=== PATIENT | female | born 1990 | race American Indian/Alaskan Native ===

== ENCOUNTER 2020-10-26 23:12 | Emergency (ER) | payer OTHER ==
--- OUTSIDE RECORDS SUMMARY | 2020-10-26 23:15 | XMS REPORT | Continuity of Care Document ---
:1990 Author Organization [facility] t Address [address] [place] [address] Care Team Providers Name Role Phone Ene Nieto PA-C Attending Clinician Doctor Unassigned, [place] Attending Clinician Unavailable Jorge L Tejeda MD Attending Clinician Nurse, [facility] Attending Clinician Unavailable Jorge L Tejeda MD Admitting Clinician Problems This patient has no known problems. Allergies, Adverse Reactions, Alerts This patient has no known allergies or adverse reactions. Medications This patient has no known medications. Procedures This patient has no known procedures. Encounters Start End Encounter Admission Attending Care Care Encounter Source Date/Time Date/Time Type Type Clinicians Facility Department ID 2020-07-02 2020-07-02 Routine NU Nieto [id number] 11:06:01 11:21:01 Ene Khan [id number] Visit [place] [id number] Professio [phone] [address] 2020-07-02 2020-07-02 Orders Doctor FLOR [id number] 00:00:00 00:00:00 Only UnassALTON ayala [id number] [place] [facility] [id number] 2020-06-14 2020-06-14 Telephone Darlene Tejeda [place]ER[place] [id number] 00:00:00 00:00:00 [place] [id number] [place] [id number] Professio [phone] [facility] 134 [facility] 2020-06-14 2020-06-14 Orders Doctor FLOR [id number] 00:00:00 00:00:00 Only Unassigned, [place] [id number] [place] [facility] [id number] [id number] 2020-06-11 2020-06-11 Nurse Nurse, [facility] [id number] 14:14:54 14:37:51 [facility] [place] [id number] [facility] [id number] Professio [phone] [facility] 134 [facility] 2020-06-03 2020-06-04 Hospital Darlene Tejeda [facility] [id number] 05:33:00 18:30:00 Encounter [place] [id number] [place] [id number] [place] [id number] [id number] 2020-06-03 2020-06-03 Orders Doctor FLOR [id number] 00:00:00 00:00:00 Only Unassigned, [place] [id number] [place] [facility] [id number] [id number] 2020-05-28 2020-05-28 Routine Darlene Tejeda [facility] [id number] 16:00:11 16:49:53 [place] [id number] Visit [place] [id number] Profess[facility] [phone] [address] Results This patient has no known results.
--- NOTE | 2020-10-27 00:13 | ER ---
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 Coronavirus screen: Client presents with at least one sign or symptom that may indicate coronavirus-19. Standard/surgical mask placed on the client. Provider contacted for isolation considerations. Client reports previous positive COVID test result. Date of collection: October 23, 2020. Ebola Screen: Patient negative for fever greater than or equal to 101.5 degrees Fahrenheit, and additional compatible Ebola Virus Disease symptoms Patient denies exposure to infectious person. Patient denies travel to an Ebola-affected area in the 21 days before illness onset. No symptoms or risks identified at this time. Initial Sepsis Screen: Does the patient meet any 2 criteria? HR > 90 bpm. No. Patient's initial sepsis screen is negative. Does the patient have a suspected source of infection? Yes: Productive cough/pneumonia. Risk Assessment: Do you want to hurt yourself or someone else? Patient reports no desire to harm self or others. Onset of symptoms was October 26, 2020. 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 - Social history:: Smoking status: Patient denies any tobacco usage or history of. Screenin:45 Abuse screen: Denies threats or abuse. Nutritional screening: No deficits noted. em Tuberculosis screening: No symptoms or risk factors identified. Fall Risk None identified. Assessment: 23:45 General: Appears in no apparent distress. comfortable, Behavior is calm, cooperative, em appropriate for age, Reports fever for 12-24 hours. Pain: Complains of pain in chest Pain currently is 4 out of 10 on a pain scale. Neuro: Level of Consciousness is awake, alert, obeys commands, Oriented to person, place, time, situation. Cardiovascular: Capillary refill < 3 seconds Patient's skin is warm and dry. Respiratory: Reports cough that is dry, hacking, pain with cough pain with movement pain with respiration Airway is patent Respiratory effort is even, unlabored. GI: Reports nausea. Derm: Skin is intact, is healthy with good turgor, Skin is pink, warm \T\ dry. Musculoskeletal: Capillary refill < 3 seconds, Range of motion: intact in all extremities. Vital Signs: 23:46 BP 141 / 97; Pulse 99; Resp 18; Temp 99.4(TE); Pulse Ox 100% on R/A; Weight 111.58 kg; em Height 5 ft. 6 in. (167.64 cm); Pain 4/10; 23:46 Body Mass Index 39.71 (111.58 kg, 167.64 cm) em ED Course: 23:30 Patient arrived in ED. am4 23:45 [facility] Wynne F[facility]-C [facility]. snw 23:45 Sohail Lopez MD is Attending Physician. snw 23:45 Patient has correct armband on for positive identification. Bed in low position. Adult em w/ patient. 23:50 Triage completed. em 23:50 Arm band placed on. em 10/27 00:17 Schuyler Rhodes, RN is Primary Nurse. fu 00:26 No provider procedures requiring assistance completed. Patient did not have IV access em during this emergency room visit. Administered Medications: No medications were administered Outcome: 00:12 Discharge ordered by . snw 00:41 Discharged to home ambulatory. em 00:41 Condition: stable 00:41 Discharge instructions given to patient, Instructed on discharge instructions, follow up and referral plans. medication usage, Demonstrated understanding of instructions, follow-up care, medications, Prescriptions given X 2. 00:43 Patient left the ED. em Signatures: Michelle Wynne FNP-C FNP-Benjamin Yanez RN RN Schyuler Rhodes, Malgorzata Shay RN am4
--- NOTE | 2020-10-27 00:13 | EDPHYS ---
Physician Documentation [facility] Name: Cecelia Polk Age: 30 yrs Sex: Female : 1990 Arrival Date: 10/26/2020 Time: 23:30 Bed 27 Private MD: ED Physician Sohail Lopez HPI: 10/27 00:48 This 30 yrs old Female presents to ER via Ambulatory with complaints of COVID SYMPTOMS. snw 00:48 Onset: The symptoms/episode began/occurred acutely, 8 day(s) ago, pt had Covid test at [facility] which was positive on . Pt has 4 month old that is . Associated signs and symptoms: Pertinent positives: congestion, cough, fever, shortness of breath, sore throat. The patient has not experienced similar symptoms in the past. The patient has not recently seen a physician. 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 - Social history:: Smoking status: Patient denies any tobacco usage or history of. ROS: 10/27 00:45 Eyes: Negative for injury, pain, redness, and discharge, ENT: Negative for injury, snw pain, and discharge, Neck: Negative for injury, pain, and swelling, Cardiovascular: Negative for chest pain, palpitations, and edema. Abdomen/GI: Negative for abdominal pain, nausea, vomiting, diarrhea, and constipation, Back: Negative for injury and pain, : Negative for injury, bleeding, discharge, and swelling, MS/Extremity: Negative for injury and deformity, Skin: Negative for injury, rash, and discoloration, Neuro: Negative for headache, weakness, numbness, tingling, and seizure, Psych: Negative for depression, anxiety, suicide ideation, homicidal ideation, and hallucinations. Constitutional: Positive for body aches, fatigue, fever, malaise. Respiratory: Positive for cough, shortness of breath. Exam: 00:45 Constitutional: This is a well developed, well nourished patient who is awake, alert, snw and in no acute distress. Head/Face: Normocephalic, atraumatic. Eyes: Pupils equal round and reactive to light, extra-ocular motions intact. Lids and lashes normal. Conjunctiva and sclera are non-icteric and not injected. Cornea within normal limits. Periorbital areas with no swelling, redness, or edema. ENT: Nares patent. No nasal discharge, no septal abnormalities noted. Tympanic membranes are normal and external auditory canals are clear. Oropharynx with no redness, swelling, or masses, exudates, or evidence of obstruction, uvula midline. Mucous membranes moist. Neck: Trachea midline, no thyromegaly or masses palpated, and no cervical lymphadenopathy. Supple, full range of motion without nuchal rigidity, or vertebral point tenderness. No Meningismus. Chest/axilla: Normal chest wall appearance and motion. Nontender with no deformity. No lesions are appreciated. Cardiovascular: Regular rate and rhythm with a normal S1 and S2. No gallops, murmurs, or rubs. Normal PMI, no JVD. No pulse deficits. Respiratory: Lungs have equal breath sounds bilaterally, clear to auscultation and percussion. No rales, rhonchi or wheezes noted. No increased work of breathing, no retractions or nasal flaring. Abdomen/GI: Soft, non-tender, with normal bowel sounds. No distension or tympany. No guarding or rebound. No evidence of tenderness throughout. Back: No spinal tenderness. No costovertebral tenderness. Full range of motion. Skin: Warm, dry with normal turgor. Normal color with no rashes, no lesions, and no evidence of cellulitis. MS/ Extremity: Pulses equal, no cyanosis. Neurovascular intact. Full, normal range of motion. Neuro: Awake and alert, GCS 15, oriented to person, place, time, and situation. Cranial nerves II-XII grossly intact. Motor strength 5/5 in all extremities. Sensory grossly intact. Cerebellar exam normal. Normal gait. Psych: Awake, alert, with orientation to person, place and time. Behavior, mood, and affect are within normal limits. Vital Signs: 10/26 23:46 BP 141 / 97; Pulse 99; Resp 18; Temp 99.4(TE); Pulse Ox 100% on R/A; Weight 111.58 kg; em Height 5 ft. 6 in. (167.64 cm); Pain 4/10; 23:46 Body Mass Index 39.71 (111.58 kg, 167.64 cm) em MDM: 10/27 00:02 Patient medically screened. snw 00:45 Data reviewed: vital signs, nurses notes. Data interpreted: Pulse oximetry: on room air snw is 100 %. Interpretation: normal. Counseling: I had a detailed discussion with the patient and/or guardian regarding: the historical points, exam findings, and any diagnostic results supporting the discharge/admit diagnosis, the need for outpatient follow up, to return to the emergency department if symptoms worsen or persist or if there are any questions or concerns that arise at home. Special discussion: and medications. Covid and quarantine. Medical screen evaluation completed. EMTALA emergency medical condition absent. ED course: Pt is frustrated that there is no treatment for CoVid. Pt is tired and and having difficulty understandng that there is no specific treatment to make her feel better faster. Administered Medications: No medications were administered Disposition: 06:07 Co-signature as Attending Physician, Sohail Lopez MD. [email or web address] Disposition: 10/27/20 00:12 Discharged to Home. Impression: SARS-associated coronavirus as the cause of diseases classified elsewhere. - Condition is Stable. - Discharge Instructions: Metered Dose Inhaler with Spacer, COVID-19. - Prescriptions for Vitamin 27- 0.8 mg Oral Tablet - take 1 tablet by ORAL route once daily; 60 tablet. Albuterol Sulfate 90 mcg/actuation - inhale 1-2 puff by INHALATION route every 4-6 hours; 1 Inhaler. - Medication Reconciliation Form, Thank You Letter, Antibiotic Education, Prescription Opioid Use form. - Follow up: Emergency Department; When: As needed; Reason: Worsening of condition. Follow up: Private Physician; When: 1 week; Reason: Recheck today's complaints, Continuance of care, Re-evaluation by your physician. Signatures: Michelle Wynne FNP-C REWIND OPERATOR-Benjamin Yanez RN RN Sohail Traylor MD MD [email or web address] Corrections: (The following items were deleted from the chart) 00:43 00:12 10/27/2020 00:12 Discharged to Home. Impression: SARS-associated coronavirus as em the cause of diseases classified elsewhere. Condition is Stable. Forms are Medication Reconciliation Form, Thank You Letter, Antibiotic Education, Prescription Opioid Use. Follow up: Emergency Department; When: As needed; Reason: Worsening of condition. Follow up: Private Physician; When: 1 week; Reason: Recheck today's complaints, Continuance of care, Re-evaluation by your physician. snw
[2020-10-27 01:05] VITALS: BP 141/97; TEMP 99.4; O2SAT 100
== END 2020-10-27 00:43 | disposition home or self-care (01) ==
LOC: ER 23:12
DX: U07.1 COVID-19 (principal)
CPT/HCPCS: 99282

== ENCOUNTER 2021-08-16 23:35 | Emergency (ER) | payer OTHER ==
--- OUTSIDE RECORDS SUMMARY | 2021-08-16 23:40 | XMS REPORT | Continuity of Care Document ---
:1990 Author Organization [facility] t Address [address] [place] [address] [address]. [address] [place] [address] Care Team Providers Name Role Phone ENE RICCI Attending Clinician Unavailable KAYLEEN SCHAEFER Attending Clinician Unavailable Betzy Griggs MD Attending Clinician Keiry NOONAN Attending Clinician Doctor Unassigned, Name Attending Clinician Unavailable Nurse, Women's Health Attending Clinician Unavailable BETZY GRIGGS Attending Clinician Unavailable Only, Test Attending Clinician Unavailable 2, Lab Attending Clinician Unavailable Ultrasound, Mfm Attending Clinician Unavailable Lab, Fam Pob I Attending Clinician Unavailable Anene [employer] Attending Clinician Ultrasound Attending Clinician Unavailable Rao CORDERO, F Attending Clinician Betzy Griggs MD Admitting Clinician BETZY GRIGGS Admitting Clinician Unavailable Payers Payer Name Policy Type Policy Number Effective Date Expiration Date S cj [employer] [id number] 2019 HEALTH 00:00:00 Problems Condition Condition Condition Status Onset Resolution Last Treating Co mments Source Name Details Category Date Date Treatment Clinician Date 39 weeks 39 weeks Disease Active 2019-08 Unive rs gestation gestation 0-26 ity of of of 00:00: [place] 00 [facility] Liveborn Liveborn Disease Active 2019-08 Unive rs , of , of 0-26 [place] y of [place] , , [place] born in born in [facility] by by delivery delivery Morbid Morbid Disease Active Univers obesity obesity 8-28 ity of with body with body [place] mass index mass index 00 Me dical of of Branch 40.0-49.9 40.0-49.9 Obesity Obesity Disease Active Univers (BMI (BMI 4-20 ity of 30-39.9) 30-39.9) 00:00: [place] 00 Medical [place] Mild Mild Disease Active Univers intermitte intermitte 4-20 it y of nt asthma nt asthma 00:[place] without without 00 Medical complicati complicati Br anch on on Supervisio Supervisio Disease Active U nivers n of other n of other 4-20 it y of normal normal 00:00: [place] 00 [facility] Previous Previous Disease Active Unive rs 4-20 ity of section section 00:00: [address] Allergies, Adverse Reactions, Alerts Allergy Allergy Status Severity Reaction(s) Onset Inactive Treating Comm ents Source Name Type Date Date Clinician NO KNOWN Drug Active Univers ALLERGIE Class ity of S [facility] Social History Social Habit Start Date Stop Date Quantity Comments Source ASSERTION 2019-09-17 [facility] 00:00:00 [facility] Exposure to Not sure [facility] SARS-CoV-[address] [facility] (event) [place] Alcohol intake 2020-07-02 2020-07-02 Ex-drinker [facility] 00:00:00 00:00:00 (finding) [facility] Tobacco use and 2020-07-02 2020-07-02 Never used Universit y of exposure 00:00:00 00:00:00 [facility] Sex [birth year] Universit y of 00:00:00 00:00:00 [facility] Smoking Status Start Date Stop Date Source Never smoker [facility] Medications Ordered Filled Start Stop Current Ordering Indication Dosage Frequency Signature Comments Components Source Medication Medication Date Date Medication? Clinician (SIG) Name Name norethindro 2019-08 Yes [id number] 1{tbl} Take 1 Univers ne 0.35 mg 1-24 tablet by ity of tablet 00:00: mouth [place] 00 daily. Medical Branch norethindro 2019-08 Yes [id number] 1{tbl} Take 1 Univers ne 0.35 mg 1-24 tablet by ity of tablet 00:00: mouth [place] 00 daily. Medical Branch norethindro 2019-08 Yes [id number] 1{tbl} Take 1 Univers ne 0.35 mg 1-24 tablet by ity of tablet 00:00: mouth 00 daily. Medical Branch ibuprofen 2019-08 Yes 600mg 600 mg, Univ ers (IBU) 0-28 Oral, Q6H ity of tablet 600 05:00: ABX, First [place] mg 00 dose on Medical Wed Branch 06/05/20 at 0000, Until Discontinu ed, Routine PNV 2019-08 2020- No Take by [facility] 102-iron-fo 0-27 27 mouth. ity o f late 15:53: 00:00 [place] 1-dss-dha 17 :00 Medical 90 mg Branch iron-1 mg -50 mg-200 mg Cap HYDROcodone 2019-08 Yes 1{tbl} 1 tablet, Univers -acetaminop 027 Oral, ity of hen (NORCO 15:49: Q6HPRN, [place] 5) 5-325 mg 16 Starting Medi sarbjit tablet 1 Wed tablet 06/04/20 at 1049, Until Discontinu ed, Routine, Pain (scale 7-10) acetaminoph 2019-08 Yes 650mg 650 mg, Un neal en 027 Oral, Q6H ity of (TYLENOL) 13:45: ABX, First [place] tablet 650 00 dose on Medica l mg Wed [place] 06/04/20 at 0845, Until Discontinu ed, Routine ketorolac 2019-08 2020- No 30mg 30 mg, Unive rs (TORADOL) 006-04 Slow IV ity of injection 05:00: 22:40 Push, Q6H [place] 30 mg 00 :00 ABX, 4 Medical doses, Branch First dose on Wed06/04/20 at 0000, Last dose on Wed06/04/20 at 1800, Routine
membership coordinator approving Restricted medication : KINDRA GRIGGS CAM gabapentin 2019-08 Yes 300mg 300 mg, Uni vers (NEURONTIN) 0-27 Oral, Q8H, it y of capsule 300 03:00: First dose [place] mg 00 (after Medical last Branch modificati on) on 06/03/20 at 2200, Until Discontinu ed, Routine acetaminoph 2020-1 Yes [id number] 650mg Take 2 Univers en 325 mg 0-27 tablets by ity of tablet 00:00: mouth [place] 00 every 6 Medical (six) Branch hours as needed for Pain (scale 1-3) or Pain (scale 4-6). 2019-08 Yes [id number] 1{tbl} Take 1 Univers vitamin 0-27 tablet by ity of w/FA tablet 00:00: mouth [place] 00 daily. Medical Branch docusate 2019-08 Yes [id number] 240mg Take 1 U nivers calcium 240 0-27 capsule by it y of mg capsule 00:00: mouth once [place] 00 daily as Medical needed for Branch Constipati on. ferrous 2019-08 Yes [id number] 325mg Take 1 Un neal sulfate 325 0-27 tablet by ity of mg (65 mg 00:00: mouth 2 [place] iron) 00 (two) Medical tablet times Branch daily. ibuprofen 2019-08 Yes [id number] 600mg Take 1 Univers 600 mg 0-27 tablet by ity of tablet 00:00: mouth [place] 00 every 6 Medical (six) Branch hours as needed for Pain (scale 1-3) or Pain (scale 4-6) (Pain). Take with food or milk. acetaminoph 2019-08 Yes [id number] 650mg Take 2 Univers en 325 mg 0-27 tablets by ity of tablet 00:00: mouth [place] 00 every 6 Medical (six) Branch hours as needed for Pain (scale 1-3) or Pain (scale 4-6). 2019-08 Yes [id number] 1{tbl} Take 1 Univers vitamin 0-27 tablet by ity of w/FA tablet 00:00: mouth [place] 00 daily. Medical Branch docusate 2019-08 Yes [id number] 240mg Take 1 U nivers calcium 240 0-27 capsule by it y of mg capsule 00:00: mouth once [place] 00 daily as Medical needed for Branch Constipati on. ferrous 2019-08 Yes [id number] 325mg Take 1 Un neal sulfate 325 0-27 tablet by ity of mg (65 mg 00:00: mouth 2 [place] iron) 00 (two) Medical tablet times Branch daily. ibuprofen 2019-08 Yes [id number] 600mg Take 1 Univers 600 mg 0-27 tablet by ity of tablet 00:00: mouth [place] 00 every 6 Medical (six) Branch hours as needed for Pain (scale 1-3) or Pain (scale 4-6) (Pain). Take with food or milk. acetaminoph 2019-08 Yes [id number] 650mg Take 2 Univers en 325 mg 0-27 tablets by ity of tablet 00:00: mouth [place] 00 every 6 Medical (six) Branch hours as needed for Pain (scale 1-3) or Pain (scale 4-6). 2019-08 Yes [id number] 1{tbl} Take 1 Univers vitamin 0-27 tablet by ity of w/FA tablet 00:00: mouth [place] 00 daily. Medical Branch docusate 2019-08 Yes [id number] 240mg Take 1 U nivers calcium 240 0-27 capsule by it y of mg capsule 00:00: mouth once [place] 00 daily as Medical needed for Branch Constipati on. ferrous 2019-08 Yes [id number] 325mg Take 1 Un neal sulfate 325 0-27 tablet by ity of mg (65 mg 00:00: mouth 2 [place] iron) 00 (two) Medical tablet times Branch daily. ibuprofen 2019-08 Yes [id number] 600mg Take 1 Univers 600 mg 0-27 tablet by ity of tablet 00:00: mouth [place] 00 every 6 Medical (six) Branch hours as needed for Pain (scale 1-3) or Pain (scale 4-6) (Pain). Take with food or milk. acetaminoph 2019-08 Yes [id number] 650mg Take 2 Univers en 325 mg 0-27 tablets by ity of tablet 00:00: mouth [place] 00 every 6 Medical (six) Branch hours as needed for Pain (scale 1-3) or Pain (scale 4-6). 2019-08 Yes [id number] 1{tbl} Take 1 Univers vitamin 0-27 tablet by ity of w/FA tablet 00:00: mouth [place] 00 daily. Medical Branch docusate 2019-08 Yes [id number] 240mg Take 1 U nivers calcium 240 0-27 capsule by it y of mg capsule 00:00: mouth once [place] 00 daily as Medical needed for Branch Constipati on. ferrous 2019-08 Yes [id number] 325mg Take 1 Un neal sulfate 325 0-27 tablet by ity of mg (65 mg 00:00: mouth 2 [place] iron) 00 (two) Medical tablet times Branch daily. ibuprofen 2019-08 Yes [id number] 600mg Take 1 Univers 600 mg 0-27 tablet by ity of tablet 00:00: mouth [place] 00 every 6 Medical (six) Branch hours as needed for Pain (scale 1-3) or Pain (scale 4-6) (Pain). Take with food or milk. acetaminoph 2019-08 Yes [id number] 650mg Take 2 Univers en 325 mg 0-27 tablets by ity of tablet 00:00: mouth [place] 00 every 6 Medical (six) Branch hours as needed for Pain (scale 1-3) or Pain (scale 4-6). 2019-08 Yes [id number] 1{tbl} Take 1 Univers vitamin 0-27 tablet by ity of w/FA tablet 00:00: mouth [place] 00 daily. Medical Branch docusate 2019-08 Yes [id number] 240mg Take 1 U nivers calcium 240 0-27 capsule by it y of mg capsule 00:00: mouth once [place] 00 daily as Medical needed for Branch Constipati on. ferrous 2019-08 Yes [id number] 325mg Take 1 Un neal sulfate 325 0-27 tablet by ity of mg (65 mg 00:00: mouth 2 [place] iron) 00 (two) Medical tablet times Branch daily. ibuprofen 2019-08 Yes [id number] 600mg Take 1 Univers 600 mg 0-27 tablet by ity of tablet 00:00: mouth [place] 00 every 6 Medical (six) Branch hours as needed for Pain (scale 1-3) or Pain (scale 4-6) (Pain). Take with food or milk. acetaminoph 2019-08 Yes [id number] 650mg Take 2 Univers en 325 mg 0-27 tablets by ity of tablet 00:00: mouth [place] 00 every 6 Medical (six) Branch hours as needed for Pain (scale 1-3) or Pain (scale 4-6). 2019-08 Yes [id number] 1{tbl} Take 1 Univers vitamin 0-27 tablet by ity of w/FA tablet 00:00: mouth [place] 00 daily. Medical Branch ferrous 2019-08 Yes [id number] 325mg Take 1 Un neal sulfate 325 0-27 tablet by ity of mg (65 mg 00:00: mouth 2 [place] iron) 00 (two) Medical tablet times Branch daily. ibuprofen 2020-1 Yes [id number] 600mg Take 1 Univers 600 mg 0-27 tablet by ity of tablet 00:00: mouth [place] 00 every 6 Medical (six) Branch hours as needed for Pain (scale 1-3) or Pain (scale 4-6) (Pain). Take with food or milk. acetaminoph 2019-08 Yes [id number] 650mg Take 2 Univers en 325 mg 0-27 tablets by ity of tablet 00:00: mouth [place] 00 every 6 Medical (six) Branch hours as needed for Pain (scale 1-3) or Pain (scale 4-6). 2019-08 Yes [id number] 1{tbl} Take 1 Univers vitamin 0-27 tablet by ity of w/FA tablet 00:00: mouth [place] 00 daily. Medical Branch ferrous 2019-08 Yes [id number] 325mg Take 1 Un neal sulfate 325 0-27 tablet by ity of mg (65 mg 00:00: mouth 2 [place] iron) 00 (two) Medical tablet times Branch daily. ibuprofen 2019-08 Yes [id number] 600mg Take 1 Univers 600 mg 0-27 tablet by ity of tablet 00:00: mouth [place] 00 every 6 Medical (six) Branch hours as needed for Pain (scale 1-3) or Pain (scale 4-6) (Pain). Take with food or milk. acetaminoph 2019-08 Yes [id number] 650mg Take 2 Univers en 325 mg 0-27 tablets by ity of tablet 00:00: mouth [place] 00 every 6 Medical (six) Branch hours as needed for Pain (scale 1-3) or Pain (scale 4-6). 2019-08 Yes [id number] 1{tbl} Take 1 Univers vitamin 0-27 tablet by ity of w/FA tablet 00:00: mouth [place] 00 daily. Medical Branch ferrous 2019-08 Yes [id number] 325mg Take 1 Un neal sulfate 325 0-27 tablet by ity of mg (65 mg 00:00: mouth 2 [place] iron) 00 (two) Medical tablet times Branch daily. ibuprofen 2019-08 Yes [id number] 600mg Take 1 Univers 600 mg 0-27 tablet by ity of tablet 00:00: mouth [place] 00 every 6 Medical (six) Branch hours as needed for Pain (scale 1-3) or Pain (scale 4-6) (Pain). Take with food or milk. docusate 2019-08- No [id number] 240mg Take 1 Univers calcium 240 0-27 11-24 capsule by i ty of mg capsule 00:00: 00:00 mouth once [place] 00 :00 daily as Medical needed for Branch Constipati on. HYDROcodone 2019-08- No [id number] 1{tbl} Take 1 U nivers -acetaminop 0-27 11-04 tablet by it y of hen 5-325 00:00: 05:59 mouth [place] mg tablet 00 :00 every 6 Medical (six) Branch hours as needed for Pain (scale 7-10) for up to 7 days. Indication s: acute pain HYDROcodone 2019-08- No [id number] 1{tbl} Take 1 U nivers -acetaminop 0-27 11-04 tablet by it y of hen 5-325 00:00: 05:59 mouth [place] mg tablet 00 :00 every 6 Medical (six) Branch hours as needed for Pain (scale 7-10) for up to 7 days. Indication s: acute pain HYDROcodone 2019-08- No [id number] 1{tbl} Take 1 U nivers -acetaminop 0-27 11-04 tablet by it y of hen 5-325 00:00: 05:59 mouth [place] mg tablet 00 :00 every 6 Medical (six) Branch hours as needed for Pain (scale 7-10) for up to 7 days. Indication s: acute pain gabapentin 2019-08- No [id number] 300mg Take 1 Univers 300 mg 0-27 11-02 capsule by ity of capsule 00:00: 05:59 mouth [place] 00 :00 every 8 Medical (eight) Branch hours for 5 days. gabapentin 2019-08- No [id number] 300mg Take 1 Univers 300 mg 0-27 11-02 capsule by ity of capsule 00:00: 05:59 mouth [place] 00 :00 every 8 Medical (eight) Branch hours for 5 days. acetaminoph 2019-08- No 1000mg 1,000 mg, Univers en ADULT 06-03 IV ity of (OFIRMEV) 19:45: 19:59 Infusion, [place] injection 00 :00 Administer Medi sarbjit 1,000 mg over 15 Branch Minutes, ONCE, 1 dose, Wed06/03/20 at 1445, Routine, PACU
Indicatio n: Perioperat chantal Patient gabapentin 2019-08 2020- No 300mg 300 mg, Un neal (NEURONTIN) 0-26 10-26 Oral, TID, i ty of capsule 300 19:00: 22:40 First dose [place] mg 00 :54 on Mon Medical 06/03/20 Branch at 1400, Until Discontinu ed, Routine simethicone 2019-08 Yes 160mg 160 mg, Un neal (GAS RELIEF 0-26 Oral, ity of (SIMETHICON 18:00: PC+HS, [place] E)) 00 First dose Medical chewable on Wed Branch tablet 160 06/03/20 mg at 1300, Until Discontinu ed, Routine lactated 2019-08 Yes 1000mL at 75 Univer s ringers IV 0-26 mL/hr, ity of infusion 16:30: 1,000 mL, [place] 1,000 mL 00 IV Medical Infusion, Branch CONTINUOUS , Starting 06/03/20 at 1130, Until Discontinu ed, Routine, PACU lactated 2019-08 2020- No 1000mL at 125 Univ ers ringers IV 0-26 10-27 mL/hr, ity of infusion 16:30: 01:01 1,000 mL, [place] 1,000 mL 00 :00 IV Medical Infusion, Branch ONCE, 1 dose, 06/03/20 at 1130, Routine rho(D) 2019-08 Yes 300ug 300 mcg, Univer s immune 0-26 Intramuscu ity of globulin 16:25: lar, ONCE, [place] (RHOGAM) 26 For 1 Medical syringe 300 dose, Branch mcg Conditiona l, Routine ondansetron 2019-08 Yes 4mg 4 mg, Slow Univers (ZOFRAN 0-26 IV Push, ity of (PF)) 16:25: Q8HPRN, [place] injection 4 13 Starting Medi sarbjit mg Mon Branch 06/03/20 at 1125, Until Discontinu ed, Routine, Nausea and Vomiting (N/V) magnesium 2019-08 Yes 30mL 30 mL, Univer s hydroxide 0-26 Oral, ity of (MILK OF 16:25: QDAILYPRN, [place] MAGNESIA) 13 Starting Medica l 400 mg/5 mL Mon Branch suspension 06/03/20 30 mL at 1125, Until Discontinu ed, Routine, Constipati on diphenhydrA 2019-08 Yes 25mg 25 mg, Univ ers MINE 0-26 Oral, ity of (BENADRYL) 16:25: Q6HPRN, [place] tablet 25 12 Starting Medica l mg [facility] 06/03/20 at 1125, Until Discontinu ed, Routine, Sleep, Itching bisacodyL 2019-08 Yes 10mg 10 mg, Univer s (DULCOLAX) 0-26 Rectal, ity of suppository 16:25: QDAILYPRN, [place] 10 mg 12 Starting Medical [facility] 06/03/20 at 1125, Until Discontinu ed, Routine, Constipati on docusate 2019-08 Yes 240mg 240 mg, Unive rs calcium 0-26 Oral, ity of (SURFAK) 16:25: QDAILYPRN, [place] capsule 240 12 Starting Medi sarbjit mg [facility] 06/03/20 at 1125, Until Discontinu ed, Routine, Constipati on ondansetron 2019-08 Yes 4mg 4 mg, Slow Univers (ZOFRAN 0-26 IV Push, ity of (PF)) 16:24: PRN, 1 [place] injection 4 51 dose, Medical mg Starting [facility] 06/03/20 at 1124, Until Discontinu ed, Routine, Nausea and Vomiting (N/V), PACU mupirocin 2019-08 Yes Intra-op Univ ers (BACTROBAN 0-26 ity of OINT) 2 % 14:20: [place] skin 00 Medical ointment Branch lactated 2019-08 2020- No 500mL at 999 Unive rs ringers IV 0-26 10-26 mL/hr, 500 it y of infusion 13:30: 12:37 mL, IV [place] 500 mL 00 :00 Infusion, Medical ONCE, 1 Branch dose, [facility] 06/03/20 at 0830, Routine sodium 2019-08 Yes PRN, Univers chloride 0-26 Starting ity of 0.9 % 13:28: Mon [place] irrigation 00 06/03/20 Medic al solution at 0828, Branch Until Discontinu ed, Intra-op sodium 2019-08 2020- No 30mL 30 mL, Univers citrate-cit 0-26 10-26 Oral, ity of rach acid 12:23: 12:36 PRE-PROCED [place] (BICITRA) 52 :00 URE ONCE, Medic al 500-334 1 dose, Branch mg/5 mL Starting solution 30 Mon mL 06/03/20 at 0723, Until 06/03/20 at 0736, Routine, Surgery PNV 2020-0 Yes Take by [facility] 102-iron-fo 4-20 mouth. ity of late 14:: [place] 1-dss-dha 37 Medical 90 mg Branch iron-1 mg -50 mg-200 mg Cap PNV 2020-0 Yes Take by [facility] 102-iron-fo 4-20 mouth. ity of late 14:: [place] 1-dss-dha 37 Medical 90 mg Branch iron-1 mg -50 mg-200 mg Cap PNV 2020-0 Yes Take by [facility] 102-iron-fo 4-20 mouth. ity of late :: [place] 1-dss-dha 37 Medical 90 mg Branch iron-1 mg -50 mg-200 mg Cap PNV 2020-0 Yes Take by [facility] 102-iron-fo 4-20 mouth. ity of late :: [place] 1-dss-dha 37 Medical 90 mg Branch iron-1 mg -50 mg-200 mg Cap PNV 2020-0 Yes Take by [facility] 102-iron-fo 4-20 mouth. ity of late :: [place] 1-dss-dha 37 Medical 90 mg Branch iron-1 mg -50 mg-200 mg Cap PNV 2020-0 Yes Take by [facility] 102-iron-fo 4-20 mouth. ity of late :: [place] 1-dss-dha 37 Medical 90 mg Branch iron-1 mg -50 mg-200 mg Cap PNV 2020-0 Yes Take by [facility] 102-iron-fo 4-20 mouth. ity of late :: [place] 1-dss-dha 37 Medical 90 mg Branch iron-1 mg -50 mg-200 mg Cap PNV 2020-0 Yes Take by [facility] 102-iron-fo 4-20 mouth. ity of late :: [place] 1-dss-dha 37 Medical 90 mg Branch iron-1 mg -50 mg-200 mg Cap PNV 2020-0 Yes Take by [facility] 102-iron-fo 4-20 mouth. ity of late :: [place] 1-dss-dha 37 Medical 90 mg Branch iron-1 mg -50 mg-200 mg Cap PNV 2020-0 Yes Take by [facility] 102-iron-fo 4-20 mouth. ity of late 14:01: [place] 1-dss-dha 37 Medical 90 mg Branch iron-1 mg -50 mg-200 mg Cap PNV 2020-0 Yes Take by Univers 102-iron-fo 4-20 mouth. ity of late 14:: [place] 1-dss-dha 37 Medical 90 mg Branch iron-1 mg -50 mg-200 mg Cap PNV 2020-0 Yes Take by Univers 102-iron-fo 4-20 mouth. ity of late 14:: [place] 1-dss-dha 37 Medical 90 mg Branch iron-1 mg -50 mg-200 mg Cap PNV 2020-0 Yes Take by Univers 102-iron-fo 4-20 mouth. ity of late 14:: [place] 1-dss-dha 37 Medical 90 mg Branch iron-1 mg -50 mg-200 mg Cap PNV 2020-0 Yes Take by Univers 102-iron-fo 4-20 mouth. ity of late 14:: [place] 1-dss-dha 37 Medical 90 mg Branch iron-1 mg -50 mg-200 mg Cap PNV 2020-0 Yes Take by Univers 102-iron-fo 4-20 mouth. ity of late 14:: [place] 1-dss-dha 37 Medical 90 mg Branch iron-1 mg -50 mg-200 mg Cap PNV 2020-0 Yes Take by Univers 102-iron-fo 4-20 mouth. ity of late 14:: [place] 1-dss-dha 37 Medical 90 mg Branch iron-1 mg -50 mg-200 mg Cap PNV 2020-0 Yes Take by Univers 102-iron-fo 4-20 mouth. ity of late 14:: [place] 1-dss-dha 37 Medical 90 mg Branch iron-1 mg -50 mg-200 mg Cap PNV 2020-0 Yes Take by Univers 102-iron-fo 4-20 mouth. ity of late 14:: [place] 1-dss-dha 37 Medical 90 mg Branch iron-1 mg -50 mg-200 mg Cap PNV 2020-0 Yes Take by Univers 102-iron-fo 4-20 mouth. ity of late 14:: [place] 1-dss-dha 37 Medical 90 mg Branch iron-1 mg -50 mg-200 mg Cap PNV 2020-0 Yes Take by Univers 102-iron-fo 4-20 mouth. ity of late 14:: [place] 1-dss-dha 37 Medical 90 mg Branch iron-1 mg -50 mg-200 mg Cap PNV 2020-0 Yes Take by Univers 102-iron-fo 4-20 mouth. ity of late 14:01: [place] 1-dss-dha 37 Medical 90 mg Branch iron-1 mg -50 mg-200 mg Cap PNV 2020-0 Yes Take by Univers 102-iron-fo 4-20 mouth. ity of late 14:01: [place] Hanna-dss-dha 37 Medical 90 mg Branch iron-1 mg -50 mg-200 mg Cap PNV 2020-0 Yes Take by Univers 102-iron-fo 4-20 mouth. ity of late 14:01: [place] 1-dss-dha 37 Medical 90 mg Branch iron-1 mg -50 mg-200 mg Cap PNV 2020-0 Yes Take by Univers 102-iron-fo 4-20 mouth. ity of late 14:01: [place] Ferreira-dss-dha 37 Medical 90 mg Branch iron-1 mg -50 mg-200 mg Cap PNV 2020-0 Yes Take by Univers 102-iron-fo 4-20 mouth. ity of late 14:: [place] Ferreira-dss-dha 37 Medical 90 mg Branch iron-1 mg -50 mg-200 mg Cap PNV 2020-0 Yes Take by Univers 102-iron-fo 4-20 mouth. ity of late 14:01: [place] 1-dss-dha 37 Medical 90 mg Branch iron-1 mg -50 mg-200 mg Cap PNV 2020-0 Yes Take by Univers 102-iron-fo 4-20 mouth. ity of late 14:: [place] Ferreira-dss-dha 37 Medical 90 mg Branch iron-1 mg -50 mg-200 mg Cap PNV 2020-0 Yes Take by Univers 102-iron-fo 4-20 mouth. ity of late 14:01: [place] 1-dss-dha 37 Medical 90 mg Branch iron-1 mg -50 mg-200 mg Cap PNV 2020-0 Yes Take by Univers 102-iron-fo 4-20 mouth. ity of late 14:01: [place] 1-dss-dha 37 Medical 90 mg Branch iron-1 mg -50 mg-200 mg Cap PNV 2020-0 Yes Take by Univers 102-iron-fo 4-20 mouth. ity of late 14:: [place] 1-dss-dha 37 Medical 90 mg Branch iron-1 mg -50 mg-200 mg Cap PNV 2020-0 Yes Take by [facility] 102-iron-fo 4-20 mouth. ity of late 14:01: [place] Hanna-dss-dha 37 Medical 90 mg Branch iron-1 mg -50 mg-200 mg Cap PNV 2020-0 Yes Take by [facility] 102-iron-fo 4-20 mouth. ity of late 14:01: [place] Hanna-dss-dha 37 Medical 90 mg Branch iron-1 mg -50 mg-200 mg Cap PNV 2020-0 Yes Take by [facility] 102-iron-fo 4-20 mouth. ity of late 14:01: [place] Hanna-dss-dha 37 Medical 90 mg Branch iron-1 mg -50 mg-200 mg Cap PNV 2020-0 Yes Take by [facility] 102-iron-fo 4-20 mouth. ity of late 14:01: [place] Hanna-dss-dha 37 Medical 90 mg Branch iron-1 mg -50 mg-200 mg Cap albuterol 2020-0 Yes [id number] 2{puff} Inhale 2 Univers 90 4-20 Puffs ity of mcg/actuati 00:00: every 6 Dima as on inhaler 00 (six) Medical hours as Branch needed for Wheezing, Shortness of Breath, Bronchospa sm or Chest tightness. albuterol 2020-0 Yes [id number] 2{puff} Inhale 2 Univers 90 4-20 Puffs ity of mcg/actuati 00:00: every 6 Dima as on inhaler 00 (six) Medical hours as Branch needed for Wheezing, Shortness of Breath, Bronchospa sm or Chest tightness. albuterol 2020-0 Yes [id number] 2{puff} Inhale 2 Univers 90 4-20 Puffs ity of mcg/actuati 00:00: every 6 Dima as on inhaler 00 (six) Medical hours as Branch needed for Wheezing, Shortness of Breath, Bronchospa sm or Chest tightness. albuterol 2020-0 Yes [id number] 2{puff} Inhale 2 Univers 90 4-20 Puffs ity of mcg/actuati 00:00: every 6 Dima as on inhaler 00 (six) Medical hours as Branch needed for Wheezing, Shortness of Breath, Bronchospa sm or Chest tightness. albuterol 2020-0 Yes [id number] 2{puff} Inhale 2 Univers 90 4-20 Puffs ity of mcg/actuati 00:00: every 6 Dima as on inhaler 00 (six) Medical hours as Branch needed for Wheezing, Shortness of Breath, Bronchospa sm or Chest tightness. albuterol 2020-0 Yes [id number] 2{puff} Inhale 2 Univers 90 4-20 Puffs ity of mcg/actuati 00:00: every 6 Dima as on inhaler 00 (six) Medical hours as Branch needed for Wheezing, Shortness of Breath, Bronchospa sm or Chest tightness. albuterol 2020-0 Yes [id number] 2{puff} Inhale 2 Univers 90 4-20 Puffs ity of mcg/actuati 00:00: every 6 Dima as on inhaler 00 (six) Medical hours as Branch needed for Wheezing, Shortness of Breath, Bronchospa sm or Chest tightness. albuterol 2020-0 Yes [id number] 2{puff} Inhale 2 Univers 90 4-20 Puffs ity of mcg/actuati 00:00: every 6 Dima as on inhaler 00 (six) Medical hours as Branch needed for Wheezing, Shortness of Breath, Bronchospa sm or Chest tightness. albuterol 2020-0 Yes [id number] 2{puff} Inhale 2 Univers 90 4-20 Puffs ity of mcg/actuati 00:00: every 6 Dima as on inhaler 00 (six) Medical hours as Branch needed for Wheezing, Shortness of Breath, Bronchospa sm or Chest tightness. albuterol 2020-0 Yes [id number] 2{puff} Inhale 2 Univers 90 4-20 Puffs ity of mcg/actuati 00:00: every 6 [place] as on inhaler 00 (six) Medical hours as Branch needed for Wheezing, Shortness of Breath, Bronchospa sm or Chest tightness. albuterol 2020-0 Yes [id number] 2{puff} Inhale 2 Univers 90 4-20 Puffs ity of mcg/actuati 00:00: every 6 [place] as on inhaler 00 (six) Medical hours as Branch needed for Wheezing, Shortness of Breath, Bronchospa sm or Chest tightness. albuterol 2020-0 Yes [id number] 2{puff} Inhale 2 Univers 90 4-20 Puffs ity of mcg/actuati 00:00: every 6 [place] as on inhaler 00 (six) Medical hours as Branch needed for Wheezing, Shortness of Breath, Bronchospa sm or Chest tightness. albuterol 2020-0 Yes [id number] 2{puff} Inhale 2 Univers 90 4-20 Puffs ity of mcg/actuati 00:00: every 6 [place] as on inhaler 00 (six) Medical hours as Branch needed for Wheezing, Shortness of Breath, Bronchospa sm or Chest tightness. albuterol 2020-0 Yes [id number] 2{puff} Inhale 2 Univers 90 4-20 Puffs ity of mcg/actuati 00:00: every 6 [place] as on inhaler 00 (six) Medical hours as Branch needed for Wheezing, Shortness of Breath, Bronchospa sm or Chest tightness. albuterol 2020-0 Yes [id number] 2{puff} Inhale 2 Univers 90 4-20 Puffs ity of mcg/actuati 00:00: every 6 [place] as on inhaler 00 (six) Medical hours as Branch needed for Wheezing, Shortness of Breath, Bronchospa sm or Chest tightness. albuterol 2020-0 Yes [id number] 2{puff} Inhale 2 Univers 90 4-20 Puffs ity of mcg/actuati 00:00: every 6 [place] as on inhaler 00 (six) Medical hours as Branch needed for Wheezing, Shortness of Breath, Bronchospa sm or Chest tightness. albuterol 2020-0 Yes [id number] 2{puff} Inhale 2 Univers 90 4-20 Puffs ity of mcg/actuati 00:00: every 6 [place] as on inhaler 00 (six) Medical hours as Branch needed for Wheezing, Shortness of Breath, Bronchospa sm or Chest tightness. albuterol 2020-0 Yes [id number] 2{puff} Inhale 2 Univers 90 4-20 Puffs ity of mcg/actuati 00:00: every 6 [place] as on inhaler 00 (six) Medical hours as Branch needed for Wheezing, Shortness of Breath, Bronchospa sm or Chest tightness. albuterol 2020-0 Yes [id number] 2{puff} Inhale 2 Univers 90 4-20 Puffs ity of mcg/actuati 00:00: every 6 [place] as on inhaler 00 (six) Medical hours as Branch needed for Wheezing, Shortness of Breath, Bronchospa sm or Chest tightness. albuterol 2020-0 Yes [id number] 2{puff} Inhale 2 Univers 90 4-20 Puffs ity of mcg/actuati 00:00: every 6 [place] as on inhaler 00 (six) Medical hours as Branch needed for Wheezing, Shortness of Breath, Bronchospa sm or Chest tightness. albuterol 2020-0 Yes [id number] 2{puff} Inhale 2 Univers 90 4-20 Puffs ity of mcg/actuati 00:00: every 6 [place] as on inhaler 00 (six) Medical hours as Branch needed for Wheezing, Shortness of Breath, Bronchospa sm or Chest tightness. albuterol 2020-0 Yes [id number] 2{puff} Inhale 2 Univers 90 4-20 Puffs ity of mcg/actuati 00:00: every 6 [place] as on inhaler 00 (six) Medical hours as Branch needed for Wheezing, Shortness of Breath, Bronchospa sm or Chest tightness. albuterol 2020-0 Yes [id number] 2{puff} Inhale 2 Univers 90 4-20 Puffs ity of mcg/actuati 00:00: every 6 [place] as on inhaler 00 (six) Medical hours as Branch needed for Wheezing, Shortness of Breath, Bronchospa sm or Chest tightness. albuterol 2020-0 Yes [id number] 2{puff} Inhale 2 Univers 90 4-20 Puffs ity of mcg/actuati 00:00: every 6 [place] as on inhaler 00 (six) Medical hours as Branch needed for Wheezing, Shortness of Breath, Bronchospa sm or Chest tightness. albuterol 2020-0 Yes [id number] 2{puff} Inhale 2 Univers 90 4-20 Puffs ity of mcg/actuati 00:00: every 6 [place] as on inhaler 00 (six) Medical hours as Branch needed for Wheezing, Shortness of Breath, Bronchospa sm or Chest tightness. albuterol 2020-0 Yes [id number] 2{puff} Inhale 2 Univers 90 4-20 Puffs ity of mcg/actuati 00:00: every 6 [place] as on inhaler 00 (six) Medical hours as Branch needed for Wheezing, Shortness of Breath, Bronchospa sm or Chest tightness. albuterol 2020-0 Yes [id number] 2{puff} Inhale 2 Univers 90 4-20 Puffs ity of mcg/actuati 00:00: every 6 [place] as on inhaler 00 (six) Medical hours as Branch needed for Wheezing, Shortness of Breath, Bronchospa sm or Chest tightness. albuterol 2020-0 Yes [id number] 2{puff} Inhale 2 Univers 90 4-20 Puffs ity of mcg/actuati 00:00: every 6 [place] as on inhaler 00 (six) Medical hours as Branch needed for Wheezing, Shortness of Breath, Bronchospa sm or Chest tightness. albuterol 2020-0 Yes [id number] 2{puff} Inhale 2 Univers 90 4-20 Puffs ity of mcg/actuati 00:00: every 6 [place] as on inhaler 00 (six) Medical hours as Branch needed for Wheezing, Shortness of Breath, Bronchospa sm or Chest tightness. albuterol 2020-0 Yes [id number] 2{puff} Inhale 2 Univers 90 4-20 Puffs ity of mcg/actuati 00:00: every 6 [place] as on inhaler 00 (six) Medical hours as Branch needed for Wheezing, Shortness of Breath, Bronchospa sm or Chest tightness. albuterol 2020-0 Yes [id number] 2{puff} Inhale 2 Univers 90 4-20 Puffs ity of mcg/actuati 00:00: every 6 [place] as on inhaler 00 (six) Medical hours as Branch needed for Wheezing, Shortness of Breath, Bronchospa sm or Chest tightness. albuterol 2020-0 Yes [id number] 2{puff} Inhale 2 Univers 90 4-20 Puffs ity of mcg/actuati 00:00: every 6 [place] as on inhaler 00 (six) Medical hours as Branch needed for Wheezing, Shortness of Breath, Bronchospa sm or Chest tightness. albuterol 2020-0 Yes [id number] 2{puff} Inhale 2 Univers 90 4-20 Puffs ity of mcg/actuati 00:00: every 6 [place] as on inhaler 00 (six) Medical hours as Branch needed for Wheezing, Shortness of Breath, Bronchospa sm or Chest tightness. albuterol 0 Yes [id number] 2{puff} Inhale 2 Univers 90 4-20 Puffs ity of mcg/actuati 00:00: every 6 [place] as on inhaler 00 (six) Medical hours as Branch needed for Wheezing, Shortness of Breath, Bronchospa sm or Chest tightness. albuterol 0 2020- No [id number] 2{puff} Inhale 2 Univers 90 4-20 10-27 Puffs ity of mcg/actuati 00:00: 00:00 every 6 [place] on inhaler 00 :00 (six) Medical hours as Branch needed for Wheezing, Shortness of Breath, Bronchospa sm or Chest tightness. Immunizations Ordered Filled Immunization Date Status Comments [facility] e Immunization Name Name SARS-COV-2 COVID-19 2020-11-16 Completed Unive rsity of PFIZER VACCINE 00:00:00 [facility] Branch Influenza Virus 2020-05-22 Completed Universit y of Vaccine Quad .5 mL 00:00:00 [facility] 6+ MO Branch Influenza Virus 2020-05-22 Completed Universit y of Vaccine Quad .5 mL 00:00:00 [facility] 6+ MO Branch Influenza Virus 2020-05-22 Completed Universit y of Vaccine [place] .5 mL 00:00:00 [facility] 6+ MO Branch Influenza Virus 2020-05-22 Completed Universit y of Vaccine [place] .5 mL 00:00:00 [facility] 6+ MO Branch Influenza Virus 2020-05-22 Completed Universit y of Vaccine [place] .5 mL 00:00:[address] [facility] IM 6+ MO Branch Influenza Virus 2020-05-22 Completed Universit y of Vaccine [place] .5 mL 00:00:00 [facility] 6+ MO Branch Influenza Virus 2020-05-22 Completed Universit y of Vaccine [place] .5 mL 00:00:00 [facility] IM 6+ MO Branch Influenza Virus 2020-05-22 Completed Universit y of Vaccine Quad .5 mL 00:00:00 [facility] 6+ MO Branch Influenza Virus 2020-05-22 Completed Universit y of Vaccine Quad .5 mL 00:00:[address] [facility] IM 6+ MO Branch Influenza Virus 2020-05-22 Completed Universit y of Vaccine Quad .5 mL 00:00:00 [facility] IM 6+ MO Branch Influenza Virus 2020-05-22 Completed Universit y of Vaccine [place] .5 mL 00:00:00 [facility] IM 6+ MO Branch Influenza Virus 2020-05-22 Completed Universit y of Vaccine [place] .5 mL 00:00:00 [facility] IM 6+ MO Branch Influenza Virus 2020-05-22 Completed Universit y of Vaccine [place] .5 mL 00:00:00 [facility] IM 6+ MO Branch Influenza Virus 2020-05-22 Completed Universit y of Vaccine [place] .5 mL 00:00:00 [facility] IM 6+ MO Branch Influenza Virus 2020-05-22 Completed Universit y of Vaccine [place] .5 mL 00:00:00 [facility] IM 6+ MO Branch Influenza Virus 2020-05-22 Completed Universit y of Vaccine [place] .5 mL 00:00:00 [facility] IM 6+ MO Branch Influenza Virus 2020-05-22 Completed Universit y of Vaccine Quad .5 mL 00:00:00 [facility] IM 6+ MO Branch TDAP 2020-03-15 Completed University of 00:00:00 [facility] TDAP 2020-03-15 Completed University of 00:00:00 [facility] TDAP 2020-03-15 Completed University of 00:00:00 [facility] TDAP 2020-03-15 Completed University of 00:00:00 [facility] TDAP 2020-03-15 Completed University of 00:00:00 [facility] TDAP 2020-03-15 Completed University of 00:00:00 [facility] TDAP 2020-03-15 Completed University of 00:00:00 [facility] TDAP 2020-03-15 Completed University of 00:00:00 [facility] TDAP 2020-03-15 Completed University of 00:00:00 [facility] TDAP 2020-03-15 Completed University of 00:00:00 [facility] TDAP 2020-03-15 Completed University of 00:00:00 [facility] TDAP 2020-03-15 Completed University of 00:00:00 [facility] TDAP 2020-03-15 Completed University of 00:00:00 [facility] TDAP 2020-03-15 Completed University of 00:00:00 [facility] TDAP 2020-03-15 Completed University of 00:00:00 [facility] TDAP 2020-03-15 Completed University of 00:00:00 [facility] TDAP 2020-03-15 Completed University of 00:00:00 [facility] TDAP 2020-03-15 Completed University of 00:00:00 [facility] TDAP 2020-03-15 Completed University of 00:00:00 [facility] TDAP 2020-03-15 Completed University of 00:00:00 [facility] TDAP 2020-03-15 Completed University of 00:00:00 [facility] TDAP 2020-03-15 Completed University of 00:00:00 [facility] TDAP 2020-03-15 Completed University of 00:00:00 [facility] TDAP 2020-03-15 Completed University of 00:00:00 [facility] TDAP 2020-03-15 Completed University of 00:00:00 [facility] TDAP 2020-03-15 Completed University of 00:00:00 [facility] TDAP 2020-03-15 Completed University of 00:00:00 [facility] TDAP 2020-03-15 Completed University of 00:00:00 [facility] Vital Signs Vital Name Observation Time Observation Value Comments Source Systolic blood 2020-07-02 17:17:00 132 mm[Hg] Univer sity of pressure [facility] Diastolic blood 2020-07-02 17:17:00 88 mm[Hg] Unive rsity of pressure [facility] Heart rate 2020-07-02 17:17:00 57 /min [facility] Body temperature 2020-07-02 17:17:00 36.83 Steffanie [facility] Respiratory rate 2020-07-02 17:17:00 18 /min [facility] Body height 2020-07-02 17:17:00 167.6 cm [facility] Body weight 2020-07-02 17:17:00 111.585 kg [facility] BMI 2020-07-02 17:17:00 39.71 kg/m2 [facility] Systolic blood 2020-07-02 17:17:00 132 mm[Hg] Univer sity of pressure [facility] Diastolic blood 2020-07-02 17:17:00 88 mm[Hg] Unive rsity of pressure [facility] Heart rate 2020-07-02 17:17:00 57 /min [facility] Body temperature 2020-07-02 17:17:00 36.83 Steffanie [facility] Respiratory rate 2020-07-02 17:17:00 18 /min Univ ersity of [facility] Body height 2020-07-02 17:17:00 167.6 cm Universi ty of [facility] Body weight 2020-07-02 17:17:00 111.585 kg Universi ty [facility] BMI 2020-07-02 17:17:00 39.71 kg/m2 [facility]i ty [facility] Systolic blood 2020-06-11 20:35:00 108 mm[Hg] Univer sity of pressure [facility] Diastolic blood 2020-06-11 20:35:00 70 mm[Hg] Unive rsity of pressure [facility] Heart rate 2020-06-11 20:35:00 67 /min Universi ty of [facility] Body temperature 2020-06-11 20:35:00 36.72 Steffanie Univ ersity of [facility] Respiratory rate 2020-06-11 20:35:00 18 /min Univ ersity of [facility] Branch Body height 2020-06-11 20:35:00 167.6 cm Universi ty of [facility] Body weight 2020-06-11 20:35:00 111.676 kg Universi ty [facility] BMI 2020-06-11 20:35:00 39.74 kg/m2 Universi ty [facility] Systolic blood 2020-06-11 20:35:00 108 mm[Hg] Univer sity of pressure [facility] Diastolic blood 2020-06-11 20:35:00 70 mm[Hg] Unive rsity of pressure [facility] Heart rate 2020-06-11 20:35:00 67 /min Universi ty [facility] Body temperature 2020-06-11 20:35:00 36.72 Steffanie Univ ersity of [facility] Respiratory rate 2020-06-11 20:35:00 18 /min Univ ersity of [facility] Branch Body height 2020-06-11 20:35:00 167.6 cm Universi ty [facility] Body weight 2020-06-11 20:35:00 111.676 kg Universi ty [facility] BMI 2020-06-11 20:35:00 39.74 kg/m2 Universi ty [facility] Systolic blood 2020-06-04 22:30:00 121 mm[Hg] Univer sity of pressure [facility] Diastolic blood 2020-06-04 22:30:00 67 mm[Hg] Unive rsity of pressure [facility] Heart rate 2020-06-04 22:30:00 68 /min Universi ty of [facility] Body temperature 2020-06-04 22:30:00 37 Steffanie Univ ersity of [facility] Respiratory rate 2020-06-04 22:30:00 18 /min Univ ersity of [facility] Oxygen saturation in 2020-06-04 22:30:00 97 /min University of Arterial blood by [facility] Pulse oximetry Branch Body height 2020-06-03 11:00:00 167.6 cm Universi ty of [facility] Body weight 2020-06-03 11:00:00 117.391 kg Universi ty of [facility] BMI 2020-06-03 11:00:00 41.79 kg/m2 Universi ty [facility] Systolic blood 2020-06-04 22:30:00 121 mm[Hg] Univer sity of pressure [facility] Diastolic blood 2020-06-04 22:30:00 67 mm[Hg] Unive rsity of pressure [facility] Heart rate 2020-06-04 22:30:00 68 /min Universi ty [facility] Body temperature 2020-06-04 22:30:00 37 Steffanie Univ ersity of [facility] Respiratory rate 2020-06-04 22:30:00 18 /min Univ ersity of [facility] Oxygen saturation in 2020-06-04 22:30:00 97 /min University of Arterial blood by [facility] Pulse oximetry Branch Body height 2020-06-03 11:00:00 167.6 cm Universi ty [facility] Body weight 2020-06-03 11:00:00 117.391 kg Universi ty [facility] BMI 2020-06-03 11:00:00 41.79 kg/m2 Univers[facility] ty [facility] Systolic blood 2020-05-28 21:25:00 113 mm[Hg] Univer sity of pressure [facility] Diastolic blood 2020-05-28 21:25:00 75 mm[Hg] Unive rsity of pressure [facility] Heart rate 2020-05-28 21:25:00 73 /min Universi ty [facility] Body temperature 2020-05-28 21:25:00 36.89 Steffanie Univ ersity of [facility] Respiratory rate 2020-05-28 21:25:00 18 /min Univ ersity of [facility] Body height 2020-05-28 21:25:00 167.6 cm [facility] Body weight 2020-05-28 21:25:00 118.389 kg [facility] BMI 2020-05-28 21:25:00 42.13 kg/m2 [facility] Systolic blood 2020-05-28 21:25:00 113 mm[Hg] Univer sity of pressure [facility] Diastolic blood 2020-05-28 21:25:00 75 mm[Hg] Unive rsity of pressure [facility] Heart rate 2020-05-28 21:25:00 73 /min [facility]i ty [facility] Body temperature 2020-05-28 21:25:00 36.89 Steffanie Univ ersity of [facility] Respiratory rate 2020-05-28 21:25:00 18 /min Univ ersity of [facility] Body height 2020-05-28 21:25:00 167.6 cm [facility] Body weight 2020-05-28 21:25:00 118.389 kg [facility] BMI 2020-05-28 21:25:00 42.13 kg/m2 [facility] Systolic blood 2020-05-22 21:51:00 126 mm[Hg] Univer sity of pressure [facility] Diastolic blood 2020-05-22 21:51:00 85 mm[Hg] Unive rsity of pressure [facility] Heart rate 2020-05-22 21:51:00 77 /min Universi ty [facility] Body temperature 2020-05-22 21:51:00 36.89 Steffanie Univ ersity of [facility] Respiratory rate 2020-05-22 21:51:00 18 /min Univ ersity of [facility] Body height 2020-05-22 21:51:00 167.6 cm [facility] Body weight 2020-05-22 21:51:00 117.935 kg [facility] BMI 2020-05-22 21:51:00 41.97 kg/m2 [facility] Systolic blood 2020-05-06 21:31:00 127 mm[Hg] Univer sity of pressure [facility] Diastolic blood 2020-05-06 21:31:00 74 mm[Hg] Unive rsity of pressure [facility] Heart rate 2020-05-06 21:31:00 83 /min [facility]i ty [facility] Body temperature 2020-05-06 21:31:00 37 Steffanie Univ ersity of [facility] Respiratory rate 2020-05-06 21:31:00 18 /min Univ ersity of [facility] Body height 2020-05-06 21:31:00 167.6 cm [facility] Body weight 2020-05-06 21:31:00 115.214 kg [facility] BMI 2020-05-06 21:31:00 41.00 kg/m2 [facility] Systolic blood 2020-04-18 16:08:00 124 mm[Hg] Univer sity of pressure [facility] Diastolic blood 2020-04-18 16:08:00 73 mm[Hg] Unive rsity of pressure [facility] Heart rate 2020-04-18 16:08:00 82 /min [facility]i ty [facility] Body temperature 2020-04-18 16:08:00 36.83 Steffanie Univ ersity [facility] Respiratory rate 2020-04-18 16:08:00 18 /min Univ ersity of [facility] Body height 2020-04-18 16:08:00 167.6 cm [facility] Body weight 2020-04-18 16:08:00 114.034 kg [facility] BMI 2020-04-18 16:08:00 40.58 kg/m2 [facility] Systolic blood 2020-04-05 19:30:00 113 mm[Hg] Univer sity of pressure [facility] Diastolic blood 2020-04-05 19:30:00 72 mm[Hg] Unive rsity of pressure [facility] Heart rate 2020-04-05 19:30:00 80 /min [facility] ty [facility] Body temperature 2020-04-05 19:30:00 36.78 Steffanie Univ ersity of [facility] Respiratory rate 2020-04-05 19:30:00 18 /min Univ ersity [facility] Body height 2020-04-05 19:30:00 167.6 cm [facility] Body weight 2020-04-05 19:30:00 112.583 kg [facility] BMI 2020-04-05 19:30:00 40.06 kg/m2 [facility] Body weight 2020-03-15 14:13:00 109.77 kg [facility] BMI 2020-03-15 14:13:00 39.06 kg/m2 [facility] Systolic blood 2020-03-15 14:13:00 117 mm[Hg] Univer sity of pressure [facility] Diastolic blood 2020-03-15 14:13:00 69 mm[Hg] [facility] Heart rate 2020-03-15 14:13:00 78 /min [facility] Body temperature 2020-03-15 14:13:00 36.89 Steffanie [facility] 2020-03-15 14:13:00 18 /min [facility] Body height 2020-03-15 14:13:00 167.6 cm [facility] Procedures Procedure Date / Time Performing Clinician Source Performed CONSENT FOR ORAL 2020-07-02 06:01:00 Doctor Unassigned, [facility] CONTRACEPTIVES [place] [facility] POCT TEST 2020-07-02 00:00:00 Ene Ricci [facility] DME/SUPPLY JUSTIFICATION 2020-06-14 06:01:00 [facility] WITH DIFF 2020-06-04 09:08:00 Kindra Griggs [facility] VENOUS CORD GAS 2020-06-03 13:42:00 Kindra Griggs [facility] SECTION 2020-06-03 12:43:00 Kindra Griggs [facility] CBC WITH DIFF 2020-06-03 11:48:00 Kindra Griggs [facility] HEPATITIS B SURFACE 2020-06-03 11:48:00 Kindra Griggs [facility] ANTIGEN [facility] ADC OR RUPINDER ONLY - RPR 2020-06-03 11:48:00 [facility]-AB WITH REFLEX 2020-06-03 11:48:00 [facility] HB ABO GROUPING 2020-06-03 11:44:00 Kindra Griggs [place] [facility] RHO (D) IMMUNE GLOBULIN 2020-06-03 11:44:00 Kindra Griggs [facility] HOSPITAL ADMISSION 2020-06-03 05:01:00 Doctor Lalo, [facility] [place] [facility] [place] CONSENT/REFUSAL FOR 2020-05-31 16:00:16 Doctor Lalo, [facility] DIAGNOSIS AND TREATMENT [place] [facility] ASSIGNMENT OF BENEFITS 2020-05-31 15:59:58 Doctor Unassigned, [facility] [place] [facility] [place] POCT URINALYSIS W/O 2020-05-28 00:00:00 [facility] SPECIFIC GRAVITY [facility] >14 WEEKS US 2020-05-22 22:26:[address] [facility] FLU VACC ([id number]), 6+ 2020-05-22 21:52:59 Kindra Griggs [facility] MONTHS, IM, QUAD Medical Branch DSU PRE-OP 2020-05-22 05:01:00 Doctor Lalo, [facility] [place] [facility] [place] POCT URINALYSIS W/O 2020-05-06 00:00:00 Kindra Griggs [facility] SPECIFIC GRAVITY [facility] POCT URINALYSIS W/O 2020-04-18 16:10:00 Ene Ricci [facility] SPECIFIC GRAVITY [facility] POCT URINALYSIS W/O 2020-04-05 00:00:00 [facility] SPECIFIC GRAVITY [facility] Branch GLUCOSE 1 HOUR POST 2020-03-15 16:38:00 [facility]gs [facility] PRANDIAL [facility] CBC WITH DIFF 2020-03-15 16:38:00 Kindra Griggs [place] [facility] TDAP VACCINE, >11 YRS, IM 2020-03-15 14:22:25 Ene Ricci [facility] POCT URINALYSIS W/O 2020-03-15 00:00:00 Ene Ricci [facility] SPECIFIC GRAVITY [facility] AGREEMENTS AUTHORIZATIONS 2020-01-25 05:01:00 [facility] AND IRREVOCABLE [place] [facility] ASSIGNMENTS (FORM 2001) Encounters Start End Encounter Admission Attending Care Care Encounter Source Date/Time Date/Time Type Type Clinicians Facility Department ID 2021-01-14 2021-01-14 Outpatient Maximo RICCI [facility] [id number] Univers 14:30:00 14:30:00 ENE [id number] [facility] 2021-01-14 2021-01-14 Outpatient Maximo RICCI [facility] [id number] Univers 14:30:00 14:30:00 ENE [facility] 2020-12-30 2020-12-30 Outpatient Maximo RICCI [facility] [id number] Univers 09:00:00 09:00:00 ENE [id number] [facility] 2020-12-30 2020-12-30 [facility] [id number] Univers 09:00:00 09:00:00 ENE [facility] 2020-12-07 2020-12-07 [facility] [id number] Univers 13:15:00 13:15:00 KAYLEEN [facility] 2020-11-25 2020-11-25 Kindra Wild [facility] [id number] Univers 00:00:00 00:00:00 Cam Erin [id number] i [id number] [phone] [place] [address] [place] [address] 2020-11-16 2020-11-16 Outpatient [facility] [id number] Univers 13:20:00 [facility] 2020-07-02 [facility] [id number] Univers 11:06:01 11:21:01 Ene Khan [id number] ity of [id number] [phone] [place] dical [place]al [address] [place] [address] 2020-07-02 2020-07-02 Routine Keiry [facility] 1.2.687.936 [id number] 11:06:01 11:21:01 Ene Khan 350.1.13.10 Visit [place] 4.2.7.2.686 Professio [phone] [address] 2020-07-02 2020-07-02 Outpatient R KEIRY [facility] [id number] 2A-20 Univers 11:00:00 11:00:00 ENE [id number] [facility] 2020-07-02 2020-07-02 Outpatient R KEIRY [facility] [id number] Univers 11:00:00 11:00:00 ENE [facility] 2020-07-02 2020-07-02 Orders Doctor RAY 1.2.840.114 [id number] Univers 00:00:00 00:00:00 Only Unassigned, ALTON 350.1.13.10 ity of [place] [facility] 4.2.7.2.686 Dima as [phone] [address] 2020-07-02 2020-07-02 Orders Doctor RAY 1.2.840.114 [id number] 00:00:00 00:00:00 Only Unassigned, ALTON 350.1.13.10 [place] [facility] 4.2.7.2.686 [phone] [facility] 2020-06-14 2020-06-14 Telephone Kindra Griggs [facility] 1.2.840.114 [id number] Univers 00:00:00 00:00:00 Betzy Khan 350.1.13.10 i ty of [place] [phone] [place] dical [address] 2020-06-14 2020-06-14 Orders Doctor RAY 1.2.840.114 [id number] Univers 00:00:00 00:00:00 Only Unassigned, ALTON 350.1.13.10 ity of [place] [facility] 4.2.7.2.686 Dima as [phone] [address] 2020-06-14 2020-06-14 Telephone Kindra Griggs [facility] 1.2.840.114 [id number] 00:00:00 00:00:00 [place] 350.1.13.10 [place] 4.2.7.2.686 Professio [phone] [address] 2020-06-14 2020-06-14 Orders Doctor FLOR 1.2.840.114 [id number] 00:00:00 00:00:00 Only Unassigned, ALTON 350.1.13.10 [place] [facility] [id number] [facility] 2020-06-11 2020-06-11 Nurse Nurse, [facility] 1.2.840.114 [id number] [facility] 14:14:54 14:37:51 Visit Kindra Griggston 350.1.13.10 ity [facility] [place] [phone] [place] dical [address] 2020-06-11 2020-06-11 Nurse Nurse, [facility] 1.2.840.114 [id number] 14:14:54 14:37:51 Visit [facility] 350.1.13.10 [facility] 4.2.7.2.686 Professio [phone] [address] 2020-06-11 2020-06-11 Outpatient R [facility] [id number] -[id number] Univers 14:00:00 14:00:00 ity [facility] 2020-06-11 2020-06-11 Outpatient R [facility] [id number] Univers 14:00:00 14:00:00 ity [facility] 2020-06-03 2020-06-04 [facility] 1.2.840.114 [id number] Univers 05:33:00 18:30:00 Encounter Cam [place] 350.1.13.10 ity [facility] 4.2.7.2.[place] [phone] [address] 2020-06-03 2020-06-04 [facility] Kindra Griggs [facility] 1.2.840.114 [id number] 05:33:00 18:30:00 Encounter Cam [place] 350.1.13.10 [place] 4.2.7.2.686 [place] [phone] [facility] 2020-06-03 2020-06-03 Outpatient P KINDRA GRIGGS [facility] CARLOS [id number] Univers 05:33:00 05:33:00 ity of [facility] 2020-06-03 2020-06-03 Orders Doctor FLOR 1.2.840.114 [id number] Univers 00:00:00 00:00:00 Only Unassigned, ALTON 350.1.13.10 ity of [place] [facility] 4.2.7.2.686 Dima as [phone] [facility] [address] [place] 2020-06-03 2020-06-03 Orders Doctor FLOR 1.2.840.114 [id number] 00:00:00 00:00:00 Only Unassigned, ALTON 350.1.13.10 [place] [facility] [phone] [facility] 2020-05-31 2020-05-31 Laboratory Only, Adc Test [facility] 1.2.840. 114 [id number] Univers 10:58:53 11:13:53 Only Kindra Griggs Betzy [place] 350.1.13.10 ity of [place].2.[place].2.[place] [phone] [address] 2020-05-31 2020-05-31 Outpatient R [facility] [id number] -[id number] Univers 10:15:00 10:15:00 [id number] ity of [facility] 2020-05-31 2020-05-31 Outpatient R [facility] [id number] Univers 10:15:00 10:15:00 ity of [facility] 2020-05-29 2020-05-29 Telephone Kindra Griggs [facility] 1.2.840.114 [id number] Univers 00:00:00 00:00:00 [place] 350.1.13.10 i ty of [place].2.[place] [phone] [place] dical nal [address] [facility] 2020-05-28 2020-05-28 Routine Krista Griggsen [facility] 1.2.120.957 [id number] Univers 16:00:11 16:49:53 [place] 350.1.13.10 ity of Visit [place].2.[place] [phone] N[place] dical nal [address] [facility] 2020-05-28 2020-05-28 Routine Kindra Griggs [facility] 1.2.443.833 [id number] 16:00:11 16:49:53 [place] 350.1.13.10 Visit [place] 4.2.7.2.686 Professio [phone] [address] 2020-05-28 2020-05-28 Public Relations Officer 2, Adc Lab [facility] 1.2.840.114 [id number] Univers 15:53:23 16:08:23 Visit Kindra Griggs [place] 350.1.13.10 ity of [place].2.[place] [phone] Nj dicsabine archer [address] [facility] 2020-05-28 2020-05-28 Outpatient R KINDRA GIRGGS [facility] [id number] 2A-20 Univers 16:00:00 16:00:00 ity [facility] 2020-05-28 2020-05-28 Outpatient R ANSON KINDRA [facility] [id number] Univers 16:00:00 16:00:00 ity [facility] 2020-05-23 2020-05-23 Prep For Kindra Griggs [facility] 1.2.840.114 [id number] Univers 00:00:00 00:00:00 Surgery [place] 350.1.13.10 i ty of [place].2.[place] [phone] Nj dical [address] 2020-05-22 2020-05-22 Routine Kindra rGiggs [facility] 1.2.434.857 [id number] Univers 16:09:56 17:21:44 [place] 350.1.13.10 ity of Visit [place]2.7.2.[place] [phone] Nj dic[address] 2020-05-22 2020-05-22 Outpatient R KINDRA GRIGGS [facility] [id number] 2A-20 Univers 16:15:00 16:15:00 [id number] ity [facility] 2020-05-22 2020-05-22 Outpatient R ANSON [facility] [id number] Univers 16:15:00 16:15:00 ity [facility] 2020-05-20 2020-05-20 Outpatient R KEIRY [facility] [id number] 2A-20 Univers 11:15:00 11:15:00 ENE [id number] ity [facility] 2020-05-20 2020-05-20 Outpatient R KEIRY [facility] [id number] Univers 11:15:00 11:15:00 ENE ity [facility] 2020-05-20 2020-05-20 Public Relations Officer 2, Adc Lab [facility] 1.2.840.114 [id number] Univers 10:31:01 10:46:01 Visit BurkevinnieyessyEne Erin 350.1.13.10 ity of [place].7.2.[place] [phone] [facility] [address] [facility] 2020-05-06 2020-05-20 Routine Anson [facility] 1.2.274.811 [id number] Univers 15:51:49 10:35:13 Betzy Khan 350.1.13.10 ity of Visit [place].2.[place] [phone] [facility] [address] [facility] 2020-05-06 2020-05-06 Outpatient R KINDRA GRIGGS [facility] [id number] 2A-20 Univers 16:00:00 16:00:00 [id number] [facility] 2020-05-06 2020-05-06 Outpatient R KINDRA GRIGGS [facility] [id number] Univers 16:00:00 16:00:00 ity [facility] 2020-05-02 2020-05-02 Outpatient R ANSON KINDRA [facility] [id number] 2A-20 Univers 09:00:00 09:00:00 [id number] ity [facility] 2020-05-02 2020-05-02 Outpatient R ANSON KINDRA [facility] [id number] Univers 09:00:00 09:00:00 ity [facility] 2020-04-19 2020-04-19 Outpatient R ANSON KINDRA [facility] [id number] 2A-20 Univers 16:00:00 16:00:00 [id number] [facility] 2020-04-19 2020-04-19 Outpatient R KINDRA GRIGGS [facility] [id number] Univers 16:00:00 16:00:00 ity [facility] 2020-04-18 2020-04-18 Routine Keiry [facility] 1.2.068.947 [id number] Univers 11:00:18 11:15:18 Ene Khan 350.1.13.10 ity of [place].2.[place] [phone] [address] 2020-04-18 2020-04-18 Outpatient R KEIRY [facility] [id number] 2A-20 Univers 10:45:00 10:45:00 ENE ity [facility] 2020-04-18 2020-04-18 Outpatient R KEIRY [facility] [id number] Univers 10:45:00 10:45:00 [facility] 2020-04-18 2020-04-18 Letter Anson [facility] 1.2.369.021 [id number] Univers 00:00:00 00:00:00 (Out) [place] 350.1.13.10 i ty of [place].2.[place] [phone] [address] 2020-04-18 2020-04-18 [facility] 1.2.770.085 [id number] Univers 00:00:00 00:00:00 (Out) [place] 350.1.13.10 i ty of [place].2.[place] [phone] [address] 2020-04-05 2020-04-05 Outpatient ANSON KINDRA [facility] [id number] 2A-20 Univers 16:00:00 16:00:00 [id number] ity [facility] 2020-04-05 2020-04-05 Outpatient R ANSON [facility] [id number] Univers 16:00:00 16:00:00 ity [facility] 2020-04-05 2020-04-05 Routine Anson [facility] 1.2.672.944 [id number] Univers 14:13:39 14:45:49 Betzy Barreraton 350.1.13.10 ity of [place].2.[place] [phone] [address] 2020-04-05 2020-04-05 Outpatient R KINDRA GRIGGS [facility] [id number] Univers 14:15:00 14:15:00 ity of [facility] 2020-03-29 2020-03-29 Outpatient R ANSON [facility] [id number] 2A-20 Univers 08:15:00 08:15:00 [id number] ity of [facility] 2020-03-29 2020-03-29 Outpatient R ANSON [facility] [id number] Univers 08:15:00 08:15:00 ity of [facility] 2020-03-26 2020-03-26 Outpatient ANSON [facility] [id number] 2A-20 Univers 13:00:00 13:00:00 [id number] ity of [facility] 2020-03-26 2020-03-26 Outpatient R ANSON [facility] [id number] Univers 13:00:00 13:00:00 ity of [facility] 2020-03-26 2020-03-26 Telemedici Anson [facility] 1.2.840.114 [id number] [facility] 09:24:04 09:39:04 ne Visit Betzy Erin 350.1.13.10 ity of [place].2.[place] [phone] Nj dic[address] 2020-03-15 2020-03-15 Public Relations Officer Ultrasound, Adc [facility] 1.2 .840.114 [id number] Univers 15:37:33 16:07:33 Visit Shukriyessy Eneyissel Khan 350.1.13.10 ity of [place].7.2.[place] [phone] Nj dical nal [address] [place] [address] 2020-03-15 2020-03-15 Public Relations Officer 2, Adc Lab [place] 1.2.840.114 [id number] Univers 10:34:25 10:49:25 Visit Kindra Griggs [place] 350.1.13.10 ity of [place] 4[place].7.2.[place] [phone] [facility] [address] [facility] 2020-03-15 2020-03-15 Routine Keiry [facility] 1.2.793.816 [id number] Univers 08:54:47 09:40:37 Ene Khan 350.1.13.10 ity of [place].2.[place] [phone] [address] 2020-03-15 2020-03-15 Outpatient R KEIRY [facility] [id number] 2A-20 Univers 08:45:00 08:45:00 ENE ity [facility] 2020-03-15 2020-03-15 Outpatient R KEIRY [facility] [id number] Univers 08:45:00 08:45:00 ENE ity [facility] 2020-02-14 2020-02-14 Outpatient R ANSON KINDRA [facility] [id number] 2A-20 Univers 11:30:00 11:30:00 [id number] ity of [facility] 2020-02-14 2020-02-14 Outpatient R ANSON KINDRA [facility] [id number] Univers 11:30:00 11:30:00 ity of [facility] 2020-02-14 2020-02-14 Telemedici Anson [facility] 1.2.840.114 [id number] Univers 08:14:55 08:29:55 ne Visit Betzy Khan 350.1.13.10 ity of [place].2.[place] [phone] [address] 2020-02-05 2020-02-05 Outpatient R KINDRA GRIGGS [facility] [id number] 2A-20 Univers 09:45:00 09:45:00 [id number] ity of [facility] 2020-02-05 2020-02-05 Outpatient R ANSON KINDRA [facility] [id number] Univers 09:45:00 09:45:00 ity of [facility] 2020-02-04 2020-02-04 Laboratory Lab, Adc Fam Pob I [facility] 1.2. 840.114 [id number] Univers 09:09:34 09:29:34 Only Estephania Daniel 350.1.13.10 ity of [place] 4.2.7.2.686 [place]ima as Professio [phone] Nj dical nal [address] [place] [facility] 2020-02-04 2020-02-04 Outpatient R [facility] [id number] -[id number] Univers 09:00:00 09:00:00 [id number] ity of [facility] 2020-02-04 2020-02-04 Outpatient R [facility] [id number] Univers 09:00:00 09:00:00 ity of [facility] 2020-02-01 2020-02-01 Telephone AnsonKristaen [facility] 1.2.840.114 [id number] Univers 00:00:00 00:00:00 Betzy Khan 350.1.13.10 i ty of [place]2.[place] [phone] Nj dical nal [address] [facility] 2020-01-25 2020-01-25 Public Relations Officer 2, Adc Lab [facility] 1.2.840.114 [id number] Univers 13:28:32 13:43:32 Visit Kindra Griggs 350.1.13.10 ity of [place]7.2.[place] [phone] N[place] dical nal [address] [facility] 2020-01-25 2020-01-25 Outpatient R [facility] [id number] -[id number] Univers 13:30:00 13:30:00 [id number] ity of [facility] 2020-01-25 2020-01-25 Outpatient R KINDRA GRIGGS [facility] [id number] Univers 13:30:00 13:30:00 ity of [facility] 2020-01-25 2020-01-25 Orders Doctor FLOR 1.2.840.114 [id number] Univers 00:00:00 00:00:00 Only Unassigned, ALTON 350.1.13.10 [facility] 4.2.7.2.686 Dima as [phone] [address] 2020-01-23 2020-01-23 Public Relations Officer Curtis, Octavio [facility] 1.2 .840.114 [id number] Univers 13:49:51 15:04:51 Visit Ashok Yehstephanie Moreno 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 2020-01-23 2020-01-23 Outpatient P [facility] [id number] Univers 14:00:00 14:00:[facility] 2020-01-05 2020-01-05 [facility] 1.2.840.114 [id number] Univers 07:55:00 09:38:04 ne Visit Eneyissel Khan 350.1.13.10 ity of [place]2.[place] [phone] Nj dical nal [address] [place] [address] 2020-01-05 2020-01-05 Outpatient KEIRY [facility] [id number] 2A-20 Univers 09:15:00 09:15:00 ENE [id number] [facility] 2020-01-05 2020-01-05 Outpatient R KEIRY [facility] [id number] Univers 09:15:00 09:15:00 ENE [facility] 2020-01-05 2020-01-05 Case [facility] 1.2.884.301 [id number] Univers 00:00:00 00:00:00 Management Ene Khan 350.1.13.10 ity of [place].2.[place] [phone] Nj dical nal [address] [place] [address] 2020-01-02 2020-01-02 Outpatient R KEIRY [facility] [id number] 2A-20 Univers 11:15:00 11:15:00 [facility]NE [id number] [facility] 2020-01-02 2020-01-02 Outpatient R KEIRY [facility] [id number] Univers 11:15:00 11:15:00 ENE [facility] 2019-12-14 2019-12-14 Kindra Casiano [facility] 1.2.840.114 [id number] Univers 00:00:00 00:00:00 Cam [place] 350.1.13.10 i ty of [place].2.[place] [phone] Nj rima[address] 2019-12-14 2019-12-14 Telephone Kindra Griggs [facility] 1.2.840.114 [id number] Univers 00:00:00 00:00:00 Cam [place] 350.1.13.10 i ty of [place].2.[place] [phone] [address] 2019-12-11 2019-12-11 Outpatient R [facility] [id number] Univers 10:00:00 10:00:00 [facility] 2019-12-11 2019-12-11 Telephone Kindra Griggs [facility] 1.2.840.114 [id number] Univers 00:00:00 00:00:00 Cam [place] 350.1.13.10 i ty of [place].2.[place] [phone] Nj rima[address] 2019-12-07 2019-12-07 Telephone Kindra Griggs [facility] 1.2.840.114 [id number] Univers 00:00:00 00:00:00 Cam [place] 350.1.13.10 i ty of [place] 4[place].2.[place] [phone] [address] 2019-12-04 2019-12-04 Outpatient R KINDRA GRIGGS [facility] [id number] Univers 09:30:00 09:30:00 [facility] Results Test Description Test Time Test Comments Results Result Comments Source POCT TEST 2020-07-02 17:20:00 Test Item Value Reference Range Interpretation Comme nts POCT PREG (test code = 1605) Negative On board controls acceptable with C Line (test code = 3574) Yes POCT PREG LOT # (test code = 3575) POCT PREG TEST DATE (test code = 3576) Lab Interpretation (test code = 38374-0) [facility] [id number] 10:06:00 Test Item Value Reference Range Interpretation Comments WBC (test code = See_Comment [Automated 6690-2) message] The sy stem which generated this result transmitted reference range : 4.30 - 11.10 10*3/?L. The reference range was not used to interpret this result as normal/abnormal . RBC (test code = See_Comment L [Automated 789-8) message] The sy stem which generated this result transmitted reference range : 3.93 - 5.25 10*6/?L. The reference range was not used to interpret this result as normal/abnormal . HGB (test code = 9.6 g/dL 11.6-15 L 718-7) HCT (test code = 27.9 % 35.7-45.2 L 4544-3) MCV (test code = 87.7 fL 80.6-95.5 787-2) MCH (test code = 30.2 pg 25.9-32.8 785-6) MCHC (test code = 34.4 g/dL 31.6-35.1 786-4) RDW-SD (test code = 40.2 fL 39-49.9 00467-3) RDW-CV (test code = 12.6 % 12-15.5 788-0) PLT (test code = See_Comment [Automated 777-3) message] The sy stem which generated this result transmitted reference range : 166 - 358 10*3/ ?L. The reference r arlin was not used to interpret this result as normal/abnormal . MPV (test code = 10.4 fL 9.5-12.9 49522-1) NRBC/100 WBC (test See_Comment [Automat ed code = 6414140786) message] The system which generated this result transmitted reference range : 0.0 - 10.0 /100 WBCs. The refer ence range was not u sed to interpret th is result as normal/abnormal . NRBC x10^3 (test code <0.01 See_Comment [Auto mated = 7488347733) message] The s ystem which generated this result transmitted reference range : 10*3/?L. The reference range was not used to interpret this result as normal/abnormal . GRAN MAT (NEUT) % 67.7 % (test code = 770-8) IMM GRAN % (test code 0.20 % = 7019428247) LYMPH % (test code = 26.2 % 736-9) MONO % (test code = 4.6 % 5905-5) EOS % (test code = 1.1 % 713-8) BASO % (test code = 0.2 % 706-2) GRAN MAT x10^3(ANC) 5.41 10*3/uL 1.88-7.09 (test code = 9316034722) IMM GRAN x10^3 (test <0.03 0-0.06 code = 4522254396) LYMPH x10^3 (test code 2.10 10*3/uL 1.32-3.29 = 731-0) MONO x10^3 (test code 0.37 10*3/uL 0.33-0.92 = 742-7) EOS x10^3 (test code = 0.09 10*3/uL 0.03-0.39 711-2) BASO x10^3 (test code <0.03 0.01-0.07 = 704-7) Lab Interpretation Abnormal (test code = 34181-3) [facility] OR RUPINDER ONLY - [id number] 06:12:00 Test Item Value Reference Range Interpretation Comments RPR (Qualitative) (test code = Nonreactive Nonreactive 30618-0) Lab Interpretation (test code = Normal 81837-4) [facility]) IMMUNE [id number] 17:33:53 Test Item Value Reference Range Interpretation Comments RHIG CANDIDATE? No- see comment Patient i s not a (test code = candidate for R hIg- 5055) Patient is Rh Positive.Perfor med at [facility] Laboratory Services - [facility] Blood [address] [place] [phone] Free: [phone] A No. [id number] [facility] Hospital[facility]ATITIS B SURFACE [id number] 15:45:00 Test Item Value Reference Range Interpretation Comments HBsAg Semi-Quantitative (test code = Negative Negative 5195-3) [facility]2 AG-AB WITH [id number] 14:03:00 Test Item Value Reference Range Interpretation Comments HIV Negative Negative Semi-quantitative (test code = 42210-8) JUAN FRANCISCO (test code = Non-reactive for HIV-1 JUAN FRANCISCO) antigen and HIV-1/HIV-2 antibodies. ?No laboratory evidence of HIV infection. ?Repeat in 2-4 weeks if acute HIV infection is suspected. [facility] [id number] 13:53:00 Test Item Value Reference Range Interpretation Comments VENOUS BASE EXCESS, mEq/L CORD (test code = 0318826122) VENOUS PH, CORD (test 7.25-7.45 code = 5118888713) VENOUS PC02, CORD See_Comment [Automate d message] The (test code = system which ge nerated 7003672482) this result tra nsmitted reference range : 27 - 49 mmHg. The refer ence range was not used to interpret this result as normal/abnormal . VENOUS PO2, CORD (test See_Comment [Aut omated message] The code = 8244113248) system [facility] generated this result tra nsmitted reference range : 17 - 41 mmHg. The refer ence range was not used to interpret this result as normal/abnormal . VENOUS BICARBONATE, See_Comment [Automa slime message] The CORD (test code = system [facility] ch generated 4617666811) this result tra nsmitted reference range : 12 - 29 mEq/L. The refe rence range was not used to interpret this result as normal/abnormal . [facility] Cord [id number] 13:50:00 Test Item Value Reference Range Interpretation Comments BASE EXCESS, CORD mEq/L (test code = 3864908538) AC PH, CORD (BEAKER) 7.18-7.38 (test code = 3634325281) PC02, CORD (test code See_Comment [Auto mated message] The = 0894033239) system which g enerated this result transmit slime reference range : 32 - 66 mmHg. The refer ence range was not used to interpret this result as normal/abnormal . PO2, CORD (test code See_Comment [Autom ated message] The = 0137362147) system which g enerated this result transmit slime reference range : 10 - 30 mmHg. The refer ence range was not used to interpret this result as normal/abnormal . BICARBONATE, CORD See_Comment [Automate d message] The (test code = system which ge nerated this [id number]) result transmit slime reference range : 17 - 27 mEq/L. The refe rence range was not used to interpret this result as normal/abnormal . [facility]CE [id number] 13:13:48 Test Item Value Reference Range Interpretation Comments ABO & RH (test code A Positive Performe d at [facility] = 20) Laboratory Serv [facility] [address] [place], [place] [address]Toll Free: [phone] A No. [id number] IAT (test code = Negative Performed a t [facility] 1185) Laboratory Serv [facility] [address] [place], [place] [id number] Free: [phone] A No. [id number] [facility] WITH [id number] 12:08:00 Test Item Value Reference Range Interpretation Comments WBC (test code = See_Comment [Automated 1990-2) message] The sy stem which generated this result transmitted reference range : 4.30 - 11.10 10*3/?L. The reference range was not used to interpret this result as normal/abnormal . RBC (test code = See_Comment L [Automated 369-8) message] The sy stem which generated this result transmitted reference range : 3.93 - 5.25 10*6/?L. The reference range was not used to interpret this result as normal/abnormal . HGB (test code = 11.1 g/dL 11.6-15 L 718-7) HCT (test code = 33.3 % 35.7-45.2 L 4544-3) MCV (test code = 87.4 fL 80.6-95.5 787-2) MCH (test code = 29.1 pg 25.9-32.8 785-6) MCHC (test code = 33.3 g/dL 31.6-35.1 786-4) RDW-SD (test code = 39.5 fL 39-49.9 92805-9) RDW-CV (test code = 12.6 % 12-15.5 788-0) PLT (test code = See_Comment [Automated 777-3) message] The sy stem which generated this result transmitted reference range : 166 - 358 10*3/ ?L. The reference r arlin was not used to interpret this result as normal/abnormal . MPV (test code = 10.2 fL 9.5-12.9 19478-2) NRBC/100 WBC (test See_Comment [Automat ed code = 5873064314) message] The system which generated this result transmitted reference range : 0.0 - 10.0 /100 WBCs. The refer ence range was not u sed to interpret th is result as normal/abnormal . NRBC x10^3 (test code <0.01 See_Comment [Auto mated = [id number]) message] The s ystem which generated this result transmitted reference range : 10*3/?L. The reference range was not used to interpret this result as normal/abnormal . GRAN MAT (NEUT) % 61.3 % (test code = 770-8) IMM GRAN % (test code 0.30 % = 9697066583) LYMPH % (test code = 31.8 % 736-9) MONO % (test code = 3.6 % 5905-5) EOS % (test code = 2.4 % 713-8) BASO % (test code = 0.6 % 706-2) GRAN MAT x10^3(ANC) 4.04 10*3/uL 1.88-7.09 (test code = 0855853613) IMM GRAN x10^3 (test <0.03 0-0.06 code = 3353015790) LYMPH x10^3 (test code 2.10 10*3/uL 1.32-3.29 = 731-0) MONO x10^3 (test code 0.24 10*3/uL 0.33-0.92 L = 742-7) EOS x10^3 (test code = 0.16 10*3/uL 0.03-0.39 711-2) BASO x10^3 (test code 0.04 10*3/uL 0.01-0.07 = 704-7) Lab Interpretation Abnormal (test code = 25589-2) General acute hospital URINALYSIS W/O SPECIFIC [id number] 21:31:00 Test Item Value Reference Range Interpretation Comments POCT PH U (test code = 3254) N/A 5-8 POCT U LEUK EST (test code = N/A Negative - Negative 3263) POCT U NIT (test code = 3262) N/A Negative - Negative POCT U PROT (test code = 3259) Negative Negative - Negative POCT U GLU (test code = 3256) Negative Negative - Negative POCT U KETONE (test code = 3258) N/A Negative - Negative POCT U BLD (test code = 3257) N/A Negative - Negative [facility] [id number] 21:31:00 Test Item Value Reference Range Interpretation Comments POCT PH U (test code = 3254) N/A 5-8 POCT U LEUK EST (test code = N/A Negative - Negative 3263) POCT U NIT (test code = 3262) N/A Negative - Negative POCT U PROT (test code = 3259) Negative Negative - Negative POCT U GLU (test code = 3256) Negative Negative - Negative POCT U KETONE (test code = 3258) N/A Negative - Negative POCT U BLD (test code = 3257) N/A Negative - Negative [facility] [id number] 21:31:00 Test Item Value Reference Range Interpretation Comments POCT PH U (test code = 3254) N/A 5-8 POCT U LEUK EST (test code = N/A Negative - Negative 3263) POCT U NIT (test code = 3262) N/A Negative - Negative POCT U PROT (test code = 3259) Negative Negative - Negative POCT U GLU (test code = 3256) Negative Negative - Negative POCT U KETONE (test code = 3258) N/A Negative - Negative POCT U BLD (test code = 3257) N/A Negative - Negative [facility]>14 WEEKS US [id number] 22:27:09Limited USG for presentation: ?Cephalic Kindra Griggs MD ?05/22/2020 ?5:27 [facility] 2020-05-22 22:27:09Limited USG for presentation: ?Cephalic Kindra Griggs MD ?05/22/2020 ?5:[facility]CIFIC [id number] 21:32:00 Test Item Value Reference Range Interpretation Comments POCT PH U (test code = 3254) n/a 5-8 POCT U LEUK EST (test code = 3263) n/a Negative - Negative POCT U NIT (test code = 3262) n/a Negative - Negative POCT U PROT (test code = 3259) neg Negative - Negative POCT U GLU (test code = 3256) neg Negative - Negative POCT U KETONE (test code = 3258) n/a Negative - Negative POCT U BLD (test code = 3257) n/a Negative - Negative General acute hospital URINALYSIS W/O SPECIFIC [id number] 21:32:00 Test Item Value Reference Range Interpretation Comments POCT PH U (test code = 3254) n/a 5-8 POCT U LEUK EST (test code = 3263) n/a Negative - Negative POCT U NIT (test code = 3262) n/a Negative - Negative POCT U PROT (test code = 3259) neg Negative - Negative POCT U GLU (test code = 3256) neg Negative - Negative POCT U KETONE (test code = 3258) n/a Negative - Negative POCT U BLD (test code = 3257) n/a Negative - Negative General acute hospital URINALYSIS W/O SPECIFIC [id number] 16:10:00 Test Item Value Reference Range Interpretation Comments POCT PH U (test code = 3254) n/a 5-8 POCT U LEUK EST (test code = 3263) n/a Negative - Negative POCT U NIT (test code = 3262) n/a Negative - Negative POCT U PROT (test code = 3259) neg Negative - Negative POCT U GLU (test code = 3256) neg Negative - Negative POCT U KETONE (test code = 3258) n/a Negative - Negative POCT U BLD (test code = 3257) n/a Negative - Negative [facility] SPECIFIC [id number] 19:32:00 Test Item Value Reference Range Interpretation Comments POCT PH U (test code = 3254) n/a 5-8 POCT U LEUK EST (test code = 3263) n/a Negative - Negative POCT U NIT (test code = 3262) n/a Negative - Negative POCT U PROT (test code = 3259) neg Negative - Negative POCT U GLU (test code = 3256) neg Negative - Negative POCT U KETONE (test code = 3258) n/a Negative - Negative POCT U BLD (test code = 3257) n/a Negative - Negative Lab Interpretation (test code = Normal 65144-9) [facility] [id number] 18:01:00 Test Item Value Reference Range Interpretation Comments GLUC 1 HR (test code = 8751082767) 109 mg/dL 120-170 L Lab Interpretation (test code = Abnormal 06005-5) [facility] with [id number] 17:48:00 Test Item Value Reference Range Interpretation Comments WBC (test code = See_Comment [Automated 6690-2) message] The sy stem which generated this result transmitted reference range : 4.30 - 11.10 10*3/?L. The reference range was not used to interpret this result as normal/abnormal . RBC (test code = See_Comment L [Automated 789-8) message] The sy stem which generated this result transmitted reference range : 3.93 - 5.25 10*6/?L. The reference range was not used to interpret this result as normal/abnormal . HGB (test code = 11.4 g/dL 11.6-15 L 718-7) HCT (test code = 33.8 % 35.7-45.2 L 4544-3) MCV (test code = 92.6 fL 80.6-95.5 787-2) MCH (test code = 31.2 pg 25.9-32.8 785-6) MCHC (test code = 33.7 g/dL 31.6-35.1 786-4) RDW-SD (test code = 41.6 fL 39-49.9 19028-5) RDW-CV (test code = 12.3 % 12-15.5 788-0) PLT (test code = See_Comment [Automated 777-3) message] The sy stem which generated this result transmitted reference range : 166 - 358 10*3/ ?L. The reference r arlin was not used to interpret this result as normal/abnormal . MPV (test code = 9.6 fL 9.5-12.9 36256-2) NRBC/100 WBC (test See_Comment [Automat ed code = 6482749341) message] The system which generated this result transmitted reference range : 0.0 - 10.0 /100 WBCs. The refer ence range was not u sed to interpret th is result as normal/abnormal . NRBC x10^3 (test code <0.01 See_Comment [Auto mated = 9293850707) message] The s ystem which generated this result transmitted reference range : 10*3/?L. The reference range was not used to interpret this result as normal/abnormal . GRAN MAT (NEUT) % 74.3 % (test code = 770-8) IMM GRAN % (test code 0.40 % = 4866865003) LYMPH % (test code = 19.4 % 736-9) MONO % (test code = 3.7 % 5905-5) EOS % (test code = 1.8 % 713-8) BASO % (test code = 0.4 % 706-2) GRAN MAT x10^3(ANC) 5.87 10*3/uL 1.88-7.09 (test code = 2390788881) IMM GRAN x10^3 (test 0.03 10*3/uL 0-0.06 code = 4286748732) LYMPH x10^3 (test code 1.53 10*3/uL 1.32-3.29 = 731-0) MONO x10^3 (test code 0.29 10*3/uL 0.33-0.92 L = 742-7) EOS x10^3 (test code = 0.14 10*3/uL 0.03-0.39 711-2) BASO x10^3 (test code 0.03 10*3/uL 0.01-0.07 = 704-7) Lab Interpretation Abnormal (test code = 73957-3) General acute hospital URINALYSIS W/O SPECIFIC [id number] 14:15:00 Test Item Value Reference Range Interpretation Comments POCT PH U (test code = 3254) n/a 5-8 POCT U LEUK EST (test code = 3263) n/a Negative - Negative POCT U NIT (test code = 3262) n/a Negative - Negative POCT U PROT (test code = 3259) neg Negative - Negative POCT U GLU (test code = 3256) neg Negative - Negative POCT U KETONE (test code = 3258) n/a Negative - Negative POCT U BLD (test code = 3257) n/a Negative - Negative [facility]
--- NOTE | 2021-08-17 01:50 | EDPHYS ---
Physician Documentation [facility] Name: Cecelia Polk Age: 30 yrs Sex: Female : 1990 Arrival Date: 08/16/2021 Time: 23:39 Bed Treatment Private MD: ED Physician Joshua Sam HPI: 08/17 05:29 This 30 yrs old Female presents to ER via Ambulatory with complaints of Sore Throat, kdr Runny Nose, Congestion. 05:29 The patient presents with sore throat. The patient describes throat pain as burning, kdr dry, intermittent, raw, scratchy. Onset: The symptoms/episode began/occurred this morning, today. Severity of symptoms: At their worst the symptoms were mild, moderate, in the emergency department the symptoms have resolved. Modifying factors: The symptoms are alleviated by nothing. Associated signs and symptoms: The patient has no apparent associated signs or symptoms. The patient has not experienced similar symptoms in the past. The patient has not recently seen a physician. Patient has mild upper respiratory symptoms otherwise she is not acutely ill nor appearing so. 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 - Social history:: Smoking status: Patient denies any tobacco usage or history of. ROS: 05:29 Constitutional: Negative for fever, chills, and weight loss, Eyes: Negative for injury, kdr pain, redness, and discharge, ENT: Negative for injury, pain, and discharge, Neck: Negative for injury, pain, and swelling, Cardiovascular: Negative for chest pain, palpitations, and edema, Abdomen/GI: Negative for abdominal pain, nausea, vomiting, diarrhea, and constipation, Back: Negative for injury and pain, : Negative for injury, bleeding, discharge, and swelling, MS/Extremity: Negative for injury and deformity, Skin: Negative for injury, rash, and discoloration, Neuro: Negative for headache, weakness, numbness, tingling, and seizure activity. Psych: Negative for depression, anxiety, suicide ideation, homicidal ideation, and hallucinations, Allergy/Immunology: Negative for hives, rash, and allergies, Endocrine: Negative for neck swelling, polydipsia, polyuria, polyphagia, and marked weight changes, Hematologic/Lymphatic: Negative for swollen nodes, abnormal bleeding, and unusual bruising. 05:29 Respiratory: Positive for cough, Negative for pleurisy, shortness of breath, sputum production, wheezing. Exam: 05:29 Constitutional: This is a well developed, well nourished patient who is awake, alert, kdr and in no acute distress. Head/Face: Normocephalic, atraumatic. Eyes: Pupils equal round and reactive to light, extra-ocular motions intact. Lids and lashes normal. Conjunctiva and sclera are non-icteric and not injected. Cornea within normal limits. Periorbital areas with no swelling, redness, or edema. Neck: Trachea midline, no thyromegaly or masses palpated, and no cervical lymphadenopathy. Supple, full range of motion without nuchal rigidity, or vertebral point tenderness. No Meningismus. Chest/axilla: Normal chest wall appearance and motion. Nontender with no deformity. No lesions are appreciated. Cardiovascular: Regular rate and rhythm with a normal S1 and S2. No gallops, murmurs, or rubs. Normal PMI, no JVD. No pulse deficits. Respiratory: Lungs have equal breath sounds bilaterally, clear to auscultation and percussion. No rales, rhonchi or wheezes noted. No increased work of breathing, no retractions or nasal flaring. Abdomen/GI: Soft, non-tender, with normal bowel sounds. No distension or tympany. No guarding or rebound. No evidence of tenderness throughout. Back: No spinal tenderness. No costovertebral tenderness. Full range of motion. MS/ Extremity: Pulses equal, no cyanosis. Neurovascular intact. Full, normal range of motion. Neuro: Awake and alert, GCS 15, oriented to person, place, time, and situation. Cranial nerves II-XII grossly intact. Motor strength 5/5 in all extremities. Sensory grossly intact. Cerebellar exam normal. Normal gait. Psych: Awake, alert, with orientation to person, place and time. Behavior, mood, and affect are within normal limits. Vital Signs: 00:09 BP 131 / 84; Pulse 89 LA; Resp 18; Temp 99.2(O); Pulse Ox 100% on R/A; Weight 108.86 kg bb (R); Height 5 ft. 6 in. (167.64 cm) (R); Pain 0/10; 00:09 Body Mass Index 38.74 (108.86 kg, 167.64 cm) bb MDM: 01:49 Patient medically screened. kdr 05:29 Data reviewed: vital signs, nurses notes, lab test result(s), radiologic studies. kdr Counseling: I had a detailed discussion with the patient and/or guardian regarding: the historical points, exam findings, and any diagnostic results supporting the discharge/admit diagnosis, lab results, the need for outpatient follow up. 08/17 00:41 Order name: COVID-19/FLU A+B (Document "Date of Onset" if Symptomatic); Complete Time: bb 02:08/17 00:41 Order name: Strep; Complete Time: 02:01 bb Administered Medications: No medications were administered Disposition Summary: 08/17/21 01:49 Discharge Ordered Location: Home kdr Problem: new kdr Symptoms: have improved kdr Condition: Stable kdr Diagnosis - Acute laryngopharyngitis kdr - Cough kdr - Acute upper respiratory infection, unspecified kdr - Viral infection, unspecified kdr - SARS-associated coronavirus as the cause of diseases classified elsewhere - kdr Presumptive Followup: kdr - With: Private Physician - When: 2 - 3 days - Reason: If symptoms return, Further diagnostic work-up, Recheck today's complaints, Continuance of care, Re-evaluation by your physician Discharge Instructions: - Discharge Summary Sheet kdr - Upper Respiratory Infection, Adult kdr - Viral Respiratory Infection, [id number] kdr - COVID-19 kdr - 10 Things You Can Do to Manage Your COVID-19 Symptoms at Home - [facility] kdr - Strep Throat, Adult, [id number] kdr - COVID-19: Quarantine vs. Isolation - [facility] kdr - Prevent the Spread of COVID-19 if You Are Sick - [facility] kdr Forms: - Medication Reconciliation Form kdr - Thank You Letter kdr Prescriptions: - Amoxicillin 500 mg Oral Capsule - take 1 capsule by ORAL route every 8 hours for 10 days; 30 tablet; Refills: 0, kdr Product Selection Permitted Signatures: Dispatcher [employer] Joshua Mcgraw MD MD kdr Libia Rooney RN RN bb
--- NOTE | 2021-08-17 01:50 | ER ---
Nurse's Notes [facility] Name: Cecelia Polk Age: 30 yrs Sex: Female : 1990 Arrival Date: 08/16/2021 Time: 23:39 Bed Treatment Private MD: Diagnosis: Acute laryngopharyngitis;Cough;Acute upper respiratory infection, unspecified;Viral infection, unspecified;SARS-associated coronavirus as the cause of diseases classified elsewhere-Presumptive Presentation: 08/17 00:09 Chief complaint: Patient states: tested positive yesterday. onset of covid bb symptoms started early today. runny nose, congestion, fever, cough, headache. took tylenol at home for fever. denies any SOB. Coronavirus screen: Vaccine status: Patient reports receiving the 2nd dose of the covid vaccine. 23press x2 Client denies travel out of the [place] in the last 14 days. Client presents with at least one sign or symptom that may indicate coronavirus-19. Standard/surgical mask placed on the client. Ebola Screen: No symptoms or risks identified at this time. 00:09 Method Of Arrival: Ambulatory bb 00:09 Initial Sepsis Screen: Does the patient meet any 2 criteria? No. Patient's initial bb sepsis screen is negative. Does the patient have a suspected source of infection? No. Patient's initial sepsis screen is negative. Risk Assessment: Do you want to hurt yourself or someone else? Patient reports no desire to harm self or others. Onset of symptoms was August 16, 2021 at 08:00. 00:26 Acuity: CRISTOBAL 4 bb Triage Assessment: 00:16 General: Appears in no apparent distress. comfortable, Behavior is calm, cooperative. bb Pain: Denies pain. EENT: No signs and/or symptoms were reported regarding the EENT system. 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 - Social history:: Smoking status: Patient denies any tobacco usage or history of. Screenin:15 Abuse screen: Denies threats or abuse. Nutritional screening: No deficits noted. bb Tuberculosis screening: No symptoms or risk factors identified. Fall Risk None identified. Assessment: 02:15 Reassessment: Patient is alert, oriented x 3, equal unlabored respirations, skin bb warm/dry/pink. pt verbalized understanding of and agrees to plan of care discharge instructions given pt ambulated with steady gait to exit. Vital Signs: 00:09 BP 131 / 84; Pulse 89 LA; Resp 18; Temp 99.2(O); Pulse Ox 100% on R/A; Weight 108.86 kg bb (R); Height 5 ft. 6 in. (167.64 cm) (R); Pain 0/10; 00:09 Body Mass Index 38.74 (108.86 kg, 167.64 cm) bb ED Course: 08/16 23:39 Patient arrived in ED. bp1 23:48 Joshua Sam MD is Attending Physician. kdr 01 00:16 Triage completed. bb 00:16 Arm band placed on. bb 02:15 Libia Rooney, RN is Primary Nurse. bb 02:15 Patient has correct armband on for positive identification. Call light in reach. bb 02:15 No provider procedures requiring assistance completed. Patient did not have IV access bb during this emergency room visit. Administered Medications: No medications were administered Outcome: 01:49 Discharge ordered by . kdr 02:15 Discharged to home ambulatory. bb 02:15 Condition: stable 02:15 Discharge instructions given to patient, Instructed on discharge instructions, follow up and referral plans. medication usage, Demonstrated understanding of instructions, follow-up care, medications, Prescriptions given X 1. 02:17 Patient left the ED. bb Signatures: Joshua Sam MD MD kdr Libia Rooney, RN RN bb Rachel Morel bp1 Corrections: (The following items were deleted from the chart) 00:27 00:09 Acuity: CRISTOBAL 2 bb bb
[2021-08-17 01:54] LABS: SARS-COV-2 RT PCR NEGATIVE (NEGATIVE)
[2021-08-17 02:24] VITALS: BP 131/84; TEMP 99.2; O2SAT 100
== END 2021-08-17 02:17 | disposition home or self-care (01) ==
LOC: ER 23:35
DX: J06.0 Acute laryngopharyngitis (principal); J06.9 Acute upper respiratory infection, unspecified; B34.9 Viral infection, unspecified; Z20.822 Contact with and (suspected) exposure to COVID-19
CPT/HCPCS: 87081; 0240U; 99282

== ENCOUNTER 2022-09-27 13:36 | Emergency (ER) | payer BC, OTHER ==
--- OUTSIDE RECORDS SUMMARY | 2022-09-27 13:56 | XMS REPORT | Continuity of Care Document ---
:[address] [facility] t Address [address] [place] [address] [address]. [address] [place] [address] Care Team Providers Name Role Phone ENE NIETO Attending Clinician Unavailable KAYLEEN SCHAEFER Attending Clinician Unavailable Kindra Griggs MD Attending Clinician Ene Nieto PA-C Attending Clinician Doctor Unassigned, [place] Attending Clinician Unavailable Nurse, [facility] Attending Clinician Unavailable KINDRA GRIGGS Attending Clinician Unavailable Only, [facility] Test Attending Clinician Unavailable 2, [facility] Lab Attending Clinician Unavailable Ultrasound, [facility] Mfm Attending Clinician Unavailable Lab, [facility] Fam Pob I Attending Clinician Unavailable Estephania Blair Attending Clinician Ultrasound, Ang-Mfm Attending Clinician Unavailable Jatinder Yeh MD Attending Clinician Kindra Griggs MD Admitting Clinician KINDRA GRIGGS Admitting Clinician Unavailable Payers Payer Name Policy Type Policy Number Effective Date Expiration Date S cj [place] [employer] [id number] 2019 HEALTH 00:00:00 Problems Condition Condition Condition Status Onset Resolution Last Treating Co mments Source Name Details Category Date Date Treatment Clinician Date 39 weeks 39 weeks Disease Active 2019-08 Unive rs gestation gestation 0-26 ity of of of 00:00: [place] 00 [facility] Liveborn Liveborn Disease Active 2019-08 Unive rs , of , of 0-26 it y of lackey lackey 00:00: [place] , , 00 Me dical born in born in [facility] hospital by by delivery delivery Morbid Morbid Disease Active Univers obesity obesity 8-28 [place] of with body [place] mass index mass index 00 [place] dical of of [place] 40.0-49.9 40.0-49.9 Obesity Obesity Disease Active 2019- Univers (BMI (BMI 4-20 ity of 30-39.9) 30-39.9) 00:00: [place] 00 [facility] Mild Mild Disease Active Univers intermitte intermitte 4-20 [place] y of nt asthma nt asthma 00:[place] without without 00 Medical complicati complicati Br anch on on Supervisio Supervisio Disease Active U nivers n of other n of other 4-20 it y of normal normal 00:00: [place] 00 [facility] Previous Previous Disease Active Unive rs 4-20 ity of section section 00:00: [address] Allergies, Adverse Reactions, Alerts Allergy Allergy Status Severity Reaction(s) Onset Inactive Treating Comm ents Source Name Type Date Date Clinician NO KNOWN Drug Active Univers ALLERGIE Class ity of S [facility] Social History Social Habit Start Date Stop Date Quantity Comments Source ASSERTION 2019-09-17 [facility] 00:00:00 [facility] Exposure to Not sure [facility] SARS-CoV-2 [facility] (event) [place] Alcohol intake 2020-07-02 2020-07-02 Ex-drinker [facility] 00:00:00 00:00:00 (finding) [facility] Tobacco use and 2020-07-02 2020-07-02 Never used Universit y of exposure 00:00:00 00:00:00 [facility] Sex [birth year] Universit y of 00:00:00 00:00:00 [facility] Smoking Status Start Date Stop Date Source Never smoker [facility] Medications Ordered Filled Start Stop Current Ordering Indication Dosage Frequency Signature Comments Components Source Medication Medication Date Date Medication? Clinician (SIG) Name Name norethindro 2019-08 Yes [id number] 1{tbl} Take 1 Univers ne 0.35 mg 1-24 tablet by ity of tablet 00:00: mouth [place] 00 daily. Medical Branch norethindro 2019-08 Yes [id number] 1{tbl} Take 1 Univers ne 0.35 mg 1-24 tablet by ity of tablet 00:00: mouth [place] 00 daily. Medical Branch norethindro 2019-08 Yes [id number] 1{tbl} Take 1 Univers ne 0.35 mg 1-24 tablet by ity of tablet 00:00: mouth [place] 00 daily. Medical Branch ibuprofen 2019-08 Yes 600mg 600 mg, Univ ers (IBU) 0-28 Oral, Q6H ity of tablet 600 05:00: ABX, First [place] mg 00 dose on Medical Wed Branch 06/05/20 at 0000, Until Discontinu ed, Routine PNV 2019-08 2020- No Take by [facility] 102-iron-fo 0-06-04 mouth. ity o f late 15:53: 00:00 [place] 1-dss-dha 17 :00 [facility] 90 mg [place] iron-1 mg -50 mg-200 mg Cap HYDROcodone 2019-08 Yes 1{tbl} 1 tablet, Univers -acetaminop 027 Oral, ity of hen (NORCO 15:49: Q6HPRN, [place] 5) 5-325 mg 16 Starting Medi sarbjit tablet 1 [facility] tablet 06/04/20 at 1049, Until Discontinu ed, Routine, Pain (scale 7-10) acetaminoph 2019-08 Yes 650mg 650 mg, Un neal en 027 Oral, Q6H ity of (TYLENOL) 13:45: ABX, First [place] tablet 650 00 dose on Medica l mg [place] 06/04/20 at 0845, Until Discontinu ed, Routine ketorolac 2019-08 2020- No 30mg 30 mg, Unive rs (TORADOL) 006-04 Slow IV ity of injection 05:00: 22:40 Push, Q6H [place] 30 mg 00 :00 ABX, 4 Medical doses, Branch First dose on Wed06/04/20 at 0000, Last dose on Wed06/04/20 at 1800, Routine
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 2019-08 Yes [id number] 1{tbl} Take 1 Univers vitamin 0-27 tablet by ity of w/FA tablet 00:00: mouth [place] 00 daily. Medical Branch docusate 2019-08 Yes [id number] 240mg Take 1 U nivers calcium 240 0-27 capsule by it y of mg capsule 00:00: mouth once [place] 00 daily as Medical needed for Branch Constipati on. ferrous 2019-08 Yes [id number] 325mg Take 1 Un neal sulfate 325 0-27 tablet by ity of mg (65 mg 00:00: mouth 2 [place] iron) 00 (two) Medical tablet times Branch daily. ibuprofen 2019-08 Yes [id number] 600mg Take 1 Univers 600 mg 0-27 tablet by ity of tablet 00:00: mouth [place] 00 every 6 Medical (six) Branch hours as needed for Pain (scale 1-3) or Pain (scale 4-6) (Pain). Take with food or milk. acetaminoph 2019-08 Yes [id number] 650mg Take 2 Univers en 325 mg 0-27 tablets by ity of tablet 00:00: mouth [place] 00 every 6 Medical (six) Branch hours as needed for Pain (scale 1-3) or Pain (scale 4-6). 2019-08 Yes [id number] 1{tbl} Take 1 Univers vitamin 0-27 tablet by ity of w/FA tablet 00:00: mouth [place] 00 daily. Medical Branch docusate 2019-08 Yes [id number] 240mg Take 1 U nivers calcium 240 0-27 capsule by it y of mg capsule 00:00: mouth once [place] 00 daily as Medical needed for Branch Constipati on. ferrous 2019-08 Yes [id number] 325mg Take 1 Un neal sulfate 325 0-27 tablet by ity of mg (65 mg 00:00: mouth 2 [place] iron) 00 (two) Medical tablet times Branch daily. ibuprofen 2019-08 Yes [id number] 600mg Take 1 Univers 600 mg 0-27 tablet by ity of tablet 00:00: mouth [place] 00 every 6 Medical (six) Branch hours as needed for Pain (scale 1-3) or Pain (scale 4-6) (Pain). Take with food or milk. acetaminoph 2019-08 Yes [id number] 650mg Take 2 Univers en 325 mg 0-27 tablets by ity of tablet 00:00: mouth [place] 00 every 6 Medical (six) Branch hours as needed for Pain (scale 1-3) or Pain (scale 4-6). 2019-08 Yes [id number] 1{tbl} Take 1 Univers vitamin 0-27 tablet by ity of w/FA tablet 00:00: mouth [place] 00 daily. Medical Branch docusate 2019-08 Yes [id number] 240mg Take 1 U nivers calcium 240 0-27 capsule by it y of mg capsule 00:00: mouth once [place] 00 daily as Medical needed for Branch Constipati on. ferrous 2019-08 Yes [id number] 325mg Take 1 Un neal sulfate 325 0-27 tablet by ity of mg (65 mg 00:00: mouth 2 [place] iron) 00 (two) Medical tablet times Branch daily. ibuprofen 2019-08 Yes [id number] 600mg Take 1 Univers 600 mg 0-27 tablet by ity of tablet 00:00: mouth [place] 00 every 6 Medical (six) Branch hours as needed for Pain (scale 1-3) or Pain (scale 4-6) (Pain). Take with food or milk. acetaminoph 2019-08 Yes [id number] 650mg Take 2 Univers en 325 mg 0-27 tablets by ity of tablet 00:00: mouth [place] 00 every 6 Medical (six) Branch hours as needed for Pain (scale 1-3) or Pain (scale 4-6). 2019-08 Yes [id number] 1{tbl} Take 1 Univers vitamin 0-27 tablet by ity of w/FA tablet 00:00: mouth [place] 00 daily. Medical Branch docusate 2019-08 Yes [id number] 240mg Take 1 U nivers calcium 240 0-27 capsule by it y of mg capsule 00:00: mouth once [place] 00 daily as Medical needed for Branch Constipati on. ferrous 2019-08 Yes [id number] 325mg Take 1 Un neal sulfate 325 0-27 tablet by ity of mg (65 mg 00:00: mouth 2 [place] iron) 00 (two) Medical tablet times Branch daily. ibuprofen 2019-08 Yes [id number] 600mg Take 1 Univers 600 mg 0-27 tablet by ity of tablet 00:00: mouth [place] 00 every 6 Medical (six) Branch hours as needed for Pain (scale 1-3) or Pain (scale 4-6) (Pain). Take with food or milk. acetaminoph 2019-08 Yes [id number] 650mg Take 2 Univers en 325 mg 0-27 tablets by ity of tablet 00:00: mouth [place] 00 every 6 Medical (six) Branch hours as needed for Pain (scale 1-3) or Pain (scale 4-6). 2019-08 Yes [id number] 1{tbl} Take 1 Univers vitamin 0-27 tablet by ity of w/FA tablet 00:00: mouth [place] 00 daily. Medical Branch docusate 2019-08 Yes [id number] 240mg Take 1 U nivers calcium 240 0-27 capsule by it y of mg capsule 00:00: mouth once [place] 00 daily as Medical needed for Branch Constipati on. ferrous 2019-08 Yes [id number] 325mg Take 1 Un neal sulfate 325 0-27 tablet by ity of mg (65 mg 00:00: mouth 2 [place] iron) 00 (two) Medical tablet times Branch daily. ibuprofen 2019-08 Yes [id number] 600mg Take 1 Univers 600 mg 0-27 tablet by ity of tablet 00:00: mouth [place] 00 every 6 Medical (six) Branch hours as needed for Pain (scale 1-3) or Pain (scale 4-6) (Pain). Take with food or milk. acetaminoph 2019-08 Yes [id number] 650mg Take 2 Univers en 325 mg 0-27 tablets by ity of tablet 00:00: mouth [place] 00 every 6 Medical (six) Branch hours as needed for Pain (scale 1-3) or Pain (scale 4-6). 2019-08 Yes [id number] 1{tbl} Take 1 Univers vitamin 0-27 tablet by ity of w/FA tablet 00:00: mouth [place] 00 daily. Medical Branch ferrous 2019-08 Yes [id number] 325mg Take 1 Un neal sulfate 325 0-27 tablet by ity of mg (65 mg 00:00: mouth 2 [place] iron) 00 (two) Medical tablet times Branch daily. ibuprofen 2019-08 Yes [id number] 600mg Take 1 Univers 600 mg 0-27 tablet by ity of tablet 00:00: mouth [place] 00 every 6 Medical (six) Branch hours as needed for Pain (scale 1-3) or Pain (scale 4-6) (Pain). Take with food or milk. acetaminoph 2019-08 Yes [id number] 650mg Take 2 Univers en 325 mg 0-27 tablets by ity of tablet 00:00: mouth [place] 00 every 6 Medical (six) Branch hours as needed for Pain (scale 1-3) or Pain (scale 4-6). 2019-08 Yes [id number] 1{tbl} Take 1 Univers vitamin 0-27 tablet by ity of w/FA tablet 00:00: mouth [place] 00 daily. Medical Branch ferrous 2019-08 Yes [id number] 325mg Take 1 Un neal sulfate 325 0-27 tablet by ity of mg (65 mg 00:00: mouth 2 [place] iron) 00 (two) Medical tablet times Branch daily. ibuprofen 2019-08 Yes [id number] 600mg Take 1 Univers 600 mg 0-27 tablet by ity of tablet 00:00: mouth [place] 00 every 6 Medical (six) Branch hours as needed for Pain (scale 1-3) or Pain (scale 4-6) (Pain). Take with food or milk. acetaminoph 2019-08 Yes [id number] 650mg Take 2 Univers en 325 mg 0-27 tablets by ity of tablet 00:00: mouth [place] 00 every 6 Medical (six) Branch hours as needed for Pain (scale 1-3) or Pain (scale 4-6). 2019-08 Yes [id number] 1{tbl} Take 1 Univers vitamin 0-27 tablet by ity of w/FA tablet 00:00: mouth [place] 00 daily. Medical Branch ferrous 2019-08 Yes [id number] 325mg Take 1 Un neal sulfate 325 0-27 tablet by ity of mg (65 mg 00:00: mouth 2 [place] iron) 00 (two) Medical tablet times Branch daily. ibuprofen 2019-08 Yes [id number] 600mg Take 1 Univers 600 mg 0-27 tablet by ity of tablet 00:00: mouth [place] 00 every 6 Medical (six) Branch hours as needed for Pain (scale 1-3) or Pain (scale 4-6) (Pain). Take with food or milk. docusate 2019-08- No [id number] 240mg Take 1 Univers calcium 240 0-27 [...] 7 days. Indication s: acute pain HYDROcodone 2019-2019- No [id number] 1{tbl} Take 1 U nivers [...] Indication s: acute pain gabapentin 2019-08- No [id number] 300mg Take 1 Univers 300 mg 0-27 11-02 capsule by ity of capsule 00:00: 05:59 mouth [place] 00 :00 every 8 Medical (eight) Branch hours for 5 days. gabapentin 2019- 2020- No [id number] 300mg Take 1 Univers 300 mg 0-27 11-02 capsule by ity of capsule 00:00: 05:59 mouth [place] 00 :00 every 8 Medical (eight) Branch hours for 5 days. acetaminoph 2019-08- No 1000mg 1,000 mg, Univers en ADULT 0-26 10-26 IV ity of (OFIRMEV) 19:45: 19:59 [place]fusion, [place] injection 00 :00 Administer Medi sarbjit 1,000 mg over 15 Branch Minutes, ONCE, 1 dose, [facility] 06/03/20 at 1445, Routine, PACU
Indicatio n: Perioperat chantal Patient gabapentin 2019-08 2020- No 300mg 300 mg, Un neal (NEURONTIN) 0-26 10-26 Oral, TID, i ty of capsule 300 19:00: 22:40 First dose [place] mg 00 :54 on [facility] Medical 06/03/20 Branch at 1400, Until Discontinu ed, Routine simethicone 2019-08 Yes 160mg 160 mg, Un neal (GAS RELIEF 0-26 Oral, ity of (SIMETHICON 18:00: PC+HS, [place] E)) 00 First dose Medical chewable on Wed [place] tablet 160 06/03/20 mg at 1300, Until Discontinu ed, Routine lactated 2019-08 Yes 1000mL at 75 Univer s ringers IV 0-26 mL/hr, ity of infusion 16:30: 1,000 mL, [place] 1,000 mL 00 IV Medical Infusion, Branch CONTINUOUS , Starting Wed06/03/20 at 1130, Until Discontinu ed, Routine, PACU lactated 2019-08 2020- No 1000mL at 125 Univ ers ringers IV 0-26 10-27 mL/hr, ity of infusion 16:30: 01:01 1,000 mL, [place] 1,000 mL 00 :00 IV Medical Infusion, Branch ONCE, 1 dose, [facility] 06/03/20 at 1130, Routine rho(D) 2019-08 Yes 300ug 300 mcg, Univer s immune 0-26 Intramuscu ity of globulin 16:25: lar, ONCE, [place] (RHOGAM) 26 For 1 Medical syringe 300 dose, Branch mcg Conditiona l, Routine ondansetron 2019-08 Yes 4mg 4 mg, Slow Univers (ZOFRAN 0-26 IV Push, ity of (PF)) 16:25: Q8HPRN, [place] injection 4 13 Starting Medi sarbjit mg [facility] Branch 06/03/20 at 1125, Until Discontinu ed, Routine, Nausea and Vomiting (N/V) magnesium 2019-08 Yes 30mL 30 mL, Univer s hydroxide 0-26 Oral, ity of (MILK OF 16:25: QDAILYPRN, [place] MAGNESIA) 13 Starting Medica l 400 mg/5 mL [facility] suspension 06/03/20 30 mL at 1125, Until Discontinu ed, Routine, Constipati on diphenhydrA 2019-08 Yes 25mg 25 mg, Univ ers MINE 0-26 Oral, ity of (BENADRYL) 16:25: Q6HPRN, [place] tablet 25 12 Starting Medica l mg [facility] 06/03/20 at 1125, Until Discontinu ed, Routine, Sleep, Itching bisacodyL 2019-08 Yes 10mg 10 mg, Univer s (DULCOLAX) 0-26 Rectal, ity of suppository 16:25: QDAILYPRN, [place] 10 mg 12 Starting Medical [facility] 06/03/20 at 1125, Until Discontinu ed, Routine, Constipati on docusate 2019-08 Yes 240mg 240 mg, Unive rs calcium 0-26 Oral, ity of (SURFAK) 16:25: QDAILYPRN, [place] capsule 240 12 Starting Medi sarbjit mg [facility] 06/03/20 at 1125, Until Discontinu ed, Routine, Constipati on ondansetron 2019-08 Yes 4mg 4 mg, Slow Univers (ZOFRAN 0-26 IV Push, ity of (PF)) 16:24: PRN, 1 [place] injection 4 51 dose, Medical mg Starting [facility] 06/03/20 at 1124, Until Discontinu ed, Routine, [...] :00 Infusion, Medical ONCE, 1 Branch dose, 06/03/20 at 0830, Routine sodium 2019-08 Yes [...] Routine, Surgery PNV 2020-0 Yes Take by Univers 102-iron-fo [...] 102-iron-fo 4-20 mouth. ity of late 14:01: [place] 1-dss-dha 37 Medical 90 mg Branch iron-1 [...] 102-iron-fo 4-20 mouth. ity of late 14:: [place] 1-dss-dha 37 Medical 90 mg Branch iron-1 mg -50 mg-200 mg Cap PNV 2020-0 Yes Take by Univers 102-iron-fo 4-20 mouth. ity of late 14:: [place] 1-dss-dha 37 Medical 90 mg Branch iron-1 mg -50 mg-200 mg Cap PNV 2020-0 Yes Take by Univers 102-iron-fo 4-20 mouth. ity of late 14:: [place] 1-dss-dha 37 Medical 90 mg Branch iron-1 mg -50 mg-200 mg Cap PNV 2020-0 Yes Take by Univers 102-iron-fo 4-20 mouth. ity of late 14:: [place] 1-dss-dha 37 Medical 90 mg Branch iron-1 mg -50 mg-200 mg Cap PNV 2020-0 Yes Take by Univers 102-iron-fo 4-20 mouth. ity of late 14:: [place] 1-dss-dha 37 Medical 90 mg Branch iron-1 mg -50 mg-200 mg Cap PNV 2020-0 Yes Take by Univers 102-iron-fo 4-20 mouth. ity of late 14:: [place] 1-dss-dha 37 Medical 90 mg Branch iron-1 mg -50 mg-200 mg Cap PNV 2020-0 Yes Take by Univers 102-iron-fo 4-20 mouth. ity of late 14:01: [place] 1-dss-dha 37 Medical 90 mg Branch iron-1 mg -50 mg-200 mg Cap PNV 2020-0 Yes Take by Univers 102-iron-fo 4-20 mouth. ity of late 14:01: [place] 1-dss-dha 37 Medical 90 mg Branch iron-1 [...] 102-iron-fo 4-20 mouth. ity of late 14:: [place] Hanna-dss-dha 37 Medical 90 mg Branch iron-1 mg -50 mg-200 mg Cap PNV 2020-0 Yes Take by Univers 102-iron-fo 4-20 mouth. ity of late 14:: [place] Hanna-dss-dha 37 Medical 90 mg Branch iron-1 mg -50 mg-200 mg Cap PNV 2020-0 Yes Take by Univers 102-iron-fo 4-20 mouth. ity of late 14:: [place] Hanna-dss-dha 37 Medical 90 mg Branch iron-1 [...] 102-iron-fo 4-20 mouth. ity of late 14:: [place] 1-dss-dha 37 Medical 90 mg Branch iron-1 mg -50 mg-200 mg Cap PNV 2020-0 Yes Take by Univers 102-iron-fo 4-20 mouth. ity of late 14:: [place] Hanna-dss-dha 37 Medical 90 mg Branch iron-1 mg -50 mg-200 mg Cap PNV 2020-0 Yes Take by [facility] 102-iron-fo 4-20 mouth. ity of late 14:: [place] Hanna-dss-dha 37 Medical 90 mg Branch iron-1 mg -50 mg-200 mg Cap PNV 2020-0 Yes Take by [facility] 102-iron-fo 4-20 mouth. ity of late 14:: [place] Hanna-dss-dha 37 Medical 90 mg Branch iron-1 mg -50 mg-200 mg Cap PNV 2020-0 Yes Take by Univers 102-iron-fo 4-20 mouth. ity of late 14:: [place] Hanna-dss-dha 37 Medical 90 mg Branch iron-1 mg -50 mg-200 mg Cap PNV 2020-0 Yes Take by [facility] 102-iron-fo 4-20 mouth. ity of late 14:: [place] Hanna-dss-dha 37 Medical 90 mg Branch iron-1 mg -50 mg-200 mg Cap albuterol 2020-0 Yes [id number] 2{puff} Inhale 2 Univers 90 4-20 Puffs ity of mcg/actuati 00:00: every 6 [place] on inhaler 00 (six) Medical hours as Branch needed for Wheezing, Shortness of Breath, Bronchospa sm or Chest tightness. albuterol 2020-0 Yes [id number] 2{puff} Inhale 2 Univers 90 4-20 Puffs ity of mcg/actuati 00:00: every 6 [place] as on inhaler 00 (six) Medical hours as Branch needed for Wheezing, Shortness of Breath, Bronchospa sm or Chest tightness. albuterol 2020-0 Yes [id number] 2{puff} Inhale 2 Univers 90 4-20 Puffs ity of mcg/actuati 00:00: every 6 [place] as on inhaler 00 (six) Medical hours as Branch needed for Wheezing, Shortness of Breath, Bronchospa sm or Chest tightness. albuterol 2020-0 Yes [id number] 2{puff} Inhale 2 Univers 90 4-20 Puffs ity of mcg/actuati 00:00: every 6 [place]ima as on inhaler 00 (six) Medical hours as Branch needed for Wheezing, Shortness of Breath, Bronchospa sm or Chest tightness. albuterol 2020-0 Yes [id number] 2{puff} Inhale 2 Univers 90 4-20 Puffs ity of mcg/actuati 00:00: every 6 [place] as on inhaler 00 (six) Medical hours as Branch needed for Wheezing, Shortness of Breath, Bronchospa sm or Chest tightness. albuterol 2020-0 Yes [id number] 2{puff} Inhale 2 Univers 90 4-20 Puffs ity of mcg/actuati 00:00: every 6 [place] as on inhaler 00 (six) Medical hours as Branch needed for Wheezing, Shortness of Breath, Bronchospa sm or Chest tightness. albuterol 2020-0 Yes [id number] 2{puff} Inhale 2 Univers 90 4-20 Puffs ity of mcg/actuati 00:00: every 6 [place]ima as on inhaler 00 (six) Medical hours as Branch needed for Wheezing, Shortness of Breath, Bronchospa sm or Chest tightness. albuterol 2020-0 Yes [id number] 2{puff} Inhale 2 Univers 90 4-20 Puffs ity of mcg/actuati 00:00: every 6 [place]ima as on inhaler 00 (six) Medical hours as Branch needed for Wheezing, Shortness of Breath, Bronchospa sm or Chest tightness. albuterol 2020-0 Yes [id number] 2{puff} Inhale 2 Univers 90 4-20 Puffs ity of mcg/actuati 00:00: every 6 [place]ima as on inhaler 00 (six) Medical hours as Branch needed for Wheezing, Shortness of Breath, Bronchospa sm or Chest tightness. albuterol 2020-0 Yes [id number] 2{puff} Inhale 2 Univers 90 4-20 Puffs ity of mcg/actuati 00:00: every 6 Dima as on inhaler 00 (six) Medical hours as Branch needed for Wheezing, Shortness of Breath, Bronchospa sm or Chest tightness. albuterol 2020-0 Yes [id number] 2{puff} Inhale 2 Univers 90 4-20 Puffs ity of mcg/actuati 00:00: every 6 Dima as on inhaler 00 (six) Medical hours as Branch needed for Wheezing, Shortness of Breath, Bronchospa sm or Chest tightness. albuterol 2020-0 Yes [id number] 2{puff} Inhale 2 Univers 90 4-20 Puffs ity of mcg/actuati 00:00: every 6 Dima as on inhaler 00 (six) Medical hours as Branch needed for Wheezing, Shortness of Breath, Bronchospa sm or Chest tightness. albuterol 2020-0 Yes [id number] 2{puff} Inhale 2 Univers 90 4-20 Puffs ity of mcg/actuati 00:00: every 6 Dima as on inhaler 00 (six) Medical hours as Branch needed for Wheezing, Shortness of Breath, Bronchospa sm or Chest tightness. albuterol 2020-0 Yes [id number] 2{puff} Inhale 2 Univers 90 4-20 Puffs ity of mcg/actuati 00:00: every 6 Dima as on inhaler 00 (six) Medical hours as Branch needed for Wheezing, Shortness of Breath, Bronchospa sm or Chest tightness. albuterol 2020-0 Yes [id number] 2{puff} Inhale 2 Univers 90 4-20 Puffs ity of mcg/actuati 00:00: every 6 Dima as on inhaler 00 (six) Medical hours as Branch needed for Wheezing, Shortness of Breath, Bronchospa sm or Chest tightness. albuterol 2020-0 Yes [id number] 2{puff} Inhale 2 Univers 90 4-20 Puffs ity of mcg/actuati 00:00: every 6 Dima as on inhaler 00 (six) Medical hours as Branch needed for Wheezing, Shortness of Breath, Bronchospa sm or Chest tightness. albuterol 2020-0 Yes [id number] 2{puff} Inhale 2 Univers 90 4-20 Puffs ity of mcg/actuati 00:00: every 6 Dima as on inhaler 00 (six) Medical hours as Branch needed for Wheezing, Shortness of Breath, Bronchospa sm or Chest tightness. albuterol 2020-0 Yes [id number] 2{puff} Inhale 2 Univers 90 4-20 Puffs ity of mcg/actuati 00:00: every 6 Dima as on inhaler 00 (six) Medical hours as Branch needed for Wheezing, Shortness of Breath, Bronchospa sm or Chest tightness. albuterol 2020-0 Yes [id number] 2{puff} Inhale 2 Univers 90 4-20 Puffs ity of mcg/actuati 00:00: every 6 Dima as on inhaler 00 (six) Medical hours as Branch needed for Wheezing, Shortness of Breath, Bronchospa sm or Chest tightness. albuterol 2020-0 Yes [id number] 2{puff} Inhale 2 Univers 90 4-20 Puffs ity of mcg/actuati 00:00: every 6 Dima as on inhaler 00 (six) Medical hours as Branch needed for Wheezing, Shortness of Breath, Bronchospa sm or Chest tightness. albuterol 2020-0 Yes [id number] 2{puff} Inhale 2 Univers 90 4-20 Puffs ity of mcg/actuati 00:00: every 6 Dima as on inhaler 00 (six) Medical hours as Branch needed for Wheezing, Shortness of Breath, Bronchospa sm or Chest tightness. albuterol 2020-0 Yes [id number] 2{puff} Inhale 2 Univers 90 4-20 Puffs ity of mcg/actuati 00:00: every 6 Dima as on inhaler 00 (six) Medical hours as Branch needed for Wheezing, Shortness of Breath, Bronchospa sm or Chest tightness. albuterol 2020-0 Yes [id number] 2{puff} Inhale 2 Univers 90 4-20 Puffs ity of mcg/actuati 00:00: every 6 Dima as on inhaler 00 (six) Medical hours as Branch needed for Wheezing, Shortness of Breath, Bronchospa sm or Chest tightness. albuterol 2020-0 Yes [id number] 2{puff} Inhale 2 Univers 90 4-20 Puffs ity of mcg/actuati 00:00: every 6 Dima as on inhaler 00 (six) Medical hours as Branch needed for Wheezing, Shortness of Breath, Bronchospa sm or Chest tightness. albuterol 2020-0 Yes [id number] 2{puff} Inhale 2 Univers 90 4-20 Puffs ity of mcg/actuati 00:00: every 6 Dima as on inhaler 00 (six) Medical hours as Branch needed for Wheezing, Shortness of Breath, Bronchospa sm or Chest tightness. albuterol 2020-0 Yes [id number] 2{puff} Inhale 2 Univers 90 4-20 Puffs ity of mcg/actuati 00:00: every 6 Dima as on inhaler 00 (six) Medical hours as Branch needed for Wheezing, Shortness of Breath, Bronchospa sm or Chest tightness. albuterol 2020-0 Yes [id number] 2{puff} Inhale 2 Univers 90 4-20 Puffs ity of mcg/actuati 00:00: every 6 [place] as on inhaler 00 (six) Medical hours as Branch needed for Wheezing, Shortness of Breath, Bronchospa sm or Chest tightness. albuterol 2020-0 Yes [id number] 2{puff} Inhale 2 Univers 90 4-20 Puffs ity of mcg/actuati 00:00: every 6 [place] as on inhaler 00 (six) Medical hours as Branch needed for Wheezing, Shortness of Breath, Bronchospa sm or Chest tightness. albuterol 2020-0 Yes [id number] 2{puff} Inhale 2 Univers 90 4-20 Puffs ity of mcg/actuati 00:00: every 6 [place] as on inhaler 00 (six) Medical hours as Branch needed for Wheezing, Shortness of Breath, Bronchospa sm or Chest tightness. albuterol 2020-0 Yes [id number] 2{puff} Inhale 2 Univers 90 4-20 Puffs ity of mcg/actuati 00:00: every 6 [place] as on inhaler 00 (six) Medical hours as Branch needed for Wheezing, Shortness of Breath, Bronchospa sm or Chest tightness. albuterol 2020-0 Yes [id number] 2{puff} Inhale 2 Univers 90 4-20 Puffs ity of mcg/actuati 00:00: every 6 [place] as on inhaler 00 (six) Medical hours as Branch needed for Wheezing, Shortness of Breath, Bronchospa sm or Chest tightness. albuterol 2020-0 Yes [id number] 2{puff} Inhale 2 Univers 90 4-20 Puffs ity of mcg/actuati 00:00: every 6 [place] as on inhaler 00 (six) Medical hours as Branch needed for Wheezing, Shortness of Breath, Bronchospa sm or Chest tightness. albuterol 2020-0 Yes [id number] 2{puff} Inhale 2 Univers 90 4-20 Puffs ity of mcg/actuati 00:00: every 6 [place] as on inhaler 00 (six) Medical hours as Branch needed for Wheezing, Shortness of Breath, Bronchospa sm or Chest tightness. albuterol 2019-0 Yes [id number] 2{puff} Inhale 2 Univers 90 4-20 Puffs ity of mcg/actuati 00:00: every 6 [place] as on inhaler 00 (six) Medical hours as Branch needed for Wheezing, Shortness of Breath, Bronchospa sm or Chest tightness. albuterol 0 2020- No [id number] 2{puff} Inhale 2 Univers 90 4-20 10-27 Puffs ity of mcg/actuati 00:00: 00:00 every 6 [place] inhaler 00 :00 (six) Medical hours as Branch needed for Wheezing, Shortness of Breath, Bronchospa sm or Chest tightness. Immunizations Ordered Filled Immunization Date Status Comments [facility] e Immunization Name Name SARS-COV-2 COVID-19 2020-11-16 Completed Unive [facility] of PFIZER VACCINE 00:00:00 [facility] Influenza Virus 2020-05-22 Completed Universit y of Vaccine [place] .5 mL 00:00:00 [facility] 6+ MO Branch Influenza Virus 2020-05-22 Completed Universit y of Vaccine [place] .5 mL 00:00:00 [facility] 6+ MO Branch Influenza Virus 2020-05-22 Completed Universit y of Vaccine [place] .5 mL 00:00:00 [facility] 6+ MO Branch Influenza Virus 2020-05-22 Completed Universit y of Vaccine [place] .5 mL 00:00:00 [facility] IM 6+ MO Branch Influenza Virus 2020-05-22 Completed Universit y of Vaccine [place] .5 mL 00:00:00 [facility] 6+ MO Branch Influenza Virus 2020-05-22 Completed Universit y of Vaccine [place] .5 mL 00:00:00 [facility] 6+ MO Branch Influenza Virus 2020-05-22 Completed Universit y of Vaccine [place] .5 mL 00:00:00 [facility] IM 6+ MO Branch Influenza Virus 2020-05-22 Completed Universit y of Vaccine [place] .5 mL 00:00:00 [facility] 6+ MO Branch Influenza Virus 2020-05-22 Completed Universit y of Vaccine [place] .5 mL 00:00:00 [facility] 6+ MO Branch Influenza Virus 2020-05-22 Completed [...] Branch TDAP 2020-03-15 Completed University of 00:00:00 [facility] TDAP 2020-03-15 Completed University of 00:00:00 [facility] TDAP 2020-03-15 Completed University of 00:00:00 [facility] TDAP 2020-03-15 Completed University of 00:00:00 [facility] TDAP 2020-03-15 Completed University of 00:00:00 [facility] TDAP 2020-03-15 Completed University of 00:00:00 [facility] TDAP 2020-03-15 Completed University of 00:00:00 [facility] TDAP 2020-03-15 Completed University of 00:00:00 [facility] TDAP 2020-03-15 Completed University of 00:00:00 [facility] TDAP 2020-03-15 Completed University of 00:00:00 [facility] TDAP 2020-03-15 Completed University of 00:00:00 [facility] TDAP 2020-03-15 Completed University of 00:00:00 [facility] TDAP 2020-03-15 Completed University of 00:00:00 [facility] TDAP 2020-03-15 Completed University of 00:00:00 [facility] [place] TDAP 2020-03-15 Completed University of 00:00:00 [facility] TDAP 2020-03-15 Completed University of 00:00:00 [facility] TDAP 2020-03-15 Completed University of 00:00:00 [facility] TDAP 2020-03-15 Completed University of 00:00:00 [facility] TDAP 2020-03-15 Completed University of 00:00:00 [facility] Branch TDAP 2020-03-15 Completed University of 00:00:00 [facility] Branch TDAP 2020-03-15 Completed University of 00:00:00 [facility] TDAP 2020-03-15 Completed University of 00:00:00 [facility] TDAP 2020-03-15 Completed University of 00:00:00 [facility] TDAP 2020-03-15 Completed University of 00:00:00 [facility] TDAP 2020-03-15 Completed University of 00:00:00 [facility] TDAP 2020-03-15 Completed University of 00:00:00 [facility] Branch TDAP 2020-03-15 Completed University of 00:00:00 [facility] TDAP 2020-03-15 Completed University of 00:00:00 [facility] Vital Signs Vital Name Observation Time Observation Value Comments Source Systolic blood 2020-07-02 17:17:00 132 mm[Hg] Univer sity of pressure [facility] Diastolic blood 2020-07-02 17:17:00 88 mm[Hg] Unive rsity of [facility] Heart rate 2020-07-02 17:17:00 57 /min Universi [facility] Body temperature 2020-07-02 17:17:00 36.83 Steffanie [facility] Respiratory rate 2020-07-02 17:17:00 18 /min [facility] Body height 2020-07-02 17:17:00 167.6 cm [facility] ty [facility] Body weight 2020-07-02 17:17:00 111.585 kg [facility] ty [facility] BMI 2020-07-02 17:17:00 39.71 kg/m2 [facility] ty [facility] Systolic blood 2020-07-02 17:17:00 132 mm[Hg] Univer sity of pressure [facility] Diastolic blood 2020-07-02 17:17:00 88 mm[Hg] Unive rsity of pressure [facility] Heart rate 2020-07-02 17:17:00 57 /min Universi ty of [facility] Body temperature 2020-07-02 17:17:00 36.83 Steffanie Univ ersity of [facility] Respiratory rate 2020-07-02 17:17:00 18 /min Univ ersity of [facility] Body height 2020-07-02 17:17:00 167.6 cm Universi ty of [facility] Body weight 2020-07-02 17:17:00 111.585 kg Universi ty of [facility] BMI 2020-07-02 17:17:00 39.71 kg/m2 Universi ty of [facility] Systolic blood 2020-06-11 20:35:00 108 mm[Hg] Univer sity of pressure [facility] Diastolic blood 2020-06-11 20:35:00 70 mm[Hg] Unive rsity of pressure [facility] Heart rate 2020-06-11 20:35:00 67 /min Universi ty of [facility] Body temperature 2020-06-11 20:35:00 36.72 Steffanie Univ ersity of [facility] Respiratory rate 2020-06-11 20:35:00 18 /min Univ ersity of [facility] Body height 2020-06-11 20:35:00 167.6 cm Universi ty of [facility] Body weight 2020-06-11 20:35:00 111.676 kg Universi ty of [facility] BMI 2020-06-11 20:35:00 39.74 kg/m2 Universi ty of [facility] Systolic blood 2020-06-11 20:35:00 108 mm[Hg] Univer sity of pressure [facility] Diastolic blood 2020-06-11 20:35:00 70 mm[Hg] Unive rsity of pressure [facility] Heart rate 2020-06-11 20:35:00 67 /min Universi ty of [facility] Body temperature 2020-06-11 20:35:00 36.72 Steffanie Univ ersity of [facility] Respiratory rate 2020-06-11 20:35:00 18 /min Univ ersity of [facility] Body height 2020-06-11 20:35:00 167.6 cm Universi ty of [facility] Body weight 2020-06-11 20:35:00 111.676 kg Universi ty of [facility] BMI 2020-06-11 20:35:00 39.74 kg/m2 Universi ty of [facility] Systolic blood 2020-06-04 22:30:00 121 mm[Hg] Univer sity of pressure [facility] Diastolic blood 2020-06-04 22:30:00 67 mm[Hg] Unive rsity of pressure [facility] Heart rate 2020-06-04 22:30:00 68 /min Universi ty of [facility] Body temperature 2020-06-04 22:30:00 37 Steffanie Univ ersity of [facility] Respiratory rate 2020-06-04 22:30:00 18 /min Univ ersity of [facility] Oxygen saturation in 2020-06-04 22:30:00 97 /min University of Arterial blood by [place] [employer] sarbjit Pulse oximetry Branch Body height 2020-06-03 11:00:00 167.6 cm Universi ty of [facility] Body weight 2020-06-03 11:00:00 117.391 kg Universi ty of [facility] BMI 2020-06-03 11:00:00 41.79 kg/m2 Universi ty of [facility] Systolic blood 2020-06-04 22:30:00 121 mm[Hg] Univer sity of pressure [facility] Diastolic blood 2020-06-04 22:30:00 67 mm[Hg] Unive rsity of pressure [facility] Heart rate 2020-06-04 22:30:00 68 /min Universi ty of [facility] Body temperature 2020-06-04 22:30:00 37 Steffanie Univ ersity of [facility] Respiratory rate 2020-06-04 22:30:00 18 /min Univ ersity of [facility] Oxygen saturation in 2020-06-04 22:30:00 97 /min University of Arterial blood by [facility] sarbjit Pulse oximetry Branch Body height 2020-06-03 11:00:00 167.6 cm Universi ty of [facility] Body weight 2020-06-03 11:00:00 117.391 kg Universi ty of [facility] BMI 2020-06-03 11:00:00 41.79 kg/m2 Universi ty of [facility] Systolic blood 2020-05-28 21:25:00 113 mm[Hg] Univer sity of pressure [facility] Diastolic blood 2020-05-28 21:25:00 75 mm[Hg] Unive rsity of pressure [facility] Heart rate 2020-05-28 21:25:00 73 /min Universi ty of [facility] Body temperature 2020-05-28 21:25:00 36.89 Steffanie Univ ersity of [facility] Respiratory rate 2020-05-28 21:25:00 18 /min Univ ersity of [facility] Body height 2020-05-28 21:25:00 167.6 cm Universi ty of [facility] Body weight 2020-05-28 21:25:00 118.389 kg Universi ty of [facility] BMI 2020-05-28 21:25:00 42.13 kg/m2 Universi ty of [facility] Systolic blood 2020-05-28 21:25:00 113 mm[Hg] Univer sity of pressure [facility] Diastolic blood 2020-05-28 21:25:00 75 mm[Hg] Unive rsity of pressure [facility] Heart rate 2020-05-28 21:25:00 73 /min Universi ty of [facility] Body temperature 2020-05-28 21:25:00 36.89 Steffanie Univ ersity of [facility] Respiratory rate 2020-05-28 21:25:00 18 /min Univ ersity of [facility] Body height 2020-05-28 21:25:00 167.6 cm Universi ty of [facility] Body weight 2020-05-28 21:25:00 118.389 kg Universi ty of [facility] BMI 2020-05-28 21:25:00 42.13 kg/m2 Universi ty of [facility] Systolic blood 2020-05-22 21:51:00 126 mm[Hg] Univer sity of pressure [facility] Diastolic blood 2020-05-22 21:51:00 85 mm[Hg] Unive rsity of pressure [facility] Heart rate 2020-05-22 21:51:00 77 /min Universi ty of [facility] Body temperature 2020-05-22 21:51:00 36.89 Steffanie Univ ersity of [facility] Respiratory rate 2020-05-22 21:51:00 18 /min Univ ersity of [facility] Body height 2020-05-22 21:51:00 167.6 cm Universi ty of [facility] Body weight 2020-05-22 21:51:00 117.935 kg Universi ty of [facility] BMI 2020-05-22 21:51:00 41.97 kg/m2 Universi ty of [facility] Systolic blood 2020-05-06 21:31:00 127 mm[Hg] Univer sity of pressure [facility] Diastolic blood 2020-05-06 21:31:00 74 mm[Hg] Unive rsity of pressure [facility] Heart rate 2020-05-06 21:31:00 83 /min Universi ty of [facility] Body temperature 2020-05-06 21:31:00 37 Steffanie Univ ersity of [facility] Respiratory rate 2020-05-06 21:31:00 18 /min Univ ersity of [facility] Body height 2020-05-06 21:31:00 167.6 cm Universi ty [facility] Body weight 2020-05-06 21:31:00 115.214 kg Universi ty [facility] BMI 2020-05-06 21:31:00 41.00 kg/m2 Universi ty [facility] Systolic blood 2020-04-18 16:08:00 124 mm[Hg] Univer sity of pressure [facility] Diastolic blood 2020-04-18 16:08:00 73 mm[Hg] Unive rsity of pressure [facility] Heart rate 2020-04-18 16:08:00 82 /min Universi ty of [facility] Body temperature 2020-04-18 16:08:00 36.83 Steffanie Univ ersity of [facility] Respiratory rate 2020-04-18 16:08:00 18 /min Univ ersity of [facility] Body height 2020-04-18 16:08:00 167.6 cm Universi ty of [facility] Body weight 2020-04-18 16:08:00 114.034 kg Universi ty [facility] BMI 2020-04-18 16:08:00 40.58 kg/m2 Universi ty of [facility] Systolic blood 2020-04-05 19:30:00 113 mm[Hg] Univer sity of pressure [facility] Diastolic blood 2020-04-05 19:30:00 72 mm[Hg] Unive rsity of pressure [facility] Heart rate 2020-04-05 19:30:00 80 /min Universi ty of [facility] Body temperature 2020-04-05 19:30:00 36.78 Steffanie Univ ersity of [facility] Respiratory rate 2020-04-05 19:30:00 18 /min Univ ersity of [facility] Body height 2020-04-05 19:30:00 167.6 cm Universi ty [facility] Body weight 2020-04-05 19:30:[address] [facility] BMI 2020-04-05 19:30:00 40.06 kg/m2 Universi ty [facility] Body weight 2020-03-15 14:13:00 109.77 [address] [facility] BMI 2020-03-15 14:13:00 39.06 kg/m2 [facility] Systolic blood 2020-03-15 14:13:00 117 mm[Hg] Univer sity of pressure [facility] Diastolic blood 2020-03-15 14:13:00 69 mm[Hg] Unive rsity [facility] Heart rate 2020-03-15 14:13:00 78 /min [facility] Body temperature 2020-03-15 14:13:00 36.89 Steffanie [facility] Respiratory rate 2020-03-15 14:13:00 18 /min [facility] Body height 2020-03-15 14:13:00 167.6 cm [facility] Procedures Procedure Date / Time Performing Clinician Source Performed CONSENT FOR ORAL 2020-07-02 06:01:00 Doctor Unassigned, [facility] CONTRACEPTIVES [place] [facility] POCT TEST 2020-07-02 00:00:00 Ene Nieto [facility] DME/SUPPLY JUSTIFICATION 2020-06-14 06:01:00 Doctor Unassigned, [facility] WITH DIFF 2020-06-04 09:08:00 Kindra Griggs [facility] VENOUS CORD GAS 2020-06-03 13:42:00 Kindra Griggs [facility] SECTION 2020-06-03 12:43:00 Kindra Griggs [facility] CBC WITH DIFF 2020-06-03 11:48:00 Kindra Griggs [facility] HEPATITIS B SURFACE 2020-06-03 11:48:00 Kindra Griggs [facility] ADC OR RUPINDER ONLY - RPR 2020-06-03 11:48:[address] [facility] HIV 1/2 AG-AB WITH REFLEX 2020-06-03 11:48:00 [facility] 2020-06-03 11:44:00 Kindra Griggs [place] [facility] RHO (D) IMMUNE GLOBULIN 2020-06-03 11:44:00 Kindra Griggs [facility] HOSPITAL ADMISSION 2020-06-03 05:01:00 Doctor Unassjamie, [facility] [place] [facility] [place] CONSENT/REFUSAL FOR 2020-05-31 16:00:16 Doctor Unassjamie, [facility] DIAGNOSIS AND TREATMENT [place] [facility] [place] ASSIGNMENT OF BENEFITS 2020-05-31 15:59:58 Doctor Unassjamie, [facility] Name Medical [place] POCT URINALYSIS W/O 2020-05-28 00:00:00 Kindra Griggs [facility] SPECIFIC GRAVITY [facility] >14 WEEKS US 2020-05-22 22:26:46 Kindra Griggs [facility] FLU VACC ([phone]), 6+ 2020-05-22 21:52:59 Kindra Griggs [facility] MONTHS, IM, [facility] Medical Branch DSU PRE-OP 2020-05-22 05:01:00 Doctor Lalo, [facility] [place] [facility] [place] POCT URINALYSIS W/O 2020-05-06 00:00:00 Kindra Griggs [facility] SPECIFIC GRAVITY [facility] POCT URINALYSIS W/O 2020-04-18 16:10:00 Ene Nieto [facility] SPECIFIC GRAVITY [facility] POCT URINALYSIS W/O 2020-04-05 00:00:00 Kindra Griggs [facility] SPECIFIC GRAVITY [facility] GLUCOSE 1 HOUR POST 2020-03-15 16:38:00 Kindra Griggs [facility] PRANDIAL [facility] CBC WITH DIFF 2020-03-15 16:38:00 Kindra Griggs [place] [facility] TDAP VACCINE, >11 YRS, IM 2020-03-15 14:22:25 Ene Nieto [facility] POCT URINALYSIS W/O 2020-03-15 00:00:00 Ene Nieto ty [place] SPECIFIC GRAVITY [facility] AGREEMENTS AUTHORIZATIONS 2020-01-25 05:01:00 Doctor Unassigned, [facility] AND IRREVOCABLE [place] [facility] ASSIGNMENTS (FORM 2001) Encounters Start End Encounter Admission Attending Care Care Encounter Source Date/Time Date/Time Type Type Clinicians Facility Department ID 2021-01-14 2021-01-14 Outpatient Maximo NIETO [facility] [id number] Univers 14:30:00 14:30:[address] [facility] 2020-12-30 2020-12-30 [facility] [id number] Univers 09:00[facility]00 [facility] 2020-12-07 2020-12-07 Outpatient OLIVE [facility] [id number] Univers 13:15:00 13:15:[address] [facility] 2020-11-25 2020-11-25 Kindra Wild [facility] [id number] Univers 00:00:00 00:00:00 Cam Erin [id number] i [id number] [phone] Vt dical [address] 2020-11-16 2020-11-16 Outpatient [facility] [id number] Univers 13:20:00 13:20[facility] 2020-07-02 2020-07-02 [facility] [id number] Univers 11:06:01 11:21:01 Ene [place] [id number] ity of [id number] [phone] Vt dical [address] 2020-07-02 2020-07-02 [facility] [id number] 11:06:01 11:21:01 Ene [place] [id number] Visit [place] [id number] Professio [phone] [address] 2020-07-02 2020-07-02 Outpatient Maximo NIETO [facility] [id number] Univers 11:00:00 11:00:00 ENE angel [facility] 2020-07-02 2020-07-02 Orders Doctor FLOR 1.2.840.114 [id number] Univers 00:00:00 00:00:00 Only Unassigned, [place] [id number] [place]y [facility] [place] [facility] [id number] [place] as [phone] [address] 2020-07-02 2020-07-02 Orders Doctor FLOR 1.2.840.114 [id number] 00:00:00 00:00:00 Only Unassigned, [place] [id number] [place] [facility] [id number] 2020-06-14 2020-06-14 Telephone Kindra Griggs [facility] [id number] Univers 00:00:00 00:00:00 Jorge L Khan [id number] i [id number] [phone] Vt dical [address] 2020-06-14 2020-06-14 Orders Doctor RAY [id number] Univers 00:00:00 00:00:00 Only Unassigned, [place] [id number] [facility]y [facility] [place] [facility] [id number] Dima as [phone] [address] 2020-06-14 2020-06-14 [facility] 1.2.840.114 [id number] 00:00:00 00:00:00 Cam [place] [id number] [place] [id number] Professio [phone] [address] 2020-06-14 2020-06-14 Orders Doctor FLOR 1.2.840.114 [id number] 00:00:00 00:00:00 Only Unassigned, [place] [id number] [place] [facility] [id number] [id number] 2020-06-11 2020-06-11 Nurse Nurse, [facility] [id number] Univers 14:14:54 14:37:51 Visit Kindra Griggs [id number] [place]y [id number] [phone] Vt dical [address] 2020-06-11 2020-06-11 Nurse Nurse, [facility] 1.2.840.114 [id number] 14:14:54 14:37:51 Visit Women's Erin [id number] [facility] Ed [id number] Professio [phone] [address] 2020-06-11 2020-06-11 Outpatient R [facility] [id number] Univers 14:00:00 14:00:00 ity of [facility] 2020-06-03 2020-06-04 [facility] Kindra Griggs [facility] [id number] Univers 05:33:00 18:30:00 Encounter Jorge L Khan [id number] ity of [place] [id number] [facility] [place] [phone] [address] 2020-06-03 2020-06-04 [facility] Kindra Griggs [facility] [id number] 05:33:00 18:30:00 Encounter Jorge L Khan [id number] [place] [id number] [place] [id number] [facility] 2020-06-03 2020-06-03 Outpatient P KINDRA GRIGGS [facility] CARLOS [id number] Univers 05:33:00 05:33:00 ity of [facility] 2020-06-03 2020-06-03 Orders Doctor FLOR 1.2.840.114 [id number] Univers 00:00:00 00:00:00 Only Unassigned, [place] [id number] ity [place] [facility] [id number] Dima [phone] [facility] [address] [place] 2020-06-03 2020-06-03 Orders Doctor FLOR 1.2.840.114 [id number] 00:00:00 00:00:00 Only Unassigned, [place] [id number] [place] [facility] [id number] [id number] 2020-05-31 2020-05-31 Laboratory Only, Adc Test [facility] 1.2.840. 114 [id number] Univers 10:58:53 11:13:53 Only Kindra Griggston [id number] [place]y [id number] [phone] [address] 2020-05-31 2020-05-31 Outpatient R [facility] [id number] Univers 10:15:00 10:15:00 ity of [facility] 2020-05-29 2020-05-29 Telephone Kindra Griggs [facility] 1.2.840.114 [id number] Univers 00:00:00 00:00:00 Cam [place] [id number] i [id number] [phone] Vt dical [address] 2020-05-28 2020-05-28 Routine Kindra Griggs [facility] [id number] Univers 16:00:11 16:49:53 Cam [place] [id number] ity of [id number] [phone] Vt dical [address] 2020-05-28 2020-05-28 Routine Kindra Griggs [facility] [id number] 16:00:11 16:49:53 Cam [place] [id number] Visit [place] [id number] Professio [phone] [address] 2020-05-28 2020-05-28 On 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 2, [facility] 1.2.840.114 [id number] Univers 15:53:23 16:08:23 Visit Kindra Griggston 350.1.13.10 [place] [phone] Vt dical [address] 2020-05-28 2020-05-28 Outpatient R KINDRA GRIGGS [facility] [id number] Univers 16:00:00 16:00:00 ity of [facility] 2020-05-23 2020-05-23 Prep For Kindra Griggs [facility] 1.2.840.114 [id number] Univers 00:00:00 00:00:00 Surgery Cam [place] 350.1.13.10 [place] [phone] Vt dical nal 134 [facility] 2020-05-22 2020-05-22 Routine Kindra Griggs [facility] 1.2.980.370 [id number] Univers 16:09:56 17:21:44 Cam [place] 350.1.13.10 [place] [phone] Vt dic[address] 2020-05-22 2020-05-22 Outpatient R [facility] [id number] Univers 16:15:00 16:15:00 ity [facility] 2020-05-20 2020-05-20 Outpatient R KEIRY [facility] [id number] Univers 11:15:00 11:15:00 ENE ity [facility] 2020-05-20 2020-05-20 On 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 2, Adc Lab [facility] 1.2.840.114 [id number] Univers 10:31:01 10:46:01 Visit Ene Nieto 350.1.13.10 [place] [phone] [facility] 353 [facility] 2020-05-06 2020-05-20 Routine [facility] 1.2.801.033 [id number] Univers 15:51:49 10:35:13 Cam [place] 350.1.13.10 [place] [phone] Vt dical nal 134 [facility] 2020-05-06 2020-05-06 Outpatient R [facility] [id number] Univers 16:00:00 16:00:00 ity [facility] 2020-05-02 2020-05-02 Out[facility] [id number] Univers 09:00:00 09:00:00 ity of [facility] 2020-04-19 2020-04-19 Outpatient R KINDRA GRIGGS [facility] [id number] Univers 16:00:00 16:00:00 ity of [facility] 2020-04-18 2020-04-18 [facility] 1.2.346.210 [id number] Univers 11:00:18 11:15:18 Ene [place] 350.1.13.10 [place] [phone] Vt dical nal [address] [place] [address] 2020-04-18 2020-04-18 Outpatient R KEIRY [facility] [id number] Univers 10:45:00 10:45:00 ENE ity of [facility] 2020-04-18 2020-04-18 Letter Kindra Griggs [facility] 1.2.492.003 [id number] Univers 00:00:00 00:00:00 (Out) Cam [place] 350.1.13.10 [place] [phone] Vt dical nal [address] [place] [address] 2020-04-18 2020-04-18 Letter Kindra Griggs [facility] 1.2.386.275 [id number] Univers 00:00:00 00:00:00 (Out) Cam [place] 350.1.13.10 [place] [phone] Vt dical nal [address] [place] [address] 2020-04-05 2020-04-05 Outpatient R KINDRA GRIGGS [facility] [id number] Univers 16:00:00 16:00:00 ity of [facility] 2020-04-05 2020-04-05 Routine [facility] 1.2.250.158 [id number] Univers 14:13:39 14:45:49 Cam [place] 350.1.13.10 [place] [phone] Vt dical nal [address] [place] [address] 2020-04-05 2020-04-05 Outpatient R KINDRA GRIGGS [facility] [id number] Univers 14:15:00 14:15:00 ity of [facility] 2020-03-29 2020-03-29 Outpatient R KINDRA GRIGGS [facility] [id number] Univers 08:15:00 08:15:00 ity of [facility] 2020-03-26 2020-03-26 Outpatient R KINDRA GRIGGS [facility] [id number] Univers 13:00:00 13:00:00 ity of [facility] 2020-03-26 2020-03-26 Telemedici [facility] 1.2.840.114 [id number] Univers 09:24:04 09:39:04 ne Visit Jorge L Khan 350.1.13.10 [place] [phone] Vt dical nal 134 [facility] 2020-03-15 2020-03-15 On 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, Adc [facility] 1.2 .840.114 [id number] Univers 15:37:33 16:07:33 Visit Ene Nieto 350.1.13.10 [place] [phone] Vt dical nal 134 [facility] 2020-03-15 2020-03-15 On 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 2, Adc Lab [facility] 1.2.840.114 [id number] Univers 10:34:25 10:49:25 Visit Kindra Griggs Jorge L Khan 350.1.13.10 [place] [phone] Vt dical nal 353 [facility] 2020-03-15 2020-03-15 Routine Keiry [facility] 1.2.143.635 [id number] Univers 08:54:47 09:40:37 Ene Khan 350.1.13.10 [place] [phone] Vt dical nal 134 [facility] 2020-03-15 2020-03-15 Outpatient R KEIRY [facility] [id number] Univers 08:45:00 08:45:00 ENE ity of [facility] 2020-02-14 2020-02-14 Outpatient R KINDRA GRIGGS [facility] [id number] Univers 11:30:00 11:30:00 ity of [facility] 2020-02-14 2020-02-14 Telemedici [facility] 1.2.840.114 [id number] Univers 08:14:55 08:29:55 ne Visit Jorge L Khan 350.1.13.10 [place] [phone] Me dical nal 134 [facility] 2020-02-05 2020-02-05 Outpatient R KINDRA GRIGGS [facility] [id number] Univers 09:45:00 09:45:00 ity of [facility] 2020-02-04 2020-02-04 Laboratory Lab, Adc Fam Pob I [facility] 1.2. 840.114 [id number] Univers 09:09:34 09:29:34 Only LonamauriceN3TWORKEstephania [facility] 350.1.13.10 ity of [place] 4.2.7.2.686 [place] Professio [phone] Vt dical nal [address] 2020-02-04 2020-02-04 Outpatient R [facility] [id number] Univers 09:00:00 09:00:00 ity of [facility] 2020-02-01 2020-02-01 Telephone Kindra Griggs [facility] 1.2.840.114 [id number] Univers 00:00:00 00:00:00 Jorge L Khan 350.1.13.10 [place] [phone] Vt dical nal 134 [facility] 2020-01-25 2020-01-25 On 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 2, [facility] Lab [place] 1.2.840.114 [id number] Univers 13:28:32 13:43:32 Visit Kindra Griggs Jorge L Khan 350.1.13.10 [place] [phone] Vt dical nal 353 [facility] 2020-01-25 2020-01-25 Outpatient R KINDRA GRIGGS [facility] [id number] Univers 13:30:00 13:30:00 ity of [facility] 2020-01-25 2020-01-25 Orders Doctor FLOR 1.2.840.114 [id number] Univers 00:00:00 00:00:00 Only Unassigned, ALTON 350.1.13.10 [place] [facility] 4.2.7.2.686 Dima as [phone] [address] 2020-01-23 2020-01-23 On 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, Ang[facility] 1.2 .840.114 [id number] Univers 13:49:51 15:04:51 Visit Jatinder Yeh BANK CLERK 350.1.13.10 ity of [facility] 4.2.7.2.686 Dima as MATERNAL [phone] [facility] CHILD [address] [place] [address] 2020-01-23 2020-01-23 Outpatient P [facility] [id number] Univers 14:00:00 14:00:00 ity of [facility] 2020-01-05 2020-01-05 [facility]ici [facility] 1.2.840.114 [id number] Univers 07:55:00 09:38:04 ne Visit Ene Erin 350.1.13.10 ity [facility] [place] [phone] Vt dical [address] 2020-01-05 2020-01-05 Outpatient R KEIRY [facility] [id number] Univers 09:15:00 09:15:00 ENE ity [facility] 2020-01-05 2020-01-05 [facility] 1.2.943.807 [id number] Univers 00:00:00 00:00:00 Management Ene Kahn 350.1.13.10 [place] [phone] Vt dical [address] 2020-01-02 2020-01-02 [facility] [id number] Univers 11:15:00 11:15:00 ENE ity [facility] 2019-12-14 2019-12-14 Telephone Kindra Griggs [facility] 1.2.840.114 [id number] Univers 00:00:00 00:00:00 Cam [place] 350.1.13.10 i [place] [phone] Vt dicsabine nal [address] [place] [address] 2019-12-14 2019-12-14 Telephone Kindra Griggs [facility] 1.2.840.114 [id number] Univers 00:00:00 00:00:00 Cam [place] 350.1.13.10 i [place] [phone] Vt dical nal [address] [place] [address] 2019-12-11 2019-12-11 Outpatient R [facility] [id number] Univers 10:00:00 10:00:00 ity [facility] 2019-12-11 2019-12-11 Telephone Kindra Griggs [facility] 1.2.840.114 [id number] Univers 00:00:00 00:00:00 Cam [place] 350.1.13.10 i [place] [phone] Vt dic[address] 2019-12-07 2019-12-07 Telephone Kindra Griggs [facility] 1.2.840.114 [id number] Univers 00:00:00 00:00:00 Cam [place] 350.1.13.10 i [place] [phone] Vt dical nal [address] [place] [address] 2019-12-04 2019-12-04 Outpatient R KINDRA GRIGGS [facility] [id number] Univers 09:30:00 [facility] Test Description Test Time Test Comments Results Result Comments Source POCT TEST 2020-07-02 17:20:00 Test Item Value Reference Range Interpretation Comme nts POCT PREG (test code = 1605) Negative On board controls acceptable with C Line (test code = 3574) Yes POCT PREG LOT # (test code = 3575) POCT PREG TEST DATE (test code = 3576) Lab Interpretation (test code = 15507-7) Normal [facility] with [id number] 10:06:00 Test Item Value Reference Range Interpretation [...] RDW-SD (test code = 40.2 fL 39-49.9 15452-5) RDW-CV (test code = 12.6 % 12-15.5 788-0) PLT (test code = See_Comment [Automated 777-3) message] The sy stem which generated this result transmitted reference range : 166 - 358 10*3/ ?L. The reference r arlin was not used to interpret this result as normal/abnormal . MPV (test code = 10.4 fL 9.5-12.9 40988-1) NRBC/100 WBC (test See_Comment [Automat ed code = 9299025513) message] The system which generated this result transmitted reference range : 0.0 - 10.0 /100 WBCs. The refer ence range was not u sed to interpret th is result as normal/abnormal . NRBC x10^3 (test code <0.01 See_Comment [Auto mated = 0806734401) message] The s ystem which generated this result transmitted reference range : 10*3/?L. The reference range was not used to interpret this result as normal/abnormal . GRAN MAT (NEUT) % 67.7 % (test code = 770-8) IMM GRAN % (test code 0.20 % = 2925781758) LYMPH % (test code = 26.2 % 736-9) MONO % (test code = 4.6 % 5905-5) EOS % (test code = 1.1 % 713-8) BASO % (test code = 0.2 % 706-2) GRAN MAT x10^3(ANC) 5.41 10*3/uL 1.88-7.09 (test code = 3566308859) IMM GRAN x10^3 (test <0.03 0-0.06 code = 5421706328) LYMPH x10^3 (test code 2.10 10*3/uL 1.32-3.29 = 731-0) MONO x10^3 (test code 0.37 10*3/uL 0.33-0.92 = 742-7) EOS x10^3 (test code = 0.09 10*3/uL 0.03-0.39 711-2) BASO x10^3 (test code <0.03 0.01-0.07 = 704-7) Lab Interpretation Abnormal (test code = 27122-4) [facility] OR RUPINDER ONLY - [id number] 06:12:00 Test Item Value Reference Range Interpretation Comments RPR (Qualitative) (test code = Nonreactive Nonreactive 80142-3) Lab Interpretation (test code = Normal 21466-7) [facility] IMMUNE [id number] 17:33:53 Test Item Value Reference Range Interpretation Comments RHIG CANDIDATE? No- see comment Patient i s not a (test code = candidate for R hIg- 5055) Patient is Rh Positive.Perfor med at [facility] Laboratory Services - [facility] Blood [address] [place] [address]Qrjq Free: [phone] A No. [id number] [facility] HospitalHEPATITIS B SURFACE [id number] 15:45:00 Test Item Value Reference Range Interpretation Comments HBsAg Semi-Quantitative (test code = Negative Negative 5195-3) [facility] AG-AB WITH [id number] 14:03:00 Test Item Value Reference Range Interpretation Comments HIV Negative Negative Semi-quantitative (test code = 38589-1) JUAN FRANCISCO (test code = Non-reactive for HIV-1 JUAN FRANCISCO) antigen and HIV-1/HIV-2 antibodies. ?No laboratory evidence of HIV infection. ?Repeat in 2-4 weeks if acute HIV infection is suspected. [facility] Hospital[facility] Cord [id number] 13:53:00 Test Item Value Reference Range Interpretation Comments VENOUS BASE EXCESS, mEq/L CORD (test code = 4415400200) VENOUS PH, CORD (test 7.25-7.45 code = 6705284601) VENOUS PC02, CORD See_Comment [Automate d message] The (test code = system which ge nerated 7922385641) this result tra nsmitted reference range : 27 - 49 mmHg. The refer ence range was not used to interpret this result as normal/abnormal . VENOUS PO2, CORD (test See_Comment [Aut omated message] The code = 0169759272) system [facility] generated this result tra nsmitted reference range : 17 - 41 mmHg. The refer ence range was not used to interpret this result as normal/abnormal . VENOUS BICARBONATE, See_Comment [Automa slime message] The CORD (test code = system [facility] ch generated 0170949347) this result tra nsmitted reference range : 12 - 29 mEq/L. The refe rence range was not used to interpret this result as normal/abnormal . [facility] HospitalArterial Cord [id number] 13:50:00 Test Item Value Reference Range Interpretation Comments BASE EXCESS, CORD mEq/L (test code = 0765656637) AC PH, CORD (BEAKER) 7.18-7.38 (test code = 5375318593) PC02, CORD (test code See_Comment [Auto mated message] The = 7467081651) system which g enerated this result transmit slime reference range : 32 - 66 mmHg. The refer ence range was not used to interpret this result as normal/abnormal . PO2, CORD (test code See_Comment [Autom ated message] The = 9157409193) system which g enerated this result transmit slime reference range : 10 - 30 mmHg. The refer ence range was not used to interpret this result as normal/abnormal . BICARBONATE, CORD See_Comment [Automate d message] The (test code = system which ge nerated this 1912076375) result transmit slime reference range : 17 - 27 mEq/L. The refe rence range was not used to interpret this result as normal/abnormal . [facility] HospitalType and Screen - ONCE [id number] 13:13:48 Test Item Value Reference Range Interpretation Comments ABO & RH (test code A Positive Performe d at [facility] = 20) Laboratory Serv [facility] Blood Bank[address] [place], [place] [address]Toll Free: [phone] A No. [id number] IAT (test code = Negative Performed a t [facility] 1185) Laboratory [facility] Blood Bank[address] [place], [place] [address]Toll Free: [phone] A No. [id number] [facility] HospitalCBC WITH [id number] 12:08:00 Test Item Value Reference Range Interpretation Comments WBC (test code = See_Comment [Automated 4190-2) message] The sy stem which generated this result transmitted reference range : 4.30 - 11.10 10*3/?L. The reference range was not used to interpret this result as normal/abnormal . RBC (test code = See_Comment L [Automated 269-8) message] The sy stem which generated this [...] RDW-SD (test code = 39.5 fL 39-49.9 63627-4) RDW-CV (test code = 12.6 % 12-15.5 788-0) PLT (test code = See_Comment [Automated 777-3) message] The sy stem which generated this result transmitted reference range : 166 - 358 10*3/ ?L. The reference r arlin was not used to interpret this result as normal/abnormal . MPV (test code = 10.2 fL 9.5-12.9 85111-9) NRBC/100 WBC (test See_Comment [Automat ed code = 1701124575) message] The system which generated this result transmitted reference range : 0.0 - 10.0 /100 WBCs. The refer ence range was not u sed to interpret th is result as normal/abnormal . NRBC x10^3 (test code <0.01 See_Comment [Auto mated = 0173960283) message] The s ystem which generated this result transmitted reference range : 10*3/?L. The reference range was not used to interpret this result as normal/abnormal . GRAN MAT (NEUT) % 61.3 % (test code = 770-8) IMM GRAN % (test code 0.30 % = 1619872696) LYMPH % (test code = 31.8 % 736-9) MONO % (test code = 3.6 % 5905-5) EOS % (test code = 2.4 % 713-8) BASO % (test code = 0.6 % 706-2) GRAN MAT x10^3(ANC) 4.04 10*3/uL 1.88-7.09 (test code = 6479596794) IMM GRAN x10^3 (test <0.03 0-0.06 code = 9951352311) LYMPH x10^3 (test code 2.10 10*3/uL 1.32-3.29 = 731-0) MONO x10^3 (test code 0.24 10*3/uL 0.33-0.92 L = 742-7) EOS x10^3 (test code = 0.16 10*3/uL 0.03-0.39 711-2) BASO x10^3 (test code 0.04 10*3/uL 0.01-0.07 = 704-7) Lab Interpretation Abnormal (test code = 15930-5) [facility] URINALYSIS W/O SPECIFIC [id number] 21:31:00 Test Item Value Reference Range Interpretation [...] code = 3257) N/A Negative - Negative [facility] W/O SPECIFIC [id number] 21:31:00 Test Item Value Reference Range Interpretation [...] code = 3257) N/A Negative - Negative [facility]INAL[facility] W/O SPECIFIC [id number] 21:31:00 Test Item Value Reference Range Interpretation [...] code = 3257) N/A Negative - Negative [facility]>14 WEEKS US [id number] 22:27:09Limited USG for presentation: ?Cephalic Kindrakrysten Griggs MD ?05/22/2020 ?5:27 [facility]14 WEEKS US LIMITED 2020-05-22 22:27:09Limited USG for presentation: ?Cephalic Kindra Griggs MD ?05/22/2020 ?5:27 [facility]Un[facility]PO[facility] URINALYSIS W/O SPECIFIC [id number] 21:32:00 Test Item Value Reference Range Interpretation [...] code = 3257) n/a Negative - Negative [facility] URINALYS[facility] W/O SPECIFIC [id number] 21:32:00 Test Item Value Reference Range Interpretation [...] code = 3257) n/a Negative - Negative [facility]PO[facility] UR[facility]AL[facility] W/O SPECIFIC [id number] 16:10:00 Test Item Value Reference Range Interpretation [...] code = 3257) n/a Negative - Negative [facility]/O SPECIFIC [id number] 19:32:00 Test Item Value Reference Range Interpretation [...] Negative Lab Interpretation (test code = Normal 61488-3) [facility] HospitalGlucose 1 Hour Post [id number] 18:01:00 Test Item Value Reference Range Interpretation Comments GLUC 1 HR (test code = 4735359677) 109 mg/dL 120-170 L Lab Interpretation (test code = Abnormal 78037-9) [facility] with [id number] 17:48:00 Test Item Value Reference Range Interpretation [...] RDW-SD (test code = 41.6 fL 39-49.9 91479-8) RDW-CV (test code = 12.3 % 12-15.5 788-0) PLT (test code = See_Comment [Automated 777-3) message] The sy stem which generated this result transmitted reference range : 166 - 358 10*3/ ?L. The reference r arlin was not used to interpret this result as normal/abnormal . MPV (test code = 9.6 fL 9.5-12.9 88559-4) NRBC/100 WBC (test See_Comment [Automat ed code = 5149298275) message] The system which generated this result transmitted reference range : 0.0 - 10.0 /100 WBCs. The refer ence range was not u sed to interpret th is result as normal/abnormal . NRBC x10^3 (test code <0.01 See_Comment [Auto mated = 9208387132) message] The s ystem which generated this result transmitted reference range : 10*3/?L. The reference range was not used to interpret this result as normal/abnormal . GRAN MAT (NEUT) % 74.3 % (test code = 770-8) IMM GRAN % (test code 0.40 % = 5607023509) LYMPH % (test code = 19.4 % 736-9) MONO % (test code = 3.7 % 5905-5) EOS % (test code = 1.8 % 713-8) BASO % (test code = 0.4 % 706-2) GRAN MAT x10^3(ANC) 5.87 10*3/uL 1.88-7.09 (test code = 4827719634) IMM GRAN x10^3 (test 0.03 10*3/uL 0-0.06 code = 3872575214) LYMPH x10^3 (test code 1.53 10*3/uL 1.32-3.29 = 731-0) MONO x10^3 (test code 0.29 10*3/uL 0.33-0.92 L = 742-7) EOS x10^3 (test code = 0.14 10*3/uL 0.03-0.39 711-2) BASO x10^3 (test code 0.03 10*3/uL 0.01-0.07 = 704-7) Lab Interpretation Abnormal (test code = 59331-9) [facility] W/O SPECIFIC [id number] 14:15:00 Test Item Value Reference Range Interpretation [...] code = 3257) n/a Negative - Negative [facility]
[2022-09-27 14:09] LABS: Absolute Lymphocytes (CBC) 1.3 K/uL (0.7-4.9); Hematocrit 36.2 % (36.0-45.0); Lymphocytes % 23.5 % (15.3-44.8); MCV 96.4 fL (80-100); RBC Red Blood Cell Count 3.75 M/uL (3.86-4.86)
[2022-09-27 14:19] LABS: Urine Blood Negative (Negative); Urine Glucose Negative (Negative); Urine Protein 1+ (Negative); Urine Specific Gravity 1.015 (1.005-1.030)
[2022-09-27] MEDS ORDERED: PROMETHAZINE INJ 25 MG/ML AMP ONE (14:25)
[2022-09-27] MEDS ORDERED: NA CHLORIDE 0.9% 1,000 ML ONE (14:26)
[2022-09-27] MEDS ORDERED: FAMOTIDINE 20 MG/2 ML VIAL IV ONE (14:26)
[2022-09-27] MEDS ORDERED: KETOROLAC 30 MG/ML INJ ONE (14:26)
[2022-09-27 14:42] LABS: Albumin 3.7 g/dL (3.4-5.0); Bilirubin Total 0.8 mg/dL (0.2-1.0); Protein, Total 8.6 g/dL (6.4-8.2)
[2022-09-27 14:46] LABS: Potassium 3.8 mmol/L (3.5-5.1)
--- NOTE | 2022-09-27 15:41 | RAD REPORT ---
EXAM DESCRIPTION: US - Abdomen Exam Limited - 09/27/2022 2:50 pm CLINICAL HISTORY: Abdominal pain. COMPARISON: None. FINDINGS: The gallbladder wall is not thickened. A 1.8 centimeter stone gallbladder fundus. The common bile duct 7 millimeters IMPRESSION: Cholelithiasis without evidence of cholecystitis Mild dilatation of the common bile duct
--- NOTE | 2022-09-27 16:45 | ER ---
Nurse's Notes [facility] Name: Cecelia Polk Age: 32 yrs Sex: Female : 1990 Arrival Date: 09/27/2022 Time: 13:38 Bed 15 Private MD: Diagnosis: Other cholelithiasis without obstruction Presentation: 09/27 14:01 Chief complaint: EMS states: client was eating lunch about 45min ago when she began to kc6 experience burning epigastric pain with lightheaded, dizziness, weakness, and nausea. 4mg of Zofran given en route. Coronavirus screen: Vaccine status: Patient reports receiving the 2nd dose of the covid vaccine. At this time, the client does not indicate any symptoms associated with coronavirus-19. Ebola Screen: No symptoms or risks identified at this time. Initial Sepsis Screen: Does the patient meet any 2 criteria? No. Patient's initial sepsis screen is negative. Does the patient have a suspected source of infection? No. Patient's initial sepsis screen is negative. Risk Assessment: Do you want to hurt yourself or someone else? Patient reports no desire to harm self or others. Onset of symptoms was September 27, 2022. 14:01 Method Of Arrival: EMS: [facility] 6 14:01 Acuity: CRISTOBAL 3 kc6 Triage Assessment: 14:04 General: Appears in no apparent distress. comfortable, Behavior is calm, cooperative, kc6 appropriate for age. Pain: Complains of pain in epigastric area Pain radiates to right upper quadrant and left upper quadrant Pain currently is 6 out of 10 on a pain scale. Quality of pain is described as burning, Pain began 1 hour ago. Is continuous, Also complains of no other associated symptoms. EENT: No signs and/or symptoms were reported regarding the EENT system. Neuro: [place]aval[place] Agitation-Sedation Scale (RASS): 0 - Alert and Calm Level of Consciousness is awake, alert, obeys commands, Oriented to person, place, time, situation, Appropriate for age. Cardiovascular: Capillary refill < 3 seconds. Respiratory: Airway is patent Trachea midline Respiratory effort is even, unlabored, Respiratory pattern is regular, symmetrical. GI: Abdomen is flat, non-distended, Bowel sounds present X 4 quads. Abd is soft and non tender in epigastric area, right upper quadrant and left upper quadrant Abd is soft X 4 quads Reports nausea, Patient currently denies diarrhea, vomiting. : No signs and/or symptoms were reported regarding the genitourinary system. Derm: No signs and/or symptoms reported regarding the dermatologic system. Skin is intact, Skin is pink, warm \T\ dry. Musculoskeletal: No signs and/or symptoms reported regarding the musculoskeletal system. Circulation, motion, and sensation intact. Capillary refill < 3 seconds, Range of motion: intact in all extremities. Historical: - Allergies: 14:04 No Known Allergies; kc6 - Home Meds: 14:04 None [Active]; kc6 - PMHx: 14:04 None; kc6 - PSHx: 14:04 section; X2; kc6 - Immunization history:: Client reports receiving the 2nd dose of the Covid vaccine, Flu vaccine is not up to date. - Social history:: Smoking status: Patient denies any tobacco usage or history of. Screenin:01 [facility] ED Fall Risk Assessment (Adult) History of falling in the last 3 months, kc6 including since admission No falls in past 3 months (0 pts) Confusion or Disorientation No (0 pts) Intoxicated or Sedated No (0 pts) Impaired Gait No (0 pts) Mobility Assist Device Used No (0 pt) Altered Elimination No (0 pt) Score/Fall Risk Level 0 - 2 = Low Risk Oriented to surroundings, Maintained a safe environment, Educated pt \T\ family on fall prevention, incl call for assistance when getting out of bed, Assessed \T\ reinforced patient's understanding of fall precautions, Hourly rounding (assess needs \T\ fall precautionary measures) done. Abuse screen: Denies threats or abuse. Denies injuries from another. Nutritional screening: No deficits noted. Tuberculosis screening: No symptoms or risk factors identified. Assessment: 14:01 Reassessment: please see triage assessment. kc6 15:10 Reassessment: Patient appears in no apparent distress at this time. No changes from kc6 previously documented assessment. Patient and/or family updated on plan of care and expected duration. Pain level reassessed. Patient is alert, oriented x 3, equal unlabored respirations, skin warm/dry/pink. 16:10 Reassessment: Patient appears in no apparent distress at this time. No changes from 6 previously documented assessment. Patient and/or family updated on plan of care and expected duration. Pain level reassessed. Patient is alert, oriented x 3, equal unlabored respirations, skin warm/dry/pink. Vital Signs: 14:01 BP 115 / 62; Pulse 58; Resp 16; Temp 99.8(O); Pulse Ox 99% on R/A; Weight 102.06 kg kc6 (R); Height 5 ft. 6 in. (167.64 cm) (R); Pain 6/10; 14:30 BP 152 / 84; Pulse 89; Resp 20 S; Pulse Ox 100% on R/A; kc6 15:30 BP 144 / 93; Pulse 80; Resp 18 S; Pulse Ox 100% on R/A; kc6 14:01 Body Mass Index 36.32 (102.06 kg, 167.64 cm) kc6 ED Course: 13:38 Patient arrived in ED. kb 13:38 Jenny Bhatia [facility]-C [facility]. kb 13:38 Joshua Sam MD is Attending Physician. kb 13:46 Charisse Vela RN is Primary Nurse. kc6 14:01 Maintain EMS IV. Dressing intact. Good blood return noted. Site clean \T\ dry. Gauge \T\ javier 6 site: 20GLAC. 14:04 Triage completed. kc6 14:04 Arm band placed on. kc6 14:04 Patient has correct armband on for positive identification. Placed in gown. Bed in low kc6 position. Call light in reach. Side rails up X2. 16:53 No provider procedures requiring assistance completed. IV discontinued, intact, kc6 bleeding controlled, No redness/swelling at site. Pressure dressing applied. Administered Medications: 14:30 Drug: Phenergan (promethazine) 25 mg Route: IM; Site: left deltoid; kc6 16:40 Follow up: Response: No adverse reaction; Nausea is decreased kc6 14:37 Drug: NS 0.9% 1000 ml Route: IV; Rate: 1 bolus; Site: left antecubital; kc6 16:39 Follow up: Response: No adverse reaction; IV Status: Completed infusion; IV Intake: kc6 1000ml 14:37 Drug: Pepcid (famotidine) 20 mg Route: IVP; Site: left antecubital; kc6 16:39 Follow up: Response: No adverse reaction kc6 14:37 Drug: TORadol - (ketorolac) 15 mg Route: IVP; Site: left antecubital; kc6 16:39 Follow up: Response: No adverse reaction; Pain is decreased kc6 Medication: 16:53 VIS not applicable for this client. kc6 Intake: 16:39 IV: 1000ml; Total: 1000ml. kc6 Outcome: 16:45 Discharge ordered by MD. tan 16:53 Discharged to home ambulatory. kc6 16:53 Condition: stable 16:53 Discharge instructions given to patient, Instructed on discharge instructions, follow up and referral plans. medication usage, Demonstrated understanding of instructions, follow-up care, medications, Prescriptions given X 2. 16:53 Patient left the ED. kc6 Signatures: Jenny Bhatia, YAMILETH-C STATOR WINDER-Charisse Dean, RN RN kc6
--- NOTE | 2022-09-27 16:45 | EDPHYS ---
Physician Documentation [facility] Name: Cecelia Polk Age: 32 yrs Sex: Female : 1990 Arrival Date: 09/27/2022 Time: 13:38 Bed 15 Private MD: ED Physician Joshua Sam HPI: 09/27 17:31 This 32 yrs old Female presents to ER via EMS with complaints of Epigastric Pain. kb 17:31 The patient presents with abdominal pain in the right upper quadrant. Onset: The kb symptoms/episode began/occurred just prior to arrival. The symptoms do not radiate. Associated signs and symptoms: Pertinent positives: nausea and vomiting, Pertinent negatives: fever. The symptoms are described as constant. Modifying factors: The symptoms are alleviated by nothing, the symptoms are aggravated by nothing. Severity of pain: At its worst the pain was moderate in the emergency department the pain is unchanged. The patient has not experienced similar symptoms in the past. The patient has not recently seen a physician. Historical: - Allergies: 14:04 No Known Allergies; kc6 - Home Meds: 14:04 None [Active]; kc6 - PMHx: 14:04 None; kc6 - PSHx: 14:04 section; X2; kc6 - Immunization history:: Client reports receiving the 2nd dose of the Covid vaccine, Flu vaccine is not up to date. - Social history:: Smoking status: Patient denies any tobacco usage or history of. ROS: 17:31 Constitutional: Negative for fever, chills, and weight loss. kb 17:31 Abdomen/GI: Positive for abdominal pain, nausea and vomiting. 17:31 All other systems are negative. Exam: 17:31 Constitutional: This is a well developed, well nourished patient who is awake, alert, kb and in no acute distress. Head/Face: Normocephalic, atraumatic. ENT: Moist Mucous membranes Cardiovascular: Regular rate and rhythm with a normal S1 and S2. No gallops, murmurs, or rubs. No pulse deficits. Respiratory: Respirations even and unlabored. No increased work of breathing. Talking in full sentences Skin: Warm, dry with normal turgor. Normal color. MS/ Extremity: Pulses equal, no cyanosis. Neurovascular intact. Full, normal range of motion. Neuro: Awake and alert, GCS 15, oriented to person, place, time, and situation. Moves all extremities. Normal gait. Psych: Awake, alert, with orientation to person, place and time. Behavior, mood, and affect are within normal limits. 17:31 Abdomen/GI: Inspection: abdomen appears normal, Bowel sounds: normal, Palpation: soft, in all quadrants, mild abdominal tenderness, in the epigastric area and right upper quadrant. Vital Signs: 14:01 BP 115 / 62; Pulse 58; Resp 16; Temp 99.8(O); Pulse Ox 99% on R/A; Weight 102.06 kg kc6 (R); Height 5 ft. 6 in. (167.64 cm) (R); Pain 6/10; 14:30 BP 152 / 84; Pulse 89; Resp 20 S; Pulse Ox 100% on R/A; kc6 15:30 BP 144 / 93; Pulse 80; Resp 18 S; Pulse Ox 100% on R/A; kc6 14:01 Body Mass Index 36.32 (102.06 kg, 167.64 cm) kc6 MDM: 13:39 Patient medically screened. kb 17:32 Differential diagnosis: cholecystitis, Cholelithiasis, gastritis, gastroesophageal kb reflux disease, pancreatitis. Data reviewed: vital signs, nurses notes. Consideration of Admission/Observation Escalation of care including admission/observation considered. considered, but pain and nausea resolved after treatment. Management of patient was discussed with the following: Dr Sam. Historians other than the Patient: EMS: [facility]. 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 ED course: Patient is a 32-year-old female with no medical history who presents with upper abdominal pain, nausea and vomiting that started just prior to arrival. Exam reveals mild tenderness to right upper quadrant epigastric area. Serum labs and ultrasound completed. Mild dilation of common bile duct on ultrasound with cholelithiasis without cholecystitis. White blood cell count normal. Patient's pain and nausea are resolved after treatment. Patient educated on need for follow-up with general surgeon and on return precautions. Verbal understanding received.. 09/27 13:41 Order name: CBC with Diff kb 09/27 13:41 Order name: CMP kb 09/27 13:41 Order name: Lipase kb 09/27 14:15 Order name: CBC with Automated Diff; Complete Time: 14:21 EDMS 09/27 14:19 Order name: Urine Dipstick-Ancillary; Complete Time: 14:21 EDMS 09/27 14:46 Order name: Comprehensive Metabolic Panel; Complete Time: 14:48 EDMS 09/27 13:41 Order name: Abdomen Limited US kb 09/27 14:46 Order name: Lipase; Complete Time: 14:48 EDMS 09/27 15:06 Order name: Urine --Ancillary (enter results) eb 09/27 15:42 Order name: US; Complete Time: 15:43 EDMS 09/27 13:41 Order name: IV Saline Lock; Complete Time: 14:01 kb 09/27 13:41 Order name: Labs collected and sent; Complete Time: 14:01 kb 09/27 13:41 Order name: Urine Dipstick-Ancillary (obtain specimen); Complete Time: 14:26 kb 09/27 13:41 Order name: Urine Test (obtain specimen); Complete Time: 14:26 kb 09/27 16:37 Order name: PO challenge; Complete Time: 16:39 kb Administered Medications: 14:30 Drug: Phenergan (promethazine) 25 mg Route: IM; Site: left deltoid; kc6 16:40 Follow up: Response: No adverse reaction; Nausea is decreased kc6 14:37 Drug: NS 0.9% 1000 ml Route: IV; Rate: 1 bolus; Site: left antecubital; kc6 16:39 Follow up: Response: No adverse reaction; IV Status: Completed infusion; IV Intake: kc6 1000ml 14:37 Drug: Pepcid (famotidine) 20 mg Route: IVP; Site: left antecubital; kc6 16:39 Follow up: Response: No adverse reaction kc6 14:37 Drug: TORadol - (ketorolac) 15 mg Route: IVP; Site: left antecubital; kc6 16:39 Follow up: Response: No adverse reaction; Pain is decreased kc6 Disposition: 17:46 Co-signature as Attending Physician, Joshua Sam MD I agree with the assessment and kdr plan of care. Disposition Summary: 09/27/22 16:45 Discharge Ordered Location: Home kb Condition: Stable kb Diagnosis - Other cholelithiasis without obstruction kb Followup: kb - With: Emergency Department - When: As needed - Reason: Worsening of condition Followup: kb - With: Private Physician - When: 2 - 3 days - Reason: Recheck today's complaints, Continuance of care, Re-evaluation by your physician Discharge Instructions: - Discharge Summary Sheet kb - Cholelithiasis, [id number] kb Forms: - Medication Reconciliation Form kb - Thank You Letter kb - Antibiotic Education kb - Prescription Opioid Use kb Prescriptions: - dicyclomine 20 mg Oral Tablet - take 1 tablet by ORAL route 4 times per day As needed; 20 tablet; Refills: 0, kb Product Selection Permitted - ondansetron 4 mg Oral - take 1 tablet by SUBLINGUAL route every 8 hours As needed; 15 tablet; Refills: kb 0, Product Selection Permitted Signatures: Dispatcher [employer] EDMS Jenny Bhatia, YAMILETH-C YAMILETH-Joshua Tinoco MD MD kdr Campbell, Kaitlyn, RN RN kc6
[2022-09-27 17:20] VITALS: TEMP 99.8
[2022-09-27 17:21] VITALS: O2SAT 100
[2022-09-27 17:22] VITALS: BP 144/93
== END 2022-09-27 16:53 | disposition home or self-care (01) ==
LOC: ER 13:36
DX: K80.80 Other cholelithiasis without obstruction (principal)
CPT/HCPCS: 96361; 85025; 36415; 81003; 83690; 80053; 76705; 96375; 96372; 96374; 99283; J2550; J7030

== ENCOUNTER 2023-06-08 06:26 | Emergency (ER) | payer BC ==
--- OUTSIDE RECORDS SUMMARY | 2023-06-08 06:34 | XMS REPORT | Continuity of Care Document ---
:1990 Author Organization [facility] t Address [address] [place] [address] Care Team Providers Name Role Phone Pcp, Patient Does Not Have A Primary Care Physician [id number] DOLORES ALCAZAR Attending Clinician Unavailable Nurse, [facility] Attending Clinician Unavailable Dolores Alcazar MD Attending Clinician Odette Rene MD Attending Clinician Sreekanth Jhaveri MD Attending Clinician [facility] Lab Main Attending Clinician Unavailable Room, [facility] Attending Clinician Unavailable Doctor Unassigned, [place] Attending Clinician Unavailable 1, [facility] Room Attending Clinician Unavailable Heidi Vance MD Attending Clinician HEIDI VANCE Attending Clinician Unavailable HEIDI VANCE Attending Clinician Unavailable Ultrasound, Ang-Mfm Attending Clinician Unavailable Lab, Ang - Db Attending Clinician Unavailable Nurse, [facility] Attending Clinician Unavailable Greg Gallo DO Attending Clinician GREG GALLO Attending Clinician Unavailable ENE RICCI Attending Clinician Unavailable KAYLEEN SCHAEFER Attending Clinician Unavailable Kindra Griggs MD Attending Clinician Ene Ricci PA-C Attending Clinician KINDRA GRIGGS Attending Clinician Unavailable Only, Adc Test Attending Clinician Unavailable 2, [facility] Lab Attending Clinician Unavailable Ultrasound, Adc Mfm Attending Clinician Unavailable Lab, [facility] Fam Pob I Attending Clinician Unavailable María STUFFING MACHINE OPERATOREstephania Attending Clinician Jatinder Yeh MD Attending Clinician ADDOLORES SELLERS Admitting Clinician Unavailable Dolores Alcazra MD Admitting Clinician Kindra Griggs MD Admitting Clinician KINDRA GRIGGS Admitting Clinician Unavailable Payers Payer Name Policy Type Policy Number Effective Date Expiration Date S ource [employer] [place] - [id number] 2022 OUT OF STATE 00:00:00 [place] [employer] [id number] 2022 00:00:00 Problems Condition Condition Condition Status Onset Resolution Last Treating Co mments Source Name Details Category Date Date Treatment Clinician Date Liveborn Liveborn Disease Active 2022-08 Unive rs infant, of infant, of 0-17 [place] , , 00 [place] dical born in born in [facility] by by delivery delivery Encounter Encounter Disease Active 2022-08 Uni vers for female for female 0-17 it y of steriliz[place] ster[place]iz[place] 00:[place] 00 Medical procedure procedure Bran ch Polyhydram Polyhydram Disease Active 2022-08 U nivers nios, nios, 0-09 ity of antepartum antepartum 00:00[place] , single , single 00 Medica l or or Branch unspecifie unspecifie d fetus d fetus Excessive Excessive Disease Active 2022-08 Uni vers 0-09 ity of growth growth 00:00: [place] affecting affecting 00 Medi sarbjit , , Br anch antepartum antepartum , single , single or or unspecifie unspecifie d fetus d fetus High-risk High-risk Disease Active Uni vers 9-27 ity of in third in third 00:00: [place] trimester trimester 00 [facility] 34 weeks 34 weeks Disease Active Unive rs gestation gestation 9-27 ity of of of 00:00: [place] 00 [facility] 36 weeks 36 weeks Disease Active Unive rs gestation gestation 9-27 ity of of of 00:00: [place] 00 [facility] 37 weeks 37 weeks Disease Active Unive rs gestation gestation 9-27 ity of of of 00:00: [place] 00 [facility] Insulin Insulin Disease Active Univers controlled controlled 8-30 it y of gestationa gestationa 00:00[place] l diabetes l diabetes 00 Me dical mellitus mellitus [place] (GDM) in (GDM) in third third trimester trimester Previous Previous Disease Active Unive rs 3-21 ity of section section 00:00: [place] complicati complicati 00 Me dical ng ng [place] High-risk High-risk Disease Active Uni vers 3-21 ity of in first in first 00:00: [place] trimester trimester 00 [facility] 7 weeks 7 weeks Disease Active Univers gestation gestation 3-21 ity of of of 00:00: [place] 00 [facility] 39 weeks 39 weeks Disease Active 2019-08 Unive rs gestation gestation 0-26 ity of of of 00:00: [place] 00 [facility] Liveborn Liveborn Disease Active 2019-08 Unive rs , of infant, of 0-26 it y of lackey [place] 00:[place] , , 00 Me dical born in born in [facility] hospital by by delivery delivery Morbid Morbid Disease Active Univers obesity obesity 8-28 ity of with body with body 00:00[place] mass index mass index 00 Me dical of of Branch 40.0-49.9 40.0-49.9 Obesity Obesity Disease Active Univers (BMI (BMI 4-20 ity of 30-39.9) 30-39.9) 00:00: [place] 00 Medical Branch Mild Mild Disease Active Univers intermitte intermitte 4-20 it y of nt asthma nt asthma 00:00: [place] without without 00 Medical complicati complicati Br anch on on Supervisio Supervisio Disease Active U nivers n of other n of other 4-20 it y of normal normal 00:00: [place] 00 [facility] Previous Previous Disease Active 2020-0 Unive rs 4-20 ity of section section 00:00: [address] Allergies, Adverse Reactions, Alerts Allergy Allergy Status Severity Reaction(s) Onset Inactive Treating Comm ents Source Name Type Date Date Clinician NO KNOWN Drug Active Univers ALLERGIE Class ity of S [facility] [place] Social History Social Habit Start Date Stop Date Quantity Comments Source ASSERTION 2022-09-19 [facility] 00:00:00 [facility] [place] Gender identity Universit y of [facility] [place] Sexual orientation Univer sity [facility] Alcohol intake 2023-06-01 2023-06-01 Ex-drinker [facility] 00:00:00 00:00:00 (finding) [facility] [place] Exposure to 2023-01-09 2023-01-19 Not sure [facility] SARS-CoV-2 (event) 00:00:00 11:04:00 [facility] [place] History of Social 2022-10-27 2022-10-27 Univers ity of function 00:00:00 00:00:00 [facility] [place] Tobacco use and 2022-10-27 2022-10-27 Smokeless Universit y of exposure 00:00:00 00:00:00 tobacco non-user [facility] Sex Ass[birth year] At [birth year] Universit y of 00:00:00 00:00:00 [facility] [place] Smoking Status Start Date Stop Date Source Never smoked tobacco [facility] Medications Ordered Filled Start Stop Current Ordering Indication Dosage Frequency Signature Comments Components Source Medication Medication Date Date Medication? Clinician (SIG) Name Name ibuprofen 2022-08 Yes 600mg 600 mg, Univ ers (IBU) 0-18 Oral, Q6H, ity of tablet 600 17:00: First dose [place] mg 00 [place] Wed [facility] 05/26/23 Branch at 1200, Until Discontinu ed, Routine ibuprofen 2022-08 Yes 600mg 600 mg, Univ ers (IBU) 0-18 Oral, Q6H, ity of tablet 600 17:00: First dose [place] mg 00 on [facility] 05/26/23 [place] at 1200, Until Discontinu ed, Routine 2022-08- No Take by Unive rs vit 0-18 10-18 mouth. ity of no.124/iron 11:26: 00:00 [place] /folic 39 :00 Medical ( Branch VITAMIN ORAL) 2022-08 [facility] 10-18 mouth. ity of no.124/iron 11:26: 00:00 [place] /folic 39 :00 Medical ( Branch VITAMIN ORAL) HYDROcodone 2022-08 Yes 1{tbl} 1 tablet, Univers -acetaminop 0-18 Oral, ity of hen (NORCO 02:00: Q6HPRN, [place] 5) 5-325 mg 00 Starting Medi sarbjit tablet 1 on [facility] Branch tablet 05/25/23 at 2100, Until Discontinu ed, Routine, Pain (scale 4-6), Alternate with Ibuprofen HYDROcodone 2022-08 Yes 2{tbl} 2 tablet, Univers -acetaminop 0-18 Oral, ity of hen (NORCO 02:00: Q6HPRN, [place] 5) 5-325 mg 00 Starting Medi sarbjit tablet 2 on Branch tablet 05/25/23 at 2100, Until Discontinu ed, Routine, Pain (scale 7-10), Alternate with Ibuprofen HYDROcodone 2022-08 Yes 1{tbl} 1 tablet, Univers -acetaminop 0-18 Oral, ity of hen (NORCO 02:00: Q6HPRN, [place] 5) 5-325 mg 00 Starting Medi sarbjit tablet 1 on Branch tablet 05/25/23 at 2100, Until Discontinu ed, Routine, Pain (scale 4-6), Alternate with Ibuprofen HYDROcodone 2022-08 Yes 2{tbl} 2 tablet, Univers -acetaminop 0-18 Oral, ity of hen (NORCO 02:00: Q6HPRN, [place] 5) 5-325 mg 00 Starting Medi sarbjit tablet 2 on Branch tablet 05/25/23 at 2100, Until Discontinu ed, Routine, Pain (scale 7-10), Alternate with Ibuprofen ibuprofen 2022-08 Yes [id number] 600mg Take 1 Univers 600 mg 0-18 tablet by ity of tablet 00:00: mouth [place] 00 every 6 Medical (six) Branch hours. gabapentin 2022-08 Yes [id number] 300mg Take 1 Univers 300 mg 0-18 capsule by ity of capsule 00:00: mouth in [place] 00 the Medical morning Branch and 1 capsule at noon and 1 capsule in the evening. 2022-08 Yes [id number] 1{tbl} Take 1 Univers vitamin 0-18 tablet by ity of w/FA tablet 00:00: mouth in [place] 00 the Medical morning. Branch ibuprofen 2022-08 Yes [id number] 600mg Take 1 Univers 600 mg 0-18 tablet by ity of tablet 00:00: mouth [place] 00 every 6 Medical (six) Branch hours. gabapentin 2022-08 Yes [id number] 300mg Take 1 Univers 300 mg 0-18 capsule by ity of capsule 00:00: mouth in [place] 00 the Medical morning Branch and 1 capsule at noon and 1 capsule in the evening. 2022-08 Yes [id number] 1{tbl} Take 1 Univers vitamin 0-18 tablet by ity of w/FA tablet 00:00: mouth in [place] 00 the Medical morning. Branch ibuprofen 2022-08 Yes [id number] 600mg Take 1 Univers 600 mg 0-18 tablet by ity of tablet 00:00: mouth [place] 00 every 6 Medical (six) Branch hours. gabapentin 2022-08 Yes [id number] 300mg Take 1 Univers 300 mg 0-18 capsule by ity of capsule 00:00: mouth in [place] 00 the Medical morning Branch and 1 capsule at noon and 1 capsule in the evening. 2022-08 Yes [id number] 1{tbl} Take 1 Univers vitamin 0-18 tablet by ity of w/FA tablet 00:00: mouth in [place] 00 the Medical morning. Branch ibuprofen 2022-08 Yes [id number] 600mg Take 1 Univers 600 mg 0-18 tablet by ity of tablet 00:00: mouth [place] 00 every 6 Medical (six) Branch hours. gabapentin 2022-08 Yes [id number] 300mg Take 1 Univers 300 mg 0-18 capsule by ity of capsule 00:00: mouth in [place] 00 the Medical morning Branch and 1 capsule at noon and 1 capsule in the evening. 2022- Yes [id number] 1{tbl} Take 1 Univers vitamin 0-18 tablet by ity of w/FA tablet 00:00: mouth in [place] 00 the Medical morning. Branch ibuprofen 2022-08 Yes [id number] 600mg Take 1 Univers 600 mg 0-18 tablet by ity of tablet 00:00: mouth [place] 00 every 6 Medical (six) Branch hours. gabapentin 2022-08 Yes [id number] 300mg Take 1 Univers 300 mg 0-18 capsule by ity of capsule 00:00: mouth in [place] 00 the Medical morning Branch and 1 capsule at noon and 1 capsule in the evening. 2022-08 Yes [id number] 1{tbl} Take 1 Univers vitamin 0-18 tablet by ity of w/FA tablet 00:00: mouth [place] 00 the Medical morning. Branch HYDROcodone 2022-08- Yes [id number] 1{tbl} Take 1 U nivers -acetaminop 0-18 10-26 tablet by it y of hen 5-325 00:00: 04:59 mouth [place] mg tablet 00 :00 every 6 Medical (six) Branch hours as needed for Pain (scale 4-6) (Alternate with Ibuprofen) for up to 7 days. Indication s: acute pain HYDROcodone 2022-08- Yes [id number] 1{tbl} Take 1 U nivers -acetaminop 0-18 10-26 tablet by it y of hen 5-325 00:00: 04:59 mouth [place] mg tablet 00 :00 every 6 Medical (six) Branch hours as needed for Pain (scale 4-6) (Alternate with Ibuprofen) for up to 7 days. Indication s: acute pain HYDROcodone 2022-08- Yes [id number] 1{tbl} Take 1 U nivers -acetaminop 0-18 10-26 tablet by it y of hen 5-325 00:00: 04:59 mouth [place] mg tablet 00 :00 every 6 Medical (six) Branch hours as needed for Pain (scale 4-6) (Alternate with Ibuprofen) for up to 7 days. Indication s: acute pain HYDROcodone 2022-08- Yes [id number] 1{tbl} Take 1 U nivers -acetaminop 0-18 10-26 tablet by it y of hen 5-325 00:00: 04:59 mouth [place] mg tablet 00 :00 every 6 Medical (six) Branch hours as needed for Pain (scale 4-6) (Alternate with Ibuprofen) for up to 7 days. Indication s: acute pain HYDROcodone 2022-08- Yes [id number] 1{tbl} Take 1 U nivers -acetaminop 0-18 10-26 tablet by it y of hen 5-325 00:00: 04:59 mouth [place] mg tablet 00 :00 every 6 Medical (six) Branch hours as needed for Pain (scale 4-6) (Alternate with Ibuprofen) for up to 7 days. Indication s: acute pain acetaminoph 2022-08 No 1000mg 1,000 mg, Univers en ADULT 0-17 IV ity of (OFIRMEV) 20:00: 21:17 Infusion, [place] injection 00 :00 at 400 Medical 1,000 mg mL/hr Branch Administer over 15 Minutes, ONCE, 1 dose, On Wed05/25/23 at 1500, Routine
Indicatio n: Perioperat chantal Patient gabapentin 2022-08 Yes 300mg 300 mg, Uni vers (NEURONTIN) 0-17 Oral, TID, it y of capsule 300 19:00: First dose [place] mg 00 on Wed [facility] 05/25/23 Branch at 1400, Until Discontinu ed, Routine gabapentin 2022-08 Yes 300mg 300 mg, Uni vers (NEURONTIN) 0-17 Oral, TID, it y of capsule 300 19:00: First dose [place] mg 00 on Wed [facility] 05/25/23 Branch at 1400, Until Discontinu ed, Routine ketorolac 2022-08 No 30mg 30 mg, [facility] rs (TORADOL) 05-26 Slow IV ity of injection 17:00: 11:07 Push, Q6H, [place] 30 mg 00 :00 4 doses, Medical First dose Branch on Wed05/25/23 at 1200, Last dose on Wed05/26/23 at 0600, Routine lactated 2022-08 No 1000mL at 125 [facility] ers ringers IV 0 10-17 mL/hr, ity of infusion 15:45: 16:56 1,000 mL, [place] 1,000 mL 00 :44 IV Medical Infusion, Branch ONCE, 1 dose, On Wed05/25/23 at 1045, Routine diphenhydrA 2022-08 Yes 25mg 25 mg, Univ ers MINE 0-17 Slow IV ity of (BENADRYL) 14:50: Push, [place] injection 30 Q6HPRN, Medical 25 mg Starting Branch on Wed05/25/23 at 0950, Until Discontinu ed, Routine, Itching diphenhydrA 2022-08 Yes 25mg 25 mg, Univ ers MINE 0-17 Oral, ity of (BENADRYL) 14:50: Q6HPRN, [place] tablet 25 30 Starting Medica l mg on Wed05/25/23 at 0950, Until Discontinu ed, Routine, Sleep, Itching ondansetron 2022-08 Yes 4mg 4 mg, Slow Univers (ZOFRAN 0-17 IV Push, ity of (PF)) 14:50: Q8HPRN, [place] injection 4 30 Starting Medi sarbjit mg on Wed05/25/23 at 0950, Until Discontinu ed, Routine, Nausea and Vomiting (N/V) bisacodyL 2022-08 Yes 10mg 10 mg, Univer s (DULCOLAX) 0-17 Rectal, ity of suppository 14:50: QDAILYPRN, [place] 10 mg 30 Starting Medical on Wed05/25/23 at 0950, Until Discontinu ed, Routine, Constipati on simethicone 2022-08 Yes 160mg 160 mg, Un neal (GAS RELIEF 0-17 Oral, ity of (SIMETHICON 14:50: PC+HSPRN, [place] E)) 30 Starting Medical chewable on Wed tablet 160 05/25/23 mg at 0950, Until Discontinu ed, Routine, Gas docusate 2022-08 Yes 200mg 200 mg, Unive rs (COLACE) 0-17 Oral, ity of capsule 200 14:50: QDAILYPRN, [place] mg 30 Starting Medical on Wed05/25/23 at 0950, Until Discontinu ed, Routine, Constipati on magnesium 2022-08 Yes 30mL 30 mL, Univer s hydroxide 0-17 Oral, ity of (MILK OF 14:50: QDAILYPRN, [place] MAGNESIA) 30 Starting Medica l 400 mg/5 mL on Wed suspension 05/25/23 30 mL at 0950, Until Discontinu ed, Routine, Constipati on lactated 2022-08 Yes 1000mL at 125 Unive rs ringers IV 0-17 mL/hr, ity of infusion 14:50: 1,000 mL, [place] 1,000 mL 30 IV Medical Infusion, Branch PRN, 1 dose, Starting on Wed05/25/23 at 0950, Until Discontinu ed, Routine diphenhydrA 2022-08 Yes 25mg 25 mg, Univ ers MINE 0-17 Slow IV ity of (BENADRYL) 14:50: Push, [place] injection 30 Q6HPRN, Medical 25 mg Starting Branch on Wed05/25/23 at 0950, Until Discontinu ed, Routine, Itching diphenhydrA 2022-08 Yes 25mg 25 mg, Univ ers MINE 0-17 Oral, ity of (BENADRYL) 14:50: Q6HPRN, [place] tablet 25 30 Starting Medica l mg on Wed05/25/23 at 0950, Until Discontinu ed, Routine, Sleep, Itching ondansetron 2022-08 Yes 4mg 4 mg, Slow Univers (ZOFRAN 0-17 IV Push, ity of (PF)) 14:50: Q8HPRN, [place] injection 4 30 Starting Medi sarbjit mg on Wed05/25/23 at 0950, Until Discontinu ed, Routine, Nausea and Vomiting (N/V) bisacodyL 2022-08 Yes 10mg 10 mg, Univer s (DULCOLAX) 0-17 Rectal, ity of suppository 14:50: QDAILYPRN, [place] 10 mg 30 Starting Medical on Wed05/25/23 at 0950, Until Discontinu ed, Routine, Constipati on simethicone 2022-08 Yes 160mg 160 mg, Un neal (GAS RELIEF 0-17 Oral, ity of (SIMETHICON 14:50: PC+HSPRN, [place] E)) 30 Starting Medical chewable on Wed tablet 160 05/25/23 mg at 0950, Until Discontinu ed, Routine, Gas docusate 2022-08 Yes 200mg 200 mg, Unive rs (COLACE) 0-17 Oral, ity of capsule 200 14:50: QDAILYPRN, [place] mg 30 Starting Medical on Wed05/25/23 at 0950, Until Discontinu ed, Routine, Constipati on magnesium 2022-08 Yes 30mL 30 mL, Univer s hydroxide 0-17 Oral, ity of (MILK OF 14:50: QDAILYPRN, Dmia as MAGNESIA) 30 Starting Medica l 400 mg/5 mL on Wed Branch suspension 05/25/23 30 mL at 0950, Until Discontinu ed, Routine, Constipati on lactated 2022-08 Yes 1000mL at 125 Unive rs ringers IV 0-17 mL/hr, ity of infusion 14:50: 1,000 mL, [place] 1,000 mL 30 IV Medical Infusion, Branch PRN, 1 dose, Starting on Wed05/25/23 at 0950, Until Discontinu ed, Routine acetaminoph 2022-08- No IV Unive rs en ADULT 0-05-25 Infusion, ity o f (OFIRMEV) 13:59: 14:50 Administer [place] injection 00 :13 over 15 Medical Minutes, Branch ONCE INTRA PROCEDURE, Starting on Wed05/25/23 at 0859, Until Wed05/25/23 at 0950, Routine, Intra-op oxytocin 2022-08- No IV Univers (PITOCIN) 005-25 Infusion, ity of 30 units in 13:51: 14:50 CONTINUOUS [place] NS 500 mL 00 :13 PRN, Medical IV infusion Starting Bran ch on Wed05/25/23 at 0851, Until Wed05/25/23 at 0950, Routine, Intra-op NaCl 0.9% 2022-08- No IV Univers (NS) IV 05-25 Infusion, ity of infusion 13:50: 14:50 CONTINUOUS [place] 00 :13 PRN, Medical Starting Branch on Wed05/25/23 at 0850, Until Wed05/25/23 at 0950, Routine, Intra-op sodium 2022-08 Yes PRN, Univers chloride 0-17 Starting ity of 0.9 % 13:35: on e [place] irrigation 00 05/25/23 Medic al solution at 0835, Branch Until Discontinu ed, Intra-op sodium 2022-08 Yes PRN, Univers chloride 0-17 Starting ity of 0.9 % 13:35: on e [place] irrigation 00 05/25/23 Medic al solution at 0835, Branch Until Discontinu ed, Intra-op ondansetron 2022-08- No Slow IV Un neal (ZOFRAN 0-17 10-17 Push, ONCE ity o f (PF)) 13:26: 14:50 INTRA [place] injection 00 :13 PROCEDURE, Medi sarbjit Starting Branch on Wed05/25/23 at 0826, Until Wed05/25/23 at 0950, Routine, Intra-op PHENYLephri 2022-08- No Intravenou Univers ne 1000 0-17 10-17 s, ity of mcg/10 mL 13:18: 14:50 CONTINUOUS [place] in 0.9% 00 :13 PRN, Medical NaCl Starting Branch syringe on Wed05/25/23 at 0818, Until Wed05/25/23 at 0950, Routine, Intra-op ePHEDrine 2022-08- No Intravenou U nivers 25 mg/5 mL 0-17 10-17 s, ONCE ity o f (5 mg/mL) 13:16: 14:50 INTRA [place] syringe 00 :13 PROCEDURE, Medica l Starting Branch on Wed05/25/23 at 0816, Until Wed05/25/23 at 0950, Routine, Intra-op morpHINE PF 2022-08- No Epidural, Univers (DURAMORPH- 005-25 ONCE INTRA i ty of PF) 13:15: 14:50 PROCEDURE, [place] injection 00 :13 Starting Medica l on Tue Branch 05/25/23 at 0815, Until Wed05/25/23 at 0950, Routine, Intra-op bupivacaine 2022-08- No Intraspina Univers -dextrose-w 0-17 10-17 l, ONCE ity of ater-pf 13:15: 14:50 INTRA [place] (MARCAINE 00 :13 PROCEDURE, Medi sarbjit SPINAL Starting Branch (PF)) 0.75 on Tue % (7.5 05/25/23 mg/mL) at 0815, injection Until Wed05/25/23 at 0950, Routine, Intra-op ceFAZolin 2022-08- No IV Univers (ANCEF) 0-17 10-17 Piggyback, ity o f injection 13:09: 14:50 ONCE INTRA [place] 00 :13 PROCEDURE, Medical Starting Branch on Wed05/25/23 at 0809, Until Wed05/25/23 at 0950, DARIA, Intra-op lactated 2022-08- No IV Univers ringers IV 0-17 10-17 Infusion, ity of infusion 13:05: 14:50 CONTINUOUS [place] 00 :13 PRN, Medical Starting Branch on Wed05/25/23 at 0805, Until Wed05/25/23 at 0950, Routine, Intra-op acetaminoph 2022-08- No 650mg 650 mg, U nivers en 0-17 10-17 Oral, ity of (TYLENOL) 11:15: 12:30 ONCE, 1 [place] tablet 650 00 :00 dose, On Medic al mg Wed Branch 05/25/23 at 0615, Routine lactated 2022-08- No 1000mL at 125 Univ ers ringers IV 0-17 10-17 mL/hr, ity of infusion 11:15: 14:59 1,000 mL, [place] 1,000 mL 00 :09 IV Medical Infusion, Branch CONTINUOUS , Starting on Wed05/25/23 at 0615, Until Wed05/25/23 at 0959, Routine lactated 2022-08- No 500mL at 999 [facility] rs ringers IV 0-17 10-17 mL/hr, 500 it y of infusion 11:15: 12:52 mL, IV [place] 500 mL 00 :00 Infusion, Medical ONCE, 1 Branch dose, On Wed05/25/23 at 0615, Routine sodium 2022-08- No 30mL 30 mL, Univers citrate-cit 0-17 10-17 Oral, ity of rach acid 11:02: 12:52 PRE-PROCED [place] (BICITRA) 54 :00 URE ONCE, Medic al 500-334 1 dose, Branch mg/5 mL Starting solution 30 on Wed mL 05/25/23 at 0602, Until [place] 05/27/23 at 2359, Routine, Surgery/Pr ocedure 2022-08 Yes Take by Univer s vit 0-17 mouth. ity of no.124/iron 05:57: [place] /folic 56 Medical ( Branch VITAMIN ORAL) ACCU-CHEK Yes Univers SOFTCLIX 9-10 ity of LANCETS 00:00: [place] Misc 00 Medical Branch ACCU-CHEK Yes Univers SOFTCLIX 9-10 ity of LANCETS 00:00: [facility] 00 Medical Branch ACCU-CHEK 2023-0 Yes Univers SOFTCLIX 9-10 ity of LANCETS 00:00: [facility] 00 Medical Branch ACCU-CHEK 2023-0 Yes Univers SOFTCLIX 9-10 ity of LANCETS 00:00: [facility] 00 Medical Branch ACCU-CHEK 2023-0 Yes Univers SOFTCLIX 9-10 ity of LANCETS 00:00: [facility] 00 Medical Branch ACCU-CHEK 2023-0 Yes Univers SOFTCLIX 9-10 ity of LANCETS 00:00: [facility] 00 Medical Branch ACCU-CHEK 2023-0 Yes Univers SOFTCLIX 9-10 ity of LANCETS 00:00: [facility] 00 Medical Branch ACCU-CHEK 2023-0 Yes Univers SOFTCLIX 9-10 ity of LANCETS 00:00: [facility] 00 Medical Branch ACCU-CHEK 2023-0 Yes Univers SOFTCLIX 9-10 ity of LANCETS 00:00: [facility] 00 Medical Branch ACCU-CHEK 2023-0 Yes Univers SOFTCLIX 9-10 ity of LANCETS 00:00: [facility] 00 Medical Branch ACCU-CHEK 2023-0 Yes Univers SOFTCLIX 9-10 ity of LANCETS 00:00: [facility] 00 Medical Branch ACCU-CHEK 2023-0 Yes Univers SOFTCLIX 9-10 ity of LANCETS 00:00: [facility] 00 Medical Branch ACCU-CHEK 2023-0 Yes Univers SOFTCLIX 9-10 ity of LANCETS 00:00: [facility] 00 Medical Branch ACCU-CHEK 2023-0 Yes Univers SOFTCLIX 9-10 ity of LANCETS 00:00: [facility] 00 Medical Branch ACCU-CHEK 2023-0 Yes Univers SOFTCLIX 9-10 ity of LANCETS 00:00: [facility] 00 Medical Branch ACCU-CHEK 2023-0 Yes Univers SOFTCLIX 9-10 ity of LANCETS 00:00: [facility] 00 Medical Branch ACCU-CHEK 2023-0 2023- No Univers SOFTCLIX 9-10 10-18 ity of LANCETS 00:00: 00:00 [facility] 00 :00 Medical Branch ACCU-CHEK 2022-0 2022- No Univers SOFTCLIX 9-10 10-18 ity of LANCETS 00:00: 00:00 [facility] 00 :00 Medical Branch Insulin 0 Yes Use as Univers Syringes, 8-30 directed ity of Disposable, 00:00: [place] 1 mL Syrg 00 Medical Branch insulin NPH Yes Inject 15 U nivers (NOVOLIN N 8-30 units ity of NPH U-100 00:00: subcutaneo [place] INSULIN) 00 usly every Medic al 100 unit/mL night at Bran ch injection 10 pm. BD VEO 2022-0 Yes 10mg Take 10 mg Unive rs INSULIN 8-30 by mouth. ity of SYRINGE UF 00:00: [place] 1 mL 31 00 Medical gauge x Branch 15/64" Syrg Insulin 0 Yes Use as Univers Syringes, 8-30 directed ity of Disposable, 00:00: [place] 1 mL Syrg Medical Branch insulin NPH 0 Yes Inject 15 U nivers (NOVOLIN N 8-30 units ity of NPH U-100 00:00: [place]cut[place]o [place] INSULIN) 00 usly every Medic al 100 unit/mL night at Bran ch injection 10 pm. Insulin 0 Yes Use as Univers Syringes, 8-30 directed ity of Disposable, 00:00: [place] 1 mL Syrg 00 Medical Branch insulin NPH 0 Yes Inject 15 U nivers (NOVOLIN N 8-30 units ity of NPH U-100 00:00: [place]cut[place]o [place] INSULIN) 00 usly every Medic al 100 unit/mL night at Bran ch injection 10 pm. BD VEO 2022-0 Yes 10mg Take 10 mg Unive rs INSULIN 8-30 by mouth. ity of SYRINGE UF 00:00: [place] 1 mL 31 00 Medical gauge x Branch 15/64" Syrg Insulin 0 Yes Use as Univers Syringes, 8-30 directed ity of Disposable, 00:00: [place] 1 mL Syrg 00 Medical Branch insulin NPH 0 Yes Inject 15 U nivers (NOVOLIN N 8-30 units ity of NPH U-100 00:00: [place] INSULIN[place] 00 usly every Medic al 100 unit/mL night at Bran ch injection 10 pm. BD VEO 2022-0 Yes 10mg Take 10 mg Unive rs INSULIN 8-30 by mouth. ity of [place]INGE UF 00:00: [place] 1 mL 31 00 Medical gauge x Branch 15/64" Syrg Insulin 0 Yes Use as [facility] Syringes, 8-30 directed ity of Disposable, 00:00: [place] 1 mL Syrg 00 Medical Branch insulin NPH 0 Yes Inject 15 U nivers (NOVOLIN N 8-30 units ity of NPH U-100 00:00: [place] INSULIN[place] 00 usly every Medic al 100 unit/mL night at Bran [facility] injection 10 pm. BD VEO 2022-0 Yes 10mg Take 10 mg Unive rs INSULIN 8-30 by mouth. ity of [facility] UF 00:00: [place] 1 mL 31 00 Medical gauge x Branch 1564" Syrg Insulin 0 Yes Use as [facility] Syringes, 8-30 directed ity of Disposable, 00:00: [place] 1 mL Syrg 00 Medical Branch insulin NPH 0 Yes Inject 15 U nivers (NOVOLIN N 8-30 units ity of NPH U-100 00:00: [place] INSULIN[place] 00 usly every Medic al 100 unit/mL night at Bran [facility] injection 10 pm. BD VEO 2022-0 Yes 10mg Take 10 mg Un[facility] rs INSULIN 8-30 by mouth. ity of [facility] UF 00:00: [place] 1 mL 31 00 Medical gauge x Branch 1564" Syrg Insulin 0 Yes Use as [facility] Syringes, 8-30 directed ity of Disposable, 00:00: [place] 1 mL Syrg 00 Medical Branch insulin NPH 0 Yes Inject 15 U nivers (NOVOLIN N 8-30 units ity of NPH U-100 00:00: [place] INSULIN[place] 00 usly every Medic al 100 unit/mL night at Bran [facility] injection 10 pm. BD VEO 2022-0 Yes 10mg Take 10 mg Unive rs INSULIN 8-30 by mouth. ity of [facility] UF 00:00: [place] 1 mL 31 00 Medical gauge x Branch 15/64" Syrg Insulin 0 Yes Use as [facility] Syringes, 8-30 directed ity of Disposable, 00:00: [place] 1 mL Syrg 00 Medical Branch insulin NPH Yes Inject 15 U nivers (NOVOLIN N 8-30 units ity of NPH U-100 00:00: [place] INSULIN[place] 00 usly every Medic al 100 unit/mL night at Bran [facility] injection 10 pm. BD VEO 2022-0 Yes 10mg Take 10 mg Unive rs INSULIN 8-30 by mouth. ity of [facility] UF 00:00: [place] 1 mL 31 00 Medical gauge x Branch 15/64" Syrg Insulin 0 Yes Use as [facility] Syringes, 8-30 directed ity of Disposable, 00:00: [place] 1 mL Syrg 00 Medical Branch insulin NPH Yes Inject 15 U nivers (NOVOLIN N 8-30 units ity of NPH U-100 00:00: [place] INSULIN[place] 00 usly every Medic al 100 unit/mL night at Bran [facility] injection 10 pm. BD VEO 2022-0 Yes 10mg Take 10 mg Unive rs INSULIN 8-30 by mouth. ity of [facility] UF 00:00: [place] 1 mL 31 Medical gauge x Branch 1564" Syrg Insulin 0 Yes Use as [facility] Syringes, 8-30 directed ity of Disposable, 00:00: [place] 1 mL Syrg 00 Medical Branch insulin NPH Yes Inject 15 U nivers (NOVOLIN N 8-30 units ity of NPH U-100 00:00: [place] INSULIN) 00 usly every Medic al 100 unit/mL night at Bran [facility] injection 10 pm. BD VEO 2022-0 Yes 10mg Take 10 mg Unive rs INSULIN 8-30 by mouth. ity of [facility] UF 00:00: [place] 1 mL 31 00 Medical gauge x Branch 15/64" Syrg Insulin 0 Yes Use as [facility] Syringes, 8-30 directed ity of Disposable, 00:00: [place] 1 mL Syrg 00 Medical Branch insulin NPH 0 Yes Inject 15 U nivers (NOVOLIN N 8-30 units ity of NPH U-100 00:00: [place] INSULIN) 00 usly every Medic al 100 unit/mL night at Bran [facility] injection 10 pm. BD VEO 2022-0 Yes 10mg Take 10 mg Unive rs INSULIN 8-30 by mouth. ity of [facility] UF 00:00: [place] 1 mL 31 00 Medical gauge x Branch 15/64" Syrg Insulin 0 Yes Use as [facility] Syringes, 8-30 directed ity of Disposable, 00:00: [place] 1 mL Syrg 00 Medical Branch insulin NPH 0 Yes Inject 15 U nivers (NOVOLIN N 8-30 units ity of NPH U-100 00:00: [place] INSULIN) 00 usly every Medic al 100 unit/mL night at Bran [facility] injection 10 pm. BD VEO 2022-0 Yes 10mg Take 10 mg Unive rs INSULIN 8-30 by mouth. ity of [facility] UF 00:00: [place] 1 mL 31 Medical gauge x Branch 15/64" Syrg Insulin 0 Yes Use as [facility] Syringes, 8-30 directed ity of Disposable, 00:00: [place] 1 mL Syrg 00 Medical Branch insulin NPH 0 Yes Inject 15 U nivers (NOVOLIN N 8-30 units ity of NPH U-100 00:00: [place] INSULIN) 00 usly every Medic al 100 unit/mL night at Bran [facility] injection 10 pm. BD VEO 2022-0 Yes 10mg Take 10 mg Unive rs INSULIN 8-30 by mouth. ity of [facility] UF 00:00: [place] 1 mL 31 00 Medical gauge x Branch 15/64" Syrg Insulin 0 Yes Use as [facility] Syringes, 8-30 directed ity of Disposable, 00:00: [place] 1 mL Syrg 00 Medical Branch insulin NPH 0 Yes Inject 15 U nivers (NOVOLIN N 8-30 units ity of NPH U-100 00:00: [place] INSULIN) 00 usly every Medic al 100 unit/mL night at [facility] injection 10 pm. BD VEO 2022-0 Yes 10mg Take 10 mg [facility] rs INSULIN 8-30 by mouth. ity of [facility] UF 00:00: [place] 1 mL 31 00 Medical gauge x Branch 15/64" Syrg Insulin 0 Yes Use as [facility] Syringes, 8-30 directed ity of Disposable, 00:00: [place] 1 mL Syrg 00 Medical Branch insulin NPH 0 Yes Inject 15 U nivers (NOVOLIN N 8-30 units ity of NPH U-100 00:00: [place] INSULIN) 00 usly every Medic al 100 unit/mL night at Bran [facility] injection 10 pm. BD VEO 2022-0 Yes 10mg Take 10 mg Un[facility] rs INSULIN 8-30 by mouth. ity of [facility] UF 00:00: [place] 1 mL 31 00 Medical gauge x Branch 15/64" Syrg Insulin Yes Use as [facility] Syringes, 8-30 directed ity of Disposable, 00:00: [place] 1 mL Syrg 00 Medical Branch insulin NPH Yes Inject 15 U nivers (NOVOLIN N 8-30 units ity of NPH U-100 00:00: [place] INSULIN) 00 usly every Medic al 100 unit/mL night at Bran [facility] injection 10 pm. BD VEO 2022-0 Yes 10mg Take 10 mg Unive rs INSULIN 8-30 by mouth. ity of [facility] UF 00:00: [place] 1 mL 31 00 Medical gauge x Branch 1564" Syrg Insulin Yes Use as [facility] Syringes, 8-30 directed ity of Disposable, 00:00: [place] 1 mL Syrg 00 Medical Branch insulin NPH Yes Inject 15 U nivers (NOVOLIN N 8-30 units ity of NPH U-100 00:00: [place] INSULIN) 00 usly every Medic al 100 unit/mL night at Bran [facility] injection 10 pm. BD VEO 2022-0 Yes 10mg Take 10 mg Un[facility] rs INSULIN 8-30 by mouth. ity of [facility] UF 00:00: [place] 1 mL 31 00 Medical gauge x Branch 1564" Syrg Insulin Yes Use as [facility] Syringes, 8-30 directed ity of Disposable, 00:00: [place] 1 mL Syrg 00 Medical Branch Insulin 0 Yes Use as [facility] Syringes, 8-30 directed ity of Disposable, 00:00: [place] 1 mL Syrg 00 Medical Branch insulin NPH Yes Inject 15 U nivers (NOVOLIN N 8-30 units ity of NPH U-100 00:00: [place] INSULIN) 00 usly every Medic al 100 unit/mL night at Bran [facility] injection 10 pm. insulin NPH 2022-0 2022- Yes 15U inject 15 [facility] (NOVOLIN N 8-30 10-30 Units ity of NPH U-100 00:00: 04:59 [place] INSULIN) 00 :00 skin every Medic al 100 unit/mL evening Branc h injection for 60 days. Insulin 2022- No Use as [facility] Syringes, 8 10-18 directed ity o f Disposable, 00:00: 00:00 [place] 1 mL Syrg 00 :00 Medical Branch insulin NPH 2022- No Inject 15 [facility] (NOVOLIN N 8-30 10-18 units ity of NPH U-100 00:00: 00:00 [place] INS[place] 00 :00 usly every Medic al 100 unit/mL night at Bran [facility] injection 10 pm. BD VEO 2022- No 10mg Take 10 mg Univ ers INSULIN 8 10-18 by mouth. ity of [facility] UF 00:00: 00:00 [place] 1 mL 31 00 :00 Medical gauge x Branch 1564" Syrg Insulin 2022- No Use as [facility] Syringes, 04-07 1018 directed ity o f Disposable, 00:00: 00:00 [place] 1 mL Syrg 00 :00 [facility] Branch insulin NPH 2022- No Inject 15 [facility] (NOVOLIN N 8-30 10-18 units ity of NPH U-100 00:00: 00:00 [place] INSULIN) 00 :00 usly every Medic al 100 unit/mL night at Bran ch injection 10 pm. BD VEO 2022- No 10mg Take 10 mg [facility] ers INSULIN 04-07 10-18 by mouth. ity of [facility] UF 00:00: 00:00 [place] 1 mL 31 00 :00 Medical gauge x Branch 15/64" Syrg insulin NPH 2022- No 15U inject 15 [facility] (NOVOLIN N 8-30 08-30 Units ity of NPH U-100 00:00: 00:00 [place] INSULIN) 00 :00 skin every Medic al 100 unit/mL evening Branc h injection for 60 days. Alcohol Yes Apply to Univer s Swabs 8-16 area(s) 4 ity of (ALCOHOL 00:00: (four) [place] WIPES) PadM 00 times Medical daily. Branch Blood-Gluco 2023-0 Yes Check Unive rs se Meter 8-16 blood ity of (ACCU-CHEK 00:00: [place] 4 [place] GUIDE 00 times a Medical GLUCOSE day Branch METER) Misc lancets 0 Yes Check Univer s gauge Misc 8-16 blood ity of 00:00: sugar 4 [place] 00 times a Medical day Branch blood sugar 0 Yes Check Unive rs diagnostic 8-16 blood ity of (ACCU-CHEK 00:00: glucose 4 [place] GUIDE TEST 00 times a Medica l STRIPS) day Branch strip Alcohol 0 Yes Apply to Univer s Swabs 8-16 area(s) 4 ity of (ALCOHOL 00:00: (four) [place] WIPES) PadM 00 times Medical daily. Branch Blood-Gluco Yes Check Unive rs se Meter 8-16 blood ity of (ACCU-CHEK 00:00: [place] 4 [place] GU[place] 00 times a Medical GLUCOSE day Branch METER) Misc lancets Yes Check Univer s gauge Misc 8-16 blood ity of 00:00: sugar 4 [place] 00 times a Medical day Branch blood sugar 0 Yes Check Unive rs diagnostic 8-16 blood ity of (ACCU-CHEK 00:00: glucose 4 [place] GUIDE TEST 00 times a Medica l STRIPS) day Branch strip Alcohol 0 Yes Apply to Univer s Swabs 8-16 area(s) 4 ity of (ALCOHOL 00:00: (four) [place] WIPES) PadM 00 times Medical daily. Branch Blood-Gluco 0 Yes Check Unive rs se Meter 8-16 blood ity of (ACCU-CHEK 00:00: [place] 4 [place] GU[place] 00 times a Medical GLUCOSE day Branch METER) Misc lancets 33 0 Yes Check Univer s gauge Misc 8-16 blood ity of 00:00: sugar 4 [place] 00 times a Medical day Branch blood sugar 0 Yes Check Unive rs diagnostic 8-16 blood ity of (ACCU-CHEK 00:00: glucose 4 [place] GUIDE TEST 00 times a Medica l STRIPS) day Branch strip Alcohol 0 Yes Apply to Univer s Swabs 8-16 area(s) 4 ity of (ALCOHOL 00:00: (four) [place] WIPES) PadM 00 times Medical daily. Branch Blood-Gluco 2022-0 Yes Check Unive rs se Meter 8-16 blood ity of (ACCU-CHEK 00:00: [place] 4 [place] GU[place] 00 times a Medical GLUCOSE day Branch METER) Misc lancets 33 0 Yes Check Univer s gauge Misc 8-16 blood ity of 00:00: sugar 4 [place] 00 times a Medical day Branch blood sugar 2022-0 Yes Check Unive rs diagnostic 8-16 blood ity of (ACCU-CHEK 00:00: glucose 4 [place] GUIDE TEST 00 times a Medica l STRIPS) day Branch strip Alcohol 0 Yes Apply to Univer s Swabs 8-16 area(s) 4 ity of (ALCOHOL 00:00: (four) [place] WIPES) PadM 00 times Medical daily. Branch Blood-Gluco 0 Yes Check Unive rs se Meter 8-16 blood ity of (ACCU-CHEK 00:00: [place] 4 [place] GU[place] 00 times a Medical GLUCOSE day Branch METER) Misc lancets 0 Yes Check Univer s gauge Misc 8-16 blood ity of 00:00: sugar 4 [place] 00 times a Medical day Branch blood sugar 0 Yes Check Unive rs diagnostic 8-16 blood ity of (ACCU-CHEK 00:00: glucose 4 [place] GUIDE TEST 00 times a Medica l STRIPS) day Branch strip Alcohol 2022-0 Yes Apply to Univer s Swabs 8-16 area(s) 4 ity of (ALCOHOL 00:00: (four) [place] WIPES) PadM 00 times Medical daily. Branch Blood-Gluco 2022-0 Yes Check Unive rs se Meter 8-16 blood ity of (ACCU-CHEK 00:00: [place] 4 [place] GU[place] 00 times a Medical GLUCOSE day Branch METER) Misc lancets 33 2022-0 Yes Check Univer s gauge Misc 8-16 blood ity of 00:00: sugar 4 [place] 00 times a Medical day Branch blood sugar 2022-0 Yes Check Unive rs diagnostic 8-16 blood ity of (ACCU-CHEK 00:00: glucose 4 [place] GUIDE TEST 00 times a Medica l STRIPS) day Branch strip Alcohol 2023-0 Yes Apply to Univer s Swabs 8-16 area(s) 4 ity of (ALCOHOL 00:00: (four) [place] WIPES) PadM 00 times Medical daily. Branch Blood-Gluco Yes Check Unive rs se Meter 8-16 blood ity of (ACCU-CHEK 00:00: sugar 4 [place] GU[place] 00 times a Medical GLUCOSE day Branch METER) Misc lancets Yes Check Univer s gauge Misc 8-16 blood ity of 00:00: sugar 4 [place] 00 times a Medical day Branch blood sugar 0 Yes Check Unive rs diagnostic 8-16 blood ity of (ACCU-CHEK 00:00: glucose 4 [place] GUIDE TEST 00 times a Medica l STRIPS) day Branch strip Alcohol Yes Apply to Univer s Swabs 8-16 area(s) 4 ity of (ALCOHOL 00:00: (four) [place] WIPES) PadM 00 times Medical daily. Branch Blood-Gluco Yes Check Unive rs se Meter 8-16 blood ity of (ACCU-CHEK 00:00: sugar 4 [place] GU[place] 00 times a Medical GLUCOSE day Branch METER) Misc lancets Yes Check Univer s gauge Misc 8-16 blood ity of 00:00: sugar 4 [place] 00 times a Medical day Branch blood sugar 0 Yes Check Unive rs diagnostic 8-16 blood ity of (ACCU-CHEK 00:00: glucose 4 [place] GUIDE TEST 00 times a Medica l STRIPS) day Branch strip Alcohol Yes Apply to Univer s Swabs 8-16 area(s) 4 ity of (ALCOHOL 00:00: (four) [place] WIPES) PadM 00 times Medical daily. Branch Blood-Gluco Yes Check Unive rs se Meter 8-16 blood ity of (ACCU-CHEK 00:00: sugar 4 [place] GU[place] 00 times a Medical GLUCOSE day Branch METER) Misc lancets 0 Yes Check Univer s gauge Misc 8-16 blood ity of 00:00: sugar 4 [place] 00 times a Medical day Branch blood sugar 0 Yes Check Unive rs diagnostic 8-16 blood ity of (ACCU-CHEK 00:00: glucose 4 [place] GUIDE TEST 00 times a Medica l STRIPS) day Branch strip Alcohol 0 Yes Apply to Univer s Swabs 8-16 area(s) 4 ity of (ALCOHOL 00:00: (four) [place] WIPES) PadM 00 times Medical daily. Branch Blood-Gluco 2022-0 Yes Check Unive rs se Meter 8-16 blood ity of (ACCU-CHEK 00:00: sugar 4 [place] GU[place] 00 times a Medical GLUCOSE day Branch METER) Misc lancets 33 2022-0 Yes Check Univer s gauge Misc 8-16 blood ity of 00:00: sugar 4 [place] 00 times a Medical day Branch blood sugar 0 Yes Check Unive rs diagnostic 8-16 blood ity of (ACCU-CHEK 00:00: glucose 4 [place] GUIDE TEST 00 times a Medica l STRIPS) day Branch strip Alcohol 0 Yes Apply to Univer s Swabs 8-16 area(s) 4 ity of (ALCOHOL 00:00: (four) [place] WIPES) PadM 00 times Medical daily. Branch Blood-Gluco 2022-0 Yes Check Unive rs se Meter 8-16 blood ity of (ACCU-CHEK 00:00: sugar 4 [place] GU[place] 00 times a Medical GLUCOSE day Branch METER) Misc lancets 33 2022-0 Yes Check Univer s gauge Misc 8-16 blood ity of 00:00: sugar 4 [place] 00 times a Medical day Branch blood sugar 2022-0 Yes Check Unive rs diagnostic 8-16 blood ity of (ACCU-CHEK 00:00: glucose 4 [place] GUIDE TEST 00 times a Medica l STRIPS) day Branch strip Alcohol 2022-0 Yes Apply to Univer s Swabs 8-16 area(s) 4 ity of (ALCOHOL 00:00: (four) [place] WIPES) PadM 00 times Medical daily. Branch Blood-Gluco 2022-0 Yes Check Unive rs se Meter 8-16 blood ity of (ACCU-CHEK 00:00: sugar 4 [place] GU[place] 00 times a Medical GLUCOSE day Branch METER) Misc lancets 33 2022-0 Yes Check Univer s gauge Misc 8-16 blood ity of 00:00: sugar 4 [place] 00 times a Medical day Branch blood sugar 2023-0 Yes Check Unive rs diagnostic 8-16 blood ity of (ACCU-CHEK 00:00: glucose 4 [place] GUIDE TEST 00 times a Medica l STRIPS) day Branch strip Alcohol 0 Yes Apply to Univer s Swabs 8-16 area(s) 4 ity of (ALCOHOL 00:00: (four) [place] WIPES) PadM 00 times Medical daily. Branch Blood-Gluco Yes Check Unive rs se Meter 8-16 blood ity of (ACCU-CHEK 00:00: sugar 4 [place] GU[place] 00 times a Medical GLUCOSE day Branch METER) Misc lancets 33 0 Yes Check Univer s gauge Misc 8-16 blood ity of 00:00: sugar 4 [place] 00 times a Medical day Branch blood sugar 0 Yes Check Unive rs diagnostic 8-16 blood ity of (ACCU-CHEK 00:00: glucose 4 [place] GUIDE TEST 00 times a Medica l STRIPS) day Branch strip Alcohol 0 Yes Apply to Univer s Swabs 8-16 area(s) 4 ity of (ALCOHOL 00:00: (four) [place] WIPES) PadM 00 times Medical daily. Branch Blood-Gluco Yes Check Unive rs se Meter 8-16 blood ity of (ACCU-CHEK 00:00: sugar 4 [place] GUIDE 00 times a Medical GLUCOSE day Branch METER) Misc lancets 33 0 Yes Check Univer s gauge Misc 8-16 blood ity of 00:00: sugar 4 [place] 00 times a Medical day Branch blood sugar 0 Yes Check Unive rs diagnostic 8-16 blood ity of (ACCU-CHEK 00:00: glucose 4 [place] GUIDE TEST 00 times a Medica l STRIPS) day Branch strip Alcohol 0 Yes Apply to Univer s Swabs 8-16 area(s) 4 ity of (ALCOHOL 00:00: (four) [place] WIPES) PadM 00 times Medical daily. Branch Blood-Gluco 0 Yes Check Unive rs se Meter 8-16 blood ity of (ACCU-CHEK 00:00: sugar 4 [place] GU[place] 00 times a Medical GLUCOSE day Branch METER) Misc lancets 33 0 Yes Check Univer s gauge Misc 8-16 blood ity of 00:00: sugar 4 [place] 00 times a Medical day Branch blood sugar 0 Yes Check Unive rs diagnostic 8-16 blood ity of (ACCU-CHEK 00:00: glucose 4 [place] GUIDE TEST 00 times a Medica l STRIPS) day Branch strip Alcohol Yes Apply to Univer s Swabs 8-16 area(s) 4 ity of (ALCOHOL 00:00: (four) [place] WIPES) PadM 00 times Medical daily. Branch Blood-Gluco Yes Check Unive rs se Meter 8-16 blood ity of (ACCU-CHEK 00:00: sugar 4 [place] GU[place] 00 times a Medical GLUCOSE day Branch METER) Misc lancets 33 0 Yes Check Univer s gauge Misc 8-16 blood ity of 00:00: sugar 4 [place] 00 times a Medical day Branch blood sugar Yes Check Unive rs diagnostic 8-16 blood ity of (ACCU-CHEK 00:00: glucose 4 [place] GUIDE TEST 00 times a Medica l STRIPS) day Branch strip Alcohol 0 Yes Apply to Univer s Swabs 8-16 area(s) 4 ity of (ALCOHOL 00:00: (four) [place] WIPES) PadM 00 times Medical daily. Branch Blood-Gluco Yes Check Unive rs se Meter 8-16 blood ity of (ACCU-CHEK 00:00: sugar 4 [place] GU[place] 00 times a Medical GLUCOSE day Branch METER) Misc lancets 33 2022-0 Yes Check Univer s gauge Misc 8-16 blood ity of 00:00: sugar 4 [place] 00 times a Medical day Branch blood sugar 0 Yes Check Unive rs diagnostic 8-16 blood ity of (ACCU-CHEK 00:00: glucose 4 [place] GUIDE TEST 00 times a Medica l STRIPS) day Branch strip Alcohol 0 Yes Apply to Univer s Swabs 8-16 area(s) 4 ity of (ALCOHOL 00:00: (four) [place] WIPES) PadM 00 times Medical daily. Branch Blood-Gluco Yes Check Unive rs se Meter 8-16 blood ity of (ACCU-CHEK 00:00: sugar 4 [place] GU[place] 00 times a Medical GLUCOSE day Branch METER) Misc lancets 33 2022-0 Yes Check Univer s gauge Misc 8-16 blood ity of 00:00: sugar 4 [place] 00 times a Medical day Branch blood sugar 2022-0 Yes Check Unive rs diagnostic 8-16 blood ity of (ACCU-CHEK 00:00: glucose 4 [place] GUIDE TEST 00 times a Medica l STRIPS) day Branch strip Alcohol Yes Apply to Univer s Swabs 8-16 area(s) 4 ity of (ALCOHOL 00:00: (four) [place] WIPES) PadM 00 times Medical daily. Branch Blood-Gluco 0 Yes Check Unive rs se Meter 8-16 blood ity of (ACCU-CHEK 00:00: [place] 4 [place] GU[place] 00 times a Medical GLUCOSE day Branch METER) Misc lancets 0 Yes Check Univer s gauge Misc 8-16 blood ity of 00:00: sugar 4 [place] 00 times a Medical day Branch blood sugar 0 Yes Check Unive rs diagnostic 8-16 blood ity of (ACCU-CHEK 00:00: glucose 4 [place] GUIDE TEST 00 times a Medica l STRIPS) day Branch strip Alcohol 0 Yes Apply to Univer s Swabs 8-16 area(s) 4 ity of (ALCOHOL 00:00: (four) [place] WIPES) PadM 00 times Medical daily. Branch Blood-Gluco 2022-0 Yes Check Unive rs se Meter 8-16 blood ity of (ACCU-CHEK 00:00: [place] 4 [place] GU[place] 00 times a Medical GLUCOSE day Branch METER) Misc lancets 33 2022-0 Yes Check Univer s gauge Misc 8-16 blood ity of 00:00: sugar 4 [place] 00 times a Medical day Branch blood sugar 2022-0 Yes Check Unive rs diagnostic 8-16 blood ity of (ACCU-CHEK 00:00: glucose 4 [place] GUIDE TEST 00 times a Medica l STRIPS) day Branch strip Blood-Gluco 2022-0 2022- No Check Univ ers se Meter 8-16 10-18 blood ity of (ACCU-CHEK 00:00: 00:00 sugar 4 [place] GUIDE 00 :00 times a Medical GLUCOSE day Branch METER) Misc lancets 33 2022- No Check Unive rs gauge Misc 03-2418 blood ity of 00:00: 00:00 sugar 4 [place] 00 :00 times a Medical day Branch blood sugar 2022- No Check Univ ers diagnostic 03-2418 blood ity of (ACCU-CHEK 00:00: 00:00 glucose 4 [place] GUIDE TEST 00 :00 times a Medica l STRIPS) day Branch strip Alcohol 2022- No Apply to Unive rs Swabs 16 18 area(s) 4 ity of (ALCOHOL 00:00: 00:00 (four) [place] WIPES) PadM 00 :00 times Medical daily. Branch Blood-Gluco 2022- No Check Univ ers se Meter 03-24 blood ity of (ACCU-CHEK 00:00: 00:00 sugar 4 [place] GUIDE 00 :00 times a Medical GLUCOSE day Branch METER) Misc lancets 33 2022- No Check Unive rs gauge Misc 03-2418 blood ity of 00:00: 00:00 sugar 4 [place] 00 :00 times a Medical day Branch blood sugar 2022- No Check Univ ers diagnostic 03-2418 blood ity of (ACCU-CHEK 00:00: 00:00 glucose 4 [place] GUIDE TEST 00 :00 times a Medica l STRIPS) day Branch strip Alcohol 2022- No Apply to Unive rs Swabs 03-2418 area(s) 4 ity of (ALCOHOL 00:00: 00:00 (four) [place] WIPES) PadM 00 :00 times Medical daily. Branch ferrous 0 Yes [id number] 325mg Take 1 Un neal sulfate 8-02 tablet by ity of (IRON, 00:00: mouth in [place] FERROUS 00 the Medical SULFATE,) morning Branch 325 mg (65 and 1 mg iron) tablet in tablet the evening. ferrous 0 Yes [id number] 325mg Take 1 Un neal sulfate 8-02 tablet by ity of (IRON, 00:00: mouth in [place] FERROUS 00 the Medical SULFATE,) morning Branch 325 mg (65 and 1 mg iron) tablet in tablet the evening. ferrous 0 Yes [id number] 325mg Take 1 Un neal sulfate 8-02 tablet by ity of (IRON, 00:00: mouth in [place] FERROUS 00 the Medical SULFATE,) morning Branch 325 mg (65 and 1 mg iron) tablet in tablet the evening. ferrous 0 Yes [id number] 325mg Take 1 Un neal sulfate 8-02 tablet by ity of (IRON, 00:00: mouth in [place] FERROUS 00 the Medical SULFATE,) morning Branch 325 mg (65 and 1 mg iron) tablet in tablet the evening. ferrous 0 Yes [id number] 325mg Take 1 Un neal sulfate 8-02 tablet by ity of (IRON, 00:00: mouth in [place] FERROUS 00 the Medical SULFATE,) morning Branch 325 mg (65 and 1 mg iron) tablet in tablet the evening. ferrous Yes [id number] 325mg Take 1 Un neal sulfate 8-02 tablet by ity of (IRON, 00:00: mouth in [place] FERROUS 00 the Medical SULFATE,) morning Branch 325 mg (65 and 1 mg iron) tablet in tablet the evening. ferrous Yes [id number] 325mg Take 1 Un neal sulfate 8-02 tablet by ity of (IRON, 00:00: mouth in [place] FERROUS 00 the Medical SULFATE,) morning Branch 325 mg (65 and 1 mg iron) tablet in tablet the evening. ferrous Yes [id number] 325mg Take 1 Un neal sulfate 8-02 tablet by ity of (IRON, 00:00: mouth in [place] FERROUS 00 the Medical SULFATE,) morning Branch 325 mg (65 and 1 mg iron) tablet in tablet the evening. ferrous 0 Yes [id number] 325mg Take 1 Uni vers sulfate 8-02 tablet by ity of (IRON, 00:00: mouth in [place] FERROUS 00 the Medical SULFATE,) morning Branch 325 mg (65 and 1 mg iron) tablet in tablet the evening. ferrous 0 Yes [id number] 325mg Take 1 Uni vers sulfate 8-02 tablet by ity of (IRON, 00:00: mouth in [place] FERROUS 00 the Medical SULFATE,) morning Branch 325 mg (65 and 1 mg iron) tablet in tablet the evening. ferrous 0 Yes [id number] 325mg Take 1 Uni vers sulfate 8-02 tablet by ity of (IRON, 00:00: mouth in [place] FERROUS 00 the Medical SULFATE,) morning Branch 325 mg (65 and 1 mg iron) tablet in tablet the evening. ferrous 2023-0 Yes [id number] 325mg Take 1 Uni vers sulfate 8-02 tablet by ity of (IRON, 00:00: mouth in [place] FERROUS 00 the Medical SULFATE,) morning Branch 325 mg (65 and 1 mg iron) tablet in tablet the evening. ferrous 2023-0 Yes [id number] 325mg Take 1 Uni vers sulfate 8-02 tablet by ity of (IRON, 00:00: mouth in [place] FERROUS 00 the Medical SULFATE,) morning Branch 325 mg (65 and 1 mg iron) tablet in tablet the evening. ferrous 2023-0 Yes [id number] 325mg Take 1 Uni vers sulfate 8-02 tablet by ity of (IRON, 00:00: mouth in [place] FERROUS 00 the Medical SULFATE,) morning Branch 325 mg (65 and 1 mg iron) tablet in tablet the evening. ferrous 2022-0 Yes [id number] 325mg Take 1 Uni vers sulfate 8-02 tablet by ity of (IRON, 00:00: mouth in [place] FERROUS 00 the Medical SULFATE,) morning Branch 325 mg (65 and 1 mg iron) tablet in tablet the evening. ferrous 2022-0 Yes [id number] 325mg Take 1 Uni vers sulfate 8-02 tablet by ity of (IRON, 00:00: mouth in [place] FERROUS 00 the Medical SULFATE,) morning Branch 325 mg (65 and 1 mg iron) tablet in tablet the evening. ferrous 3-0 Yes [id number] 325mg Take 1 Uni vers sulfate 8-02 tablet by ity of (IRON, 00:00: mouth in [place] FERROUS 00 the Medical SULFATE,) morning Branch 325 mg (65 and 1 mg iron) tablet in tablet the evening. ferrous 2023-0 Yes [id number] 325mg Take 1 Uni vers sulfate 8-02 tablet by ity of (IRON, 00:00: mouth in [place] FERROUS 00 the Medical SULFATE,) morning Branch 325 mg (65 and 1 mg iron) tablet in tablet the evening. ferrous 2023-0 Yes [id number] 325mg Take 1 Uni vers sulfate 8-02 tablet by ity of (IRON, 00:00: mouth in [place] FERROUS 00 the Medical SULFATE,) morning Branch 325 mg (65 and 1 mg iron) tablet in tablet the evening. ferrous 2023-0 Yes [id number] 325mg Take 1 Uni vers sulfate 8-02 tablet by ity of (IRON, 00:00: mouth in [place] FERROUS 00 the Medical SULFATE,) morning Branch 325 mg (65 and 1 mg iron) tablet in tablet the evening. ferrous 0 Yes [id number] 325mg Take 1 Uni vers sulfate 8-02 tablet by ity of (IRON, 00:00: mouth in [place] FERROUS 00 the Medical SULFATE,) morning Branch 325 mg (65 and 1 mg iron) tablet in tablet the evening. ferrous 0 Yes [id number] 325mg Take 1 Uni vers sulfate 8-02 tablet by ity of (IRON, 00:00: mouth in [place] FERROUS 00 the Medical SULFATE,) morning Branch 325 mg (65 and 1 mg iron) tablet in tablet the evening. ferrous 0 Yes [id number] 325mg Take 1 Un neal sulfate 8-02 tablet by ity of (IRON, 00:00: mouth in [place] FERROUS 00 the Medical SULFATE,) morning Branch 325 mg (65 and 1 mg iron) tablet in tablet the evening. ferrous 0 Yes [id number] 325mg Take 1 Un neal sulfate 8-02 tablet by ity of (IRON, 00:00: mouth in [place] FERROUS 00 the Medical SULFATE,) morning Branch 325 mg (65 and 1 mg iron) tablet in tablet the evening. ferrous 0 Yes [id number] 325mg Take 1 Un neal sulfate 8-02 tablet by ity of (IRON, 00:00: mouth in [place] FERROUS 00 the Medical SULFATE,) morning Branch 325 mg (65 and 1 mg iron) tablet in tablet the evening. ferrous 0 Yes [id number] 325mg Take 1 Un neal sulfate 8-02 tablet by ity of (IRON, 00:00: mouth in [place] FERROUS 00 the Medical SULFATE,) morning Branch 325 mg (65 and 1 mg iron) tablet in tablet the evening. ferrous 0 Yes [id number] 325mg Take 1 Un neal sulfate 8-02 tablet by ity of (IRON, 00:00: mouth in [place] FERROUS 00 the Medical SULFATE,) morning Branch 325 mg (65 and 1 mg iron) tablet in tablet the evening. ferrous 0 Yes [id number] 325mg Take 1 Un neal sulfate 8-02 tablet by ity of (IRON, 00:00: mouth in [place] FERROUS 00 the Medical SULFATE,) morning Branch 325 mg (65 and 1 mg iron) tablet in tablet the evening. ferrous Yes [id number] 325mg Take 1 Un neal sulfate 8-02 tablet by ity of (IRON, 00:00: mouth in [place] FERROUS 00 the Medical SULFATE,) morning Branch 325 mg (65 and 1 mg iron) tablet in tablet the evening. ferrous Yes [id number] 325mg Take 1 Un neal sulfate 8-02 tablet by ity of (IRON, 00:00: mouth in [place] FERROUS 00 the Medical SULFATE,) morning Branch 325 mg (65 and 1 mg iron) tablet in tablet the evening. ferrous Yes [id number] 325mg Take 1 Un neal sulfate 8-02 tablet by ity of (IRON, 00:00: mouth in [place] FERROUS 00 the Medical SULFATE,) morning Branch 325 mg (65 and 1 mg iron) tablet in tablet the evening. ferrous Yes [id number] 325mg Take 1 Un neal sulfate 8-02 tablet by ity of (IRON, 00:00: mouth in [place] FERROUS 00 the Medical SULFATE,) morning Branch 325 mg (65 and 1 mg iron) tablet in tablet the evening. Yes Take by Univer s vit 4-19 mouth. ity of no.124/iron 11:20: [place] /folic 25 Medical ( Branch VITAMIN ORAL) Yes Take by Univer s vit 4-19 mouth. ity of no.124/iron 11:20: [place] /folic 25 Medical ( Branch VITAMIN ORAL) Yes Take by Univer s vit 4-19 mouth. ity of no.124/iron 11:20: [place] /folic 25 Medical ( Branch VITAMIN ORAL) Yes Take by Univer s vit 4-19 mouth. ity of no.124/iron 11:20: [place] /folic 25 Medical ( Branch VITAMIN ORAL) Yes Take by Univer s vit 4-19 mouth. ity of no.124/iron 11:20: [place] /folic 25 Medical ( Branch VITAMIN ORAL) Yes Take by Univer s vit 4-19 mouth. ity of no.124/iron 11:20: [place] /folic 25 Medical ( Branch VITAMIN ORAL) Yes Take by Univer s vit 4-19 mouth. ity of no.124/iron 11:20: [place] /folic 25 Medical ( Branch VITAMIN ORAL) Yes Take by Univer s vit 4-19 mouth. ity of no.124/iron 11:20: [place] /folic 25 Medical ( Branch VITAMIN ORAL) Yes Take by Univer s vit 4-19 mouth. ity of no.124/iron 11:20: [place] /folic 25 Medical ( Branch VITAMIN ORAL) Yes Take by Univer s vit 4-19 mouth. ity of no.124/iron 11:20: [place] /folic 25 Medical ( Branch VITAMIN ORAL) Yes Take by Univer s vit 4-19 mouth. ity of no.124/iron 11:20: [place] /folic 25 Medical ( Branch VITAMIN ORAL) Yes Take by Univer s vit 4-19 mouth. ity of no.124/iron 11:20: [place] /folic 25 Medical ( Branch VITAMIN ORAL) Yes Take by Univer s vit 4-19 mouth. ity of no.124/iron 11:20: [place] /folic 25 Medical ( Branch VITAMIN ORAL) Yes Take by Univer s vit 4-19 mouth. ity of no.124/iron 11:20: [place] /folic 25 Medical ( Branch VITAMIN ORAL) Yes Take by Univer s vit 4-19 mouth. ity of no.124/iron 11:20: [place] /folic 25 Medical ( Branch VITAMIN ORAL) Yes Take by Univer s vit 4-19 mouth. ity of no.124/iron 11:20: [place] /folic 25 Medical ( Branch VITAMIN ORAL) Yes Take by Univer s vit 4-19 mouth. ity of no.124/iron 11:20: [place] /folic 25 Medical ( Branch VITAMIN ORAL) 0 Yes Take by Univer s vit 4-19 mouth. ity of no.124/iron 11:20: [place] /folic 25 Medical ( Branch VITAMIN ORAL) Yes Take by Univer s vit 4-19 mouth. ity of no.124/iron 11:20: [place] /folic 25 Medical ( Branch VITAMIN ORAL) Yes Take by Univer s vit 4-19 mouth. ity of no.124/iron 11:20: [place] /folic 25 Medical ( Branch VITAMIN ORAL) 0 Yes Take by Univer s vit 4-19 mouth. ity of no.124/iron 11:20: [place] /folic 25 Medical ( Branch VITAMIN ORAL) Yes Take by Univer s vit 4-19 mouth. ity of no.124/iron 11:20: [place] /folic 25 Medical ( Branch VITAMIN ORAL) Yes Take by Univer s vit 4-19 mouth. ity of no.124/iron 11:20: [place] /folic 25 Medical ( Branch VITAMIN ORAL) Yes Take by Univer s vit 4-19 mouth. ity of no.124/iron 11:20: [place] /folic 25 Medical ( Branch VITAMIN ORAL) Yes Take by Univer s vit 4-19 mouth. ity of no.124/iron 11:20: [place] /folic 25 Medical ( Branch VITAMIN ORAL) Yes Take by Univer s vit 4-19 mouth. ity of no.124/iron 11:20: [place] /folic 25 Medical ( Branch VITAMIN ORAL) Yes Take by Univer s vit 4-19 mouth. ity of no.124/iron 11:20: [place] /folic 25 Medical ( Branch VITAMIN ORAL) Yes Take by Univer s vit 4-19 mouth. ity of no.124/iron 11:20: [place] /folic 25 Medical ( Branch VITAMIN ORAL) 0 Yes Take by Univer s vit 4-19 mouth. ity of no.124/iron 11:20: [place] /folic 25 Medical ( Branch VITAMIN ORAL) 0 Yes Take by Univer s vit 4-19 mouth. ity of no.124/iron 11:20: [place] /folic 25 Medical ( Branch VITAMIN ORAL) Yes Take by Univer s vit 4-19 mouth. ity of no.124/iron 11:20: [place] /folic 25 Medical ( Branch VITAMIN ORAL) 0 Yes Take by Univer s vit 4-19 mouth. ity of no.124/iron 11:20: [place] /folic 25 Medical ( Branch VITAMIN ORAL) Yes Take by [facility] vit 4-19 mouth. ity of no.124/iron 11:20: [place] /folic 25 Medical ( Branch VITAMIN ORAL) Yes Take by [facility] vit 4-19 mouth. ity of no.124/iron 11:20: [place] /folic 25 Medical ( Branch VITAMIN ORAL) Yes Take by [facility] vit 4-19 mouth. ity of no.124/iron 11:20: [place] /folic 25 Medical ( Branch VITAMIN ORAL) Yes Take by [facility] vit 4-19 mouth. ity of no.124/iron 11:20: [place] /folic 25 Medical ( Branch VITAMIN ORAL) Yes Take by [facility] s vit 4-19 mouth. ity of no.124/iron 11:20: [place] /folic 25 Medical ( Branch VITAMIN ORAL) norethindro 2019-08 Yes [id number] 1{tbl} Take 1 Univers ne 0.35 mg 1-24 tablet by ity of tablet 00:00: mouth [place] 00 daily. [facility] Branch norethindro 2019-08 Yes [id number] 1{tbl} Take 1 Univers ne 0.35 mg 1-24 tablet by ity of tablet 00:00: mouth [place] 00 daily. [facility] Branch norethindro 2019-08 Yes [id number] 1{tbl} Take 1 Univers ne 0.35 mg 1-24 tablet by ity of tablet 00:00: mouth [place] 00 daily. [facility] norethindro 2019-08- No [id number] 1{tbl} Take 1 Univers ne 0.35 mg 1-24 03-23 tablet by ity of tablet 00:00: 00:00 mouth [place] 00 :00 daily. [facility] Branch ibuprofen 2019-08 Yes 600mg 600 mg, Univ ers (IBU) 0-28 Oral, Q6H ity of tablet 600 05:00: ABX, First [place] mg 00 dose on Medical [facility] Branch 06/05/20 at 0000, Until Discontinu ed, Routine PNV 2019-08 2020- No Take by [facility] 102-iron-fo 0-27 10-27 mouth. ity o f late 15:53: 00:00 [place] 1-dss-dha 17 :00 Medical 90 mg Branch iron-1 mg -50 mg-200 mg Cap HYDROcodone 2019-08 Yes 1{tbl} 1 tablet, Univers -acetaminop 0-27 Oral, ity of hen (NORCO 15:49: Q6HPRN, [place] 5) 5-325 mg 16 Starting Medi sarbjit tablet 1 Wed tablet 06/04/20 at 1049, Until Discontinu ed, Routine, Pain (scale 7-10) acetaminoph 2019-08 Yes 650mg 650 mg, Un neal en 0-27 Oral, Q6H ity of (TYLENOL) 13:45: ABX, First [place] tablet 650 00 dose on Medica l mg Wed Branch 06/04/20 at 0845, Until Discontinu ed, Routine ketorolac 2019-08- No 30mg 30 mg, Unive rs (TORADOL) 0-27 06-04 Slow IV ity of injection 05:00: 22:40 Push, Q6H [place] 30 mg 00 :00 ABX, 4 Medical doses, Branch First dose on Wed06/04/20 at 0000, Last dose on Wed06/04/20 at 1800, Routine
produce service team member approving Restricted medication : KINDRA GRIGGS gabapentin 2019-08 Yes 300mg 300 mg, Uni vers (NEURONTIN) 0-27 Oral, Q8H, it y of capsule 300 03:00: First dose [place] mg 00 (after Medical last Branch modificati on) on Wed06/03/20 at 2200, Until Discontinu ed, Routine acetaminoph 2019-08 Yes [id number] 650mg Take 2 Univers en 325 mg 0-27 tablets by ity of tablet 00:00: mouth [place] 00 every 6 Medical (six) Branch hours as needed for Pain (scale 1-3) or Pain (scale 4-6). 2019-08 Yes [id number] 1{tbl} Take 1 [facility] vitamin 0-27 tablet by ity of w/FA tablet 00:00: mouth [place] 00 daily. Medical Branch docusate 2019-08 Yes [id number] 240mg Take 1 U nivers calcium 240 0-27 capsule by it y of mg capsule 00:00: mouth once [place] 00 daily as Medical needed for Branch Constipati on. ferrous 2019-08 Yes [id number] 325mg Take 1 Un neal sulfate 325 0-27 tablet by ity of mg (65 mg 00:00: mouth 2 [place] iron) 00 (two) Medical tablet times Branch daily. ibuprofen 2019-08 Yes [id number] 600mg Take 1 Univers 600 mg 0-27 tablet by ity of tablet 00:00: mouth [place] 00 every 6 Medical (six) Branch hours as needed for Pain (scale 1-3) or Pain (scale 4-6) (Pain). Take with food or milk. acetaminoph 2019-08 Yes [id number] 650mg Take 2 Univers en 325 mg 0-27 tablets by ity of tablet 00:00: mouth [place] 00 every 6 Medical (six) Branch hours as needed for Pain (scale 1-3) or Pain (scale 4-6). 2019-08 Yes [id number] 1{tbl} Take 1 Univers vitamin 0-27 tablet by ity of w/FA tablet 00:00: mouth [place] 00 daily. Medical Branch docusate 2019-08 Yes [id number] 240mg Take 1 U nivers calcium 240 0-27 capsule by it y of mg capsule 00:00: mouth once [place] 00 daily as Medical needed for Branch Constipati on. ferrous 2019-08 Yes [id number] 325mg Take 1 Un neal sulfate 325 0-27 tablet by ity of mg (65 mg 00:00: mouth 2 [place] iron) 00 (two) Medical tablet times Branch daily. ibuprofen 2019-08 Yes [id number] 600mg Take 1 Univers 600 mg 0-27 tablet by ity of tablet 00:00: mouth [place] 00 every 6 Medical (six) Branch hours as needed for Pain (scale 1-3) or Pain (scale 4-6) (Pain). Take with food or milk. acetaminoph 2019-08 Yes [id number] 650mg Take 2 Univers en 325 mg 0-27 tablets by ity of tablet 00:00: mouth [place] 00 every 6 Medical (six) Branch hours as needed for Pain (scale 1-3) or Pain (scale 4-6). 2019-08 Yes [id number] 1{tbl} Take 1 Univers vitamin 0-27 tablet by ity of w/FA tablet 00:00: mouth [place] 00 daily. Medical Branch docusate 2019-08 Yes [id number] 240mg Take 1 U nivers calcium 240 0-27 capsule by it y of mg capsule 00:00: mouth once [place] 00 daily as Medical needed for Branch Constipati on. ferrous 2019-08 Yes [id number] 325mg Take 1 Un neal sulfate 325 0-27 tablet by ity of mg (65 mg 00:00: mouth 2 [place] iron) 00 (two) Medical tablet times Branch daily. ibuprofen 2019-08 Yes [id number] 600mg Take 1 Univers 600 mg 0-27 tablet by ity of tablet 00:00: mouth [place] 00 every 6 Medical (six) Branch hours as needed for Pain (scale 1-3) or Pain (scale 4-6) (Pain). Take with food or milk. acetaminoph 2019-08 Yes [id number] 650mg Take 2 Univers en 325 mg 0-27 tablets by ity of tablet 00:00: mouth [place] 00 every 6 Medical (six) Branch hours as needed for Pain (scale 1-3) or Pain (scale 4-6). 2019-08 Yes [id number] 1{tbl} Take 1 Univers vitamin 0-27 tablet by ity of w/FA tablet 00:00: mouth [place] 00 daily. Medical Branch docusate 2019-08 Yes [id number] 240mg Take 1 U nivers calcium 240 0-27 capsule by it y of mg capsule 00:00: mouth once [place] 00 daily as Medical needed for Branch Constipati on. ferrous 2019-08 Yes [id number] 325mg Take 1 Un neal sulfate 325 0-27 tablet by ity of mg (65 mg 00:00: mouth 2 [place] iron) 00 (two) Medical tablet times Branch daily. ibuprofen 2019-08 Yes [id number] 600mg Take 1 Univers 600 mg 0-27 tablet by ity of tablet 00:00: mouth [place] 00 every 6 Medical (six) Branch hours as needed for Pain (scale 1-3) or Pain (scale 4-6) (Pain). Take with food or milk. acetaminoph 2019-08 Yes [id number] 650mg Take 2 Univers en 325 mg 0-27 tablets by ity of tablet 00:00: mouth [place] 00 every 6 Medical (six) Branch hours as needed for Pain (scale 1-3) or Pain (scale 4-6). 2019-08 Yes [id number] 1{tbl} Take 1 [facility] vitamin 0-27 tablet by ity of w/FA tablet 00:00: mouth [place] 00 daily. Medical Branch docusate 2019-08 Yes [id number] 240mg Take 1 U nivers calcium 240 0-27 capsule by it y of mg capsule 00:00: mouth once [place] 00 daily as Medical needed for Branch Constipati on. ferrous 2019-08 Yes [id number] 325mg Take 1 Un neal sulfate 325 0-27 tablet by ity of mg (65 mg 00:00: mouth 2 [place] iron) 00 (two) Medical tablet times Branch daily. ibuprofen 2019-08 Yes [id number] 600mg Take 1 Univers 600 mg 0-27 tablet by ity of tablet 00:00: mouth [place] 00 every 6 Medical (six) Branch hours as needed for Pain (scale 1-3) or Pain (scale 4-6) (Pain). Take with food or milk. acetaminoph 2019-08 Yes [id number] 650mg Take 2 Univers en 325 mg 0-27 tablets by ity of tablet 00:00: mouth [place] 00 every 6 Medical (six) Branch hours as needed for Pain (scale 1-3) or Pain (scale 4-6). 2019-08 Yes [id number] 1{tbl} Take 1 [facility] vitamin 0-27 tablet by ity of w/FA tablet 00:00: mouth [place] 00 daily. Medical Branch ferrous 2019-08 Yes [id number] 325mg Take 1 Un neal sulfate 325 0-27 tablet by ity of mg (65 mg 00:00: mouth 2 [place] iron) 00 (two) Medical tablet times Branch daily. ibuprofen 2019-08 Yes [id number] 600mg Take 1 Univers 600 mg 0-27 tablet by ity of tablet 00:00: mouth [place] 00 every 6 Medical (six) Branch hours as needed for Pain (scale 1-3) or Pain (scale 4-6) (Pain). Take with food or milk. acetaminoph 2019-08 Yes [id number] 650mg Take 2 Univers en 325 mg 0-27 tablets by ity of tablet 00:00: mouth [place] 00 every 6 Medical (six) Branch hours as needed for Pain (scale 1-3) or Pain (scale 4-6). 2019-08 Yes [id number] 1{tbl} Take 1 Univers vitamin 0-27 tablet by ity of w/FA tablet 00:00: mouth [place] 00 daily. Medical Branch ferrous 2019-08 Yes [id number] 325mg Take 1 Un neal sulfate 325 0-27 tablet by ity of mg (65 mg 00:00: mouth 2 [place] iron) 00 (two) Medical tablet times Branch daily. ibuprofen 2019-08 Yes [id number] 600mg Take 1 Univers 600 mg 0-27 tablet by ity of tablet 00:00: mouth [place] 00 every 6 Medical (six) Branch hours as needed for Pain (scale 1-3) or Pain (scale 4-6) (Pain). Take with food or milk. acetaminoph 2019-08 Yes [id number] 650mg Take 2 Univers en 325 mg 0-27 tablets by ity of tablet 00:00: mouth [place] 00 every 6 Medical (six) Branch hours as needed for Pain (scale 1-3) or Pain (scale 4-6). 2019-08 Yes [id number] 1{tbl} Take 1 Univers vitamin 0-27 tablet by ity of w/FA tablet 00:00: mouth [place] 00 daily. Medical Branch ferrous 2019-08 Yes [id number] 325mg Take 1 Un neal sulfate 325 0-27 tablet by ity of mg (65 mg 00:00: mouth 2 [place] iron) 00 (two) Medical tablet times Branch daily. ibuprofen 2019-08 Yes [id number] 600mg Take 1 Univers 600 mg 0-27 tablet by ity of tablet 00:00: mouth [place] 00 every 6 Medical (six) Branch hours as needed for Pain (scale 1-3) or Pain (scale 4-6) (Pain). Take with food or milk. acetaminoph 2019-08- No [id number] 650mg Take 2 Univers en 325 mg 0-27 03-23 tablets by ity of tablet 00:00: 00:00 mouth [place] 00 :00 every 6 Medical (six) Branch hours as needed for Pain (scale 1-3) or Pain (scale 4-6). 2019-08- No [id number] 1{tbl} Take 1 Univers vitamin 0-27 03-23 tablet by ity of w/FA tablet 00:00: 00:00 mouth [place] 00 :00 daily. Medical Branch ferrous 2019-08 No [id number] 325mg Take 1 U nivers sulfate 325 0-27 03-23 tablet by it y of mg (65 mg 00:00: 00:00 mouth 2 [place] iron) 00 :00 (two) Medical tablet times Branch daily. ibuprofen 2019-08 No [id number] 600mg Take 1 Univers 600 mg 0-27 03-23 tablet by ity of tablet 00:00: 00:00 mouth [place] 00 :00 every 6 Medical (six) Branch hours as needed for Pain (scale 1-3) or Pain (scale 4-6) (Pain). Take with food or milk. docusate 2019-08 No [id number] 240mg Take 1 Univers calcium 240 0-27 -24 capsule by i ty of mg capsule 00:00: 00:00 mouth once [place] 00 :00 daily as Medical needed for Branch Constipati on. HYDROcodone 2019-08 No [id number] 1{tbl} Take 1 U nivers -acetaminop 0-27 11-04 tablet by it y of hen 5-325 00:00: 05:59 mouth [place] mg tablet 00 :00 every 6 Medical (six) Branch hours as needed for Pain (scale 7-10) for up to 7 days. Indication s: acute pain HYDROcodone 2019-08 No [id number] 1{tbl} Take 1 U nivers -acetaminop 0-27 11-04 tablet by it y of hen 5-325 00:00: 05:59 mouth [place] mg tablet 00 :00 every 6 Medical (six) Branch hours as needed for Pain (scale 7-10) for up to 7 days. Indication s: acute pain HYDROcodone 2019-08 No [id number] 1{tbl} Take 1 U nivers -acetaminop 0-27 11-04 tablet by it y of hen 5-325 00:00: 05:59 mouth [place] mg tablet 00 :00 every 6 Medical (six) Branch hours as needed for Pain (scale 7-10) for up to 7 days. Indication s: acute pain gabapentin 2019-08 No [id number] 300mg Take 1 Univers 300 mg 0-27 11-02 capsule by ity of capsule 00:00: 05:59 mouth [place] 00 :00 every 8 Medical (eight) Branch hours for 5 days. gabapentin 2019-08 No [id number] 300mg Take 1 Univers 300 mg 006-10 capsule by ity of capsule 00:00: 05:59 mouth [place] 00 :00 every 8 Medical (eight) Branch hours for 5 days. acetaminoph 2019-08- No 1000mg 1,000 mg, Univers en ADULT 0- 10-26 IV ity of (OFIRMEV) 19:45: 19:59 Infusion, [place] injection 00 :00 Administer Medi sarbjit 1,000 mg over 15 Branch Minutes, ONCE, 1 dose, [facility] 06/03/20 at 1445, Routine, PACU
Indicatio n: Perioperat chantal Patient gabapentin 2019-08- No 300mg 300 mg, Un neal (NEURONTIN) 0- 10- Oral, TID, i ty of capsule 300 19:00: 22:40 First dose [place] mg 00 :54 on [facility] Medical 06/03/20 Branch at 1400, Until Discontinu ed, Routine simethicone 2019-08 Yes 160mg 160 mg, Un neal (GAS RELIEF 0- Oral, ity of (SIMETHICON 18:00: PC+HS, [place] E)) 00 First dose Medical chewable on Wed Branch tablet 160 06/03/20 mg at 1300, Until Discontinu ed, Routine lactated 2019-08 Yes 1000mL at 75 Univer s ringers IV 0-26 mL/hr, ity of infusion 16:30: 1,000 mL, [place] 1,000 mL 00 IV Medical Infusion, Branch CONTINUOUS , Starting [facility] 06/03/20 at 1130, Until Discontinu ed, Routine, PACU lactated 2019-08- No 1000mL at 125 Univ ers ringers IV 0-26 10-27 mL/hr, ity of infusion 16:30: 01:01 1,000 mL, [place] 1,000 mL 00 :00 IV Medical Infusion, Branch ONCE, 1 dose, [facility] 06/03/20 at 1130, Routine rho(D) 2019-08 Yes 300ug 300 mcg, Univer s immune 0-26 Intramuscu ity of globulin 16:25: lar, ONCE, [place] (RHOGAM) 26 For 1 Medical syringe 300 dose, Branch mcg Conditiona l, Routine ondansetron 2019-08 Yes 4mg 4 mg, Slow Univers (ZOFRAN 0-26 IV Push, ity of (PF)) 16:25: Q8HPRN, [place] injection 4 13 Starting Medi sarbjit mg [facility] 06/03/20 at 1125, Until Discontinu ed, Routine, Nausea and Vomiting (N/V) magnesium 2019-08 Yes 30mL 30 mL, Univer s hydroxide 0-26 Oral, ity of (MILK OF 16:25: QDAILYPRN, [place] MAGNESIA) 13 Starting Medica l 400 mg/5 mL [facility] suspension 06/03/20 30 mL at 1125, Until Discontinu ed, Routine, Constipati on diphenhydrA 2019-08 Yes 25mg 25 mg, Univ ers MINE 0-26 Oral, ity of (BENADRYL) 16:25: Q6HPRN, [place] tablet 25 12 Starting Medica l mg [facility] 06/03/20 at 1125, Until Discontinu ed, Routine, Sleep, Itching bisacodyL 2019-08 Yes 10mg 10 mg, Univer s (DULCOLAX) 0-26 Rectal, ity of suppository 16:25: QDAILYPRN, [place] 10 mg 12 Starting Medical [facility] 06/03/20 at 1125, Until Discontinu ed, Routine, Constipati on docusate 2019-08 Yes 240mg 240 mg, Unive rs calcium 0-26 Oral, ity of (SURFAK) 16:25: QDAILYPRN, [place] capsule 240 12 Starting Medi sarbjit mg [facility] 06/03/20 at 1125, Until Discontinu ed, Routine, Constipati on ondansetron 2019-08 Yes 4mg 4 mg, Slow Univers (ZOFRAN 0-26 IV Push, ity of (PF)) 16:24: PRN, 1 [place] injection 4 51 dose, Medical mg Starting Branch [facility] 06/03/20 at 1124, Until Discontinu ed, Routine, [...] Branch dose, 06/03/20 at 0830, Routine sodium 2020- Yes PRN, Univers chloride 0-26 Starting ity of 0.9 % 13:28: Mon [place] irrigation 00 06/03/20 Medic al solution at 0828, Branch Until Discontinu ed, Intra-op sodium 2020- 2020- No 30mL 30 mL, Univers citrate-cit 0-26 06-03 Oral, ity of rach acid 12:23: 12:36 [...] 102-iron-fo 4-20 mouth. ity of late 14:01: [place] 1-dss-dha 37 Medical 90 mg Branch iron-1 mg -50 mg-200 mg Cap PNV 2020-0 Yes Take by Univers 102-iron-fo 4-20 mouth. ity of late 14:01: [place] 1-dss-dha 37 Medical 90 mg Branch iron-1 mg -50 mg-200 mg Cap PNV 2020-0 Yes Take by Univers 102-iron-fo 4-20 mouth. ity of late 14:01: [place]-dss-dha 37 Medical 90 mg Branch iron-1 mg -50 mg-200 mg Cap PNV 2020-0 Yes Take by Univers 102-iron-fo 4-20 mouth. ity of late 14:01: [place]-dss-dha 37 Medical 90 mg Branch iron-1 mg -50 mg-200 mg Cap PNV 2020-0 Yes Take by Univers 102-iron-fo 4-20 mouth. ity of late 14:01: [place] 1-dss-dha 37 Medical 90 mg Branch iron-1 mg -50 mg-200 mg Cap PNV 2020-0 Yes Take by Univers 102-iron-fo 4-20 mouth. ity of late 14:01: [place] 1-dss-dha 37 Medical 90 mg Branch iron-1 [...] 102-iron-fo 4-20 mouth. ity of late 14:: [place]anna-dss-dha 37 Medical 90 mg Branch iron-1 mg -50 mg-200 mg Cap PNV 2020-0 Yes Take by Univers 102-iron-fo 4-20 mouth. ity of late 14:: [place] 1-dss-dha 37 Medical 90 mg Branch iron-1 mg -50 mg-200 mg Cap PNV 2020-0 Yes Take by Univers 102-iron-fo 4-20 mouth. ity of late 14:: [place] 1-dss-dha 37 Medical 90 mg Branch iron-1 mg -50 mg-200 mg Cap PNV 2020-0 Yes Take by Univers 102-iron-fo 4-20 mouth. ity of late 14:: [place]anna-dss-dha 37 Medical 90 mg Branch iron-1 mg -50 mg-200 mg Cap PNV 2020-0 Yes Take by Univers 102-iron-fo 4-20 mouth. ity of late 14:: [place] 1-dss-dha 37 Medical 90 mg Branch iron-1 mg -50 mg-200 mg Cap PNV 2020-0 Yes Take by Univers 102-iron-fo 4-20 mouth. ity of late 14:: [place]anna-dss-dha 37 Medical 90 mg Branch iron-1 mg -50 mg-200 mg Cap PNV 2020-0 Yes Take by Univers 102-iron-fo 4-20 mouth. ity of late 14:: [place] 1-dss-dha 37 Medical 90 mg Branch iron-1 mg -50 mg-200 mg Cap PNV 2020-0 Yes Take by Univers 102-iron-fo 4-20 mouth. ity of late 14:: [place] 1-dss-dha 37 Medical 90 mg Branch iron-1 mg -50 mg-200 mg Cap PNV 2020-0 Yes Take by Univers 102-iron-fo 4-20 mouth. ity of late 14:: [place] 1-dss-dha 37 Medical 90 mg Branch iron-1 mg -50 mg-200 mg Cap PNV 2020-0 Yes Take by [facility] 102-iron-fo 4-20 mouth. ity of late 14:01: [place]-dss-dha 37 Medical 90 mg Branch iron-1 mg -50 mg-200 mg Cap PNV 2020-0 Yes Take by [facility] 102-iron-fo 4-20 mouth. ity of late 14:01: [place] 1-dss-dha 37 Medical 90 mg Branch iron-1 mg -50 mg-200 mg Cap PNV 2020-0 Yes Take by [facility] 102-iron-fo 4-20 mouth. ity of late 14:01: [place]anna-dss-dha 37 Medical 90 mg Branch iron-1 mg -50 mg-200 mg Cap PNV 2020-0 Yes Take by [facility] 102-iron-fo 4-20 mouth. ity of late 14:01: [place]-dss-dha 37 Medical 90 mg Branch iron-1 mg -50 mg-200 mg Cap PNV 2020-0 Yes Take by [facility] 102-iron-fo 4-20 mouth. ity of late 14:01: [place]-dss-dha 37 Medical 90 mg Branch iron-1 mg -50 mg-200 mg Cap PNV 2020-0 Yes Take by [facility] 102-iron-fo 4-20 mouth. ity of late 14:01: [place] Hanna-dss-dha 37 Medical 90 mg Branch iron-1 mg -50 mg-200 mg Cap PNV 2020-0 Yes Take by [facility] 102-iron-fo 4-20 mouth. ity of late 14:01: [place] [id number] 90 mg Branch iron-1 mg -50 mg-200 mg Cap albuterol 2020-0 Yes [id number] 2{puff} Inhale 2 [facility] 90 4-20 Puffs ity of mcg/actuati 00:00: every 6 [place] on inhaler 00 (six) Medical hours as Branch needed for Wheezing, Shortness of Breath, Bronchospa sm or Chest tightness. albuterol 2020-0 Yes [id number] 2{puff} Inhale 2 [facility] 90 4-20 Puffs ity of mcg/actuati 00:00: every 6 [place] on inhaler 00 (six) Medical hours as Branch needed for Wheezing, Shortness of Breath, Bronchospa sm or Chest tightness. albuterol 2020-0 Yes [id number] 2{puff} Inhale 2 [facility] 90 4-20 Puffs ity of mcg/actuati 00:00: every 6 [place] [facility] on inhaler 00 (six) Medical hours as Branch needed for Wheezing, Shortness of Breath, Bronchospa sm or Chest tightness. albuterol 2020-0 Yes [id number] 2{puff} Inhale 2 [facility] 90 4-20 Puffs ity of mcg/actuati 00:00: every 6 [place] on inhaler 00 (six) Medical hours as Branch needed for Wheezing, Shortness of Breath, Bronchospa sm or Chest tightness. albuterol 2020-0 Yes [id number] 2{puff} Inhale 2 [facility] 90 4-20 Puffs ity of mcg/actuati 00:00: every 6 [place] [facility] on inhaler 00 (six) Medical hours as Branch needed for Wheezing, Shortness of Breath, Bronchospa sm or Chest tightness. albuterol 2020-0 Yes [id number] 2{puff} Inhale 2 [facility] 90 4-20 Puffs ity of mcg/actuati 00:00: every 6 [place] [facility] on inhaler 00 (six) Medical hours as Branch needed for Wheezing, Shortness of Breath, Bronchospa sm or Chest tightness. albuterol 2020-0 Yes [id number] 2{puff} Inhale 2 [facility] 90 4-20 Puffs ity of mcg/actuati 00:00: every 6 [place] [facility] on inhaler 00 (six) Medical hours as Branch needed for Wheezing, Shortness of Breath, Bronchospa sm or Chest tightness. albuterol 2020-0 Yes [id number] 2{puff} Inhale 2 [facility] 90 4-20 Puffs ity of mcg/actuati 00:00: every 6 [place] [facility] on inhaler 00 (six) Medical hours as Branch needed for Wheezing, Shortness of Breath, Bronchospa sm or Chest tightness. albuterol 2020-0 Yes [id number] 2{puff} Inhale 2 [facility] 90 4-20 Puffs ity of mcg/actuati 00:00: every 6 [place] [facility] on inhaler 00 (six) Medical hours as Branch needed for Wheezing, Shortness of Breath, Bronchospa sm or Chest tightness. albuterol 2020-0 Yes [id number] 2{puff} Inhale 2 [facility] 90 4-20 Puffs ity of mcg/actuati 00:00: every 6 [place] [facility] on inhaler 00 (six) Medical hours as Branch needed for Wheezing, Shortness of Breath, Bronchospa sm or Chest tightness. albuterol 2020-0 Yes [id number] 2{puff} Inhale 2 [facility] 90 4-20 Puffs ity of mcg/actuati 00:00: every 6 [place] [facility] on inhaler 00 (six) Medical hours as Branch needed for Wheezing, Shortness of Breath, Bronchospa sm or Chest tightness. albuterol 2020-0 Yes [id number] 2{puff} Inhale 2 [facility] 90 4-20 Puffs ity of mcg/actuati 00:00: every 6 [place] [facility] on inhaler 00 (six) Medical hours as Branch needed for Wheezing, Shortness of Breath, Bronchospa sm or Chest tightness. albuterol 2020-0 Yes [id number] 2{puff} Inhale 2 [facility] 90 4-20 Puffs ity of mcg/actuati 00:00: every 6 [place] [facility] on inhaler 00 (six) Medical hours as Branch needed for Wheezing, Shortness of Breath, Bronchospa sm or Chest tightness. albuterol 2020-0 Yes [id number] 2{puff} Inhale 2 [facility] 90 4-20 Puffs ity of mcg/actuati 00:00: every 6 [place] [facility] on inhaler 00 (six) Medical hours as Branch needed for Wheezing, Shortness of Breath, Bronchospa sm or Chest tightness. albuterol 2020-0 Yes [id number] 2{puff} Inhale 2 [facility] 90 4-20 Puffs ity of mcg/actuati 00:00: every 6 [place] [facility] on inhaler 00 (six) Medical hours as Branch needed for Wheezing, Shortness of Breath, Bronchospa sm or Chest tightness. albuterol 2020-0 Yes [id number] 2{puff} Inhale 2 [facility] 90 4-20 Puffs ity of mcg/actuati 00:00: every 6 [place] [facility] on inhaler 00 (six) Medical hours as Branch needed for Wheezing, Shortness of Breath, Bronchospa sm or Chest tightness. albuterol 2020-0 Yes [id number] 2{puff} Inhale 2 [facility] 90 4-20 Puffs ity of mcg/actuati 00:00: every 6 [place] [facility] on inhaler 00 (six) Medical hours as Branch needed for Wheezing, Shortness of Breath, Bronchospa sm or Chest tightness. albuterol 2020-0 Yes [id number] 2{puff} Inhale 2 [facility] 90 4-20 Puffs ity of mcg/actuati 00:00: every 6 [place] [facility] on inhaler 00 (six) Medical hours as Branch needed for Wheezing, Shortness of Breath, Bronchospa sm or Chest tightness. albuterol 2020-0 Yes [id number] 2{puff} Inhale 2 [facility] 90 4-20 Puffs ity of mcg/actuati 00:00: every 6 [place] [facility] on inhaler 00 (six) Medical hours as Branch needed for Wheezing, Shortness of Breath, Bronchospa sm or Chest tightness. albuterol 2020-0 Yes [id number] 2{puff} Inhale 2 [facility] 90 4-20 Puffs ity of mcg/actuati 00:00: every 6 [place] [facility] on inhaler 00 (six) Medical hours as Branch needed for Wheezing, Shortness of Breath, Bronchospa sm or Chest tightness. albuterol 2020-0 Yes [id number] 2{puff} Inhale 2 [facility] 90 4-20 Puffs ity of mcg/actuati 00:00: every 6 [place] [facility] on inhaler 00 (six) Medical hours as Branch needed for Wheezing, Shortness of Breath, Bronchospa sm or Chest tightness. albuterol 2020-0 Yes [id number] 2{puff} Inhale 2 [facility] 90 4-20 Puffs ity of mcg/actuati 00:00: every 6 [place] [facility] on inhaler 00 (six) Medical hours as Branch needed for Wheezing, Shortness of Breath, Bronchospa sm or Chest tightness. albuterol 2020-0 Yes [id number] 2{puff} Inhale 2 [facility] 90 4-20 Puffs ity of mcg/actuati 00:00: every 6 [place] [facility] on inhaler 00 (six) Medical hours as Branch needed for Wheezing, Shortness of Breath, Bronchospa sm or Chest tightness. albuterol 2020-0 Yes [id number] 2{puff} Inhale 2 [facility] 90 4-20 Puffs ity of mcg/actuati 00:00: every 6 [place] [facility] on inhaler 00 (six) Medical hours as Branch needed for Wheezing, Shortness of Breath, Bronchospa sm or Chest tightness. albuterol 2020-0 Yes [id number] 2{puff} Inhale 2 [facility] 90 4-20 Puffs ity of mcg/actuati 00:00: every 6 [place] [facility] on inhaler 00 (six) Medical hours as Branch needed for Wheezing, Shortness of Breath, Bronchospa sm or Chest tightness. albuterol 2020-0 Yes [id number] 2{puff} Inhale 2 [facility] 90 4-20 Puffs ity of mcg/actuati 00:00: every 6 [place] [facility] on inhaler 00 (six) Medical hours as Branch needed for Wheezing, Shortness of Breath, Bronchospa sm or Chest tightness. albuterol 2020-0 Yes [id number] 2{puff} Inhale 2 [facility] 90 4-20 Puffs ity of mcg/actuati 00:00: every 6 [place] [facility] on inhaler 00 (six) Medical hours as Branch needed for Wheezing, Shortness of Breath, Bronchospa sm or Chest tightness. albuterol 2020-0 Yes [id number] 2{puff} Inhale 2 [facility] 90 4-20 Puffs ity of mcg/actuati 00:00: every 6 [place] [facility] on inhaler 00 (six) Medical hours as Branch needed for Wheezing, Shortness of Breath, Bronchospa sm or Chest tightness. albuterol 2020-0 Yes [id number] 2{puff} Inhale 2 [facility] 90 4-20 Puffs ity of mcg/actuati 00:00: every 6 [place] [facility] on inhaler 00 (six) Medical hours as Branch needed for Wheezing, Shortness of Breath, Bronchospa sm or Chest tightness. albuterol 2020-0 Yes [id number] 2{puff} Inhale 2 [facility] 90 4-20 Puffs ity of mcg/actuati 00:00: every 6 [place] [facility] on inhaler 00 (six) Medical hours as Branch needed for Wheezing, Shortness of Breath, Bronchospa sm or Chest tightness. albuterol 2020-0 Yes [id number] 2{puff} Inhale 2 [facility] 90 4-20 Puffs ity of mcg/actuati 00:00: every 6 [place] as on inhaler 00 (six) Medical hours as Branch needed for Wheezing, Shortness of Breath, Bronchospa sm or Chest tightness. albuterol Yes [id number] 2{puff} Inhale 2 [facility] 90 4-20 Puffs ity of mcg/actuati 00:00: every 6 [place] as on inhaler 00 (six) Medical hours as Branch needed for Wheezing, Shortness of Breath, Bronchospa sm or Chest tightness. albuterol Yes [id number] 2{puff} Inhale 2 [facility] 90 4-20 Puffs ity of mcg/actuati 00:00: every 6 [place] as on inhaler 00 (six) Medical hours as Branch needed for Wheezing, Shortness of Breath, Bronchospa sm or Chest tightness. albuterol Yes [id number] 2{puff} Inhale 2 [facility] 90 4-20 Puffs ity of mcg/actuati 00:00: every 6 [place] as on inhaler 00 (six) Medical hours as Branch needed for Wheezing, Shortness of Breath, Bronchospa sm or Chest tightness. albuterol 2020- No [id number] 2{puff} Inhale 2 [facility] 90 4-20 10-27 Puffs ity of mcg/actuati 00:00: 00:00 every 6 [place] on inhaler 00 :00 (six) Medical hours as Branch needed for Wheezing, Shortness of Breath, Bronchospa sm or Chest tightness. Immunizations Ordered Filled Date Status Comments Source Immunization Name Immunization Name TD 2023-03-24 Completed [facility] of 00:00:00 [facility] [place] TDAP 2023-03-24 Completed University of 00:00:00 [facility] [place] TDAP 2023-03-24 Completed University of 00:00:00 [facility] [place] TDAP 2023-03-24 Completed University of 00:00:00 [facility] [place] TDAP 2023-03-24 Completed University of 00:00:00 [facility] [place] TDAP 2023-03-24 Completed University of 00:00:00 [facility] [place] TDAP 2023-03-24 Completed University of 00:00:00 [facility] [place] TDAP 2023-03-24 Completed University of 00:00:00 [facility] [place] TDAP 2023-03-24 Completed University of 00:00: [facility] [place] TDAP 2023-03-24 Completed University of 00:00:00 [facility] [place] SARS-COV-2 COVID-19 2020-12-07 Completed Unive rsity of PFIZER VACCINE 00:00:00 [facility] SARS-COV-2 COVID-19 2020-12-07 Completed Unive rsity of PFIZER VACCINE 00:00:00 [facility] SARS-COV-2 COVID-19 2020-12-07 Completed Unive rsity of PFIZER VACCINE 00:00:00 [facility] SARS-COV-2 COVID-19 2020-12-07 Completed Unive rsity of PFIZER VACCINE 00:00:00 [facility] SARS-COV-2 COVID-19 2020-12-07 Completed Unive rsity of PFIZER VACCINE 00:00:00 [facility] SARS-COV-2 COVID-19 2020-12-07 Completed Unive rsity of PFIZER VACCINE 00:00:00 [facility] SARS-COV-2 COVID-19 2020-12-07 Completed Unive rsity of PFIZER VACCINE 00:00:00 [facility] SARS-COV-2 COVID-19 2020-12-07 Completed Unive rsity of PFIZER VACCINE 00:00:00 [facility] SARS-COV-2 COVID-19 2020-12-07 Completed Unive rsity of PFIZER VACCINE 00:00:00 [facility] SARS-COV-2 COVID-19 2020-12-07 Completed Unive rsity of PFIZER VACCINE 00:00:00 [facility] SARS-COV-2 COVID-19 2020-12-07 Completed Unive rsity of PFIZER VACCINE 00:00:00 [facility] SARS-COV-2 COVID-19 2020-12-07 Completed Unive rsity of PFIZER VACCINE 00:00:00 [facility] SARS-COV-2 COVID-19 2020-12-07 Completed Unive rsity of PFIZER VACCINE 00:00:00 [facility] SARS-COV-2 COVID-19 2020-12-07 Completed Unive rsity of PFIZER VACCINE 00:00:00 [facility] SARS-COV-2 COVID-19 2020-12-07 Completed Unive rsity of PFIZER VACCINE 00:00:00 [facility] SARS-COV-2 COVID-19 2020-12-07 Completed Unive rsity of PFIZER VACCINE 00:00:00 [facility] SARS-COV-2 COVID-19 2020-12-07 Completed Unive rsity of PFIZER VACCINE 00:00:00 [facility] SARS-COV-2 COVID-19 2020-12-07 Completed Unive rsity of PFIZER VACCINE 00:00:00 [facility] SARS-COV-2 COVID-19 2020-12-07 Completed Unive rsity of PFIZER VACCINE 00:00:00 [facility] SARS-COV-2 COVID-19 2020-12-07 Completed Unive rsity of PFIZER VACCINE 00:00:00 [facility] SARS-COV-2 COVID-19 2020-12-07 Completed Unive rsity of PFIZER VACCINE 00:00:00 [facility] SARS-COV-2 COVID-19 2020-12-07 Completed Unive rsity of PFIZER VACCINE 00:00:00 [facility] SARS-COV-2 COVID-19 2020-12-07 Completed Unive rsity of PFIZER VACCINE 00:00:00 [facility] SARS-COV-2 COVID-19 2020-12-07 Completed Unive rsity of PFIZER VACCINE 00:00:00 [facility] SARS-COV-2 COVID-19 2020-12-07 Completed Unive rsity of PFIZER VACCINE 00:00:00 [facility] SARS-COV-2 COVID-19 2020-12-07 Completed Unive rsity of PFIZER VACCINE 00:00:00 [facility] SARS-COV-2 COVID-19 2020-12-07 Completed Unive rsity of PFIZER VACCINE 00:00:00 [facility] SARS-COV-2 COVID-19 2020-12-07 Completed Unive rsity of PFIZER VACCINE 00:00:00 [facility] SARS-COV-2 COVID-19 2020-12-07 Completed Unive rsity of PFIZER VACCINE 00:00:00 [facility] SARS-COV-2 COVID-19 2020-12-07 Completed Unive rsity of PFIZER VACCINE 00:00:00 [facility] SARS-COV-2 COVID-19 2020-11-16 Completed Unive rsity of PFIZER VACCINE 00:00:00 [facility] SARS-COV-2 COVID-19 2020-11-16 Completed Unive rsity of PFIZER VACCINE 00:00:00 [facility] SARS-COV-2 COVID-19 2020-11-16 Completed Unive rsity of PFIZER VACCINE 00:00:00 [facility] SARS-COV-2 COVID-19 2020-11-16 Completed Unive rsity of PFIZER VACCINE 00:00:00 [facility] SARS-COV-2 COVID-19 2020-11-16 Completed Unive rsity of PFIZER VACCINE 00:00:00 [facility] SARS-COV-2 COVID-19 2020-11-16 Completed Unive rsity of PFIZER VACCINE 00:00:00 [facility] SARS-COV-2 COVID-19 2020-11-16 Completed Unive rsity of PFIZER VACCINE 00:00:00 [facility] SARS-COV-2 COVID-19 2020-11-16 Completed Unive rsity of PFIZER VACCINE 00:00:00 [facility] SARS-COV-2 COVID-19 2020-11-16 Completed Unive rsity of PFIZER VACCINE 00:00:00 [facility] SARS-COV-2 COVID-19 2020-11-16 Completed Unive rsity of PFIZER VACCINE 00:00:00 [facility] SARS-COV-2 COVID-19 2020-11-16 Completed Unive rsity of PFIZER VACCINE 00:00:00 [facility] SARS-COV-2 COVID-19 2020-11-16 Completed Unive rsity of PFIZER VACCINE 00:00:00 [facility] SARS-COV-2 COVID-19 2020-11-16 Completed Unive rsity of PFIZER VACCINE 00:00:00 [facility] SARS-COV-2 COVID-19 2020-11-16 Completed Unive rsity of PFIZER VACCINE 00:00:00 [facility] SARS-COV-2 COVID-19 2020-11-16 Completed Unive rsity of PFIZER VACCINE 00:00:00 [facility] SARS-COV-2 COVID-19 2020-11-16 Completed Unive rsity of PFIZER VACCINE 00:00:00 [facility] SARS-COV-2 COVID-19 2020-11-16 Completed Unive rsity of PFIZER VACCINE 00:00:00 [facility] SARS-COV-2 COVID-19 2020-11-16 Completed Unive rsity of PFIZER VACCINE 00:00:00 [facility] SARS-COV-2 COVID-19 2020-11-16 Completed Unive rsity of PFIZER VACCINE 00:00:00 [facility] SARS-COV-2 COVID-19 2020-11-16 Completed Unive rsity of PFIZER VACCINE 00:00:00 [facility] SARS-COV-2 COVID-19 2020-11-16 Completed Unive rsity of PFIZER VACCINE 00:00:00 [facility] SARS-COV-2 COVID-19 2020-11-16 Completed Unive rsity of PFIZER VACCINE 00:00:00 [facility] SARS-COV-2 COVID-19 2020-11-16 Completed Unive rsity of PFIZER VACCINE 00:00:00 [facility] SARS-COV-2 COVID-19 2020-11-16 Completed Unive rsity of PFIZER VACCINE 00:00:00 [facility] SARS-COV-2 COVID-19 2020-11-16 Completed Unive rsity of PFIZER VACCINE 00:00:00 [facility] SARS-COV-2 COVID-19 2020-11-16 Completed Unive rsity of PFIZER VACCINE 00:00:00 [facility] SARS-COV-2 COVID-19 2020-11-16 Completed Unive rsity of PFIZER VACCINE 00:00:00 [facility] SARS-COV-2 COVID-19 2020-11-16 Completed Unive rsity of PFIZER VACCINE 00:00:00 [facility] SARS-COV-2 COVID-19 2020-11-16 Completed Unive rsity of PFIZER VACCINE 00:00:00 [facility] SARS-COV-2 COVID-19 2020-11-16 Completed Unive rsity of PFIZER VACCINE 00:00:00 [facility] SARS-COV-2 COVID-19 2020-11-16 Completed Unive rsity of PFIZER VACCINE 00:00:00 [facility] Influenza Virus 2020-05-22 Completed Universit y of Vaccine Quad .5 mL 00:00:00 [facility] 6+ MO Branch (FLUZONE/FLULAVAL/F LUARIX) Influenza Virus 2020-05-22 Completed Universit y of Vaccine Quad .5 mL 00:00:00 [facility] 6+ MO Branch (FLUZONE/FLULAVAL/F LUARIX) Influenza Virus 2020-05-22 Completed Universit y of Vaccine Quad .5 mL 00:00:00 [facility] 6+ MO Branch (FLUZONE/FLULAVAL/F LUARIX) Influenza Virus 2020-05-22 Completed Universit y of Vaccine Quad .5 mL 00:00:00 [facility] 6+ MO Branch (FLUZONE/FLULAVAL/F LUARIX) Influenza Virus 2020-05-22 Completed Universit y of [...] Branch TDAP 2020-03-15 Completed [facility] 00:00:00 [facility] TDAP 2020-03-15 Completed [facility] of 00:00:00 [facility] TDAP 2020-03-15 Completed [facility] of 00:00:00 [facility] TDAP 2020-03-15 Completed [facility] of 00:00:00 [facility] TDAP 2020-03-15 Completed [facility] of 00:00:00 [facility] TDAP 2020-03-15 Completed [facility] of 00:00:00 [facility] TDAP 2020-03-15 Completed [facility] of 00:00:00 [facility] TDAP 2020-03-15 Completed [facility] 00:00:00 [facility] TDAP 2020-03-15 Completed [facility] 00:00:00 [facility] TDAP 2020-03-15 Completed [facility] 00:00:00 [facility] TDAP 2020-03-15 Completed [facility] of 00:00:00 [facility] TDAP 2020-03-15 Completed [facility] 00:00:00 [facility] TDAP 2020-03-15 Completed [facility] 00:00:00 [facility] TDAP 2020-03-15 Completed [facility] 00:00:00 [facility] TDAP 2020-03-15 Completed [facility] 00:00:00 [facility] TDAP 2020-03-15 Completed [facility] 00:00:00 [facility] TDAP 2020-03-15 Completed [facility] 00:00:00 [facility] TDAP 2020-03-15 Completed [facility] of 00:00:00 [facility] TDAP 2020-03-15 Completed University of 00:00:00 [facility] TDAP 2020-03-15 Completed [facility] of 00:00:00 [facility] TDAP 2020-03-15 Completed [facility] of 00:00:00 [facility] TDAP 2020-03-15 Completed [facility] 00:00:00 [facility] TDAP 2020-03-15 Completed [facility] 00:00:00 [facility] TDAP 2020-03-15 Completed [facility] of 00:00:00 [facility] [place] TDAP 2020-03-15 Completed University of 00:00:00 [facility] TDAP 2020-03-15 Completed University of 00:00:00 [facility] TDAP 2020-03-15 Completed [facility] 00:00:00 [facility] TDAP 2020-03-15 Completed University of 00:00:00 [facility] TDAP 2020-03-15 Completed [facility] 00:00:00 [facility] TDAP 2020-03-15 Completed [facility] 00:00:00 [facility] TDAP 2020-03-15 Completed [facility] 00:00:00 [facility] TDAP 2020-03-15 Completed [facility] of 00:00:00 [facility] TDAP 2020-03-15 Completed [facility] of 00:00:00 [facility] TDAP 2020-03-15 Completed University of 00:00:00 [facility] TDAP 2020-03-15 Completed University of 00:00:00 [facility] TDAP 2020-03-15 Completed [facility] of 00:00:00 [facility] TDAP 2020-03-15 Completed University of 00:00:00 [facility] TDAP 2020-03-15 Completed University of 00:00:00 [facility] TDAP 2020-03-15 Completed University of 00:00:00 [facility] TDAP 2020-03-15 Completed University of 00:00:00 [facility] TDAP 2020-03-15 Completed University of 00:00:00 [facility] TDAP 2020-03-15 Completed [facility] of 00:00:00 [facility] TDAP 2020-03-15 Completed University of 00:00:00 [facility] TDAP 2020-03-15 Completed [facility] of 00:00:00 [facility] TDAP 2020-03-15 Completed University of 00:00:00 [facility] TDAP 2020-03-15 Completed University of 00:00:00 [facility] TDAP 2020-03-15 Completed [facility] of 00:00:00 [facility] TDAP 2020-03-15 Completed [facility] of 00:00:00 [facility] TDAP 2020-03-15 Completed [facility] of 00:00:00 [facility] TDAP 2020-03-15 Completed [facility] of 00:00:00 [facility] TDAP 2020-03-15 Completed [facility] of 00:00:00 [facility] TDAP 2020-03-15 Completed University of 00:00:00 [facility] TDAP 2020-03-15 Completed [facility] of 00:00:00 [facility] TDAP 2020-03-15 Completed [facility] of 00:00:00 [facility] TDAP 2020-03-15 Completed [facility] of 00:00:00 [facility] TDAP 2020-03-15 Completed [facility] of 00:00:00 [facility] TDAP 2020-03-15 Completed [facility] of 00:00:00 [facility] TDAP 2020-03-15 Completed [facility] of 00:00:00 [facility] TDAP Unknown Completed [facility] Influenza Virus Unknown Completed Universit y of Vaccine Quad .5 mL [facility] 6+ MO Branch (FLUZONE/FLULAVAL/F LUARIX) SARS-COV-2 COVID-19 Unknown Completed Unive rsity of PFIZER VACCINE [facility] SARS-COV-2 COVID-19 Unknown Completed Unive rsity of PFIZER VACCINE [facility] TDAP Unknown Completed [facility] TDAP Unknown Completed [facility] Influenza Virus Unknown Completed Universit y of Vaccine Quad .5 mL [facility] 6+ MO Branch (FLUZONE/FLULAVAL/F LUARIX) SARS-COV-2 COVID-19 Unknown Completed Unive rsity of PFIZER VACCINE [facility] SARS-COV-2 COVID-19 Unknown Completed Unive rsity of PFIZER VACCINE [facility] TDAP Unknown Completed [facility] TDAP Unknown Completed [facility] Influenza Virus Unknown Completed Universit y of Vaccine Quad .5 mL [facility] 6+ MO Branch (FLUZONE/FLULAVAL/F LUARIX) SARS-COV-2 COVID-19 Unknown Completed Unive rsity of PFIZER VACCINE [facility] SARS-COV-2 COVID-19 Unknown Completed Unive rsity of PFIZER VACCINE [facility] TDAP Unknown Completed [facility] TDAP Unknown Completed [facility] Influenza Virus Unknown Completed Universit y of Vaccine Quad .5 mL [facility] 6+ MO Branch (FLUZONE/FLULAVAL/F LUARIX) SARS-COV-2 COVID-19 Unknown Completed Unive rsity of PFIZER VACCINE [facility] SARS-COV-2 COVID-19 Unknown Completed Unive rsity of PFIZER VACCINE [facility] TDAP Unknown Completed [facility] TDAP Unknown Completed [facility] Influenza Virus Unknown Completed Universit y of Vaccine Quad .5 mL [facility] 6+ MO Branch (FLUZONE/FLULAVAL/F LUARIX) SARS-COV-2 COVID-19 Unknown Completed Unive rsity of PFIZER VACCINE [facility] SARS-COV-2 COVID-19 Unknown Completed Unive rsity of PFIZER VACCINE [facility] TDAP Unknown Completed [facility] Influenza Virus Unknown Completed Universit y of Vaccine Quad , [facility] dical Preserv and ABX Branch Free 6 MO-64 YRS (FLUCELVAX) TDAP Unknown Completed [facility] Influenza Virus Unknown Completed Universit y of Vaccine Quad .5 mL [facility] 6+ MO Branch (FLUZONE/FLULAVAL/F LUARIX) SARS-COV-2 COVID-19 Unknown Completed Unive rsity of PFIZER VACCINE [facility] SARS-COV-2 COVID-19 Unknown Completed Unive rsity of PFIZER VACCINE [facility] TDAP Unknown Completed [facility] Influenza Virus Unknown Completed Universit y of Vaccine Quad IM, [facility] dical Preserv and ABX Branch Free 6 MO-64 YRS (FLUCELVAX) TDAP Unknown Completed [facility] Influenza Virus Unknown Completed [facility] y of Vaccine Quad .5 mL [facility] 6+ MO Branch (FLUZONE/FLULAVAL/F LUARIX) SARS-COV-2 COVID-19 Unknown Completed Unive rsity of PFIZER VACCINE [facility] SARS-COV-2 COVID-19 Unknown Completed Unive rsity of PFIZER VACCINE [facility] TDAP Unknown Completed [facility] Influenza Virus Unknown Completed Universit y of Vaccine Quad IM, [facility] dical Preserv and ABX Branch Free 6 MO-64 YRS (FLUCELVAX) TDAP Unknown Completed [place] [facility] Influ[facility] Virus Unknown Completed [facility] Vaccine Quad .5 mL [facility] 6+ MO Branch (FLUZONE/FLULAVAL/F LUARIX) SARS-COV-2 COVID-19 Unknown Completed Unive rsity of PFIZER VACCINE [facility] SARS-COV-2 COVID-19 Unknown Completed Unive rsity of PFIZER VACCINE [facility] TDAP Unknown Completed [facility] Influenza Virus Unknown Completed [facility]it y of Vaccine Quad IM, [facility] dical Preserv and ABX Branch Free 6 MO-64 YRS (FLUCELVAX) TDAP Unknown Completed [facility] Influenza Virus Unknown Completed [facility] of Vaccine Quad .5 mL [facility] 6+ MO Branch (FLUZONE/FLULAVAL/F LUARIX) SARS-COV-2 COVID-19 Unknown Completed Unive rsity of PFIZER VACCINE [facility] SARS-COV-2 COVID-19 Unknown Completed Unive rsity of PFIZER VACCINE [facility] TDAP Unknown Completed [facility] Influenza Virus Unknown Completed [facility] of Vaccine Quad IM, [facility] dical Preserv and ABX Branch Free 6 MO-64 YRS (FLUCELVAX) TDAP Unknown Completed [facility] Influenza Virus Unknown Completed [facility] Vaccine Quad .5 mL [facility] 6+ MO Branch (FLUZONE/FLULAVAL/F LUARIX) SARS-COV-2 COVID-19 Unknown Completed Unive rsity of PFIZER VACCINE [facility] SARS-COV-2 COVID-19 Unknown Completed Unive rsity of PFIZER VACCINE [facility] TDAP Unknown Completed [facility] Influenza Virus Unknown Completed [facility] of Vaccine Quad IM, [facility] dical Preserv and ABX Branch Free 6 MO-64 YRS (FLUCELVAX) TDAP Unknown Completed [facility] Influenza Virus Unknown Completed [facility] Vaccine Quad .5 mL [facility] 6+ MO Branch (FLUZONE/FLULAVAL/F LUARIX) SARS-COV-2 COVID-19 Unknown Completed Unive rsity of PFIZER VACCINE [facility] SARS-COV-2 COVID-19 Unknown Completed Unive rsity of PFIZER VACCINE [facility] TDAP Unknown Completed [facility] Influenza Virus Unknown Completed [facility] of Vaccine Quad IM, [facility] dical Preserv and ABX Branch Free 6 MO-64 YRS (FLUCELVAX) TDAP Unknown Completed [facility] Influenza Virus Unknown Completed [facility] Vaccine Quad .5 mL [facility] 6+ MO Branch (FLUZONE/FLULAVAL/F LUARIX) SARS-COV-2 COVID-19 Unknown Completed Unive rsity of PFIZER VACCINE [facility] SARS-COV-2 COVID-19 Unknown Completed Unive rsity of PFIZER VACCINE [facility] TDAP Unknown Completed [facility] Influenza Virus Unknown Completed [facility] of Vaccine Quad IM, [facility] dical Preserv and ABX Branch Free 6 MO-64 YRS (FLUCELVAX) TDAP Unknown Completed [facility] Influenza Virus Unknown Completed [facility] Vaccine Quad .5 mL [facility] 6+ MO Branch (FLUZONE/FLULAVAL/F LUARIX) SARS-COV-2 COVID-19 Unknown Completed Unive rsity of PFIZER VACCINE [facility] SARS-COV-2 COVID-19 Unknown Completed Unive rsity of PFIZER VACCINE [facility] TDAP Unknown Completed [facility] Influenza Virus Unknown Completed [facility] of Vaccine Quad IM, [facility] dical Preserv and ABX Branch Free 6 MO-64 YRS (FLUCELVAX) TDAP Unknown Completed [facility] Influenza Virus Unknown Completed [facility] Vaccine Quad .5 mL [facility] 6+ MO Branch (FLUZONE/FLULAVAL/F LUARIX) SARS-COV-2 COVID-19 Unknown Completed Unive rsity of PFIZER VACCINE [facility] SARS-COV-2 COVID-19 Unknown Completed Unive rsity of PFIZER VACCINE [facility] TDAP Unknown Completed [facility] Influenza Virus Unknown Completed [facility] of Vaccine Quad IM, [facility] dical Preserv and ABX Branch Free 6 MO-64 YRS (FLUCELVAX) TDAP Unknown Completed [facility] Influenza Virus Unknown Completed [facility] Vaccine Quad .5 mL [facility] 6+ MO Branch (FLUZONE/FLULAVAL/F LUARIX) SARS-COV-2 COVID-19 Unknown Completed [facility]ive rsity of PFIZER VACCINE [facility] SARS-COV-2 COVID-19 Unknown Completed [facility]ive rsity of PFIZER VACCINE [facility] TDAP Unknown Completed [facility] Influenza Virus Unknown Completed [facility] of Vaccine Quad IM, [facility] dical Preserv and ABX Branch Free 6 MO-64 YRS (FLUCELVAX) TDAP Unknown Completed [facility] Influenza Virus Unknown Completed [facility] Vaccine Quad .5 mL [facility] 6+ MO Branch (FLUZONE/FLULAVAL/F LUARIX) SARS-COV-2 COVID-19 Unknown Completed [facility]ive rsity of PFIZER VACCINE [facility] SARS-COV-2 COVID-19 Unknown Completed Unive rsity of PFIZER VACCINE [facility] TDAP Unknown Completed [facility] Influenza Virus Unknown Completed [facility] of Vaccine Quad IM, [facility] dical Preserv and ABX Branch Free 6 MO-64 YRS (FLUCELVAX) TDAP Unknown Completed [facility] Influenza Virus Unknown Completed [facility] Vaccine Quad .5 mL [facility] 6+ MO Branch (FLUZONE/FLULAVAL/F LUARIX) SARS-COV-2 COVID-19 Unknown Completed [facility]ive rsity of PFIZER VACCINE [facility] SARS-COV-2 COVID-19 Unknown Completed Unive rsity of PFIZER VACCINE [facility] TDAP Unknown Completed [facility] Influenza Virus Unknown Completed [facility] of Vaccine Quad IM, [facility] dical Preserv and ABX Branch Free 6 MO-64 YRS (FLUCELVAX) TDAP Unknown Completed [facility] Influenza Virus Unknown Completed [facility] of Vaccine Quad .5 mL [facility] 6+ MO Branch (FLUZONE/FLULAVAL/F LUARIX) SARS-COV-2 COVID-19 Unknown Completed [facility] PFIZER VACC[facility] SARS-COV-2 COVID-19 Unknown Completed [facility]ive rsity of PFIZER VACCINE [facility] TDAP Unknown Completed [facility] Influenza Virus Unknown Completed [facility] of Vaccine Quad IM, [facility] dical Preserv and ABX Branch Free 6 MO-64 YRS (FLUCELVAX) Vital Signs Vital Name Observation Time Observation Value Comments Source Systolic blood 2023-06-01 15:19:00 130 mm[Hg] Univer sity of pressure [facility] Diastolic blood 2023-06-01 15:19:00 84 mm[Hg] Unive rsity of pressure [facility] Heart rate 2023-06-01 15:19:00 83 /min [facility] Body temperature 2023-06-01 15:19:00 36.78 Steffanie [facility] 2023-06-01 15:19:00 18 /min [facility] Body height 2023-06-01 15:19:00 167.6 cm [facility] Body weight 2023-06-01 15:19:00 108.863 kg [facility] BMI 2023-06-01 15:19:00 38.74 kg/m2 [facility] Systolic blood 2023-05-26 21:30:00 125 mm[Hg] Univer sity of pressure [facility] Diastolic blood 2023-05-26 21:30:00 75 mm[Hg] Unive rsity of pressure [facility] Heart rate 2023-05-26 21:30:00 73 /min [facility] Body temperature 2023-05-26 21:30:00 36.39 Steffanie [facility] rate 2023-05-26 21:30:00 18 /min [facility] Oxygen saturation in 2023-05-26 21:30:00 99 /min [place] [facility] Arterial blood by [facility] Pulse oxim[facility] Body height 2023-05-25 11:15:00 167.6 cm [facility] Body weight 2023-05-25 11:15:00 116.484 kg [facility] BMI 2023-05-25 11:15:00 41.45 kg/m2 [facility] Heart rate 2023-05-25 15:00:00 67 /min [facility] Oxygen saturation in 2023-05-25 15:00:00 100 /min [facility] Ar[facility] Systolic blood 2023-05-25 13:00:00 134 mm[Hg] [facility]iver [facility]ity of pressure [facility] Diastolic blood 2023-05-25 13:00:00 82 mm[Hg] [facility]ive [facility]ity of pressure [facility] Body temperature 2023-05-25 11:15:00 36.78 Steffanie [facility] Respiratory rate 2023-05-25 11:15:00 16 /min [facility] Body height 2023-05-25 11:15:00 167.6 cm [facility] Body weight 2023-05-25 11:15:00 116.484 kg [facility] BMI 2023-05-25 11:15:00 41.45 kg/m2 [facility] Respiratory rate 2023-05-25 14:44:00 15 /min [facility] Systolic blood 2023-05-21 15:16:00 122 mm[Hg] [facility]iver [facility]ity of pressure [facility] Diastolic blood 2023-05-21 15:16:00 77 mm[Hg] [facility] of pressure [facility] Heart rate 2023-05-21 15:16:00 74 /min [facility] Body temperature 2023-05-21 15:16:00 36.61 Steffanie [facility] Body height 2023-05-21 15:16:00 167.6 cm [facility] Body weight 2023-05-21 15:16:00 117.663 kg [facility] BMI 2023-05-21 15:16:00 41.87 kg/m2 [facility] Systolic blood 2023-05-19 13:56:00 124 mm[Hg] Univer [facility]ity of pressure [facility] Diastolic blood 2023-05-19 13:56:00 81 mm[Hg] [facility]ive [facility]ity of pressure [facility] Heart rate 2023-05-19 13:56:00 116 /min [facility] Body temperature 2023-05-19 13:56:00 36.61 Steffanie [facility] Respiratory rate 2023-05-19 13:56:00 16 /min [facility] Body height 2023-05-19 13:56:00 167.6 cm [facility] Body weight 2023-05-19 13:56:00 116.574 kg [facility] BMI 2023-05-19 13:56:00 41.48 kg/m2 [facility] Systolic blood 2023-05-17 16:04:00 127 mm[Hg] [facility]iver [facility]ity of pressure [facility] Diastolic blood 2023-05-17 16:04:00 81 mm[Hg] Unive rsity of pressure [facility] Heart rate 2023-05-17 16:04:00 80 /min [facility] Body temperature 2023-05-17 16:04:00 36.78 Steffanie [facility] Body height 2023-05-17 16:04:00 167.6 cm [facility] Body weight 2023-05-17 16:04:00 117.028 kg [facility] BMI 2023-05-17 16:04:00 41.64 kg/m2 [facility] Systolic blood 2023-05-12 14:14:00 115 mm[Hg] Univer [facility]ity of pressure [facility] Diastolic blood 2023-05-12 14:14:00 80 mm[Hg] [facility]ive rsity of pressure [facility] Heart rate 2023-05-12 14:14:00 123 /min [facility] Body temperature 2023-05-12 14:14:00 36.28 Steffanie [facility] Respiratory rate 2023-05-12 14:14:00 16 /min [facility] Body height 2023-05-12 14:14:00 167.6 cm [facility] Body weight 2023-05-12 14:14:00 116.121 kg [facility] BMI 2023-05-12 14:14:00 41.32 kg/m2 [facility] Systolic blood 2023-05-05 13:42:00 119 mm[Hg] [facility]iver [facility]ity of pressure [facility] Diastolic blood 2023-05-05 13:42:00 80 mm[Hg] [facility] of pressure [facility] Heart rate 2023-05-05 13:42:00 88 /min [facility] Body temperature 2023-05-05 13:42:00 36.83 Steffanie [facility] Respiratory rate 2023-05-05 13:42:00 16 /min [facility] Body height 2023-05-05 13:42:00 167.6 cm [facility] Body weight 2023-05-05 13:42:00 115.577 kg [facility] BMI 2023-05-05 13:42:00 41.13 kg/m2 [facility] Systolic blood 2023-04-28 15:09:00 109 mm[Hg] [facility]iver [facility] of pressure [facility] Diastolic blood 2023-04-28 15:09:00 73 mm[Hg] [facility] of pressure [facility] Heart rate 2023-04-28 15:09:00 85 /min [facility] Respiratory rate 2023-04-28 15:09:00 18 /min [facility] Body height 2023-04-28 15:09:00 167.6 cm [facility] Body weight 2023-04-28 15:09:00 116.574 kg [facility] BMI 2023-04-28 15:09:00 41.48 kg/m2 [facility] Systolic blood 2023-04-21 15:08:00 109 mm[Hg] [facility]iver [facility]ity of pressure [facility] Diastolic blood 2023-04-21 15:08:00 71 mm[Hg] [facility]ive [facility]ity of pressure [facility] Heart rate 2023-04-21 15:08:00 91 /min [facility] Body temperature 2023-04-21 15:08:00 36.72 Steffanie [facility] Respiratory rate 2023-04-21 15:08:00 18 /min [facility] Body height 2023-04-21 15:08:00 167.6 cm [facility] Body weight 2023-04-21 15:08:00 114.941 kg [facility] BMI 2023-04-21 15:08:00 40.90 kg/m2 [facility] Systolic blood 2023-04-19 18:57:00 116 mm[Hg] Univer [facility]ity of pressure [facility] Diastolic blood 2023-04-19 18:57:00 72 mm[Hg] [facility]ive [facility]ity of pressure [facility] Heart rate 2023-04-19 18:57:00 88 /min [facility] Body temperature 2023-04-19 18:57:00 36.83 Steffanie [facility] Respiratory rate 2023-04-19 18:57:00 16 /min [facility] Body height 2023-04-19 18:57:00 167.6 cm [facility] Body weight 2023-04-19 18:57:00 114.17 kg [facility] BMI 2023-04-19 18:57:00 40.63 kg/m2 [facility] of [facility] Oxygen saturation in 2023-04-19 18:57:00 97 /min [facility] Arterial blood by [facility] Diastolic blood 2023-04-07 15:33:00 73 mm[Hg] Unive rsity of pressure [facility] Heart rate 2023-04-07 15:33:00 79 /min [facility] Body temperature 2023-04-07 15:33:00 36.78 Steffanie Univ ersity of [facility] Respiratory rate 2023-04-07 15:33:00 17 /min [facility] Body height 2023-04-07 15:33:00 167.6 cm [facility] Body weight 2023-04-07 15:33:00 116.121 kg [facility] BMI 2023-04-07 15:33:00 41.32 kg/m2 [facility] Systolic blood 2023-04-07 15:33:00 116 mm[Hg] Univer [facility]ity of pressure [facility] Systolic blood 2023-03-24 19:56:00 117 mm[Hg] Univer [facility]ity of pressure [facility] Diastolic blood 2023-03-24 19:56:00 74 mm[Hg] Unive rsity of pressure [facility] Heart rate 2023-03-24 19:56:00 79 /min [facility] Body temperature 2023-03-24 19:56:00 36.67 Setffanie [facility] Respiratory rate 2023-03-24 19:56:00 18 /min Univ [facility] Body height 2023-03-24 19:56:00 167.6 cm [facility] Body weight 2023-03-24 19:56:00 116.257 kg [facility] BMI 2023-03-24 19:56:00 41.37 kg/m2 [facility] Systolic blood 2023-03-10 21:00:00 114 mm[Hg] Univer [facility]ity of pressure [facility] Diastolic blood 2023-03-10 21:00:00 73 mm[Hg] Unive rsity of pressure [facility] Heart rate 2023-03-10 21:00:00 77 /min [facility] Body temperature 2023-03-10 21:00:00 36.94 Steffanie [facility] Respiratory rate 2023-03-10 21:00:00 16 /min [facility] Body height 2023-03-10 21:00:00 167.6 cm [facility] Body weight 2023-03-10 21:00:00 115.032 kg [facility] BMI 2023-03-10 21:00:00 40.93 kg/m2 [facility] Oxygen saturation in 2023-03-10 21:00:00 98 /min [facility] Arterial blood by [facility] Systolic blood 2023-02-17 17:55:00 126 mm[Hg] Univer sity of pressure [facility] Diastolic blood 2023-02-17 17:55:00 79 mm[Hg] Unive rsity of pressure [facility] Heart rate 2023-02-17 17:55:00 75 /min [facility] Body temperature 2023-02-17 17:55:00 37 Steffanie [facility] Respiratory rate 2023-02-17 17:55:00 16 /min [facility] Body height 2023-02-17 17:55:00 167.6 cm [facility] Body weight 2023-02-17 17:55:00 111.993 kg [facility] BMI 2023-02-17 17:55:00 39.85 kg/m2 [facility] Oxygen saturation in 2023-02-17 17:55:00 98 /min [facility] of Arterial blood by [facility] [employer] [facility] Pulse oximetry Branch Systolic blood 2023-01-20 21:04:00 116 mm[Hg] Univer sity of pressure [facility] Diastolic blood 2023-01-20 21:04:00 72 mm[Hg] Unive rsity of pressure [facility] Heart rate 2023-01-20 21:04:00 79 /min [facility] Body temperature 2023-01-20 21:04:00 37 Steffanie [facility] Respiratory rate 2023-01-20 21:04:00 16 /min [facility] Body height 2023-01-20 21:04:00 167.6 cm [facility] Body weight 2023-01-20 21:04:00 109.907 kg [facility] BMI 2023-01-20 21:04:00 39.11 kg/m2 [facility] Oxygen saturation in 2023-01-20 21:04:00 98 /min [facility] of Arterial blood by [facility] Pulse oximetry Branch Systolic blood 2022-12-23 15:06:00 118 mm[Hg] Univer sity of pressure [facility] Diastolic blood 2022-12-23 15:06:00 76 mm[Hg] Unive rsity of pressure [facility] Heart rate 2022-12-23 15:06:00 77 /min [facility] Respiratory rate 2022-12-23 15:06:00 18 /min Univ [facility] Body height 2022-12-23 15:06:00 167.6 cm [facility] Body weight 2022-12-23 15:06:00 105.688 kg [facility] BMI 2022-12-23 15:06:00 37.61 kg/m2 [facility] Systolic blood 2022-11-25 16:19:00 116 mm[Hg] Univer [facility]ity of pressure [facility] Diastolic blood 2022-11-25 16:19:00 77 mm[Hg] Unive rsity of pressure [facility] Heart rate 2022-11-25 16:19:00 72 /min [facility] Respiratory rate 2022-11-25 16:19:00 18 /min [facility] Body height 2022-11-25 16:19:00 167.6 cm [facility] Body weight 2022-11-25 16:19:00 103.874 kg [facility] BMI 2022-11-25 16:19:00 36.96 kg/m2 [facility] Systolic blood 2022-10-27 19:07:00 121 mm[Hg] Univer [facility]ity of pressure [facility] Diastolic blood 2022-10-27 19:07:00 81 mm[Hg] Unive rsity of pressure [facility] Heart rate 2022-10-27 19:07:00 71 /min [facility] Respiratory rate 2022-10-27 19:07:00 18 /min [facility] Body height 2022-10-27 19:07:00 167.6 cm [facility] Body weight 2022-10-27 19:07:00 103.42 kg [facility] BMI 2022-10-27 19:07:00 36.80 kg/m2 [facility] Systolic blood 2020-07-02 17:17:00 132 mm[Hg] Univer [facility]ity of pressure [facility] Diastolic blood 2020-07-02 17:17:00 88 mm[Hg] Unive rsity of pressure [facility] Heart rate 2020-07-02 17:17:00 57 /min [facility] Body temperature 2020-07-02 17:17:00 36.83 Steffanie [facility] Respiratory rate 2020-07-02 17:17:00 18 /min [facility] Body height 2020-07-02 17:17:00 167.6 cm [facility] Body weight 2020-07-02 17:17:00 111.585 kg [facility] BMI 2020-07-02 17:17:00 39.71 kg/m2 [facility] Systolic blood 2020-07-02 17:17:00 132 mm[Hg] Univer [facility]ity of pressure [facility] Diastolic blood 2020-07-02 17:17:00 88 mm[Hg] Unive rsity of pressure [facility] Heart rate 2020-07-02 17:17:00 57 /min [facility] Body temperature 2020-07-02 17:17:00 36.83 Steffanie [facility] Respiratory rate 2020-07-02 17:17:00 18 /min [facility] Body height 2020-07-02 17:17:00 167.6 cm [facility] Body weight 2020-07-02 17:17:00 111.585 kg [facility] BMI 2020-07-02 17:17:00 39.71 kg/m2 [facility] Systolic blood 2020-06-11 20:35:00 108 mm[Hg] Univer [facility]ity of pressure [facility] Diastolic blood 2020-06-11 20:35:00 70 mm[Hg] Unive rsity of pressure [facility] Heart rate 2020-06-11 20:35:00 67 /min [facility] Body temperature 2020-06-11 20:35:00 36.72 Steffanie [facility] Respiratory rate 2020-06-11 20:35:00 18 /min [facility] Body height 2020-06-11 20:35:00 167.6 cm [facility] Body weight 2020-06-11 20:35:00 111.676 kg [facility] BMI 2020-06-11 20:35:00 39.74 kg/m2 [facility] of [facility] Systolic blood 2020-06-11 20:35:00 108 mm[Hg] Univer sity of pressure [facility] Diastolic blood 2020-06-11 20:35:00 70 mm[Hg] Unive rsity of pressure [facility] Heart rate 2020-06-11 20:35:00 67 /min [facility]i ty of [facility] Body temperature 2020-06-11 20:35:00 36.72 Steffanie Univ ers[facility] of [facility] Respiratory rate 2020-06-11 20:35:00 18 /min Univ ersity of [facility] Body height 2020-06-11 20:35:00 167.6 cm [facility] of [facility] Body weight 2020-06-11 20:35:00 111.676 kg [facility] of [facility] BMI 2020-06-11 20:35:00 39.74 kg/m2 [facility] of [facility] Systolic blood 2020-06-04 22:30:00 121 mm[Hg] Univer sity of pressure [facility] Diastolic blood 2020-06-04 22:30:00 67 mm[Hg] Unive rsity of pressure [facility] Heart rate 2020-06-04 22:30:00 68 /min [facility] of [facility] Body temperature 2020-06-04 22:30:00 37 Steffanie Univ ers[facility] of [facility] Respiratory rate 2020-06-04 22:30:00 18 /min Univ ersity of [facility] Oxygen saturation in 2020-06-04 22:30:00 97 /min [facility] Arterial blood by [facility] Body height 2020-06-03 11:00:00 167.6 cm [facility] Body weight 2020-06-03 11:00:00 117.391 kg [facility] BMI 2020-06-03 11:00:00 41.79 kg/m2 [facility] of [facility] Systolic blood 2020-06-04 22:30:00 121 mm[Hg] Univer sity of pressure [facility] Diastolic blood 2020-06-04 22:30:00 67 mm[Hg] Unive rsity of pressure [facility] Heart rate 2020-06-04 22:30:00 68 /min [facility]i [facility] of [facility] Body temperature 2020-06-04 22:30:00 37 Steffanie Univ ersity of [facility] Respiratory rate 2020-06-04 22:30:00 18 /min Univ ersity of [facility] Oxygen saturation in 2020-06-04 22:30:00 97 /min [facility] Ar[facility]ial blood [facility] Body height 2020-06-03 11:00:00 167.6 cm [facility] [place] Body weight 2020-06-03 11:00:00 117.391 kg [facility] BMI 2020-06-03 11:00:00 41.79 kg/m2 [facility] of [facility] Systolic blood 2020-05-28 21:25:00 113 mm[Hg] Univer sity of pressure [facility] Diastolic blood 2020-05-28 21:25:00 75 mm[Hg] Unive rsity of pressure [facility] Heart rate 2020-05-28 21:25:00 73 /min [facility] of [facility] Body temperature 2020-05-28 21:25:00 36.89 Steffanie Univ ersity of [facility] Respiratory rate 2020-05-28 21:25:00 18 /min Univ ersity of [facility] Body height 2020-05-28 21:25:00 167.6 cm [facility] [place] Body weight 2020-05-28 21:25:00 118.389 kg [facility] BMI 2020-05-28 21:25:00 42.13 kg/m2 [facility] Systolic blood 2020-05-28 21:25:00 113 mm[Hg] Univer sity of pressure [facility] Diastolic blood 2020-05-28 21:25:00 75 mm[Hg] Unive rsity of pressure [facility] Heart rate 2020-05-28 21:25:00 73 /min [facility] Body temperature 2020-05-28 21:25:00 36.89 Steffanie [facility] Respiratory rate 2020-05-28 21:25:00 18 /min Univ ersity of [facility] Body height 2020-05-28 21:25:00 167.6 cm [facility] [place] Body weight 2020-05-28 21:25:00 118.389 kg [facility] BMI 2020-05-28 21:25:00 42.13 kg/m2 [facility] Systolic blood 2020-05-22 21:51:00 126 mm[Hg] [facility] Diastolic blood 2020-05-22 21:51:00 85 mm[Hg] [facility] Heart rate 2020-05-22 21:51:00 77 /min [facility] Body temperature 2020-05-22 21:51:00 36.89 Steffanie [facility] Respiratory rate 2020-05-22 21:51:00 18 /min [facility] Body height 2020-05-22 21:51:00 167.6 cm [facility] Body weight 2020-05-22 21:51:00 117.935 kg [facility] BMI 2020-05-22 21:51:00 41.97 kg/m2 [facility] Systolic blood 2020-05-06 21:31:00 127 mm[Hg] [facility] Diastolic blood 2020-05-06 21:31:00 74 mm[Hg] [facility] Heart rate 2020-05-06 21:31:00 83 /min [facility] Body temperature 2020-05-06 21:31:00 37 Steffanie [facility] Respiratory rate 2020-05-06 21:31:00 18 /min [facility] Body height 2020-05-06 21:31:00 167.6 cm [facility] Body weight 2020-05-06 21:31:00 115.214 kg [facility] BMI 2020-05-06 21:31:00 41.00 kg/m2 [facility] Systolic blood 2020-04-18 16:08:00 124 mm[Hg] [facility] Diastolic blood 2020-04-18 16:08:00 73 mm[Hg] [facility] Heart rate 2020-04-18 16:08:00 82 /min [facility] Body temperature 2020-04-18 16:08:00 36.83 Steffanie [facility] Respiratory rate 2020-04-18 16:08:00 18 /min [facility] Body height 2020-04-18 16:08:00 167.6 cm [facility] Body weight 2020-04-18 16:08:00 114.034 kg [facility] BMI 2020-04-18 16:08:00 40.58 kg/m2 [facility] Systolic blood 2020-04-05 19:30:00 113 mm[Hg] [facility] Diastolic blood 2020-04-05 19:30:00 72 mm[Hg] [facility] Heart rate 2020-04-05 19:30:00 80 /min [facility] Body temperature 2020-04-05 19:30:00 36.78 Steffanie [facility] Respiratory rate 2020-04-05 19:30:00 18 /min [facility] Body height 2020-04-05 19:30:00 167.6 cm [facility] Body weight 2020-04-05 19:30:00 112.583 kg [facility] BMI 2020-04-05 19:30:00 40.06 kg/m2 [facility] Body weight 2020-03-15 14:13:00 109.77 kg [facility] BMI 2020-03-15 14:13:00 39.06 kg/m2 [facility] Systolic blood 2020-03-15 14:13:00 117 mm[Hg] [facility] Diastolic blood 2020-03-15 14:13:00 69 mm[Hg] [facility] Heart rate 2020-03-15 14:13:00 78 /min [facility] Body temperature 2020-03-15 14:13:00 36.89 Steffanie [facility] Respiratory rate 2020-03-15 14:13:00 18 /min [facility] Body height 2020-03-15 14:13:00 167.6 cm [facility] Procedures Procedure Date / Time Performing Clinician Source Performed GLUCOSE FASTING 2023-05-26 11:17:00 AdDolores sellers o f [facility] GLUCOSE FASTING 2023-05-26 11:17:00 Adum, Dolores Bronson [facility] CBC WITH DIFF 2023-05-26 08:11:00 Adum, Dolores Aiyana [facility] CBC WITH DIFF 2023-05-26 08:11:00 Adum, Dolores Aiyana [facility] CENTRAL NEURAXIAL BLOCK 2023-05-25 13:15:00 [facility] SE[facility] 2023-05-25 12:49:00 Adum, Dolores Bronson [facility] SALPINGECTOMY 2023-05-25 12:49:00 Adum, Dolores Aiyana [facility] SECTION 2023-05-25 12:49:00 Adum, Dolores Bronson [facility] SALPINGECTOMY 2023-05-25 12:49:00 Adum, Dolores Aiynaa [facility] POCT GLUCOSE (AUTOMATED) 2023-05-25 11:25:00 Adum, Dolores Bronson [facility] POCT GLUCOSE (AUTOMATED) 2023-05-25 11:25:00 Adum, Dolores Bronson [facility] NON-STRESS TEST 2023-05-21 20:07:28 Adum, Dolores Bronson [facility] DISABILITY/FMLA 2023-05-21 05:01:00 Doctor Unassigned, [facility] NON-STRESS TEST 2023-05-19 19:31:05 Adum, Dolores Bronson [facility] POCT URINALYSIS W/O 2023-05-19 00:00:00 Adum, Dolores Bronson [facility] SPECIFIC GRAVITY [facility] NON-STRESS TEST 2023-05-17 17:08:35 Kindra Griggs [facility] SECOND AND THIRD 2023-05-17 14:46:00 Adum, Dolores Bronson [facility] TRIMESTER ULTRASOUND Medical [facility] NON-STRESS TEST 2023-05-12 15:37:44 Adum, Dolores Bronson [facility] FLU VACC ([id number]), 6 2023-05-12 14:29:00 Adum, Dolores Bronson [facility] MO-64 YRS, .5ML, IM, QUAD Medica l Branch (FLUCELVAX) DSU PRE-OP 2023-05-12 05:01:00 Doctor Unassigned, [facility] DSU PRE-OP 2023-05-12 05:01:00 Doctor Unassigned, [facility] POCT URINALYSIS W/O 2023-05-12 00:00:00 Adum, Dolores Bronson [facility] SPECIFIC GRAVITY Medical [place] NON-STRESS TEST 2023-05-05 14:15:29 Adum, Dolores Bronson [facility] POCT URINALYSIS W/O 2023-05-05 00:00:00 Adum, Dolores Bronson [facility] SPECIFIC GRAVITY [facility] [place] NON-STRESS TEST 2023-04-28 16:21:53 Adum, Dolores Bronson [facility] POCT URINALYSIS W/O 2023-04-28 00:00:00 Adum, Dolores Bronson [facility] SPECIFIC GRAVITY [facility] NON-STRESS TEST 2023-04-21 16:10:10 Adum, Dolores Bronson [facility] POCT URINALYSIS W/O 2023-04-21 00:00:00 Adum, Dolores Bronson [facility] SPECIFIC GRAVITY [facility] MEDICAL RELEASE/CLEARANCE 2023-04-07 05:01:00 Doctor Unassigned, [facility] FORMS [facility] POCT URINALYSIS W/O 2023-04-07 00:00:00 Adum, Dolores Bronson [facility] SPECIFIC GRAVITY [facility] TDAP VACCINE, >11 YRS, IM 2023-03-24 20:07:43 Adum, [facility] POCT URINALYSIS W/O 2023-03-24 00:00:00 Adum, Dolores Bronson [facility] SPECIFIC GRAVITY [facility] [place] STERILIZATION CONSENT 2023-03-10 05:01:00 Doctor Unassigned, [facility] FORM [facility] POCT URINALYSIS W/O 2023-03-10 00:00:00 Adum, Dolores Bronson [facility] SPECIFIC GRAVITY [facility] POCT URINALYSIS W/O 2023-02-17 00:00:00 Adum, Dolores Bronson [facility] POCT URINALYSIS W/O 2023-01-20 00:00:00 Adum, Dolores Bronson [facility] POCT URINALYSIS W/O 2022-12-23 00:00:00 Adum, Dolores Bronson [facility] SCANNED LAB RESULTS 2022-11-30 05:01:00 Doctor Lalo, [facility] POCT URINALYSIS W/O 2022-11-25 00:00:00 Adum, Dolores Bronson [facility] US OB TRANSVAGINAL 2022-10-27 22:43:38 Adum, Dolores Bronson [facility] GC & CHLAMYDIA AMPLIFIED 2022-10-27 20:07:00 Adum, oDlores Bronson [facility] HIGH RISK HPV-THIN PREP 2022-10-27 20:07:00 Adum, Dolores Bronson [facility] TRICHOMONAS AMPLIFIED 2022-10-27 20:07:00 Adum, Dolores Bronson [facility] PAP SMEAR-LIQUID BASED-CP 2022-10-27 20:07:00 Adum, Dolores Bronson [facility] NEWS OPERATIONS MANAGER CLINIC ULTRASOUND 2022-10-27 05:01:00 Doctor Lalo, [facility] POCT TEST 2022-10-27 00:00:00 Adum, Dolores Bronson [facility] POCT URINALYSIS W/O 2022-10-27 00:00:00 Adum, Dolores Bronson [facility] CONSENT FOR ORAL 2020-07-02 06:01:00 Doctor May [facility] CONTRACEPTIVES [facility] POCT TEST 2020-07-02 00:00:00 Ene Ricci [facility] DME/SUPPLY JUSTIFICATION 2020-06-14 06:01:00 Doctor Lalo, [facility] CBC WITH DIFF 2020-06-04 09:08:00 Kindra Griggs [facility] VENOUS CORD GAS 2020-06-03 13:42:00 Anson Kindra Coats [facility] SECTION 2020-06-03 12:43:00 Kindra Griggs [facility] CBC WITH DIFF 2020-06-03 11:48:00 Kindra Griggs [facility] HEPATITIS B SURFACE 2020-06-03 11:48:00 Kindra Griggs [facility] ANTIGEN [facility] ADC OR RUPINDER ONLY - RPR 2020-06-03 11:48:00 [facility]gs [facility] HIV 1/2 AG-AB WITH REFLEX 2020-06-03 11:48:00 Kindra Griggs Un [facility] HB ABO GROUPING 2020-06-03 11:44:00 Kindra Griggs [facility] RHO (D) IMMUNE GLOBULIN 2020-06-03 11:44:00 Kindra Griggs [facility] HOSPITAL ADMISSION 2020-06-03 05:01:00 Doctor Unassigned, [facility] Name Medical [place] CONSENT/REFUSAL FOR 2020-05-31 16:00:16 Doctor Unakaileeigned, [facility] DIAGNOSIS AND TREATMENT [facility] [place] ASSIGNMENT OF BENEFITS 2020-05-31 15:59:58 Doctor Unassigned, [facility] Name Medical [place] POCT URINALYSIS W/O 2020-05-28 00:00:00 Kindra Griggs [facility] SPECIFIC GRAVITY [facility] >14 WEEKS US 2020-05-22 22:26:46 Kindra Griggs [facility] FLU VACC ([id number]), 6+ 2020-05-22 21:52:59 Kindra Griggs [facility] MONTHS, IM, QUAD Medical Branch DSU PRE-OP 2020-05-22 05:01:00 Doctor Lalo, [facility] POCT URINALYSIS W/O 2020-05-06 00:00:00 Kindra Griggs [facility] SPECIFIC GRAVITY Medical [place] POCT URINALYSIS W/O 2020-04-18 16:10:00 Ene Ricci [facility] SPECIFIC GRAVITY Medical [place] POCT URINALYSIS W/O 2020-04-05 00:00:00 GriggsKindra [facility] SPECIFIC GRAVITY [facility] GLUCOSE 1 HOUR POST 2020-03-15 16:38:00 [facility] WITH DIFF 2020-03-15 16:38:00 [facility] TDAP VACCINE, >11 YRS, IM 2020-03-15 14:22:25 Ene Ricci Un iversity [facility] POCT URINALYSIS W/O 2020-03-15 00:00:00 Ene Ricci [facility] AGREEMENTS AUTHORIZATIONS 2020-01-25 05:01:00 Doctor Unassigned, [facility] AND IRREVOCABLE [facility] ASSIGNMENTS (FORM 2000) Encounters Start End Encounter Admission Attending Care Care Encounter Source Date/Time Date/Time Type Type Clinicians Facility Department ID 2023-06-01 2023-06-01 [id number] Univers 10:00:00 10:19:11 DOLORES ortiz [facility] 2023-06-01 2023-06-01 Nurse Nurse, [facility] 1.2.840.114 [id number] Univers 10:00:00 10:19:11 Visit AdDolores sellers 350.1.13.10 [facility] 4.2.7.2.686 [facility] [id number] Sc dical NAL 134 [facility] 2023-05-25 2023-05-26 Inpatient [facility] [id number] Univers 05:57:00 18:30:00 DOLORES ortiz [facility] 2023-05-25 2023-05-26 [facility] 1.2.840.114 [id number] Univers 05:57:00 18:30:00 Encounter Dolores EDDY 350.1.13.10 [facility] 4.2.7.2.686 [facility] [id number] [address] 2023-05-26 2023-05-26 [facility] 1.2.046.003 [id number] Univers 00:00:00 00:00:00 Dolores MCFADDENTON 350.1.13.10 it[place] [id number] Sc dical NAL 134 [facility] 2023-05-26 2023-05-26 Telephone Ad, [facility] 1.2.625.223 [id number] Univers 00:00:00 00:00:00 Dolores Bronson [place] 350.1.13.10 it[place] [id number] Sc dical NAL 134 [facility] 2023-05-25 2023-05-25 Surgery Ad, [facility] 1.2.840.114 [id number] Univers 08:00:00 10:14:00 Dolores MCFADDENTON 350.1.13.10 [place] [id number] [address] 2023-05-25 2023-05-25 Anesthesia Odette Rene [facility] 1.2.840 .114 [id number] Univers 08:05:00 09:50:00 Event Sreekanth Jhaveri SURJIT 350.1.13. 10 [place] [id number] [address] 2023-05-24 2023-05-24 Front Desk Team Member Leni, Aj Lab Main [facility] 1.2.8 40.114 [id number] Univers 10:45:00 11:00:00 Visit Dolores Alcazar 350.1.13.10 it[place] of [place] [id number] Sc dical NAL 353 [facility] 2023-05-24 2023-05-24 [facility] [id number] Univers 10:45:00 10:45:00 DOLORES itbethany [facility] 2023-05-21 2023-05-21 Outpatient R AD, [facility] [id number] Univers 10:00:00 10:53:47 DOLORES ity [facility] 2023-05-21 2023-05-21 Routine Room, [facility] 1.2.840.1 14 [id number] Univers 10:00:00 10:53:47 Adum, Dolores EDDY 350.1.13.10 ity of Visit [facility] [place] [id number] Sc dical NAL [address] [place] [address] 2023-05-21 2023-05-21 Orders Doctor FLOR 1.2.840.114 [id number] Univers 00:00:00 00:00:00 Only Unassigned, AL[place] 350.1.13.10 ity of [place] [facility] 4.2.7.2.686 Dima as [id number] [address] 2023-05-19 2023-05-19 Outpatient R ADUM, [facility] [id number] Univers 09:00:00 11:06:35 DOLORES ity of [facility] 2023-05-19 2023-05-19 Routine 1, [facility] Nst Room [facility] 1.2.840. 114 [id number] Univers 09:00:00 11:06:35 Adum, Dolores ROMEO 350.1.13.10 ity of [place] [id number] [address] 2023-05-19 2023-05-19 Outpatient R [facility] [id number] Univers 10:00:00 10:00:00 ity of [facility] 2023-05-18 2023-05-18 Outpatient R [facility] [id number] Univers 10:00:00 10:00:00 ity of [facility] 2023-05-17 2023-05-17 Routine Room, [facility] 1.2.840.1 14 [id number] Univers 09:00:00 11:39:25 Heidi Vance 350.1.13.10 ity of Visit [facility] 4.2.7.2.[place] [id number] Sc dical [address] 2023-05-17 2023-05-17 Outpatient HEIDI CULP [facility] [id number] Univers 09:30:00 10:32:10 HEIDI VANCE [facility] 2023-05-17 2023-05-17 Front Desk Team Member Ultrasound, Curlyslim [facility] 1.2 .840.114 [id number] Univers 09:30:00 10:32:10 Visit Heidi Vance NEWS OPERATIONS MANAGER 350.1.13.10 ity of REGIONAL 4.2.7.2.686 Dima as MATERNAL [id number] [facility] & CHILD [address] [place] [address] 2023-05-14 2023-05-14 Outpatient R ADUM, [facility] [id number] Univers 08:00:00 08:28:26 DOLORES ortiz [facility] 2023-05-14 2023-05-14 Front Desk Team Member Lab, [facility] 1.2.840.1 14 [id number] Univers 08:00:00 08:15:00 Visit Admarlo, Dolores JENNINGS [facility].13.10 [facility] 4.2.7.2.686 [place] [id number] [address] MEDICAL OFFICE BUILDING 2023-05-12 2023-05-12 Outpatient R ADUM, [facility] [id number] Univers 09:00:00 10:08:52 DOLORES ortiz [facility] 2023-05-12 2023-05-12 Routine 1[facility] 1.2.840. 114 [id number] Univers 09:00:00 10:08:52 Adum, Dolores ROMEO 350.1.13.10 ity of [place] [id number] [address] 2023-05-05 2023-05-05 Outpatient R ADUM, [facility] [id number] Univers 08:00:00 09:19:38 DOLORES ortiz [facility] 2023-05-05 2023-05-05 Routine 1, Lk Nst Room [facility] 1.2.840. 114 [id number] Univers 08:00:00 09:19:38 Adum, Dolores ROMEO 350.1.13.10 ity of Visit WOMEN'S 4.2.7.2.686 [facility] HEALTH [id number] [address] 2023-04-28 2023-04-28 Outpatient R ADUM, [facility] [id number] Univers 10:00:00 11:20:17 DOLORES carminabethany [facility] 2023-04-28 2023-04-28 Routine 1, [facility] Room [facility] 1.2.840. 114 [id number] Univers 10:00:00 11:20:17 Adum, Dolores ROMEO 350.1.13.10 ity of Visit WOMEN'S 4.2.7.2.686 [facility] [id number] [address] 2023-04-21 2023-04-21 Routine 1, [facility] 1.2.840. 114 [id number] Univers 10:00:00 11:11:36 Adum, Dolores ROMEO 350.1.13.10 ity of Visit WOMEN'S 4.2.7.2.686 [facility] [id number] [address] 2023-04-21 2023-04-21 Outpatient R ADUM, [facility] [id number] Univers 10:00:00 11:11:36 DOLORES ortiz [facility] 2023-04-20 2023-04-20 Telephone Adum, [facility] 1.2.840.114 [id number] Univers 00:00:00 00:00:00 Dolores ROMEO 350.1.13.10 i ty of PEDIATRIC 4.2.7.2.686 [facility] [id number] [address] 2023-04-19 2023-04-19 Outpatient R ADUM, [facility] [id number] Univers 13:30:00 13:55:32 DOLORES grewalbethany [facility] 2023-04-19 2023-04-19 Nurse Nurse, [facility] 1.2.840.114 [id number] Univers 13:30:00 13:55:32 Visit Adum, Dolores ROMEO 350.1.13.10 it[place] [id number] [address] 2023-04-08 2023-04-08 Outpatient R [facility] [id number] Univers 08:30:00 08:30:00 ity of [facility] 2023-04-07 2023-04-07 [facility] 1.2.179.579 [id number] Univers 16:15:00 16:15:00 Dolores ROMEO 350.1.13.10 ity of [place] [id number] [address] 2023-04-07 2023-04-07 [facility] [id number] Univers 16:15:00 11:10:10 [facility] 2023-04-07 2023-04-07 Orders Doctor FLOR 1.2.840.114 [id number] Univers 00:00:00 00:00:00 Only Unassigned, [place] 350.1.13.10 ity of [place] [facility] 4.2.7.2.686 Dima as [id number] [address] 2023-04-07 2023-04-07 [facility] 1.2.840.114 10 [id number] Univers 00:00:00 00:00:00 Dolores ROMEO 350.1.13.10 i ty of [place] [id number] [address] 2023-03-24 2023-03-24 Outpatient R ADUM, [facility] [id number] Univers 14:45:00 15:40:19 DOLORES ity [facility] 2023-03-24 2023-03-24 Routine [facility] 1.2.327.417 [id number] Univers 14:45:00 15:40:19 Dolores ROMEO 350.1.13.10 ity of [place] [id number] [address] 2023-03-24 2023-03-24 Outpatient R ADUM, [facility] [id number] Univers 13:45:00 13:45:00 DOLORES ity [facility] 2023-03-22 2023-03-22 Outpatient R ADUM, [facility] [id number] Univers 08:00:00 11:49:53 DOLORES ity [facility] 2023-03-22 2023-03-22 Front Desk Team Member Lab, Ang - Db [facility] 1.2.840.1 14 [id number] Univers 08:00:00 08:15:00 Visit Adum, Dolores Bronson [facility] 350.1.13.10 ity of [place] 4.2.7.2.686 Dima as [place] [id number] [address] MEDICAL OFFICE BUILDING 2023-03-10 2023-03-10 Outpatient R AD, [facility] [id number] Univers 16:00:00 16:32:46 DOLORES itbethany [facility] 2023-03-10 2023-03-10 Routine Ad, [facility] 1.2.724.951 [id number] Univers 16:00:00 16:32:46 Dolores ROMEO 350.1.13.10 ity of [place] [id number] [facility] [address] 2023-03-10 2023-03-10 Orders Doctor FLOR 1.2.840.114 [id number] Univers 00:00:00 00:00:00 Only Unassigned, [place] 350.1.13.10 ity of [place] [facility] 4.2.7.2.686 Dima as [id number] [facility] [address] 2023-03-09 2023-03-09 Outpatient R ADUM, [facility] [id number] Univers 09:00:00 12:03:38 DOLORES ortiz [facility] 2023-03-09 2023-03-09 Front Desk Team Member Lab, Ang - Db [facility] 1.2.840.1 14 [id number] Univers 09:00:00 09:15:00 Visit Adum, Dolores Bronson HEALTH 350.1.13.10 ity of [place] 4.2.7.2.686 Dima as [place] [id number] Sc evangelina DONALDSON [address] [place] [address] MEDICAL OFFICE BUILDING 2023-02-17 2023-02-17 Outpatient R ADUM, [facility] [id number] Univers 13:00:00 13:12:01 DOLORES ity [facility] 2023-02-17 2023-02-17 Routine Adum, [facility] 1.2.979.114 [id number] Univers 13:00:00 13:12:01 Dolores ROMEO 350.1.13.10 ity of [place] [id number] [address] 2023-02-03 2023-02-03 Front Desk Team Member Ultrasound, Octavio [facility] 1.2 .840.114 [id number] Univers 15:00:00 16:00:00 Visit Greg Gallo NEWS OPERATIONS MANAGER 350.1.13.10 ity of [facility] 4.2.7.2.686 Dima as MATERNAL [id number] [facility] ical & CHILD [address] [place] [address] 2023-02-03 2023-02-03 Outpatient P ZEV, GREG [facility] [id number] Univers 15:00:00 15:00:00 ZEV, [facility] 2023-01-20 2023-01-20 Outpatient R ADUM, [facility] [id number] Univers 16:00:00 16:32:43 DOLORES ortiz [facility] 2023-01-20 2023-01-20 Routine Adum, [facility] 1.2.515.737 [id number] Univers 16:00:00 16:32:43 Dolores ROMEO 350.1.13.10 ity of [place] [id number] [address] 2022-12-24 2022-12-24 Front Desk Team Member Lab, Jens Slaughter [facility] 1.2.840.1 14 [id number] Univers 13:30:00 13:45:00 Visit AdumDolores DICK [facility].1.13.10 [facility] 4.2.7.2.686 [place] as [place]?BLEA [phone] Sc evangelina [address] MEDICAL OFFICE [facility] 2022-12-24 2022-12-24 Outpatient R ADUM, [facility] [id number] Univers 13:30:00 13:30:00 DOLORES ortiz [facility] 2022-12-23 2022-12-23 Outpatient R ADUM, [facility] [id number] Univers 10:00:00 10:35:37 DOLORES ortiz [facility] 2022-12-23 2022-12-23 Routine Adum, [facility] [id number] Univers 10:00:00 10:35:37 Dolores ROMEO 350.1.13.10 ity of Visit [facility] 4[place].2.[place] [id number] [address] 2022-12-08 2022-12-08 Telephone Adum, [facility] 1.2.840.114 [id number] Univers 00:00:00 00:00:00 Dolores Bronson AGUEDA 350.1.13.10 i ty [place] [facility] 4[place]2.7.2.686 [place] [facility] [id number] [address] 2022-11-30 2022-11-30 Front Desk Team Member Lab, Ang - Db [facility] 1.2.840.1 14 [id number] Univers 09:00:00 09:15:00 Visit AdumDolores 350.1.13.10 ity of [place] 4.2.7.2.686 Dima as [place] [phone] Sc evangelina KAN [address] [place] [address] MEDICAL OFFICE [facility] 2022-11-30 2022-11-30 Outpatient R AD, [facility] [id number] Univers 09:00:00 09:00:00 DOLORES bethany [facility] 2022-11-30 2022-11-30 Orders Doctor RAY 1.2.840.114 [id number] Univers 00:00:00 00:00:00 Only Unassigned, ALTON 350.1.13.10 ity of [facility] 4.2.7.2.686 Dima as [phone] [address] 2022-11-25 2022-11-25 Outpatient R ADUM, [facility] [id number] Univers 11:15:00 11:38:29 DOLORES itbethany [facility] 2022-11-25 2022-11-25 Routine Adum, [facility] 1.2.214.593 [id number] Univers 11:15:00 11:38:29 Dolores ROMEO 350.1.13.10 it[place] [phone] [address] 2022-11-19 2022-11-19 Front Desk Team Member Lab, Ang - Db [facility] 1.2.840.1 14 [id number] Univers 09:00:00 10:06:27 Visit Adum, Dolores JENNINGS 350.1.13.10 ity of [place] 4.2.7.2.686 Dima as [place] [phone] [address] MEDICAL OFFICE BUILDING 2022-11-19 2022-11-19 Outpatient R ADUM, [facility] [id number] Univers 09:00:00 09:00:00 DOLORES itbethany [facility] 2022-10-27 2022-10-27 [facility] [id number] Univers 14:00:00 15:35:40 DOLORES ortiz [facility] 2022-10-27 2022-10-27 Initial Adum, [facility] 1.2.741.047 [id number] Univers 14:00:00 15:35:40 Dolores ROMEO 350.1.13.10 it[place] [id number] [address] 2022-10-27 2022-10-27 Orders Doctor FLOR 1.2.840.114 [id number] Univers 00:00:00 00:00:00 Only Unassigned, ALTON 350.1.13.10 ity of [facility] 4.2.7.2.686 Dima as [phone] [place] [address] [address] 2021-01-14 2021-01-14 Outpatient R KEIRY, [facility] [id number] Univers 14:30:00 14:30:00 ENE bethany [facility] 2020-12-30 2020-12-30 Outpatient R KEIRY, [facility] [id number] Univers 09:00:00 09:00:00 ENE [facility] 2020-12-07 2020-12-07 Outpatient OLIVE, [facility] [id number] Univers 13:15:00 13:15:00 KAYLEEN [facility] 2020-11-25 2020-11-25 Kindra Wild [facility] 1.2.906.768 [id number] Univers 00:00:00 00:00:00 Cam Surjit 350.1.13.10 i ty of [place] [phone] Sc dic[address] 2020-11-16 2020-11-16 Outpatient [facility] [id number] Univers 13:20:00 13:20:00 [facility] 2020-07-02 2020-07-02 [facility] 1.2.451.597 [id number] 11:06:01 11:21:01 Ene Eddy 350.1.13.10 Visit [place] 4.2.7.2.686 Professio [phone] [address] 2020-07-02 2020-07-02 [facility] 1.2.990.006 [id number] Univers 11:06:01 11:21:01 Ene Eddy 350.1.13.10 ity of Visit [place] [phone] Sc dic[address] 2020-07-02 2020-07-02 [facility] [id number] Univers 11:00:00 11:00:00 ENE [facility] 2020-07-02 2020-07-02 Orders Doctor RAY 1.2.840.114 [id number] 00:00:00 00:00:00 Only Unassigned, AL[place] 350.1.13.10 [place] [facility] [phone] 2020-07-02 2020-07-02 Orders Doctor FLOR 1.2.840.114 [id number] Univers 00:00:00 00:00:00 Only Unassigned, ALTON 350.1.13.10 ity of [facility] 4.2.7.2.686 Dima as [phone] [address] 2020-06-14 2020-06-14 Telephone Kindra Griggs [facility] 1.2.840.114 [id number] Univers 00:00:00 00:00:00 Jorge L Eddy 350.1.13.10 i ty of [place] [phone] Sc dic[address] 2020-06-14 2020-06-14 Orders Doctor FLOR 1.2.840.114 [id number] Univers 00:00:00 00:00:00 Only Unassigned, ALTON 350.1.13.10 ity of [facility] 4.2.7.2.686 Dima as [phone] [address] 2020-06-14 2020-06-14 Telephone Kindra Griggs [facility] 1.2.840.114 [id number] 00:00:00 00:00:00 Jorge L Eddy 350.1.13.10 [place] 4.2.7.2.686 Professio [phone] [address] 2020-06-14 2020-06-14 Orders Doctor FLOR 1.2.840.114 [id number] 00:00:00 00:00:00 Only Unassigned, ALTON 350.1.13.10 [facility] 4.2.7.2.686 [id number] [facility] 2020-06-11 2020-06-11 Nurse Nurse, [facility] 1.2.840.114 [id number] [facility] 14:14:54 14:37:51 Visit Kindra Griggs Jorge L Eddy 350.1.13.10 ity of [place] [phone] Sc dic[address] 2020-06-11 2020-06-11 Nurse Nurse, [facility] 1.2.840.114 [id number] 14:14:54 14:37:51 Visit Women's [place] 350.1.13.10 Health [place] 4.2.7.2.686 Professio [phone] [address] 2020-06-11 2020-06-11 Outpatient R [facility] [id number] Univers 14:00:00 14:00:00 ity of [facility] 2020-06-03 2020-06-04 [facility] 1.2.840.114 [id number] Univers 05:33:00 18:30:00 Encounter Cam [place] 350.1.13.10 ity of [place] [phone] [facility] [address] [place] 2020-06-03 2020-06-04 [facility] Kindra Griggs [facility] 1.2.840.114 [id number] 05:33:00 18:30:00 Encounter Cam [place] 350.1.13.10 [place] 4.2.7.2.686 [place] [phone] [facility] 2020-06-03 2020-06-03 Outpatient P KINDRA GRIGGS [facility] CARLOS [id number] Univers 05:33:00 05:33:00 ity of [facility] 2020-06-03 2020-06-03 Orders Doctor RAY 1.2.840.114 [id number] Univers 00:00:00 00:00:00 Only Unassigned, ALTON 350.1.13.10 ity of [place] [facility] 4.2.7.2.686 Dima as [phone] [facility] [address] [place] 2020-06-03 2020-06-03 Orders Doctor RAY 1.2.840.114 [id number] 00:00:00 00:00:00 Only Unassigned, ALTON 350.1.13.10 [facility] [id number] 009 2020-05-31 2020-05-31 Laboratory Only, Adc Test [facility] 1.2.840. 114 [id number] Univers 10:58:53 11:13:53 Only Kindra Griggs [place] 350.1.13.10 ity of [place] [id number] [address] 2020-05-31 2020-05-31 Outpatient R [facility] [id number] Univers 10:15:00 10:15:00 ity of [facility] 2020-05-29 2020-05-29 Telephone Kindra Griggs [facility] 1.2.840.114 [id number] Univers 00:00:00 00:00:00 Cam [place] 350.1.13.10 i ty of [place] [phone] Sc dical nal [address] [place] [address] 2020-05-28 2020-05-28 Routine Kindra Griggs [facility] 1.2.713.890 [id number] Univers 16:00:11 16:49:53 Cam [place] 350.1.13.10 ity of Visit [place].2.[place] [phone] Sc dical nal [address] [place] [address] 2020-05-28 2020-05-28 Routine Kindra Griggs [facility] 1.2.708.331 [id number] 16:00:11 16:49:53 Cam [place] 350.1.13.10 Visit [place] 4.2.7.2.686 Professio [phone] [address] 2020-05-28 2020-05-28 Front Desk Team Member 2, Adc Lab [facility] 1.2.840.114 [id number] Univers 15:53:23 16:08:23 Visit Kindra Griggs Cam [place] 350.1.13.10 ity of [place] [phone] Sc dical nal [address] [place] [address] 2020-05-28 2020-05-28 Outpatient R KINDRA GRIGGS [facility] [id number] Univers 16:00:00 16:00:00 ity of [facility] 2020-05-23 2020-05-23 Prep For Kindra Griggs [facility] 1.2.840.114 [id number] Univers 00:00:00 00:00:00 Surgery Cam [place] 350.1.13.10 i ty of [place] [phone] Sc dical [address] 2020-05-22 2020-05-22 Routine Kindra Griggs [facility] 1.2.149.843 [id number] Univers 16:09:56 17:21:44 Cam [place] 350.1.13.10 ity of [place] [phone] Sc dical nal [address] [facility] 2020-05-22 2020-05-22 Outpatient R KINDRA GRIGGS [facility] [id number] Univers 16:15:00 16:15:00 ity of [facility] 2020-05-20 2020-05-20 Outpatient R KEIRY [facility] [id number] Univers 11:15:00 11:15:00 ENE itbethany [facility] 2020-05-20 2020-05-20 Front Desk Team Member 2, Adc Lab [facility] 1.2.840.114 [id number] Univers 10:31:01 10:46:01 Visit Ene Ricci 350.1.13.10 ity of [place] [phone] Sc dical nal [address] [facility] 2020-05-06 2020-05-20 Routine Kindra Griggs [facility] 1.2.299.252 [id number] Univers 15:51:49 10:35:13 Cam [place] 350.1.13.10 ity of [place] [phone] Sc dical nal 134 [facility] 2020-05-06 2020-05-06 Outpatient R ANSON KINDRA [facility] [id number] Univers 16:00:00 16:00:00 ity of [facility] 2020-05-02 2020-05-02 Outpatient R ANSON KINDRA [facility] [id number] Univers 09:00:00 09:00:00 ity of [facility] 2020-04-19 2020-04-19 Outpatient R KINDRA GRIGGS [facility] [id number] Univers 16:00:00 16:00:00 ity [facility] 2020-04-18 2020-04-18 Routine Keiry [facility] 1.2.880.257 [id number] Univers 11:00:18 11:15:18 Ene [place] 350.1.13.10 ity of [place] [phone] [address] 2020-04-18 2020-04-18 Outpatient R KEIRY [facility] [id number] Univers 10:45:00 10:45:00 ENE ity [facility] 2020-04-18 2020-04-18 Letter Anson [facility] 1.2.587.708 [id number] Univers 00:00:00 00:00:00 (Out) Cam [place] 350.1.13.10 i ty of [place] [phone] [address] 2020-04-18 2020-04-18 Marycarmen Griggs [facility] 1.2.133.633 [id number] Univers 00:00:00 00:00:00 (Out) Cam [place] 350.1.13.10 i ty of [place] [phone] [address] 2020-04-05 2020-04-05 Outpatient R ANSON [facility] [id number] Univers 16:00:00 16:00:00 ity [facility] 2020-04-05 2020-04-05 Routine Anson [facility] 1.2.903.093 [id number] Univers 14:13:39 14:45:49 Cam [place] 350.1.13.10 ity of [place] [phone] [address] 2020-04-05 2020-04-05 Outpatient R ANSON [facility] [id number] Univers 14:15:00 14:15:00 ity [facility] 2020-03-29 2020-03-29 Outpatient R ANSON [facility] [id number] Univers 08:15:00 08:15:00 ity [facility] 2020-03-26 2020-03-26 Outpatient R ANSON [facility] [id number] Univers 13:00:00 13:00:00 ity of [facility] 2020-03-26 2020-03-26 Telemedici Krista Griggsen [facility] 1.2.840.114 [id number] Univers 09:24:04 09:39:04 ne Visit Jorge L Eddy 350.1.13.10 ity of [place] [phone] Sc dical nal [address] [facility] 2020-03-15 2020-03-15 Front Desk Team Member Ultrasound, Adc [facility] 1.2 .840.114 [id number] Univers 15:37:33 16:07:33 Visit Ene Ricci 350.1.13.10 ity of [place] [phone] Sc dical nal [address] [place] [address] 2020-03-15 2020-03-15 Front Desk Team Member 2, Adc Lab [facility] 1.2.840.114 [id number] Univers 10:34:25 10:49:25 Visit Kindra Griggs 350.1.13.10 ity of [place] [phone] [facility] [address] [facility] 2020-03-15 2020-03-15 Routine Keiry [facility] 1.2.703.283 [id number] Univers 08:54:47 09:40:37 Ene Eddy 350.1.13.10 ity of [place] [phone] [facility] [address] [facility] 2020-03-15 2020-03-15 Outpatient R KEIRY [facility] [id number] Univers 08:45:00 08:45:00 ENE itbethany of [facility] 2020-02-14 2020-02-14 Outpatient R KINDRA GRIGGS [facility] [id number] Univers 11:30:00 11:30:00 ity of [facility] 2020-02-14 2020-02-14 Telemedici Kindra Griggs [facility] 1.2.840.114 [id number] Univers 08:14:55 08:29:55 ne Visit Jorge L Eddy 350.1.13.10 ity of [place] [phone] Sc dical nal 134 [facility] 2020-02-05 2020-02-05 Outpatient R KINDRA GRIGGS [facility] [id number] Univers 09:45:00 09:45:00 ity of [facility] 2020-02-04 2020-02-04 Laboratory Lab, [facility] Fam Pob I [facility] 1.2. 840.114 [id number] Univers 09:09:34 09:29:34 Only Estephania Daniel 350.1.13.10 ity of [place] 4.2.7.2.686 [place] Professio [phone] Sc dical nal 044 [facility] 2020-02-04 2020-02-04 Outpatient R [facility] [id number] Univers 09:00:00 09:00:00 ity of [facility] 2020-02-01 2020-02-01 Telephone Krista Griggsen [facility] 1.2.840.114 [id number] Univers 00:00:00 00:00:00 Cam [place] 350.1.13.10 i ty of [place] [phone] Sc dical nal 134 [facility] 2020-01-25 2020-01-25 Front Desk Team Member 2, Adc Lab [facility] 1.2.840.114 [id number] Univers 13:28:32 13:43:32 Visit Kindra Griggs 350.1.13.10 ity of [place] [phone] Sc dical nal [address] [facility] 2020-01-25 2020-01-25 Outpatient R ANSON KINDRA [facility] [id number] Univers 13:30:00 13:30:00 ity of [facility] 2020-01-25 2020-01-25 Orders Doctor RAY 1.2.840.114 [id number] Univers 00:00:00 00:00:00 Only Unassigned, ALTON 350.1.13.10 ity of [place] [facility] 4.2.7.2.686 Dima as [phone] [address] 2020-01-23 2020-01-23 Front Desk Team Member Ultrasound, [facility] 1.2 .840.114 [id number] Univers 13:49:51 15:04:51 Visit Jatinder Yeh NEWS OPERATIONS MANAGER 350.1.13.10 ity of [facility] 4.2.7.2.686 Dima as MATERNAL [phone] [facility] ical & CHILD [address] [place] [address] 2020-01-23 2020-01-23 Outpatient P [facility] [id number] Univers 14:00:00 14:00:00 ity [facility] 2020-01-05 2020-01-05 Telemedici Keiry [facility] 1..840.114 7 [id number] Univers 07:55:00 09:38:04 ne Visit Ene [place] 350.1.13.10 ity of [place] [phone] [address] 2020-01-05 2020-01-05 Outpatient R KEIRY [facility] [id number] Univers 09:15:00 09:15:00 ENE ity [facility] 2020-01-05 2020-01-05 Case Keiry [facility] 1..603.620 [id number] Univers 00:00:00 00:00:00 Management Ene Eddy 350.1.13.10 ity of [place] [phone] [address] 2020-01-02 2020-01-02 Outpatient R KEIRY [facility] [id number] Univers 11:15:00 11:15:00 ENE itbethany [facility] 2019-12-14 2019-12-14 Telephone Kindra Griggs [facility] 1..840.114 75 [id number] Univers 00:00:00 00:00:00 Jorge L Eddy 350.1.13.10 i ty of [place] [phone] Sc dic[address] 2019-12-14 2019-12-14 Telephone Kindra Griggs [facility] 1.2.840.114 [id number] Univers 00:00:00 00:00:00 Cam [place] 350.1.13.10 i ty of [place] [phone] Sc dical nal [address] [place] [address] 2019-12-11 2019-12-11 Outpatient R [facility] [id number] Univers 10:00:00 10:00:00 [facility] 2019-12-11 2019-12-11 Telephone Kindra Griggs [facility] 1.2.840.114 [id number] Univers 00:00:00 00:00:00 Cam [place] 350.1.13.10 i ty of [place] [phone] Sc dical nal [address] [place] [address] 2019-12-07 2019-12-07 Telephone Kindra Griggs [facility] 1.2.840.114 [id number] Univers 00:00:00 00:00:00 Cam [place] 350.1.13.10 i ty of [place] [phone] Sc dical nal [address] [place] [address] 2019-12-04 2019-12-04 Outpatient R KINDRA GRIGGS [facility] [id number] Univers 09:30:00 09:30:00 [facility] Results Test Description Test Time Test Comments Results Result Comments Source GLUCOSE FASTING 2023-05-26 12:26:30 Test Item Value Reference Range Interpretation Comme nts GLU FASTNG (test code = 1946484771) 93 mg/dL 70-110 Lab Interpretation (test code = 92634-4) [id number] 12:26:30 Test Item Value Reference Range Interpretation Comments GLU FASTNG (test code = 8366256164) 93 mg/dL 70-110 Lab Interpretation (test code = Normal 65059-4) [facility] GLUCOSE (AUTOMATED)2023-05-25 11:27:27 Test Item Value Reference Range Interpretation Comments POCT GLU (test code = 9871664199) 87 mg/dL 70-110 Lab Interpretation (test code = Normal 79876-7) [facility] GLUCOSE (AUTOMATED)2023-05-25 11:27:27 Test Item Value Reference Range Interpretation Comments POCT GLU (test code = 5398043497) 87 mg/dL 70-110 Lab Interpretation (test code = Normal 41969-2) [facility] URINALYSIS W/O SPECIFIC [id number] 14:06:00 Test Item Value Reference Range Interpretation Comments POCT PH U (test code = 3254) N/A 5-8 POCT U LEUK EST (test code = N/A Negative - Negative 3263) POCT U NIT (test code = 3262) N/A Negative - Negative POCT U PROT (test code = 3259) NEGATIVE Negative - Negative POCT U GLU (test code = 3256) NEGATIVE Negative - Negative POCT U KETONE (test code = 3258) N/A Negative - Negative POCT U BLD (test code = 3257) N/A Negative - Negative [facility] URINALYSIS W/O SPECIFIC [id number] 14:14:00 Test Item Value Reference Range Interpretation Comments POCT PH U (test code = 3254) n/a 5-8 POCT U LEUK EST (test code = n/a Negative - Negative 3263) POCT U NIT (test code = 3262) n/a Negative - Negative POCT U PROT (test code = 3259) negative Negative - Negative POCT U GLU (test code = 3256) negative Negative - Negative POCT U KETONE (test code = 3258) n/a Negative - Negative POCT U BLD (test code = 3257) n/a Negative - Negative [facility] URINALYSIS W/O SPECIFIC [id number] 14:59:00 Test Item Value Reference Range Interpretation Comments POCT PH U (test code = 3254) n/a 5-8 POCT U LEUK EST (test code = n/a Negative - Negative 3263) POCT U NIT (test code = 3262) n/a Negative - Negative POCT U PROT (test code = 3259) negative Negative - Negative POCT U GLU (test code = 3256) negative Negative - Negative POCT U KETONE (test code = 3258) n/a Negative - Negative POCT U BLD (test code = 3257) n/a Negative - Negative [facility] URINALYSIS W/O SPECIFIC [id number] 14:59:00 Test Item Value Reference Range Interpretation Comments POCT PH U (test code = 3254) n/a 5-8 POCT U LEUK EST (test code = n/a Negative - Negative 3263) POCT U NIT (test code = 3262) n/a Negative - Negative POCT U PROT (test code = 3259) negative Negative - Negative POCT U GLU (test code = 3256) negative Negative - Negative POCT U KETONE (test code = 3258) n/a Negative - Negative POCT U BLD (test code = 3257) n/a Negative - Negative [facility] URINALYSIS W/O SPECIFIC [id number] 14:59:00 Test Item Value Reference Range Interpretation Comments POCT PH U (test code = 3254) n/a 5-8 POCT U LEUK EST (test code = n/a Negative - Negative 3263) POCT U NIT (test code = 3262) n/a Negative - Negative POCT U PROT (test code = 3259) negative Negative - Negative POCT U GLU (test code = 3256) negative Negative - Negative POCT U KETONE (test code = 3258) n/a Negative - Negative POCT U BLD (test code = 3257) n/a Negative - Negative [facility] URINALYSIS W/O SPECIFIC [id number] 16:12:00 Test Item Value Reference Range Interpretation Comments [...] code = 3257) N/A Negative - Negative [facility] [id number] 15:04:00 Test Item Value Reference Range Interpretation Comments POCT PH U (test code = 3254) n/a 5-8 POCT U LEUK EST (test code = n/a Negative - Negative 3263) POCT U NIT (test code = 3262) n/a Negative - Negative POCT U PROT (test code = 3259) negaitve Negative - Negative POCT U GLU (test code = 3256) negative Negative - Negative POCT U KETONE (test code = 3258) n/a Negative - Negative POCT U BLD (test code = 3257) n/a Negative - Negative [facility] URINALYSIS W/O SPECIFIC [id number] 15:30:00 Test Item Value Reference Range Interpretation Comments POCT PH U (test code = 3254) n/a 5-8 POCT U LEUK EST (test code = n/a Negative - Negative 3263) POCT U NIT (test code = 3262) n/a Negative - Negative POCT U PROT (test code = 3259) negative Negative - Negative POCT U GLU (test code = 3256) negative Negative - Negative POCT U KETONE (test code = 3258) n/a Negative - Negative POCT U BLD (test code = 3257) n/a Negative - Negative [facility] URINALYSIS W/O SPECIFIC [id number] 20:00:00 Test Item Value Reference Range Interpretation Comments POCT PH U (test code = 3254) n/a 5-8 POCT U LEUK EST (test code = n/a Negative - Negative 3263) POCT U NIT (test code = 3262) n/a Negative - Negative POCT U PROT (test code = 3259) Negative Negative - Negative POCT U GLU (test code = 3256) Normal Negative - Negative POCT U KETONE (test code = 3258) n/a Negative - Negative POCT U BLD (test code = 3257) n/a Negative - Negative [facility] SPECIFIC [id number] 20:00:00 Test Item Value Reference Range Interpretation Comments POCT PH U (test code = 3254) n/a 5-8 POCT U LEUK EST (test code = n/a Negative - Negative 3263) POCT U NIT (test code = 3262) n/a Negative - Negative POCT U PROT (test code = 3259) Negative Negative - Negative POCT U GLU (test code = 3256) Normal Negative - Negative POCT U KETONE (test code = 3258) n/a Negative - Negative POCT U BLD (test code = 3257) n/a Negative - Negative [facility] URINALYSIS W/O SPECIFIC [id number] 20:00:00 Test Item Value Reference Range Interpretation Comments POCT PH U (test code = 3254) n/a 5-8 POCT U LEUK EST (test code = n/a Negative - Negative 3263) POCT U NIT (test code = 3262) n/a Negative - Negative POCT U PROT (test code = 3259) Negative Negative - Negative POCT U GLU (test code = 3256) Normal Negative - Negative POCT U KETONE (test code = 3258) n/a Negative - Negative POCT U BLD (test code = 3257) n/a Negative - Negative [facility] URINALYSIS W/O SPECIFIC [id number] 20:00:00 Test Item Value Reference Range Interpretation Comments POCT PH U (test code = 3254) n/a 5-8 POCT U LEUK EST (test code = n/a Negative - Negative 3263) POCT U NIT (test code = 3262) n/a Negative - Negative POCT U PROT (test code = 3259) Negative Negative - Negative POCT U GLU (test code = 3256) Normal Negative - Negative POCT U KETONE (test code = 3258) n/a Negative - Negative POCT U BLD (test code = 3257) n/a Negative - Negative [facility] URINALYSIS W/O SPECIFIC [id number] 21:00:00 Test Item Value Reference Range Interpretation Comments POCT PH U (test code = 3254) n/a 5-8 POCT U LEUK EST (test code = n/a Negative - Negative 3263) POCT U NIT (test code = 3262) n/a Negative - Negative POCT U PROT (test code = 3259) negative Negative - Negative POCT U GLU (test code = 3256) negative Negative - Negative POCT U KETONE (test code = 3258) n/a Negative - Negative POCT U BLD (test code = 3257) n/a Negative - Negative [facility] URINALYSIS W/O SPECIFIC [id number] 21:00:00 Test Item Value Reference Range Interpretation Comments POCT PH U (test code = 3254) n/a 5-8 POCT U LEUK EST (test code = n/a Negative - Negative 3263) POCT U NIT (test code = 3262) n/a Negative - Negative POCT U PROT (test code = 3259) negative Negative - Negative POCT U GLU (test code = 3256) negative Negative - Negative POCT U KETONE (test code = 3258) n/a Negative - Negative POCT U BLD (test code = 3257) n/a Negative - Negative [facility] URINALYSIS W/O SPECIFIC [id number] 18:14:00 Test Item Value Reference Range Interpretation Comments POCT PH U (test code = 3254) n/a 5-8 POCT U LEUK EST (test code = n/a Negative - Negative 3263) POCT U NIT (test code = 3262) negative Negative - Negative POCT U PROT (test code = 3259) negative Negative - Negative POCT U GLU (test code = 3256) n/a Negative - Negative POCT U KETONE (test code = 3258) n/a Negative - Negative POCT U BLD (test code = 3257) n/a Negative - Negative [facility] URINALYSIS W/O SPECIFIC [id number] 21:07:00 Test Item Value Reference Range Interpretation Comments POCT PH U (test code = 3254) n/a 5-8 POCT U LEUK EST (test code = n/a Negative - Negative 3263) POCT U NIT (test code = 3262) n/a Negative - Negative POCT U PROT (test code = 3259) negative Negative - Negative POCT U GLU (test code = 3256) negative Negative - Negative POCT U KETONE (test code = 3258) n/a Negative - Negative POCT U BLD (test code = 3257) n/a Negative - Negative [facility] [id number] 15:09:00 Test Item Value Reference Range Interpretation Comments POCT PH U (test code = 3254) N/A 5-8 POCT U LEUK EST (test code = N/A Negative - Negative 3263) POCT U NIT (test code = 3262) N/A Negative - Negative POCT U PROT (test code = 3259) Trace Negative - Negative POCT U GLU (test code = 3256) Negative Negative - Negative POCT U KETONE (test code = 3258) N/A Negative - Negative POCT U BLD (test code = 3257) N/A Negative - Negative [facility] URINALYSIS W/O SPECIFIC [id number] 16:22:00 Test Item Value Reference Range Interpretation Comments [...] code = 3257) N/A Negative - Negative [facility] URINALYSIS W/O SPECIFIC [id number] 16:22:00 Test Item Value Reference Range Interpretation Comments [...] code = 3257) N/A Negative - Negative [facility]IFIC [id number] 19:16:00 Test Item Value Reference Range Interpretation Comments [...] code = 3257) N/A Negative - Negative [facility] [id number] 19:16:00 Test Item Value Reference Range Interpretation Comments POCT PREG (test code = 1605) Positive On board controls acceptable with C Yes Line (test code = 3574) POCT PREG LOT # (test code = 3575) POCT PREG TEST DATE (test code = 3576) [facility] [id number] 17:20:00 Test Item Value Reference Range Interpretation Comments POCT PREG (test code = 1605) Negative On board controls acceptable with C Yes Line (test code = 3574) POCT PREG LOT # (test code = 3575) POCT PREG TEST DATE (test code = 3576) Lab Interpretation (test code = Normal 89027-1) [facility] with [id number] 10:06:00 Test Item Value Reference Range Interpretation Comments WBC (test code = See_Comment [Automated 0390-2) message] The sy stem which generated this result transmitted reference range : 4.30 - 11.10 10*3/?L. The reference range was not used to interpret this result as normal/abnormal . RBC (test code = See_Comment L [Automated 9-8) message] The sy stem which generated this [...] RDW-SD (test code = 40.2 fL 39-49.9 96140-1) RDW-CV (test code = 12.6 % 12-15.5 788-0) PLT (test code = See_Comment [Automated 777-3) message] The sy stem which generated this result transmitted reference range : 166 - 358 10*3/ ?L. The reference r arlin was not used to interpret this result as normal/abnormal . MPV (test code = 10.4 fL 9.5-12.9 47438-3) NRBC/100 WBC (test See_Comment [Automat ed code = 0206214859) message] The system which generated this result transmitted reference range : 0.0 - 10.0 /100 WBCs. The refer ence range was not u sed to interpret th is result as normal/abnormal . NRBC x10^3 (test code <0.01 See_Comment [Auto mated = 8212722037) message] The s ystem which generated this result transmitted reference range : 10*3/?L. The reference range was not used to interpret this result as normal/abnormal . GRAN MAT (NEUT) % 67.7 % (test code = 770-8) IMM GRAN % (test code 0.20 % = 3794179460) LYMPH % (test code = 26.2 % 736-9) MONO % (test code = 4.6 % 5905-5) EOS % (test code = 1.1 % 713-8) BASO % (test code = 0.2 % 706-2) GRAN MAT x10^3(ANC) 5.41 10*3/uL 1.88-7.09 (test code = 7227264652) IMM GRAN x10^3 (test <0.03 0-0.06 code = 2119793131) LYMPH x10^3 (test code 2.10 10*3/uL 1.32-3.29 = 731-0) MONO x10^3 (test code 0.37 10*3/uL 0.33-0.92 = 742-7) EOS x10^3 (test code = 0.09 10*3/uL 0.03-0.39 711-2) BASO x10^3 (test code <0.03 0.01-0.07 = 704-7) Lab Interpretation Abnormal (test code = 54170-5) [facility] OR RUPINDER ONLY - [id number] 06:12:00 Test Item Value Reference Range Interpretation Comments RPR (Qualitative) (test code = Nonreactive Nonreactive 98844-0) Lab Interpretation (test code = Normal 96847-5) [facility] IMMUNE [id number] 17:33:53 Test Item Value Reference Range Interpretation Comments RHIG CANDIDATE? No- see comment Patient i s not a (test code = candidate for R hIg- 5055) Patient is Rh Positive.Perfor med at [facility] Laboratory Services - ADC Blood [address] [place] [id number] Free: [phone] A No. [id number] [facility] CenterHEPATITIS B SURFACE [id number] 15:45:00 Test Item Value Reference Range Interpretation Comments HBsAg Semi-Quantitative (test code = Negative Negative 5195-3) [facility]HIV [facility]2 AG-AB WITH [id number] 14:03:00 Test Item Value Reference Range Interpretation Comments HIV Negative Negative Semi-quantitative (test code = 00648-6) JUAN FRANCISCO (test code = Non-reactive for HIV-1 JUAN FRANCISCO) antigen and HIV-1/HIV-2 antibodies. ?No laboratory evidence of HIV infection. ?Repeat in 2-4 weeks if acute HIV infection is suspected. [facility] CenterVenous Cord [id number] 13:53:00 Test Item Value Reference Range Interpretation Comments VENOUS BASE EXCESS, mEq/L CORD (test code = 8895367919) VENOUS PH, CORD (test 7.25-7.45 code = 7335568870) VENOUS PC02, CORD See_Comment [Automate d message] The (test code = system which ge nerated 5270314302) this result tra nsmitted reference range : 27 - 49 mmHg. The refer ence range was not used to interpret this result as normal/abnormal . VENOUS PO2, CORD (test See_Comment [Aut omated message] The code = 4657228457) system wh [facility] generated this result tra nsmitted reference range : 17 - 41 mmHg. The refer ence range was not used to interpret this result as normal/abnormal . VENOUS BICARBONATE, See_Comment [Automa slime message] The CORD (test code = system whi ch generated 5212959646) this result tra nsmitted reference range : 12 - 29 mEq/L. The refe rence range was not used to interpret this result as normal/abnormal . [facility] CenterArterial Cord [id number] 13:50:00 Test Item Value Reference Range Interpretation Comments BASE EXCESS, CORD mEq/L (test code = 1861345853) AC PH, CORD (BEAKER) 7.18-7.38 (test code = 3993701394) PC02, CORD (test code See_Comment [Auto mated message] The = 1247617089) system which g enerated this result transmit slime reference range : 32 - 66 mmHg. The refer ence range was not used to interpret this result as normal/abnormal . PO2, CORD (test code See_Comment [Autom ated message] The = 3940681792) system which g enerated this result transmit slime reference range : 10 - 30 mmHg. The refer ence range was not used to interpret this result as normal/abnormal . BICARBONATE, CORD See_Comment [Automate d message] The (test code = system which ge nerated this 7846145850) result transmit slime reference range : 17 - 27 mEq/L. The refe rence range was not used to interpret this result as normal/abnormal . [facility] CenterType and Screen - ONCE [id number] 13:13:48 Test Item Value Reference Range Interpretation Comments ABO & RH (test code A Positive Performe d at [facility] = 20) Laboratory [facility] Blood Bank[address] [place] [address] Free: [phone] A No. [id number] IAT (test code = Negative Performed a t [facility] 1185) Laboratory Serv [facility] Blood Bank[address] [place], [place] [address]Toll Free: [phone] A No. [id number] [facility] CenterCBC WITH [id number] 12:08:00 Test Item Value Reference Range Interpretation [...] RDW-SD (test code = 39.5 fL 39-49.9 26015-5) RDW-CV (test code = 12.6 % 12-15.5 788-0) PLT (test code = See_Comment [Automated 777-3) message] The sy stem which generated this result transmitted reference range : 166 - 358 10*3/ ?L. The reference r arlin was not used to interpret this result as normal/abnormal . MPV (test code = 10.2 fL 9.5-12.9 73467-3) NRBC/100 WBC (test See_Comment [Automat ed code = 7213686092) message] The system which generated this result transmitted reference range : 0.0 - 10.0 /100 WBCs. The refer ence range was not u sed to interpret th is result as normal/abnormal . NRBC x10^3 (test code <0.01 See_Comment [Auto mated = 2074543662) message] The s ystem which generated this result transmitted reference range : 10*3/?L. The reference range was not used to interpret this result as normal/abnormal . GRAN MAT (NEUT) % 61.3 % (test code = 770-8) IMM GRAN % (test code 0.30 % = 1920909598) LYMPH % (test code = 31.8 % 736-9) MONO % (test code = 3.6 % 5905-5) EOS % (test code = 2.4 % 713-8) BASO % (test code = 0.6 % 706-2) GRAN MAT x10^3(ANC) 4.04 10*3/uL 1.88-7.09 (test code = 5951690616) IMM GRAN x10^3 (test <0.03 0-0.06 code = 8292271300) LYMPH x10^3 (test code 2.10 10*3/uL 1.32-3.29 = 731-0) MONO x10^3 (test code 0.24 10*3/uL 0.33-0.92 L = 742-7) EOS x10^3 (test code = 0.16 10*3/uL 0.03-0.39 711-2) BASO x10^3 (test code 0.04 10*3/uL 0.01-0.07 = 704-7) Lab Interpretation Abnormal (test code = 99622-7) [facility] URINALYSIS W/O SPECIFIC [id number] 21:31:00 Test Item Value Reference Range Interpretation [...] code = 3257) N/A Negative - Negative [facility] URINALYSIS W/O SPECIFIC [id number] 21:31:00 Test Item Value Reference Range Interpretation [...] code = 3257) N/A Negative - Negative [facility]PO[facility] URIN[facility] W/O SPECIFIC [id number] 21:31:00 Test Item Value Reference Range Interpretation [...] code = 3257) N/A Negative - Negative [facility]>14 WEEKS US [id number] 22:27:09Limited USG for presentation: ?Cephalic Kindra Griggs MD ?05/22/2020 ?5:27 [facility]>14 WEEKS [facility] LIMITED 2020-05-22 22:27:09Limited USG for presentation: ?Cephalic Kindra Griggs MD ?05/22/2020 ?5:27 PMD[facility] CenterPOWV URINALYSIS W/O SPECIFIC [id number] 21:32:00 Test Item Value Reference Range Interpretation [...] code = 3257) n/a Negative - Negative [facility] CenterPOCT URINALYSIS W/O SPECIFIC [id number] 21:32:00 Test Item Value Reference Range Interpretation [...] code = 3257) n/a Negative - Negative [facility] CenterPO[facility] URINALYSIS W/O SPECIFIC [id number] 16:10:00 Test Item Value Reference Range Interpretation [...] code = 3257) n/a Negative - Negative [facility] CenterPOWV URINALYSIS W/O SPECIFIC [id number] 19:32:00 Test Item Value Reference Range Interpretation [...] Negative Lab Interpretation (test code = Normal 14851-4) [facility] CenterGlucose 1 Hour Post [id number] 18:01:00 Test Item Value Reference Range Interpretation Comments GLUC 1 HR (test code = 5862964510) 109 mg/dL 120-170 L Lab Interpretation (test code = Abnormal 57343-1) [facility] CenterCB with [id number] 17:48:00 Test Item Value Reference Range Interpretation [...] RDW-SD (test code = 41.6 fL 39-49.9 06627-2) RDW-CV (test code = 12.3 % 12-15.5 788-0) PLT (test code = See_Comment [Automated 777-3) message] The sy stem which generated this result transmitted reference range : 166 - 358 10*3/ ?L. The reference r arlin was not used to interpret this result as normal/abnormal . MPV (test code = 9.6 fL 9.5-12.9 64998-0) NRBC/100 WBC (test See_Comment [Automat ed code = 3982695885) message] The system which generated this result transmitted reference range : 0.0 - 10.0 /100 WBCs. The refer ence range was not u sed to interpret th is result as normal/abnormal . NRBC x10^3 (test code <0.01 See_Comment [Auto mated = 9587219419) message] The s ystem which generated this result transmitted reference range : 10*3/?L. The reference range was not used to interpret this result as normal/abnormal . GRAN MAT (NEUT) % 74.3 % (test code = 770-8) IMM GRAN % (test code 0.40 % = 4674459383) LYMPH % (test code = 19.4 % 736-9) MONO % (test code = 3.7 % 5905-5) EOS % (test code = 1.8 % 713-8) BASO % (test code = 0.4 % 706-2) GRAN MAT x10^3(ANC) 5.87 10*3/uL 1.88-7.09 (test code = 5282088141) IMM GRAN x10^3 (test 0.03 10*3/uL 0-0.06 code = 9358363627) LYMPH x10^3 (test code 1.53 10*3/uL 1.32-3.29 = 731-0) MONO x10^3 (test code 0.29 10*3/uL 0.33-0.92 L = 742-7) EOS x10^3 (test code = 0.14 10*3/uL 0.03-0.39 711-2) BASO x10^3 (test code 0.03 10*3/uL 0.01-0.07 = 704-7) Lab Interpretation Abnormal (test code = 81816-2) [facility] CenterPO[facility] URINAL[facility]IS W/O SPECIFIC [id number] 14:15:00 Test Item Value Reference Range Interpretation [...] code = 3257) n/a Negative - Negative [facility]
[2023-06-08] MEDS ORDERED: NA CHLORIDE 0.9% 1,000 ML ONE (07:29)
[2023-06-08] MEDS ORDERED: MECLIZINE HCL 12.5 MG TAB ONE (07:29)
[2023-06-08] MEDS ORDERED: ONDANSETRON 4 MG/2 ML VIAL ONE (07:29)
[2023-06-08 07:35] LABS: Absolute Lymphocytes (CBC) 1.1 K/uL (0.7-4.9); Hematocrit 35.3 % (36.0-45.0); Lymphocytes % 18.5 % (15.3-44.8); MCV 88.7 fL (80-100); MPV 6.3 fL (7.6-11.3); Platelets 344 thou/uL (152-406); RBC Red Blood Cell Count 3.98 M/uL (3.86-4.86)
[2023-06-08 07:38] LABS: Specific Gravity 1.015 (1.005-1.030)
--- NOTE | 2023-06-08 07:42 | RAD REPORT ---
EXAM DESCRIPTION: CT - Head Brain Wo Cont - 06/08/2023 7:37 am CLINICAL HISTORY: DIZZINESS COMPARISON: Head angio dated 06/08/2023; Neck Angio dated 06/08/2023 TECHNIQUE: All CT scans are performed using dose optimization technique as appropriate and may inclu de automated exposure control or mA/KV adjustment according to patient size. FINDINGS: No intracranial hemorrhage, hydrocephalus or extra-axial fluid collection.No areas of brai n edema or evidence of midline shift. The paranasal sinuses and mastoids are clear. The calvarium is intact. IMPRESSION: No acute intracranial abnormality.
--- NOTE | 2023-06-08 07:43 | RAD REPORT ---
EXAM DESCRIPTION: CT - Neck Angio - 06/08/2023 7:37 am CLINICAL HISTORY: dizzy, vertigo, right neck pain COMPARISON: No comparisons TECHNIQUE: CT angiography of the neck vessels was performed with maximum intensity reformatted image s. CAROTID STENOSIS REFERENCE USING NASCET CRITERIA: Mild - <50% stenosis. Moderate - 50-69% stenosis. Severe - 70-94% stenosis. Near occlusion - 95-99% stenosis. Occluded - 100% stenosis. All CT scans are performed using dose optimization technique as appropriate and may include automated exposure control or mA/KV adjustment according to patient size. FINDINGS: A left aortic arch is identified with normal three vessel configuration of the great vesse ls. No significant flow abnormality is seen of the common carotid bilaterally. No significant stenosis is identified involving the cervical segments of both internal carotid arteri es. Normal flow is seen within both vertebral arteries. IMPRESSION: No significant flow abnormality of the neck vessels is identified.
--- NOTE | 2023-06-08 07:46 | RAD REPORT ---
EXAM DESCRIPTION: CT - Head angio - 06/08/2023 7:37 am CLINICAL HISTORY: DIZZINESS COMPARISON: Neck Angio dated 06/08/2023 TECHNIQUE: CT angiography of the head was performed with maximum intensity reformatted images. All CT scans are performed using dose optimization technique as appropriate and may include automated exposure control or mA/KV adjustment according to patient size. FINDINGS: Anterior circulation: No aneurysm or large vessel occlusion. No hemodynamically significant stenosis. No arteriovenous malf ormation identified. Posterior circulation: No aneurysm or large vessel occlusion. No hemodynamically significant stenosis. No arteriovenous malf ormation identified. IMPRESSION: No significant flow abnormality is detected.
[2023-06-08 07:47] LABS: SARS-CoV-2 Antigen Rapid Res Negative (Negative)
--- NOTE | 2023-06-08 08:05 | EDPHYS ---
Physician Documentation [facility] Name: Cecelia Polk Age: 32 yrs Sex: Female : 1990 Arrival Date: 06/08/2023 Time: 06:26 Bed 5 Private MD: ED Physician Sylvester Bundy HPI: 06/08 07:12 This 32 yrs old [place] Female presents to ER via Wheelchair with complaints of Ear rn Pain, Headache, Dizziness, Nausea/Vomiting. 07:12 The patient presents with dizziness, feeling off balance, sense of spinning. rn 07:13 Onset: The symptoms/episode began/occurred yesterday. Context: occurred at home, rn occurred while the patient was at rest. Modifying factors: The symptoms are alleviated by closing eyes, holding head still, lying down, the symptoms are aggravated by movement of head, standing up, changing position. Associated signs and symptoms: Pertinent positives: nausea, vomiting, Pertinent negatives: abdominal pain, chest pain, seizure, shortness of breath. Severity of symptoms: At their worst the symptoms were moderate in the emergency department the symptoms have improved. The patient has not experienced similar symptoms in the past. The patient has not recently seen a physician. Patient reports 2 days of right ear fullness, tinnitus, headache, dizziness, nausea and vomiting. Has a sensation of spinning and off-balance when tries to walk and changes position. Feels better currently. No head injury. No history of brain tumor or cancer in the family. No fever. No runny nose or sore throat. No chest pain or shortness of breath. No changes in medication. No focal weakness or numbness. No vision changes. 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 - Social history:: Smoking status: Patient denies any tobacco usage or history of. Patient/guardian denies using alcohol, street drugs, IV drugs. - Family history:: not pertinent. - Hospitalizations: : No recent hospitalization is reported. ROS: 07:13 Constitutional: Negative for fever, chills, and weight loss, ENT: Positive for right rn ear fullness and tinnitus Neck: Right posterior neck pain Cardiovascular: Negative for chest pain, palpitations, and edema, Respiratory: Negative for shortness of breath, cough, wheezing, and pleuritic chest pain, Abdomen/GI: Negative for abdominal pain, nausea, vomiting, diarrhea, and constipation, Back: Negative for injury and pain, MS/Extremity: Negative for injury and deformity, Skin: Negative for injury, rash, and discoloration, Neuro: Positive for headache Exam: 07:13 Constitutional: This is a well developed, well nourished patient who is awake, alert, rn and in no acute distress. Head/Face: Normocephalic, atraumatic. Eyes: Pupils equal round and reactive to light, extra-ocular motions intact. Neck: Trachea midline, no masses palpated, and no cervical lymphadenopathy. Supple, full range of motion without nuchal rigidity, or vertebral point tenderness. No Meningismus. Cardiovascular: Regular rate and rhythm. No pulse deficits. Respiratory: No increased work of breathing, no retractions or nasal flaring. Abdomen/GI: Soft, non-tender Skin: Warm, dry MS/ Extremity: Pulses equal, no cyanosis. Neuro: Awake and alert, GCS 15, oriented to person, place, time, and situation. Cranial nerves II-XII grossly intact. Motor strength 5/5 in all extremities. Sensory grossly intact. Cerebellar exam normal. Normal gait. Vital Signs: 06:43 BP 150 / 99; Pulse 66; Resp 16 S; Temp 98.4(O); Pulse Ox 99% on R/A; Weight 108.86 kg; jw7 Height 5 ft. 6 in. ; Pain 4/10; 07:46 BP 157 / 106; Pulse 58; Resp 16 S; Pulse Ox 100% on R/A; kc6 06:43 Body Mass Index 38.74 (108.86 kg, 167.64 cm) [facility] 06:43 Pain Scale: Adult [facility] MDM: 06:59 Patient medically screened. rn 07:58 Differential diagnosis: cardiac arrhythmia, generalized weakness, hyperventilation, rn hypovolemia, idiopathic dizziness, vertigo, Viral syndrome, otitis, dehydration. Data reviewed: vital signs, nurses notes, lab test result(s), EKG, radiologic studies, CT scan, and as a result, I will discharge patient. Independent interpretation of the following test(s) in the Emergency Department EKG: See my EKG interpretation above CT Scan: My interpretation is CT head images negative for hemorrhage or acute abnormality per my interpretation. Counseling: I had a detailed discussion with the patient and/or guardian regarding the historical points, exam findings, and any diagnostic results supporting the discharge/admit diagnosis, lab results, radiology results, the need for outpatient follow up, to return to the emergency department if symptoms worsen or persist or if there are any questions or concerns that arise at home. Special discussion: I discussed with the patient/guardian in detail that at this point there is no indication for admission to the hospital. It is understood, however, that if the symptoms persist or worsen the patient needs to return immediately for re-evaluation. 06/08 06:49 Order name: Flu; Complete Time: 07:53 [facility] 06/08 06:49 Order name: SARS RAPID; Complete Time: 07:53 [facility] 06/08 06:49 Order name: Test, Urine; Complete Time: 07:53 [facility] 06/08 07:07 Order name: CBC with Diff; Complete Time: 07:53 06/08 07:07 Order name: Basic Metabolic Panel; Complete Time: 07:53 rn 06/08 07:06 Order name: CT Head Brain wo Cont; Complete Time: 07:53 rn 06/08 07:07 Order name: Neck Angio CT; Complete Time: 07:53 06/08 07:07 Order name: Head Angio CT; Complete Time: 07:53 rn 06/08 07:07 Order name: IV Start; Complete Time: 07:23 rn Administered Medications: 07:23 Drug: Meclizine PO 50 mg PO once Route: PO; kc6 07:23 Drug: NS 0.9% IV 1000 ml IV at 1000 ml once Route: IV; Rate: 1000 ml; Site: left kc antecubital; 08:22 Follow up: Response: No adverse reaction; IV Status: Completed infusion kc6 07:23 Drug: Ondansetron IVP 4 mg IVP once; over 2 minutes Route: IVP; Site: left antecubital; kc6 07:46 Follow up: Response: No adverse reaction; Nausea is decreased; Vomiting decreased [facility] Disposition Summary: 06/08/23 08:04 Discharge Ordered Notes: Location: Home rn Problem: new rn Symptoms: have improved rn Condition: Stable rn Diagnosis - Dizziness and giddiness rn - Vertigo rn Followup: rn - With: Private Physician - When: As needed - Reason: Recheck today's complaints, Re-evaluation by your physician Discharge Instructions: - Discharge Summary Sheet rn - Dizziness rn - Vertigo rn Forms: - Medication Reconciliation Form rn - Thank You Letter rn - Antibiotic manager of internal audit - Prescription Opioid Use rn - Patient Portal Instructions rn - Leadership Thank You Letter rn Prescriptions: - ondansetron 4 mg Oral Tablet,disintegrating - take 1 tablet ORAL route every 8 hours As needed; 10 tablet; Refills: 0, rn Product Selection Permitted - Meclizine 25 mg Oral Tablet - take 1 tablet ORAL route every 8 hours As needed; 30 tablet; Refills: 0, rn Product Selection Permitted Signatures: Dispatcher [employer] Sylvester Toledo MD MD rn Waits, Jodi RN RN jw7 Charisse Vela RN RN kc6
--- NOTE | 2023-06-08 08:05 | ER ---
Nurse's Notes [facility] Name: Cecelia Polk Age: 32 yrs Sex: Female : 1990 Arrival Date: 06/08/2023 Time: 06:26 Bed 5 Private MD: Diagnosis: Dizziness and giddiness;Vertigo Presentation: 06/08 06:43 Chief complaint: Patient states: "I can't hear out of my right ear, feels like a lot of jw7 pressure", c/o nausea, vomiting, dizziness, tinnitus, and pain to the back of the head/neck. Coronavirus screen: At this time, the client does not indicate any symptoms associated with coronavirus-19. Ebola Screen: No symptoms or risks identified at this time. Initial Sepsis Screen: Does the patient meet any 2 criteria? No. Patient's initial sepsis screen is negative. Does the patient have a suspected source of infection? No. Patient's initial sepsis screen is negative. Risk Assessment: Do you want to hurt yourself or someone else? Patient reports no desire to harm self or others. Onset of symptoms was June 07, 2023 at 15:00. 06:43 Acuity: CRISTOBAL 4 jw7 06:43 Method Of Arrival: Wheelchair jw7 07:11 Acuity: CRISTOBAL 3 iw Triage Assessment: 06:46 General: Appears in no apparent distress. comfortable, Behavior is calm, cooperative. jw7 Pain: Complains of pain in occipital area and base of the skull Pain does not radiate. Pain currently is 4 out of 10 on a pain scale. Quality of pain is described as pressure, Pain began 1 day ago. Is continuous, Alleviated by medications, rest, Aggravated by increased activity, repositioning, Noted to be resistant to movement, Also complains of. EENT: Reports ringing in right ear. Neuro: [place]aval[place] Agitation-Sedation Scale (RASS): 0 - Alert and Calm Level of Consciousness is awake, alert, obeys commands, Oriented to person, place, time, situation. Cardiovascular: No deficits noted. Respiratory: No deficits noted. GI: No deficits noted. No signs and/or symptoms were reported involving the gastrointestinal system. : No deficits noted. No signs and/or symptoms were reported regarding the genitourinary system. Derm: No deficits noted. No signs and/or symptoms reported regarding the dermatologic system. Musculoskeletal: No deficits noted. No signs and/or symptoms reported regarding the musculoskeletal system. 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 - Social history:: Smoking status: Patient denies any tobacco usage or history of. Patient/guardian denies using alcohol, street drugs, IV drugs. - Family history:: not pertinent. - Hospitalizations: : No recent hospitalization is reported. Screenin:43 [facility] ED Fall Risk Assessment (Adult) History of falling in the last 3 months, jw7 including since admission No falls in past 3 months (0 pts) Score/Fall Risk Level 0 - 2 = Low Risk Oriented to surroundings, Maintained a safe environment. Abuse screen: Denies threats or abuse. Denies injuries from another. Nutritional screening: No deficits noted. Tuberculosis screening: No symptoms or risk factors identified. Assessment: 06:49 General: see triage assessment. jw7 07:24 General: Appears in no apparent distress. Behavior is calm, cooperative. Pain: iw Complains of pain in base of the skull and occipital area and right ear. Neuro: Level of Consciousness is awake, alert, obeys commands, Oriented to person, place, time, situation, Moves all extremities. Full function. Neuro: Reports dizziness, headache. Cardiovascular: Patient's skin is warm and dry. Respiratory: Respiratory effort is even, unlabored. Derm: Skin is intact, is healthy with good turgor. Vital Signs: 06:43 BP 150 / 99; Pulse 66; Resp 16 S; Temp 98.4(O); Pulse Ox 99% on R/A; Weight 108.86 kg; jw7 Height 5 ft. 6 in. ; Pain 4/10; 07:46 BP 157 / 106; Pulse 58; Resp 16 S; Pulse Ox 100% on R/A; kc6 06:43 Body Mass Index 38.74 (108.86 kg, 167.64 cm) jw7 06:43 Pain Scale: Adult jw7 ED Course: 06:27 Patient arrived in ED. jj6 06:43 Patient has correct armband on for positive identification. Bed in low position. Call [facility] light in reach. 06:46 Triage completed. jw7 06:46 Arm band placed on. jw7 06:59 Sylvester Bundy MD is Attending Physician. rn 07:11 Dalia Phan RN is Primary Nurse. iw 07:24 Inserted saline lock: 20 gauge in left antecubital area, using aseptic technique. Blood kc6 collected. Patient maintains SpO2 saturation greater than 95% on room air. 07:24 No provider procedures requiring assistance completed. iw 07:39 CT Head Brain wo Cont In Process Unspecified. EDMS 07:[address] In Process Unspecified. EDMS 07:[address] In Process Unspecified. EDMS Administered Medications: 07:23 Drug: Meclizine PO 50 mg PO once Route: PO; kc6 07:23 Drug: NS 0.9% IV 1000 ml IV at 1000 ml once Route: IV; Rate: 1000 ml; Site: left kc6 antecubital; 08:22 Follow up: Response: No adverse reaction; IV Status: Completed infusion kc6 07:23 Drug: Ondansetron IVP 4 mg IVP once; over 2 minutes Route: IVP; Site: left antecubital; kc6 07:46 Follow up: Response: No adverse reaction; Nausea is decreased; Vomiting decreased kc6 Outcome: 08:04 Discharge ordered by . rn 08:22 Patient left the ED. jl7 Signatures: Dispatcher [employer] EDMS Dalia Phan, RN Sylvester Molina MD MD rn Leal, Jahala RN RN jl7 Lilian Knox jj6 Sumi Odonnell, RN RN jw7 Charisse Vela RN RN kc6
[2023-06-08 08:49] VITALS: TEMP 98.4
[2023-06-08 08:50] VITALS: BP 157/106; O2SAT 100
== END 2023-06-08 08:22 | disposition home or self-care (01) ==
LOC: ER 06:26
DX: R42 Dizziness and giddiness (principal); Z11.52 Encounter for screening for COVID-19
CPT/HCPCS: 96361; 85025; 80048; 36415; 81025; 87804 ×2; 70450; 70496; 70498; 96374; 99284; 87811; Q9967; J8597; J2405; J7030

== ENCOUNTER 2024-02-04 16:10 | Emergency (ER) | payer BC ==
--- OUTSIDE RECORDS SUMMARY | 2024-02-04 16:23 | XMS REPORT | Continuity of Care Document ---
Author Name Unknown Address [address] [place] [address] [facility] Address [address] [place] [address] Care Team Providers Care Director Of Sustainable Design Name Role Phone Blanca Doss MD Primary Care Physician + [phone] DOLORES ALCAZAR Attending Clinician Unavailable BLANCA DOSS Attending Clinician Unavailab BLANCA Patterson Attending Clinician Unavailab le Doctor Unassigned, [place] Attending Clinician U navailable 2, [facility] Attending Clinician Unavailable Dolores Alcazar MD Attending Clinician [phone] Nurse, [facility] Attending Clinician Un available Odette Rene MD Attending Clinician [phone] Sreekanth Jhaveri MD Attending Clinician Pob, [facility] Main Attending Clinician Unavailabl e Room, [facility] Attending Clinician Unavailable 1, [facility] Room Attending Clinician Unavailable Gi Vance MD Attending Clinician [phone] GI VANCE Attending Clinician Unavailable GI VANCE Attending Clinician Unavailable Ultrasound, Ang-Mfm Attending Clinician Unavaila ble Lab, Ang - Db Attending Clinician Unavailable Nurse, [facility] Attending Clinician Unavailable Heath Gallo DO Attending Clinician [phone] HEATH AGLLO Attending Clinician Unavailable EUGENE RICCI Attending Clinician Unavailable KAYLEEN SCHAEFER Attending Clinician Unavailable Kindra Griggs MD Attending Clinician [phone] Eugene Ricci PA-C Attending Clinician [phone] KINDRA GRIGGS Attending Clinician Unavailable Only, Adc Test Attending Clinician Unavailable Ultrasound, [facility] Mfm Attending Clinician Unavaila ble Lab, [facility] Fam Pob I Attending Clinician Unavailab le Anene [employer]UCK [employer]PATCHER, Estephania Attending Clinician [phone] Jatinder Yeh MD Attending Clinician [phone] DOLORES ALCAZAR Admitting Clinician Unavailable Dolores Alcazar MD Admitting Clinician [phone] Kindra Griggs MD Admitting Clinician [phone] KINDRA GRIGGS Admitting Clinician Unavailable Payers Payer Name Policy Type Policy Number Effective Date Expirati on Date Source [facility] [id number] 2022 00:00:00 [place] [facility] [id number] 2022 00:00:00 Problems Condition Name Condition Details Condition Category Status Onset Date Resolution Date Last Treatment Date Treating Clinician Comments Source Liveborn , of lackey , born in hospital by delivery Liveborn infant, of lackey , born in hospital by delivery Disease Active 2022-08 00:00: 00 [facility] Encounter for female sterilizat ion procedure Encounter for female sterilizat ion procedure Disease Active 2022-08 00:00: 00 [facility] Polyhydram nios, antepartum , single or unspecifie d fetus Polyhydram nios, antepartum , single or unspecifie d fetus Disease Active 2022-08 00:00: 00 [facility] Excessive growth affecting , antepartum , single or unspecifie d fetus Excessive growth affecting , antepartum , single or unspecifie d fetus Disease Active 2022-08 0 00:00: 00 [facility] High-risk in third trimester High-risk in third trimester Disease Active 2023-0 9-27 00:00: 00 [facility] 34 weeks gestation of 34 weeks gestation of Disease Active 0 9-27 00:00: 00 [facility] 36 weeks gestation of 36 weeks gestation of Disease Active 0 9-27 00:00: 00 [facility] 37 weeks gestation of 37 weeks gestation of Disease Active 0 9-27 00:00: 00 [facility] Insulin controlled gestationa l diabetes mellitus (GDM) in third trimester Insulin controlled gestationa l diabetes mellitus (GDM) in third trimester Disease Active 0 8-30 00:00: 00 [facility] Previous section complicati ng Previous section complicati ng Disease Active 0 3-21 00:00: 00 [facility] High-risk in first trimester High-risk in first trimester Disease Active 0 3-21 00:00: 00 [facility] 7 weeks gestation of 7 weeks gestation of Disease Active 0 3-21 00:00: 00 [facility] 39 weeks gestation of 39 weeks gestation of Disease Active 1 0-26 00:00: 00 [facility] Liveborn infant, of lackey , born in hospital by delivery Liveborn infant, of lackey , born in hospital by delivery Disease Active 1 0-26 00:00: 00 [facility] Morbid obesity with body mass index of 40.0-49.9 Morbid obesity with body mass index of 40.0-49.9 Disease Active 0 8-28 00:00: 00 [facility] Obesity (BMI 30-39.9) Obesity (BMI 30-39.9) Disease Active 0 4-20 00:00: 00 [facility] Mild intermitte nt asthma without complicati on Mild intermitte nt asthma without complicati on Disease Active 0 4-20 00:00: 00 [facility] Supervisio n of other normal Supervisio n of other normal Disease Active 0 4-20 00:00: 00 [facility] Previous section Previous section Disease Active 11-26 00:00: 00 [facility] Allergies, Adverse Reactions, Alerts Allergy Name Allergy Type Status Severity Reaction(s) Onset Date Inactive Date Treating Clinician Comments Source NO KNOWN ALLERGIE S Drug Class Active [facility] Social History Social Habit Start Date Stop Date Quantity Comments Source ASSERTION 2022-09-19 00:00:00 [facility] Alcohol intake 2023-10-11 00:00:00 2023-10-11 00:00:00 Ex-drinker (finding) [facility] History of Social function 2023-10-11 00:00:00 2023-10-11 00:00:00 [facility] Exposure to SARS-CoV-2 (event) 2023-01-09 00:00:00 2023-01-19 11:04:00 Not sure [facility] Tobacco use and exposure 2022-10-27 00:00:00 2022-10-27 00:00:00 Smokeless tobacco non-user [facility] Sex Assigned At 1990 00:00:00 1990 00:00:00 [facility] Smoking Status Start Date Stop Date Source Never smoked tobacco [facility] Medications Ordered Medication Name Filled Medication Name Start Date Stop Date Current Medication? Ordering Clinician Indication Dosage Frequency Signature (SIG) Comments Components Source losartan 25 mg tablet 10-10 00:00: 00 Yes [id number] 25mg Take 1 tablet by mouth in the morning. [facility] ibuprofen (IBU) tablet 600 mg 2022-08 17:00: 00 Yes 600mg 600 mg, Oral, Q6H, First dose on Wed05/26/23 at 1200, Until Discontinu ed, Routine [facility] vit no.124/iron /folic ( VITAMIN ORAL) 2022-08 11:26: 39 05-26 00:00 :00 No Take by mouth. [facility] HYDROcodone -acetaminop hen (NORCO 5) 5-325 mg tablet 1 tablet 2022-08 02:00: 00 Yes 1{tbl} 1 tablet, Oral, Q6HPRN, Starting on Wed05/25/23 at 2100, Until Discontinu ed, Routine, Pain (scale 4-6), Alternate with Ibuprofen [facility] HYDROcodone -acetaminop hen (NORCO 5) 5-325 mg tablet 2 tablet 2022-08 02:00: 00 Yes 2{tbl} 2 tablet, Oral, Q6HPRN, Starting on Wed05/25/23 at 2100, Until Discontinu ed, Routine, Pain (scale 7-10), Alternate with Ibuprofen [facility] vitamin w/FA tablet 2022-08 00:00: 00 Yes [id number] 1{tbl} Take 1 tablet by mouth in the morning. [facility] ibuprofen 600 mg tablet 2022-08 00:00: 00 06-22 00:00 :00 No [id number] 600mg Take 1 tablet by mouth every 6 (six) hours. [facility] gabapentin 300 mg capsule 2022-08 00:00: 00 06-22 00:00 :00 No [id number] 300mg Take 1 capsule by mouth in the morning and 1 capsule at noon and 1 capsule in the evening. [facility] HYDROcodone -acetaminop hen 5-325 mg tablet 2022-08 00:00: 00 06-03 04:59 :00 No [id number] 1{tbl} Take 1 tablet by mouth every 6 (six) hours as needed for Pain (scale 4-6) (Alternate with Ibuprofen) for up to 7 days. Indication s: acute pain [facility] acetaminoph en ADULT (OFIRMEV) injection 1,000 mg 2022-08 20:00: 00 05-25 21:17 :00 No 1000mg 1,000 mg, IV Infusion, at 400 mL/hr Administer over 15 Minutes, ONCE, 1 dose, On Wed05/25/23 at 1500, Routine
Indicatio n: Perioperat chantal Patient [facility] gabapentin (NEURONTIN) capsule 300 mg 2022-08 19:00: 00 Yes 300mg 300 mg, Oral, TID, First dose on Wed05/25/23 at 1400, Until Discontinu ed, Routine [facility] ketorolac (TORADOL) injection 30 mg 2022-08 17:00: 00 05-26 11:07 :00 No 30mg 30 mg, Slow IV Push, Q6H, 4 doses, First dose on Wed05/25/23 at 1200, Last dose on Wed05/26/23 at 0600, Routine [facility] lactated ringers IV infusion 1,000 mL 2022-08 15:45: 00 05-25 16:56 :44 No 1000mL at 125 mL/hr, 1,000 mL, IV Infusion, ONCE, 1 dose, On Wed05/25/23 at 1045, Routine [facility] diphenhydrA MINE (BENADRYL) injection 25 mg 2022-08 14:50: 30 Yes 25mg 25 mg, Slow IV Push, Q6HPRN, Starting on Wed05/25/23 at 0950, Until Discontinu ed, Routine, Itching [facility] diphenhydrA MINE (BENADRYL) tablet 25 mg 2022-08 14:50: 30 Yes 25mg 25 mg, Oral, Q6HPRN, Starting on Wed05/25/23 at 0950, Until Discontinu ed, Routine, Sleep, Itching [facility] ondansetron (ZOFRAN (PF)) injection 4 mg 2022-08 14:50: 30 Yes 4mg 4 mg, Slow IV Push, Q8HPRN, Starting on Wed05/25/23 at 0950, Until Discontinu ed, Routine, Nausea and Vomiting (N/V) [facility] bisacodyL (DULCOLAX) suppository 10 mg 2022-08 14:50: 30 Yes 10mg 10 mg, Rectal, QDAILYPRN, Starting on Wed05/25/23 at 0950, Until Discontinu ed, Routine, Constipati on [facility] simethicone (GAS RELIEF (SIMETHICON E)) chewable tablet 160 mg 2022-08 14:50: 30 Yes 160mg 160 mg, Oral, PC+HSPRN, Starting on Wed05/25/23 at 0950, Until Discontinu ed, Routine, Gas [facility] docusate (COLACE) capsule 200 mg 2022-08 14:50: 30 Yes 200mg 200 mg, Oral, QDAILYPRN, Starting on Wed05/25/23 at 0950, Until Discontinu ed, Routine, Constipati on [facility] magnesium hydroxide (MILK OF MAGNESIA) 400 mg/5 mL suspension 30 mL 2022-08 14:50: 30 Yes 30mL 30 mL, Oral, QDAILYPRN, Starting on Wed05/25/23 at 0950, Until Discontinu ed, Routine, Constipati on [facility] lactated ringers IV infusion 1,000 mL 2022-08 14:50: 30 Yes 1000mL at 125 mL/hr, 1,000 mL, IV Infusion, PRN, 1 dose, Starting on Wed05/25/23 at 0950, Until Discontinu ed, Routine [facility] acetaminoph en ADULT (OFIRMEV) injection 2022-08 13:59: 00 05-25 14:50 :13 No IV Infusion, Administer over 15 Minutes, ONCE INTRA PROCEDURE, Starting on Wed05/25/23 at 0859, Until Wed05/25/23 at 0950, Routine, Intra-op [facility] oxytocin (PITOCIN) 30 units in NS 500 mL IV infusion 2022-08 13:51: 00 05-25 14:50 :13 No IV Infusion, CONTINUOUS PRN, Starting on Wed05/25/23 at 0851, Until Wed05/25/23 at 0950, Routine, Intra-op [facility] NaCl 0.9% (NS) IV infusion 2022-08 13:50: 00 05-25 14:50 :13 No IV Infusion, CONTINUOUS PRN, Starting on Wed05/25/23 at 0850, Until Wed05/25/23 at 0950, Routine, Intra-op [facility] sodium chloride 0.9 % irrigation solution 2022-08 13:35: 00 Yes PRN, Starting on Wed05/25/23 at 0835, Until Discontinu ed, Intra-op [facility] ondansetron (ZOFRAN (PF)) injection 2022-08 13:26: 00 05-25 14:50 :13 No Slow IV Push, ONCE INTRA PROCEDURE, Starting on Wed05/25/23 at 0826, Until Wed05/25/23 at 0950, Routine, Intra-op [facility] PHENYLephri ne 1000 mcg/10 mL in 0.9% NaCl syringe 2022-08 13:18: 00 05-25 14:50 :13 No Intravenou s, CONTINUOUS PRN, Starting on Wed05/25/23 at 0818, Until Wed05/25/23 at 0950, Routine, Intra-op [facility] ePHEDrine 25 mg/5 mL (5 mg/mL) syringe 2022-08 13:16: 00 05-25 14:50 :13 No Intravenou s, ONCE INTRA PROCEDURE, Starting on Wed05/25/23 at 0816, Until Wed05/25/23 at 0950, Routine, Intra-op [facility] morpHINE PF (DURAMORPH- PF) injection 2022-08 13:15: 00 05-25 14:50 :13 No Epidural, ONCE INTRA PROCEDURE, Starting on Wed05/25/23 at 0815, Until Wed05/25/23 at 0950, Routine, [facility]up[facility] -dextrose-w ater-pf (MARCAINE SPINAL (PF)) 0.75 % (7.5 mg/mL) injection 2022-08 13:15: 00 05-25 14:50 :13 No Intraspina l, ONCE INTRA PROCEDURE, Starting on Wed05/25/23 at 0815, Until Wed05/25/23 at 0950, Routine, [facility] ceFAZolin (ANCEF) injection 2022-08 13:09: 00 05-25 14:50 :13 No IV Piggyback, ONCE INTRA PROCEDURE, Starting on Wed05/25/23 at 0809, Until Wed05/25/23 at 0950, DARIA, Intra-op [facility] lactated ringers IV infusion 2022-08 13:05: 00 05-25 14:50 :13 No IV Infusion, CONTINUOUS PRN, Starting on Wed05/25/23 at 0805, Until Wed05/25/23 at 0950, Routine, Intra-op [facility] acetaminoph en (TYLENOL) tablet 650 mg 2022-08 11:15: 00 05-25 12:30 :00 No 650mg 650 mg, Oral, ONCE, 1 dose, On Wed05/25/23 at 0615, Routine [facility] lactated ringers IV infusion 1,000 mL 2022-08 11:15: 00 05-25 14:59 :09 No 1000mL at 125 mL/hr, 1,000 mL, IV Infusion, CONTINUOUS , Starting on Wed05/25/23 at 0615, Until Wed05/25/23 at 0959, Routine [facility] lactated ringers IV infusion 500 mL 2022-08 11:15: 00 05-25 12:52 :00 No 500mL at 999 mL/hr, 500 mL, IV Infusion, ONCE, 1 dose, On Wed05/25/23 at 0615, Routine [facility] sodium citrate-cit rach acid (BICITRA) 500-334 mg/5 mL solution 30 mL 2022-08 11:02: 54 05-25 12:52 :00 No 30mL 30 mL, Oral, PRE-PROCED URE ONCE, 1 dose, Starting on Wed05/25/23 at 0602, Until Wed05/27/23 at 2359, Routine, Surgery/Pr ocedure [facility] vit no.124/iron /folic ( VITAMIN ORAL) 2022-08 05:57: 56 Yes Take by mouth. [facility] ACCU-CHEK SOFTCLIX LANCETS [facility] 9-10 00:00: 00 05-26 00:00 :00 No [facility] Insulin Syringes, Disposable, 1 mL Syrg 30 00:00: 00 05-26 00:00 :00 No Use as directed [facility] insulin NPH (NOVOLIN N NPH U-100 INSULIN) 100 unit/mL injection 30 00:00: 00 05-26 00:00 :00 No Inject 15 units subcutaneo usly every night at 10 pm. [facility] BD VEO INSULIN SYRINGE UF 1 mL 31 gauge x 15/64" Syrg 04-07 00:00: 00 05-26 00:00 :00 No 10mg Take 10 mg by mouth. [facility] Blood-Gluco se Meter (ACCU-CHEK GUIDE GLUCOSE METER) [facility] 16 00:00: 00 05-26 00:00 :00 No Check blood sugar 4 times a day [facility] lancets 33 gauge [facility] 03-24 00:00: 00 05-26 00:00 :00 No Check blood sugar 4 times a day [facility] blood sugar diagnostic (ACCU-CHEK GUIDE TEST STRIPS) strip 03-24 00:00: 00 05-26 00:00 :00 No Check blood glucose 4 times a day [facility] Alcohol Swabs (ALCOHOL WIPES) [facility] 16 00:00: 00 05-26 00:00 :00 No Apply to area(s) 4 (four) times daily. [facility] ferrous sulfate (IRON, FERROUS SULFATE,) 325 mg (65 mg iron) tablet 03-10 00:00: 00 06-22 00:00 :00 No [id number] 325mg Take 1 tablet by mouth in the morning and 1 tablet in the evening. [facility] vit no.124/iron /folic ( VITAMIN ORAL) 19 11:20: 25 Yes Take by mouth. [facility] norethindro ne 0.35 mg tablet 2019-08 00:00: 00 10-29 00:00 :00 No [id number] 1{tbl} Take 1 tablet by mouth daily. [facility] ibuprofen (IBU) tablet 600 mg 2019-08 05:00: 00 Yes 600mg 600 mg, Oral, Q6H ABX, First dose on Wed06/05/20 at 0000, Until Discontinu ed, Routine [facility] PNV 102-iron-fo late 1-dss-dha 90 mg iron-1 mg -50 mg-200 mg Cap 2019-08 15:53: 17 06-04 00:00 :00 No Take by mouth. [facility] HYDROcodone -acetaminop hen (NORCO 5) 5-325 mg tablet 1 tablet 2019-08 15:49: 16 Yes 1{tbl} 1 tablet, Oral, Q6HPRN, Starting Wed06/04/20 at 1049, Until Discontinu ed, Routine, Pain (scale 7-10) [facility] acetaminoph en (TYLENOL) tablet 650 mg 2019-08 13:45: 00 Yes 650mg 650 mg, Oral, Q6H ABX, First dose on Wed06/04/20 at 0845, Until Discontinu ed, Routine [facility] ketorolac (TORADOL) injection 30 mg 2019-08 05:00: 00 06-04 22:40 :00 No 30mg 30 mg, Slow IV Push, Q6H ABX, 4 doses, First dose on Wed06/04/20 at 0000, Last dose on Wed06/04/20 at 1800, Routine
pricing/signage team member approving Restricted medication : KINDRA GRIGGS [facility] gabapentin (NEURONTIN) capsule 300 mg 2019-08 03:00: 00 Yes 300mg 300 mg, Oral, Q8H, First dose (after last modificati on) on Wed06/03/20 at 2200, Until Discontinu ed, Routine [facility] acetaminoph en 325 mg tablet 2019-08 00:00: 10-29 00:00 :00 No [id number] 650mg Take 2 tablets by mouth every 6 (six) hours as needed for Pain (scale 1-3) or Pain (scale 4-6). [facility] vitamin w/FA tablet 2019-08 00:00: 10-29 00:00 :00 No [id number] 1{tbl} Take 1 tablet by mouth daily. [facility] ferrous sulfate 325 mg (65 mg iron) tablet 2019-08 00:00: 10-29 00:00 :00 No [id number] 325mg Take 1 tablet by mouth 2 (two) times daily. [facility] ibuprofen 600 mg tablet 2019-08 00:00: 10-29 00:00 :00 No [id number] 600mg Take 1 tablet by mouth every 6 (six) hours as needed for Pain (scale 1-3) or Pain (scale 4-6) (Pain). Take with food or milk. [facility] docusate calcium 240 mg capsule 2019-08 00:00: 00 07-02 00:00 :00 No [id number] 240mg Take 1 capsule by mouth once daily as needed for Constipati on. [facility] HYDROcodone -acetaminop hen 5-325 mg tablet 2019-08 00:00: 06-12 05:59 :00 No [id number] 1{tbl} Take 1 tablet by mouth every 6 (six) hours as needed for Pain (scale 7-10) for up to 7 days. Indication s: acute pain [facility] gabapentin 300 mg capsule 2019-08 00:00: 00 06-10 05:59 :00 No [id number] 300mg Take 1 capsule by mouth every 8 (eight) hours for 5 days. [facility] acetaminoph en ADULT (OFIRMEV) injection 1,000 mg 2019-08 19:45: 00 06-03 19:59 :00 No 1000mg 1,000 mg, IV Infusion, Administer over 15 Minutes, ONCE, 1 dose, Wed06/03/20 at 1445, Routine, PACU
In dication: Perioperat chantal Patient [facility] gabapentin (NEURONTIN) capsule 300 mg 2019-08 19:00: 00 06-03 22:40 :54 No 300mg 300 mg, Oral, TID, First dose on Wed06/03/20 at 1400, Until Discontinu ed, Routine [facility] simethicone (GAS RELIEF (SIMETHICON E)) chewable tablet 160 mg 2019-08 18:00: 00 Yes 160mg 160 mg, Oral, PC+HS, First dose on Wed06/03/20 at 1300, Until Discontinu ed, Routine [facility] lactated ringers IV infusion 1,000 mL 2019-08 16:30: 00 Yes 1000mL at 75 mL/hr, 1,000 mL, IV Infusion, CONTINUOUS , Starting Wed06/03/20 at 1130, Until Discontinu ed, Routine, PACU [facility] rho(D) immune globulin (RHOGAM) syringe 300 mcg 2019-08 16:25: 26 Yes 300ug 300 mcg, Intramuscu lar, ONCE, For 1 dose, Conditiona l, Routine [facility] ondansetron (ZOFRAN (PF)) injection 4 mg 2019-08 16:25: 13 Yes 4mg 4 mg, Slow IV Push, Q8HPRN, Starting Wed06/03/20 at 1125, Until Discontinu ed, Routine, Nausea and Vomiting (N/V) [facility] magnesium hydroxide (MILK OF MAGNESIA) 400 mg/5 mL suspension 30 mL 2019-08 16:25: 13 Yes 30mL 30 mL, Oral, QDAILYPRN, Starting Wed06/03/20 at 1125, Until Discontinu ed, Routine, Constipati on [facility] diphenhydrA MINE (BENADRYL) tablet 25 mg 2019-08 16:25: 12 Yes 25mg 25 mg, Oral, Q6HPRN, Starting Wed06/03/20 at 1125, Until Discontinu ed, Routine, Sleep, Itching [facility] bisacodyL (DULCOLAX) suppository 10 mg 2019-08 16:25: 12 Yes 10mg 10 mg, Rectal, QDAILYPRN, Starting Wed06/03/20 at 1125, Until Discontinu ed, Routine, Constipati on [facility] docusate calcium (SURFAK) capsule 240 mg 2019-08 16:25: 12 Yes 240mg 240 mg, Oral, QDAILYPRN, Starting Wed06/03/20 at 1125, Until Discontinu ed, Routine, Constipati on [facility] ondansetron (ZOFRAN (PF)) injection 4 mg 2019-08 16:24: 51 Yes 4mg 4 mg, Slow IV Push, PRN, 1 dose, Starting Wed06/03/20 at 1124, Until Discontinu ed, Routine, Nausea and Vomiting (N/V), PACU [facility] mupirocin (BACTROBAN OINT) 2 % skin ointment 2019-08 14:20: 00 Yes Intra-op [facility] lactated ringers IV infusion 500 mL 2019-08 13:30: 00 06-03 12:37 :00 No 500mL at 999 mL/hr, 500 mL, IV Infusion, ONCE, 1 dose, Wed06/03/20 at 0830, Routine [facility] sodium chloride 0.9 % irrigation solution 2019-08 13:28: 00 Yes PRN, Starting Wed06/03/20 at 0828, Until Discontinu ed, Intra-op [facility] sodium citrate-cit rach acid (BICITRA) 500-334 mg/5 mL solution 30 mL 2019-08 12:23: 52 06-03 12:36 :00 No 30mL 30 mL, Oral, PRE-PROCED URE ONCE, 1 dose, Starting Wed06/03/20 at 0723, Until Wed06/03/20 at 0736, Routine, Surgery [facility] PNV 102-iron-fo late 1-dss-dha 90 mg iron-1 mg -50 mg-200 mg Cap 11-26 14:01: 37 Yes Take by mouth. [facility] albuterol 90 mcg/actuati on inhaler 11-26 00:00: 00 06-04 00:00 :00 No [id number] 2{puff} Inhale 2 Puffs every 6 (six) hours as needed for Wheezing, Shortness of Breath, Bronchospa sm or Chest tightness. [facility] Immunizations Ordered Immunization Name Filled Immunization Name Date Status Comments Source TDAP 2023-03-24 00:00:00 Completed [facility] TDAP 2023-03-24 00:00:00 Completed [facility] TDAP 2023-03-24 00:00:00 Completed [facility] TDAP 2023-03-24 00:00:00 Completed [facility] TDAP 2023-03-24 00:00:00 Completed [facility] TDAP 2023-03-24 00:00:00 Completed [facility] TDAP 2023-03-24 00:00:00 Completed [facility] TDAP 2023-03-24 00:00:00 Completed [facility] TDAP 2023-03-24 00:00:00 Completed [facility] TDAP 2023-03-24 00:00:00 Completed [facility] SARS-COV-2 COVID-19 PFIZER VACCINE 2020-12-07 00:00:00 Completed [facility] SARS-COV-2 COVID-19 PFIZER VACCINE 2020-12-07 00:00:00 Completed [facility] SARS-COV-2 COVID-19 PFIZER VACCINE 2020-12-07 00:00:00 Completed [facility] SARS-COV-2 COVID-19 PFIZER VACCINE 2020-12-07 00:00:00 Completed [facility] SARS-COV-2 COVID-19 PFIZER VACCINE 2020-12-07 00:00:00 Completed [facility] SARS-COV-2 COVID-19 PFIZER VACCINE 2020-12-07 00:00:00 Completed [facility] SARS-COV-2 COVID-19 PFIZER VACCINE 2020-12-07 00:00:00 Completed [facility] SARS-COV-2 COVID-19 PFIZER VACCINE 2020-12-07 00:00:00 Completed [facility] SARS-COV-2 COVID-19 PFIZER VACCINE 2020-12-07 00:00:00 Completed [facility] SARS-COV-2 COVID-19 PFIZER VACCINE 2020-12-07 00:00:00 [facility] [facility] SARS-COV-2 COVID-19 PFIZER VACCINE 2020-12-07 00:00:00 Completed [facility] SARS-COV-2 COVID-19 PFIZER VACCINE 2020-12-07 00:00:00 Completed [facility] SARS-COV-2 COVID-19 PFIZER VACCINE 2020-12-07 00:00:00 Completed [facility] SARS-COV-2 COVID-19 PFIZER VACCINE 2020-12-07 00:00:00 Completed [facility] SARS-COV-2 COVID-19 PFIZER VACCINE 2020-12-07 00:00:00 Completed [facility] SARS-COV-2 COVID-19 PFIZER VACCINE 2020-12-07 00:00:00 Completed [facility] SARS-COV-2 COVID-19 PFIZER VACCINE 2020-12-07 00:00:00 Completed [facility] SARS-COV-2 COVID-19 PFIZER VACCINE 2020-12-07 00:00:00 Completed [facility] SARS-COV-2 COVID-19 PFIZER VACCINE 2020-12-07 00:00:00 Completed [facility] SARS-COV-2 COVID-19 PFIZER VACCINE 2020-12-07 00:00:00 Completed [facility] SARS-COV-2 COVID-19 PFIZER VACCINE 2020-12-07 00:00:00 Completed [facility] SARS-COV-2 COVID-19 PFIZER VACCINE 2020-12-07 00:00:00 Completed [facility] SARS-COV-2 COVID-19 PFIZER VACCINE 2020-12-07 00:00:00 Completed [facility] SARS-COV-2 COVID-19 PFIZER VACCINE 2020-12-07 00:00:00 Completed [facility] SARS-COV-2 COVID-19 PFIZER VACCINE 2020-12-07 00:00:00 Completed [facility] SARS-COV-2 COVID-19 PFIZER VACCINE 2020-12-07 00:00:00 Completed [facility] SARS-COV-2 COVID-19 PFIZER VACCINE 2020-12-07 00:00:00 Completed [facility] SARS-COV-2 COVID-19 PFIZER VACCINE 2020-12-07 00:00:00 Completed [facility] SARS-COV-2 COVID-19 PFIZER VACCINE 2020-12-07 00:00:00 Completed [facility] SARS-COV-2 COVID-19 PFIZER VACCINE 2020-12-07 00:00:00 Completed [facility] SARS-COV-2 COVID-19 PFIZER VACCINE 2020-11-16 00:00:00 Completed [facility] SARS-COV-2 COVID-19 PFIZER VACCINE 2020-11-16 00:00:00 Completed [facility] SARS-COV-2 COVID-19 PFIZER VACCINE 2020-11-16 00:00:00 Completed [facility] SARS-COV-2 COVID-19 PFIZER VACCINE 2020-11-16 00:00:00 Completed [facility] SARS-COV-2 COVID-19 PFIZER VACCINE 2020-11-16 00:00:00 Completed [facility] SARS-COV-2 COVID-19 PFIZER VACCINE 2020-11-16 00:00:00 Completed [facility] SARS-COV-2 COVID-19 PFIZER VACCINE 2020-11-16 00:00:00 Completed [facility] SARS-COV-2 COVID-19 PFIZER VACCINE 2020-11-16 00:00:00 Completed [facility] SARS-COV-2 COVID-19 PFIZER VACCINE 2020-11-16 00:00:00 Completed [facility] SARS-COV-2 COVID-19 PFIZER VACCINE 2020-11-16 00:00:00 Completed [facility] SARS-COV-2 COVID-19 PFIZER VACCINE 2020-11-16 00:00:00 Completed [facility] SARS-COV-2 COVID-19 PFIZER VACCINE 2020-11-16 00:00:00 Completed [facility] SARS-COV-2 COVID-19 PFIZER VACCINE 2020-11-16 00:00:00 Completed [facility] SARS-COV-2 COVID-19 PFIZER VACCINE 2020-11-16 00:00:00 Completed [facility] SARS-COV-2 COVID-19 PFIZER VACCINE 2020-11-16 00:00:00 Completed [facility] SARS-COV-2 COVID-19 PFIZER VACCINE 2020-11-16 00:00:00 Completed [facility] SARS-COV-2 COVID-19 PFIZER VACCINE 2020-11-16 00:00:00 Completed [facility] SARS-COV-2 COVID-19 PFIZER VACCINE 2020-11-16 00:00:00 Completed [facility] SARS-COV-2 COVID-19 PFIZER VACCINE 2020-11-16 00:00:00 Completed [facility] SARS-COV-2 COVID-19 PFIZER VACCINE 2020-11-16 00:00:00 Completed [facility] SARS-COV-2 COVID-19 PFIZER VACCINE 2020-11-16 00:00:00 Completed [facility] SARS-COV-2 COVID-19 PFIZER VACCINE 2020-11-16 00:00:00 Completed [facility] SARS-COV-2 COVID-19 PFIZER VACCINE 2020-11-16 00:00:00 Completed [facility] SARS-COV-2 COVID-19 PFIZER VACCINE 2020-11-16 00:00:00 Completed [facility] SARS-COV-2 COVID-19 PFIZER VACCINE 2020-11-16 00:00:00 Completed [facility] SARS-COV-2 COVID-19 PFIZER VACCINE 2020-11-16 00:00:00 Completed [facility] SARS-COV-2 COVID-19 PFIZER VACCINE 2020-11-16 00:00:00 Completed [facility] SARS-COV-2 COVID-19 PFIZER VACCINE 2020-11-16 00:00:00 Completed [facility] SARS-COV-2 COVID-19 PFIZER VACCINE 2020-11-16 00:00:00 Completed [facility] SARS-COV-2 COVID-19 PFIZER VACCINE 2020-11-16 00:00:00 Completed [facility] SARS-COV-2 COVID-19 PFIZER VACCINE 2020-11-16 00:00:00 Completed [facility] Influenza Virus Vaccine Quad .5 mL IM 6+ MO (FLUZONE/FLULAVAL/F LUARIX) 2020-05-22 00:00:00 Completed [facility] Influenza Virus Vaccine Quad .5 mL IM 6+ MO (FLUZONE/FLULAVAL/F LUARIX) 2020-05-22 00:00:00 Completed [facility] Influenza Virus Vaccine Quad .5 mL IM 6+ MO (FLUZONE/FLULAVAL/F LUARIX) 2020-05-22 00:00:00 Completed [facility] Influenza Virus Vaccine Quad .5 mL IM 6+ MO (FLUZONE/FLULAVAL/F LUARIX) 2020-05-22 00:00:00 Completed [facility] Influenza Virus Vaccine Quad .5 mL IM 6+ MO 2020-05-22 00:00:00 Completed [facility] Influenza Virus Vaccine Quad .5 mL IM 6+ MO 2020-05-22 00:00:00 Completed [facility] Influenza Virus Vaccine Quad .5 mL IM 6+ MO 2020-05-22 00:00:00 Completed [facility] Influenza Virus Vaccine Quad .5 mL IM 6+ MO 2020-05-22 00:00:00 Completed [facility] Influenza Virus Vaccine Quad .5 mL IM 6+ MO 2020-05-22 00:00:00 Completed [facility] Influenza Virus Vaccine Quad .5 mL IM 6+ MO 2020-05-22 00:00:00 Completed [facility] Influenza Virus Vaccine Quad .5 mL IM 6+ MO 2020-05-22 00:00:00 Completed [facility] Influenza Virus Vaccine Quad .5 mL IM 6+ MO 2020-05-22 00:00:00 Completed [facility] Influenza Virus Vaccine Quad .5 mL IM 6+ MO 2020-05-22 00:00:00 Completed [facility] Influenza Virus Vaccine Quad .5 mL IM 6+ MO 2020-05-22 00:00:00 Completed [facility] Influenza Virus Vaccine Quad .5 mL IM 6+ MO 2020-05-22 00:00:00 Completed [facility] Influenza Virus Vaccine Quad .5 mL IM 6+ MO 2020-05-22 00:00:00 Completed [facility] Influenza Virus Vaccine Quad .5 mL IM 6+ MO 2020-05-22 00:00:00 Completed [facility] Influenza Virus Vaccine Quad .5 mL IM 6+ MO 2020-05-22 00:00:00 Completed [facility] Influenza Virus Vaccine Quad .5 mL IM 6+ MO 2020-05-22 00:00:00 Completed [facility] Influenza Virus Vaccine Quad .5 mL IM 6+ MO 2020-05-22 00:00:00 Completed [facility] Influenza Virus Vaccine Quad .5 mL IM 6+ MO 2020-05-22 00:00:00 Completed [facility] Influenza Virus Vaccine Quad .5 mL IM 6+ MO 2020-05-22 00:00:00 Completed [facility] Influenza Virus Vaccine Quad .5 mL IM 6+ MO 2020-05-22 00:00:00 Completed [facility] Influenza Virus Vaccine Quad .5 mL IM 6+ MO 2020-05-22 00:00:00 Completed [facility] Influenza Virus Vaccine Quad .5 mL IM 6+ MO 2020-05-22 00:00:00 Completed [facility] Influenza Virus Vaccine Quad .5 mL IM 6+ MO 2020-05-22 00:00:00 Completed [facility] Influenza Virus Vaccine Quad .5 mL IM 6+ MO 2020-05-22 00:00:00 Completed [facility] Influenza Virus Vaccine Quad .5 mL IM 6+ MO 2020-05-22 00:00:00 Completed [facility] Influenza Virus Vaccine Quad .5 mL IM 6+ MO 2020-05-22 00:00:00 Completed [facility] Influenza Virus Vaccine Quad .5 mL IM 6+ MO 2020-05-22 00:00:00 Completed [facility] Influenza Virus Vaccine Quad .5 mL IM 6+ MO 2020-05-22 00:00:00 Completed [facility] Influenza Virus Vaccine Quad .5 mL IM 6+ MO 2020-05-22 00:00:00 Completed [facility] Influenza Virus Vaccine Quad .5 mL IM 6+ MO 2020-05-22 00:00:00 Completed [facility] Influenza Virus Vaccine Quad .5 mL IM 6+ MO 2020-05-22 00:00:00 Completed [facility] Influenza Virus Vaccine Quad .5 mL IM 6+ MO 2020-05-22 00:00:00 Completed [facility] Influenza Virus Vaccine Quad .5 mL IM 6+ MO 2020-05-22 00:00:00 Completed [facility] Influenza Virus Vaccine Quad .5 mL IM 6+ MO 2020-05-22 00:00:00 Completed [facility] Influenza Virus Vaccine Quad .5 mL IM 6+ MO 2020-05-22 00:00:00 Completed [facility] Influenza Virus Vaccine Quad .5 mL IM 6+ MO 2020-05-22 00:00:00 Completed [facility] Influenza Virus Vaccine Quad .5 mL IM 6+ MO 2020-05-22 00:00:00 Completed [facility] Influenza Virus Vaccine Quad .5 mL IM 6+ MO 2020-05-22 00:00:00 Completed [facility] Influenza Virus Vaccine Quad .5 mL IM 6+ MO 2020-05-22 00:00:00 Completed [facility] Influenza Virus Vaccine Quad .5 mL IM 6+ MO 2020-05-22 00:00:00 Completed [facility] Influenza Virus Vaccine Quad .5 mL IM 6+ MO 2020-05-22 00:00:00 Completed [facility] Influenza Virus Vaccine Quad .5 mL IM 6+ MO 2020-05-22 00:00:00 Completed [facility] Influenza Virus Vaccine Quad .5 mL IM 6+ MO 2020-05-22 00:00:00 Completed [facility] Influenza Virus Vaccine Quad .5 mL IM 6+ MO 2020-05-22 00:00:00 Completed [facility] TDAP 2020-03-15 00:00:00 Completed [facility] TDAP 2020-03-15 00:00:00 Completed [facility] TDAP 2020-03-15 00:00:00 Completed [facility] TDAP 2020-03-15 00:00:00 Completed [facility] TDAP 2020-03-15 00:00:00 Completed [facility] TDAP 2020-03-15 00:00:00 Completed [facility] TDAP 2020-03-15 00:00:00 Completed [facility] TDAP 2020-03-15 00:00:00 Completed [facility] TDAP 2020-03-15 00:00:00 Completed [facility] TDAP 2020-03-15 00:00:00 Completed [facility] TDAP 2020-03-15 00:00:00 Completed [facility] TDAP 2020-03-15 00:00:00 Completed [facility] TDAP 2020-03-15 00:00:00 Completed [facility] TDAP 2020-03-15 00:00:00 Completed [facility] TDAP 2020-03-15 00:00:00 Completed [facility] TDAP 2020-03-15 00:00:00 Completed [facility] TDAP 2020-03-15 00:00:00 Completed [facility] TDAP 2020-03-15 00:00:00 Completed [facility] TDAP 2020-03-15 00:00:00 Completed [facility] TDAP 2020-03-15 00:00:00 Completed [facility] TDAP 2020-03-15 00:00:00 Completed [facility] TDAP 2020-03-15 00:00:00 Completed [facility] TDAP 2020-03-15 00:00:00 Completed [facility] TDAP 2020-03-15 00:00:00 Completed [facility] TDAP 2020-03-15 00:00:00 Completed [facility] TDAP 2020-03-15 00:00:00 Completed [facility] TDAP 2020-03-15 00:00:00 Completed [facility] TDAP 2020-03-15 00:00:00 Completed [facility] TDAP 2020-03-15 00:00:00 Completed [facility] TDAP 2020-03-15 00:00:00 Completed [facility] TDAP 2020-03-15 00:00:00 Completed [facility] TDAP 2020-03-15 00:00:00 Completed [facility] TDAP 2020-03-15 00:00:00 Completed [facility] TDAP 2020-03-15 00:00:00 Completed [facility] TDAP 2020-03-15 00:00:00 Completed [facility] TDAP 2020-03-15 00:00:00 Completed [facility] TDAP 2020-03-15 00:00:00 Completed [facility] TDAP 2020-03-15 00:00:00 Completed [facility] TDAP 2020-03-15 00:00:00 Completed [facility] TDAP 2020-03-15 00:00:00 Completed [facility] TDAP 2020-03-15 00:00:00 Completed [facility] TDAP 2020-03-15 00:00:00 Completed [facility] TDAP 2020-03-15 00:00:00 Completed [facility] TDAP 2020-03-15 00:00:00 Completed [facility] TDAP 2020-03-15 00:00:00 Completed [facility] TDAP 2020-03-15 00:00:00 Completed [facility] TDAP 2020-03-15 00:00:00 Completed [facility] TDAP 2020-03-15 00:00:00 Completed [facility] TDAP 2020-03-15 00:00:00 Completed [facility] TDAP 2020-03-15 00:00:00 Completed [facility] TDAP 2020-03-15 00:00:00 Completed [facility] TDAP 2020-03-15 00:00:00 Completed [facility] TDAP 2020-03-15 00:00:00 Completed [facility] TDAP 2020-03-15 00:00:00 Completed [facility] TDAP 2020-03-15 00:00:00 Completed [facility] TDAP 2020-03-15 00:00:00 Completed [facility] TDAP 2020-03-15 00:00:00 Completed [facility] TDAP 2020-03-15 00:00:00 Completed [facility] TDAP Unknown Completed [facility] Influenza Virus Vaccine Quad .5 mL IM 6+ MO (FLUZONE/FLULAVAL/F LUARIX) Unknown Completed [facility] SARS-COV-2 COVID-19 PFIZER VACCINE Unknown Completed [facility] SARS-COV-2 COVID-19 PFIZER VACCINE Unknown Completed [facility] TDAP Unknown Completed [facility] TDAP Unknown Completed [facility] Influenza Virus Vaccine Quad .5 mL IM 6+ MO (FLUZONE/FLULAVAL/F LUARIX) Unknown Completed [facility] SARS-COV-2 COVID-19 PFIZER VACCINE Unknown Completed [facility] SARS-COV-2 COVID-19 PFIZER VACCINE Unknown Completed [facility] TDAP Unknown Completed [facility] TDAP Unknown Completed [facility] Influenza Virus Vaccine Quad .5 mL IM 6+ MO (FLUZONE/FLULAVAL/F LUARIX) Unknown Completed [facility] SARS-COV-2 COVID-19 PFIZER VACCINE Unknown Completed [facility] SARS-COV-2 COVID-19 PFIZER VACCINE Unknown Completed [facility] TDAP Unknown Completed [facility] TDAP Unknown Completed [facility] Influenza Virus Vaccine Quad .5 mL IM 6+ MO (FLUZONE/FLULAVAL/F LUARIX) Unknown Completed [facility] SARS-COV-2 COVID-19 PFIZER VACCINE Unknown Completed [facility] SARS-COV-2 COVID-19 PFIZER VACCINE Unknown Completed [facility] TDAP Unknown Completed [facility] TDAP Unknown Completed [facility] Influenza Virus Vaccine Quad .5 mL IM 6+ MO (FLUZONE/FLULAVAL/F LUARIX) Unknown Completed [facility] SARS-COV-2 COVID-19 PFIZER VACCINE Unknown Completed [facility] SARS-COV-2 COVID-19 PFIZER VACCINE Unknown Completed [facility] TDAP Unknown Completed [facility] Influenza Virus Vaccine Quad IM, Preserv and ABX Free 6 MO-64 YRS (FLUCELVAX) Unknown Completed [facility] TDAP Unknown Completed [facility] Influenza Virus Vaccine Quad .5 mL IM 6+ MO (FLUZONE/FLULAVAL/F LUARIX) Unknown Completed [facility] SARS-COV-2 COVID-19 PFIZER VACCINE Unknown Completed [facility] SARS-COV-2 COVID-19 PFIZER VACCINE Unknown Completed [facility] TDAP Unknown Completed [facility] Influenza Virus Vaccine Quad IM, Preserv and ABX Free 6 MO-64 YRS (FLUCELVAX) Unknown Completed [facility] TDAP Unknown Completed [facility] Influenza Virus Vaccine Quad .5 mL IM 6+ MO (FLUZONE/FLULAVAL/F LUARIX) Unknown Completed [facility] SARS-COV-2 COVID-19 PFIZER VACCINE Unknown Completed [facility] SARS-COV-2 COVID-19 PFIZER VACCINE Unknown Completed [facility] TDAP Unknown Completed [facility] Influenza Virus Vaccine Quad IM, Preserv and ABX Free 6 MO-64 YRS (FLUCELVAX) Unknown Completed [facility] TDAP Unknown Completed [facility] Influenza Virus Vaccine Quad .5 mL IM 6+ MO (FLUZONE/FLULAVAL/F LUARIX) Unknown Completed [facility] SARS-COV-2 COVID-19 PFIZER VACCINE Unknown Completed [facility] SARS-COV-2 COVID-19 PFIZER VACCINE Unknown Completed [facility] TDAP Unknown Completed [facility] Influenza Virus Vaccine Quad IM, Preserv and ABX Free 6 MO-64 YRS (FLUCELVAX) Unknown Completed [facility] TDAP Unknown Completed [facility] Influenza Virus Vaccine Quad .5 mL IM 6+ MO (FLUZONE/FLULAVAL/F LUARIX) Unknown Completed [facility] SARS-COV-2 COVID-19 PFIZER VACCINE Unknown Completed [facility] SARS-COV-2 COVID-19 PFIZER VACCINE Unknown Completed [facility] TDAP Unknown Completed [facility] Influenza Virus Vaccine Quad IM, Preserv and ABX Free 6 MO-64 YRS (FLUCELVAX) Unknown Completed [facility] TDAP Unknown Completed [facility] Influenza Virus Vaccine Quad .5 mL IM 6+ MO (FLUZONE/FLULAVAL/F LUARIX) Unknown Completed [facility] SARS-COV-2 COVID-19 PFIZER VACCINE Unknown Completed [facility] SARS-COV-2 COVID-19 PFIZER VACCINE Unknown Completed [facility] TDAP Unknown Completed [facility] Influenza Virus Vaccine Quad IM, Preserv and ABX Free 6 MO-64 YRS (FLUCELVAX) Unknown Completed [facility] TDAP Unknown Completed [facility] Influenza Virus Vaccine Quad .5 mL IM 6+ MO (FLUZONE/FLULAVAL/F LUARIX) Unknown Completed [facility] SARS-COV-2 COVID-19 PFIZER VACCINE Unknown Completed [facility] SARS-COV-2 COVID-19 PFIZER VACCINE Unknown Completed [facility] TDAP Unknown Completed [facility] Influenza Virus Vaccine Quad IM, Preserv and ABX Free 6 MO-64 YRS (FLUCELVAX) Unknown Completed [facility] TDAP Unknown Completed [facility] Influenza Virus Vaccine Quad .5 mL IM 6+ MO (FLUZONE/FLULAVAL/F LUARIX) Unknown Completed [facility] SARS-COV-2 COVID-19 PFIZER VACCINE Unknown Completed [facility] SARS-COV-2 COVID-19 PFIZER VACCINE Unknown Completed [facility] TDAP Unknown Completed [facility] Influenza Virus Vaccine Quad IM, Preserv and ABX Free 6 MO-64 YRS (FLUCELVAX) Unknown Completed [facility] TDAP Unknown Completed [facility] Influenza Virus Vaccine Quad .5 mL IM 6+ MO (FLUZONE/FLULAVAL/F LUARIX) Unknown Completed [facility] SARS-COV-2 COVID-19 PFIZER VACCINE Unknown Completed [facility] SARS-COV-2 COVID-19 PFIZER VACCINE Unknown [facility] [facility] TD[facility] Unknown Completed [facility] Influenza Virus Vaccine Quad IM, Preserv and ABX Free 6 MO-64 YRS (FLUCELVAX) Unknown Completed [facility] TDAP Unknown Completed [facility] Influenza Virus Vaccine Quad .5 mL IM 6+ MO (FLUZONE/FLULAVAL/F LUARIX) Unknown Completed [facility] SARS-COV-2 COVID-19 PFIZER VACCINE Unknown Completed [facility] SARS-COV-2 COVID-19 PFIZER VACCINE Unknown Completed [facility] TDAP Unknown Completed [facility] Influenza Virus Vaccine Quad IM, Preserv and ABX Free 6 MO-64 YRS (FLUCELVAX) Unknown Completed [facility] TDAP Unknown Completed [facility] Influenza Virus Vaccine Quad .5 mL IM 6+ MO (FLUZONE/FLULAVAL/F LUARIX) Unknown Completed [facility] SARS-COV-2 COVID-19 PFIZER VACCINE Unknown Completed [facility] SARS-COV-2 COVID-19 PFIZER VACCINE Unknown Completed [facility] TDAP Unknown Completed [facility] Influenza Virus Vaccine Quad IM, Preserv and ABX Free 6 MO-64 YRS (FLUCELVAX) Unknown Completed [facility] TDAP Unknown Completed [facility] Influenza Virus Vaccine Quad .5 mL IM 6+ MO (FLUZONE/FLULAVAL/F LUARIX) Unknown Completed [facility] SARS-COV-2 COVID-19 PFIZER VACCINE Unknown Completed [facility] SARS-COV-2 COVID-19 PFIZER VACCINE Unknown Completed [facility] TDAP Unknown Completed [facility] Influenza Virus Vaccine Quad IM, Preserv and ABX Free 6 MO-64 YRS (FLUCELVAX) Unknown Completed [facility] TDAP Unknown Completed [facility] Influenza Virus Vaccine Quad .5 mL IM 6+ MO (FLUZONE/FLULAVAL/F LUARIX) Unknown Completed [facility] SARS-COV-2 COVID-19 PFIZER VACCINE Unknown Completed [facility] SARS-COV-2 COVID-19 PFIZER VACCINE Unknown Completed [facility] TDAP Unknown Completed [facility] Influenza Virus Vaccine Quad IM, Preserv and ABX Free 6 MO-64 YRS (FLUCELVAX) Unknown Completed [facility] TDAP Unknown Completed [facility] Influenza Virus Vaccine Quad .5 mL IM 6+ MO (FLUZONE/FLULAVAL/F LUARIX) Unknown Completed [facility] SARS-COV-2 COVID-19 PFIZER VACCINE Unknown Completed [facility] SARS-COV-2 COVID-19 PFIZER VACCINE Unknown Completed [facility] TDAP Unknown Completed [facility] Influenza Virus Vaccine Quad IM, Preserv and ABX Free 6 MO-64 YRS (FLUCELVAX) Unknown Completed [facility] TDAP Unknown Completed [facility] Influenza Virus Vaccine Quad .5 mL IM 6+ MO (FLUZONE/FLULAVAL/F LUARIX) Unknown Completed [facility] SARS-COV-2 COVID-19 PFIZER VACCINE Unknown Completed [facility] SARS-COV-2 COVID-19 PFIZER VACCINE Unknown Completed [facility] TDAP Unknown Completed [facility] Influenza Virus Vaccine Quad IM, Preserv and ABX Free 6 MO-64 YRS (FLUCELVAX) Unknown Completed [facility] TDAP Unknown Completed [facility] Influenza Virus Vaccine Quad .5 mL IM 6+ MO (FLUZONE/FLULAVAL/F LUARIX) Unknown Completed [facility] SARS-COV-2 COVID-19 PFIZER VACCINE Unknown Completed [facility] SARS-COV-2 COVID-19 PFIZER VACCINE Unknown Completed [facility] TDAP Unknown Completed [facility] Influenza Virus Vaccine Quad IM, Preserv and ABX Free 6 MO-64 YRS (FLUCELVAX) Unknown Completed [facility] TDAP Unknown Completed [facility] Influenza Virus Vaccine Quad .5 mL IM 6+ MO (FLUZONE/FLULAVAL/F LUARIX) Unknown Completed [facility] SARS-COV-2 COVID-19 PFIZER VACCINE Unknown Completed [facility] SARS-COV-2 COVID-19 PFIZER VACCINE Unknown Completed [facility] TDAP Unknown Completed [facility] Influenza Virus Vaccine Quad IM, Preserv and ABX Free 6 MO-64 YRS (FLUCELVAX) Unknown Completed [facility] TDAP Unknown Completed [facility] Influenza Virus Vaccine Quad .5 mL IM 6+ MO (FLUZONE/FLULAVAL/F LUARIX) Unknown Completed [facility] SARS-COV-2 COVID-19 PFIZER VACCINE Unknown Completed [facility] SARS-COV-2 COVID-19 PFIZER VACCINE Unknown Completed [facility] TDAP Unknown Completed [facility] Influenza Virus Vaccine Quad IM, Preserv and ABX Free 6 MO-64 YRS (FLUCELVAX) Unknown Completed [facility] TDAP Unknown Completed [facility] Influenza Virus Vaccine Quad .5 mL IM 6+ MO (FLUZONE/FLULAVAL/F LUARIX) Unknown Completed [facility] SARS-COV-2 COVID-19 PFIZER VACCINE Unknown Completed [facility] SARS-COV-2 COVID-19 PFIZER VACCINE Unknown Completed [facility] TDAP Unknown Completed [facility] Influenza Virus Vaccine Quad IM, Preserv and ABX Free 6 MO-64 YRS (FLUCELVAX) Unknown Completed [facility] TDAP Unknown Completed [facility] Influenza Virus Vaccine Quad .5 mL IM 6+ MO (FLUZONE/FLULAVAL/F LUARIX) Unknown Completed [facility] SARS-COV-2 COVID-19 PFIZER VACCINE Unknown Completed [facility] SARS-COV-2 COVID-19 PFIZER VACCINE Unknown Completed [facility] TDAP Unknown Completed [facility] Influenza Virus Vaccine Quad IM, Preserv and ABX Free 6 MO-64 YRS (FLUCELVAX) Unknown Completed [facility] TDAP Unknown Completed [facility] Influenza Virus Vaccine Quad .5 mL IM 6+ MO (FLUZONE/FLULAVAL/F LUARIX) Unknown Completed [facility] SARS-COV-2 COVID-19 PFIZER VACCINE Unknown Completed [facility] SARS-COV-2 COVID-19 PFIZER VACCINE Unknown Completed [facility] TDAP Unknown Completed [facility] Influenza Virus Vaccine Quad IM, Preserv and ABX Free 6 MO-64 YRS (FLUCELVAX) Unknown Completed [facility] TDAP Unknown Completed [facility] Influenza Virus Vaccine Quad .5 mL IM 6+ MO (FLUZONE/FLULAVAL/F LUARIX) Unknown Completed [facility] SARS-COV-2 COVID-19 PFIZER VACCINE Unknown Completed [facility] SARS-COV-2 COVID-19 PFIZER VACCINE Unknown Completed [facility] TDAP Unknown Completed [facility] Influenza Virus Vaccine Quad IM, Preserv and ABX Free 6 MO-64 YRS (FLUCELVAX) Unknown Completed [facility] TDAP Unknown Completed [facility] Influenza Virus Vaccine Quad .5 mL IM 6+ MO (FLUZONE/FLULAVAL/F LUARIX) Unknown Completed [facility] SARS-COV-2 COVID-19 PFIZER VACCINE Unknown Completed [facility] SARS-COV-2 COVID-19 PFIZER VACCINE Unknown Completed [facility] TDAP Unknown Completed [facility] Influenza Virus Vaccine Quad IM, Preserv and ABX Free 6 MO-64 YRS (FLUCELVAX) Unknown Completed [facility] Vital Signs Vital Name Observation Time Observation Value Comments S ource Systolic blood pressure 2023-10-11 16:51:00 150 mm[Hg] [facility] Diastolic blood pressure 2023-10-11 16:51:00 87 mm[Hg] [facility] Heart rate 2023-10-11 16:03:00 73 /[facility] temperature 2023-10-11 16:03:00 36.39 Steffanie [facility] Body height 2023-10-11 16:03:00 167.6 cm [facility] Body weight 2023-10-11 16:03:00 111.585 kg [facility] BMI 2023-10-11 16:03:00 39.71 kg/m2 [facility] Oxygen saturation in Arterial blood by Pulse oximetry 2023-10-11 16:03:00 100 /min [facility] Systolic blood pressure 2023-07-16 15:53:00 146 mm[Hg] [facility] Diastolic blood pressure 2023-07-16 15:53:00 94 mm[Hg] [facility] Heart rate 2023-07-16 15:39:00 71 /min [facility] Body temperature 2023-07-16 15:39:00 36.5 Steffanie [facility] Respiratory rate 2023-07-16 15:39:00 18 /min [facility] Body height 2023-07-16 15:39:00 165.1 cm Univ [facility] Body weight 2023-07-16 15:39:00 108.41 kg Univ [facility] BMI 2023-07-16 15:39:00 39.77 kg/m2 [facility] Systolic blood pressure 2023-06-22 17:23:00 120 mm[Hg] [facility] Diastolic blood pressure 2023-06-22 17:23:00 69 mm[Hg] [facility] Heart rate 2023-06-22 17:22:00 67 /min [facility] Body temperature 2023-06-22 17:22:00 36.67 Steffanie [facility] Respiratory rate 2023-06-22 17:22:00 17 /min [facility] Body height 2023-06-22 17:22:00 165.1 cm Univ [facility] Body weight 2023-06-22 17:22:00 107.775 kg [facility] BMI 2023-06-22 17:22:00 39.54 kg/m2 [facility] Systolic blood pressure 2023-06-01 15:19:00 130 mm[Hg] [facility] Diastolic blood pressure 2023-06-01 15:19:00 84 mm[Hg] [facility] Heart rate 2023-06-01 15:19:00 83 /min [facility] Body temperature 2023-06-01 15:19:00 36.78 Steffanie [facility] Respiratory rate 2023-06-01 15:19:00 18 /min [facility] Body height 2023-06-01 15:19:00 167.6 cm [facility] Body weight 2023-06-01 15:19:00 108.863 kg [facility] BMI 2023-06-01 15:19:00 38.74 kg/m2 [facility] Systolic blood pressure 2023-05-26 21:30:00 125 mm[Hg] [facility] Diastolic blood pressure 2023-05-26 21:30:00 75 mm[Hg] [facility] Heart rate 2023-05-26 21:30:00 73 /min [facility] Body temperature 2023-05-26 21:30:00 36.39 Steffanie [facility] Respiratory rate 2023-05-26 21:30:00 18 /min [facility] Oxygen saturation in Arterial blood by Pulse oximetry 2023-05-26 21:30:00 99 /min [facility] Body height 2023-05-25 11:15:00 167.6 cm [facility] Body weight 2023-05-25 11:15:00 116.484 kg [facility] BMI 2023-05-25 11:15:00 41.45 kg/m2 [facility] Heart rate 2023-05-25 15:00:00 67 /min [facility] Oxygen saturation in Arterial blood by Pulse oximetry 2023-05-25 15:00:00 100 /min [facility] Systolic blood pressure 2023-05-25 13:00:00 134 mm[Hg] [facility] Diastolic blood pressure 2023-05-25 13:00:00 82 mm[Hg] [facility] Body temperature 2023-05-25 11:15:00 36.78 Steffanie [facility] Respiratory rate 2023-05-25 11:15:00 16 /min [facility] Body height 2023-05-25 11:15:00 167.6 cm [facility] Body weight 2023-05-25 11:15:00 116.484 kg Univ [facility] BMI 2023-05-25 11:15:00 41.45 kg/m2 [facility] Respiratory rate 2023-05-25 14:44:00 15 /min [facility] Systolic blood pressure 2023-05-21 15:16:00 122 mm[Hg] [facility] Diastolic blood pressure 2023-05-21 15:16:00 77 mm[Hg] [facility] Heart rate 2023-05-21 15:16:00 74 /min [facility] Body temperature 2023-05-21 15:16:00 36.61 Steffanie [facility] Body height 2023-05-21 15:16:00 167.6 cm Univ [facility] Body weight 2023-05-21 15:16:00 117.663 kg Univ [facility] BMI 2023-05-21 15:16:00 41.87 kg/m2 [facility] Systolic blood pressure 2023-05-19 13:56:00 124 mm[Hg] [facility] Diastolic blood pressure 2023-05-19 13:56:00 81 mm[Hg] [facility] Heart rate 2023-05-19 13:56:00 116 /min [facility] Body temperature 2023-05-19 13:56:00 36.61 Steffanie [facility] Respiratory rate 2023-05-19 13:56:00 16 /min [facility] Body height 2023-05-19 13:56:00 167.6 cm Univ [facility] Body weight 2023-05-19 13:56:00 116.574 kg Univ [facility] BMI 2023-05-19 13:56:00 41.48 kg/m2 Univ [facility] Systolic blood pressure 2023-05-17 16:04:00 127 mm[Hg] [facility] Diastolic blood pressure 2023-05-17 16:04:00 81 mm[Hg] [facility] Heart rate 2023-05-17 16:04:00 80 /min [facility] Body temperature 2023-05-17 16:04:00 36.78 Steffanie [facility] Body height 2023-05-17 16:04:00 167.6 cm Univ [facility] Body weight 2023-05-17 16:04:00 117.028 kg Univ [facility] BMI 2023-05-17 16:04:00 41.64 kg/m2 [facility] Systolic blood pressure 2023-05-12 14:14:00 115 mm[Hg] [facility] Diastolic blood pressure 2023-05-12 14:14:00 80 mm[Hg] [facility] Heart rate 2023-05-12 14:14:00 123 /min [facility] Body temperature 2023-05-12 14:14:00 36.28 Steffanie [facility] Respiratory rate 2023-05-12 14:14:00 16 /min [facility] Body height 2023-05-12 14:14:00 167.6 cm [facility] Body weight 2023-05-12 14:14:00 116.121 kg [facility] BMI 2023-05-12 14:14:00 41.32 kg/m2 [facility] Systolic blood pressure 2023-05-05 13:42:00 119 mm[Hg] [facility] Diastolic blood pressure 2023-05-05 13:42:00 80 mm[Hg] [facility] Heart rate 2023-05-05 13:42:00 88 /min [facility] Body temperature 2023-05-05 13:42:00 36.83 Steffanie [facility] Respiratory rate 2023-05-05 13:42:00 16 /min [facility] Body height 2023-05-05 13:42:00 167.6 cm Univ [facility] Body weight 2023-05-05 13:42:00 115.577 kg Univ [facility] BMI 2023-05-05 13:42:00 41.13 kg/m2 Univ [facility] Systolic blood pressure 2023-04-28 15:09:00 109 mm[Hg] [place] [facility] Diastolic blood pressure 2023-04-28 15:09:00 73 mm[Hg] [facility] Heart rate 2023-04-28 15:09:00 85 /min [facility] Respiratory rate 2023-04-28 15:09:00 18 /min [facility] Body height 2023-04-28 15:09:00 167.6 cm [facility] Body weight 2023-04-28 15:09:00 116.574 kg [facility] BMI 2023-04-28 15:09:00 41.48 kg/m2 [facility] Systolic blood pressure 2023-04-21 15:08:00 109 mm[Hg] [facility] Diastolic blood pressure 2023-04-21 15:08:00 71 mm[Hg] [facility] Heart rate 2023-04-21 15:08:00 91 /min [facility] Body temperature 2023-04-21 15:08:00 36.72 Steffanie [facility] Respiratory rate 2023-04-21 15:08:00 18 /min [facility] Body height 2023-04-21 15:08:00 167.6 cm Univ [facility] Body weight 2023-04-21 15:08:00 114.941 kg [facility] BMI 2023-04-21 15:08:00 40.90 kg/m2 Univ [facility] Systolic blood pressure 2023-04-19 18:57:00 116 mm[Hg] [facility] Diastolic blood pressure 2023-04-19 18:57:00 72 mm[Hg] [facility] Heart rate 2023-04-19 18:57:00 88 /min [facility] Body temperature 2023-04-19 18:57:00 36.83 Steffanie [facility] Respiratory rate 2023-04-19 18:57:00 16 /min [facility] Body height 2023-04-19 18:57:00 167.6 cm [facility] Body weight 2023-04-19 18:57:00 114.17 kg Univ [facility] BMI 2023-04-19 18:57:00 40.63 kg/m2 Univ [facility] Oxygen saturation in Arterial blood by Pulse oximetry 2023-04-19 18:57:00 97 /min [facility] Diastolic blood pressure 2023-04-07 15:33:00 73 mm[Hg] [facility] Heart rate 2023-04-07 15:33:00 79 /min [facility] Body temperature 2023-04-07 15:33:00 36.78 Steffanie [facility] Respiratory rate 2023-04-07 15:33:00 17 /min [facility] Body height 2023-04-07 15:33:00 167.6 cm Univ [facility] Body weight 2023-04-07 15:33:00 116.121 kg Univ [facility] BMI 2023-04-07 15:33:00 41.32 kg/m2 Univ [facility] Systolic blood pressure 2023-04-07 15:33:00 116 mm[Hg] [facility] Systolic blood pressure 2023-03-24 19:56:00 117 mm[Hg] [facility] Diastolic blood pressure 2023-03-24 19:56:00 74 mm[Hg] [facility] Heart rate 2023-03-24 19:56:00 79 /min [facility] Body temperature 2023-03-24 19:56:00 36.67 Steffanie [facility] Respiratory rate 2023-03-24 19:56:00 18 /min [facility] Body height 2023-03-24 19:56:00 167.6 cm Univ [facility] Body weight 2023-03-24 19:56:00 116.257 kg Univ [facility] BMI 2023-03-24 19:56:00 41.37 kg/m2 Univ [facility] Systolic blood pressure 2023-03-10 21:00:00 114 mm[Hg] [facility] Diastolic blood pressure 2023-03-10 21:00:00 73 mm[Hg] [facility] Heart rate 2023-03-10 21:00:00 77 /min [facility] Body temperature 2023-03-10 21:00:00 36.94 Steffanie [facility] Respiratory rate 2023-03-10 21:00:00 16 /min [facility] Body height 2023-03-10 21:00:00 167.6 cm Univ [facility] Body weight 2023-03-10 21:00:00 115.032 kg [facility] BMI 2023-03-10 21:00:00 40.93 kg/m2 [facility] Oxygen saturation in Arterial blood by Pulse oximetry 2023-03-10 21:00:00 98 /min [facility] Systolic blood pressure 2023-02-17 17:55:00 126 mm[Hg] [facility] Diastolic blood pressure 2023-02-17 17:55:00 79 mm[Hg] [facility] Heart rate 2023-02-17 17:55:00 75 /min [facility] Body temperature 2023-02-17 17:55:00 37 Steffanie [facility] Respiratory rate 2023-02-17 17:55:00 16 /min [facility] Body height 2023-02-17 17:55:00 167.6 cm Univ [facility] Body weight 2023-02-17 17:55:00 111.993 kg [facility] BMI 2023-02-17 17:55:00 39.85 kg/m2 Univ [facility] Oxygen saturation in Arterial blood by Pulse oximetry 2023-02-17 17:55:00 98 /min [facility] Systolic blood pressure 2023-01-20 21:04:00 116 mm[Hg] [facility] Diastolic blood pressure 2023-01-20 21:04:00 72 mm[Hg] [facility] Heart rate 2023-01-20 21:04:00 79 /min [facility] Body temperature 2023-01-20 21:04:00 37 Steffanie [facility] Respiratory rate 2023-01-20 21:04:00 16 /min [facility] Body height 2023-01-20 21:04:00 167.6 cm [facility] Body weight 2023-01-20 21:04:00 109.907 kg Univ [facility] BMI 2023-01-20 21:04:00 39.11 kg/m2 [facility] Oxygen saturation in Arterial blood by Pulse oximetry 2023-01-20 21:04:00 98 /min [facility] Systolic blood pressure 2022-12-23 15:06:00 118 mm[Hg] [facility] Diastolic blood pressure 2022-12-23 15:06:00 76 mm[Hg] [facility] Heart rate 2022-12-23 15:06:00 77 /min [facility] Respiratory rate 2022-12-23 15:06:00 18 /min [facility] Body height 2022-12-23 15:06:00 167.6 cm [facility] Body weight 2022-12-23 15:06:00 105.688 kg Univ [facility] BMI 2022-12-23 15:06:00 37.61 kg/m2 Univ [facility] Systolic blood pressure 2022-11-25 16:19:00 116 mm[Hg] [facility] Diastolic blood pressure 2022-11-25 16:19:00 77 mm[Hg] [facility] Heart rate 2022-11-25 16:19:00 72 /min [facility] Respiratory rate 2022-11-25 16:19:00 18 /min [facility] Body height 2022-11-25 16:19:00 167.6 cm Univ [facility] Body weight 2022-11-25 16:19:00 103.874 kg Univ [facility] BMI 2022-11-25 16:19:00 36.96 kg/m2 Univ [facility] Systolic blood pressure 2022-10-27 19:07:00 121 mm[Hg] [facility] Diastolic blood pressure 2022-10-27 19:07:00 81 mm[Hg] [facility] Heart rate 2022-10-27 19:07:00 71 /min [facility] Respiratory rate 2022-10-27 19:07:00 18 /min [facility] Body height 2022-10-27 19:07:00 167.6 cm Univ [facility] Body weight 2022-10-27 19:07:00 103.42 kg Univ [facility] BMI 2022-10-27 19:07:00 36.80 kg/m2 Univ [facility] Systolic blood pressure 2020-07-02 17:17:00 132 mm[Hg] [facility] Diastolic blood pressure 2020-07-02 17:17:00 88 mm[Hg] [facility] Heart rate 2020-07-02 17:17:00 57 /min [facility] Body temperature 2020-07-02 17:17:00 36.83 Steffanie [facility] Respiratory rate 2020-07-02 17:17:00 18 /min [facility] Body height 2020-07-02 17:17:00 167.6 cm Univ [facility] Body weight 2020-07-02 17:17:00 111.585 kg [facility] BMI 2020-07-02 17:17:00 39.71 kg/m2 [facility] Systolic blood pressure 2020-07-02 17:17:00 132 mm[Hg] [facility] Diastolic blood pressure 2020-07-02 17:17:00 88 mm[Hg] [facility] Heart rate 2020-07-02 17:17:00 57 /min [facility] Body temperature 2020-07-02 17:17:00 36.83 Steffanie [facility] Respiratory rate 2020-07-02 17:17:00 18 /min [facility] Body height 2020-07-02 17:17:00 167.6 cm Univ [facility] Body weight 2020-07-02 17:17:00 111.585 kg Univ [facility] BMI 2020-07-02 17:17:00 39.71 kg/m2 [facility] Systolic blood pressure 2020-06-11 20:35:00 108 mm[Hg] [facility] Diastolic blood pressure 2020-06-11 20:35:00 70 mm[Hg] [facility] Heart rate 2020-06-11 20:35:00 67 /min [facility] Body temperature 2020-06-11 20:35:00 36.72 Steffanie [facility] Respiratory rate 2020-06-11 20:35:00 18 /min [facility] Body height 2020-06-11 20:35:00 167.6 cm Univ [facility] Body weight 2020-06-11 20:35:00 111.676 kg Univ [facility] BMI 2020-06-11 20:35:00 39.74 kg/m2 [facility] Systolic blood pressure 2020-06-11 20:35:00 108 mm[Hg] [facility] Diastolic blood pressure 2020-06-11 20:35:00 70 mm[Hg] [facility] Heart rate 2020-06-11 20:35:00 67 /min [facility] Body temperature 2020-06-11 20:35:00 36.72 Steffanie [facility] Respiratory rate 2020-06-11 20:35:00 18 /min [facility] Body height 2020-06-11 20:35:00 167.6 cm Univ [facility] Body weight 2020-06-11 20:35:00 111.676 kg Univ [facility] BMI 2020-06-11 20:35:00 39.74 kg/m2 Univ [facility] Systolic blood pressure 2020-06-04 22:30:00 121 mm[Hg] [facility] Diastolic blood pressure 2020-06-04 22:30:00 67 mm[Hg] [facility] Heart rate 2020-06-04 22:30:00 68 /min [facility] Body temperature 2020-06-04 22:30:00 37 Steffanie [facility] Respiratory rate 2020-06-04 22:30:00 18 /min [facility] Oxygen saturation in Arterial blood by Pulse oximetry 2020-06-04 22:30:00 97 /min [facility] Body height 2020-06-03 11:00:00 167.6 cm Univ [facility] Body weight 2020-06-03 11:00:00 117.391 kg Univ [facility] BMI 2020-06-03 11:00:00 41.79 kg/m2 Univ [facility] Systolic blood pressure 2020-06-04 22:30:00 121 mm[Hg] [facility] Diastolic blood pressure 2020-06-04 22:30:00 67 mm[Hg] [facility] Heart rate 2020-06-04 22:30:00 68 /min [facility] Body temperature 2020-06-04 22:30:00 37 Steffanie [facility] Respiratory rate 2020-06-04 22:30:00 18 /min [facility] Oxygen saturation in Arterial blood by Pulse oximetry 2020-06-04 22:30:00 97 /min [facility] Body height 2020-06-03 11:00:00 167.6 cm Univ [facility] Body weight 2020-06-03 11:00:00 117.391 kg Univ [facility] BMI 2020-06-03 11:00:00 41.79 kg/m2 [facility] Systolic blood pressure 2020-05-28 21:25:00 113 mm[Hg] [facility] Diastolic blood pressure 2020-05-28 21:25:00 75 mm[Hg] [facility] Heart rate 2020-05-28 21:25:00 73 /min [facility] Body temperature 2020-05-28 21:25:00 36.89 Steffanie [facility] Respiratory rate 2020-05-28 21:25:00 18 /min [facility] Body height 2020-05-28 21:25:00 167.6 cm Univ [facility] Body weight 2020-05-28 21:25:00 118.389 kg Univ [facility] BMI 2020-05-28 21:25:00 42.13 kg/m2 Univ [facility] Systolic blood pressure 2020-05-28 21:25:00 113 mm[Hg] [facility] Diastolic blood pressure 2020-05-28 21:25:00 75 mm[Hg] [facility] Heart rate 2020-05-28 21:25:00 73 /min [facility] Body temperature 2020-05-28 21:25:00 36.89 Steffanie [facility] Respiratory rate 2020-05-28 21:25:00 18 /min [facility] Body height 2020-05-28 21:25:00 167.6 cm Univ [facility] Body weight 2020-05-28 21:25:00 118.389 kg [facility] BMI 2020-05-28 21:25:00 42.13 kg/m2 Univ [facility] Systolic blood pressure 2020-05-22 21:51:00 126 mm[Hg] [facility] Diastolic blood pressure 2020-05-22 21:51:00 85 mm[Hg] [facility] Heart rate 2020-05-22 21:51:00 77 /min [facility] Body temperature 2020-05-22 21:51:00 36.89 Steffanie [facility] Respiratory rate 2020-05-22 21:51:00 18 /min [facility] Body height 2020-05-22 21:51:00 167.6 cm [facility] Body weight 2020-05-22 21:51:00 117.935 kg [facility] BMI 2020-05-22 21:51:00 41.97 kg/m2 [facility] Systolic blood pressure 2020-05-06 21:31:00 127 mm[Hg] [facility] Diastolic blood pressure 2020-05-06 21:31:00 74 mm[Hg] [facility] Heart rate 2020-05-06 21:31:00 83 /min [facility] Body temperature 2020-05-06 21:31:00 37 Steffanie [facility] Respiratory rate 2020-05-06 21:31:00 18 /min [facility] Body height 2020-05-06 21:31:00 167.6 cm [facility] Body weight 2020-05-06 21:31:00 115.214 kg Univ [facility] BMI 2020-05-06 21:31:00 41.00 kg/m2 [facility] Systolic blood pressure 2020-04-18 16:08:00 124 mm[Hg] [facility] Diastolic blood pressure 2020-04-18 16:08:00 73 mm[Hg] [facility] Heart rate 2020-04-18 16:08:00 82 /min [facility] Body temperature 2020-04-18 16:08:00 36.83 Steffanie [facility] Respiratory rate 2020-04-18 16:08:00 18 /min [facility] Body height 2020-04-18 16:08:00 167.6 cm [facility] Body weight 2020-04-18 16:08:00 114.034 kg [facility] BMI 2020-04-18 16:08:00 40.58 kg/m2 [facility] Systolic blood pressure 2020-04-05 19:30:00 113 mm[Hg] [facility] Diastolic blood pressure 2020-04-05 19:30:00 72 mm[Hg] [facility] Heart rate 2020-04-05 19:30:00 80 /min [facility] Body temperature 2020-04-05 19:30:00 36.78 Steffanie [facility] Respiratory rate 2020-04-05 19:30:00 18 /min [facility] Body height 2020-04-05 19:30:00 167.6 cm [facility] Body weight 2020-04-05 19:30:00 112.583 kg [facility] BMI 2020-04-05 19:30:00 40.06 kg/m2 [facility] Body weight 2020-03-15 14:13:00 109.77 kg Univ [facility] BMI 2020-03-15 14:13:00 39.06 kg/m2 [facility] Systolic blood pressure 2020-03-15 14:13:00 117 mm[Hg] [facility] Diastolic blood pressure 2020-03-15 14:13:00 69 mm[Hg] [facility] Heart rate 2020-03-15 14:13:00 78 /min [facility] Body temperature 2020-03-15 14:13:00 36.89 Steffanie [facility] Respiratory rate 2020-03-15 14:13:00 18 /min [facility] Body height 2020-03-15 14:13:00 167.6 cm [facility] Procedures Procedure Date / Time Performed Performing Clinician Source PATIENT FINANCIAL RESPONSIBILITY - ALL FORMS 2023-10-11 06:01:00 Doctor Unassigned, [place] [facility] GLUCOSE FASTING 2023-05-26 11:17:00 Adum, Dolores [facility]onson [facility] GLU[facility]SE FASTING 2023-05-26 11:17:00 Adum, Dolores Bronson [facility] CBC WITH DIFF 2023-05-26 08:11:00 Adum, Dolores Bronson [facility] CBC WITH DIFF 2023-05-26 08:11:00 Adum, Dolores Bronson [facility] CENTRAL NEURAXIAL BLOCK 2023-05-25 13:15:00 Bill Cox [facility] SECTION 2023-05-25 12:49:00 Adum, Dolores Bronson [facility] SALPINGECTOMY 2023-05-25 12:49:00 Adum, Dolores [facility] SECTION 2023-05-25 12:49:00 Adum, Dolores Bronson [facility] SALPINGECTOMY 2023-05-25 12:49:00 Adum, Dolores Bronson [facility] POCT GLUCOSE (AUTOMATED) 2023-05-25 11:25:00 Adum, Kerri Bronson [facility] POCT GLUCOSE (AUTOMATED) 2023-05-25 11:25:00 Adum, Kerri Bronson [facility] NON-STRESS TEST 2023-05-21 20:07:28 Adum, Dolores Bronson [facility] DISABILITY/FMLA 2023-05-21 05:01:00 Doctor Unass igned, [place] [facility] NON-STRESS TEST 2023-05-19 19:31:05 Adum, Dolores Bronson [facility] POCT URINALYSIS W/O SPECIFIC GRAVITY 2023-05-19 00:00:00 Adum, Dolores Aiyana [facility] NON-STRESS TEST 2023-05-17 17:08:35 Kindra Griggs [facility] SECOND AND THIRD TRIMESTER ULTRASOUND 2023-05-17 14:46:00 Adum, Dolores Aiyana [facility] NON-STRESS TEST 2023-05-12 15:37:44 Adum, Dolores Aiyana [facility] FLU VACC (), 6 MO-64 YRS, .5ML, IM, QUAD (FLUCELVAX) 2023-05-12 14:29:00 Adum, Dolores Aiyana [facility] DSU PRE-OP 2023-05-12 05:01:00 Doctor Unass igned, [place] [facility] DSU PRE-OP 2023-05-12 05:01:00 Doctor Unass igned, [place] [facility] POCT URINALYSIS W/O SPECIFIC GRAVITY 2023-05-12 00:00:00 Adum, Dolores Aiyana [facility] NON-STRESS TEST 2023-05-05 14:15:29 Adum, Dolores Aiyana [facility] POCT URINALYSIS W/O SPECIFIC GRAVITY 2023-05-05 00:00:00 Adum, Dolores Aiyana [facility] NON-STRESS TEST 2023-04-28 16:21:53 Adum, Dolores Aiyana [facility] POCT URINALYSIS W/O SPECIFIC GRAVITY 2023-04-28 00:00:00 Adum, Dolores Aiyana [facility] NON-STRESS TEST 2023-04-21 16:10:10 Adum, Dolores Aiyana [facility] POCT URINALYSIS W/O SPECIFIC GRAVITY 2023-04-21 00:00:00 Adum, Dolores Aiyana [facility] MEDICAL RELEASE/CLEARANCE FORMS 2023-04-07 05:01:00 Doctor Unassigned, [place] [facility] POCT URINALYSIS W/O SPECIFIC GRAVITY 2023-04-07 00:00:00 Adum, Dolores Aiyana [facility] TDAP VACCINE, >11 YRS, IM 2023-03-24 20:07:43 Adum, Forrest Bronson [facility] POCT URINALYSIS W/O SPECIFIC GRAVITY 2023-03-24 00:00:00 Adum, Dolores Bronson [facility] STERILIZATION CONSENT FORM 2023-03-10 05:01:00 Doctor Unassigned, [place] [facility] POCT URINALYSIS W/O SPECIFIC GRAVITY 2023-03-10 00:00:00 Adum, Dolores Bronson [facility] POCT URINALYSIS W/O SPECIFIC GRAVITY 2023-02-17 00:00:00 Adum, Dolores Bronson [facility] POCT URINALYSIS W/O SPECIFIC GRAVITY 2023-01-20 00:00:00 Adum, Dolores Bronson [facility] POCT URINALYSIS W/O SPECIFIC GRAVITY 2022-12-23 00:00:00 Adum, Dolores Bronson [facility] SCANNED LAB RESULTS 2022-11-30 05:01:00 Doctor Marita thomason, [place] [facility] POCT URINALYSIS W/O SPECIFIC GRAVITY 2022-11-25 00:00:00 Adum, Dolores Bronson [facility] US OB TRANSVAGINAL 2022-10-27 22:43:38 Adum, Dolores Bronson [facility] GC & CHLAMYDIA AMPLIFIED ASSAY 2022-10-27 20:07:00 Adum, Dolores Bronson [facility] HIGH RISK HPV-THIN PREP 2022-10-27 20:07:00 Adum, Marilee Bronson [facility] TRICHOMONAS AMPLIFIED ASSAY 2022-10-27 20:07:00 Adum, Dolores Bronson [facility] PAP SMEAR-LIQUID BASED-CP 2022-10-27 20:07:00 Adum, Forrest Bronson [facility] 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 CLINIC ULTRASOUND 2022-10-27 05:01:00 Doc tor Unassigned, [place] [facility] POCT TEST 2022-10-27 00:00:00 Adum, Dolores Bronson [facility] POCT URINALYSIS W/O SPECIFIC GRAVITY 2022-10-27 00:00:00 Adum, Dolores Bronson [facility] CONSENT FOR ORAL CONTRACEPTIVES 2020-07-02 06:01:00 Doctor Unassigned, [place] [facility] POCT TEST 2020-07-02 00:00:00 Jean Ricci [facility] DME/SUPPLY JUSTIFICATION 2020-06-14 06:01:00 Doc tor Unassigned, [place] [facility] CBC WITH DIFF 2020-06-04 09:08:00 Kindra [facility] VENOUS CORD GAS 2020-06-03 13:42:00 Anson Kindra [facility] SECTION 2020-06-03 12:43:00 Kindra Griggs [facility] CBC WITH DIFF 2020-06-03 11:48:00 Anson Kindrakrysten Coats [facility] HEPATITIS B SURFACE ANTIGEN 2020-06-03 11:48:[address] [facility] ADC OR RUPINDER ONLY - RPR 2020-06-03 11:48:[address] [facility] HIV 1/2 AG-AB WITH REFLEX 2020-06-03 11:48:[address] [facility] HB ABO GROUPING 2020-06-03 11:44:00 Anson Kindra [facility] RHO (D) IMMUNE GLOBULIN 2020-06-03 11:44:00 Kindra Griggs [facility] HOSPITAL ADMISSION 2020-06-03 05:01:00 Doctor Un assigned, [place] [facility] CONSENT/REFUSAL FOR DIAGNOSIS AND TREATMENT 2020-05-31 16:00:16 Doctor Unassigned, [place] [facility] ASSIGNMENT OF BENEFITS 2020-05-31 15:59:58 Docto r Unassigned, [place] [facility] POCT URINALYSIS W/O SPECIFIC GRAVITY 2020-05-28 00:00:00 Kindra Griggs [facility] >14 WEEKS US LIMITED 2020-05-22 22:26:46 Kindra Griggs [facility] FLU VACC ([id number]), 6+ MONTHS, IM, QUAD 2020-05-22 21:52:59 Kindra Griggs [facility] DSU PRE-OP 2020-05-22 05:01:00 Doctor Unass igned, [place] [facility] POCT URINALYSIS W/O SPECIFIC GRAVITY 2020-05-06 00:00:00 Kindra Griggs [facility] POCT URINALYSIS W/O SPECIFIC GRAVITY 2020-04-18 16:10:00 Eugene Ricci [facility] POCT URINALYSIS W/O SPECIFIC GRAVITY 2020-04-05 00:00:00 Kindra Griggs [facility] GLUCOSE 1 HOUR POST PRANDIAL 2020-03-15 16:38:00 Kindra Griggs [facility] CBC WITH DIFF 2020-03-15 16:38:00 Kindra Griggs [facility] TDAP VACCINE, >11 YRS, IM 2020-03-15 14:22:25 Eugene Ricci [facility] POCT URINALYSIS W/O SPECIFIC GRAVITY 2020-03-15 00:00:00 Eugene Ricci [facility] AGREEMENTS AUTHORIZATIONS AND IRREVOCABLE ASSIGNMENTS (FORM 2000) 2020-01-25 05:01:00 Doctor Unassigned, [place] [facility] Encounters Start Date/Time End Date/Time Encounter Type Admission Type Attending Clinicians Care Facility Care Department Encounter ID Source 2024-07-25 10:30:00 2024-07-25 10:30:00 Outpatient R DOLORES ALCAZAR [facility] [id number] [facility] 2023-12-07 10:40:00 2023-12-07 10:40:00 Outpatient R OBI-ANTELMO , BLANCA OBI-ANTELMO , BL[place] [facility] [id number] [facility] 2023-11-29 09:40:00 2023-11-29 09:40:00 Outpatient R OBI-ANTELMO , BLANCA OBI-ANTELMO , [place] [facility] [id number] [facility] 2023-11-18 11:00:00 2023-11-18 11:00:00 Outpatient R OBI-ANTELMO , BLANCA OBI-ANTELMO , [place] [facility] [id number] [facility] 2023-11-11 09:00:00 2023-11-11 09:00:00 Outpatient R OBI-ANTELMO , BLANCA OBI-ANTELMO , [facility] [id number] [facility] 2023-10-28 00:00:00 2023-10-28 00:00:00 Patient Secure Msg Doctor Unassigned, [place] [facility] [id number] [facility] 2023-10-11 11:15:00 2023-10-11 11:30:00 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 [id number] [facility] 2023-10-11 00:00:00 2023-10-11 00:00:00 Orders Only Doctor Unassigned, [place] [facility] [id number] [facility] 2023-07-29 00:00:00 2023-07-29 00:00:00 Telephone Adum, Dolores [facility] [id number] [facility] 2023-07-22 09:20:00 2023-07-22 09:20:00 Outpatient R OBI-ANTELMO , BLANCA OBI-ANTELMO , [place] [facility] [id number] [facility] 2023-07-16 10:15:00 2023-07-16 10:30:00 Model And [employer] Maker Plaster Visit 2, Adc Lab Adum, [facility] [facility] 1.2.840.114 350.1.13.10 4.2.7.2.686 [id number] [facility] 2023-07-16 10:15:00 2023-07-16 10:27:15 Outpatient R ADUM, [facility] [id number] [facility] 2023-07-16 09:45:00 2023-07-16 10:13:18 Routine Visit Adum, [facility] 1.2.840.114 350.1.13.10 4.2.7.2.686 [id number] [facility] 2023-06-22 11:15:00 2023-06-22 11:50:05 Outpatient R ADUM, [facility] [id number] [facility] 2023-06-22 11:15:00 2023-06-22 11:50:05 Routine Visit Adum, [facility] 1.2.840.114 350.1.13.10 4.2.7.2.686 [id number] 134 [id number] [facility] 2023-06-01 10:00:00 2023-06-01 10:19:11 Outpatient R ADUM, [facility] [id number] [facility] 2023-06-01 10:00:00 2023-06-01 10:19:11 Nurse Visit Nurse, [facility] Adum, Dolores Bronson [facility] 1.2.840.114 350.1.13.10 4.2.7.2.686 [id number] 134 [id number] [facility] 2023-05-25 05:57:00 2023-05-26 18:30:00 Inpatient P ADUM[facility]OLORES [facility] [id number] [facility] 2023-05-25 05:57:00 2023-05-26 18:30:00 Hospital Encounter AdumDolores [facility] 1.2.840.114 350.1.13.10 4.2.7.2.686 [id number] [facility] 2023-05-26 00:00:00 2023-05-26 00:00:00 Telephone Adum, Dolores Bronson [facility] 1.2.840.114 350.1.13.10 4.2.7.2.686 [id number] 134 [id number] [facility] 2023-05-26 00:00:00 2023-05-26 00:00:00 Telephone AdumDolores [facility] 1.2.840.114 350.1.13.10 4.2.7.2.686 [id number] 134 [id number] [facility] 2023-05-25 08:00:00 2023-05-25 10:14:00 Surgery Adum, [facility] 1.2.840.114 350.1.13.10 4.2.7.2.686 [id number] [id number] [facility] 2023-05-25 08:05:00 2023-05-25 09:50:00 Anesthesia Event Odette Rene Michael Wayne [facility] 1.2.840.114 350.1.13.10 4.2.7.2.686 [id number] [id number] [facility] 2023-05-24 10:45:00 2023-05-24 11:00:00 Model And Mold Maker Plaster Visit Pob, [facility] Lab Main Adum, [facility] BUILDING 1.2840.114 350.1.13.10 4.2.7.2.686 [id number] [facility] 2023-05-24 10:45:00 2023-05-24 10:45:00 Outpatient R ADUM, [facility] [id number] [facility] 2023-05-21 10:00:00 2023-05-21 10:53:47 Outpatient R ADUM, [facility] [id number] [facility] 2023-05-21 10:00:00 2023-05-21 10:53:47 [facility], [facility] BUILDING 1.20.114 350.1.13.10 4.2.7.2.686 [id number] 134 [id number] [facility] 2023-05-21 00:00:00 2023-05-21 00:00:00 Orders Only Doctor Unassigned, [place] [facility] 1.2840.114 350.1.13.10 4.2.7.2.686 [id number] [facility] 2023-05-19 09:00:00 2023-05-19 11:06:35 Outpatient R ADUM, [facility] [id number] [facility] 2023-05-19 09:00:00 2023-05-19 11:06:35 Routine Visit 1, [facility] Room Adum, [facility] 1.20.114 350.1.13.10 4.2.7.2.686 [id number] 134 [id number] [facility] 2023-05-19 10:00:00 2023-05-19 10:00:00 Outpatient R [facility] [id number] [facility] 2023-05-18 10:00:00 2023-05-18 10:00:00 Outpatient R [facility] [id number] [facility] 2023-05-17 09:00:00 2023-05-17 11:39:25 Routine Visit Room, [facility] 1..840.114 350.1.13.10 4.2.7.2.686 [id number] 134 [id number] [facility] 2023-05-17 09:30:00 2023-05-17 10:32:10 Outpatient P GI VANCE SHANNON [facility] [id number] [facility] 2023-05-17 09:30:00 2023-05-17 10:32:10 Model 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 Maker 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 Visit Ultrasound, Gi Grimaldo [facility] 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 [facility] 1..840.114 350.1.13.10 4.2.7.2.686 [id number] [facility] 2023-05-14 08:00:00 2023-05-14 08:28:26 Outpatient R DOLORES ALCAZAR [facility] [id number] [facility] 2023-05-14 08:00:00 2023-05-14 08:15:00 Model And Mold Maker Plaster Visit Lab, Dolores Brit[facility] 1.2.840.114 350.1.13.10 4.2.7.2.686 [id number] 353 [id number] [facility] 2023-05-12 09:00:00 2023-05-12 10:08:52 Outpatient R DOLORES ALCAZAR [facility] [id number] [facility] 2023-05-12 09:00:00 2023-05-12 10:08:52 Routine Visit 1, [facility] Room Ad [facility] 1.2.840.114 350.1.13.10 4.2.7.2.686 [id number] 134 [id number] [facility] 2023-05-05 08:00:00 2023-05-05 09:19:38 Outpatient R ADUM, [facility] [id number] [facility] 2023-05-05 08:00:00 2023-05-05 09:19:38 Routine Visit 1, [facility] Room [facility], [facility] 1.2.840.114 350.1.13.10 4.2.7.2.686 [id number] 134 [id number] [facility] 2023-04-28 10:00:00 2023-04-28 11:20:17 Outpatient R ADUM, [facility] [id number] [facility] 2023-04-28 10:00:00 2023-04-28 11:20:17 Routine Visit 1, [facility] Room [facility] 1.2.840.114 350.1.13.10 4.2.7.2.686 [id number] 134 [id number] [facility] 2023-04-21 10:00:00 2023-04-21 11:11:36 Routine Visit 1, [facility] Room [facility] 1.2.840.114 350.1.13.10 4.2.7.2.686 [id number] 134 [id number] [facility] 2023-04-21 10:00:00 2023-04-21 11:11:36 Outpatient R ADUM, [facility] [id number] [facility] 2023-04-20 00:00:00 2023-04-20 00:00:00 Telephone Adum, Dolores Bronson [facility] 1.2840.114 350.1.13.10 4.2.7.2.686 [id number] 134 [id number] [facility] 2023-04-19 13:30:00 2023-04-19 13:55:32 Outpatient R ADUM, DOLORES [facility] [id number] [facility] 2023-04-19 13:30:00 2023-04-19 13:55:32 Nurse [facility], [facility] Adum, Dolores [facility] 1.2840.114 350.1.13.10 4.2.7.2.686 [id number] 134 [id number] [facility] 2023-04-08 08:30:00 2023-04-08 08:30:00 Outpatient R [facility] [id number] [facility] 2023-04-07 16:15:00 2023-04-07 16:15:00 Routine Visit Admarlo Dolores [facility] 1.2840.114 350.1.13.10 4.2.7.2.686 [id number] 134 [id number] [facility] 2023-04-07 16:15:00 2023-04-07 11:10:10 Outpatient R ADUM, [facility] [id number] [facility] 2023-04-07 00:00:00 2023-04-07 00:00:00 Orders Only Doctor Unassigned, [place] [facility] 1.2840.114 350.1.13.10 4.2.7.2.686 [id number] [facility] 2023-04-07 00:00:00 2023-04-07 00:00:00 Telephone Adum, Dolores Bronson [facility] 1.2840.114 350.1.13.10 4.2.7.2.686 [id number] 134 [id number] [facility] 2023-03-24 14:45:00 2023-03-24 15:40:19 Outpatient R ADMARLO [facility] [id number] [facility] 2023-03-24 14:45:00 2023-03-24 15:40:19 Routine Visit [facility], [facility] 1.114 350.1.13.10 4.2.7.2.686 [id number] 134 [id number] [facility] 2023-03-24 13:45:00 2023-03-24 13:45:00 Outpatient R OTTONIEL [facility] [id number] [facility] 2023-03-22 08:00:00 2023-03-22 11:49:53 Outpatient R OTTONIEL [facility] [id number] [facility] 2023-03-22 08:00:00 2023-03-22 08:15:00 Model And Mold Maker Plaster Visit Lab, Ang - Db Ottoniel [facility] [place] BUILDING 1.114 350.1.13.10 4.2.7.2.686 [id number] 353 [id number] [facility] 2023-03-10 16:00:00 2023-03-10 16:32:46 Outpatient R OTTONIEL [facility] [id number] [facility] 2023-03-10 16:00:00 2023-03-10 16:32:46 Routine Visit Ad, [facility] 1.114 350.1.13.10 4.2.7.2.686 [id number] 134 [id number] [facility] 2023-03-10 00:00:00 2023-03-10 00:00:00 Orders Only Doctor Unassigned, [place] [facility] 1.114 350.1.13.10 4.2.7.2.686 [id number] [id number] [facility] 2023-03-09 09:00:00 2023-03-09 12:03:38 Outpatient R ADMARLO [facility] [id number] [facility] 2023-03-09 09:00:00 2023-03-09 09:15:00 Model And Mold Maker Plaster Visit Lab, [facility] MEDICAL OFFICE [facility] 1..840.114 350.1.13.10 4.2.7.2.686 [id number] [facility] 2023-02-17 13:00:00 2023-02-17 13:12:01 Outpatient R OTTONIEL [facility] [id number] [facility] 2023-02-17 13:00:00 2023-02-17 13:12:01 Routine Visit Ottoniel Dolores [facility] 1..840.114 350.1.13.10 4.2.7.2.686 [id number] 134 [id number] [facility] 2023-02-03 15:00:00 2023-02-03 16:00:00 Model And Mold Maker Plaster Visit Ultrasound, Heath Longoria [facility] 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 [facility] 1..840.114 350.1.13.10 4.2.7.2.686 [id number] [facility] 2023-02-03 15:00:00 2023-02-03 15:00:00 Outpatient P HEATH GALLO COREY [facility] [id number] [facility] 2023-01-20 16:00:00 2023-01-20 16:32:43 Outpatient R OTTONIEL [facility] [id number] [facility] 2023-01-20 16:00:00 2023-01-20 16:32:43 Routine Visit Adum, [facility] 1.2840.114 350.1.13.10 4.2.7.2.686 [id number] 134 [id number] [facility] 2022-12-24 13:30:00 2022-12-24 13:45:00 Model And Mold Maker Plaster Visit Lab, Ang - Db Adum, Pending sale to [facility] BUILDING 1.840.114 350.1.13.10 4.2.7.2.686 [id number] 353 [id number] [facility] 2022-12-24 13:30:00 2022-12-24 13:30:00 Outpatient R ADMARLO [facility] [id number] [facility] 2022-12-23 10:00:00 2022-12-23 10:35:37 Outpatient R ADUM, [facility] [id number] [facility] 2022-12-23 10:00:00 2022-12-23 10:35:37 Routine Visit Adum, [facility] 1.2840.114 350.1.13.10 4.2.7.2.686 [id number] 134 [id number] [facility] 2022-12-08 00:00:00 2022-12-08 00:00:00 Telephone Adum, [facility] 1.2.840.114 350.1.13.10 4.2.7.2.686 [id number] 134 [id number] [facility] 2022-11-30 09:00:00 2022-11-30 09:15:00 Model And Mold Maker Plaster Visit Lab, Ang - Db Adum, Pending sale to [facility]ILD[facility] 1.2840.114 350.1.13.10 4.2.7.2.686 [id number] 353 [id number] [facility] 2022-11-30 09:00:00 2022-11-30 09:00:00 Outpatient R ADUM, [facility] [id number] [facility] 2022-11-30 00:00:00 2022-11-30 00:00:00 Orders Only Doctor Unassigned, [place] [facility] 1.2840.114 350.1.13.10 4.2.7.2.686 [id number] [id number] [facility] 2022-11-25 11:15:00 2022-11-25 11:38:29 Outpatient R ADUM, [facility] [id number] [facility] 2022-11-25 11:15:00 2022-11-25 11:38:29 Routine Visit Ad, [facility] 1.114 350.1.13.10 4.2.7.2.686 [id number] 134 [id number] [facility] 2022-11-19 09:00:00 2022-11-19 10:06:27 Model And Mold Maker Plaster Visit Lab, Ang - Db Ad, [facility] 1.114 350.1.13.10 4.2.7.2.686 [id number] 353 [id number] [facility] 2022-11-19 09:00:00 2022-11-19 09:00:00 Outpatient R ADUM, [facility] [id number] [facility] 2022-10-27 14:00:00 2022-10-27 15:35:40 Outpatient R ADUM, [facility] [id number] [facility] 2022-10-27 14:00:00 2022-10-27 15:35:40 Initial Visit [facility], [facility] 1.114 350.1.13.10 4.2.7.2.686 [id number] [facility] 2022-10-27 00:00:00 2022-10-27 00:00:00 Orders Only Doctor Unassigned, [place] [facility] 1.2.840.114 350.1.13.10 4.2.7.2.686 [id number] [id number] [facility] 2021-01-14 14:30:00 2021-01-14 14:30:00 Outpatient Maximo RICCI EUGENE [facility] [id number] [facility] 2020-12-30 09:00:00 2020-12-30 09:00:00 Outpatient Maximo RICCI [facility] [id number] [facility] 2020-12-07 13:15:00 2020-12-07 13:15:00 Outpatient KAYLEEN SCHAEFER [facility] [id number] [facility] 2020-11-25 00:00:00 2020-11-25 00:00:00 Kindra Wild [facility] 1.2.840.114 350.1.13.10 4.2.7.2.686 [id number] 134 [id number] [facility] 2020-11-16 13:20:00 2020-11-16 13:20:00 Outpatient [facility] [id number] [facility] 2020-07-02 11:06:01 2020-07-02 11:21:01 Routine Visit Eugene Ricci [facility] Building 1.2.840.114 350.1.13.10 4.2.7.2.686 [id number] 134 [id number] 2020-07-02 11:06:01 2020-07-02 11:21:01 Routine Visit Eugene Ricci [facility] Building 1.2.840.114 350.1.13.10 4.2.7.2.686 [id number] 134 [id number] [facility] 2020-07-02 11:00:00 2020-07-02 11:00:00 Outpatient Maximo EMMAEUGENE MARINELLI [facility] [id number] [facility] 2020-07-02 00:00:00 2020-07-02 00:00:00 Orders Only Doctor Unassigned, [place] [facility] 1.2.840.114 350.1.13.10 4.2.7.2.686 [id number] [id number] 2020-07-02 00:00:00 2020-07-02 00:00:00 Orders Only Doctor Unassigned, [place] [facility] 1.2.840.114 350.1.13.10 4.2.7.2.686 [id number] [id number] [facility] 2020-06-14 00:00:00 2020-06-14 00:00:00 Telephone Kindra Griggs [facility] 1.20.114 350.1.13.10 4.2.7.2.686 [id number] 134 [id number] [facility] 2020-06-14 00:00:00 2020-06-14 00:00:00 Orders Only Doctor Unassigned, [place] [facility] 1.2.840.114 350.1.13.10 4.2.7.2.686 [id number] [id number] [facility] 2020-06-14 00:00:00 2020-06-14 00:00:00 Telephone Kindra Griggs [facility] 1.2840.114 350.1.13.10 4.2.7.2.686 [id number] 134 [id number] 2020-06-14 00:00:00 2020-06-14 00:00:00 Orders Only Doctor Unassigned, [place] [facility] 1.2.840.114 350.1.13.10 4.2.7.2.686 [id number] [id number] 2020-06-11 14:14:54 2020-06-11 14:37:51 Nurse Visit Nurse, [facility] Kindra Griggs [facility] 1.2.840.114 350.1.13.10 4.2.7.2.686 [id number] 134 [id number] [facility] 2020-06-11 14:14:54 2020-06-11 14:37:51 Nurse Visit Nurse, [facility] 1.2.840.114 350.1.13.10 4.2.7.2.686 [id number] 134 [id number] 2020-06-11 14:00:00 2020-06-11 14:00:00 Outpatient R [facility] [id number] [facility] 2020-06-03 05:33:00 2020-06-04 18:30:00 Hospital Encounter Kindra Griggs [facility] 1.2.840.114 350.1.13.10 4.2.7.2.686 [id number] [facility] 2020-06-03 05:33:00 2020-06-04 18:30:00 Hospital Encounter Kindra Griggs [facility] 1.2.840.114 350.1.13.10 4.2.7.2.686 [id number] 2020-06-03 05:33:00 2020-06-03 05:33:00 Outpatient P [facility] CARLOS [id number] [facility] 2020-06-03 00:00:00 2020-06-03 00:00:00 Orders Only Doctor Unassigned, [place] [facility] 1.2840.114 350.1.13.10 4.2.7.2.686 [id number] [id number] [facility] 2020-06-03 00:00:00 2020-06-03 00:00:00 Orders Only Doctor Unassigned, [place] [facility] 1.2.840.114 350.1.13.10 4.2.7.2.686 [id number] [id number] 2020-05-31 10:58:53 2020-05-31 11:13:53 Laboratory Only Only, Adc Test Kindra Griggs [facility] 1.2.840.114 350.1.13.10 4.2.7.2.686 [id number] 353 [id number] [facility] 2020-05-31 10:15:00 2020-05-31 10:15:00 Outpatient R [facility] [id number] [facility] 2020-05-29 00:00:00 2020-05-29 00:00:00 Telephone Kindra Griggs [facility] Building 1.2.840.114 350.1.13.10 4.2.7.2.686 [id number] 134 [id number] [facility] 2020-05-28 16:00:11 2020-05-28 16:49:53 Routine Visit Kindra Griggs [facility] Building 1.2.840.114 350.1.13.10 4.2.7.2.686 [id number] 134 [id number] [facility] 2020-05-28 16:00:11 2020-05-28 16:49:53 Routine Visit Kindra Griggs [facility] Building 1.2.840.114 350.1.13.10 4.2.7.2.686 [id number] 134 [id number] 2020-05-28 15:53:23 2020-05-28 16:08:23 Model And Mold Maker Plaster Visit 2, Adc Lab Kindra Griggs [facility] Building 1.2.840.114 350.1.13.10 4.2.7.2.686 [id number] 353 [id number] [facility] 2020-05-28 16:00:00 2020-05-28 16:00:00 Outpatient R KINDRA GRIGGS [facility] [id number] [facility] 2020-05-23 00:00:00 2020-05-23 00:00:00 Prep For Surgery Kindra Griggs [facility] 1.2.840.114 350.1.13.10 4.2.7.2.686 [id number] 134 [id number] [facility] 2020-05-22 16:09:56 2020-05-22 17:21:44 [facility] 1.2.840.114 350.1.13.10 4.2.7.2.686 [id number] 134 [id number] [facility] 2020-05-22 16:15:00 2020-05-22 16:15:00 Outpatient R KINDRA GRIGGS [facility] [id number] [facility] 2020-05-20 11:15:00 2020-05-20 11:15:00 [id number] 2020-05-20 10:31:01 2020-05-20 10:46:01 Model And Mold Maker Plaster Visit 2, Adc Lab Eugene Ricci [facility] 1.2.840.114 350.1.13.10 4.2.7.2.686 [id number] 353 [id number] [facility] 2020-05-06 15:51:49 2020-05-20 10:35:13 Routine Visit Kindra Griggs [facility] 1.2.840.114 350.1.13.10 4.2.7.2.686 [id number] 134 [id number] [facility] 2020-05-06 16:00:00 2020-05-06 16:00:00 [facility] [id number] 2020-05-02 09:00:00 2020-05-02 09:00:00 [facility] [id number] [facility] 2020-04-19 16:00:00 2020-04-19 16:00:00 Outpatient R KINDRA GRIGGS [facility] [id number] [facility] 2020-04-18 11:00:18 2020-04-18 11:15:18 Routine Visit [facility] 1.2.840.114 350.1.13.10 4.2.7.2.686 [id number] 134 [id number] [facility] 2020-04-18 10:45:00 2020-04-18 10:45:00 Outpatient R EUGENE RICCI [facility] [id number] [facility] 2020-04-18 00:00:00 2020-04-18 00:00:00 Letter (Out) Kindra Griggs [facility] Building 1.2.840.114 350.1.13.10 4.2.7.2.686 [id number] 134 [id number] [facility] 2020-04-18 00:00:00 2020-04-18 00:00:00 Letter (Out) Kindra Griggs [facility] 1.2.840.114 350.1.13.10 4.2.7.2.686 [id number] 134 [id number] [facility] 2020-04-05 16:00:00 2020-04-05 16:00:00 Outpatient R KINDRA GRIGGS [facility] [id number] [facility] 2020-04-05 14:13:39 2020-04-05 14:45:49 Routine Visit Kindra Griggs [facility] 1.2.840.114 350.1.13.10 4.2.7.2.686 [id number] 134 [id number] [facility] 2020-04-05 14:15:00 2020-04-05 14:15:00 [facility] [id number] [facility] 2020-03-29 08:15:00 2020-03-29 08:15:00 Outpatient R KINDRA GRIGGS [facility] [id number] [facility] 2020-03-26 13:00:00 2020-03-26 13:00:00 Outpatient R KINDRA GRIGGS [facility] [id number] [facility] 2020-03-26 09:24:04 2020-03-26 09:39:04 Telemedici ne Visit [facility] 1.2.840.114 350.1.13.10 4.2.7.2.686 [id number] 134 [id number] [facility] 2020-03-15 15:37:33 2020-03-15 16:07:33 Model And Mold Maker Plaster Visit Ultrasound, [facility] 1.2.840.114 350.1.13.10 4.2.7.2.686 [id number] 134 [id number] [facility] 2020-03-15 10:34:25 2020-03-15 10:49:25 Model And Mold Maker Plaster Visit 2, Adc Lab Kindra Griggs [facility] Building 1.2.840.114 350.1.13.10 4.2.7.2.686 [id number] [facility] 2020-03-15 08:54:47 2020-03-15 09:40:37 Routine Visit Keiry [facility] Building 1.2.840.114 350.1.13.10 4.2.7.2.686 [id number] [facility] 2020-03-15 08:45:00 2020-03-15 08:45:00 Outpatient R KEIRY EUGENE [facility] [id number] [facility] 2020-02-14 11:30:00 2020-02-14 11:30:00 Outpatient R KINDRA GRIGGS [facility] [id number] [facility] 2020-02-14 08:14:55 2020-02-14 08:29:55 Telemedici ne Visit Kindra Griggs [facility] Building 1.84.114 350.1.13.10 4.2.7.2.686 [id number] [facility] 2020-02-05 09:45:00 2020-02-05 09:45:00 Outpatient R [facility] [id number] [facility] 2020-02-04 09:09:34 2020-02-04 09:29:34 Laboratory Only Lab, [facility] Estephania Puentes [facility] Building One 1.84.114 350.1.13.10 4.2.7.2.686 [id number] [facility] 2020-02-04 09:00:00 2020-02-04 09:00:00 Outpatient R [facility] [id number] [facility] 2020-02-01 00:00:00 2020-02-01 00:00:00 Telephone Kindra Griggs [facility] Building 1.84.114 350.1.13.10 4.2.7.2.686 [id number] [facility] 2020-01-25 13:28:32 2020-01-25 13:43:32 [employer] Visit 2, [facility] 1.84.114 350.1.13.10 4.2.7.2.686 [id number] [facility] 2020-01-25 13:30:00 2020-01-25 13:30:00 Outpatient R [facility] [id number] [facility] 2020-01-25 00:00:00 2020-01-25 00:00:00 Orders Only Doctor Unassigned, [place] [facility] 1.114 350.1.13.10 4.2.7.2.686 [id number] [facility] 2020-01-23 13:49:51 2020-01-23 15:04:51 Model And Mold Maker Plaster Visit Ultrasound, Jatinder Monroe [facility] 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 [facility] 1..840.114 350.1.13.10 4.2.7.2.686 [id number] [facility] 2020-01-23 14:00:00 2020-01-23 14:00:00 Outpatient P [facility] [id number] [facility] 2020-01-05 07:55:00 2020-01-05 09:38:04 Telemedici ne Visit Keiry [facility] 1..840.114 350.1.13.10 4.2.7.2.686 [id number] [facility] 2020-01-05 09:15:00 2020-01-05 09:15:00 Outpatient Maximo RICCI [facility] [id number] [facility] 2020-01-05 00:00:00 2020-01-05 00:00:00 Case Management Keiry [facility] 1..840.114 350.1.13.10 4.2.7.2.686 [id number] [facility] 2020-01-02 11:15:00 2020-01-02 11:15:00 Outpatient Maximo RICCI EUGENE [facility] [id number] [facility] 2019-12-14 00:00:00 2019-12-14 00:00:00 Telephone Kindra Griggs [facility] 1..840.114 350.1.13.10 4.2.7.2.686 [id number] [facility] 2019-12-14 00:00:00 2019-12-14 00:00:00 Telephone Griggs, Kindra [facility] nal [facility] 1.2.840.114 350.1.13.10 4.2.7.2.686 [id number] [facility] 2019-12-11 10:00:00 2019-12-11 10:00:00 Outpatient R [facility] [id number] [facility] 2019-12-11 00:00:00 2019-12-11 00:00:00 [facility] 1.2.840.114 350.1.13.10 4.2.7.2.686 [id number] [facility] 2019-12-07 00:00:00 2019-12-07 00:00:00 [facility] 1.2.840.114 350.1.13.10 4.2.7.2.686 [id number] [facility] 2019-12-04 09:30:00 2019-12-04 09:30:00 Outpatient R KINDRA GRIGGS [facility] [id number] [facility] Results Test Description Test Time Test Comments Results Result Co mments Source [facility] [id number] 12:26:30* Test Item Value Reference Range Interpretation Comme nts GLU FASTNG (test code = 6816027575) 93 mg/dL 70-110 Lab Interpretation (test cod e = 82463-4) Normal [facility] GLUCOSE (AUTOMATED)2023-05-25 11:27:27* Test Item Value Reference Range Interpretation Comme nts POCT GLU (test code = 2560943016) 87 mg/dL 70-110 Lab Interpretation (test cod e = 21479-3) Normal [facility] GLUCOSE (AUTOMATED)2023-05-25 11:27:27* Test Item Value Reference Range Interpretation Comme nts POCT GLU (test code = 9033631234) 87 mg/dL 70-110 Lab Interpretation (test cod e = 05764-2) Normal [facility] URINALYSIS W/O SPECIFIC [id number] 14:06:00* Test Item Value Reference Range Interpretation Comme nts POCT PH U (test code = 3254) N/A 5-8 POCT U LEUK EST (test code = 3263) N/A Negative - Negative POCT U NIT (test code = 3262) N/A Negative - Negati ve POCT U PROT (test code = 3259) NEGATIVE Negative - Negat chantal POCT U GLU (test code = 3256) NEGATIVE Negative - Negati ve POCT U KETONE (test code = 3258) N/A Negative - Neg ative POCT U BLD (test code = 3257) N/A Negative - Negati ve [facility] URINALYSIS W/O SPECIFIC [id number] 14:14:00* Test Item Value Reference Range Interpretation Comme nts POCT PH U (test code = 3254) n/a 5-8 POCT U LEUK EST (test code = 3263) n/a Negative - Negative POCT U NIT (test code = 3262) n/a Negative - Negati ve POCT U PROT (test code = 3259) negative Negative - Negat chantal POCT U GLU (test code = 3256) negative Negative - Negati ve POCT U KETONE (test code = 3258) n/a Negative - Neg ative POCT U BLD (test code = 3257) n/a Negative - Negati ve [facility] URINALYSIS W/O SPECIFIC [id number] 14:59:00* Test Item Value Reference Range Interpretation Comme nts POCT PH U (test code = 3254) n/a 5-8 POCT U LEUK EST (test code = 3263) n/a Negative - Negative POCT U NIT (test code = 3262) n/a Negative - Negati ve POCT U PROT (test code = 3259) negative Negative - Negat chantal POCT U GLU (test code = 3256) negative Negative - Negati ve POCT U KETONE (test code = 3258) n/a Negative - Neg ative POCT U BLD (test code = 3257) n/a Negative - Negati ve [facility] URINALYSIS W/O SPECIFIC [id number] 14:59:00* Test Item Value Reference Range Interpretation Comme nts POCT PH U (test code = 3254) n/a 5-8 POCT U LEUK EST (test code = 3263) n/a Negative - Negative POCT U NIT (test code = 3262) n/a Negative - Negati ve POCT U PROT (test code = 3259) negative Negative - Negat chantal POCT U GLU (test code = 3256) negative Negative - Negati ve POCT U KETONE (test code = 3258) n/a Negative - Neg ative POCT U BLD (test code = 3257) n/a Negative - Negati ve [facility] URINALYSIS W/O SPECIFIC [id number] 14:59:00* Test Item Value Reference Range Interpretation Comme nts POCT PH U (test code = 3254) n/a 5-8 POCT U LEUK EST (test code = 3263) n/a Negative - Negative POCT U NIT (test code = 3262) n/a Negative - Negati ve POCT U PROT (test code = 3259) negative Negative - Negat chantal POCT U GLU (test code = 3256) negative Negative - Negati ve POCT U KETONE (test code = 3258) n/a Negative - Neg ative POCT U BLD (test code = 3257) n/a Negative - Negati ve [facility] URINALYSIS W/O SPECIFIC [id number] 16:12:00* Test Item Value Reference Range Interpretation Comme nts POCT PH U (test code = 3254) N/A 5-8 POCT U LEUK EST (test code = 3263) N/A Negative - Negative POCT U NIT (test code = 3262) N/A Negative - Negati ve POCT U PROT (test code = 3259) Negative Negative - Negat chantal POCT U GLU (test code = 3256) Negative Negative - Negati ve POCT U KETONE (test code = 3258) N/A Negative - Neg ative POCT U BLD (test code = 3257) N/A Negative - Negati ve [facility] URINALYSIS W/O SPECIFIC [id number] 15:04:00* Test Item Value Reference Range Interpretation Comme nts POCT PH U (test code = 3254) n/a 5-8 POCT U LEUK EST (test code = 3263) n/a Negative - Negative POCT U NIT (test code = 3262) n/a Negative - Negati ve POCT U PROT (test code = 3259) negaitve Negative - Negat chantal POCT U GLU (test code = 3256) negative Negative - Negati ve POCT U KETONE (test code = 3258) n/a Negative - Neg ative POCT U BLD (test code = 3257) n/a Negative - Negati ve [facility] URINALYSIS W/O SPECIFIC [id number] 15:30:00* Test Item Value Reference Range Interpretation Comme nts POCT PH U (test code = 3254) n/a 5-8 POCT U LEUK EST (test code = 3263) n/a Negative - Negative POCT U NIT (test code = 3262) n/a Negative - Negati ve POCT U PROT (test code = 3259) negative Negative - Negat chantal POCT U GLU (test code = 3256) negative Negative - Negati ve POCT U KETONE (test code = 3258) n/a Negative - Neg ative POCT U BLD (test code = 3257) n/a Negative - Negati ve [facility] URINALYSIS W/O SPECIFIC [id number] 20:00:00* Test Item Value Reference Range Interpretation Comme nts POCT PH U (test code = 3254) n/a 5-8 POCT U LEUK EST (test code = 3263) n/a Negative - Negative POCT U NIT (test code = 3262) n/a Negative - Negati ve POCT U PROT (test code = 3259) Negative Negative - Negat chantal POCT U GLU (test code = 3256) Normal Negative - Negati ve POCT U KETONE (test code = 3258) n/a Negative - Neg ative POCT U BLD (test code = 3257) n/a Negative - Negati ve [facility] URINALYSIS W/O SPECIFIC [id number] 20:00:00* Test Item Value Reference Range Interpretation Comme nts POCT PH U (test code = 3254) n/a 5-8 POCT U LEUK EST (test code = 3263) n/a Negative - Negative POCT U NIT (test code = 3262) n/a Negative - Negati ve POCT U PROT (test code = 3259) Negative Negative - Negat chantal POCT U GLU (test code = 3256) Normal Negative - Negati ve POCT U KETONE (test code = 3258) n/a Negative - Neg ative POCT U BLD (test code = 3257) n/a Negative - Negati ve [facility] URINALYSIS W/O SPECIFIC [id number] 20:00:00* Test Item Value Reference Range Interpretation Comme nts POCT PH U (test code = 3254) n/a 5-8 POCT U LEUK EST (test code = 3263) n/a Negative - Negative POCT U NIT (test code = 3262) n/a Negative - Negati ve POCT U PROT (test code = 3259) Negative Negative - Negat chantal POCT U GLU (test code = 3256) Normal Negative - Negati ve POCT U KETONE (test code = 3258) n/a Negative - Neg ative POCT U BLD (test code = 3257) n/a Negative - Negati ve [facility] URINALYSIS W/O SPECIFIC [id number] 20:00:00* Test Item Value Reference Range Interpretation Comme nts POCT PH U (test code = 3254) n/a 5-8 POCT U LEUK EST (test code = 3263) n/a Negative - Negative POCT U NIT (test code = 3262) n/a Negative - Negati ve POCT U PROT (test code = 3259) Negative Negative - Negat chantal POCT U GLU (test code = 3256) Normal Negative - Negati ve POCT U KETONE (test code = 3258) n/a Negative - Neg ative POCT U BLD (test code = 3257) n/a Negative - Negati ve [facility] URINALYSIS W/O SPECIFIC [id number] 21:00:00* Test Item Value Reference Range Interpretation Comme nts POCT PH U (test code = 3254) n/a 5-8 POCT U LEUK EST (test code = 3263) n/a Negative - Negative POCT U NIT (test code = 3262) n/a Negative - Negati ve POCT U PROT (test code = 3259) negative Negative - Negat chantal POCT U GLU (test code = 3256) negative Negative - Negati ve POCT U KETONE (test code = 3258) n/a Negative - Neg ative POCT U BLD (test code = 3257) n/a Negative - Negati ve [facility] URINALYSIS W/O SPECIFIC [id number] 21:00:00* Test Item Value Reference Range Interpretation Comme nts POCT PH U (test code = 3254) n/a 5-8 POCT U LEUK EST (test code = 3263) n/a Negative - Negative POCT U NIT (test code = 3262) n/a Negative - Negati ve POCT U PROT (test code = 3259) negative Negative - Negat chantal POCT U GLU (test code = 3256) negative Negative - Negati ve POCT U KETONE (test code = 3258) n/a Negative - Neg ative POCT U BLD (test code = 3257) n/a Negative - Negati ve [facility] URINALYSIS W/O SPECIFIC [id number] 18:14:00* Test Item Value Reference Range Interpretation Comme nts POCT PH U (test code = 3254) n/a 5-8 POCT U LEUK EST (test code = 3263) n/a Negative - Negative POCT U NIT (test code = 3262) negative Negative - Negati ve POCT U PROT (test code = 3259) negative Negative - Negat chantal POCT U GLU (test code = 3256) n/a Negative - Negati ve POCT U KETONE (test code = 3258) n/a Negative - Neg ative POCT U BLD (test code = 3257) n/a Negative - Negati ve [facility] URINALYSIS W/O SPECIFIC [id number] 21:07:00* Test Item Value Reference Range Interpretation Comme nts POCT PH U (test code = 3254) n/a 5-8 POCT U LEUK EST (test code = 3263) n/a Negative - Negative POCT U NIT (test code = 3262) n/a Negative - Negati ve POCT U PROT (test code = 3259) negative Negative - Negat chantal POCT U GLU (test code = 3256) negative Negative - Negati ve POCT U KETONE (test code = 3258) n/a Negative - Neg ative POCT U BLD (test code = 3257) n/a Negative - Negati ve [facility] URINALYSIS W/O SPECIFIC [id number] 15:09:00* Test Item Value Reference Range Interpretation Comme nts POCT PH U (test code = 3254) N/A 5-8 POCT U LEUK EST (test code = 3263) N/A Negative - Negative POCT U NIT (test code = 3262) N/A Negative - Negati ve POCT U PROT (test code = 3259) Trace Negative - Negat chantal POCT U GLU (test code = 3256) Negative Negative - Negati ve POCT U KETONE (test code = 3258) N/A Negative - Neg ative POCT U BLD (test code = 3257) N/A Negative - Negati ve [facility] URINALYSIS W/O SPECIFIC [id number] 16:22:00* Test Item Value Reference Range Interpretation Comme nts POCT PH U (test code = 3254) N/A 5-8 POCT U LEUK EST (test code = 3263) N/A Negative - Negative POCT U NIT (test code = 3262) N/A Negative - Negati ve POCT U PROT (test code = 3259) Negative Negative - Negat chantal POCT U GLU (test code = 3256) Negative Negative - Negati ve POCT U KETONE (test code = 3258) N/A Negative - Neg ative POCT U BLD (test code = 3257) N/A Negative - Negati ve [facility] URINALYSIS W/O SPECIFIC [id number] 16:22:00* Test Item Value Reference Range Interpretation Comme nts POCT PH U (test code = 3254) N/A 5-8 POCT U LEUK EST (test code = 3263) N/A Negative - Negative POCT U NIT (test code = 3262) N/A Negative - Negati ve POCT U PROT (test code = 3259) Negative Negative - Negat chantal POCT U GLU (test code = 3256) Negative Negative - Negati ve POCT U KETONE (test code = 3258) N/A Negative - Neg ative POCT U BLD (test code = 3257) N/A Negative - Negati ve [facility] URINALYSIS W/O SPECIFIC [id number] 19:16:00* Test Item Value Reference Range Interpretation Comme nts POCT PH U (test code = 3254) N/A 5-8 POCT U LEUK EST (test code = 3263) N/A Negative - Negative POCT U NIT (test code = 3262) N/A Negative - Negati ve POCT U PROT (test code = 3259) Negative Negative - Negat chantal POCT U GLU (test code = 3256) Negative Negative - Negati ve POCT U KETONE (test code = 3258) N/A Negative - Neg ative POCT U BLD (test code = 3257) N/A Negative - Negati ve [facility] [id number] 19:16:00* Test Item Value Reference Range Interpretation Comme nts POCT PREG (test code = 1605) Positive On board controls acceptable with C Line (test code = 3574) Yes POCT PREG LOT # (test code = 3575) POCT PREG TEST DATE ( test code = 3576) [facility] [id number] 17:20:00* Test Item Value Reference Range Interpretation Comme nts POCT PREG (test code = 1605) Negative On board controls acceptable with C Line (test code = 3574) Yes POCT PREG LOT # (test code = 3575) POCT PREG TEST DATE ( test code = 3576) Lab Interpretation (test cod e = 42432-0) Normal [facility] with [id number] 10:06:00* Test Item Value Reference Range Interpretation Comme nts WBC (test code = 6690-2) See_Comment [Automated messa ge] The system which generated this result transmitted reference range: 4.30 - 11.10 10*3/?L. The reference range was not used to interpret this result as normal/abnormal. RBC (test code = 789-8) See_Comment L [Automated messa ge] The system which generated this result transmitted reference range: 3.93 - 5.25 10*6/?L. The reference range was not used to interpret this result as normal/abnormal. HGB (test code = 718-7) 9.6 g/dL 11.6-15 L HCT (test code = 4544-3) 27.9 % 35.7-45.2 L MCV (test code = 787-2) 87.7 fL 80.6-95.5 MCH (test code = 785-6) 30.2 pg 25.9-32.8 MCHC (test code = 786-4) 34.4 g/dL 31.6-35.1 RDW-SD (test code = 36979-0) 40.2 fL 39-49.9 RDW-CV (test code = 788-0) 12.6 % 12-15.5 PLT (test code = 777-3) See_Comment [Automated messa ge] The system which generated this result transmitted reference range: 166 - 358 10*3/?L. The reference range was not used to interpret this result as normal/abnormal. MPV (test code = 75818-9) 10.4 fL 9.5-12.9 NRBC/100 WBC (test code = 3569765167) See_Comment [Automated [employer] ssage] The system which generated this result transmitted reference range: 0.0 - 10.0 /100 WBCs. The reference range was not used to interpret this result as normal/abnormal. NRBC x10^3 (test code = 5699625960) <0.01 See_Comment [Automated messa ge] The system which generated this result transmitted reference range: 10*3/?L. The reference range was not used to interpret this result as normal/abnormal. GRAN MAT (NEUT) % (test code = 770-8) 67.7 % IMM GRAN % (test code = 0027631119) 0.20 % LYMPH % (test code = 736-9) 26.2 % MONO % (test code = 5905-5) 4.6 % EOS % (test code = 713-8) 1.1 % BASO % (test code = 706-2) 0.2 % GRAN MAT x10^3(ANC) (test code = 9287117915) 5.41 10*3/uL 1.88-7.09 IMM GRAN x10^3 (test code = 4581766199) <0.03 0-0.06 LYMPH x10^3 (test code = 731-0) 2.10 10*3/uL 1.32-3.29 MONO x10^3 (test code = 742-7) 0.37 10*3/uL 0.33-0.92 EOS x10^3 (test code = 711-2) 0.09 10*3/uL 0.03-0.39 BASO x10^3 (test code = 704-7) <0.03 0.01-0.07 Lab Interpretation (test code = 47379-4) Abnormal [facility] - [id number] 06:12:00* Test Item Value Reference Range Interpretation Comme nts RPR (Qualitative) (test code = 43571-9) Nonreactive Nonreactive Lab Interpretation (test cod e = 97997-2) Normal [facility] (D) IMMUNE [id number] 17:33:53* Test Item Value Reference Range Interpretation Comme nts RHIG CANDIDATE? (test code = 5055) No- see comment Patient is not a candidate for RhIg- Patient is Rh Positive.Performed at [facility] Laboratory Services - [facility] Blood [address] [place] [id number] Free: [phone] No. [id number] [facility]lakeHEPATITIS B SURFACE [id number] 15:45:00 * Test Item Value Reference Range Interpretation Comme nts HBsAg Semi-Quantitative (olayinka t code = 5195-3) Negative Negative [facility]lakeHIV [facility]/2 AG-AB WITH [id number] 14:03:00* Test Item Value Reference Range Interpretation Comme nts HIV Semi-quantitative (test code = 64562-1) Negative Negative JUAN FRANCISCO (test code = JUAN FRANCISCO) Non-reactive for HIV-1 antigen and HIV-1/HIV-2 antibodies. ?No laboratory evidence of HIV infection. ?Repeat in 2-4 weeks if acute HIV infection is suspected. [facility]lake[facility]ous Cord [id number] 13:53:00* Test Item Value Reference Range Interpretation Comme nts VENOUS BASE EXCESS, CORD (test code = 7678036316) mEq/L VENOUS PH, CORD (test code = 4327818786) 7.25-7.45 VENOUS PC02, CORD (test code = 9311067273) See_Comment [Automated messa ge] The system which generated this result transmitted reference range: 27 - 49 mmHg. The reference range was not used to interpret this result as normal/abnormal. VENOUS PO2, CORD (test code = 9259875952) See_Comment [Automated me ssage] The system which generated this result transmitted reference range: 17 - 41 mmHg. The reference range was not used to interpret this result as normal/abnormal. VENOUS BICARBONATE, CORD (test code = 7565965958) See_Comment [Automated messa ge] The system which generated this result transmitted reference range: 12 - 29 mEq/L. The reference range was not used to interpret this result as normal/abnormal. [facility]lake[facility]ial Cord [id number] 13:50:00* Test Item Value Reference Range Interpretation Comme nts BASE EXCESS, CORD (test code = 5155428322) mEq/L AC PH, CORD (BEAKER) (test code = 7333820815) 7.18-7.38 PC02, CORD (test code = 3174822161) See_Comment [Automated messa ge] The system which generated this result transmitted reference range: 32 - 66 mmHg. The reference range was not used to interpret this result as normal/abnormal. PO2, CORD (test code = 6942647594) See_Comment [Automated messa ge] The system which generated this result transmitted reference range: 10 - 30 mmHg. The reference range was not used to interpret this result as normal/abnormal. BICARBONATE, CORD (test code = 1095131960) See_Comment [Automated messa ge] The system which generated this result transmitted reference range: 17 - 27 mEq/L. The reference range was not used to interpret this result as normal/abnormal. [facility]lakeType and Screen - ONCE [id number] 13:13:48* Test Item Value Reference Range Interpretation Comme nts ABO & RH (test code = 20) A Positive Performed at [facility] Laboratory [facility] - [facility] Blood [address] [place] [address] Free: [phone] No. [id number] IAT (test code = 1185) Negative Performed at [facility] Laboratory [facility] Blood [address]Toll Free: [phone] No. [id number] [facility]lakeCB WITH [id number] 12:08:00* Test Item Value Reference Range Interpretation Comme nts WBC (test code = 6690-2) See_Comment [Automated messa ge] The system which generated this result transmitted reference range: 4.30 - 11.10 10*3/?L. The reference range was not used to interpret this result as normal/abnormal. RBC (test code = 789-8) See_Comment L [Automated messa ge] The system which generated this result transmitted reference range: 3.93 - 5.25 10*6/?L. The reference range was not used to interpret this result as normal/abnormal. HGB (test code = 718-7) 11.1 g/dL 11.6-15 L HCT (test code = 4544-3) 33.3 % 35.7-45.2 L MCV (test code = 787-2) 87.4 fL 80.6-95.5 MCH (test code = 785-6) 29.1 pg 25.9-32.8 MCHC (test code = 786-4) 33.3 g/dL 31.6-35.1 RDW-SD (test code = 26157-2) 39.5 fL 39-49.9 RDW-CV (test code = 788-0) 12.6 % 12-15.5 PLT (test code = 777-3) See_Comment [Automated messa ge] The system which generated this result transmitted reference range: 166 - 358 10*3/?L. The reference range was not used to interpret this result as normal/abnormal. MPV (test code = 78200-0) 10.2 fL 9.5-12.9 NRBC/100 WBC (test code = 2811314938) See_Comment [Automated me ssage] The system which generated this result transmitted reference range: 0.0 - 10.0 /100 WBCs. The reference range was not used to interpret this result as normal/abnormal. NRBC x10^3 (test code = 2416132058) <0.01 See_Comment [Automated messa ge] The system which generated this result transmitted reference range: 10*3/?L. The reference range was not used to interpret this result as normal/abnormal. GRAN MAT (NEUT) % (test code = 770-8) 61.3 % IMM GRAN % (test code = 9714523733) 0.30 % LYMPH % (test code = 736-9) 31.8 % MONO % (test code = 5905-5) 3.6 % EOS % (test code = 713-8) 2.4 % BASO % (test code = 706-2) 0.6 % GRAN MAT x10^3(ANC) (test code = 2150765629) 4.04 10*3/uL 1.88-7.09 IMM GRAN x10^3 (test code = 8819529822) <0.03 0-0.06 LYMPH x10^3 (test code = 731-0) 2.10 10*3/uL 1.32-3.29 MONO x10^3 (test code = 742-7) 0.24 10*3/uL 0.33-0.92 L EOS x10^3 (test code = 711-2) 0.16 10*3/uL 0.03-0.39 BASO x10^3 (test code = 704-7) 0.04 10*3/uL 0.01-0.07 Lab Interpretation (test code = 01737-4) Abnormal [facility] URINALYSIS W/O SPECIFIC [id number] 21:31:00* Test Item Value Reference Range Interpretation Comme nts POCT PH U (test code = 3254) N/A 5-8 POCT U LEUK EST (test code = 3263) N/A Negative - Negative POCT U NIT (test code = 3262) N/A Negative - Negati ve POCT U PROT (test code = 3259) Negative Negative - Negat chantal POCT U GLU (test code = 3256) Negative Negative - Negati ve POCT U KETONE (test code = 3258) N/A Negative - Neg ative POCT U BLD (test code = 3257) N/A Negative - Negati ve [facility] UR[facility] W/O SPECIFIC [id number] 21:31:00* Test Item Value Reference Range Interpretation Comme nts POCT PH U (test code = 3254) N/A 5-8 POCT U LEUK EST (test code = 3263) N/A Negative - Negative POCT U NIT (test code = 3262) N/A Negative - Negati ve POCT U PROT (test code = 3259) Negative Negative - Negat chantal POCT U GLU (test code = 3256) Negative Negative - Negati ve POCT U KETONE (test code = 3258) N/A Negative - Neg ative POCT U BLD (test code = 3257) N/A Negative - Negati ve [facility] URINAL[facility] W/O SPECIFIC [id number] 21:31:00* Test Item Value Reference Range Interpretation Comme nts POCT PH U (test code = 3254) N/A 5-8 POCT U LEUK EST (test code = 3263) N/A Negative - Negative POCT U NIT (test code = 3262) N/A Negative - Negati ve POCT U PROT (test code = 3259) Negative Negative - Negat chantal POCT U GLU (test code = 3256) Negative Negative - Negati ve POCT U KETONE (test code = 3258) N/A Negative - Neg ative POCT U BLD (test code = 3257) N/A Negative - Negati ve [facility]>14 WEEKS US JNZZGOM3361-59-74 22:27:09Limited USG for presentation: ?Cephalic Kindra Griggs MD ?05/22/2020 ?5:27 PM[facility]>14 WEEKS US LIMITED 2020-05-22 22:27:09Limited USG for presentation: ?Cephalic Kindra Griggs MD ?05/22/2020 ?5:[facility] QORKWHM3681-03-07 21:32:00* Test Item Value Reference Range Interpretation Comme nts POCT PH U (test code = 3254) n/a 5-8 POCT U LEUK EST (test code = 3263) n/a Negative - N egative POCT U NIT (test code = 3262) n/a Negative - Negati ve POCT U PROT (test code = 3259) neg Negative - Negat chantal POCT U GLU (test code = 3256) neg Negative - Negati ve POCT U KETONE (test code = 3258) n/a Negative - Neg ative POCT U BLD (test code = 3257) n/a Negative - Negati ve [facility] URINALYSIS W/O SPECIFIC RHQJQEF0686-89-16 21:32:00* Test Item Value Reference Range Interpretation Comme nts POCT PH U (test code = 3254) n/a 5-8 POCT U LEUK EST (test code = 3263) n/a Negative - N egative POCT U NIT (test code = 3262) n/a Negative - Negati ve POCT U PROT (test code = 3259) neg Negative - Negat chantal POCT U GLU (test code = 3256) neg Negative - Negati ve POCT U KETONE (test code = 3258) n/a Negative - Neg ative POCT U BLD (test code = 3257) n/a Negative - Negati ve [facility] URINALYSIS W/O SPECIFIC QGKSWBC3815-50-04 16:10:00* Test Item Value Reference Range Interpretation Comme nts POCT PH U (test code = 3254) n/a 5-8 POCT U LEUK EST (test code = 3263) n/a Negative - N egative POCT U NIT (test code = 3262) n/a Negative - Negati ve POCT U PROT (test code = 3259) neg Negative - Negat chantal POCT U GLU (test code = 3256) neg Negative - Negati ve POCT U KETONE (test code = 3258) n/a Negative - Neg ative POCT U BLD (test code = 3257) n/a Negative - Negati ve [facility] URINALYSIS W/O SPECIFIC KFBDZQC3465-27-06 19:32:00* Test Item Value Reference Range Interpretation Comme nts POCT PH U (test code = 3254) n/a 5-8 POCT U LEUK EST (test code = 3263) n/a Negative - N egative POCT U NIT (test code = 3262) n/a Negative - Negati ve POCT U PROT (test code = 3259) neg Negative - Negat chantal POCT U GLU (test code = 3256) neg Negative - Negati ve POCT U KETONE (test code = 3258) n/a Negative - Neg ative POCT U BLD (test code = 3257) n/a Negative - Negati ve Lab Interpretation (test cod e = 85980-2) Normal [facility] Lcmzfnxj1587-53-15 18:01:00* Test Item Value Reference Range Interpretation Comme nts GLUC 1 HR (test code = 0956677708) 109 mg/dL 120-170 L Lab Interpretation (test cod e = 45292-4) Abnormal [facility] with Rsiyiyzidgiq3240-13-58 17:48:00* Test Item Value Reference Range Interpretation Comme nts WBC (test code = 6690-2) See_Comment [Automated [employer]] The system which generated this result transmitted reference range: 4.30 - 11.10 10*3/?L. The reference range was not used to interpret this result as normal/abnormal. RBC (test code = 789-8) See_Comment L [Automated [employer]] The system which generated this result transmitted reference range: 3.93 - 5.25 10*6/?L. The reference range was not used to interpret this result as normal/abnormal. HGB (test code = 718-7) 11.4 g/dL 11.6-15 L HCT (test code = 4544-3) 33.8 % 35.7-45.2 L MCV (test code = 787-2) 92.6 fL 80.6-95.5 MCH (test code = 785-6) 31.2 pg 25.9-32.8 MCHC (test code = 786-4) 33.7 g/dL 31.6-35.1 RDW-SD (test code = 46492-8) 41.6 fL 39-49.9 RDW-CV (test code = 788-0) 12.3 % 12-15.5 PLT (test code = 777-3) See_Comment [Automated messa ge] The system which generated this result transmitted reference range: 166 - 358 10*3/?L. The reference range was not used to interpret this result as normal/abnormal. MPV (test code = 80331-0) 9.6 fL 9.5-12.9 NRBC/100 WBC (test code = 4269599529) See_Comment [Automated [employer] ssage] The system which generated this result transmitted reference range: 0.0 - 10.0 /100 WBCs. The reference range was not used to interpret this result as normal/abnormal. NRBC x10^3 (test code = 6042643729) <0.01 See_Comment [Automated messa ge] The system which generated this result transmitted reference range: 10*3/?L. The reference range was not used to interpret this result as normal/abnormal. GRAN MAT (NEUT) % (test code = 770-8) 74.3 % IMM GRAN % (test code = 8050195656) 0.40 % LYMPH % (test code = 736-9) 19.4 % MONO % (test code = 5905-5) 3.7 % EOS % (test code = 713-8) 1.8 % BASO % (test code = 706-2) 0.4 % GRAN MAT x10^3(ANC) (test code = 4760555458) 5.87 10*3/uL 1.88-7.09 IMM GRAN x10^3 (test code = 9048986963) 0.03 10*3/uL 0-0.06 LYMPH x10^3 (test code = 731-0) 1.53 10*3/uL 1.32-3.29 MONO x10^3 (test code = 742-7) 0.29 10*3/uL 0.33-0.92 L EOS x10^3 (test code = 711-2) 0.14 10*3/uL 0.03-0.39 BASO x10^3 (test code = 704-7) 0.03 10*3/uL 0.01-0.07 Lab Interpretation (test code = 44233-1) [facility] SPECIFIC GJHISVL9734-49-88 14:15:00* Test Item Value Reference Range Interpretation Comme nts POCT PH U (test code = 3254) n/a 5-8 POCT U LEUK EST (test code = 3263) n/a Negative - N egative POCT U NIT (test code = 3262) n/a Negative - Negati ve POCT U PROT (test code = 3259) neg Negative - Negat chantal POCT U GLU (test code = 3256) neg Negative - Negati ve POCT U KETONE (test code = 3258) n/a Negative - Neg ative POCT U BLD (test code = 3257) n/a Negative - Negati ve [facility] Notes Date/Time Note Provider Source 2023-10-11 11:15:00 0657-31-82I37:15:00F ormatting of this note is different from the original.Images from the original note were not included.Venipuncture collection performed by clean technique on the left anticubitus. Total of 1 attempts were made. Slight pressure and a bandage/dressing were applied to the site(s). The patient experienced no complications. The following specimens were processed according to instructions and sent to [facility] laboratories per lab order on 10/11/2023:LT BLUESST 1REDLAV 2PPTDK GREEN (LiHep)DK GREEN (SodH)GRAYDK BLUE (K2)DK BLUE (S)ACDBlood CultureNIPT/NTD 00387-1Xrhqs VzyeXO4151-09-76W65:10:38Nurse NoteTXT1.2.840.829103.1.13.104.2.7 .2.000628|[id number] for patient cxjm83266-6Okbfp NoteLNNARRATIVEFormatted C-CDA narrative textUTSIERRA [facility]IST[facility] - [address] Oz[id number] 32HWTPPPOCGMHKUCRJRCQICC4193-36-05 T11:10:381.2.840.044274.1.72.3.15| 1.2.840.827045.1.13.104.2.7.2.7278 [id number] [facility] 2023-07-29 09:14:29 1361-85-20F50:14:29F ormatting of this note might be different from the original.Called pt x2 regarding paperwork. Paperwork was faxed on 07.19.23, but is missing patient signature on second page. Called patient to inform, no answer, left message informing paperwork will be left at front office secretary for strip picker.Karina Hamlin MA 07/29/2023 9:16 AM 58314-0Gybgndgug encounter BmyeLH8917-11-52Z88:16:56Telephone encounter NoteTXT1.2.840.498375.1.13.104.2.7 .2.361228|[id number] for patient lggt41974-1QmtkTLPEIWHKQMZJcnzbfui d C-CDA narrative text[address] Ey[id number] 39NYLMHCPRKUMVYDRIASROUV4119-17-51 T09:16:561.2.840.300121.1.72.3.15| 1.2.840.085637.1.13.104.2.7.2.7278 [id number] [facility] 2023-04-23 16:01:19 7545-37-70F40:01:19F ormatting of this note might be different from the original.Spoke to pharmacy. Will change Novolin N to Humulin N with same instructions. Pt advised.MARIA DE JESUS BUSH RN 04/23/2023 4:03 PM 00060-7Kqyjbqtcc encounter ZpsgFF5513-43-03E40:08:12Telephone encounter NoteTXT1.2.840.329803.1.13.104.2.7 .2.573309|[id number] for patient rhcu80813-5NilgYM865607834Xcprjerk h G Cervantes [address]TXTX[address] 62VUFSVDQNTGUSNWQEAYSELF5487-15-54 T16:08:121.2.840.616180.1.72.3.15| 1.2.840.420710.1.13.104.2.7.2.7278 [id number] Maria De Jesusmerle Bush [facility] 2023-04-21 10:00:00 6443-47-86A36:00:00F ormatting of this note might be different from the original.Age: 32 year oldGA: 32w4d 1. High-risk in third trimester- NON-STRESS TEST2. 32 weeks gestation of - POCT URINALYSIS W/O SPECIFIC GRAVITY- NON-STRESS TEST3. Insulin controlled gestational diabetes mellitus (GDM) in third trimester- She just started her insulin last night. She has had problems with insurance coverageCurrently taking 15U of NPH @HSShe forgot to bring in her BS log today-Advised to bring it in next week-NST today reactiveContinue with weekly visit and NST for now- NON-STRESS TEST4. Previous section complicating - opted for ERLTCS with salpingectomyROB in 1 [place] [address]-4Njwhjzbb awqqHD2960-93-39P38:35:31Progress noteTXT1.2.840.461921.1.13.104.2.7 .2.773244|[id number] for patient qply15383-5GddcWRRZKNWGAY[id number] 99VRIERGXOUSJWZEPCTRLJYO3607-88-89 T12:35:311.2.840.019093.1.72.3.15| 1.2.840.683834.1.13.104.2.7.2.7278 [id number] [facility] 2023-04-20 17:04:09 4351-86-99Z30:04:09F ormatting of this note might be different from the original.Spoke with patient, states that Maria De Jesus PAGE called and LM. Forwarding message.Gi Taylor RN 04/20/2023 5:04 PM 03977-6Mobcadszm encounter YwdnNO8201-89-68M95:05:04Telephone encounter NoteTXT1.2.840.480163.1.13.104.2.7 .2.144675|[id number] for patient ifpr70625-5EboxASFRAASXRD[id number] 48WEOBYZHTEVXWIZJRDDNQKC6801-98-48 T17:05:041.2.840.723047.1.72.3.15| 1.2.840.725762.1.13.104.2.7.2.7278 [id number] [facility] 2023-04-20 16:50:54 0598-64-67B65:50:54F ormatting of this note might be different from the original.Pt is returning a call to the clinic in regards to her insulin. 37981-6Jmhzccuka encounter FkrpCD6915-66-08C65:52:52Telephone encounter NoteTXT1.2.840.348473.1.13.104.2.7 .2.000020|[id number] for patient uibu22262-3WobcTT183553734Vgksx C Briggs[address]TXTX[address] 12ANEKGEGTAEUUXLCCDVJOEP3014-29-27 T16:52:521.2.840.932438.1.72.3.15| 1.2.840.273596.1.13.104.2.7.2.7278 [id number] Aidan Cardona [facility] - [facility] 2023-04-07 16:15:00 3781-25-94J85:15:00F ormatting of this note might be different from the original.Images from the original note were not included.Age: 32 year oldGA: 30w4d 1. High-risk in second trimester2. 30 weeks gestation of - No concerns today- PTL precautions and FKC's reviewed with patientMonitor for vaginal bleeding, loss of fluid, and/or contractions- Monitor for symptoms of preeclampsia (headache, visual disturbances, epigastric (under right ribs) pain, and increased blood pressure- If there is a perceived decrease in movement, monitor kick counts. Drink glass of water or juice and rest on left side for approximately two hours. If you feel 10 kicks (movements) over a period of two hours, this is normal. If you do not feel the fetus moving, present to OB clinic or antepartum unit at the [facility]- POCT URINALYSIS W/O SPECIFIC GRAVITY3. Previous section complicating pregnancyERLTCS at 39 with sterilization4. Insulin controlled gestational diabetes mellitus (GDM) in third trimester- BS reviewed. FSBS 13/132hr post BF 08/19, 2hr post lunch 0/122hr post dinner 12/17- reports that the elevated ones post dinner was her trying out meals.But fasting are elevated no matter what she eats- Will start insulin at night 15 units NPH HS - Patient to send me log next week for review- Will start NST @32 weeks- Growth at 34-36 wks. Delivery 38w depending on control JOHNATHAN in 2 weeks [place] [address]-8Oerviyfg iqhfLK3029-08-34W63:46:18Progress noteTXT1.2.840.750908.1.13.104.2.7 .2.244227|[id number] for patient buod29671-5LujjSQIIKDCNHV[id number] 74KOXDXVCLJOGPNRJVSIMSTK3573-96-00 T16:46:181.2.840.575387.1.72.3.15| 1.2.840.597553.1.13.104.2.7.2.7278 [id number] [facility] 2023-04-07 12:00:53 0360-14-25H01:00:53F ormatting of this note might be different from the original.Patient dropped of a dental clearance form that needs to be filled out and faxed back to [facility]. Form filled out, signed by Dr. Alcazar, and faxed to [facility]. Voicemail left for patient informing her of message. Will scan and upload a copy to [employer]. 44674-0Utzjzwkzl encounter TfjpYN9900-74-83Z28:05:43Telephone encounter NoteTXT1.2.840.647728.1.13.104.2.7 .2.319805|[id number] for patient wtqi12223-3YuhvVRQHHEFJRJ[address]TXTX[address] 09XUPOHHNGAMWDSRIHHPIHVN1392-31-67 T12:05:431.2.840.656059.1.72.3.15| 1.2.840.614302.1.13.104.2.7.2.7278 [id number] [facility] 2023-03-24 14:45:00 0609-11-25P48:45:00F ormatting of this note might be different from the original.Age: 32 year oldGA: 28w4d 1. High-risk in second trimester- POCT URINALYSIS W/O SPECIFIC GRAVITY2. 28 weeks gestation of PTL precautions and FKC's reviewed with patientMonitor for vaginal bleeding, loss of fluid, and/or contractions- Monitor for symptoms of preeclampsia (headache, visual disturbances, epigastric (under right ribs) pain, and increased blood pressure- If there is a perceived decrease in movement, monitor kick counts. Drink glass of water or juice and rest on left side for approximately two hours. If you feel 10 kicks (movements) over a period of two hours, this is normal. If you do not feel the fetus moving, present to OB clinic or antepartum unit at the [facility]3. Previous section complicating ERLTCS with bilateral salpingectomy 4. Gestational diabetes mellitus (GDM), antepartum, gestational diabetes method of control unspecifiedReviewed results and explained consistent with diabetes in . The need for adequate glycemic control to prevent macrosomia, polyhydramnios, hypoglycemia, trauma and other possible complications including GHTN, preeclampsia were discussed. A referral has been generated for diabetic teaching/ dietitian. Briefly discussed the recommended diet should be about 40% carbohydrates (more complex than simple carbohydrates), 40% fat, and 20% protein. You should eat 3 meals with 2-3 snacks per day. A moderate exercise is recommended.She understands that she might require medication- oral hypoglycemics or insulin to achieve adequate glycemic control if indicated as JOHNATHAN in 2 [place] [address]-2Nvtkwbng araqTG1524-77-59U83:24:52Progress noteTXT1.2.840.948043.1.13.104.2.7 .2.657532|[id number] for patient gtvc07167-5CwzxIOQBZKQKSI[address] MtejQdicftmftBrecepndjJFZG84052788 49ERQITELDUUZLYZNIFOAJBY4249-62-38 T15:24:521.2.840.417094.1.72.3.15| 1.2.840.693754.1.13.104.2.7.2.7278 [id number] [facility] 2023-03-24 14:45:00 1998-73-35D84:45:00 Addended by: AYDEE MCKEON on: 03/24/2023 03:53 PM Modules accepted: Orders 81685-5Oulckkfg JwhiemqzJF7162-15-02G85:53:39Adden [facility] DocumentTXT1.2.840.970939.1.13.104 .2.7.2.765053|[id number] e for patient coxf62781-3VzbdFVVPYTCAOB[address]TXTX[address] 67YYVPPKAUCBBXKPHLDYBLNN6873-32-28 T15:53:391.2.840.637816.1.72.3.15| 1.2.840.919287.1.13.104.2.7.2.7278 [id number] [facility] 2023-03-24 14:45:00 4344-00-71A47:45:00 Addended by: AYDEE MCKEON on: 03/24/2023 03:57 PM Modules accepted: Orders 45862-8Evhboxar NbfobdqoKZ4062-04-54C75:57:29Adden [facility] DocumentTXT1.2.840.373487.1.13.104 .2.7.2.104410|[id number] e for patient sfwv67745-1EcmfJNVIKSZDDD[address]TXTX[address] 84PTUFEAYQKZFGYEPSKAIXVG5517-16-04 T15:57:291.2.840.037582.1.72.3.15| 1.2.840.029985.1.13.104.2.7.2.7278 [id number] [facility] 2023-03-22 08:00:00 7709-16-07T53:00:00F ormatting of this note is different from the original.Images from the original note were not included.Venipuncture collection performed by clean technique on the left anticubitus. Total of 4 attempts were made. Slight pressure and a bandage/dressing were applied to the site(s). The patient experienced no complications. The following specimens were processed according to instructions and sent to [facility] laboratories per lab order on 03/22/2023 :Given 100gm glucola. LT BLUE SST 4 RED LAV PPT DK GREEN (LiHep) DK GREEN (SodH) SANDOVAL DK BLUE (K2) DK BLUE (S) ACD Blood Culture NIPT/NTD 09925-9Zwqmo EtayGM6696-56-51B41:55:43Nurse NoteTXT1.2.840.050265.1.13.104.2.7 .2.357684|[id number] for patient qewa59676-9Hoceq NoteLNUT[address] YdzmZidonyscqXgtbwzkwzFJET54784518 40HPJSILXFWFDAUDYXNIEWHN1561-28-92 T10:55:431.2.840.960246.1.72.3.15| 1.2.840.470560.1.13.104.2.7.2.7278 [id number] [facility] 2023-03-10 16:00:00 1914-22-62U38:00:00F ormatting of this note might be different from the original.Age: 32 year oldGA: 26w4d JOHNATHAN+FM1. High-risk in second trimester2. 26 weeks gestation of -3rd trimester teaching done- reviewed S/S of PTL (contractions, leakage of fluid and Vaginal bleeding) and also FKC.Also dicussed B-H, pelvic and lower back pains- expectations and differences with S/S of PTLShe plans to breast feedBC options reviewed- SalpingectomyPeds: Dr Mcmahon- POCT URINALYSIS W/O SPECIFIC GRAVITY3. Previous section complicating - ERLTCS after 39 wks4. Anemia of mother in , antepartum- ferrous sulfate (IRON, FERROUS SULFATE,) 325 mg (65 mg iron) tablet; Take 1 tablet by mouth in the morning and 1 tablet in the evening. Dispense: 60 tablet; Refill: 25. Abnormal maternal glucose tolerance, antepartumReviewed results- 3 HR GLUCOSE TOLERANCE PANEL; Future- GLYCOSYLATED HEMOGLOBIN (A1C); Future6. Encounter for sterilization educationI discussed the risks, benefits and alternatives of laparoscopic bilateral Tubal Ligation with patent. Risks discussed included but not limited to infection, bleeding, need for transfusion of blood/blood products, injury to vital organs: bladder, bowel with possible further surgery and VTE She understands that the procedure is permanent, although reversal procedures can be preformed, these procedures are usually not successful and are not covered by most insurances.There is also approximately 30% risk of regret and this risk is higher in women who are younger than 30 years of age. We also discussed the failure rate of about about 0.75%, with an increased risk for ectopic should failure of tubal ligation occur. Alternatives discussed include: Oral Contraceptive Agents, Intrauterine Device, Nexplanon, Depo Provera, Ring, Patch, Condoms/foam, vasectomy of partner, or bilateral salpingectomy. Salpingectomy has been shown to decrease risk of ovarian cancer, similar to tubal ligation; however, no tubal reversal will be able to be done in the future and might be able to achieve with in vitro fertilization only. All questions answered, and patient expressed her desire to proceed with bilateral tubal ligation surgery and has opted for bilateral salpingectomy."JOHNATHAN in 2 weeks [place] [address]-9Npyehxcx zzdbIP7802-28-19J00:37:30Progress noteTXT1.2.840.916787.1.13.104.2.7 .2.494235|[id number] for patient upkw84269-9VbprTBGSSDBTTG[address] VtkqRjskkyshiZbwqgewplAAWB31774515 16UZKJHESPVFWDGHATTNPRKW6373-45-01 T16:37:301.2.840.393681.1.72.3.15| 1.2.840.830644.1.13.104.2.7.2.7278 [id number] [facility] 2023-03-09 09:00:00 2594-69-23Z83:00:00F ormatting of this note might be different from the original.Per PT she fasting for labs. Loaded PT with 50mg of Fruit punch Glucola start 929. 64755-5Icbmt KzhqMZ5875-25-25R31:30:56Nurse NoteTXT1.2.840.095581.1.13.104.2.7 .2.176774|[id number] for patient vqpv89902-6Ljcfu LjfwSI608458264Gmpjtr L [address]TXTX[address] 68RKLONTNMSBNQYXMPFLOXGY0806-07-49 T09:30:561.2.840.216228.1.72.3.15| 1.2.840.109548.1.13.104.2.7.2.7278 [id number] Marina Campos [facility] 2023-03-09 09:00:00 8262-32-29E60:00:00F ormatting of this note might be different from the original.Lab orders Verified By Demetrius Morfin 03/09/2023 9:33 AM 73285-0Lsxlb XhzlRL3822-27-28H47:33:36Nurse NoteTXT1.2.840.840230.1.13.104.2.7 .2.994356|[id number] for patient xqld56539-0Irbbr [address] 39UTKPZEWSAYRJQVGLGLMCJZ0360-97-34 T09:33:361.2.840.349853.1.72.3.15| 1.2.840.343013.1.13.104.2.7.2.7278 [id number] [facility] 2023-03-09 09:00:00 6561-39-42P39:00:00F ormatting of this note is different from the original.Images from the original note were not included.Venipuncture collection performed by clean technique on the left anticubitus. Total of 1 attempts were made. Slight pressure and a bandage/dressing were applied to the site(s). The patient experienced no complications. The following specimens were processed according to instructions and sent to [facility] laboratories per lab order on 03/09/2023 LT BLUE SST 2 RED 1 LAV 2 PPT DK GREEN (LiHep) DK GREEN (SodH) SANDOVAL DK BLUE (K2) DK BLUE (S) ACD Blood Culture NIPT/NTD 60972-8Keaak FdnnKD4596-10-84G68:45:57Nurse NoteTXT1.2.840.129945.1.13.104.2.7 .2.849344|[id number] for patient kogd93746-3Khbic NoteLNUT[address]TXTX[address] 11AFHQJZPDQVBRDZIGPYLYWX8108-68-09 T10:45:571.2.840.878115.1.72.3.15| 1.2.840.856990.1.13.104.2.7.2.7278 [id number] [facility]
[2024-02-04] MEDS ORDERED: NA CHLORIDE 0.9% 1,000 ML ONE (16:42)
[2024-02-04 16:55] LABS: Absolute Eosinophils 0.1 K/uL (0-0.5); Absolute Lymphocytes (CBC) 0.8 K/uL (0.7-4.9); Absolute Monocytes 0.3 K/uL (0.1-1.3); Basophils % 0.4 % (0-1.3); Eosinophils % 1.2 % (0-4.4); Hematocrit 39.5 % (36.0-45.0); Hemoglobin 13.2 g/dL (12.0-15.0); Lymphocytes % 10.9 % (15.3-44.8); MCH 32.8 pg (27.0-35.0); MCHC 33.6 g/dL (32.0-36.0); MCV 97.9 fL (80-100); MPV 7.2 fL (7.6-11.3); Monocytes % 3.9 % (3.3-12.3); Neutrophils % 83.6 % (41.7-73.7); Nucleated Red Blood Cells % 0.2 % (0-0); Platelets 192 thou/uL (152-406); RBC Red Blood Cell Count 4.03 M/uL (3.86-4.86); Red Cell Distribution Width 14.2 % (12.1-15.2)
--- NOTE | 2024-02-04 17:13 | RAD REPORT ---
EXAM DESCRIPTION: Katerin Single View02/04/2024 5:03 pm CLINICAL HISTORY: sob COMPARISON: none FINDINGS: The lungs appear clear of acute infiltrate. The heart is normal size IMPRESSION: No acute abnormalities displayed
[2024-02-04 17:24] LABS: ALT/SGPT 124 U/L (13-56); AST/SGOT 160 U/L (15-37); Albumin 3.5 g/dL (3.4-5.0); Albumin/Globulin Ratio 0.8 (1.1-1.8); Alkaline Phosphatase 124 U/L (45-117); Anion Gap 11.5 mEq/L (5.0-15.0); BUN Blood Urea Nitrogen 6 mg/dL (7-18); Bicarbonate 25 mEq/L (21-32); Bilirubin Direct 0.3 mg/dL (0-0.2); Bilirubin Indirect, Calculated 0.4 mg/dL (0.2-0.8); Bilirubin Total 0.7 mg/dL (0.2-1.0); Globulin 4.6 g/dL (2.3-3.5); Glomerular Filtration Rate 117 ml/min (=/>90); Glucose Level 137 mg/dL (74-106); Magnesium 1.7 mg/dL (1.6-2.4); Potassium 3.5 mEq/L (3.5-5.1); Protein, Total 8.1 g/dL (6.4-8.2); Sodium Level 134 mEq/L (136-145); Troponin High Sensitivity < 3.0 pg/mL (<58.9)
--- NOTE | 2024-02-04 18:02 | ER ---
Nurse's Notes [facility] Name: Cecelia Polk Age: 33 yrs Sex: Female : 1990 Arrival Date: 02/04/2024 Time: 16:10 Bed 5 Private MD: Diagnosis: Muscle spasm Presentation: 02/03 16:27 Chief complaint: EMS states: pt was in a place of business when patient started to al5 experience cramp in forearms, blurred vision, and shortness of breath. Coronavirus screen: Client denies travel out of the [place] in the last 14 days. At this time, the client does not indicate any symptoms associated with coronavirus-19. Ebola Screen: Patient denies exposure to infectious person. Patient denies travel to an Ebola-affected area in the 21 days before illness onset. No symptoms or risks identified at this time. Initial Sepsis Screen: Does the patient meet any 2 criteria? HR > 90 bpm. No. Patient's initial sepsis screen is negative. Does the patient have a suspected source of infection? No. Patient's initial sepsis screen is negative. Risk Assessment: Do you want to hurt yourself or someone else? Patient reports no desire to harm self or others. Onset of symptoms was February 04, 2024. 16:27 Method Of Arrival: EMS: [facility] al5 16:27 Acuity: CRISTOBAL 3 al5 16:31 Care prior to arrival: Medication(s) given: Normal saline infusion, 250 mL IV al5 initiated. 20 GA, in the left antecubital area. Triage Assessment: 16:29 General: Appears in no apparent distress. Behavior is calm, cooperative. Pain: Denies al5 pain. Neuro: No deficits noted. Level of Consciousness is awake, alert, obeys commands, Oriented to person, place, time, situation, Speech is normal, Facial symmetry appears normal. Neuro: Gait is steady. Cardiovascular: No deficits noted. Cardiovascular: Patient's skin is warm and dry. Respiratory: Respiratory: No deficits noted. Airway is patent Trachea midline Respiratory effort is even, unlabored, Respiratory pattern is regular, symmetrical. GI: No deficits noted. No signs and/or symptoms were reported involving the gastrointestinal system. : No deficits noted. No signs and/or symptoms were reported regarding the genitourinary system. Derm: No deficits noted. Skin is intact, is healthy with good turgor, Skin is pink, warm \T\ dry. normal, Skin temperature is warm. Musculoskeletal: No deficits noted. No signs and/or symptoms reported regarding the musculoskeletal system. OCCUPATIONAL THERAPY ASST: 18:04 Not al5 Historical: - Allergies: 16:28 No Known Allergies; al5 - PMHx: 16:28 None; al5 - PSHx: 16:28 section; X2; al5 - Immunization history:: Adult Immunizations up to date. - Infectious Disease History:: Denies. - Social history:: Smoking status: Patient denies any tobacco usage or history of. - Family history:: not pertinent. Screenin:30 [facility] ED Fall Risk Assessment (Adult) History of falling in the last 3 months, al5 including since admission No falls in past 3 months (0 pts) Confusion or Disorientation No (0 pts) Intoxicated or Sedated No (0 pts) Impaired Gait No (0 pts) Mobility Assist Device Used No (0 pt) Altered Elimination No (0 pt) Score/Fall Risk Level 0 - 2 = Low Risk Oriented to surroundings, Maintained a safe environment, Hourly rounding (assess needs \T\ fall precautionary measures) done. Abuse screen: Denies threats or abuse. Denies injuries from another. Nutritional screening: No deficits noted. Tuberculosis screening: No symptoms or risk factors identified. Assessment: 16:30 Reassessment: see triage note.. al5 17:04 Reassessment: Patient appears in no apparent distress at this time. Patient and/or al5 family updated on plan of care and expected duration. Pain level reassessed. Patient is alert, oriented x 3, equal unlabored respirations, skin warm/dry/pink. Patient states feeling better. Patient states symptoms have improved. 18:05 Reassessment: Patient appears in no apparent distress at this time. No changes from al5 previously documented assessment. Patient and/or family updated on plan of care and expected duration. Pain level reassessed. Patient is alert, oriented x 3, equal unlabored respirations, skin warm/dry/pink. Vital Signs: 16:27 BP 150 / 96; Pulse 97; Resp 18; Temp 98.3; Pulse Ox 100% on R/A; Weight 108.86 kg; al5 Height 5 ft. 6 in. ; Pain 0/10; 17:00 BP 138 / 92; Pulse 92; Resp 18; Pulse Ox 100% on R/A; al5 18:06 BP 148 / 93; Pulse 87; Resp 18; Pulse Ox 100% on R/A; al5 16:27 Body Mass Index 38.74 (108.86 kg, 167.64 cm) al5 16:27 Pain Scale: Adult al5 ED Course: 16:22 Patient arrived in ED. al5 16:23 Skip Lucero MD is Attending Physician. rt 16:26 Flower Christianson, RN is Primary Nurse. al5 16:28 Triage completed. al5 16:30 Arm band placed on left wrist. Patient placed in an exam room, on a stretcher, on al5 gambling monitor. 16:31 Patient has correct armband on for positive identification. Bed in low position. Call al5 light in reach. Side rails up X 1. 16:32 Maintain EMS IV. Dressing intact. Good blood return noted. Site clean \T\ dry. Gauge \T\ al 5 site: 20 G LAC. 16:34 No provider procedures requiring assistance completed. al5 16:40 Initial lab(s) drawn, by wv, sent to lab. al5 16:41 Test, Serum Sent. al5 16:41 TSH Sent. al5 16:43 EKG done, by ED staff, reviewed by Flower Christianson RN. mb9 17:05 XRAY Chest (1 view) In Process Unspecified. EDMS 18:04 Provided Education on: discharge education, follow up education.. al5 18:18 IV discontinued, intact, bleeding controlled, No redness/swelling at site. Pressure al5 dressing applied. Administered Medications: 16:46 Drug: NS 0.9% IV 1000 ml IV at 1 bolus Per protocol; 1000 mL bolus Route: IV; Rate: 1 al5 bolus; Site: left antecubital; 18:06 Follow up: Response: No adverse reaction; IV Status: Completed infusion; IV Intake: al5 1000ml Medication: 16:34 VIS not applicable for this client. al5 Intake: 18:06 IV: 1000ml; Total: 1000ml. al5 Outcome: 18:02 Discharge ordered by . rt 18:18 Discharged to home ambulatory, al5 18:18 Condition: good 18:18 Discharge instructions given to patient, Instructed on discharge instructions, follow up and referral plans. Demonstrated understanding of instructions, follow-up care, 18:28 Patient left the ED. al5 Signatures: Dispatcher [employer] Astrid Moreira RN RN mb9 Skip Lucero MD MD rt Flower Christianson RN RN al5
--- NOTE | 2024-02-04 18:02 | EDPHYS ---
Physician Documentation [facility] Name: Cecelia Polk Age: 33 yrs Sex: Female : 1990 Arrival Date: 02/04/2024 Time: 16:10 Bed 5 Private MD: ED Physician Skip Lucero HPI: 02/03 17:19 This 33 yrs old [place] Female presents to ER via EMS with complaints of Dehydration- rt crampy forearms, blurred vision, SOB. 17:19 Patient presents to the ED with cramping, muscle spasms to the bilateral forearms rt starting an hour prior to arrival. She had associated shortness of breath. Patient states that the symptoms have mostly resolved, only reports mild tremors currently. Denies other acute complaints at this time, symptoms are moderate in severity, no other aggravating or alleviating factors.. CERTIFIED HAND THERAPIST: 18:04 Not al5 Historical: - Allergies: 16:28 No Known Allergies; al5 - PMHx: 16:28 None; al5 - PSHx: 16:28 section; X2; al5 - Immunization history:: Adult Immunizations up to date. - Infectious Disease History:: Denies. - Social history:: Smoking status: Patient denies any tobacco usage or history of. - Family history:: not pertinent. ROS: 17:19 Constitutional: Negative for fever, chills, and weight loss, Cardiovascular: Negative rt for chest pain, palpitations, and edema, Abdomen/GI: Negative for abdominal pain, nausea, vomiting, diarrhea, and constipation, MS/Extremity: Negative for injury and deformity, Skin: Negative for injury, rash, and discoloration, 17:19 Respiratory: Positive for shortness of breath, Negative for cough, 17:19 Neuro: Positive for Spasms, trauma, Exam: 17:19 Constitutional: This is a well developed, well nourished patient who is awake, alert, rt and in no acute distress. Head/Face: Normocephalic, atraumatic. Chest/axilla: Normal chest wall appearance and motion. Nontender with no deformity. No lesions are appreciated. Cardiovascular: Regular rate and rhythm with a normal S1 and S2. No gallops, murmurs, or rubs. Normal PMI, no JVD. No pulse deficits. Respiratory: Lungs have equal breath sounds bilaterally, clear to auscultation and percussion. No rales, rhonchi or wheezes noted. No increased work of breathing, no retractions or nasal flaring. Abdomen/GI: Soft, non-tender, with normal bowel sounds. No distension or tympany. No guarding or rebound. No evidence of tenderness throughout. Skin: Warm, dry with normal turgor. Normal color with no rashes, no lesions, and no evidence of cellulitis. MS/ Extremity: Pulses equal, no cyanosis. Neurovascular intact. Full, normal range of motion. Neuro: Awake and alert, GCS 15, oriented to person, place, time, and situation. Cranial nerves II-XII grossly intact. Motor strength 5/5 in all extremities. Sensory grossly intact. Cerebellar exam normal. Normal gait. 17:19 ECG was reviewed by the Attending Physician. 17:19 Neuro: Slight tremors noted to bilateral upper extremities, cranial nerves II through XII intact, strength and sensation intact in upper and lower extremities., Vital Signs: 16:27 BP 150 / 96; Pulse 97; Resp 18; Temp 98.3; Pulse Ox 100% on R/A; Weight 108.86 kg; al5 Height 5 ft. 6 in. ; Pain 0/10; 17:00 BP 138 / 92; Pulse 92; Resp 18; Pulse Ox 100% on R/A; al5 18:06 BP 148 / 93; Pulse 87; Resp 18; Pulse Ox 100% on R/A; al5 16:27 Body Mass Index 38.74 (108.86 kg, 167.64 cm) al5 16:27 Pain Scale: Adult al5 MDM: 16:25 Patient medically screened. rt 18:02 Differential Diagnosis Altered extremities, dysrhythmia, dehydration. Data reviewed: rt vital signs, nurses notes, lab test result(s), EKG. Consideration of Admission/Observation Escalation of care including admission/observation considered. Patient with elevated transaminases, otherwise unremarkable workup. Patient states that she has been drinking heavily for the past week due to her being on vacation, instructed patient to follow-up with primary for recheck of liver enzymes. . I considered the following discharge prescriptions or medication management in the emergency department Medications were administered in the Emergency Department. See MAR. Counseling: I had a detailed discussion with the patient and/or guardian regarding the historical points, exam findings, and any diagnostic results supporting the discharge/admit diagnosis, lab results, the need for outpatient follow up, to return to the emergency department if symptoms worsen or persist or if there are any questions or concerns that arise at home. Response to treatment: the patient's symptoms have markedly improved after treatment. 02/03 16:30 Order name: Basic Metabolic Panel; Complete Time: 17:54 rt 02/03 16:30 Order name: CBC with Diff; Complete Time: 17:17 rt 02/03 16:30 Order name: LFT's; Complete Time: 17:54 rt 02/03 16:30 Order name: Magnesium; Complete Time: 17:54 rt 02/03 16:30 Order name: Troponin HS; Complete Time: 17:54 rt 02/03 16:30 Order name: TSH; Complete Time: 17:54 rt 02/03 16:30 Order name: Test, Serum; Complete Time: 17:26 rt 02/03 17:27 Order name: T4 Free; Complete Time: 17:54 EDMS 02/03 16:30 Order name: XRAY Chest (1 view); Complete Time: 17:17 rt 02/03 16:30 Order name: Cardiac monitoring; Complete Time: 16:42 rt 02/03 16:30 Order name: EKG - Nurse/Tech; Complete Time: 16:42 rt 02/03 16:30 Order name: IV Saline Lock; Complete Time: 18:07 rt 02/03 16:30 Order name: Labs collected and sent; Complete Time: 18:07 rt 02/03 16:30 Order name: O2 Per Protocol; Complete Time: 18:07 rt 02/03 16:30 Order name: O2 Sat Monitoring; Complete Time: 18:07 rt EC:19 Rate is 94 beats/min. Rhythm is regular, Normal Sinus Rhythm with No ectopy. QRS [place] rt is Normal. FL interval is normal. QRS interval is normal. QT interval is normal. No Q waves. T waves are Normal. No ST changes noted. Interpreted by me. Administered Medications: 16:46 Drug: NS 0.9% IV 1000 ml IV at 1 bolus Per protocol; 1000 mL bolus Route: IV; Rate: 1 al5 bolus; Site: left antecubital; 18:06 Follow up: Response: No adverse reaction; IV Status: Completed infusion; IV Intake: al5 1000ml Disposition Summary: 02/04/24 18:02 Discharge Ordered Notes: Location: Home rt Problem: new rt Symptoms: have improved rt Condition: Stable rt Diagnosis - Muscle spasm rt Followup: rt - With: Private Physician - When: 2 - 3 days - Reason: Discharge Instructions: - Discharge Summary Sheet rt - Muscle Cramps and Spasms rt Forms: - Medication Reconciliation Form rt - Antibiotic Education rt - Prescription Opioid Use rt - Patient Portal Instructions rt - Leadership Thank You Letter rt Signatures: Dispatcher [employer] Skip Damon MD MD rt Flower Christianson RN RN al5
[2024-02-04 18:56] VITALS: TEMP 98.3; O2SAT 100
[2024-02-04 19:17] VITALS: BP 148/93
--- NOTE | 2024-02-07 14:22 | EKG ---
Test Date: 2024-02-04 Test Time: 16:41:09 Bottle Assembler: MB MEASUREMENT RESULTS: Intervals: Rate: 94 WI: 146 QRSD: 72 QT: 364 QTc: 455 [place]: P: 47 WI: 146 QRS: 88 T: 14 INTERPRETIVE STATEMENTS: Normal sinus rhythm Normal ECG No previous ECG available for comparison Electronically Signed On 02-07-24 14:16:26 CDT by Honorio Richmond
== END 2024-02-04 18:28 | disposition home or self-care (01) ==
LOC: ER 16:10
DX: M62.838 Other muscle spasm (principal)
CPT/HCPCS: 85025; 80048; 36415; 83735; 84703; 80076; 84443; 84484; 84439; 71045; 96360; 99284; J7030; 93005

== ENCOUNTER 2024-06-20 03:18 | Observation (INO) | payer OTHER ==
--- OUTSIDE RECORDS SUMMARY | 2024-06-20 03:24 | XMS REPORT | Continuity of Care Document ---
Author Name Unknown Address [address] [facility] [address] [place] [address] [facility] [address] [facility] [address] [place] [address] Care Team Providers Care Web Content Executive Name Role Phone Blanca Doss MD Primary Care Physician + [phone] DOLORES ALCAZAR Attending Clinician Unavailable BLANCA DOSS Attending Clinician Unavailab BLANCA Patterson Attending Clinician Unavailab le Doctor Unassigned, [facility] Attending Clinician U navailable 2, [facility] Attending Clinician Unavailable Dolores Alcazar MD Attending Clinician [phone] Nurse, [facility] Attending Clinician Un available Odette Rene MD Attending Clinician [phone] Sreekanth Jhaveri MD Attending Clinician Pob, [facility] Main Attending Clinician Unavailabl e Room, [facility] Attending Clinician Unavailable 1, [facility] Room Attending Clinician Unavailable Gi Vance MD Attending Clinician [phone] GI VANCE Attending Clinician Unavailable GI VANCE Attending Clinician Unavailable Ultrasound, Ang-Mfm Attending Clinician Unavaila ble Lab, Ang - Db Attending Clinician Unavailable Nurse, [facility] Attending Clinician Unavailable Heath Gallo DO Attending Clinician [phone] HEATH GALLO Attending Clinician Unavailable EUGENE RICCI Attending Clinician Unavailable KAYLEEN SCHAEFER Attending Clinician Unavailable Kindra Griggs MD Attending Clinician [phone] Eugene Ricci PA-C Attending Clinician [phone] KINDRA GRIGGS Attending Clinician Unavailable Only, [facility] Test Attending Clinician Unavailable Ultrasound, [facility] Mfm Attending Clinician Unavaila ble Lab, [facility] Fam Pob I Attending Clinician Unavailab le Anene BUHR MILL OPERATOR, Estephania Attending Clinician [phone] Jatinder Yeh MD Attending Clinician [phone] DOLORES ALCAZAR Admitting Clinician Unavailable Dolores Alcazar MD Admitting Clinician [phone] Kindra Griggs MD Admitting Clinician [phone] KINDRA GRIGGS Admitting Clinician Unavailable Payers Payer Name Policy Type Policy Number Effective Date Expirati on Date Source [facility] [id number] 2022 00:00:00 [facility] [id number] 2022 00:00:00 Problems Condition Name Condition Details Condition Category Status Onset Date Resolution Date Last Treatment Date Treating Clinician Comments Source Liveborn , of lackey , born in hospital by delivery Liveborn infant, of lackey , born in hospital by delivery Disease Active 2022-08 00:00: 00 [facility] Encounter for female sterilizat ion procedure Encounter for female sterilizat ion procedure Disease Active 2022-08 00:00: 00 [facility] Polyhydram nios, antepartum , single or unspecifie d fetus Polyhydram nios, antepartum , single or unspecifie d fetus Disease Active 2022-08 00:00: 00 [facility] Excessive growth affecting , antepartum , single or unspecifie d fetus Excessive growth affecting , antepartum , single or unspecifie d fetus Disease Active 2022-08 0 00:00: 00 [facility] High-risk in third trimester High-risk in third trimester Disease Active 2023-0 9-27 00:00: 00 [facility] 34 weeks gestation of 34 weeks gestation of Disease Active 0 9-27 00:00: 00 [facility] 36 weeks gestation of 36 weeks gestation of Disease Active 0 9-27 00:00: 00 [facility] 37 weeks gestation of 37 weeks gestation of Disease Active 0 9-27 00:00: 00 [facility] Insulin controlled gestationa l diabetes mellitus (GDM) in third trimester Insulin controlled gestationa l diabetes mellitus (GDM) in third trimester Disease Active 0 8-30 00:00: 00 [facility] Previous section complicati ng Previous section complicati ng Disease Active 0 3-21 00:00: 00 [facility] High-risk in first trimester High-risk in first trimester Disease Active 0 3-21 00:00: 00 [facility] 7 weeks gestation of 7 weeks gestation of Disease Active 0 3-21 00:00: 00 [facility] 39 weeks gestation of 39 weeks gestation of Disease Active 1 0-26 00:00: 00 [facility] Liveborn , of lackey , born in hospital by delivery Liveborn , of lackey , born in hospital by delivery Disease Active 2019-08 0-26 00:00: 00 [facility] Morbid obesity with body mass index of 40.0-49.9 Morbid obesity with body mass index of 40.0-49.9 Disease Active 0 8-28 00:00: 00 [facility] Obesity (BMI 30-39.9) Obesity (BMI 30-39.9) Disease Active 0 4-20 00:00: 00 [facility] Mild intermitte nt asthma without complicati on Mild intermitte nt asthma without complicati on Disease Active 0 4-20 00:00: 00 [facility] Supervisio n of other normal Supervisio n of other normal Disease Active 0 4-20 00:00: 00 [facility] Previous section Previous section Disease Active 11-26 00:00: 00 [facility] Allergies, Adverse Reactions, Alerts Allergy Name Allergy Type Status Severity Reaction(s) Onset Date Inactive Date Treating Clinician Comments Source NO KNOWN ALLERGIE S Drug Class Active [facility] Social History Social Habit Start Date Stop Date Quantity Comments Source ASSERTION 2022-09-19 00:00:00 [facility] Alcohol intake 2023-10-11 00:00:00 2023-10-11 00:00:00 Ex-drinker (finding) [facility] History of Social function 2023-10-11 00:00:00 2023-10-11 00:00:00 [facility] Exposure to SARS-CoV-2 (event) 2023-01-09 00:00:00 2023-01-19 11:04:00 Not sure [facility] Tobacco use and exposure 2022-10-27 00:00:00 2022-10-27 00:00:00 Smokeless tobacco non-user [facility] Sex Assigned At 1990 00:00:00 1990 00:00:00 [facility] Smoking Status Start Date Stop Date Source Never smoked tobacco [facility] Medications Ordered Medication Name Filled Medication Name Start Date Stop Date Current Medication? Ordering Clinician Indication Dosage Frequency Signature (SIG) Comments Components Source losartan 25 mg tablet 10-10 00:00: 00 Yes [id number] 25mg Take 1 tablet by mouth in the morning. [facility] ibuprofen (IBU) tablet 600 mg 2022-08 17:00: 00 Yes 600mg 600 mg, Oral, Q6H, First dose on Wed05/26/23 at 1200, Until Discontinu ed, Routine [facility] vit no.124/iron /folic ( VITAMIN ORAL) 2022-08 11:26: 39 05-26 00:00 :00 No Take by mouth. [facility] HYDROcodone -acetaminop hen (NORCO 5) 5-325 mg tablet 1 tablet 2022-08 02:00: 00 Yes 1{tbl} 1 tablet, Oral, Q6HPRN, Starting on Wed05/25/23 at 2100, Until Discontinu ed, Routine, Pain (scale 4-6), Alternate with Ibuprofen [facility] HYDROcodone -acetaminop hen (NORCO 5) 5-325 mg tablet 2 tablet 2022-08 02:00: 00 Yes 2{tbl} 2 tablet, Oral, Q6HPRN, Starting on Wed05/25/23 at 2100, Until Discontinu ed, Routine, Pain (scale 7-10), Alternate with Ibuprofen [facility] vitamin w/FA tablet 2022-08 00:00: 00 Yes [id number] 1{tbl} Take 1 tablet by mouth in the morning. [facility] ibuprofen 600 mg tablet 2022-08 00:00: 00 06-22 00:00 :00 No [id number] 600mg Take 1 tablet by mouth every 6 (six) hours. [facility] gabapentin 300 mg capsule 2022-08 00:00: 00 06-22 00:00 :00 No [id number] 300mg Take 1 capsule by mouth in the morning and 1 capsule at noon and 1 capsule in the evening. [facility] HYDROcodone -acetaminop hen 5-325 mg tablet 2022-08 00:00: 00 06-03 04:59 :00 No [id number] 1{tbl} Take 1 tablet by mouth every 6 (six) hours as needed for Pain (scale 4-6) (Alternate with Ibuprofen) for up to 7 days. Indication s: acute pain [facility] acetaminoph en ADULT (OFIRMEV) injection 1,000 mg 2022-08 20:00: 00 05-25 21:17 :00 No 1000mg 1,000 mg, IV Infusion, at 400 mL/hr Administer over 15 Minutes, ONCE, 1 dose, On Wed05/25/23 at 1500, Routine
Indicatio n: Perioperat chantal Patient [facility] gabapentin (NEURONTIN) capsule 300 mg 2022-08 19:00: 00 Yes 300mg 300 mg, Oral, TID, First dose on Wed05/25/23 at 1400, Until Discontinu ed, Routine [facility] ketorolac (TORADOL) injection 30 mg 2022-08 17:00: 00 05-26 11:07 :00 No 30mg 30 mg, Slow IV Push, Q6H, 4 doses, First dose on Wed05/25/23 at 1200, Last dose on Wed05/26/23 at 0600, Routine [facility] lactated ringers IV infusion 1,000 mL 2022-08 15:45: 00 05-25 16:56 :44 No 1000mL at 125 mL/hr, 1,000 mL, IV Infusion, ONCE, 1 dose, On Wed05/25/23 at 1045, Routine [facility] diphenhydrA MINE (BENADRYL) injection 25 mg 2022-08 14:50: 30 Yes 25mg 25 mg, Slow IV Push, Q6HPRN, Starting on Wed05/25/23 at 0950, Until Discontinu ed, Routine, Itching [facility] diphenhydrA MINE (BENADRYL) tablet 25 mg 2022-08 14:50: 30 Yes 25mg 25 mg, Oral, Q6HPRN, Starting on Wed05/25/23 at 0950, Until Discontinu ed, Routine, Sleep, Itching [facility] ondansetron (ZOFRAN (PF)) injection 4 mg 2022-08 14:50: 30 Yes 4mg 4 mg, Slow IV Push, Q8HPRN, Starting on Wed05/25/23 at 0950, Until Discontinu ed, Routine, Nausea and Vomiting (N/V) [facility] bisacodyL (DULCOLAX) suppository 10 mg 2022-08 14:50: 30 Yes 10mg 10 mg, Rectal, QDAILYPRN, Starting on Wed05/25/23 at 0950, Until Discontinu ed, Routine, Constipati on [facility] simethicone (GAS RELIEF (SIMETHICON E)) chewable tablet 160 mg 2022-08 14:50: 30 Yes 160mg 160 mg, Oral, PC+HSPRN, Starting on Wed05/25/23 at 0950, Until Discontinu ed, Routine, Gas [facility] docusate (COLACE) capsule 200 mg 2022-08 14:50: 30 Yes 200mg 200 mg, Oral, QDAILYPRN, Starting on Wed05/25/23 at 0950, Until Discontinu ed, Routine, Constipati on [facility] magnesium hydroxide (MILK OF MAGNESIA) 400 mg/5 mL suspension 30 mL 2022-08 14:50: 30 Yes 30mL 30 mL, Oral, QDAILYPRN, Starting on Wed05/25/23 at 0950, Until Discontinu ed, Routine, Constipati on [facility] lactated ringers IV infusion 1,000 mL 2022-08 14:50: 30 Yes 1000mL at 125 mL/hr, 1,000 mL, IV Infusion, PRN, 1 dose, Starting on Wed05/25/23 at 0950, Until Discontinu ed, Routine [facility] acetaminoph en ADULT (OFIRMEV) injection 2022-08 13:59: 00 05-25 14:50 :13 No IV Infusion, Administer over 15 Minutes, ONCE INTRA PROCEDURE, Starting on Wed05/25/23 at 0859, Until Wed05/25/23 at 0950, Routine, Intra-op [facility] oxytocin (PITOCIN) 30 units in NS 500 mL IV infusion 2022-08 13:51: 00 05-25 14:50 :13 No IV Infusion, CONTINUOUS PRN, Starting on Wed05/25/23 at 0851, Until Wed05/25/23 at 0950, Routine, Intra-op [facility] NaCl 0.9% (NS) IV infusion 2022-08 13:50: 00 05-25 14:50 :13 No IV Infusion, CONTINUOUS PRN, Starting on Wed05/25/23 at 0850, Until Wed05/25/23 at 0950, Routine, [facility] chloride 0.9 % irrigation solution 2022-08 13:35: 00 Yes PRN, Starting on Wed05/25/23 at 0835, Until Discontinu ed, Intra-op [facility] ondansetron (ZOFRAN (PF)) injection 2022-08 13:26: 00 05-25 14:50 :13 No Slow IV Push, ONCE INTRA PROCEDURE, Starting on Wed05/25/23 at 0826, Until Wed05/25/23 at 0950, Routine, Intra-op [facility] PHENYLephri ne 1000 mcg/10 mL in 0.9% NaCl syringe 2022-08 13:18: 00 05-25 14:50 :13 No Intravenou s, CONTINUOUS PRN, Starting on Wed05/25/23 at 0818, Until Wed05/25/23 at 0950, Routine, Intra-op Univers [facility] ePHEDrine 25 mg/5 mL (5 mg/mL) syringe 2022-08 13:16: 00 05-25 14:50 :13 No Intravenou s, ONCE INTRA PROCEDURE, Starting on Wed05/25/23 at 0816, Until Wed05/25/23 at 0950, Routine, Intra-op Univers [facility] morpHINE PF (DURAMORPH- PF) injection 2022-08 13:15: 00 05-25 14:50 :13 No Epidural, ONCE INTRA PROCEDURE, Starting on Wed05/25/23 at 0815, Until Wed05/25/23 at 0950, Routine, [facility] bupivacaine -dextrose-w ater-pf (MARCAINE SPINAL (PF)) 0.75 % (7.5 mg/mL) injection 2022-08 13:15: 00 05-25 14:50 :13 No Intraspina l, ONCE INTRA PROCEDURE, Starting on Wed05/25/23 at 0815, Until Wed05/25/23 at 0950, Routine, Intra-op [facility] ceFAZolin (ANCEF) injection 2022-08 13:09: 00 05-25 14:50 :13 No IV Piggyback, ONCE INTRA PROCEDURE, Starting on Wed05/25/23 at 0809, Until Wed05/25/23 at 0950, DARIA, Intra-op [facility] lactated ringers IV infusion 2022-08 13:05: 00 05-25 14:50 :13 No IV Infusion, CONTINUOUS PRN, Starting on Wed05/25/23 at 0805, Until Wed05/25/23 at 0950, Routine, Intra-op [facility] acetaminoph en (TYLENOL) tablet 650 mg 2022-08 11:15: 00 05-25 12:30 :00 No 650mg 650 mg, Oral, ONCE, 1 dose, On Wed05/25/23 at 0615, Routine [facility] lactated ringers IV infusion 1,000 mL 2022-08 11:15: 00 05-25 14:59 :09 No 1000mL at 125 mL/hr, 1,000 mL, IV Infusion, CONTINUOUS , Starting on Wed05/25/23 at 0615, Until Wed05/25/23 at 0959, Routine [facility] lactated ringers IV infusion 500 mL 2022-08 11:15: 00 05-25 12:52 :00 No 500mL at 999 mL/hr, 500 mL, IV Infusion, ONCE, 1 dose, On Wed05/25/23 at 0615, Routine [facility] sodium citrate-cit rach acid (BICITRA) 500-334 mg/5 mL solution 30 mL 2022-08 11:02: 54 05-25 12:52 :00 No 30mL 30 mL, Oral, PRE-PROCED URE ONCE, 1 dose, Starting on Wed05/25/23 at 0602, Until [place] 05/27/23 at 2359, Routine, Surgery/Pr ocedure [facility] vit no.124/iron /folic ( VITAMIN ORAL) 2023-1 0-17 05:57: 56 Yes Take by mouth. [facility] ACCU-CHEK SOFTCLIX LANCETS [facility] 9-10 00:00: 00 05-26 00:00 :00 No [facility] Insulin Syringes, Disposable, 1 mL Syrg 830 00:00: 00 05-26 00:00 :00 No Use as directed [facility] insulin NPH (NOVOLIN N NPH U-100 INSULIN) 100 unit/mL injection 30 00:00: 00 05-26 00:00 :00 No Inject 15 units subcutaneo usly every night at 10 pm. [facility] BD VEO INSULIN SYRINGE UF 1 mL 31 gauge x 15/64" Syrg 04-07 00:00: 00 05-26 00:00 :00 No 10mg Take 10 mg by mouth. [facility] Blood-Gluco se Meter (ACCU-CHEK GUIDE GLUCOSE METER) [facility] 816 00:00: 00 05-26 00:00 :00 No Check blood sugar 4 times a day [facility] lancets [address] [facility] 16 00:00: 00 05-26 00:00 :00 No Check blood sugar 4 times a day [facility] blood sugar diagnostic (ACCU-CHEK GUIDE TEST STRIPS) strip 03-24 00:00: 00 05-26 00:00 :00 No Check blood glucose 4 times a day [facility] Alcohol Swabs (ALCOHOL WIPES) PadM 16 00:00: 00 05-26 00:00 :00 No Apply to area(s) 4 (four) times daily. [facility] ferrous sulfate (IRON, FERROUS SULFATE,) 325 mg (65 mg iron) tablet 02 00:00: 00 06-22 00:00 :00 No [id number] 325mg Take 1 tablet by mouth in the morning and 1 tablet in the evening. [facility] vit no.124/iron /folic ( VITAMIN ORAL) 19 11:20: 25 Yes Take by mouth. [facility] norethindro ne 0.35 mg tablet 2019-08 00:00: 00 10-29 00:00 :00 No [id number] 1{tbl} Take 1 tablet by mouth daily. [facility] ibuprofen (IBU) tablet 600 mg 2019-08 05:00: 00 Yes 600mg 600 mg, Oral, Q6H ABX, First dose on Wed06/05/20 at 0000, Until Discontinu ed, Routine [facility] PNV 102-iron-fo late 1-dss-dha 90 mg iron-1 mg -50 mg-200 mg Cap 2019-08 15:53: 17 06-04 00:00 :00 No Take by mouth. [facility] HYDROcodone -acetaminop hen (NORCO 5) 5-325 mg tablet 1 tablet 2019-08 15:49: 16 Yes 1{tbl} 1 tablet, Oral, Q6HPRN, Starting Wed06/04/20 at 1049, Until Discontinu ed, Routine, Pain (scale 7-10) [facility] acetaminoph en (TYLENOL) tablet 650 mg 2019-08 13:45: 00 Yes 650mg 650 mg, Oral, Q6H ABX, First dose on Wed06/04/20 at 0845, Until Discontinu ed, Routine [facility] ketorolac (TORADOL) injection 30 mg 2019-08 05:00: 00 06-04 22:40 :00 No 30mg 30 mg, Slow IV Push, Q6H ABX, 4 doses, First dose on Wed06/04/20 at 0000, Last dose on Wed06/04/20 at 1800, Routine
architecture faculty member approving Restricted medication : KINDRA GRIGGS [facility] gabapentin (NEURONTIN) capsule 300 mg 2019-08 03:00: 00 Yes 300mg 300 mg, Oral, Q8H, First dose (after last modificati on) on Wed06/03/20 at 2200, Until Discontinu ed, Routine [facility] acetaminoph en 325 mg tablet 2019-08 00:00: 10-29 00:00 :00 No [id number] 650mg Take 2 tablets by mouth every 6 (six) hours as needed for Pain (scale 1-3) or Pain (scale 4-6). [facility] vitamin w/FA tablet 2019-08 00:00: 10-29 00:00 :00 No [id number] 1{tbl} Take 1 tablet by mouth daily. [facility] ferrous sulfate 325 mg (65 mg iron) tablet 2019-08 00:00: 10-29 00:00 :00 No [id number] 325mg Take 1 tablet by mouth 2 (two) times daily. [facility] ibuprofen 600 mg tablet 2019-08 00:00: 10-29 00:00 :00 No [id number] 600mg Take 1 tablet by mouth every 6 (six) hours as needed for Pain (scale 1-3) or Pain (scale 4-6) (Pain). Take with food or milk. [facility] docusate calcium 240 mg capsule 2019-08 00:00: 00 07-02 00:00 :00 No [id number] 240mg Take 1 capsule by mouth once daily as needed for Constipati on. [facility] HYDROcodone -acetaminop hen 5-325 mg tablet 2019-08 00:00: 00 06-12 05:59 :00 No [id number] 1{tbl} Take 1 tablet by mouth every 6 (six) hours as needed for Pain (scale 7-10) for up to 7 days. Indication s: acute pain [facility] gabapentin 300 mg capsule 2019-08 00:00: 00 06-10 05:59 :00 No [id number] 300mg Take 1 capsule by mouth every 8 (eight) hours for 5 days. [facility] acetaminoph en ADULT (OFIRMEV) injection 1,000 mg 2019-08 19:45: 00 06-03 19:59 :00 No 1000mg 1,000 mg, IV Infusion, Administer over 15 Minutes, ONCE, 1 dose, Wed06/03/20 at 1445, Routine, PACU
In dication: Perioperat chantal Patient [facility] gabapentin (NEURONTIN) capsule 300 mg 2019-08 19:00: 00 06-03 22:40 :54 No 300mg 300 mg, Oral, TID, First dose on Wed06/03/20 at 1400, Until Discontinu ed, Routine [facility] simethicone (GAS RELIEF (SIMETHICON E)) chewable tablet 160 mg 2019-08 18:00: 00 Yes 160mg 160 mg, Oral, PC+HS, First dose on Wed06/03/20 at 1300, Until Discontinu ed, Routine [facility] lactated ringers IV infusion 1,000 mL 2019-08 16:30: 00 Yes 1000mL at 75 mL/hr, 1,000 mL, IV Infusion, CONTINUOUS , Starting Wed06/03/20 at 1130, Until Discontinu ed, Routine, PACU [facility] rho(D) immune globulin (RHOGAM) syringe 300 mcg 2019-08 16:25: 26 Yes 300ug 300 mcg, Intramuscu lar, ONCE, For 1 dose, Conditiona l, Routine [facility] ondansetron (ZOFRAN (PF)) injection 4 mg 2019-08 16:25: 13 Yes 4mg 4 mg, Slow IV Push, Q8HPRN, Starting Wed06/03/20 at 1125, Until Discontinu ed, Routine, Nausea and Vomiting (N/V) [facility] magnesium hydroxide (MILK OF MAGNESIA) 400 mg/5 mL suspension 30 mL 2019-08 16:25: 13 Yes 30mL 30 mL, Oral, QDAILYPRN, Starting Wed06/03/20 at 1125, Until Discontinu ed, Routine, Constipati on [facility] diphenhydrA MINE (BENADRYL) tablet 25 mg 2019-08 16:25: 12 Yes 25mg 25 mg, Oral, Q6HPRN, Starting Wed06/03/20 at 1125, Until Discontinu ed, Routine, Sleep, Itching [facility] bisacodyL (DULCOLAX) suppository 10 mg 2019-08 16:25: 12 Yes 10mg 10 mg, Rectal, QDAILYPRN, Starting Wed06/03/20 at 1125, Until Discontinu ed, Routine, Constipati on [facility] docusate calcium (SURFAK) capsule 240 mg 2019-08 16:25: 12 Yes 240mg 240 mg, Oral, QDAILYPRN, Starting Wed06/03/20 at 1125, Until Discontinu ed, Routine, Constipati on [facility] ondansetron (ZOFRAN (PF)) injection 4 mg 2019-08 16:24: 51 Yes 4mg 4 mg, Slow IV Push, PRN, 1 dose, Starting Wed06/03/20 at 1124, Until Discontinu ed, Routine, Nausea and Vomiting (N/V), PACU [facility] mupirocin (BACTROBAN OINT) 2 % skin ointment 2019-08 14:20: 00 Yes Intra-op [facility] lactated ringers IV infusion 500 mL 2019-08 13:30: 00 06-03 12:37 :00 No 500mL at 999 mL/hr, 500 mL, IV Infusion, ONCE, 1 dose, Wed06/03/20 at 0830, Routine [facility] sodium chloride 0.9 % irrigation solution 2019-08 13:28: 00 Yes PRN, Starting Wed06/03/20 at 0828, Until Discontinu ed, Intra-op [facility] sodium citrate-cit rach acid (BICITRA) 500-334 mg/5 mL solution 30 mL 2019-08 12:23: 52 06-03 12:36 :00 No 30mL 30 mL, Oral, PRE-PROCED URE ONCE, 1 dose, Starting Wed06/03/20 at 0723, Until Wed06/03/20 at 0736, Routine, Surgery [facility] PNV 102-iron-fo late 1-dss-dha 90 mg iron-1 mg -50 mg-200 mg Cap 11-26 14:01: 37 Yes Take by mouth. [facility] albuterol 90 mcg/actuati on inhaler 11-26 00:00: 00 06-04 00:00 :00 No [id number] 2{puff} Inhale 2 Puffs every 6 (six) hours as needed for Wheezing, Shortness of Breath, Bronchospa sm or Chest tightness. [facility] Immunizations Ordered Immunization Name Filled Immunization Name Date Status Comments Source TDAP 2023-03-24 00:00:00 Completed [facility] TDAP 2023-03-24 00:00:00 Completed [facility] TDAP 2023-03-24 00:00:00 Completed [facility] TDAP 2023-03-24 00:00:00 Completed [facility] TDAP 2023-03-24 00:00:00 Completed [facility] TDAP 2023-03-24 00:00:00 Completed [facility] TDAP 2023-03-24 00:00:00 Completed [facility] SARS-COV-2 COVID-19 PFIZER VACCINE 2020-12-07 00:00:00 Completed [facility] SARS-COV-2 COVID-19 PFIZER VACCINE 2020-12-07 00:00:00 Completed [facility] SARS-COV-2 COVID-19 PFIZER VACCINE 2020-12-07 00:00:00 Completed [facility] SARS-COV-2 COVID-19 PFIZER VACCINE 2020-12-07 00:00:00 Completed [facility] SARS-COV-2 COVID-19 PFIZER VACCINE 2020-12-07 00:00:00 Completed [facility] SARS-COV-2 COVID-19 PFIZER VACCINE 2020-12-07 00:00:00 Completed [facility] SARS-COV-2 COVID-19 PFIZER VACCINE 2020-12-07 00:00:00 Completed [facility] SARS-COV-2 COVID-19 PFIZER VACCINE 2020-12-07 00:00:00 Completed [facility] SARS-COV-2 COVID-19 PFIZER VACCINE 2020-12-07 00:00:00 Completed [facility] SARS-COV-2 COVID-19 PFIZER VACCINE 2020-12-07 00:00:00 Completed [facility] SARS-COV-2 COVID-19 PFIZER VACCINE 2020-12-07 00:00:00 Completed [facility] SARS-COV-2 COVID-19 PFIZER VACCINE 2020-12-07 00:00:00 Completed [facility] SARS-COV-2 COVID-19 PFIZER VACCINE 2020-12-07 00:00:00 Completed [facility] SARS-COV-2 COVID-19 PFIZER VACCINE 2020-12-07 00:00:00 Completed [facility] SARS-COV-2 COVID-19 PFIZER VACCINE 2020-12-07 00:00:00 Completed [facility] SARS-COV-2 COVID-19 PFIZER VACCINE 2020-12-07 00:00:00 Completed [facility] SARS-COV-2 COVID-19 PFIZER VACCINE 2020-12-07 00:00:00 Completed [facility] SARS-COV-2 COVID-19 PFIZER VACCINE 2020-12-07 00:00:00 Completed [facility] SARS-COV-2 COVID-19 PFIZER VACCINE 2020-12-07 00:00:00 Completed [facility] SARS-COV-2 COVID-19 PFIZER VACCINE 2020-12-07 00:00:00 Completed [facility] SARS-COV-2 COVID-19 PFIZER VACCINE 2020-12-07 00:00:00 Completed [facility] SARS-COV-2 COVID-19 PFIZER VACCINE 2020-12-07 00:00:00 Completed [facility] SARS-COV-2 COVID-19 PFIZER VACCINE 2020-12-07 00:00:00 Completed [facility] SARS-COV-2 COVID-19 PFIZER VACCINE 2020-11-16 00:00:00 Completed [facility] SARS-COV-2 COVID-19 PFIZER VACCINE 2020-11-16 00:00:00 Completed [facility] SARS-COV-2 COVID-19 PFIZER VACCINE 2020-11-16 00:00:00 Completed [facility] SARS-COV-2 COVID-19 PFIZER VACCINE 2020-11-16 00:00:00 Completed [facility] SARS-COV-2 COVID-19 PFIZER VACCINE 2020-11-16 00:00:00 Completed [facility] SARS-COV-2 COVID-19 PFIZER VACCINE 2020-11-16 00:00:00 Completed [facility] SARS-COV-2 COVID-19 PFIZER VACCINE 2020-11-16 00:00:00 Completed [facility] SARS-COV-2 COVID-19 PFIZER VACCINE 2020-11-16 00:00:00 Completed [facility] SARS-COV-2 COVID-19 PFIZER VACCINE 2020-11-16 00:00:00 Completed [facility] SARS-COV-2 COVID-19 PFIZER VACCINE 2020-11-16 00:00:00 Completed [facility] SARS-COV-2 COVID-19 PFIZER VACCINE 2020-11-16 00:00:00 Completed [facility] SARS-COV-2 COVID-19 PFIZER VACCINE 2020-11-16 00:00:00 Completed [facility] SARS-COV-2 COVID-19 PFIZER VACCINE 2020-11-16 00:00:00 Completed [facility] SARS-COV-2 COVID-19 PFIZER VACCINE 2020-11-16 00:00:00 Completed [facility] SARS-COV-2 COVID-19 PFIZER VACCINE 2020-11-16 00:00:00 Completed [facility] SARS-COV-2 COVID-19 PFIZER VACCINE 2020-11-16 00:00:00 Completed [facility] SARS-COV-2 COVID-19 PFIZER VACCINE 2020-11-16 00:00:00 Completed [facility] SARS-COV-2 COVID-19 PFIZER VACCINE 2020-11-16 00:00:00 Completed [facility] SARS-COV-2 COVID-19 PFIZER VACCINE 2020-11-16 00:00:00 Completed [facility] SARS-COV-2 COVID-19 PFIZER VACCINE 2020-11-16 00:00:00 Completed [facility] SARS-COV-2 COVID-19 PFIZER VACCINE 2020-11-16 00:00:00 Completed [facility] SARS-COV-2 COVID-19 PFIZER VACCINE 2020-11-16 00:00:00 Completed [facility] SARS-COV-2 COVID-19 PFIZER VACCINE 2020-11-16 00:00:00 Completed [facility] SARS-COV-2 COVID-19 PFIZER VACCINE 2020-11-16 00:00:00 Completed [facility] Influenza Virus Vaccine Quad .5 mL IM 6+ MO (FLUZONE/FLULAVAL/F LUARIX) 2020-05-22 00:00:00 Completed [facility] Influenza Virus Vaccine Quad .5 mL IM 6+ MO (FLUZONE/FLULAVAL/F LUARIX) 2020-05-22 00:00:00 Completed [facility] Influenza Virus Vaccine Quad .5 mL IM 6+ MO (FLUZONE/FLULAVAL/F LUARIX) 2020-05-22 00:00:00 Completed [facility] Influenza Virus Vaccine Quad .5 mL IM 6+ MO (FLUZONE/FLULAVAL/F LUARIX) 2020-05-22 00:00:00 Completed [facility] Influenza Virus Vaccine Quad .5 mL IM 6+ MO 2020-05-22 00:00:00 Completed [facility] Influenza Virus Vaccine Quad .5 mL IM 6+ MO 2020-05-22 00:00:00 Completed [facility] Influenza Virus Vaccine Quad .5 mL IM 6+ MO 2020-05-22 00:00:00 Completed [facility] Influenza Virus Vaccine Quad .5 mL IM 6+ MO 2020-05-22 00:00:00 Completed [facility] Influenza Virus Vaccine Quad .5 mL IM 6+ MO 2020-05-22 00:00:00 Completed [facility] Influenza Virus Vaccine Quad .5 mL IM 6+ MO 2020-05-22 00:00:00 Completed [facility] Influenza Virus Vaccine Quad .5 mL IM 6+ MO 2020-05-22 00:00:00 Completed [facility] Influenza Virus Vaccine Quad .5 mL IM 6+ MO 2020-05-22 00:00:00 Completed [facility] Influenza Virus Vaccine Quad .5 mL IM 6+ MO 2020-05-22 00:00:00 Completed [facility] Influenza Virus Vaccine Quad .5 mL IM 6+ MO 2020-05-22 00:00:00 Completed [facility] Influenza Virus Vaccine Quad .5 mL IM 6+ MO 2020-05-22 00:00:00 Completed [facility] Influenza Virus Vaccine Quad .5 mL IM 6+ MO 2020-05-22 00:00:00 Completed [facility] Influenza Virus Vaccine Quad .5 mL IM 6+ MO 2020-05-22 00:00:00 Completed [facility] Influenza Virus Vaccine Quad .5 mL IM 6+ MO 2020-05-22 00:00:00 Completed [facility] Influenza Virus Vaccine Quad .5 mL IM 6+ MO 2020-05-22 00:00:00 Completed [facility] Influenza Virus Vaccine Quad .5 mL IM 6+ MO 2020-05-22 00:00:00 Completed [facility] Influenza Virus Vaccine Quad .5 mL IM 6+ MO 2020-05-22 00:00:00 Completed [facility] Influenza Virus Vaccine Quad .5 mL IM 6+ MO 2020-05-22 00:00:00 Completed [facility] Influenza Virus Vaccine Quad .5 mL IM 6+ MO 2020-05-22 00:00:00 Completed [facility] Influenza Virus Vaccine Quad .5 mL IM 6+ MO 2020-05-22 00:00:00 Completed [facility] Influenza Virus Vaccine Quad .5 mL IM 6+ MO 2020-05-22 00:00:00 Completed [facility] Influenza Virus Vaccine Quad .5 mL IM 6+ MO 2020-05-22 00:00:00 Completed [facility] Influenza Virus Vaccine Quad .5 mL IM 6+ MO 2020-05-22 00:00:00 Completed [facility] Influenza Virus Vaccine Quad .5 mL IM 6+ MO 2020-05-22 00:00:00 Completed [facility] Influenza Virus Vaccine Quad .5 mL IM 6+ MO 2020-05-22 00:00:00 Completed [facility] Influenza Virus Vaccine Quad .5 mL IM 6+ MO 2020-05-22 00:00:00 Completed [facility] Influenza Virus Vaccine Quad .5 mL IM 6+ MO 2020-05-22 00:00:00 Completed [facility] Influenza Virus Vaccine Quad .5 mL IM 6+ MO 2020-05-22 00:00:00 Completed [facility] Influenza Virus Vaccine Quad .5 mL IM 6+ MO 2020-05-22 00:00:00 Completed [facility] Influenza Virus Vaccine Quad .5 mL IM 6+ MO 2020-05-22 00:00:00 Completed [facility] Influenza Virus Vaccine Quad .5 mL IM 6+ MO 2020-05-22 00:00:00 Completed [facility] Influenza Virus Vaccine Quad .5 mL IM 6+ MO 2020-05-22 00:00:00 Completed [facility] Influenza Virus Vaccine Quad .5 mL IM 6+ MO 2020-05-22 00:00:00 Completed [facility] TDAP 2020-03-15 00:00:00 Completed [facility] TDAP 2020-03-15 00:00:00 Completed [facility] TDAP 2020-03-15 00:00:00 Completed [facility] TDAP 2020-03-15 00:00:00 Completed [facility] TDAP 2020-03-15 00:00:00 Completed [facility] TDAP 2020-03-15 00:00:00 Completed [facility] TDAP 2020-03-15 00:00:00 Completed [facility] TDAP 2020-03-15 00:00:00 Completed [facility] TDAP 2020-03-15 00:00:00 Completed [facility] TDAP 2020-03-15 00:00:00 Completed [facility] TDAP 2020-03-15 00:00:00 Completed [facility] TDAP 2020-03-15 00:00:00 Completed [facility] TDAP 2020-03-15 00:00:00 Completed [facility] TDAP 2020-03-15 00:00:00 Completed [facility] TDAP 2020-03-15 00:00:00 Completed [facility] TDAP 2020-03-15 00:00:00 Completed [facility] TDAP 2020-03-15 00:00:00 Completed [facility] TDAP 2020-03-15 00:00:00 Completed [facility] TDAP 2020-03-15 00:00:00 Completed [facility] TDAP 2020-03-15 00:00:00 Completed [facility] TDAP 2020-03-15 00:00:00 Completed [facility] TDAP 2020-03-15 00:00:00 Completed [facility] TDAP 2020-03-15 00:00:00 Completed [facility] TDAP 2020-03-15 00:00:00 Completed [facility] TDAP 2020-03-15 00:00:00 Completed [facility] TDAP 2020-03-15 00:00:00 Completed [facility] TDAP 2020-03-15 00:00:00 Completed [facility] TDAP 2020-03-15 00:00:00 Completed [facility] TDAP 2020-03-15 00:00:00 Completed [facility] TDAP 2020-03-15 00:00:00 Completed [facility] TDAP 2020-03-15 00:00:00 Completed [facility] TDAP 2020-03-15 00:00:00 Completed [facility] TDAP 2020-03-15 00:00:00 Completed [facility] TDAP 2020-03-15 00:00:00 Completed [facility] TDAP 2020-03-15 00:00:00 Completed [facility] TDAP 2020-03-15 00:00:00 Completed [facility] TDAP 2020-03-15 00:00:00 Completed [facility] TDAP 2020-03-15 00:00:00 Completed [facility] TDAP 2020-03-15 00:00:00 Completed [facility] TDAP 2020-03-15 00:00:00 Completed [facility] TDAP 2020-03-15 00:00:00 Completed [facility] TDAP 2020-03-15 00:00:00 Completed [facility] TDAP 2020-03-15 00:00:00 Completed [facility] TDAP 2020-03-15 00:00:00 Completed [facility] TDAP 2020-03-15 00:00:00 Completed [facility] TDAP 2020-03-15 00:00:00 Completed [facility] TDAP 2020-03-15 00:00:00 Completed [facility] TDAP Unknown Completed [facility] Influenza Virus Vaccine Quad .5 mL IM 6+ MO (FLUZONE/FLULAVAL/F LUARIX) Unknown Completed [facility] SARS-COV-2 COVID-19 PFIZER VACCINE Unknown Completed [facility] TDAP Unknown Completed [facility] Influenza Virus Vaccine Quad .5 mL IM 6+ MO (FLUZONE/FLULAVAL/F LUARIX) Unknown Completed [facility] SARS-COV-2 COVID-19 PFIZER VACCINE Unknown Completed [facility] TDAP Unknown Completed [facility] Influenza Virus Vaccine Quad .5 mL IM 6+ MO (FLUZONE/FLULAVAL/F LUARIX) Unknown Completed [facility] SARS-COV-2 COVID-19 PFIZER VACCINE Unknown Completed [facility] Influenza Virus Vaccine Quad IM, Preserv and ABX Free 6 MO-64 YRS (FLUCELVAX) Unknown Completed [facility] TDAP Unknown Completed [facility] Influenza Virus Vaccine Quad .5 mL IM 6+ MO (FLUZONE/FLULAVAL/F LUARIX) Unknown Completed [facility] SARS-COV-2 COVID-19 PFIZER VACCINE Unknown Completed [facility] Influenza Virus Vaccine Quad IM, Preserv and ABX Free 6 MO-64 YRS (FLUCELVAX) Unknown Completed [facility] TDAP Unknown Completed [facility] Influenza Virus Vaccine Quad .5 mL IM 6+ MO (FLUZONE/FLULAVAL/F LUARIX) Unknown Completed [facility] SARS-COV-2 COVID-19 PFIZER VACCINE Unknown Completed [facility] Influenza Virus Vaccine Quad IM, Preserv and ABX Free 6 MO-64 YRS (FLUCELVAX) Unknown Completed [facility] TDAP Unknown Completed [facility] Influenza Virus Vaccine Quad .5 mL IM 6+ MO (FLUZONE/FLULAVAL/F LUARIX) Unknown Completed [facility] SARS-COV-2 COVID-19 PFIZER VACCINE Unknown Completed [facility] Influenza Virus Vaccine Quad IM, Preserv and ABX Free 6 MO-64 YRS (FLUCELVAX) Unknown Completed [facility] TDAP Unknown Completed [facility] Influenza Virus Vaccine Quad .5 mL IM 6+ MO (FLUZONE/FLULAVAL/F LUARIX) Unknown Completed [facility] SARS-COV-2 COVID-19 PFIZER VACCINE Unknown Completed [facility] Influenza Virus Vaccine Quad IM, Preserv and ABX Free 6 MO-64 YRS (FLUCELVAX) Unknown Completed [facility] TDAP Unknown Completed [facility] Influenza Virus Vaccine Quad .5 mL IM 6+ MO (FLUZONE/FLULAVAL/F LUARIX) Unknown Completed [facility] SARS-COV-2 COVID-19 PFIZER VACCINE Unknown Completed [facility] Influenza Virus Vaccine Quad IM, Preserv and ABX Free 6 MO-64 YRS (FLUCELVAX) Unknown Completed [facility] TDAP Unknown Completed [facility] Influenza Virus Vaccine Quad .5 mL IM 6+ MO (FLUZONE/FLULAVAL/F LUARIX) Unknown Completed [facility] SARS-COV-2 COVID-19 PFIZER VACCINE Unknown Completed [facility] Influenza Virus Vaccine Quad IM, Preserv and ABX Free 6 MO-64 YRS (FLUCELVAX) Unknown Completed [facility] TDAP Unknown Completed [facility] Influenza Virus Vaccine Quad .5 mL IM 6+ MO (FLUZONE/FLULAVAL/F LUARIX) Unknown Completed [facility] SARS-COV-2 COVID-19 PFIZER VACCINE Unknown Completed [facility] Influenza Virus Vaccine Quad IM, Preserv and ABX Free 6 MO-64 YRS (FLUCELVAX) Unknown Completed [facility] TDAP Unknown Completed [facility] Influenza Virus Vaccine Quad .5 mL IM 6+ MO (FLUZONE/FLULAVAL/F LUARIX) Unknown Completed [facility] SARS-COV-2 COVID-19 PFIZER VACCINE Unknown Completed [facility] Influenza Virus Vaccine Quad IM, Preserv and ABX Free 6 MO-64 YRS (FLUCELVAX) Unknown Completed [facility] TDAP Unknown Completed [facility] Influenza Virus Vaccine Quad .5 mL IM 6+ MO (FLUZONE/FLULAVAL/F LUARIX) Unknown Completed [facility] SARS-COV-2 COVID-19 PFIZER VACCINE Unknown Completed [facility] Influenza Virus Vaccine Quad IM, Preserv and ABX Free 6 MO-64 YRS (FLUCELVAX) Unknown Completed [facility] TDAP Unknown Completed [facility] Influenza Virus Vaccine Quad .5 mL IM 6+ MO (FLUZONE/FLULAVAL/F LUARIX) Unknown Completed [facility] SARS-COV-2 COVID-19 PFIZER VACCINE Unknown Completed [facility] Influenza Virus Vaccine Quad IM, Preserv and ABX Free 6 MO-64 YRS (FLUCELVAX) Unknown Completed [facility] TDAP Unknown Completed [facility] Influenza Virus Vaccine Quad .5 mL IM 6+ MO (FLUZONE/FLULAVAL/F LUARIX) Unknown Completed [facility] SARS-COV-2 COVID-19 PFIZER VACCINE Unknown Completed [facility] Influenza Virus Vaccine Quad IM, Preserv and ABX Free 6 MO-64 YRS (FLUCELVAX) Unknown Completed [facility] TDAP Unknown Completed [facility] Influenza Virus Vaccine Quad .5 mL IM 6+ MO (FLUZONE/FLULAVAL/F LUARIX) Unknown Completed [facility] SARS-COV-2 COVID-19 PFIZER VACCINE Unknown Completed [facility] Influenza Virus Vaccine Quad IM, Preserv and ABX Free 6 MO-64 YRS (FLUCELVAX) Unknown Completed [facility] TDAP Unknown Completed [facility] Influenza Virus Vaccine Quad .5 mL IM 6+ MO (FLUZONE/FLULAVAL/F LUARIX) Unknown Completed [facility] SARS-COV-2 COVID-19 PFIZER VACCINE Unknown Completed [facility] Influenza Virus Vaccine Quad IM, Preserv and ABX Free 6 MO-64 YRS (FLUCELVAX) Unknown Completed [facility] TDAP Unknown Completed [facility] Influenza Virus Vaccine Quad .5 mL IM 6+ MO (FLUZONE/FLULAVAL/F LUARIX) Unknown Completed [facility] SARS-COV-2 COVID-19 PFIZER VACCINE Unknown Completed [facility] Influenza Virus Vaccine Quad IM, Preserv and ABX Free 6 MO-64 YRS (FLUCELVAX) Unknown Completed [facility] TDAP Unknown Completed [facility] Influenza Virus Vaccine Quad .5 mL IM 6+ MO (FLUZONE/FLULAVAL/F LUARIX) Unknown Completed [facility] SARS-COV-2 COVID-19 PFIZER VACCINE Unknown Completed [facility] Influenza Virus Vaccine Quad IM, Preserv and ABX Free 6 MO-64 YRS (FLUCELVAX) Unknown Completed [facility] TDAP Unknown Completed [facility] Influenza Virus Vaccine Quad .5 mL IM 6+ MO (FLUZONE/FLULAVAL/F LUARIX) Unknown Completed [facility] SARS-COV-2 COVID-19 PFIZER VACCINE Unknown Completed [facility] Influenza Virus Vaccine Quad IM, Preserv and ABX Free 6 MO-64 YRS (FLUCELVAX) Unknown Completed [facility] TDAP Unknown Completed [facility] Influenza Virus Vaccine Quad .5 mL IM 6+ MO (FLUZONE/FLULAVAL/F LUARIX) Unknown Completed [facility] SARS-COV-2 COVID-19 PFIZER VACCINE Unknown Completed [facility] Influenza Virus Vaccine Quad IM, Preserv and ABX Free 6 MO-64 YRS (FLUCELVAX) Unknown Completed [facility] TDAP Unknown Completed [facility] Influenza Virus Vaccine Quad .5 mL IM 6+ MO (FLUZONE/FLULAVAL/F LUARIX) Unknown Completed [facility] SARS-COV-2 COVID-19 PFIZER VACCINE Unknown Completed [facility] Influenza Virus Vaccine Quad IM, Preserv and ABX Free 6 MO-64 YRS (FLUCELVAX) Unknown Completed [facility] TDAP Unknown Completed [facility] Influenza Virus Vaccine Quad .5 mL IM 6+ MO (FLUZONE/FLULAVAL/F LUARIX) Unknown Completed [facility] SARS-COV-2 COVID-19 PFIZER VACCINE Unknown Completed [facility] Influenza Virus Vaccine Quad IM, Preserv and ABX Free 6 MO-64 YRS (FLUCELVAX) Unknown Completed [facility] TDAP Unknown Completed [facility] Influenza Virus Vaccine Quad .5 mL IM 6+ MO (FLUZONE/FLULAVAL/F LUARIX) Unknown Completed [facility] SARS-COV-2 COVID-19 PFIZER VACCINE Unknown Completed [facility] Influenza Virus Vaccine Quad IM, Preserv and ABX Free 6 MO-64 YRS (FLUCELVAX) Unknown Completed [facility] TDAP Unknown Completed [facility] Influenza Virus Vaccine Quad .5 mL IM 6+ MO (FLUZONE/FLULAVAL/F LUARIX) Unknown Completed [facility] SARS-COV-2 COVID-19 PFIZER VACCINE Unknown Completed [facility] Influenza Virus Vaccine Quad IM, Preserv and ABX Free 6 MO-64 YRS (FLUCELVAX) Unknown Completed [facility] Vital Signs Vital Name Observation Time Observation Value Comments [facility]ce Systolic blood pressure 2023-10-11 16:51:00 150 mm[Hg] [facility] Diastolic blood pressure 2023-10-11 16:51:00 87 mm[Hg] [facility] Heart rate 2023-10-11 16:03:00 73 /min [facility] Body temperature 2023-10-11 16:03:00 36.39 Steffanie [facility] Body height 2023-10-11 16:03:00 167.6 cm [facility] Body weight 2023-10-11 16:03:00 111.585 kg [facility] BMI 2023-10-11 16:03:00 39.71 kg/m2 [facility] Oxygen saturation in Arterial blood by Pulse oximetry 2023-10-11 16:03:00 100 /min [facility] Systolic blood pressure 2023-07-16 15:53:00 146 mm[Hg] [facility] Diastolic blood pressure 2023-07-16 15:53:00 94 mm[Hg] [facility] Heart rate 2023-07-16 15:39:00 71 [facility] 2023-07-16 15:39:00 36.5 Steffanie [facility] Respiratory rate 2023-07-16 15:39:00 18 /min [facility] Body height 2023-07-16 15:39:00 165.1 cm [facility] Body weight 2023-07-16 15:39:00 108.41 kg [facility] BMI 2023-07-16 15:39:00 39.77 kg/m2 [facility] Systolic blood pressure 2023-06-22 17:23:00 120 mm[Hg] [facility] Diastolic blood pressure 2023-06-22 17:23:00 69 mm[Hg] [facility] Heart rate 2023-06-22 17:22:00 67 /min [facility] Body temperature 2023-06-22 17:22:00 36.67 Steffanie [facility] Respiratory rate 2023-06-22 17:22:00 17 /min [facility] Body height 2023-06-22 17:22:00 165.1 cm [facility] Body weight 2023-06-22 17:22:00 107.775 kg [facility] BMI 2023-06-22 17:22:00 39.54 kg/m2 [facility] Systolic blood pressure 2023-06-01 15:19:00 130 mm[Hg] [facility] Diastolic blood pressure 2023-06-01 15:19:00 84 mm[Hg] [facility] Heart rate 2023-06-01 15:19:00 83 /min [facility] Body temperature 2023-06-01 15:19:00 36.78 Steffanie [facility] Respiratory rate 2023-06-01 15:19:00 18 /min [facility] Body height 2023-06-01 15:19:00 167.6 cm [facility] Body weight 2023-06-01 15:19:00 108.863 kg [facility] BMI 2023-06-01 15:19:00 38.74 kg/m2 [facility] Systolic blood pressure 2023-05-26 21:30:00 125 mm[Hg] [facility] Diastolic blood pressure 2023-05-26 21:30:00 75 mm[Hg] [facility] Heart rate 2023-05-26 21:30:00 73 /min [facility] Body temperature 2023-05-26 21:30:00 36.39 Steffanie [facility] Respiratory rate 2023-05-26 21:30:00 18 /min [facility] Oxygen saturation in Arterial blood by Pulse oximetry 2023-05-26 21:30:00 99 /min [facility] Body height 2023-05-25 11:15:00 167.6 cm [facility] Body weight 2023-05-25 11:15:00 116.484 kg [facility] BMI 2023-05-25 11:15:00 41.45 kg/m2 [facility] Heart rate 2023-05-25 15:00:00 67 /min [facility] Oxygen saturation in Arterial blood by Pulse oximetry 2023-05-25 15:00:00 100 /min [facility] Systolic blood pressure 2023-05-25 13:00:00 134 mm[Hg] [facility] Diastolic blood pressure 2023-05-25 13:00:00 82 mm[Hg] [facility] Body temperature 2023-05-25 11:15:00 36.78 Steffanie [facility] Respiratory rate 2023-05-25 11:15:00 16 /min [facility] Body height 2023-05-25 11:15:00 167.6 cm [facility] Body weight 2023-05-25 11:15:00 116.484 kg [facility] BMI 2023-05-25 11:15:00 41.45 kg/m2 [facility] Respiratory rate 2023-05-25 14:44:00 15 /min [facility] Systolic blood pressure 2023-05-21 15:16:00 122 mm[Hg] [facility] Diastolic blood pressure 2023-05-21 15:16:00 77 mm[Hg] [facility] Heart rate 2023-05-21 15:16:00 74 /min [facility] Body temperature 2023-05-21 15:16:00 36.61 Steffanie [facility] Body height 2023-05-21 15:16:00 167.6 cm [facility] Body weight 2023-05-21 15:16:00 117.663 kg [facility] BMI 2023-05-21 15:16:00 41.87 kg/m2 [facility] Systolic blood pressure 2023-05-19 13:56:00 124 mm[Hg] [facility] Diastolic blood pressure 2023-05-19 13:56:00 81 mm[Hg] [facility] Heart rate 2023-05-19 13:56:00 116 [facility] 2023-05-19 13:56:00 36.61 Steffanie [facility] Respiratory rate 2023-05-19 13:56:00 16 /min [facility] Body height 2023-05-19 13:56:00 [facility] 2023-05-19 13:56:00 116[facility]574 [facility] 2023-05-19 13:56:00 41.48 [facility] Sy[facility] blood pressure 2023-05-17 16:04:00 127 mm[Hg] [facility] Diastolic blood pressure 2023-05-17 16:04:00 81 mm[Hg] [facility] Heart rate 2023-05-17 16:04:00 80 /min [facility] temperature 2023-05-17 16:04:00 36.78 Steffanie [facility] Body height 2023-05-17 16:04:00 167.[facility] 2023-05-17 16:04:00 117.028 kg [facility] BMI 2023-05-17 16:04:00 41.64 kg/m2 [facility] Systolic blood pressure 2023-05-12 14:14:00 115 mm[Hg] [facility] Diastolic blood pressure 2023-05-12 14:14:00 80 mm[Hg] [facility] Heart rate 2023-05-12 14:14:00 123 /min [facility] temperature 2023-05-12 14:14:00 36.28 Steffanie [facility] Respiratory rate 2023-05-12 14:14:00 16 /min [facility] Body height 2023-05-12 14:14:00 167[facility] 2023-05-12 14:14:00 116[facility]121 [facility] 2023-05-12 14:14:00 41.32 kg/m2 [facility] Systolic blood pressure 2023-05-05 13:42:00 119 mm[Hg] [facility] Diastolic blood pressure 2023-05-05 13:42:00 80 mm[Hg] [facility] Heart rate 2023-05-05 13:42:00 88 /min [facility] Body temperature 2023-05-05 13:42:00 36.83 Steffanie [facility] Respiratory rate 2023-05-05 13:42:00 16 /min [facility] Body height 2023-05-05 13:42:00 167.6 cm [facility] Body weight 2023-05-05 13:42:00 115.577 kg [facility] BMI 2023-05-05 13:42:00 41.13 kg/m2 [facility] Systolic blood pressure 2023-04-28 15:09:00 109 mm[Hg] [facility] Diastolic blood pressure 2023-04-28 15:09:00 73 mm[Hg] [facility] Heart rate 2023-04-28 15:09:00 85 /min [facility] Respiratory rate 2023-04-28 15:09:00 18 /min [facility] Body height 2023-04-28 15:09:00 167.6 cm [facility] Body weight 2023-04-28 15:09:00 116.574 kg [facility] BMI 2023-04-28 15:09:00 41.48 kg/m2 [facility] Systolic blood pressure 2023-04-21 15:08:00 109 mm[Hg] [facility] Diastolic blood pressure 2023-04-21 15:08:00 71 mm[Hg] [facility] Heart rate 2023-04-21 15:08:00 91 /min [facility] Body temperature 2023-04-21 15:08:00 36.72 Steffanie [facility] Respiratory rate 2023-04-21 15:08:00 18 /min [facility] Body height 2023-04-21 15:08:00 167.6 cm [facility] Body weight 2023-04-21 15:08:00 114.941 kg [facility] BMI 2023-04-21 15:08:00 40.90 kg/m2 [facility] Systolic blood pressure 2023-04-19 18:57:00 116 mm[Hg] [facility] Diastolic blood pressure 2023-04-19 18:57:00 72 mm[Hg] [facility] Heart rate 2023-04-19 18:57:00 88 /min [facility] Body temperature 2023-04-19 18:57:00 36.83 Steffanie [facility] Respiratory rate 2023-04-19 18:57:00 16 /min [facility] Body height 2023-04-19 18:57:00 167.6 cm [facility] Body weight 2023-04-19 18:57:00 114.17 kg [facility] BMI 2023-04-19 18:57:00 40.63 kg/m2 [facility] Oxygen saturation in Arterial blood by Pulse oximetry 2023-04-19 18:57:00 97 /min [facility] Diastolic blood pressure 2023-04-07 15:33:00 73 mm[Hg] [facility] Heart rate 2023-04-07 15:33:00 79 /min [facility] [facility] Body temperature 2023-04-07 15:33:00 36.78 Steffanie [facility] Respiratory rate 2023-04-07 15:33:00 17 /min [facility] Body height 2023-04-07 15:33:00 167.6 cm [facility] Body weight 2023-04-07 15:33:00 116.121 kg [facility] BMI 2023-04-07 15:33:00 41.32 kg/m2 [facility] Systolic blood pressure 2023-04-07 15:33:00 116 mm[Hg] [facility] Systolic blood pressure 2023-03-24 19:56:00 117 mm[Hg] [facility] Diastolic blood pressure 2023-03-24 19:56:00 74 mm[Hg] [facility] Heart rate 2023-03-24 19:56:00 79 /min [facility] Body temperature 2023-03-24 19:56:00 36.67 Steffanie [facility] Respiratory rate 2023-03-24 19:56:00 18 /min [facility] Body height 2023-03-24 19:56:00 167.6 cm [facility] Body weight 2023-03-24 19:56:00 116.257 kg [facility] BMI 2023-03-24 19:56:00 41.37 kg/m2 [facility] Systolic blood pressure 2023-03-10 21:00:00 114 mm[Hg] [facility] Diastolic blood pressure 2023-03-10 21:00:00 73 mm[Hg] [facility] Heart rate 2023-03-10 21:00:00 77 /min [facility] Body temperature 2023-03-10 21:00:00 36.94 Steffanie [facility] Respiratory rate 2023-03-10 21:00:00 16 /min [facility] Body height 2023-03-10 21:00:00 167.6 cm [facility] Body weight 2023-03-10 21:00:00 115.032 kg [facility] BMI 2023-03-10 21:00:00 40.93 kg/m2 [facility] Oxygen saturation in Arterial blood by Pulse oximetry 2023-03-10 21:00:00 98 /min [facility] Systolic blood pressure 2023-02-17 17:55:00 126 mm[Hg] [facility] Diastolic blood pressure 2023-02-17 17:55:00 79 mm[Hg] [facility] Heart rate 2023-02-17 17:55:00 75 /min [facility] Body temperature 2023-02-17 17:55:00 37 Steffanie [facility] Respiratory rate 2023-02-17 17:55:00 16 /min [facility] Body height 2023-02-17 17:55:00 167.6 cm [facility] Body weight 2023-02-17 17:55:00 111.993 kg [facility] BMI 2023-02-17 17:55:00 39.85 [facility] saturation in Arterial blood by Pulse oximetry 2023-02-17 17:55:00 98 /min [facility] Systolic blood pressure 2023-01-20 21:04:00 116 mm[Hg] [facility] Diastolic blood pressure 2023-01-20 21:04:00 72 mm[Hg] [facility] Heart rate 2023-01-20 21:04:00 79 /min [facility] Body temperature 2023-01-20 21:04:00 37 Steffanie [facility] Respiratory rate 2023-01-20 21:04:00 16 /min [facility] Body height 2023-01-20 21:04:00 167.6 cm [facility] Body weight 2023-01-20 21:04:00 109.907 kg [facility] BMI 2023-01-20 21:04:00 39.11 kg/m2 [facility] Oxygen saturation in Arterial blood by Pulse oximetry 2023-01-20 21:04:00 98 /min [facility] Systolic blood pressure 2022-12-23 15:06:00 118 mm[Hg] [facility] Diastolic blood pressure 2022-12-23 15:06:00 76 mm[Hg] [facility] Heart rate 2022-12-23 15:06:00 77 /min [facility] 2022-12-23 15:06:00 18 /min [facility] Body height 2022-12-23 15:06:00 167.6 cm [facility] Body weight 2022-12-23 15:06:00 105.688 kg [facility] BMI 2022-12-23 15:06:00 37.61 kg/m2 [facility] Systolic blood pressure 2022-11-25 16:19:00 116 mm[Hg] [facility] Diastolic blood pressure 2022-11-25 16:19:00 77 mm[Hg] [facility] Heart rate 2022-11-25 16:19:00 72 /min [facility] 2022-11-25 16:19:00 18 /min [facility] Body height 2022-11-25 16:19:00 167.6 cm [facility] Body weight 2022-11-25 16:19:00 103.874 kg [facility] BMI 2022-11-25 16:19:00 36.96 kg/m2 [facility] Systolic blood pressure 2022-10-27 19:07:00 121 mm[Hg] [facility] Diastolic blood pressure 2022-10-27 19:07:00 81 mm[Hg] [facility] Heart rate 2022-10-27 19:07:00 71 /min [facility] 2022-10-27 19:07:00 18 /min [facility] Body height 2022-10-27 19:07:00 167.6 cm [facility] Body weight 2022-10-27 19:07:00 103.42 kg [facility] BMI 2022-10-27 19:07:00 36.80 kg/m2 [facility] Systolic blood pressure 2020-07-02 17:17:00 132 mm[Hg] [facility] Diastolic blood pressure 2020-07-02 17:17:00 88 mm[Hg] [facility] Heart rate 2020-07-02 17:17:00 57 /min [facility] Body temperature 2020-07-02 17:17:00 36.83 Steffanie [facility] Respiratory rate 2020-07-02 17:17:00 18 /min [facility] Body height 2020-07-02 17:17:00 167.6 cm [facility] Body weight 2020-07-02 17:17:00 111.585 kg [facility] BMI 2020-07-02 17:17:00 39.71 kg/m2 [facility] blood pressure 2020-07-02 17:17:00 132 mm[Hg] [facility] Diastolic blood pressure 2020-07-02 17:17:00 88 mm[Hg] [facility] Heart rate 2020-07-02 17:17:00 57 /min [facility] Body temperature 2020-07-02 17:17:00 36.83 Steffanie [facility] Respiratory rate 2020-07-02 17:17:00 18 /min [facility] Body height 2020-07-02 17:17:00 167.6 cm [facility] Body weight 2020-07-02 17:17:00 111.585 kg [facility] BMI 2020-07-02 17:17:00 39.71 kg/m2 [facility] Systolic blood pressure 2020-06-11 20:35:00 108 mm[Hg] [facility] Diastolic blood pressure 2020-06-11 20:35:00 70 mm[Hg] [facility] Heart rate 2020-06-11 20:35:00 67 /min [facility] Body temperature 2020-06-11 20:35:00 36.72 Steffanie [facility] Respiratory rate 2020-06-11 20:35:00 18 /min [facility] Body height 2020-06-11 20:35:00 167.6 cm [facility] Body weight 2020-06-11 20:35:00 111.676 kg [facility] BMI 2020-06-11 20:35:00 39.74 kg/m2 [facility] Systolic blood pressure 2020-06-11 20:35:00 108 mm[Hg] [facility] Diastolic blood pressure 2020-06-11 20:35:00 70 mm[Hg] [facility] Heart rate 2020-06-11 20:35:00 67 /min [facility] Body temperature 2020-06-11 20:35:00 36.72 Steffanie [facility] Respiratory rate 2020-06-11 20:35:00 18 /min [facility] Body height 2020-06-11 20:35:00 167.6 cm [facility] Body weight 2020-06-11 20:35:00 111.676 kg [facility] BMI 2020-06-11 20:35:00 39.74 kg/m2 [facility] Systolic blood pressure 2020-06-04 22:30:00 121 mm[Hg] [facility] Diastolic blood pressure 2020-06-04 22:30:00 67 mm[Hg] [facility] Heart rate 2020-06-04 22:30:00 68 /min [facility] Body temperature 2020-06-04 22:30:00 37 Steffanie [facility] Respiratory rate 2020-06-04 22:30:00 18 /min [facility] Oxygen saturation in Arterial blood by Pulse oximetry 2020-06-04 22:30:00 97 /min [facility] Body height 2020-06-03 11:00:00 167.6 cm [facility] Body weight 2020-06-03 11:00:00 117.391 kg [facility] BMI 2020-06-03 11:00:00 41.79 kg/m2 [facility] Systolic blood pressure 2020-06-04 22:30:00 121 mm[Hg] [facility] Diastolic blood pressure 2020-06-04 22:30:00 67 mm[Hg] [facility] Heart rate 2020-06-04 22:30:00 68 /min [facility] Body temperature 2020-06-04 22:30:00 37 Steffanie [facility] Respiratory rate 2020-06-04 22:30:00 18 /min [facility] Oxygen saturation in Arterial blood by Pulse oximetry 2020-06-04 22:30:00 97 /min [facility] Body height 2020-06-03 11:00:00 167.6 cm [facility] Body weight 2020-06-03 11:00:00 117.391 kg [facility] BMI 2020-06-03 11:00:00 41.79 kg/m2 [facility] Systolic blood pressure 2020-05-28 21:25:00 113 mm[Hg] [facility] Diastolic blood pressure 2020-05-28 21:25:00 75 mm[Hg] [facility] Heart rate 2020-05-28 21:25:00 73 /min [facility] Body temperature 2020-05-28 21:25:00 36.89 Steffanie [facility] Respiratory rate 2020-05-28 21:25:00 18 /min [facility] Body height 2020-05-28 21:25:00 167.6 cm [facility] Body weight 2020-05-28 21:25:00 118.389 kg [facility] BMI 2020-05-28 21:25:00 42.13 kg/m2 [facility] Systolic blood pressure 2020-05-28 21:25:00 113 mm[Hg] [facility] Diastolic blood pressure 2020-05-28 21:25:00 75 mm[Hg] [facility] Heart rate 2020-05-28 21:25:00 73 /min [facility] Body temperature 2020-05-28 21:25:00 36.89 Steffanie [facility] Respiratory rate 2020-05-28 21:25:00 18 /min [facility] Body height 2020-05-28 21:25:00 167.6 cm [facility] Body weight 2020-05-28 21:25:00 118.389 [facility] BMI 2020-05-28 21:25:00 42.13 kg/m2 [facility] Sy[facility]olic blood pressure 2020-05-22 21:51:00 126 mm[Hg] [facility] Diastolic blood pressure 2020-05-22 21:51:00 85 mm[Hg] [facility] Heart rate 2020-05-22 21:51:00 77 /min [facility] Body temperature 2020-05-22 21:51:00 36.89 Steffanie [facility] Respiratory rate 2020-05-22 21:51:00 18 /min [facility] Body height 2020-05-22 21:51:00 167.6 cm [facility] Body weight 2020-05-22 21:51:00 117.935 kg [facility] BMI 2020-05-22 21:51:00 41.97 kg/m2 [facility] Systolic blood pressure 2020-05-06 21:31:00 127 mm[Hg] [facility] Diastolic blood pressure 2020-05-06 21:31:00 74 mm[Hg] [facility] Heart rate 2020-05-06 21:31:00 83 /min [facility] Body temperature 2020-05-06 21:31:00 37 Steffanie [facility] Respiratory rate 2020-05-06 21:31:00 18 /min [facility] Body height 2020-05-06 21:31:00 167.6 cm [facility] Body weight 2020-05-06 21:31:00 115.214 kg [facility] BMI 2020-05-06 21:31:00 41.00 kg/m2 [facility] Systolic blood pressure 2020-04-18 16:08:00 124 mm[Hg] [facility] Diastolic blood pressure 2020-04-18 16:08:00 73 mm[Hg] [facility] Heart rate 2020-04-18 16:08:00 82 /min [facility] Body temperature 2020-04-18 16:08:00 36.83 Steffanie [facility] Respiratory rate 2020-04-18 16:08:00 18 /min [facility] Body height 2020-04-18 16:08:00 167.6 cm [facility] Body weight 2020-04-18 16:08:00 114.034 kg [facility] BMI 2020-04-18 16:08:00 40.58 kg/m2 [facility] Systolic blood pressure 2020-04-05 19:30:00 113 mm[Hg] [facility] Diastolic blood pressure 2020-04-05 19:30:00 72 mm[Hg] [facility] Heart rate 2020-04-05 19:30:00 80 /min [facility] Body temperature 2020-04-05 19:30:00 36.78 Steffanie [facility] Respiratory rate 2020-04-05 19:30:00 18 /min [facility] Body height 2020-04-05 19:30:00 167.6 cm [facility] Body weight 2020-04-05 19:30:00 112.583 kg [facility] BMI 2020-04-05 19:30:00 40.06 kg/m2 [facility] Body weight 2020-03-15 14:13:00 109.77 kg [facility] BMI 2020-03-15 14:13:00 39.06 kg/m2 [facility] Systolic blood pressure 2020-03-15 14:13:00 117 mm[Hg] [facility] Diastolic blood pressure 2020-03-15 14:13:00 69 mm[Hg] [facility] Heart rate 2020-03-15 14:13:00 78 /min [facility] Body temperature 2020-03-15 14:13:00 36.89 Steffanie [facility] Respiratory rate 2020-03-15 14:13:00 18 /min [facility] Body height 2020-03-15 14:13:00 167.6 cm [facility] Procedures Procedure Date / Time Performed Performing Clinician Source PATIENT FINANCIAL RESPONSIBILITY - ALL FORMS 2023-10-11 06:01:00 Doctor Unassigned, [facility] GLUCOSE FASTING 2023-05-26 11:17:00 Adum, Dolores Bronson [facility] GLUCOSE FASTING 2023-05-26 11:17:00 [facility]um[facility] WITH DIFF 2023-05-26 08:11:00 Adum, Dolores [facility] CBC WITH DIFF 2023-05-26 08:11:00 Adum, Dolores [facility] CENTRAL NEURAXIAL BLOCK 2023-05-25 13:15:00 Bill Cox [facility] SECTION 2023-05-25 12:49:00 Adum, [facility] 2023-05-25 12:49:00 Adum, Dolores [facility] SECTION 2023-05-25 12:49:00 Adum, [facility]OMY 2023-05-25 12:49:00 Adum, Dolores Bronson [facility] POCT GLUCOSE (AUTOMATED) 2023-05-25 11:25:00 Adum, Kerri villalpandon Aiyana [facility] POCT GLUCOSE (AUTOMATED) 2023-05-25 11:25:00 Adum, Kerri villalpandon Aiyana [facility] NON-STRESS TEST 2023-05-21 20:07:28 Adum, Dolores Bronson [facility] DISABILITY/FMLA 2023-05-21 05:01:00 Doctor Unass igned, [facility] NON-STRESS TEST 2023-05-19 19:31:05 Adum, Dolores Bronson [facility] POCT URINALYSIS W/O SPECIFIC GRAVITY 2023-05-19 00:00:00 Adum, Dolores Aiyana [facility] NON-STRESS TEST 2023-05-17 17:08:35 Kindra Griggs [facility] SECOND AND THIRD TRIMESTER ULTRASOUND 2023-05-17 14:46:00 Adum, Dolores Aiyana [facility] NON-STRESS TEST 2023-05-12 15:37:44 Adum, Dolores Bronson [facility] FLU VACC ([id number]), 6 MO-64 YRS, .5ML, IM, QUAD (FLUCELVAX) 2023-05-12 14:29:00 Adum, Dolores Aiyana [facility] DSU PRE-OP 2023-05-12 05:01:00 Doctor Unass igned, [facility] DSU PRE-OP 2023-05-12 05:01:00 Doctor Unass igned, [facility] POCT URINALYSIS W/O SPECIFIC GRAVITY 2023-05-12 00:00:00 Adum, Dolores Aiyana [facility] NON-STRESS TEST 2023-05-05 14:15:29 Adum, Dolores Aiyana [facility] POCT URINALYSIS W/O SPECIFIC GRAVITY 2023-05-05 00:00:00 Adum, Dolores Aiyana [facility] NON-STRESS TEST 2023-04-28 16:21:53 Adum, Dolores Aiyana [facility] POCT URINALYSIS W/O SPECIFIC GRAVITY 2023-04-28 00:00:00 Adum, Dolores Bronson [facility] NON-STRESS TEST 2023-04-21 16:10:10 Adum, Dolores Bronson [facility] POCT URINALYSIS W/O SPECIFIC GRAVITY 2023-04-21 00:00:00 Adum, Dolores Bronson [facility] MEDICAL RELEASE/CLEARANCE FORMS 2023-04-07 05:01:00 Doctor Unassigned, [facility] POCT URINALYSIS W/O SPECIFIC GRAVITY 2023-04-07 00:00:00 Adum, Dolores Bronson [facility] TDAP VACCINE, >11 YRS, IM 2023-03-24 20:07:43 Adum, Forrest Bronson [facility] POCT URINALYSIS W/O SPECIFIC GRAVITY 2023-03-24 00:00:00 Adum, Dolores Bronson [facility] STERILIZATION CONSENT FORM 2023-03-10 05:01:00 Doctor Unassigned, [facility] POCT URINALYSIS W/O SPECIFIC GRAVITY 2023-03-10 00:00:00 Adum, Dolores Bronson [facility] POCT URINALYSIS W/O SPECIFIC GRAVITY 2023-02-17 00:00:00 Adum, Dolores Bronson [facility] POCT URINALYSIS W/O SPECIFIC GRAVITY 2023-01-20 00:00:00 Adum, Dolores Bronson [facility] POCT URINALYSIS W/O SPECIFIC GRAVITY 2022-12-23 00:00:00 Adum, Dolores Bronson [facility] SCANNED LAB RESULTS 2022-11-30 05:01:00 Doctor Marita thomason, [facility] POCT URINALYSIS W/O SPECIFIC GRAVITY 2022-11-25 00:00:00 Adum, Dolores Bronson [facility] US OB TRANSVAGINAL 2022-10-27 22:43:38 Adum, Dolores Bronson [facility] GC & CHLAMYDIA AMPLIFIED ASSAY 2022-10-27 20:07:00 Adum, Dolores Bronson [facility] HIGH RISK HPV-THIN PREP 2022-10-27 20:07:00 Adum, Marilee Bronson [facility] TRICHOMONAS AMPLIFIED ASSAY 2022-10-27 20:07:00 Adum, Dolores Bronson [facility] PAP SMEAR-LIQUID BASED-CP 2022-10-27 20:07:00 Adum, Forrest Bronson [facility] SPECIAL AGENT CLINIC ULTRASOUND 2022-10-27 05:01:00 Doc bryant Unassigned, [facility] POCT TEST 2022-10-27 00:00:00 Adum, Dolores Bronson [facility] POCT URINALYSIS W/O SPECIFIC GRAVITY 2022-10-27 00:00:00 Adum, Dolores Bronson [facility] CONSENT FOR ORAL CONTRACEPTIVES 2020-07-02 06:01:00 Doctor Unassigned, [facility] POCT TEST 2020-07-02 00:00:00 Jean Ricci [facility] DME/SUPPLY JUSTIFICATION 2020-06-14 06:01:00 Heber hurtado Unassigned, [facility] CBC WITH DIFF 2020-06-04 09:08:00 Kindra Griggs [facility] VENOUS CORD GAS 2020-06-03 13:42:00 Kindra Griggs [facility] SECTION 2020-06-03 12:43:00 Kindra Griggs [facility] CBC WITH DIFF 2020-06-03 11:48:00 Kindra Griggs [facility] HEPATITIS B SURFACE ANTIGEN 2020-06-03 11:48:00 Kindra Griggs [facility] ADC OR RUPINDER ONLY - RPR 2020-06-03 11:48:00 Stephania Griggs [facility] HIV 1/2 AG-AB WITH REFLEX 2020-06-03 11:48:00 Stephania Griggs [facility] HB ABO GROUPING 2020-06-03 11:44:00 Kindra Griggs [facility] RHO (D) IMMUNE GLOBULIN 2020-06-03 11:44:00 Kindra Griggs [facility] HOSPITAL ADMISSION 2020-06-03 05:01:00 Doctor Un assigned, [facility] CONSENT/REFUSAL FOR DIAGNOSIS AND TREATMENT 2020-05-31 16:00:16 Doctor Unassigned, [facility] ASSIGNMENT OF BENEFITS 2020-05-31 15:59:58 Docto r Unassigned, [facility] POCT URINALYSIS W/O SPECIFIC GRAVITY 2020-05-28 00:00:00 Kindra Griggs [facility] >14 WEEKS US LIMITED 2020-05-22 22:26:46 Kindra Griggs [facility] FLU VACC ([id number]), 6+ MONTHS, IM, QUAD 2020-05-22 21:52:59 Kindra Griggs [facility] DSU PRE-OP 2020-05-22 05:01:00 Doctor Unass igned, [facility] POCT URINALYSIS W/O SPECIFIC GRAVITY 2020-05-06 00:00:00 Kindra Griggs [facility] POCT URINALYSIS W/O SPECIFIC GRAVITY 2020-04-18 16:10:00 Eugene Ricci [facility] POCT URINALYSIS W/O SPECIFIC GRAVITY 2020-04-05 00:00:00 Kindra Griggs [facility] GLUCOSE 1 HOUR POST PRANDIAL 2020-03-15 16:38:00 Kindra Griggs [facility] CBC WITH DIFF 2020-03-15 16:38:00 Kindra Griggs [facility] TDAP VACCINE, >11 YRS, IM 2020-03-15 14:22:25 Keiry Eugene [facility] POCT URINALYSIS W/O SPECIFIC GRAVITY 2020-03-15 00:00:00 Eugene Ricci [facility] AGREEMENTS AUTHORIZATIONS AND IRREVOCABLE ASSIGNMENTS (FORM 2001) 2020-01-25 05:01:00 Doctor Unassigned, [facility] Encounters Start Date/Time End Date/Time Encounter Type Admission Type Attending Clinicians Care Facility Care Department Encounter ID Source 2024-07-25 10:30:00 2024-07-25 10:30:00 Outpatient R [facility] [id number] [facility] 2023-12-07 10:40:00 2023-12-07 10:40:00 Outpatient R OBI-GRIFFIN RODRIGESMA OBI-ANTELMO , [facility] [id number] [facility] 2023-11-29 09:40:00 2023-11-29 09:40:00 Outpatient R OBI-ANTELMO BLANCA OBI-ANTELMO , [facility] [id number] [facility] 2023-11-18 11:00:00 2023-11-18 11:00:00 Outpatient R OBI-ANTELMO BLANCA OBI-ANTELMO , [facility] [id number] [facility] 2023-11-11 09:00:00 2023-11-11 09:00:00 Outpatient R OBI-ANTELMO BLANCA OBI-ANTELMO , [facility] [id number] [facility] 2023-10-28 00:00:00 2023-10-28 00:00:00 Patient Secure Msg Doctor Unassigned, [facility] 1.2.840.114 350.1.13.10 4.2.7.2.686 [id number] [facility] 2023-10-11 11:15:00 2023-10-11 11:30:00 Dye Penetrant Testing Technician Visit 2, [facility] 1.2.840.114 350.1.13.10 4.2.7.2.686 [id number] [facility] 2023-10-11 10:00:00 2023-10-11 10:59:04 Outpatient R OBI-ANTELMO BLANCA OBI-ANTELMO , [facility] [id number] [facility] 2023-10-11 10:00:00 2023-10-11 10:59:04 [facility] [id number] 350.1.13.10 4.2.7.2.686 [id number] [facility] 2023-10-11 00:00:00 2023-10-11 00:00:00 Orders Only Doctor Unassigned, [facility] 1.2840.114 350.1.13.10 4.2.7.2.686 [id number] [facility] 2023-07-29 00:00:00 2023-07-29 00:00:00 Telephone Adum, Dolores Aiyana [facility] [id number] 350.1.13.10 4.2.7.2.686 [id number] [facility] 2023-07-22 09:20:00 2023-07-22 09:20:00 Outpatient R OBI-ANTELMO , BLANCA OBI-ANTELMO , [facility] [id number] [facility] 2023-07-16 10:15:00 2023-07-16 10:30:00 Dye Penetrant Testing Technician Visit 2, [facility] AdKerri sellersian Aiyana [facility] 1.2.84.114 350.1.13.10 4.2.7.2.686 [id number] [facility] 2023-07-16 10:15:00 2023-07-16 10:27:15 Outpatient R ADD[address]ES [facility] [id number] [facility] 2023-07-16 09:45:00 2023-07-16 10:13:18 Routine Visit AdDolores sellers [facility] [id number] 350.1.13.10 4.2.7.2.686 [id number] [facility] 2023-06-22 11:15:00 2023-06-22 11:50:05 Outpatient R ADUM, DOLORES [facility] [id number] [facility] 2023-06-22 11:15:00 2023-06-22 11:50:05 Routine Visit Adum, [facility] 1.2.840.114 350.1.13.10 4.2.7.2.686 [id number] [facility] 2023-06-01 10:00:00 2023-06-01 10:19:11 Outpatient R ADUM, DOLORES [facility] [id number] [facility] 2023-06-01 10:00:00 2023-06-01 10:19:11 Nurse Visit Nurse, [facility] Adum, Dolores [facility] 1.2.840.114 350.1.13.10 4.2.7.2.686 [id number] [facility] 2023-05-25 05:57:00 2023-05-26 18:30:00 Inpatient P ADUM, DOLORES [facility] [id number] [facility] 2023-05-25 05:57:00 2023-05-26 18:30:00 Hospital Encounter Adum, Dolores Bronson [facility] 1.2840.114 350.1.13.10 4.2.7.2.686 [id number] [facility] 2023-05-26 00:00:00 2023-05-26 00:00:00 Telephone Adum, Dolores [facility] 1.2.840.114 350.1.13.10 4.2.7.2.686 [id number] [facility] 2023-05-26 00:00:00 2023-05-26 00:00:00 Telephone Adum, Dolores [facility] 1.2.840.114 350.1.13.10 4.2.7.2.686 [id number] [facility] 2023-05-25 08:00:00 2023-05-25 10:14:00 Surgery AdDolores sellers [facility] 1.2840.114 350.1.13.10 4.2.7.2.686 [id number] [facility] 2023-05-25 08:05:00 2023-05-25 09:50:00 Anesthesia Event ReneElianeOdette Cook, Sreekanth Del Valle [facility] 1.20.114 350.1.13.10 4.2.7.2.686 [id number] [facility] 2023-05-24 10:45:00 2023-05-24 11:00:00 Dye Penetrant Testing Technician Visit Pob, [facility] Main Admar[facility] 1.2.114 350.1.13.10 4.2.7.2.686 [id number] [facility] 2023-05-24 10:45:00 2023-05-24 10:45:[address] [facility] [id number] [facility] 2023-05-21 10:00:00 2023-05-21 10:53:[address] [facility] [id number] [facility] 2023-05-21 10:00:00 2023-05-21 10:53:47 Routine Visit Room, [facility] Nst Admarlo [facility] PROFESSIO NAL BUILDING 1.2.114 350.1.13.10 4.2.7.2.686 [id number] 134 [id number] [facility] 2023-05-21 00:00:00 2023-05-21 00:00:00 Orders Only Doctor Unassigned, [place] [facility] 1.20.114 350.1.13.10 4.2.7.2.686 [id number] [id number] [facility] 2023-05-19 09:00:00 2023-05-19 11:06:35 Outpatient R DOLORES ALCAZAR [facility] [id number] [facility] 2023-05-19 09:00:00 2023-05-19 11:06:35 Routine Visit 1, [facility] Room [facility]Dolores [facility] 1.840.114 350.1.13.10 4.2.7.2.686 [id number] 134 [id number] [facility] 2023-05-19 10:00:00 2023-05-19 10:00:[address] [facility] [id number] [facility] 2023-05-18 10:00:00 2023-05-18 10:00:[address] [facility] [id number] [facility] 2023-05-17 09:00:00 2023-05-17 11:39:25 [facility] 1..840.114 350.1.13.10 4.2.7.2.686 [id number] 134 [id number] [facility] 2023-05-17 09:30:00 2023-05-17 10:32:10 Outpatient P GI VANCE SHANNON [facility] [id number] [facility] 2023-05-17 09:30:00 2023-05-17 10:32:10 Dye Penetrant Testing Technician Visit Ultrasound, Jens-Gi Lazcano [facility] SPECIAL AGENT [facility]3] 1.840.114 350.1.13.10 4.2.7.2.686 [id number] [facility] 2023-05-14 08:00:00 2023-05-14 08:28:[address] [facility] [id number] [facility] 2023-05-14 08:00:00 2023-05-14 08:15:00 Dye Penetrant Testing Technician Visit Lab, Jens Slaughter Ad, [facility] 1.114 350.1.13.10 4.2.7.2.686 [id number] [facility] 2023-05-12 09:00:00 2023-05-12 10:08:52 Outpatient R AD, [facility] [id number] [facility] 2023-05-12 09:00:00 2023-05-12 10:08:52 Routine Visit 1, [facility] 1.114 350.1.13.10 4.2.7.2.686 [id number] 134 [id number] [facility] 2023-05-05 08:00:00 2023-05-05 09:19:38 Outpatient R ADUM, [facility] [id number] [facility] 2023-05-05 08:00:00 2023-05-05 09:19:38 Routine Visit 1, [facility] 1.114 350.1.13.10 4.2.7.2.686 [id number] 134 [id number] [facility] 2023-04-28 10:00:00 2023-04-28 11:20:17 Outpatient R ADUM, [facility] [id number] [facility] 2023-04-28 10:00:00 2023-04-28 11:20:17 Routine Visit 1, [facility], [facility] 1.114 350.1.13.10 4.2.7.2.686 [id number] 134 [id number] [facility] 2023-04-21 10:00:00 2023-04-21 11:11:36 Routine Visit 1, Norberto Nst Room Ad [facility] 1.114 350.1.13.10 4.2.7.2.686 [id number] 134 [id number] [facility] 2023-04-21 10:00:00 2023-04-21 11:11:[address] [facility] [id number] [facility] 2023-04-20 00:00:00 2023-04-20 00:00:00 Telephone Ad, [facility] 1..114 350.1.13.10 4.2.7.2.686 [id number] 134 [id number] [facility] 2023-04-19 13:30:00 2023-04-19 13:55:[address] [facility] [id number] [facility] 2023-04-19 13:30:00 2023-04-19 13:55:32 [facility] 1.2114 350.1.13.10 4.2.7.2.686 [id number] 134 [id number] [facility] 2023-04-08 08:30:00 2023-04-08 08:30:[address] [facility] [id number] [facility] 2023-04-07 16:15:00 2023-04-07 16:15:00 Routine Visit Ad [facility] 1..114 350.1.13.10 4.2.7.2.686 [id number] 134 [id number] [facility] 2023-04-07 16:15:00 2023-04-07 11:10:[address] [facility] [id number] [facility] 2023-04-07 00:00:00 2023-04-07 00:00:00 Orders Only Doctor Unassigned, [place] [facility] 1.84.114 350.1.13.10 4.2.7.2.686 [id number] [id number] [facility] 2023-04-07 00:00:00 2023-04-07 00:00:[address] [facility] 1..114 350.1.13.10 4.2.7.2.686 [id number] 134 [id number] [facility] 2023-03-24 14:45:00 2023-03-24 15:40:[address] [facility] [id number] [facility] 2023-03-24 14:45:00 2023-03-24 15:40:19 Routine Visit Ottoniel [facility] 1.84.114 350.1.13.10 4.2.7.2.686 [id number] 134 [id number] [facility] 2023-03-24 13:45:00 2023-03-24 13:45:[address] [facility] [id number] [facility] 2023-03-22 08:00:00 2023-03-22 11:49:[address] [facility] [id number] [facility] 2023-03-22 08:00:00 2023-03-22 08:15:00 Dye Penetrant Testing Technician Visit Lab, Jens - Sukhjinder Alcazar [facility] [place]?STACEYSameera [facility] 1.840.114 350.1.13.10 4.2.7.2.686 [id number] [facility] 2023-03-10 16:00:00 2023-03-10 16:32:[address] [facility] [id number] [facility] 2023-03-10 16:00:00 2023-03-10 16:32:46 Routine Visit Adum, [facility] 1.2840.114 350.1.13.10 4.2.7.2.686 [id number] 134 [id number] [facility] 2023-03-10 00:00:00 2023-03-10 00:00:00 Orders Only Doctor Unassigned, [place] [facility] 1.2840.114 350.1.13.10 4.2.7.2.686 [id number] [facility] 2023-03-09 09:00:00 2023-03-09 12:03:38 Outpatient R ADUM, [facility] [id number] [facility] 2023-03-09 09:00:00 2023-03-09 09:15:00 Dye Penetrant Testing Technician Visit Lab, Jens Alcazar, [facility]?FABIAN [facility] MED[facility] OFF[facility] 1..114 350.1.13.10 4.2.7.2.686 [id number] 353 [id number] [facility] 2023-02-17 13:00:00 2023-02-17 13:12:01 Outpatient R ADUM, [facility] [id number] [facility] 2023-02-17 13:00:00 2023-02-17 13:12:01 Routine Visit Adum, [facility] 1.2.114 350.1.13.10 4.2.7.2.686 [id number] 134 [id number] [facility] 2023-02-03 15:00:00 2023-02-03 16:00:00 Dye Penetrant Testing Technician Visit Ultrasound, Heath Longoria [facility] SPECIAL AGENT [facility]3] 1.20.114 350.1.13.10 4.2.7.2.686 [id number] [facility] 2023-02-03 15:00:00 2023-02-03 15:00:00 Outpatient P HEATH GALLO [facility] [id number] [facility] 2023-01-20 16:00:00 2023-01-20 16:32:[address] [facility] [id number] [facility] 2023-01-20 16:00:00 2023-01-20 16:32:43 Routine Visit [facility] 1..840.114 350.1.13.10 4.2.7.2.686 [id number] 134 [id number] [facility] 2022-12-24 13:30:00 2022-12-24 13:45:00 Dye Penetrant Testing Technician Visit Lab, Ang - [facility] 1..840.114 350.1.13.10 4.2.7.2.686 [id number] 353 [id number] [facility] 2022-12-24 13:30:00 2022-12-24 13:30:[address] [facility] [id number] [facility] 2022-12-23 10:00:00 2022-12-23 10:35:[address] [facility] [id number] [facility] 2022-12-23 10:00:00 2022-12-23 10:35:37 Routine Visit [facility] 1..840.114 350.1.13.10 4.2.7.2.686 [id number] 134 [id number] [facility] 2022-12-08 00:00:00 2022-12-08 00:00:[address] 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 [id number] [facility] 2022-11-30 00:00:00 2022-11-30 00:00:00 Orders Only Doctor Unassigned, [place] [facility] 1.114 350.1.13.10 4.2.7.2.686 [id number] [id number] [facility] 2022-11-25 11:15:00 2022-11-25 11:38:[address] [facility] [id number] [facility] 2022-11-25 11:15:00 2022-11-25 11:38:29 Routine Visit Ottoniel [facility] 1.114 350.1.13.10 4.2.7.2.686 [id number] 134 [id number] [facility] 2022-11-19 09:00:00 2022-11-19 10:06:27 Dye Penetrant Testing Technician Visit Lab, Jens - Db Ottoniel, [facility] MEDICAL OFFICE BUILD[facility] 1.114 350.1.13.10 4.2.7.2.686 [id number] 353 [id number] [facility] 2022-11-19 09:00:00 2022-11-19 09:00:00 Outpatient R ADUM, DOLORES [facility] [id number] [facility] 2022-10-27 14:00:00 2022-10-27 15:35:[address] [facility] [id number] [facility] 2022-10-27 14:00:00 2022-10-27 15:35:40 Initial Visit Dolores Alcazar [facility] 1.114 350.1.13.10 4.2.7.2.686 [id number] 134 [id number] [facility] 2022-10-27 00:00:00 2022-10-27 00:00:00 Orders Only Doctor Unassigned, [place] [facility] 1.840.114 350.1.13.10 4.2.7.2.686 [id number] [id number] [facility] 2021-01-14 14:30:00 2021-01-14 14:30:00 Outpatient Maximo RICCI [facility] [id number] [facility] 2020-12-30 09:00:00 2020-12-30 09:00:00 Outpatient Maximo RICCI [facility] [id number] [facility] 2020-12-07 13:15:00 2020-12-07 13:15:[address] [facility] [id number] [facility] 2020-11-25 00:00:00 2020-11-25 00:00:00 RefKindra Skinner [facility] 1.840.114 350.1.13.10 4.2.7.2.686 [id number] 134 [id number] [facility] 2020-11-16 13:20:00 2020-11-16 13:20:[address] [facility] [id number] [facility] 2020-07-02 11:06:01 2020-07-02 11:21:01 Routine Visit Eugene Ricci [facility] Building 1.2.840.114 350.1.13.10 4.2.7.2.686 [id number] 134 [id number] 2020-07-02 11:06:01 2020-07-02 11:21:01 [facility] 1.2.840.114 350.1.13.10 4.2.7.2.686 [id number] 134 [id number] [facility] 2020-07-02 11:00:00 2020-07-02 11:00:00 [facility] [id number] [facility] 2020-07-02 00:00:00 2020-07-02 00:00:00 Orders Only Doctor Unassigned, [place] [facility] 1.2840.114 350.1.13.10 4.2.7.2.686 [id number] [id number] 2020-07-02 00:00:00 2020-07-02 00:00:00 Orders Only Doctor Unassigned, [place] [facility] 1.2.840.114 350.1.13.10 4.2.7.2.686 [id number] [id number] [facility] 2020-06-14 00:00:00 2020-06-14 00:00:00 Telephone Kindra Griggs [facility] 1.2.840.114 350.1.13.10 4.2.7.2.686 [id number] 134 [id number] [facility] 2020-06-14 00:00:00 2020-06-14 00:00:00 Orders Only Doctor Unassigned, [place] [facility] 1.2840.114 350.1.13.10 4.2.7.2.686 [id number] [id number] [facility] 2020-06-14 00:00:00 2020-06-14 00:00:00 Telephone Kindra Griggs [facility] Building 1.2.840.114 350.1.13.10 4.2.7.2.686 [id number] 134 [id number] 2020-06-14 00:00:00 2020-06-14 00:00:00 Orders Only Doctor Unassigned, [place] [facility] 1.2.840.114 350.1.13.10 4.2.7.2.686 [id number] [id number] 2020-06-11 14:14:54 2020-06-11 14:37:51 Nurse Visit Nurse, [facility] Kindra Griggs [facility] 1.2.840.114 350.1.13.10 4.2.7.2.686 [id number] 134 [id number] [facility] 2020-06-11 14:14:54 2020-06-11 14:37:51 Nurse Visit Nurse, [facility] 1.2.840.114 350.1.13.10 4.2.7.2.686 [id number] 134 [id number] 2020-06-11 14:00:00 2020-06-11 14:00:[address] [facility] [id number] [facility] 2020-06-03 05:33:00 2020-06-04 18:30:00 Hospital Encounter Kindra Griggs [facility] 1.2.840.114 350.1.13.10 4.2.7.2.686 [id number] [facility] 2020-06-03 05:33:00 2020-06-04 18:30:00 Hospital Encounter Kindra Griggs [facility] 1.2.840.114 350.1.13.10 4.2.7.2.686 [id number] 2020-06-03 05:33:00 2020-06-03 05:33:00 Outpatient P [facility] [id number] [facility] 2020-06-03 00:00:00 2020-06-03 00:00:00 Orders Only Doctor Unassigned, [place] [facility] 1.2.840.114 350.1.13.10 4.2.7.2.686 [id number] [id number] [facility] 2020-06-03 00:00:00 2020-06-03 00:00:00 Orders Only Doctor Unassigned, [place] [facility] 1.2.840.114 350.1.13.10 4.2.7.2.686 [id number] [id number] 2020-05-31 10:58:53 2020-05-31 11:13:53 Laboratory Only Only, Adc Test Kindra Griggs [facility] 1.2.840.114 350.1.13.10 4.2.7.2.686 [id number] [facility] 2020-05-31 10:15:00 2020-05-31 10:15:[address] [facility] [id number] [facility] 2020-05-29 00:00:00 2020-05-29 00:00:00 Telephone Kindra Griggs [facility] 1.2840.114 350.1.13.10 4.2.7.2.686 [id number] 134 [id number] [facility] 2020-05-28 16:00:11 2020-05-28 16:49:53 Routine Visit Kindra Griggs [facility] 1.2840.114 350.1.13.10 4.2.7.2.686 [id number] 134 [id number] [facility] 2020-05-28 16:00:11 2020-05-28 16:49:53 Routine Visit Kindra Griggs [facility] 1.2.840.114 350.1.13.10 4.2.7.2.686 [id number] 134 [id number] 2020-05-28 15:53:23 2020-05-28 16:08:23 Dye Penetrant Testing Technician Visit 2, Adc Lab Kindra Griggs [facility] Building 1.2.840.114 350.1.13.10 4.2.7.2.686 [id number] [facility] 2020-05-28 16:00:00 2020-05-28 16:00:00 Outpatient R KINDRA GRIGGS [facility] [id number] [facility] 2020-05-23 00:00:00 2020-05-23 00:00:00 Prep For Surgery Kindra Griggs [facility] Building 1.2.840.114 350.1.13.10 4.2.7.2.686 [id number] 134 [id number] [facility] 2020-05-22 16:09:56 2020-05-22 17:21:44 Routine Visit Kindra Griggs [facility] 1.2.840.114 350.1.13.10 4.2.7.2.686 [id number] 134 [id number] [facility] 2020-05-22 16:15:00 2020-05-22 16:15:00 Outpatient R KINDRA GRIGGS [facility] [id number] [facility] 2020-05-20 11:15:00 2020-05-20 11:15:00 Outpatient R EU[address]E RICCI [facility] [id number] [facility] 2020-05-20 10:31:01 2020-05-20 10:46:01 Dye Penetrant Testing Technician Visit 2, Adc [facility] 1.2.840.114 350.1.13.10 4.2.7.2.686 [id number] [facility] 2020-05-06 15:51:49 2020-05-20 10:35:13 Routine Visit Kindra Griggs [facility] Building 1.2.840.114 350.1.13.10 4.2.7.2.686 [id number] 134 [id number] [facility] 2020-05-06 16:00:00 2020-05-06 16:00:00 Outpatient R KINDRA GRIGGS [facility] [id number] [facility] 2020-05-02 09:00:00 2020-05-02 09:00:00 Outpatient R [facility] [id number] [facility] 2020-04-19 16:00:00 2020-04-19 16:00:00 Outpatient R [facility] [id number] [facility] 2020-04-18 11:00:18 2020-04-18 11:15:18 Routine Visit Eugene Ricci [facility] 1.2.840.114 350.1.13.10 4.2.7.2.686 [id number] 134 [id number] [facility] 2020-04-18 10:45:00 2020-04-18 10:45:00 Outpatient R EU[address]E RICCI [facility] [id number] [facility] 2020-04-18 00:00:00 2020-04-18 00:00:00 Letter (Out) Kindra Griggs [facility] 1.2.840.114 350.1.13.10 4.2.7.2.686 [id number] 134 [id number] [facility] 2020-04-18 00:00:00 2020-04-18 00:00:00 Letter (Out) Kindra Griggs [facility] 1.2.840.114 350.1.13.10 4.2.7.2.686 [id number] 134 [id number] [facility] 2020-04-05 16:00:00 2020-04-05 16:00:00 [facility] [id number] [facility] 2020-04-05 14:13:39 2020-04-05 14:45:49 Routine Visit Kindra Griggs [facility] 1.2.840.114 350.1.13.10 4.2.7.2.686 [id number] 134 [id number] [facility] 2020-04-05 14:15:00 2020-04-05 14:15:00 Outpatient R KINDRA GRIGGS [facility] [id number] [facility] 2020-03-29 08:15:00 2020-03-29 08:15:00 Outpatient R KINDRA GRIG[address] [facility] [id number] [facility] 2020-03-26 13:00:00 2020-03-26 13:00:00 Outpatient R KINDRA GRIGGS [facility] [id number] [facility] 2020-03-26 09:24:04 2020-03-26 09:39:04 Telemedici ne Visit Kindra Griggs [facility] 1.2.840.114 350.1.13.10 4.2.7.2.686 [id number] 134 [id number] [facility] 2020-03-15 15:37:33 2020-03-15 16:07:33 Dye Penetrant Testing Technician Visit Ultrasound, Adc [facility] BurkeEugene cordero [facility] 1.2.840.114 350.1.13.10 4.2.7.2.686 [id number] 134 [id number] [facility] 2020-03-15 10:34:25 2020-03-15 10:49:25 Dye Penetrant Testing Technician Visit 2, Adc Lab [facility] 1.2.840.114 350.1.13.10 4.2.7.2.686 [id number] [facility] 2020-03-15 08:54:47 2020-03-15 09:40:37 Routine Visit Eugene Ricci [facility] Building 1.2.840.114 350.1.13.10 4.2.7.2.686 [id number] 134 [id number] [facility] 2020-03-15 08:45:00 2020-03-15 08:45:00 Outpatient R EU[address]E RICCI [facility] [id number] [facility] 2020-02-14 11:30:00 2020-02-14 11:30:00 Outpatient R KINDRA GRIGGS [facility] [id number] [facility] 2020-02-14 08:14:55 2020-02-14 08:29:55 Telemedici ne Visit Kindra Griggs [facility] Building 1..840.114 350.1.13.10 4.2.7.2.686 [id number] 134 [id number] [facility] 2020-02-05 09:45:00 2020-02-05 09:45:00 Outpatient R KINDRA GRIGGS [facility] [id number] [facility] 2020-02-04 09:09:34 2020-02-04 09:29:34 Laboratory Only Lab, Adc Fam Pob Estephania Puentes [facility] Building One 1..840.114 350.1.13.10 4.2.7.2.686 [id number] [facility] 2020-02-04 09:00:00 2020-02-04 09:00:[address] [facility] [id number] [facility] 2020-02-01 00:00:00 2020-02-01 00:00:00 Telephone AnsonKindra [facility] 1..840.114 350.1.13.10 4.2.7.2.686 [id number] 134 [id number] [facility] 2020-01-25 13:28:32 2020-01-25 13:43:32 Dye Penetrant Testing Technician Visit 2, Adc Lab Griggs [facility] Building 1.84.114 350.1.13.10 4.2.7.2.686 [id number] [facility] 2020-01-25 13:30:00 2020-01-25 13:30:00 Outpatient R KINDRA GRIGGS [facility] [id number] [facility] 2020-01-25 00:00:00 2020-01-25 00:00:00 Orders Only Doctor Unassigned, [place] [facility] 1..114 350.1.13.10 4.2.7.2.686 [id number] [facility] 2020-01-23 13:49:51 2020-01-23 15:04:51 Dye Penetrant Testing Technician Visit Ultrasound, Jatinder Monroe [facility] SPECIAL AGENT [facility]3] 1..114 350.1.13.10 4.2.7.2.686 [id number] [facility] 2020-01-23 14:00:00 2020-01-23 14:00:[address] [facility] [id number] [facility] 2020-01-05 07:55:00 2020-01-05 09:38:04 Telemedici ne Visit Keiry [facility] 1.84.114 350.1.13.10 4.2.7.2.686 [id number] 134 [id number] [facility] 2020-01-05 09:15:00 2020-01-05 09:15:00 Outpatient R KEIRY [facility] [id number] [facility] 2020-01-05 00:00:00 2020-01-05 00:00:00 Case Management Keiry [facility] 1.84.114 350.1.13.10 4.2.7.2.686 [id number] 134 [id number] [facility] 2020-01-02 11:15:00 2020-01-02 11:15:[address] [facility] [id number] [facility] 2019-12-14 00:00:00 2019-12-14 00:00:00 Telephone [facility] [id number] 350.1.13.10 4.2.7.2.686 [id number] 134 [id number] [facility] 2019-12-14 00:00:00 2019-12-14 00:00:00 Telephone Kindra Griggs [facility] 1.2.840.114 350.1.13.10 4.2.7.2.686 [id number] 134 [id number] [facility] 2019-12-11 10:00:00 2019-12-11 10:00:[address] [facility] [id number] [facility] 2019-12-11 00:00:00 2019-12-11 00:00:00 Telephone Kindra Griggs [facility] [id number] 350.1.13.10 4.2.7.2.686 [id number] 134 [id number] [facility] 2019-12-07 00:00:00 2019-12-07 00:00:00 Telephone Kindra Griggs [facility] [id number] 350.1.13.10 4.2.7.2.686 [id number] 134 [id number] [facility] 2019-12-04 09:30:00 2019-12-04 09:30:00 Outpatient R [facility] [id number] [facility] Results Test Description Test Time Test Comments Results Result [id number] 12:26:30* Test Item Value Reference Range Interpretation Comme nts GLU FASTNG (test code = 3187874738) 93 mg/dL 70-110 Lab Interpretation (test cod e = 26272-3) Normal [facility] GLUCOSE (AUTOMATED)2023-05-25 11:27:27* Test Item Value Reference Range Interpretation Comme nts POCT GLU (test code = 7658849899) 87 mg/dL 70-110 Lab Interpretation (test cod e = 53779-1) Normal [facility] GLUCOSE (AUTOMATED)2023-05-25 11:27:27* Test Item Value Reference Range Interpretation Comme nts POCT GLU (test code = 3590412121) 87 mg/dL 70-110 Lab Interpretation (test cod e = 84558-5) Normal [facility] URINALYSIS W/O SPECIFIC [id number] 14:06:00* Test Item Value Reference Range Interpretation [...] = 3257) N/A Negative - Negati ve [facility] URINALYSIS W/O SPECIFIC [id number] 14:14:00* Test Item Value Reference Range Interpretation [...] = 3257) n/a Negative - Negati ve [facility] URINALYSIS W/O SPECIFIC [id number] 14:59:00* Test Item Value Reference Range Interpretation [...] = 3257) n/a Negative - Negati ve [facility] URINALYSIS W/O SPECIFIC [id number] 14:59:00* Test Item Value Reference Range Interpretation [...] = 3257) n/a Negative - Negati ve [facility] URINALYSIS W/O SPECIFIC [id number] 14:59:00* Test Item Value Reference Range Interpretation [...] = 3257) n/a Negative - Negati ve [facility] URINALYSIS W/O SPECIFIC [id number] 16:12:00* Test Item Value Reference Range Interpretation [...] = 3257) N/A Negative - Negati ve [facility] URINALYSIS W/O SPECIFIC [id number] 15:04:00* Test Item Value Reference Range Interpretation [...] = 3257) n/a Negative - Negati ve [facility] URINALYSIS W/O SPECIFIC [id number] 15:30:00* Test Item Value Reference Range Interpretation [...] = 3257) n/a Negative - Negati ve [facility] URINALYSIS W/O SPECIFIC [id number] 20:00:00* Test Item Value Reference Range Interpretation [...] = 3257) n/a Negative - Negati ve [facility] URINALYSIS W/O SPECIFIC [id number] 20:00:00* Test Item Value Reference Range Interpretation [...] = 3257) n/a Negative - Negati ve [facility] URINALYSIS W/O SPECIFIC [id number] 20:00:00* Test Item Value Reference Range Interpretation [...] = 3257) n/a Negative - Negati ve [facility] URINALYSIS W/O SPECIFIC [id number] 20:00:00* Test Item Value Reference Range Interpretation [...] = 3257) n/a Negative - Negati ve [facility] URINALYSIS W/O SPECIFIC [id number] 21:00:00* Test Item Value Reference Range Interpretation [...] = 3257) n/a Negative - Negati ve [facility] URINALYSIS W/O SPECIFIC [id number] 21:00:00* Test Item Value Reference Range Interpretation [...] = 3257) n/a Negative - Negati ve [facility] URINALYSIS W/O SPECIFIC [id number] 18:14:00* Test Item Value Reference Range Interpretation [...] = 3257) n/a Negative - Negati ve [facility] URINALYSIS W/O SPECIFIC [id number] 21:07:00* Test Item Value Reference Range Interpretation [...] = 3257) n/a Negative - Negati ve [facility] URINALYSIS W/O SPECIFIC [id number] 15:09:00* Test Item Value Reference Range Interpretation [...] = 3257) N/A Negative - Negati ve [facility] URINALYSIS W/O SPECIFIC [id number] 16:22:00* Test Item Value Reference Range Interpretation [...] = 3257) N/A Negative - Negati ve [facility] URINALYSIS W/O SPECIFIC [id number] 16:22:00* Test Item Value Reference Range Interpretation [...] = 3257) N/A Negative - Negati ve [facility] URINALYSIS W/O SPECIFIC [id number] 19:16:00* Test Item Value Reference Range Interpretation [...] = 3257) N/A Negative - Negati ve [facility] [id number] 19:16:00* Test Item Value Reference Range Interpretation Comme nts POCT PREG (test code = 1605) Positive On board controls acceptable with C Line (test code = 3574) Yes POCT PREG LOT # (test code = 3573) POCT PREG TEST DATE ( test code = 3576) [facility] [id number] 17:20:00* Test Item Value Reference Range Interpretation Comme nts POCT PREG (test code = 1605) Negative On board controls acceptable with C Line (test code = 3574) Yes POCT PREG LOT # (test code = 3575) POCT PREG TEST DATE ( test code = 3576) Lab Interpretation (test cod e = 17263-2) Normal [facility] with [id number] 10:06:00* Test Item Value Reference Range Interpretation [...] 34.4 g/dL 31.6-35.1 RDW-SD (test code = 60754-8) 40.2 fL 39-49.9 RDW-CV (test code = 788-0) 12.6 % 12-15.5 PLT (test code = 777-3) See_Comment [Automated messa ge] The system which generated this result transmitted reference range: 166 - 358 10*3/?L. The reference range was not used to interpret this result as normal/abnormal. MPV (test code = 06263-6) 10.4 fL 9.5-12.9 NRBC/100 WBC (test code = 9659580810) See_Comment [Automated me ssage] The system which generated this result transmitted reference range: 0.0 - 10.0 /100 WBCs. The reference range was not used to interpret this result as normal/abnormal. NRBC x10^3 (test code = 3576358267) <0.01 See_Comment [Automated messa ge] The system which generated this result transmitted reference range: 10*3/?L. The reference range was not used to interpret this result as normal/abnormal. GRAN MAT (NEUT) % (test code = 770-8) 67.7 % IMM GRAN % (test code = 7837096815) 0.20 % LYMPH % (test code = 736-9) 26.2 % MONO % (test code = 5905-5) 4.6 % EOS % (test code = 713-8) 1.1 % BASO % (test code = 706-2) 0.2 % GRAN MAT x10^3(ANC) (test code = 3203283069) 5.41 10*3/uL 1.88-7.09 IMM GRAN x10^3 (test code = 6285533633) <0.03 0-0.06 LYMPH x10^3 (test code = 731-0) 2.10 10*3/uL 1.32-3.29 MONO x10^3 (test code = 742-7) 0.37 10*3/uL 0.33-0.92 EOS x10^3 (test code = 711-2) 0.09 10*3/uL 0.03-0.39 BASO x10^3 (test code = 704-7) <0.03 0.01-0.07 Lab Interpretation (test code = 40033-4) [facility] - [id number] 06:12:00* Test Item Value Reference Range Interpretation Comme nts RPR (Qualitative) (test code = 27782-5) Nonreactive Nonreactive Lab Interpretation (test cod e = 88450-1) [facility] IMMUNE [id number] 17:33:53* Test Item Value Reference Range Interpretation Comme nts RHIG CANDIDATE? (test code = 5055) No- see comment Patient is not a candidate for RhIg- Patient is Rh Positive.Performed at [facility] Laboratory Services - [facility] Blood [address] [place] [phone] Free: [phone] No. [id number] [facility]isco[facility]ATITIS B SURFACE [id number] 15:45:00 * Test Item Value Reference Range Interpretation Comme nts HBsAg Semi-Quantitative (olayinka t code = 5195-3) Negative Negative [facility] AG-AB WITH [id number] 14:03:00* Test Item Value Reference Range Interpretation Comme nts HIV Semi-quantitative (test code = 25939-1) Negative Negative JUAN FRANCISCO (test code = JUAN FRANCISCO) Non-reactive for HIV-1 antigen and HIV-1/HIV-2 antibodies. ?No laboratory evidence of HIV infection. ?Repeat in 2-4 weeks if acute HIV infection is suspected. [facility] Cord [id number] 13:53:00* Test Item Value Reference Range Interpretation Comme [facility] VEN[facility] BASE EXCESS, CORD (test code = 1127022625) mEq/L VENOUS PH, CORD (test code = 0053277942) 7.25-7.45 VENOUS PC02, CORD (test code = 0180195351) See_Comment [Automated messa ge] The system which generated this result transmitted reference range: 27 - 49 mmHg. The reference range was not used to interpret this result as normal/abnormal. VENOUS PO2, CORD (test code = 1811598051) See_Comment [Automated me ssage] The system which generated this result transmitted reference range: 17 - 41 mmHg. The reference range was not used to interpret this result as normal/abnormal. VENOUS BICARBONATE, CORD (test code = 9249270573) See_Comment [Automated messa ge] The system which generated this result transmitted reference range: 12 - 29 mEq/L. The reference range was not used to interpret this result as normal/abnormal. [facility] [id number] 13:50:00* Test Item Value Reference Range Interpretation Comme nts BASE EXCESS, CORD (test code = 3033207653) mEq/L AC PH, CORD (BEAKER) (test code = 5682553812) 7.18-7.38 PC02, CORD (test code = 1893162725) See_Comment [Automated messa ge] The system which generated this result transmitted reference range: 32 - 66 mmHg. The reference range was not used to interpret this result as normal/abnormal. PO2, CORD (test code = 7462098439) See_Comment [Automated messa ge] The system which generated this result transmitted reference range: 10 - 30 mmHg. The reference range was not used to interpret this result as normal/abnormal. BICARBONATE, CORD (test code = 1858722872) See_Comment [Automated messa ge] The system which generated this result transmitted reference range: 17 - 27 mEq/L. The reference range was not used to interpret this result as normal/abnormal. [facility] and Screen - ONCE [id number] 13:13:48* Test Item Value Reference Range Interpretation Comme [facility] ABO & RH (test code = 20) A Positive Performed at [facility] Laboratory [facility] Blood [address] Free: [phone] No. [id number] IAT (test code = 1185) Negative Performed at [facility] Blood [address] Free: [phone] No. [id number] [facility] WITH [id number] 12:08:00* Test Item Value Reference Range Interpretation Comme [facility] WBC (test code = 6690-2) See_Comment [Automated [...] 33.3 g/dL 31.6-35.1 RDW-SD (test code = 02422-2) 39.5 fL 39-49.9 RDW-CV (test code = 788-0) 12.6 % 12-15.5 PLT (test code = 777-3) See_Comment [Automated messa ge] The system which generated this result transmitted reference range: 166 - 358 10*3/?L. The reference range was not used to interpret this result as normal/abnormal. MPV (test code = 42011-8) 10.2 fL 9.5-12.9 NRBC/100 WBC (test code = 0525173267) See_Comment [Automated Etopus ssage] The system which generated this result transmitted reference range: 0.0 - 10.0 /100 WBCs. The reference range was not used to interpret this result as normal/abnormal. NRBC x10^3 (test code = 6578374537) <0.01 See_Comment [Automated messa ge] The system which generated this result transmitted reference range: 10*3/?L. The reference range was not used to interpret this result as normal/abnormal. GRAN MAT (NEUT) % (test code = 770-8) 61.3 % IMM GRAN % (test code = 2352479989) 0.30 % LYMPH % (test code = 736-9) 31.8 % MONO % (test code = 5905-5) 3.6 % EOS % (test code = 713-8) 2.4 % BASO % (test code = 706-2) 0.6 % GRAN MAT x10^3(ANC) (test code = 2958230663) 4.04 10*3/uL 1.88-7.09 IMM GRAN x10^3 (test code = 0523342222) <0.03 0-0.06 LYMPH x10^3 (test code = 731-0) 2.10 10*3/uL 1.32-3.29 MONO x10^3 (test code = 742-7) 0.24 10*3/uL 0.33-0.92 L EOS x10^3 (test code = 711-2) 0.16 10*3/uL 0.03-0.39 BASO x10^3 (test code = 704-7) 0.04 10*3/uL 0.01-0.07 Lab Interpretation (test code = 52033-1) Abnormal [facility] URINALYSIS W/O SPECIFIC [id number] 21:31:00* Test Item Value Reference Range Interpretation [...] = 3257) N/A Negative - Negati ve [facility] URINALYSIS W/O SPECIFIC [id number] 21:31:00* Test Item Value Reference Range Interpretation [...] = 3257) N/A Negative - Negati ve [facility] URINALYSIS W/O SPECIFIC [id number] 21:31:00* Test Item Value Reference Range Interpretation [...] N/A Negative - Negati ve [facility]>14 WEEKS US [id number] 22:27:09Limited USG for presentation: ?Cephalic Kindra Griggs MD ?05/22/2020 ?5:27 [facility] WEEKS US LIMITED 2020-05-22 22:27:09Limited USG for presentation: ?Cephalic Kindra Griggs MD ?05/22/2020 ?5:27 PM[facility]I URINALYSIS W/O SPECIFIC [id number] 21:32:00* Test Item Value Reference Range Interpretation [...] = 3257) n/a Negative - Negati ve [facility] URINALYSIS W/O SPECIFIC [id number] 21:32:00* Test Item Value Reference Range Interpretation [...] n/a Negative - [facility]ati ve [facility] W/O SPECIFIC [id number] 16:10:00* Test Item Value Reference Range Interpretation [...] n/a Negative - [facility]ati ve [facility] W/O SPECIFIC [id number] 19:32:00* Test Item Value Reference Range Interpretation [...] ve Lab Interpretation (test cod e = 26685-0) Normal [facility]iscoGlucose 1 Hour Post [id number] 18:01:00* Test Item Value Reference Range Interpretation Comme nts GLUC 1 HR (test code = 0446085273) 109 mg/dL 120-170 L Lab Interpretation (test cod e = 34929-1) Abnormal [facility] with [id number] 17:48:00* Test Item Value Reference Range Interpretation [...] 33.7 g/dL 31.6-35.1 RDW-SD (test code = 01689-7) 41.6 fL 39-49.9 RDW-CV (test code = 788-0) 12.3 % 12-15.5 PLT (test code = 777-3) See_Comment [Automated Unique Microguidesa ge] The system which generated this result transmitted reference range: 166 - 358 10*3/?L. The reference range was not used to interpret this result as normal/abnormal. MPV (test code = 43114-1) 9.6 fL 9.5-12.9 NRBC/100 WBC (test code = 3862360233) See_Comment [Automated Etopus ssage] The system which generated this result transmitted reference range: 0.0 - 10.0 /100 WBCs. The reference range was not used to interpret this result as normal/abnormal. NRBC x10^3 (test code = 2083678817) <0.01 See_Comment [Automated Unique Microgu[employer] ge] The system which generated this result transmitted reference range: 10*3/?L. The reference range was not used to interpret this result as normal/abnormal. GRAN MAT (NEUT) % (test code = 770-8) 74.3 % IMM GRAN % (test code = 3462074974) 0.40 % LYMPH % (test code = 736-9) 19.4 % MONO % (test code = 5905-5) 3.7 % EOS % (test code = 713-8) 1.8 % BASO % (test code = 706-2) 0.4 % GRAN MAT x10^3(ANC) (test code = 0662925839) 5.87 10*3/uL 1.88-7.09 IMM GRAN x10^3 (test code = 2223704735) 0.03 10*3/uL 0-0.06 LYMPH x10^3 (test code = 731-0) 1.53 10*3/uL 1.32-3.29 MONO x10^3 (test code = 742-7) 0.29 10*3/uL 0.33-0.92 L EOS x10^3 (test code = 711-2) 0.14 10*3/uL 0.03-0.39 BASO x10^3 (test code = 704-7) 0.03 10*3/uL 0.01-0.07 Lab Interpretation (test code = 16395-1) [facility]normal [facility] W/O SPECIFIC [id number] 14:15:00* Test Item Value Reference Range Interpretation [...] n/a Negative - Negati ve [facility] Notes Date/Time Note Provider Source 2023-10-11 11:15:00 Images from the original note were not included. Venipuncture collection performed by clean technique on the left anticubitus. Total of 1 attempts were made. Slight pressure and a bandage/dressing were applied to the site(s). The patient experienced no complications. The following specimens were processed according to instructions and sent to [facility] laboratories per lab order on 10/11/2023 : LT BLUE SST 1 RED LAV 2 PPT DK GREEN (LiHep) DK GREEN (SodH) SANDOVAL DK BLUE (K2) DK BLUE (S) ACD Blood Culture NIPT/NTD [facility] 2023-07-29 09:14:29 Called pt x2 regarding paperwork. Paperwork was faxed on 07.19.23, but is missing patient signature on second page. Called patient to inform, no answer, left message informing paperwork will be left at lead front desk agent for [employer]. Karina Hamlin MA 07/29/2023 9:16 AM [facility] 2023-04-23 16:01:19 Formatting of this n ote might be different from the original. Spoke to pharmacy. Will change Novolin N to Humulin N with same instructions. Pt advised. MARIA DE JESUS BUSH RN 04/23/2023 4:03 PM Maria De Jesus Bush RN [facility] 2023-04-21 10:00:00 Formatting of this n ote might be different from the original. Age: [age] year old GA: 32w4d 1. High-risk in third trimester - NON-STRESS TEST 2. 32 weeks gestation of - POCT URINALYSIS W/O SPECIFIC GRAVITY - NON-STRESS TEST 3. Insulin controlled gestational diabetes mellitus (GDM) in third trimester - She just started her insulin last night. She has had problems with insurance coverage Currently taking 15U of NPH @HS She forgot to bring in her BS log today -Advised to bring it in next week -NST today reactive Continue with weekly visit and NST for now - NON-STRESS TEST 4. Previous section complicating - opted for ERLTCS with salpingectomy JOHNATHAN in 1 week with NST Dolores Alcazar MD [facility] 2023-04-20 17:04:09 Formatting of this n ote might be different from the original. Spoke with patient, states that Maria De Jesus PAGE called and LM. Forwarding message. Gi Taylor RN 04/20/2023 5:04 PM [facility] 2023-04-20 16:50:54 Formatting of this n ote might be different from the original. Pt is returning a call to the clinic in regards to her insulin. Aidan Cardona [facility] 2023-04-07 16:15:00 Formatting of this n ote might be different from the original. Images from the original note were not included. Age: [age] year old GA: 30w4d 1. High-risk in second trimester 2. 30 weeks gestation of - No concerns today - PTL precautions and FKC's reviewed with patient Monitor for vaginal bleeding, loss of fluid, and/or contractions - Monitor for symptoms of preeclampsia (headache, visual disturbances, epigastric (under right ribs) pain, and increased blood pressure - If there is a perceived decrease in movement, monitor kick counts. Drink glass of water or juice and rest on left side for approximately two hours. If you feel 10 kicks (movements) over a period of two hours, this is normal. If you do not feel the fetus moving, present to OB clinic or antepartum unit at the [facility] - POCT URINALYSIS W/O SPECIFIC GRAVITY 3. Previous section complicating ERLTCS at 39 with sterilization 4. Insulin controlled gestational diabetes mellitus (GDM) in third trimester - BS reviewed. FSBS 2hr post BF 08/19, 2hr post lunch 0/12 2hr post dinner 12/17- reports that the elevated ones post dinner was her trying out meals. But fasting are elevated no matter what she eats - Will start insulin at night 15 units NPH HS - Patient to send me log next week for review - Will start NST @32 weeks- Growth at 34-36 wks. Delivery 38w depending on control JOHNATHAN in 2 weeks for visit and NST Dolores Alcazar MD [facility] 2023-04-07 12:00:53 Formatting of this n ote might be different from the original. Patient dropped of a dental clearance form that needs to be filled out and faxed back to [facility]. Form filled out, signed by Dr. Alcazar, and faxed to [facility]. Voicemail left for patient informing her of message. Will scan and upload a copy to [employer]. T [facility] 2023-03-24 14:45:00 Formatting of this n ote might be different from the original. Age: [age] year old GA: 28w4d 1. High-risk in second trimester - POCT URINALYSIS W/O SPECIFIC GRAVITY 2. 28 weeks gestation of PTL precautions and FKC's reviewed with patient Monitor for vaginal bleeding, loss of fluid, and/or contractions - Monitor for symptoms of preeclampsia (headache, visual disturbances, epigastric (under right ribs) pain, and increased blood pressure - If there is a perceived decrease in movement, monitor kick counts. Drink glass of water or juice and rest on left side for approximately two hours. If you feel 10 kicks (movements) over a period of two hours, this is normal. If you do not feel the fetus moving, present to OB clinic or antepartum unit at the [facility] 3. Previous section complicating ERLTCS with bilateral salpingectomy 4. Gestational diabetes mellitus (GDM), antepartum, gestational diabetes method of control unspecified Reviewed results and explained consistent with diabetes in [...] snacks per day. A moderate exercise is recommended. She understands that she might require medication- oral hypoglycemics or insulin to achieve adequate glycemic control if indicated as JOHNATHAN in 2 weeks or PRN Dolores Alcazar MD [facility] 2023-03-24 14:45:00 Addended by: AYDEE MCKEON on: 03/24/2023 03:53 PM Modules accepted: Orders [facility] 2023-03-24 14:45:00 Addended by: AYDEE MCKEON on: 03/24/2023 03:57 PM Modules accepted: Orders [facility] 2023-03-22 08:00:00 Formatting of this n ote is different from the original. Images from the original note were not included. Venipuncture collection performed by clean technique on the left anticubitus. Total of 4 attempts were made. Slight pressure and a bandage/dressing were applied to the site(s). The patient experienced no complications. The following specimens were processed according to instructions and sent to [facility] laboratories per lab order on 03/22/2023 : Given 100gm glucola. LT BLUE SST 4 RED LAV PPT DK GREEN (LiHep) DK GREEN (SodH) SANDOVAL DK BLUE (K2) DK BLUE (S) ACD Blood Culture NIPT/NTD [facility] 2023-03-10 16:00:00 Formatting of this n ote might be different from the original. Age: [age] year old GA: 26w4d JOHNATHAN +FM 1. High-risk in second trimester 2. 26 weeks gestation of -3rd trimester teaching done- reviewed S/S of PTL (contractions, leakage of fluid and Vaginal bleeding) and also FKC. Also dicussed B-H, pelvic and lower back pains- expectations and differences with S/S of PTL She plans to breast feed BC options reviewed- Salpingectomy Peds: Dr Mcmahon - POCT URINALYSIS W/O SPECIFIC GRAVITY 3. Previous section complicating - ERLTCS after 39 wks 4. Anemia of mother in , antepartum - ferrous sulfate (IRON, FERROUS SULFATE,) 325 mg (65 mg iron) tablet; Take 1 tablet by mouth in the morning and 1 tablet in the evening. Dispense: 60 tablet; Refill: 2 5. Abnormal maternal glucose tolerance, antepartum Reviewed results - 3 HR GLUCOSE TOLERANCE PANEL; Future - GLYCOSYLATED HEMOGLOBIN (A1C); Future 6. Encounter for sterilization education I discussed the risks, benefits and alternatives of [...] ligation surgery and has opted for bilateral salpingectomy." JOHNATHAN in 2 weeks or PRN Dolores Alcazar MD [facility] 2023-03-09 09:00:00 Formatting of this n ote might be different from the original. Per PT she fasting for labs. Loaded PT with 50mg of Fruit punch Glucola start 929 finished 930. T Marina Campos [facility] 2023-03-09 09:00:00 Formatting of this n ote might be different from the original. Lab orders Verified By Demetrius Morfin 03/09/2023 9:33 AM T [facility] 2023-03-09 09:00:00 Formatting of this n ote is different from the original. Images from the original note were not included. Venipuncture collection performed by clean technique on the left anticubitus. Total of 1 attempts were made. Slight pressure and a bandage/dressing were applied to the site(s). The patient experienced no complications. The following specimens were processed according to instructions and sent to [facility] laboratories per lab order on 03/09/2023 LT BLUE SST 2 RED 1 LAV 2 PPT DK GREEN (LiHep) DK GREEN (SodH) SANDOVAL DK BLUE (K2) DK BLUE (S) ACD Blood Culture NIPT/NTD [facility]
[2024-06-20] MEDS ORDERED: ONDANSETRON 4 MG/2 ML VIAL ONE ×5 (03:54→11:20)
[2024-06-20] MEDS ORDERED: NA CHLORIDE 0.9% 1,000 ML ONE ×2 (03:55→07:16)
[2024-06-20] MEDS ORDERED: MORPHINE 4 MG/ML SYR ONE ×2 (03:55→07:53)
[2024-06-20 04:35] LABS: Albumin 3.4 g/dL (3.4-5.0); Albumin/Globulin Ratio 0.5 (1.1-1.8); Anion Gap 13.4 mEq/L (5.0-15.0); Bilirubin Total 1.4 mg/dL (0.2-1.0); Globulin 6.5 g/dL (2.3-3.5); Potassium 3.4 mEq/L (3.5-5.1); Protein, Total 9.9 g/dL (6.4-8.2)
[2024-06-20 04:44] LABS: Absolute Basophils 0.1 K/uL (0-0.5); Absolute Lymphocytes (CBC) 0.9 K/uL (0.7-4.9); Absolute Monocytes 0.6 K/uL (0.1-1.3); Absolute Neutrophil 12.9 K/uL (1.8-8.0); Basophils % 0.5 % (0-1.3); Eosinophils % 0.2 % (0-4.4); Hematocrit 40.5 % (36.0-45.0); Hemoglobin 13.8 g/dL (12.0-15.0); Lymphocytes % 6.5 % (15.3-44.8); MCH 33.3 pg (27.0-35.0); MCHC 34.2 g/dL (32.0-36.0); MCV 97.6 fL (80-100); MPV 8.2 fL (7.6-11.3); Monocytes % 4.3 % (3.3-12.3); Neutrophils % 88.5 % (41.7-73.7); Platelets 195 thou/uL (152-406); RBC Red Blood Cell Count 4.15 M/uL (3.86-4.86); Red Cell Distribution Width 14.1 % (12.1-15.2)
[2024-06-20 04:51] LABS: Specific Gravity 1.024 (1.005-1.030)
[2024-06-20 04:52] LABS: Specific Gravity 1.024 (1.005-1.030); Sqamous Epithelial <5 /HPF (None Seen); Urine Bacteria None Seen /HPF (<20); Urine Bilirubin NEGATIVE (Negative); Urine Blood 2+ (Negative); Urine Clarity Extremely Turbid (Clear); Urine Color Yellow (Yellow); Urine Culture Reflex Order NOT NEEDED; Urine Glucose NEGATIVE (Negative); Urine Ketones TRACE (Negative); Urine Microscopic Reflex YN ORDER UMIC; Urine Mucus Slight /HPF (None Seen); Urine Nitrite NEGATIVE (Negative); Urine Protein 3+ (Negative); Urine RBC >50 /HPF (None Seen); Urine Urobilinogen 4+ (Over) (Normal); Urine WBC <5 /HPF (<5); Urine pH 8.5 (5.0-7.0)
[2024-06-20] MEDS ORDERED: KETOROLAC 30 MG/ML INJ ONE ×2 (04:59→10:44)
--- NOTE | 2024-06-20 05:01 | RAD REPORT ---
EXAM: US Abdomen Limited, Gallbladder CLINICAL HISTORY: The patient is 33 years old and is Female; ruq TECHNIQUE: Real-time ultrasound of the right upper quadrant with image documentation. COMPARISON: No relevant prior studies available. FINDINGS: Gallbladder: 2.2 cm gallstone in the gallbladder. No gallbladder wall thickening. No pericholecys tic fluid. Sonographic Dougherty sign is reportedly negative. Common bile duct: Common bile duct is normal. IMPRESSION: 2.2 cm gallstone in the gallbladder. No gallbladder wall thickening. No pericholecystic fluid. Electronically signed by: Sreekanth Grimaldo MD 06/20/2024 04:58 AM [facility] 8 Due to temporary technical issues with the PACS/Oncovisionibe reporting system, reports are being signed by the in-house radiologist without review as a courtesy to ensure prompt reporting the interpreting radiologist is fully responsible for the content of the report. Transcribed Date/Time: 06/20/2024 5:01 AM
[2024-06-20 05:16] LABS: Band Neutrophils 24 % (0-1); Blood Morphology Comment NOT SEEN (NOT SEEN); Differential Total Cells Count 100; Lymphocytes 11 % (15-42); Monocytes 2 % (0-10); Platelet Estimate ADEQ; Segmented Neutrophils 62 % (40-80)
--- NOTE | 2024-06-20 06:30 | RAD REPORT ---
EXAM: CT Abdomen and Pelvis With Intravenous Contrast CLINICAL HISTORY: The patient is 33 years old and is Female; ABD PAIN TECHNIQUE: Axial computed tomography images of the abdomen and pelvis with intravenous contrast. Sagittal and coronal reformatted images were created and reviewed. This CT exam was performed using one or more of the following dose reduction techniques: automated exposure control, adjustmen t of the mA and/or kV according to patient size, and/or use of iterative reconstruction technique. COMPARISON: No relevant prior studies available. FINDINGS: Lung bases: Unremarkable. No mass. No consolidation. ABDOMEN: Liver: Hepatomegaly with diffuse hepatic steatosis. Gallbladder and bile ducts: 2.1 cm gallstone in the gallbladder neck. No ductal dilation. Pancreas: Unremarkable. No mass. No ductal dilation. Spleen: Unremarkable. No splenomegaly. Adrenals: Unremarkable. No mass. Kidneys and ureters: Unremarkable. No solid mass. No hydronephrosis. Stomach and bowel: Unremarkable. No obstruction. No mucosal thickening. PELVIS: Appendix: No findings to suggest acute appendicitis. Bladder: Unremarkable. Reproductive: 3 cm the left ovarian cyst. No follow-up imaging is recommended. ABDOMEN and PELVIS: Intraperitoneal space: Unremarkable. No free air. No significant fluid collection. Bones/joints: No acute fracture. No dislocation. Soft tissues: Unremarkable. Vasculature: Unremarkable. No abdominal aortic aneurysm. Lymph nodes: Unremarkable. No enlarged lymph nodes. IMPRESSION: 1. Hepatomegaly with diffuse hepatic steatosis. 2. 2.1 cm gallstone in the gallbladder neck. Electronically signed by: Sreekanth Grimaldo MD 06/20/2024 05:42 AM [facility] 8 Due to temporary technical issues with the PACS/Cojoin reporting system, reports are being gabriela d by the in-house radiologist without review as a courtesy to ensure prompt reporting the interpreting radiologist is fully responsible for the content of the report. Transcribed Date/Time: 06/20/2024 6:30 AM
[2024-06-20] MEDS ORDERED: NA CHLORIDE 0.9% 100 ML ONE (06:33)
[2024-06-20] MEDS ORDERED: PIPERACIL/TAZO 3.375 GM VIAL IV ONE (06:33)
--- NOTE | 2024-06-20 06:43 | ER ---
Nurse's Notes [facility] Name: Cecelia Polk Age: 33 yrs Sex: Female : 1990 Arrival Date: 06/20/2024 Time: 03:18 Bed 8 Private MD: Diagnosis: Acute cholecystitis;Sepsis Presentation: 06/20 03:46 Chief complaint: Patient states: I have thrown up six times since 2029, i feel really bm8 dehyrated. Coronavirus screen: At this time, the client does not indicate any symptoms associated with coronavirus-19. Ebola Screen: Patient negative for fever greater than or equal to 101.5 degrees Fahrenheit, and additional compatible Ebola Virus Disease symptoms Patient denies exposure to infectious person. Patient denies travel to an Ebola-affected area in the 21 days before illness onset. No symptoms or risks identified at this time. Initial Sepsis Screen: Does the patient meet any 2 criteria? No. Patient's initial sepsis screen is negative. Does the patient have a suspected source of infection? No. Patient's initial sepsis screen is negative. Risk Assessment: Do you want to hurt yourself or someone else? Patient reports no desire to harm self or others. Onset of symptoms was June 19, 2024 at 20:30. 03:46 Method Of Arrival: Ambulatory bm8 03:46 Acuity: CRISTOBAL 3 bm8 Triage Assessment: 03:47 General: Appears in no apparent distress. uncomfortable, Behavior is calm, cooperative, bm8 appropriate for age. Pain: Complains of pain in abdomen Pain currently is 7 out of 10 on a pain scale. Quality of pain is described as pressure. EENT: No deficits noted. No signs and/or symptoms were reported regarding the EENT system. Neuro: No deficits noted. Level of Consciousness is awake, alert, obeys commands, Oriented to person, place, time, situation, Appropriate for age. Cardiovascular: Denies chest pain, Capillary refill < 3 seconds in bilateral fingers Patient's skin is warm and dry. Cardiovascular: Rhythm is sinus tachycardia. Respiratory: Airway is patent Respiratory effort is even, unlabored, Respiratory pattern is regular, symmetrical. GI: Abdomen is flat, non-distended, Pt is actively vomiting clear fluid, Bowel sounds present X 4 quads. Abdomen is tender to palpation in right upper quadrant and left upper quadrant Reports lower abdominal pain, upper abdominal pain, intolerance of fluids, intolerance of food, nausea, Pain is 7 out of 10 on a pain scale. vomiting. : No deficits noted. No signs and/or symptoms were reported regarding the genitourinary system. Derm: No deficits noted. No signs and/or symptoms reported regarding the dermatologic system. Musculoskeletal: No deficits noted. No signs and/or symptoms reported regarding the musculoskeletal system. 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 - Infectious Disease History:: Denies. - Social history:: Smoking status: Patient denies any tobacco usage or history of. Patient uses alcohol, Patient/guardian denies using street drugs. - Family history:: not pertinent. Screenin:50 [facility] ED Fall Risk Assessment (Adult) History of falling in the last 3 months, bm8 including since admission No falls in past 3 months (0 pts) Confusion or Disorientation No (0 pts) Intoxicated or Sedated No (0 pts) Impaired Gait No (0 pts) Mobility Assist Device Used No (0 pt) Altered Elimination No (0 pt) Score/Fall Risk Level 0 - 2 = Low Risk Oriented to surroundings, Maintained a safe environment, Educated pt \T\ family on fall prevention, incl call for assistance when getting out of bed, Assessed \T\ reinforced patient's understanding of fall precautions, Hourly rounding (assess needs \T\ fall precautionary measures) done, Used ambulatory aids as needed (educated on \T\ assisted with), Used gait belt as appropriate. Abuse screen: Denies threats or abuse. Nutritional screening: No deficits noted. Tuberculosis screening: No symptoms or risk factors identified. Assessment: 03:50 Reassessment: see triage assessment. bm8 05:10 Reassessment: pt back from CT reports mild nausea after moving around. General: Appears bm8 in no apparent distress. comfortable, Behavior is calm, cooperative, appropriate for age. Pain: Complains of pain in right upper quadrant Pain currently is 4 out of 10 on a pain scale. GI: Abdomen is flat, non-distended, Bowel sounds present X 4 quads. Reports upper abdominal pain, nausea, Pain is 4 out of 10 on a pain scale. : No deficits noted. No signs and/or symptoms were reported regarding the genitourinary system. EENT: No deficits noted. No signs and/or symptoms were reported regarding the EENT system. Derm: No deficits noted. No signs and/or symptoms reported regarding the dermatologic system. Musculoskeletal: No deficits noted. No signs and/or symptoms reported regarding the musculoskeletal system. 06:23 Reassessment: Patient appears in no apparent distress at this time. Patient and/or bm8 family updated on plan of care and expected duration. Pain level reassessed. Patient is alert, oriented x 3, equal unlabored respirations, skin warm/dry/pink. pt reported nausea, notified Md and new orders received and carried out. Patient states feeling better. Patient states symptoms have improved. 07:18 Reassessment: NOTIFIED DR. MCARTHUR PATIENT LACTATE IS 3.6. NEW ORDER RECEIVED FOR ANOTHER db NS BOLUS. 07:58 Reassessment: PATIENT GIVEN 4MG MORPHINE AND 4MG ZOFRAN PER HOSPITALIST BACK TENDER. db Vital Signs: 03:46 BP 159 / 98; Pulse 136; Resp 18; Temp 98.6; Pulse Ox 100% ; Weight 99.79 kg; Height 5 bm8 ft. 6 in. ; Pain 7/10; 05:10 BP 152 / 99; Pulse 100; Resp 18; Temp 98.6; Pulse Ox 100% ; Pain 4/10; bm8 06:23 BP 152 / 105; Pulse 92; Resp 18; Temp 98.6; Pulse Ox 100% ; Pain 4/10; bm8 06:44 BP 140 / 92; Pulse 93; Resp 18; Temp 98.6; Pulse Ox 99% ; Pain 3/10; bm8 07:30 BP 146 / 104; Pulse 99; Resp 16; Pulse Ox 99% on R/A; db 03:46 Body Mass Index 35.51 (99.79 kg, 167.64 cm) bm8 03:46 Pain Scale: Adult bm8 05:10 Pain Scale: Adult bm8 06:23 Pain Scale: Adult bm8 06:44 Pain Scale: Adult bm8 Romina Coma Score: 03:50 Eye Response: spontaneous(4). Motor Response: obeys commands(6). Verbal Response: bm8 oriented(5). Total: 15. 05:10 Eye Response: spontaneous(4). Motor Response: obeys commands(6). Verbal Response: bm8 oriented(5). Total: 15. ED Course: 03:21 Patient arrived in ED. [email or web address] 03:22 Skip Lucero MD is Attending Physician. rt 03:45 Bao Rodriguez, RN is Primary Nurse. bm8 03:47 Triage completed. bm8 03:47 Arm band placed on right wrist. bm8 03:50 Patient has correct armband on for positive identification. Bed in low position. Call bm8 light in reach. Side rails up X 1. Client placed on continuous cardiac and pulse oximetry monitoring. NIBP monitoring applied. Pulse ox on. NIBP on. Door closed. Noise minimized. Pillow given. Verbal reassurance given. 03:50 No provider procedures requiring assistance completed. Initial lab(s) drawn, by de, joe sent to lab. Urine collected: clean catch specimen, tea colored. Inserted saline lock: 20 gauge in left antecubital area, using aseptic technique. Blood collected. Flushed with 10 mL NS. Patient maintains SpO2 saturation greater than 95% on room air. 04:07 US Abdomen Limited In Process Unspecified. EDMS 05:11 CT Abd/Pelvis - IV Contrast Only In Process Unspecified. EDMS 06:42 Fox Mcarthur MD is Hospitalizing Provider. rt 10:35 Patient admitted, IV remains in place. bp Administered Medications: 04:02 Drug: Ondansetron IVP 4 mg IVP once; over 2 minutes Route: IVP; Site: left antecubital; bm8 06:36 Follow up: Response: No adverse reaction bm8 04:02 Drug: morphine IVP or IV 4 mg IVP once over 4 mins Route: IVP; Infused Over: 4 mins; bm8 Site: left antecubital; 06:36 Follow up: Response: No adverse reaction bm8 04:02 Drug: NS 0.9% IV 1000 ml IV at 1 bolus Per protocol; to be given as a bolus over 60 bm8 minutes Route: IV; Rate: 1 bolus; Site: left antecubital; 06:35 Follow up: Response: No adverse reaction; IV Status: Completed infusion; IV Intake: bm8 1000ml 05:07 Drug: Ketorolac IVP 15 mg IVP once Route: IVP; Site: left antecubital; bm8 06:35 Follow up: Response: No adverse reaction bm8 06:22 Drug: Ondansetron IVP 4 mg IVP once; over 2 minutes Route: IVP; Site: left antecubital; bm8 06:35 Follow up: Response: No adverse reaction bm8 06:36 Drug: Piperacillin-Tazobactam IVPB 3.375 grams IVPB once over 60 mins; (mix in NS 100 bm8 mL) Route: IVPB; Infused Over: 60 mins; Site: left antecubital; 10:49 Follow up: IV Status: Completed infusion bp 07:25 Drug: NS 0.9% IV 1000 ml IV at 1 bolus Per protocol; to be given as a bolus over 60 db minutes Route: IV; Rate: 1 bolus; Site: left antecubital; 10:49 Follow up: IV Status: Completed infusion bp 07:58 Drug: morphine IVP or IV 4 mg IVP once over 4 mins Route: IVP; Infused Over: 4 mins; db Site: left antecubital; 10:49 Follow up: Response: No adverse reaction bp 07:58 Drug: Ondansetron IVP 4 mg IVP once; over 2 minutes Route: IVP; Site: left antecubital; db 10:49 Follow up: Response: No adverse reaction bp Medication: 03:50 VIS not applicable for this client. bm8 Intake: 06:35 IV: 1000ml; Total: 1000ml. bm8 Outcome: 06:42 Decision to Hospitalize by Provider. rt 10:35 Admitted to ER Hold. Please see [facility] for further documentation. bp 10:35 Condition: stable 10:35 Instructed on the need for admit, 10:50 Patient left the ED. bp Signatures: Dispatcher [employer] EDMS Shivam Snow, RN RN bp Lilian Knox6 Janeen Oliva RN RN db Skip Lucero MD MD rt Bao Rodriguez RN RN bm8
--- NOTE | 2024-06-20 06:43 | EDPHYS ---
Physician Documentation [facility] Name: Cecelia Polk Age: 33 yrs Sex: Female : 1990 Arrival Date: 06/20/2024 Time: 03:18 Bed 8 Private MD: ED Physician Skip Lucero HPI: 06/20 04:01 This 33 yrs old [place] Female presents to ER via Ambulatory with complaints of rt Nausea/Vomiting, Abdominal Pain. 04:01 Patient presents to the ED with nausea, vomiting, epigastric pain starting about 8. rt This occurred after eating bread pudding. The patient has had previous history of a gallstone, states that this feels different than that. States that she has not been able to keep anything down by mouth. Denies other acute complaints at this time, symptoms are moderate in severity, no other aggravating or alleviating factors.. X RAY CONSULTANT: 03:47 LMP 06/19/2024, unknown bm8 Historical: - Allergies: 03:47 No Known Allergies; bm8 - Home Meds: 03:47 None [Active]; bm8 - PMHx: 03:47 None; bm8 - PSHx: 03:47 section; X3; bm8 - Immunization history:: Adult Immunizations up to date. - Infectious Disease History:: Denies. - Social history:: Smoking status: Patient denies any tobacco usage or history of. Patient uses alcohol, Patient/guardian denies using street drugs. - Family history:: not pertinent. ROS: 04:01 Constitutional: Negative for fever, chills, and weight loss, Cardiovascular: Negative rt for chest pain, palpitations, and edema, Respiratory: Negative for shortness of breath, cough, wheezing, and pleuritic chest pain, MS/Extremity: Negative for injury and deformity, Skin: Negative for injury, rash, and discoloration, Neuro: Negative for headache, weakness, numbness, tingling, and seizure, 04:01 Abdomen/GI: Positive for abdominal pain, nausea and vomiting, Exam: 04:01 Constitutional: This is a well developed, well nourished patient who is awake, alert, rt and in no acute distress. Head/Face: Normocephalic, atraumatic. Chest/axilla: Normal chest wall appearance and motion. Nontender with no deformity. No lesions are appreciated. Cardiovascular: Regular rate and rhythm with a normal S1 and S2. No gallops, murmurs, or rubs. Normal PMI, no JVD. No pulse deficits. Respiratory: Lungs have equal breath sounds bilaterally, clear to auscultation and percussion. No rales, rhonchi or wheezes noted. No increased work of breathing, no retractions or nasal flaring. Skin: Warm, dry with normal turgor. Normal color with no rashes, no lesions, and no evidence of cellulitis. MS/ Extremity: Pulses equal, no cyanosis. Neurovascular intact. Full, normal range of motion. Neuro: Awake and alert, GCS 15, oriented to person, place, time, and situation. Cranial nerves II-XII grossly intact. Motor strength 5/5 in all extremities. Sensory grossly intact. Cerebellar exam normal. Normal gait. 04:01 Abdomen/GI: Tenderness to the epigastrium/right upper quadrant with no guarding, rebound, distention, 06:32 ECG was reviewed by the Attending Physician. rt Vital Signs: 03:46 BP 159 / 98; Pulse 136; Resp 18; Temp 98.6; Pulse Ox 100% ; Weight 99.79 kg; Height 5 bm8 ft. 6 in. ; Pain 7/10; 05:10 BP 152 / 99; Pulse 100; Resp 18; Temp 98.6; Pulse Ox 100% ; Pain 4/10; bm8 06:23 BP 152 / 105; Pulse 92; Resp 18; Temp 98.6; Pulse Ox 100% ; Pain 4/10; bm8 06:44 BP 140 / 92; Pulse 93; Resp 18; Temp 98.6; Pulse Ox 99% ; Pain 3/10; bm8 07:30 BP 146 / 104; Pulse 99; Resp 16; Pulse Ox 99% on R/A; db 03:46 Body Mass Index 35.51 (99.79 kg, 167.64 cm) bm8 03:46 Pain Scale: Adult bm8 05:10 Pain Scale: Adult bm8 06:23 Pain Scale: Adult bm8 06:44 Pain Scale: Adult bm8 Romina Coma Score: 03:50 Eye Response: spontaneous(4). Motor Response: obeys commands(6). Verbal Response: bm8 oriented(5). Total: 15. 05:10 Eye Response: spontaneous(4). Motor Response: obeys commands(6). Verbal Response: bm8 oriented(5). Total: 15. MDM: 03:37 Medical Screening Exam initiated rt 06:43 Differential diagnosis: Cholecystitis, gastritis, abdominal pain. rt 06:43 Data reviewed: vital signs, nurses notes, lab test result(s), EKG, radiologic studies. rt Consideration of Admission/Observation Patient was admitted/placed on observation. Management of patient was discussed with the following: Hospitalist: Agrees to admit. I considered the following discharge prescriptions or medication management in the emergency department Medications were administered in the Emergency Department. See MAR. Independent interpretation of the following test(s) in the Emergency Department CT Scan: My interpretation is Gallstones seen on interpretation of CT scan images. Counseling: I had a detailed discussion with the patient and/or guardian regarding the historical points, exam findings, and any diagnostic results supporting the discharge/admit diagnosis, lab results, radiology results, the need for further work-up and treatment in the hospital. Response to treatment: the patient's symptoms have mildly improved after treatment. 06:43 Management of patient was discussed with the following: Matchbook Assembler: Discussed with Dr. rt Dior, [facility].. 06:46 ED course: Patient did not meet SIRS criteria until leukocytosis was returned, that rt time, fluids, IV antibiotics, cultures were ordered. 06/20 03:50 Order name: CBC with Diff; Complete Time: 05:17 rt 06/20 03:50 Order name: CMP; Complete Time: 04:42 rt 06/20 03:50 Order name: Lipase; Complete Time: 04:42 rt 06/20 03:50 Order name: Test, Urine; Complete Time: 05:07 rt 06/20 03:50 Order name: Urinalysis w/ reflexes; Complete Time: 05:07 rt 06/20 04:49 Order name: Manual Differential; Complete Time: 05:17 EDMS 06/20 06:08 Order name: Blood Culture Adult (2) rt 06/20 06:08 Order name: Lactate w/ 2H reflex if indic. rt 06/20 06:08 Order name: Protime (+inr) rt 06/20 06:08 Order name: Ptt, Activated rt 06/20 07:36 Order name: Urinalysis w/ reflexes EDMS 06/20 07:36 Order name: Basic Metabolic Panel EDMS 06/20 07:36 Order name: Basic Metabolic Panel EDMS 06/20 07:36 Order name: Basic Metabolic Panel EDMS 06/20 07:36 Order name: CBC with Automated Diff EDMS 06/20 07:36 Order name: CBC with Automated Diff EDMS 06/20 07:36 Order name: CBC with Automated Diff EDMS 06/20 07:36 Order name: Magnesium EDMS 06/20 07:36 Order name: Magnesium EDMS 06/20 07:36 Order name: Magnesium EDMS 06/20 09:14 Order name: Ghost Lactate-NO COLLECT Timer EDMS 06/20 10:21 Order name: Lactate Sepsis 2 HR Follow-up EDMS 06/20 03:50 Order name: CT Abd/Pelvis - IV Contrast Only rt 06/20 03:50 Order name: US Abdomen Limited rt 06/20 06:13 Order name: Cholangiogram EDMS 06/20 07:34 Order name: CONS Physician Consult EDMS 06/20 03:50 Order name: IV Saline Lock; Complete Time: 03:52 rt 06/20 03:50 Order name: Labs collected and sent; Complete Time: 03:52 rt 06/20 06:08 Order name: Cardiac monitoring; Complete Time: 06:22 rt 06/20 06:08 Order name: EKG - Nurse/Tech; Complete Time: 06:35 rt 06/20 06:08 Order name: IV Saline Lock - Large Bore; Complete Time: 06:22 rt 06/20 06:08 Order name: O2 Per Protocol; Complete Time: 06:22 rt 06/20 06:08 Order name: O2 Sat Monitoring; Complete Time: 06:22 rt 06/20 06:08 Order name: Vital Signs; Complete Time: 06:22 rt 06/20 06:45 Order name: NPO; Complete Time: 06:46 rt 06/20 09:39 Order name: Labs - recollect needed: recollect lactate, label tube; Complete Time: 09:54bd EC:32 Rate is 87 beats/min. Rhythm is regular, Normal Sinus Rhythm with No ectopy. QRS [place] rt is Normal. [place] interval is normal. QRS interval is normal. QT interval is prolonged at 522 msec. No Q waves. No ST changes noted. Interpreted by me. Administered Medications: 04:02 Drug: Ondansetron IVP 4 mg IVP once; over 2 minutes Route: IVP; Site: left antecubital; bm8 06:36 Follow up: Response: No adverse reaction bm8 04:02 Drug: morphine IVP or IV 4 mg IVP once over 4 mins Route: IVP; Infused Over: 4 mins; bm8 Site: left antecubital; 06:36 Follow up: Response: No adverse reaction bm8 04:02 Drug: NS 0.9% IV 1000 ml IV at 1 bolus Per protocol; to be given as a bolus over 60 bm8 minutes Route: IV; Rate: 1 bolus; Site: left antecubital; 06:35 Follow up: Response: No adverse reaction; IV Status: Completed infusion; IV Intake: bm8 1000ml 05:07 Drug: Ketorolac IVP 15 mg IVP once Route: IVP; Site: left antecubital; bm8 06:35 Follow up: Response: No adverse reaction bm8 06:22 Drug: Ondansetron IVP 4 mg IVP once; over 2 minutes Route: IVP; Site: left antecubital; bm8 06:35 Follow up: Response: No adverse reaction bm8 06:36 Drug: Piperacillin-Tazobactam IVPB 3.375 grams IVPB once over 60 mins; (mix in NS 100 bm8 mL) Route: IVPB; Infused Over: 60 mins; Site: left antecubital; 10:49 Follow up: IV Status: Completed infusion bp 07:25 Drug: NS 0.9% IV 1000 ml IV at 1 bolus Per protocol; to be given as a bolus over 60 db minutes Route: IV; Rate: 1 bolus; Site: left antecubital; 10:49 Follow up: IV Status: Completed infusion bp 07:58 Drug: morphine IVP or IV 4 mg IVP once over 4 mins Route: IVP; Infused Over: 4 mins; db Site: left antecubital; 10:49 Follow up: Response: No adverse reaction bp 07:58 Drug: Ondansetron IVP 4 mg IVP once; over 2 minutes Route: IVP; Site: left antecubital; db 10:49 Follow up: Response: No adverse reaction bp Disposition Summary: 06/20/24 06:42 Hospitalization Ordered Notes: Hospitalization Status: Inpatient Admission rt Provider: Fox Mcarthur rt Condition: Stable rt Problem: new rt Symptoms: have improved rt Bed/Room Type: Standard rt Location: [facility] ER HOLD(06/20/24 08:27) bp Room Assignment: ERHOLD-(06/20/24 08:27) bp Diagnosis - Acute cholecystitis rt - Sepsis rt Forms: - Medication Reconciliation Form rt - SBAR form rt - Leadership Thank You Letter rt Critical care time excluding procedures: 06:43 Critical care time: Bedside Care: 30 minutes, Consultation: 5 minutes. Total time: 35 rt minutes Signatures: Dispatcher [employer] EDMS Dorota Bonds Brian RN RN bp Jnaeen Oliva RN RN db Skip Lucero MD MD rt Bao Rodriguez RN RN bm8 Corrections: (The following items were deleted from the chart) 03:51 03:51 CBC+H.LAB.BRZ ordered. EDMS EDMS 03:51 03:51 COMPREHENSIVE METABOLIC PANEL+C.LAB.BRZ ordered. EDMS EDMS 03:51 03:51 LIPASE+C.LAB.BRZ ordered. EDMS EDMS 03:51 03:51 Test, Urine+UC.LAB.BRZ ordered. EDMS EDMS 03:51 03:51 Urinalysis+U.LAB.BRZ ordered. EDMS EDMS 06:09 06:09 BLOOD CULTURE*+BA.LAB.BRZ ordered. EDMS EDMS 06:09 06:09 LACTATE+C.LAB.BRZ ordered. EDMS EDMS 06:09 06:09 PROTIME (+INR)+COAG.LAB.BRZ ordered. EDMS EDMS 06:09 06:09 PTT, ACTIVATED+COAG.LAB.BRZ ordered. EDMS EDMS 06:35 06:08 Accucheck ordered. rt bm8 08:27 06:42 Telemetry/MedSurg (Inpatient) rt bp 08:27 06:42 rt bp
[2024-06-20 07:00] LABS: PT Prothrombin Time 16.1 SECONDS (9.4-12.5); PTT, Activated Partial Thromb 31.9 SECONDS (24.3-36.9); Protime INR 1.45
[2024-06-20] MEDS: MORPHINE 4 MG/ML SYR IV PRN (07:30)
[2024-06-20] MEDS: ONDANSETRON 4 MG/2 ML VIAL IV PRN (07:30)
--- NOTE | 2024-06-20 07:31 | P.HP ---
Certification for Inpatient Patient admitted to: Observation Practitioner: I am a practitioner with admitting privileges, knowledge of patient current condition, hospital course, and medical plan of care. Services: Services provided to patient in accordance with Admission requirements found in Title 42 Section 412.3 of the Code of Federal Regulations Patient History Date of Service: 06/20/24 Reason for admission: Acute cholecystitis History of Present Illness: 33-year-old female with no significant past medical history presents to the emergency department with abdominal pain. She reports epigastric and right upper quadrant abdominal pain, reports associated nausea vomiting, reports symptoms started last night after eating pudding. She reports unable to tolerate p.o. intake. Abdominal pain 7 out of 10. She reports last menstrual period 06/19/2024. no reported shortness of breath, chest pain, fever, diarrhea, CT scan reveals IMPRESSION: 1. Hepatomegaly with diffuse hepatic steatosis.2. 2.1 cm gallstone in the gallbladder neck, 3 cm the left ovarian cyst, MRCP The common bile duct measures 7 mm which is mildly dilated but the duct does taper normally towards the ampulla. No evidence of choledocholithiasis or stricture.Hepatomegaly with steatosis, plan to admit for acute cholecystitis, sepsis without shock, , surgery was consulted for acute cholecystitis, Laboratory evaluation lactic 3.6, hyponatremia 132, hypokalemia 3.4, transaminitis, AST 109, total bili, 1.4, alk phos 247, lipase normal at 57, leukocytosis at 14.60, left shift neutrophils 88.5, Allergies No Known Drug Allergies Allergy (Verified 06/20/24 07:17) Rash - Past Medical/Surgical History Has patient received pneumonia vaccine in the past: No -: - Social History Smoking Status: Never smoker Smoking therapy provided: No Alcohol use: Yes Caffeine use: Yes Place of Residence: Home Review of Systems 10-point ROS is otherwise unremarkable General: As per HPI Physical Examination - Physical Exam General: Alert, Oriented x3, Mild distress HEENT: Atraumatic, Normocephalic Neck: Supple, Without JVD or thyroid abnormality Respiratory: Clear to auscultation bilaterally, Normal air movement Cardiovascular: No edema, Normal pulses, Normal S1 S2, Other (Sinus tachycardia) Capillary refill: <2 Seconds Gastrointestinal: Normal bowel sounds, Other (Right upper quadrant tenderness, epigastric tenderness) Musculoskeletal: No clubbing, No swelling Integumentary: No breakdown, No significant lesion Neurological: Normal speech, Normal strength at 5/5 x4 extr, Cranial nerves 3-12 intact - Studies Laboratory Data (last 24 hrs) 06/20/24 06/20/24 06/20/24 06:35 04:00 04:00 WBC 14.60 H Hgb 13.8 Hct 40.5 Plt Count 195 PT 16.1 H INR 1.45 APTT 31.9 Sodium 132 L Potassium 3.4 L BUN 3 L Creatinine 0.89 Glucose 139 H Total Bilirubin 1.4 H AST 109 H ALT 50 Alkaline Phosphatase 247 H Lipase 57 Assessment and Plan - Problems (Diagnosis) (1) Acute cholecystitis Current Visit: Yes Status: Acute (2) Sepsis Current Visit: Yes Status: Acute Qualifiers: Sepsis acute organ dysfunction status: without acute organ dysfunction (3) Transaminitis Current Visit: Yes Status: Acute (4) Fatty liver Current Visit: Yes Status: Chronic (5) Nausea & vomiting Current Visit: Yes Status: Acute Qualifiers: Vomiting type: bilious vomiting Qualified Code(s): R11.14 - Bilious vomiting (6) Lactic acidosis Current Visit: Yes Status: Acute (7) Hepatomegaly Current Visit: Yes Status: Acute (8) Alcohol use Current Visit: Yes Status: Acute - Plan Admit to [facility] Surgery consult, n.p.o., MRCP ordered Plan for laparoscopic cholecystectomy today with Dr. Dior As needed analgesics, IV fluids, IV antibiotics, as needed antiemetics, Trend WBCs, liver enzymes, lactic, Patient will need to follow-up with GI after discharge for fatty liver, evaluation of elevated liver enzyme, Educate on alcohol moderation/cessation, Advance diet, per surgical team, Postop, no heavy lifting greater than 10 pounds, will need to follow-up with surgery after discharge Alcohol use, educated on alcohol cessation Liver ultrasound ordered, hepatitis panel ordered, GGT order Discharge Plan: Home - Advance Directives Does patient have a Living Will: No Does patient have a Durable POA for Healthcare: No - Code Status/Comfort Care Code Status: Full Code Critical Care: No Time Spent Managing Pts Care (In Minutes): 55
[2024-06-20] MEDS ORDERED: ALPRAZOLAM 0.25 MG TABLET PO PRN (07:32)
[2024-06-20] MEDS: PIPER TAZO 3.375 GM in NA CHLORIDE 0.9% 100 ML IV SCH ×2 (07:34→16:41)
[2024-06-20] MEDS: NA CHLORIDE 0.9% 1,000 ML IV SCH (08:00)
--- NOTE | 2024-06-20 08:49 | EKG ---
Test Date: 2024-06-20 Test Time: 06:31:17 Bottle Filler: KELLEY MEASUREMENT RESULTS: Intervals: Rate: 87 HI: 146 QRSD: 72 QT: 434 QTc: 522 Dime Box: P: 52 HI: 146 QRS: 78 T: 33 INTERPRETIVE STATEMENTS: Normal sinus rhythm Prolonged QT Abnormal ECG Compared to ECG 02/04/2024 16:41:09 Prolonged QT interval now present Electronically Signed On 06-20-24 08:49:16 SECURITY ASSISTANT by Terry Sanon
[2024-06-20 10:34] VITALS: BMI 35.5
--- NOTE | 2024-06-20 10:39 | RAD REPORT ---
EXAMINATION: MR CHOLANGIOGRAM CLINICAL INDICATION: Female, 33 years old. Abdominal pain TECHNIQUE: Multiplanar, multisequence MR imaging of the abdomen without intravenous contrast, and wit h specific attention to the biliary system. Unless otherwise specified, incidental findings do not require dedicated imaging follow-up. 3D MIP reconstruction performed. COMPARISON: CT and ultrasound same day FINDINGS: GALLBLADDER: Large gallstone in the region of the gallbladder neck measuring approximately 2 cm. No g allbladder wall thickening or pericholecystic edema is identified. The gallbladder is distended. BILE DUCTS: The common bile duct measures up to 7 mm but no evidence of choledocholithiasis or strict ure. The duct tapers normally towards the ampulla. LIVER: Hepatomegaly with steatosis. PANCREAS: Normal signal. No mass, ductal dilation, or brandon-pancreatic fluid. LYMPH NODES: Reactive size upper abdominal lymph nodes may be due to underlying liver disease. ADDITIONAL FINDINGS: None. IMPRESSION: Cholelithiasis. The common bile duct measures 7 mm which is mildly dilated but the duct does taper no rmally towards the ampulla. No evidence of choledocholithiasis or stricture. Hepatomegaly with steatosis.
[2024-06-20] MEDS ORDERED: LIDOCAINE 2% MPF 5 ML VIAL ONE (10:44)
[2024-06-20] MEDS ORDERED: FENTANYL CITR 100 MCG/2 ML ONE (10:44)
[2024-06-20] MEDS ORDERED: ROCURONIUM 50 MG/5 ML VIAL IV ONE ×2 (10:44→12:20)
[2024-06-20] MEDS ORDERED: MIDAZOLAM HCL 2 MG/2 ML INJ ONE (10:44)
[2024-06-20] MEDS ORDERED: propofoL 200 MG/20 ML VIAL IV ONE (10:44)
[2024-06-20] MEDS ORDERED: dexAMETHasone 10 MG/ML VIAL ONE (10:44)
[2024-06-20] MEDS: NA CHLORIDE 0.9% 1,000 ML ONE (10:51)
[2024-06-20] MEDS: SUCCINYLCHOLINE 20 MG/ML (10 ML) IV ONE (10:59)
[2024-06-20] MEDS: Ringers Lactate 1,000 ML IV ONE ×2 (11:20→14:00)
[2024-06-20] MEDS: BUPIVACAINE 0.5% PF 10 ML VIAL ONE (11:44)
--- NOTE | 2024-06-20 13:05 | PREOPCON ---
Date of Consultation: 06/20/2024 Reason For Consultation: Abdominal pain. History Of Present Illness: Patient is a 33-year-old female who presents to the emergency room with acute onset of epigastric pain going to the right upper quadrant after eating bread pudding. Patient had nausea and vomiting. Denies any bloating, belching, or heartburn. Denies any diarrhea, constip ation, or blood in her stool. Denies any dysuria or hematuria. Denies any sore throat, runny nose, cough, headaches, or dizziness. No chest pain. No fever or chills. Review of Systems: Otherwise, unremarkable. Past Medical History: Negative. Past Surgical History: . Allergies: NO ALLERGIES. Social History: The patient does not smoke. Drinks alcohol occasionally. Family History: Noncontributory. Physical Examination: Vital Signs: Stable. She is currently afebrile. General: She is awake, alert, oriented x3. Head and Neck: There is no evidence of icterus. No neck masses. No JVD. Throat clear. Neck is santos pple. Chest: Clear. Heart: S1, S2. Abdomen: Soft, nondistended. Positive bowel sounds. Positive right upper quadrant tenderness. No rebound, rigidity, or guarding. Extremities: Adequately perfused. Nontender. Neuro: Nonfocal. Laboratory Data: Shows white count of 14.6 with a left shift with normal platelet count and H and H. INR is 1.45. Chemistry reviewed. Her total bilirubin is 1.4, AST is 109, alkaline phosphatase is 247, lipase is 57. Lactic acid is 3.6. CT of the abdomen and pelvis reviewed. Still she has a 2.2 cm gallstone in the gallbladder. No gallbladder wall thickening or pericholecystic fluid. Assessment: 33-year-old female with acute cholecystitis, cholelithiasis, with possible choledocholit hiasis as the patient's LFTs are elevated. Recommendations: We will get an MRCP. If positive, patient will need ERCP. If negative, we will pr oceed with a laparoscopic cholecystectomy, possible open. Patient understands risks, benefits, and a lternatives and agrees to procedure. COLTON/ABHI Voice ID: [id number] Report ID: [id number]
[2024-06-20] MEDS ORDERED: NEOSTIGMINE 1 MG/ML -10 ML VIAL ONE (13:19)
[2024-06-20] MEDS ORDERED: GLYCOPYRROLATE 0.2 MG/ML SYR ONE (13:19)
--- NOTE | 2024-06-20 13:32 | P.OP ---
Date of Service: 06/20/24 Preop diagnosis: Acute cholecystitis and cholelithiasis, elevated liver function test, skin tag at the umbilicus Postop diagnosis: Same, cirrhosis and extensive adhesions Procedure performed: Laparoscopic cholecystectomy, excision of skin tag at the umbilicus and lysis of adhesions Surgeon: Ignacio Dior MD Financial Administrator: Emperatriz JIANG Estimated blood loss: Minimal Specimen: Gallbladder Findings: As above Anesthesia: General Complications: None Drains: None Fluids and blood products: Nonapplicable Disposition: Recovery room Operative note: Patient brought to the OR and placed in supine position. General anesthesia began. Patient prepped and draped in usual sterile fashion. Patient had a small skin tag at the umbilicus where the incision was made. Marcaine 0.5% was infiltrated locally. The skin tag was excised and sent to pathology as specimen. A 1 cm incision was made at the umbilicus. Subcutaneous tissue divided and fascia identified and divided. Bleeding controlled with cautery. #1 Vicryl stay suture placed. Peritoneal cavity entered with sharp and blunt dissection. 12 mm trocar placed into the peritoneal cavity under direct vision. Pneumoperitoneum established. Three 5 mm trocars were placed under direct vision. 1 trocar was placed in the epigastric region just to the right of midline. 2 trocars were placed in the right subcostal region. Laparoscopy revealed acute cholecystitis and extensive adhesions. Laparoscopy also revealed cirrhosis of the liver. The adhesions were taken down with LigaSure. Approximately 15 minutes was used to lyse the adhesions. Fundus of the gallbladder was retracted superiorly. Infundibulum was identified retracted inferolaterally. Sharp and blunt dissection was utilized to identify the cystic duct and cystic artery. Clips were placed and both structures divided. The liver was very intrahepatic. A retrograde dissection was accomplished with LigaSure. Entire gallbladder was removed from the liver bed. Bleeding on the liver bed was controlled with LigaSure and cautery. Gallbladder was retrieved to the umbilicus via Endo Catch bag. As patient has cirrhosis, there was minimal oozing noted. Arixtra was used in the standard fashion to control the oozing. No evidence of bleeding or bile leakage was appreciated. Effluent was clear. All trocars were removed under direct vision. Stay sutures were tied to each other to reapproximate the fascial defect. Subcutaneous wound irrigated and bleeding controlled with cautery. 3-0 chromic used to approximate subcutaneous tissue and close skin. Sterile dressing applied. Patient awakened and taken to recovery room in good general condition. CC:
[2024-06-20] MEDS: HYDROMORPHONE HCL 1 MG/ML INJ ONE (14:08)
[2024-06-20] MEDS: ONDANSETRON 4 MG/2 ML VIAL ONE (14:17)
[2024-06-20] MEDS: HYDROMORPHONE HCL 1 MG/ML INJ IV PRN (16:55)
--- NOTE | 2024-06-20 18:37 | RAD REPORT ---
EXAMINATION: Ultrasound of the liver CLINICAL HISTORY: Hepatomegaly COMPARISON: 06/20/2024 FINDINGS: Liver: Visualized portions of the liver demonstrate diffuse parenchymal echogenicity suggesting steat osis. Gallbladder: Poorly visualized Bile ducts: No intrahepatic or extrahepatic biliary dilatation. Common bile duct measures 3 mm. Fluid: No ascites. Spleen: Mildly prominent 17 cm IMPRESSION: Diffuse fatty liver pattern is noted. Mild splenomegaly. Gallbladder is not well visualized.
--- NOTE | 2024-06-20 18:39 | P.PN ---
Date of Service: 06/13/24 Pt doing well postoperatively. No complaints and feeling well. Tolerating diet.
[2024-06-20] MEDS: PROMETHAZINE INJ 25 MG/ML AMP IV PRN (19:28)
[2024-06-21 07:13] LABS: Absolute Eosinophils 0.1 K/uL (0-0.5); Absolute Lymphocytes (CBC) 0.7 K/uL (0.7-4.9); Absolute Monocytes 0.3 K/uL (0.1-1.3); Absolute Neutrophil 7.9 K/uL (1.8-8.0); Basophils % 0.3 % (0-1.3); Eosinophils % 0.7 % (0-4.4); Hematocrit 35.5 % (36.0-45.0); Hemoglobin 11.9 g/dL (12.0-15.0); Lymphocytes % 8.2 % (15.3-44.8); MCH 33.4 pg (27.0-35.0); MCHC 33.5 g/dL (32.0-36.0); MCV 99.4 fL (80-100); MPV 7.3 fL (7.6-11.3); Monocytes % 3.7 % (3.3-12.3); Neutrophils % 87.1 % (41.7-73.7); Platelets 131 thou/uL (152-406); RBC Red Blood Cell Count 3.57 M/uL (3.86-4.86); Red Cell Distribution Width 13.8 % (12.1-15.2)
[2024-06-21 07:30] LABS: Anion Gap 8.2 mEq/L (5.0-15.0); Bicarbonate 29 mEq/L (21-32); Glomerular Filtration Rate 121 ml/min (=/>90); Glucose Level 111 mg/dL (74-106); Magnesium 1.4 mg/dL (1.6-2.4); Phosphorus 2.1 mg/dL (2.5-4.9); Potassium 3.2 mEq/L (3.5-5.1); Sodium Level 134 mEq/L (136-145)
[2024-06-21 07:31] LABS: BUN Blood Urea Nitrogen < 3 mg/dL (7-18)
[2024-06-21] MEDS: HYDROCODONE/APAP 7.5/325 MG TAB PO PRN (08:14)
[2024-06-21 08:22] LABS: Hepatitis B surface AG Interp. Nonreactive (Nonreactive); Hepatitis C Virus Ab Nonreactive (Nonreactive)
[2024-06-21 08:23] LABS: HBsAG Nonreactive Report Report
[2024-06-21 08:28] VITALS: O2SAT 98
--- NOTE | 2024-06-21 09:32 | PN ---
Date of Progress Note: 06/21/2024 The patient is awake and alert, complaining of some incisional pain, but tolerating diet. No nausea or vomiting. Vital signs are stable, afebrile. Laboratory data reviewed. The patient has low magne sium, phosphorus, and potassium, which is being replaced. The patient's finding in the OR were discu ssed in detail with the patient regarding the cessation of drinking alcohol as the patient has eviden ce of cirrhosis and the patient needs to follow up as an outpatient with a liver specialist. Dischar ge instructions given in detail. The patient will follow up with me next week. Discharge medication s per the hospitalist team. /MODL Voice ID: [id number] Report ID: [id number]
[2024-06-21] MEDS: POTASSIUM CL SA 10 MEQ TAB PO ONE (11:08)
[2024-06-21] MEDS: POTASS/SODIUM PHOSPHATE 1 PKT POWD.PACK PO SCH (11:09)
[2024-06-21] MEDS: Magnesium Sulfate 2gm IVPB 2 G/50 ML BAG IV ONE (11:09)
[2024-06-21 13:58] VITALS: BP 139/71; TEMP 97.9
[2024-06-22 14:29] LABS: Hepatitis B Core IgM Nonreactive (Nonreactive)
== END 2024-06-21 13:39 | disposition home or self-care (01) ==
LOC: ER 03:18 → ERHOLD 07:31 → 4TH 14:52
PROVIDERS: ADMIT Hospitalist; ATTEND Hospitalist
PROC: 0DNW4ZZ Release Peritoneum, Percutaneous Endoscopic Approach (ICD-10-PCS; 2024-06-20)
PROC: 0FT44ZZ Resection of Gallbladder, Percutaneous Endoscopic Approach (ICD-10-PCS; principal; 2024-06-20 11:00)
DX: K80.10 Calculus of gallbladder with chronic cholecystitis without obstruction (principal); A41.9 Sepsis, unspecified organism; R74.01 Elevation of levels of liver transaminase levels; K76.0 Fatty (change of) liver, not elsewhere classified; R11.2 Nausea with vomiting, unspecified; R11.14 Bilious vomiting; R16.0 Hepatomegaly, not elsewhere classified; F10.90 Alcohol use, unspecified, uncomplicated; K74.60 Unspecified cirrhosis of liver; L91.8 Other hypertrophic disorders of the skin; K66.0 Peritoneal adhesions (postprocedural) (postinfection); Z71.41 Alcohol abuse counseling and surveillance of alcoholic
CPT/HCPCS: 96365; 96361; 93005; 87040 ×2; 85025 ×2; 81001; 80048; 82977; 36415 ×2; 83735; 81025; 84100; 85610; 83605 ×2; 88304; 88305; 85730; 83690; 80053; 80074; 74177; 74181; 76705 ×2; 96375; 99285; 96366; 47562; 49329; Q9967; J2550; J3475; J2704; J2710; J2543 ×4; J2003; J2250; J3010; J1100; J1171 ×4; J2405 ×7; G0378 ×5; J7120 ×2; J7030 ×4

== ENCOUNTER 2024-06-28 21:39 | Inpatient (IN) | payer OTHER ==
--- OUTSIDE RECORDS SUMMARY | 2024-06-28 21:45 | XMS REPORT | Continuity of Care Document ---
Author Name Unknown Address [address] [facility] [address] [place] [address] [facility] thconnect Address [address] [facility] [address] [place] [address] Care Team Providers Care Mobile Home Park Manager Name Role Phone Blanca Doss MD Primary Care Physician + [phone] DOLORES ALCAZAR Attending Clinician Unavailable BLANCA DOSS Attending Clinician Unavailab BLANCA Patterson Attending Clinician Unavailab le Doctor Unassigned, [place] Attending Clinician U navailable 2, [facility] Attending Clinician Unavailable Dolores Alcazar MD Attending Clinician [phone] Nurse, [facility] Attending Clinician Un available Odette Rene MD Attending Clinician [phone] Sreekanth Jhaveri MD Attending Clinician [phone] Pob, [facility] Main Attending Clinician Unavailabl e Room, [facility] Attending Clinician Unavailable 1, [facility] Room Attending Clinician Unavailable Gi Vance MD Attending Clinician [phone] GI VANCE Attending Clinician Unavailable GI VANCE Attending Clinician Unavailable Ultrasound, Ang-Mfm Attending Clinician Unavaila ble Lab, Ang - Db Attending Clinician Unavailable Nurse, [facility] Attending Clinician Unavailable Heath Gallo DO Attending Clinician [phone] HEATH GALLO Attending Clinician Unavailable EUGENE RICCI Attending Clinician Unavailable KAYLEEN SCHAEFER Attending Clinician Unavailable Kindra Griggs MD Attending Clinician [phone] Eugene Ricci PA-C Attending Clinician [phone] KINDRA GRIGGS Attending Clinician Unavailable Only, [facility] Test Attending Clinician Unavailable Ultrasound, [facility] Mfm Attending Clinician Unavaila ble Lab, [facility] Fam Pob I Attending Clinician Unavailab le Anene ROUGE PRESSER, Estephania Attending Clinician [phone] Jatinder Yeh MD Attending Clinician [phone] DOLORES ALCAZAR Admitting Clinician Unavailable Dolores Alcazar MD Admitting Clinician [phone] Kindra Griggs MD Admitting Clinician [phone] KINDRA GRIGGS Admitting Clinician Unavailable Payers Payer Name Policy Type Policy Number Effective Date Expirati on Date Source [facility] [id number] 2022 00:00:00 [place] [facility] [id number] 2022 00:00:00 Problems Condition Name Condition Details Condition Category Status Onset Date Resolution Date Last Treatment Date Treating Clinician Comments Source Liveborn infant, of lackey , born in hospital by delivery Liveborn , of lackey , born in hospital by delivery Disease Active 2022-08 00:00: 00 [facility] Encounter for female sterilizat ion procedure Encounter for female sterilizat ion procedure Disease Active 2022-08 00:00: 00 [facility] Polyhydram nios, antepartum , single or unspecifie d fetus Polyhydram nios, antepartum , single or unspecifie d fetus Disease Active 2022-08 0- 00:00: 00 [facility] Excessive growth affecting , antepartum , single or unspecifie d fetus Excessive growth affecting , antepartum , single or unspecifie d fetus Disease Active 2022-08 0- 00:00: 00 [facility] High-risk in third trimester High-risk in third trimester Disease Active 2023-0 9-27 00:00: 00 [facility] 34 weeks gestation of 34 weeks gestation of Disease Active 0 9-27 00:00: 00 [facility] 36 weeks gestation of 36 weeks gestation of Disease Active 0 9-27 00:00: 00 [facility] 37 weeks gestation of 37 weeks gestation of Disease Active 0 9-27 00:00: 00 [facility] Insulin controlled gestationa l diabetes mellitus (GDM) in third trimester Insulin controlled gestationa l diabetes mellitus (GDM) in third trimester Disease Active 0 8-30 00:00: 00 [facility] Previous section complicati ng Previous section complicati ng Disease Active 0 3-21 00:00: 00 [facility] High-risk in first trimester High-risk in first trimester Disease Active 0 3-21 00:00: 00 [facility] 7 weeks gestation of 7 weeks gestation of Disease Active 0 3-21 00:00: 00 [facility] 39 weeks gestation of 39 weeks gestation of Disease Active 1 0-26 00:00: 00 [facility] Liveborn , of lackey , born in hospital by delivery Liveborn , of lackey , born in hospital by delivery Disease Active 1 0-26 00:00: 00 [facility] Morbid obesity with body mass index of 40.0-49.9 Morbid obesity with body mass index of 40.0-49.9 Disease Active 2019-0 8-28 00:00: 00 [facility] Obesity (BMI 30-39.9) Obesity (BMI 30-39.9) Disease Active 0 4-20 00:00: 00 [facility] Mild intermitte nt asthma without complicati on Mild intermitte nt asthma without complicati on Disease Active 0 4-20 00:00: 00 [facility] Supervisio n of other normal Supervisio n of other normal Disease Active 0 4-20 00:00: 00 [facility] Previous section Previous section Disease Active 11-26 00:00: 00 [facility] Allergies, Adverse Reactions, Alerts Allergy Name Allergy Type Status Severity Reaction(s) Onset Date Inactive Date Treating Clinician Comments Source NO KNOWN ALLERGIE S Drug Class Active [facility] Social History Social Habit Start Date Stop Date Quantity Comments Source ASSERTION 2022-09-19 00:00:00 [facility] Alcohol intake 2023-10-11 00:00:00 2023-10-11 00:00:00 Ex-drinker (finding) [facility] History of Social function 2023-10-11 00:00:00 2023-10-11 00:00:00 [facility] Exposure to SARS-CoV-2 (event) 2023-01-09 00:00:00 2023-01-19 11:04:00 Not sure [facility] Tobacco use and exposure 2022-10-27 00:00:00 2022-10-27 00:00:00 Smokeless tobacco non-user [facility] Sex Assigned At 1990 00:00:00 1990 00:00:00 [facility] Smoking Status Start Date Stop Date Source Never smoked tobacco [facility] Medications Ordered Medication Name Filled Medication Name Start Date Stop Date Current Medication? Ordering Clinician Indication Dosage Frequency Signature (SIG) Comments Components Source losartan 25 mg tablet 10-10 00:00: 00 Yes [id number] 25mg Take 1 tablet by mouth in the morning. [facility] ibuprofen (IBU) tablet 600 mg 2022-08 17:00: 00 Yes 600mg 600 mg, Oral, Q6H, First dose on Wed05/26/23 at 1200, Until Discontinu ed, Routine [facility] vit no.124/iron /folic ( VITAMIN ORAL) 2022-08 11:26: 39 05-26 00:00 :00 No Take by mouth. [facility] HYDROcodone -acetaminop hen (NORCO 5) 5-325 mg tablet 1 tablet 2022-08 02:00: 00 Yes 1{tbl} 1 tablet, Oral, Q6HPRN, Starting on Wed05/25/23 at 2100, Until Discontinu ed, Routine, Pain (scale 4-6), Alternate with Ibuprofen [facility] HYDROcodone -acetaminop hen (NORCO 5) 5-325 mg tablet 2 tablet 2022-08 02:00: 00 Yes 2{tbl} 2 tablet, Oral, Q6HPRN, Starting on Wed05/25/23 at 2100, Until Discontinu ed, Routine, Pain (scale 7-10), Alternate with Ibuprofen [facility] vitamin w/FA tablet 2022-08 00:00: 00 Yes [id number] 1{tbl} Take 1 tablet by mouth in the morning. [facility] ibuprofen 600 mg tablet 2022-08 00:00: 00 06-22 00:00 :00 No [id number] 600mg Take 1 tablet by mouth every 6 (six) hours. [facility] gabapentin 300 mg capsule 2022-08 00:00: 00 06-22 00:00 :00 No [id number] 300mg Take 1 capsule by mouth in the morning and 1 capsule at noon and 1 capsule in the evening. [facility] HYDROcodone -acetaminop hen 5-325 mg tablet 2022-08 00:00: 00 06-03 04:59 :00 No [id number] 1{tbl} Take 1 tablet by mouth every 6 (six) hours as needed for Pain (scale 4-6) (Alternate with Ibuprofen) for up to 7 days. Indication s: acute pain [facility] acetaminoph en ADULT (OFIRMEV) injection 1,000 mg 2022-08 20:00: 00 05-25 21:17 :00 No 1000mg 1,000 mg, IV Infusion, at 400 mL/hr Administer over 15 Minutes, ONCE, 1 dose, On Wed05/25/23 at 1500, Routine
Indicatio n: Perioperat chantal Patient [facility] gabapentin (NEURONTIN) capsule 300 mg 2022-08 19:00: 00 Yes 300mg 300 mg, Oral, TID, First dose on Wed05/25/23 at 1400, Until Discontinu ed, Routine [facility] ketorolac (TORADOL) injection 30 mg 2022-08 17:00: 00 05-26 11:07 :00 No 30mg 30 mg, Slow IV Push, Q6H, 4 doses, First dose on Wed05/25/23 at 1200, Last dose on Wed05/26/23 at 0600, Routine [facility] lactated ringers IV infusion 1,000 mL 2022-08 15:45: 00 05-25 16:56 :44 No 1000mL at 125 mL/hr, 1,000 mL, IV Infusion, ONCE, 1 dose, On Wed05/25/23 at 1045, Routine [facility] diphenhydrA MINE (BENADRYL) injection 25 mg 2022-08 14:50: 30 Yes 25mg 25 mg, Slow IV Push, Q6HPRN, Starting on Wed05/25/23 at 0950, Until Discontinu ed, Routine, Itching [facility] diphenhydrA MINE (BENADRYL) tablet 25 mg 2022-08 14:50: 30 Yes 25mg 25 mg, Oral, Q6HPRN, Starting on Wed05/25/23 at 0950, Until Discontinu ed, Routine, Sleep, Itching [facility] ondansetron (ZOFRAN (PF)) injection 4 mg 2022-08 14:50: 30 Yes 4mg 4 mg, Slow IV Push, Q8HPRN, Starting on Wed05/25/23 at 0950, Until Discontinu ed, Routine, Nausea and Vomiting (N/V) [facility] bisacodyL (DULCOLAX) suppository 10 mg 2022-08 14:50: 30 Yes 10mg 10 mg, Rectal, QDAILYPRN, Starting on Wed05/25/23 at 0950, Until Discontinu ed, Routine, Constipati on [facility] simethicone (GAS RELIEF (SIMETHICON E)) chewable tablet 160 mg 2022-08 14:50: 30 Yes 160mg 160 mg, Oral, PC+HSPRN, Starting on Wed05/25/23 at 0950, Until Discontinu ed, Routine, Gas [facility] docusate (COLACE) capsule 200 mg 2022-08 14:50: 30 Yes 200mg 200 mg, Oral, QDAILYPRN, Starting on Wed05/25/23 at 0950, Until Discontinu ed, Routine, Constipati on [facility] magnesium hydroxide (MILK OF MAGNESIA) 400 mg/5 mL suspension 30 mL 2022-08 14:50: 30 Yes 30mL 30 mL, Oral, QDAILYPRN, Starting on Wed05/25/23 at 0950, Until Discontinu ed, Routine, Constipati on [facility] lactated ringers IV infusion 1,000 mL 2022-08 14:50: 30 Yes 1000mL at 125 mL/hr, 1,000 mL, IV Infusion, PRN, 1 dose, Starting on Wed05/25/23 at 0950, Until Discontinu ed, Routine [facility] acetaminoph en ADULT (OFIRMEV) injection 2022-08 13:59: 00 05-25 14:50 :13 No IV Infusion, Administer over 15 Minutes, ONCE INTRA PROCEDURE, Starting on Wed05/25/23 at 0859, Until Wed05/25/23 at 0950, Routine, Intra-op [facility] oxytocin (PITOCIN) 30 units in NS 500 mL IV infusion 2022-08 13:51: 00 05-25 14:50 :13 No IV Infusion, CONTINUOUS PRN, Starting on Wed05/25/23 at 0851, Until Wed05/25/23 at 0950, Routine, Intra-op [facility] NaCl 0.9% (NS) IV infusion 2022-08 13:50: 00 05-25 14:50 :13 No IV Infusion, CONTINUOUS PRN, Starting on Wed05/25/23 at 0850, Until Wed05/25/23 at 0950, Routine, Intra-op [facility] sodium chloride 0.9 % irrigation solution 2022-08 13:35: 00 Yes PRN, Starting on Wed05/25/23 at 0835, Until Discontinu ed, Intra-op [facility] ondansetron (ZOFRAN (PF)) injection 2022-08 13:26: 00 05-25 14:50 :13 No Slow IV Push, ONCE INTRA PROCEDURE, Starting on Wed05/25/23 at 0826, Until Wed05/25/23 at 0950, Routine, Intra-op [facility] PHENYLephri ne 1000 mcg/10 mL in 0.9% NaCl syringe 2022-08 13:18: 00 05-25 14:50 :13 No Intravenou s, CONTINUOUS PRN, Starting on Wed05/25/23 at 0818, Until Wed05/25/23 at 0950, Routine, Intra-op [facility] ePHEDrine 25 mg/5 mL (5 mg/mL) syringe 2022-08 13:16: 00 05-25 14:50 :13 No Intravenou s, ONCE INTRA PROCEDURE, Starting on Wed05/25/23 at 0816, Until Wed05/25/23 at 0950, Routine, Intra-op [facility] morpHINE PF (DURAMORPH- PF) injection 2022-08 13:15: 00 05-25 14:50 :13 No Epidural, ONCE INTRA PROCEDURE, Starting on Wed05/25/23 at 0815, Until Wed05/25/23 at 0950, Routine, Intra-op [facility] bupivacaine -dextrose-w ater-pf (MARCAINE SPINAL (PF)) 0.75 % (7.5 mg/mL) injection 2022-08 13:15: 00 05-25 14:50 :13 No Intraspina l, ONCE INTRA PROCEDURE, Starting on Wed05/25/23 at 0815, Until Wed05/25/23 at 0950, Routine, Intra-op [facility] ceFAZolin (ANCEF) injection 2022-08 13:09: 00 05-25 14:50 :13 No IV Piggyback, ONCE INTRA PROCEDURE, Starting on Wed05/25/23 at 0809, Until Wed05/25/23 at 0950, DARIA, Intra-op [facility] lactated ringers IV infusion 2022-08 13:05: 00 05-25 14:50 :13 No IV Infusion, CONTINUOUS PRN, Starting on Wed05/25/23 at 0805, Until Wed05/25/23 at 0950, Routine, Intra-op [facility] acetaminoph en (TYLENOL) tablet 650 mg 2022-08 11:15: 00 05-25 12:30 :00 No 650mg 650 mg, Oral, ONCE, 1 dose, On Wed05/25/23 at 0615, Routine [facility] lactated ringers IV infusion 1,000 mL 2022-08 11:15: 00 05-25 14:59 :09 No 1000mL at 125 mL/hr, 1,000 mL, IV Infusion, CONTINUOUS , Starting on Wed05/25/23 at 0615, Until Wed05/25/23 at 0959, Routine [facility] lactated ringers IV infusion 500 mL 2022-08 11:15: 00 05-25 12:52 :00 No 500mL at 999 mL/hr, 500 mL, IV Infusion, ONCE, 1 dose, On Wed05/25/23 at 0615, Routine [facility] sodium citrate-cit rach acid (BICITRA) 500-334 mg/5 mL solution 30 mL 2022-08 11:02: 54 05-25 12:52 :00 No 30mL 30 mL, Oral, PRE-PROCED URE ONCE, 1 dose, Starting on Wed05/25/23 at 0602, Until Wed05/27/23 at 2359, Routine, Surgery/Pr ocedure [facility] vit no.124/iron /folic ( VITAMIN ORAL) 2022-08 05:57: 56 Yes Take by mouth. [facility] ACCU-CHEK SOFTCLIX LANCETS [facility] 9-10 00:00: 00 05-26 00:00 :00 No [facility] Insulin Syringes, Disposable, 1 mL Syrg 04-07 00:00: 00 05-26 00:00 :00 No Use as directed [facility] insulin NPH (NOVOLIN N NPH U-100 INSULIN) 100 unit/mL injection 04-07 00:00: 00 05-26 00:00 :00 No Inject 15 units subcutaneo usly every night at 10 pm. [facility] BD VEO INSULIN SYRINGE UF 1 mL 31 gauge x 15/64" Syrg 04-07 00:00: 00 05-26 00:00 :00 No 10mg Take 10 mg by mouth. [facility] Blood-Gluco se Meter (ACCU-CHEK GUIDE GLUCOSE METER) [facility] 16 00:00: 00 05-26 00:00 :00 No Check blood sugar 4 times a day [facility] lancets [address] [facility] 16 00:00: 00 05-26 00:00 :00 No Check blood sugar 4 times a day [facility] blood sugar diagnostic (ACCU-CHEK GUIDE TEST STRIPS) strip 03-24 00:00: 00 05-26 00:00 :00 No Check blood glucose 4 times a day [facility] Alcohol Swabs (ALCOHOL WIPES) [facility] 16 00:00: 00 05-26 00:00 :00 No Apply to area(s) 4 (four) times daily. [facility] ferrous sulfate (IRON, FERROUS SULFATE,) 325 mg (65 mg iron) tablet 03-10 00:00: 00 06-22 00:00 :00 No [id number] 325mg Take 1 tablet by mouth in the morning and 1 tablet in the evening. [facility] vit no.124/iron /folic ( VITAMIN ORAL) 11-25 11:20: 25 Yes Take by mouth. [facility] norethindro ne 0.35 mg tablet 2019-08 00:00: 00 10-29 00:00 :00 No [id number] 1{tbl} Take 1 tablet by mouth daily. [facility] ibuprofen (IBU) tablet 600 mg 2019-08 05:00: 00 Yes 600mg 600 mg, Oral, Q6H ABX, First dose on Wed06/05/20 at 0000, Until Discontinu ed, Routine [facility] PNV 102-iron-fo late 1-dss-dha 90 mg iron-1 mg -50 mg-200 mg Cap 2019-08 15:53: 17 06-04 00:00 :00 No Take by mouth. [facility] HYDROcodone -acetaminop hen (NORCO 5) 5-325 mg tablet 1 tablet 2019-08 15:49: 16 Yes 1{tbl} 1 tablet, Oral, Q6HPRN, Starting Wed06/04/20 at 1049, Until Discontinu ed, Routine, Pain (scale 7-10) [facility] acetaminoph en (TYLENOL) tablet 650 mg 2019-08 13:45: 00 Yes 650mg 650 mg, Oral, Q6H ABX, First dose on Wed06/04/20 at 0845, Until Discontinu ed, Routine [facility] ketorolac (TORADOL) injection 30 mg 2019-08 05:00: 00 06-04 22:40 :00 No 30mg 30 mg, Slow IV Push, Q6H ABX, 4 doses, First dose on Wed06/04/20 at 0000, Last dose on Wed06/04/20 at 1800, Routine
member of the legislative council approving Restricted medication : KINDRA GRIGGS [facility] gabapentin (NEURONTIN) capsule 300 mg 2019-08 03:00: 00 Yes 300mg 300 mg, Oral, Q8H, First dose (after last modificati on) on Wed06/03/20 at 2200, Until Discontinu ed, Routine [facility] acetaminoph en 325 mg tablet 2019-08 00:00: 10-29 00:00 :00 No [id number] 650mg Take 2 tablets by mouth every 6 (six) hours as needed for Pain (scale 1-3) or Pain (scale 4-6). [facility] vitamin w/FA tablet 2019-08 00:00: 10-29 00:00 :00 No [id number] 1{tbl} Take 1 tablet by mouth daily. [facility] ferrous sulfate 325 mg (65 mg iron) tablet 2019-08 00:00: 10-29 00:00 :00 No [id number] 325mg Take 1 tablet by mouth 2 (two) times daily. [facility] ibuprofen 600 mg tablet 2019-08 00:00: 10-29 00:00 :00 No [id number] 600mg Take 1 tablet by mouth every 6 (six) hours as needed for Pain (scale 1-3) or Pain (scale 4-6) (Pain). Take with food or milk. [facility] docusate calcium 240 mg capsule 2019-08 00:00: 00 07-02 00:00 :00 No [id number] 240mg Take 1 capsule by mouth once daily as needed for Constipati on. [facility] HYDROcodone -acetaminop hen 5-325 mg tablet 2019-08 00:00: 00 06-12 05:59 :00 No [id number] 1{tbl} Take 1 tablet by mouth every 6 (six) hours as needed for Pain (scale 7-10) for up to 7 days. Indication s: acute pain [facility] gabapentin 300 mg capsule 2019-08 00:00: 06-10 05:59 :00 No [id number] 300mg Take 1 capsule by mouth every 8 (eight) hours for 5 days. [facility] acetaminoph en ADULT (OFIRMEV) injection 1,000 mg 2019-08 19:45: 00 06-03 19:59 :00 No 1000mg 1,000 mg, IV Infusion, Administer over 15 Minutes, ONCE, 1 dose, Wed06/03/20 at 1445, Routine, PACU
In dication: Perioperat chantal Patient [facility] gabapentin (NEURONTIN) capsule 300 mg 2019-08 19:00: 00 06-03 22:40 :54 No 300mg 300 mg, Oral, TID, First dose on Wed06/03/20 at 1400, Until Discontinu ed, Routine [facility] simethicone (GAS RELIEF (SIMETHICON E)) chewable tablet 160 mg 2019-08 18:00: 00 Yes 160mg 160 mg, Oral, PC+HS, First dose on Wed06/03/20 at 1300, Until Discontinu ed, Routine [facility] lactated ringers IV infusion 1,000 mL 2019-08 16:30: 00 Yes 1000mL at 75 mL/hr, 1,000 mL, IV Infusion, CONTINUOUS , Starting Wed06/03/20 at 1130, Until Discontinu ed, Routine, PACU [facility] rho(D) immune globulin (RHOGAM) syringe 300 mcg 2019-08 16:25: 26 Yes 300ug 300 mcg, Intramuscu lar, ONCE, For 1 dose, Conditiona l, Routine [facility] ondansetron (ZOFRAN (PF)) injection 4 mg 2019-08 16:25: 13 Yes 4mg 4 mg, Slow IV Push, Q8HPRN, Starting Wed06/03/20 at 1125, Until Discontinu ed, Routine, Nausea and Vomiting (N/V) [facility] magnesium hydroxide (MILK OF MAGNESIA) 400 mg/5 mL suspension 30 mL 2019-08 16:25: 13 Yes 30mL 30 mL, Oral, QDAILYPRN, Starting Wed06/03/20 at 1125, Until Discontinu ed, Routine, Constipati on [facility] diphenhydrA MINE (BENADRYL) tablet 25 mg 2019-08 16:25: 12 Yes 25mg 25 mg, Oral, Q6HPRN, Starting Wed06/03/20 at 1125, Until Discontinu ed, Routine, Sleep, Itching [facility] bisacodyL (DULCOLAX) suppository 10 mg 2019-08 16:25: 12 Yes 10mg 10 mg, Rectal, QDAILYPRN, Starting Wed06/03/20 at 1125, Until Discontinu ed, Routine, Constipati on [facility] docusate calcium (SURFAK) capsule 240 mg 2019-08 16:25: 12 Yes 240mg 240 mg, Oral, QDAILYPRN, Starting Wed06/03/20 at 1125, Until Discontinu ed, Routine, Constipati on [facility] ondansetron (ZOFRAN (PF)) injection 4 mg 2019-08 16:24: 51 Yes 4mg 4 mg, Slow IV Push, PRN, 1 dose, Starting Wed06/03/20 at 1124, Until Discontinu ed, Routine, Nausea and Vomiting (N/V), PACU [facility] mupirocin (BACTROBAN OINT) 2 % skin ointment 2019-08 14:20: 00 Yes Intra-op [facility] lactated ringers IV infusion 500 mL 2019-08 13:30: 00 06-03 12:37 :00 No 500mL at 999 mL/hr, 500 mL, IV Infusion, ONCE, 1 dose, Wed06/03/20 at 0830, Routine [facility] sodium chloride 0.9 % irrigation solution 2019-08 13:28: 00 Yes PRN, Starting Wed06/03/20 at 0828, Until Discontinu ed, Intra-op [facility] sodium citrate-cit rach acid (BICITRA) 500-334 mg/5 mL solution 30 mL 2019-08 12:23: 52 06-03 12:36 :00 No 30mL 30 mL, Oral, PRE-PROCED URE ONCE, 1 dose, Starting Wed06/03/20 at 0723, Until Wed06/03/20 at 0736, Routine, Surgery [facility] PNV 102-iron-fo late 1-dss-dha 90 mg iron-1 mg -50 mg-200 mg Cap 2020-0 4-20 14:01: 37 Yes Take by mouth. [facility] albuterol 90 mcg/actuati on inhaler 2019-0 4-20 00:00: 00 06-04 00:00 :00 No [id number] 2{puff} Inhale 2 Puffs every 6 (six) hours as needed for Wheezing, Shortness of Breath, Bronchospa sm or Chest tightness. [facility] Immunizations Ordered Immunization Name Filled Immunization Name Date Status Comments Source TDAP 2023-03-24 00:00:00 Completed [facility] TDAP 2023-03-24 00:00:00 Completed [facility] TDAP 2023-03-24 00:00:00 Completed [facility] TDAP 2023-03-24 00:00:00 Completed [facility] TDAP 2023-03-24 00:00:00 Completed [facility] TDAP 2023-03-24 00:00:00 Completed [facility] TDAP 2023-03-24 00:00:00 Completed [facility] SARS-COV-2 COVID-19 PFIZER VACCINE 2020-12-07 00:00:00 Completed [facility] SARS-COV-2 COVID-19 PFIZER VACCINE 2020-12-07 00:00:00 Completed [facility] SARS-COV-2 COVID-19 PFIZER VACCINE 2020-12-07 00:00:00 Completed [facility] SARS-COV-2 COVID-19 PFIZER VACCINE 2020-12-07 00:00:00 Completed [facility] SARS-COV-2 COVID-19 PFIZER VACCINE 2020-12-07 00:00:00 Completed [facility] SARS-COV-2 COVID-19 PFIZER VACCINE 2020-12-07 00:00:00 Completed [facility] SARS-COV-2 COVID-19 PFIZER VACCINE 2020-12-07 00:00:00 Completed [facility] SARS-COV-2 COVID-19 PFIZER VACCINE 2020-12-07 00:00:00 Completed [facility] SARS-COV-2 COVID-19 PFIZER VACCINE 2020-12-07 00:00:00 Completed [facility] SARS-COV-2 COVID-19 PFIZER VACCINE 2020-12-07 00:00:00 Completed [facility] SARS-COV-2 COVID-19 PFIZER VACCINE 2020-12-07 00:00:00 Completed [facility] SARS-COV-2 COVID-19 PFIZER VACCINE 2020-12-07 00:00:00 Completed [facility] SARS-COV-2 COVID-19 PFIZER VACCINE 2020-12-07 00:00:00 Completed [facility] SARS-COV-2 COVID-19 PFIZER VACCINE 2020-12-07 00:00:00 Completed [facility] SARS-COV-2 COVID-19 PFIZER VACCINE 2020-12-07 00:00:00 Completed [facility] SARS-COV-2 COVID-19 PFIZER VACCINE 2020-12-07 00:00:00 Completed [facility] SARS-COV-2 COVID-19 PFIZER VACCINE 2020-12-07 00:00:00 Completed [facility] SARS-COV-2 COVID-19 PFIZER VACCINE 2020-12-07 00:00:00 Completed [facility] SARS-COV-2 COVID-19 PFIZER VACCINE 2020-12-07 00:00:00 Completed [facility] SARS-COV-2 COVID-19 PFIZER VACCINE 2020-12-07 00:00:00 Completed [facility] SARS-COV-2 COVID-19 PFIZER VACCINE 2020-12-07 00:00:00 Completed [facility] SARS-COV-2 COVID-19 PFIZER VACCINE 2020-12-07 00:00:00 Completed [facility] SARS-COV-2 COVID-19 PFIZER VACCINE 2020-12-07 00:00:00 Completed [facility] SARS-COV-2 COVID-19 PFIZER VACCINE 2020-11-16 00:00:00 Completed [facility] SARS-COV-2 COVID-19 PFIZER VACCINE 2020-11-16 00:00:00 Completed [facility] SARS-COV-2 COVID-19 PFIZER VACCINE 2020-11-16 00:00:00 Completed [facility] SARS-COV-2 COVID-19 PFIZER VACCINE 2020-11-16 00:00:00 Completed [facility] SARS-COV-2 COVID-19 PFIZER VACCINE 2020-11-16 00:00:00 Completed [facility] SARS-COV-2 COVID-19 PFIZER VACCINE 2020-11-16 00:00:00 Completed [facility] SARS-COV-2 COVID-19 PFIZER VACCINE 2020-11-16 00:00:00 Completed [facility] SARS-COV-2 COVID-19 PFIZER VACCINE 2020-11-16 00:00:00 Completed [facility] SARS-COV-2 COVID-19 PFIZER VACCINE 2020-11-16 00:00:00 Completed [facility] SARS-COV-2 COVID-19 PFIZER VACCINE 2020-11-16 00:00:00 Completed [facility] SARS-COV-2 COVID-19 PFIZER VACCINE 2020-11-16 00:00:00 Completed [facility] SARS-COV-2 COVID-19 PFIZER VACCINE 2020-11-16 00:00:00 Completed [facility] SARS-COV-2 COVID-19 PFIZER VACCINE 2020-11-16 00:00:00 Completed [facility] SARS-COV-2 COVID-19 PFIZER VACCINE 2020-11-16 00:00:00 Completed [facility] SARS-COV-2 COVID-19 PFIZER VACCINE 2020-11-16 00:00:00 Completed [facility] SARS-COV-2 COVID-19 PFIZER VACCINE 2020-11-16 00:00:00 Completed [facility] SARS-COV-2 COVID-19 PFIZER VACCINE 2020-11-16 00:00:00 Completed [facility] SARS-COV-2 COVID-19 PFIZER VACCINE 2020-11-16 00:00:00 Completed [facility] SARS-COV-2 COVID-19 PFIZER VACCINE 2020-11-16 00:00:00 Completed [facility] SARS-COV-2 COVID-19 PFIZER VACCINE 2020-11-16 00:00:00 Completed [facility] SARS-COV-2 COVID-19 PFIZER VACCINE 2020-11-16 00:00:00 Completed [facility] SARS-COV-2 COVID-19 PFIZER VACCINE 2020-11-16 00:00:00 Completed [facility] SARS-COV-2 COVID-19 PFIZER VACCINE 2020-11-16 00:00:00 Completed [facility] SARS-COV-2 COVID-19 PFIZER VACCINE 2020-11-16 00:00:00 Completed [facility] Influenza Virus Vaccine Quad .5 mL IM 6+ MO (FLUZONE/FLULAVAL/F LUARIX) 2020-05-22 00:00:00 Completed [facility] Influenza Virus Vaccine Quad .5 mL IM 6+ MO (FLUZONE/FLULAVAL/F LUARIX) 2020-05-22 00:00:00 Completed [facility] Influenza Virus Vaccine Quad .5 mL IM 6+ MO (FLUZONE/FLULAVAL/F LUARIX) 2020-05-22 00:00:00 Completed [facility] Influenza Virus Vaccine Quad .5 mL IM 6+ MO (FLUZONE/FLULAVAL/F LUARIX) 2020-05-22 00:00:00 Completed [facility] Influenza Virus Vaccine Quad .5 mL IM 6+ MO 2020-05-22 00:00:00 Completed [facility] Influenza Virus Vaccine Quad .5 mL IM 6+ MO 2020-05-22 00:00:00 Completed [facility] Influenza Virus Vaccine Quad .5 mL IM 6+ MO 2020-05-22 00:00:00 Completed [facility] Influenza Virus Vaccine Quad .5 mL IM 6+ MO 2020-05-22 00:00:00 Completed [facility] Influenza Virus Vaccine Quad .5 mL IM 6+ MO 2020-05-22 00:00:00 Completed [facility] Influenza Virus Vaccine Quad .5 mL IM 6+ MO 2020-05-22 00:00:00 Completed [facility] Influenza Virus Vaccine Quad .5 mL IM 6+ MO 2020-05-22 00:00:00 Completed [facility] Influenza Virus Vaccine Quad .5 mL IM 6+ MO 2020-05-22 00:00:00 Completed [facility] Influenza Virus Vaccine Quad .5 mL IM 6+ MO 2020-05-22 00:00:00 Completed [facility] Influenza Virus Vaccine Quad .5 mL IM 6+ MO 2020-05-22 00:00:00 Completed [facility] Influenza Virus Vaccine Quad .5 mL IM 6+ MO 2020-05-22 00:00:00 Completed [facility] Influenza Virus Vaccine Quad .5 mL IM 6+ MO 2020-05-22 00:00:00 Completed [facility] Influenza Virus Vaccine Quad .5 mL IM 6+ MO 2020-05-22 00:00:00 Completed [facility] Influenza Virus Vaccine Quad .5 mL IM 6+ MO 2020-05-22 00:00:00 Completed [facility] Influenza Virus Vaccine Quad .5 mL IM 6+ MO 2020-05-22 00:00:00 Completed [facility] Influenza Virus Vaccine Quad .5 mL IM 6+ MO 2020-05-22 00:00:00 Completed [facility] Influenza Virus Vaccine Quad .5 mL IM 6+ MO 2020-05-22 00:00:00 Completed [facility] Influenza Virus Vaccine Quad .5 mL IM 6+ MO 2020-05-22 00:00:00 Completed [facility] Influenza Virus Vaccine Quad .5 mL IM 6+ MO 2020-05-22 00:00:00 Completed [facility] Influenza Virus Vaccine Quad .5 mL IM 6+ MO 2020-05-22 00:00:00 Completed [facility] Influenza Virus Vaccine Quad .5 mL IM 6+ MO 2020-05-22 00:00:00 Completed [facility] Influenza Virus Vaccine Quad .5 mL IM 6+ MO 2020-05-22 00:00:00 Completed [facility] Influenza Virus Vaccine Quad .5 mL IM 6+ MO 2020-05-22 00:00:00 Completed [facility] Influenza Virus Vaccine Quad .5 mL IM 6+ MO 2020-05-22 00:00:00 Completed [facility] Influenza Virus Vaccine Quad .5 mL IM 6+ MO 2020-05-22 00:00:00 Completed [facility] Influenza Virus Vaccine Quad .5 mL IM 6+ MO 2020-05-22 00:00:00 Completed [facility] Influenza Virus Vaccine Quad .5 mL IM 6+ MO 2020-05-22 00:00:00 Completed [facility] Influenza Virus Vaccine Quad .5 mL IM 6+ MO 2020-05-22 00:00:00 Completed [facility] Influenza Virus Vaccine Quad .5 mL IM 6+ MO 2020-05-22 00:00:00 Completed [facility] Influenza Virus Vaccine Quad .5 mL IM 6+ MO 2020-05-22 00:00:00 Completed [facility] Influenza Virus Vaccine Quad .5 mL IM 6+ MO 2020-05-22 00:00:00 Completed [facility] Influenza Virus Vaccine Quad .5 mL IM 6+ MO 2020-05-22 00:00:00 Completed [facility] Influenza Virus Vaccine Quad .5 mL IM 6+ MO 2020-05-22 00:00:00 Completed [facility] TDAP 2020-03-15 00:00:00 Completed [facility] TDAP 2020-03-15 00:00:00 Completed [facility] TDAP 2020-03-15 00:00:00 Completed [facility] TDAP 2020-03-15 00:00:00 Completed [facility] TDAP 2020-03-15 00:00:00 Completed [facility] TDAP 2020-03-15 00:00:00 Completed [facility] TDAP 2020-03-15 00:00:00 Completed [facility] TDAP 2020-03-15 00:00:00 Completed [facility] TDAP 2020-03-15 00:00:00 Completed [facility] TDAP 2020-03-15 00:00:00 Completed [facility] TDAP 2020-03-15 00:00:00 Completed [facility] TDAP 2020-03-15 00:00:00 Completed [facility] TDAP 2020-03-15 00:00:00 Completed [facility] TDAP 2020-03-15 00:00:00 Completed [facility] TDAP 2020-03-15 00:00:00 Completed [facility] TDAP 2020-03-15 00:00:00 Completed [facility] TDAP 2020-03-15 00:00:00 Completed [facility] TDAP 2020-03-15 00:00:00 Completed [facility] TDAP 2020-03-15 00:00:00 Completed [facility] TDAP 2020-03-15 00:00:00 Completed [facility] TDAP 2020-03-15 00:00:00 Completed [facility] TDAP 2020-03-15 00:00:00 Completed [facility] TDAP 2020-03-15 00:00:00 Completed [facility] TDAP 2020-03-15 00:00:00 Completed [facility] TDAP 2020-03-15 00:00:00 Completed [facility] TDAP 2020-03-15 00:00:00 Completed [facility] TDAP 2020-03-15 00:00:00 Completed [facility] TDAP 2020-03-15 00:00:00 Completed [facility] TDAP 2020-03-15 00:00:00 Completed [facility] TDAP 2020-03-15 00:00:00 Completed [facility] TDAP 2020-03-15 00:00:00 Completed [facility] TDAP 2020-03-15 00:00:00 Completed [facility] TDAP 2020-03-15 00:00:00 Completed [facility] TDAP 2020-03-15 00:00:00 Completed [facility] TDAP 2020-03-15 00:00:00 Completed [facility] TDAP 2020-03-15 00:00:00 Completed [facility] TDAP 2020-03-15 00:00:00 Completed [facility] TDAP 2020-03-15 00:00:00 Completed [facility] TDAP 2020-03-15 00:00:00 Completed [facility] TDAP 2020-03-15 00:00:00 Completed [facility] TDAP 2020-03-15 00:00:00 Completed [facility] TDAP 2020-03-15 00:00:00 Completed [facility] TDAP 2020-03-15 00:00:00 Completed [facility] TDAP 2020-03-15 00:00:00 Completed [facility] TDAP 2020-03-15 00:00:00 Completed [facility] TDAP 2020-03-15 00:00:00 Completed [facility] TDAP 2020-03-15 00:00:00 Completed [facility] TDAP Unknown Completed [facility] Influenza Virus Vaccine Quad .5 mL IM 6+ MO (FLUZONE/FLULAVAL/F LUARIX) Unknown Completed [facility] SARS-COV-2 COVID-19 PFIZER VACCINE Unknown Completed [facility] TDAP Unknown Completed [facility] Influenza Virus Vaccine Quad .5 mL IM 6+ MO (FLUZONE/FLULAVAL/F LUARIX) Unknown Completed [facility] SARS-COV-2 COVID-19 PFIZER VACCINE Unknown Completed [facility] TDAP Unknown Completed [facility] Influenza Virus Vaccine Quad .5 mL IM 6+ MO (FLUZONE/FLULAVAL/F LUARIX) Unknown Completed [facility] SARS-COV-2 COVID-19 PFIZER VACCINE Unknown Completed [facility] Influenza Virus Vaccine Quad IM, Preserv and ABX Free 6 MO-64 YRS (FLUCELVAX) Unknown Completed [facility] TDAP Unknown Completed [facility] Influenza Virus Vaccine Quad .5 mL IM 6+ MO (FLUZONE/FLULAVAL/F LUARIX) Unknown Completed [facility] SARS-COV-2 COVID-19 PFIZER VACCINE Unknown Completed [facility] Influenza Virus Vaccine Quad IM, Preserv and ABX Free 6 MO-64 YRS (FLUCELVAX) Unknown Completed [facility] TDAP Unknown Completed [facility] Influenza Virus Vaccine Quad .5 mL IM 6+ MO (FLUZONE/FLULAVAL/F LUARIX) Unknown Completed [facility] SARS-COV-2 COVID-19 PFIZER VACCINE Unknown Completed [facility] Influenza Virus Vaccine Quad IM, Preserv and ABX Free 6 MO-64 YRS (FLUCELVAX) Unknown Completed [facility] TDAP Unknown Completed [facility] Influenza Virus Vaccine Quad .5 mL IM 6+ MO (FLUZONE/FLULAVAL/F LUARIX) Unknown Completed [facility] SARS-COV-2 COVID-19 PFIZER VACCINE Unknown Completed [facility] Influenza Virus Vaccine Quad IM, Preserv and ABX Free 6 MO-64 YRS (FLUCELVAX) Unknown Completed [facility] TDAP Unknown Completed [facility] Influenza Virus Vaccine Quad .5 mL IM 6+ MO (FLUZONE/FLULAVAL/F LUARIX) Unknown Completed [facility] SARS-COV-2 COVID-19 PFIZER VACCINE Unknown Completed [facility] Influenza Virus Vaccine Quad IM, Preserv and ABX Free 6 MO-64 YRS (FLUCELVAX) Unknown Completed [facility] TDAP Unknown Completed [facility] Influenza Virus Vaccine Quad .5 mL IM 6+ MO (FLUZONE/FLULAVAL/F LUARIX) Unknown Completed [facility] SARS-COV-2 COVID-19 PFIZER VACCINE Unknown Completed [facility] Influenza Virus Vaccine Quad IM, Preserv and ABX Free 6 MO-64 YRS (FLUCELVAX) Unknown Completed [facility] TDAP Unknown Completed [facility] Influenza Virus Vaccine Quad .5 mL IM 6+ MO (FLUZONE/FLULAVAL/F LUARIX) Unknown Completed [facility] SARS-COV-2 COVID-19 PFIZER VACCINE Unknown Completed [facility] Influenza Virus Vaccine Quad IM, Preserv and ABX Free 6 MO-64 YRS (FLUCELVAX) Unknown Completed [facility] TDAP Unknown Completed [facility] Influenza Virus Vaccine Quad .5 mL IM 6+ MO (FLUZONE/FLULAVAL/F LUARIX) Unknown Completed [facility] SARS-COV-2 COVID-19 PFIZER VACCINE Unknown Completed [facility] Influenza Virus Vaccine Quad IM, Preserv and ABX Free 6 MO-64 YRS (FLUCELVAX) Unknown Completed [facility] TDAP Unknown Completed [facility] Influenza Virus Vaccine Quad .5 mL IM 6+ MO (FLUZONE/FLULAVAL/F LUARIX) Unknown Completed [facility] SARS-COV-2 COVID-19 PFIZER VACCINE Unknown Completed [facility] Influenza Virus Vaccine Quad IM, Preserv and ABX Free 6 MO-64 YRS (FLUCELVAX) Unknown Completed [facility] TDAP Unknown Completed [facility] Influenza Virus Vaccine Quad .5 mL IM 6+ MO (FLUZONE/FLULAVAL/F LUARIX) Unknown Completed [facility] SARS-COV-2 COVID-19 PFIZER VACCINE Unknown Completed [facility] Influenza Virus Vaccine Quad IM, Preserv and ABX Free 6 MO-64 YRS (FLUCELVAX) Unknown Completed [facility] TDAP Unknown Completed [facility] Influenza Virus Vaccine Quad .5 mL IM 6+ MO (FLUZONE/FLULAVAL/F LUARIX) Unknown Completed [facility] SARS-COV-2 COVID-19 PFIZER VACCINE Unknown Completed [facility] Influenza Virus Vaccine Quad IM, Preserv and ABX Free 6 MO-64 YRS (FLUCELVAX) Unknown Completed [facility] TDAP Unknown Completed [facility] Influenza Virus Vaccine Quad .5 mL IM 6+ MO (FLUZONE/FLULAVAL/F LUARIX) Unknown Completed [facility] SARS-COV-2 COVID-19 PFIZER VACCINE Unknown Completed [facility] Influenza Virus Vaccine Quad IM, Preserv and ABX Free 6 MO-64 YRS (FLUCELVAX) Unknown Completed [facility] TDAP Unknown Completed [facility] Influenza Virus Vaccine Quad .5 mL IM 6+ MO (FLUZONE/FLULAVAL/F LUARIX) Unknown Completed [facility] SARS-COV-2 COVID-19 PFIZER VACCINE Unknown Completed [facility] Influenza Virus Vaccine Quad IM, Preserv and ABX Free 6 MO-64 YRS (FLUCELVAX) Unknown Completed [facility] TDAP Unknown Completed [facility] Influenza Virus Vaccine Quad .5 mL IM 6+ MO (FLUZONE/FLULAVAL/F LUARIX) Unknown Completed [facility] SARS-COV-2 COVID-19 PFIZER VACCINE Unknown Completed [facility] Influenza Virus Vaccine Quad IM, Preserv and ABX Free 6 MO-64 YRS (FLUCELVAX) Unknown Completed [facility] TDAP Unknown Completed [facility] Influenza Virus Vaccine Quad .5 mL IM 6+ MO (FLUZONE/FLULAVAL/F LUARIX) Unknown Completed [facility] SARS-COV-2 COVID-19 PFIZER VACCINE Unknown Completed [facility] Influenza Virus Vaccine Quad IM, Preserv and ABX Free 6 MO-64 YRS (FLUCELVAX) Unknown Completed [facility] TDAP Unknown Completed [facility] Influenza Virus Vaccine Quad .5 mL IM 6+ MO (FLUZONE/FLULAVAL/F LUARIX) Unknown Completed [facility] SARS-COV-2 COVID-19 PFIZER VACCINE Unknown Completed [facility] Influenza Virus Vaccine Quad IM, Preserv and ABX Free 6 MO-64 YRS (FLUCELVAX) Unknown Completed [facility] TDAP Unknown Completed [facility] Influenza Virus Vaccine Quad .5 mL IM 6+ MO (FLUZONE/FLULAVAL/F LUARIX) Unknown Completed [facility] SARS-COV-2 COVID-19 PFIZER VACCINE Unknown Completed [facility] Influenza Virus Vaccine Quad IM, Preserv and ABX Free 6 MO-64 YRS (FLUCELVAX) Unknown Completed [facility] TDAP Unknown Completed [facility] Influenza Virus Vaccine Quad .5 mL IM 6+ MO (FLUZONE/FLULAVAL/F LUARIX) Unknown Completed [facility] SARS-COV-2 COVID-19 PFIZER VACCINE Unknown Completed [facility] Influenza Virus Vaccine Quad IM, Preserv and ABX Free 6 MO-64 YRS (FLUCELVAX) Unknown Completed [facility] TDAP Unknown Completed [facility] Influenza Virus Vaccine Quad .5 mL IM 6+ MO (FLUZONE/FLULAVAL/F LUARIX) Unknown Completed [facility] SARS-COV-2 COVID-19 PFIZER VACCINE Unknown Completed [facility] Influenza Virus Vaccine Quad IM, Preserv and ABX Free 6 MO-64 YRS (FLUCELVAX) Unknown Completed [facility] TDAP Unknown Completed [facility] Influenza Virus Vaccine Quad .5 mL IM 6+ MO (FLUZONE/FLULAVAL/F LUARIX) Unknown Completed [facility] SARS-COV-2 COVID-19 PFIZER VACCINE Unknown Completed [facility] Influenza Virus Vaccine Quad IM, Preserv and ABX Free 6 MO-64 YRS (FLUCELVAX) Unknown Completed [facility] TDAP Unknown Completed [facility] Influenza Virus Vaccine Quad .5 mL IM 6+ MO (FLUZONE/FLULAVAL/F LUARIX) Unknown Completed [facility] SARS-COV-2 COVID-19 PFIZER VACCINE Unknown Completed [facility] Influenza Virus Vaccine Quad IM, Preserv and ABX Free 6 MO-64 YRS (FLUCELVAX) Unknown Completed [facility] TDAP Unknown Completed [facility] Influenza Virus Vaccine Quad .5 mL IM 6+ MO (FLUZONE/FLULAVAL/F LUARIX) Unknown Completed [facility] SARS-COV-2 COVID-19 PFIZER VACCINE Unknown Completed [facility] Influenza Virus Vaccine Quad IM, Preserv and ABX Free 6 MO-64 YRS (FLUCELVAX) Unknown Completed [facility] Vital Signs Vital Name Observation Time Observation Value Comments Lesa corona Systolic blood pressure 2023-10-11 16:51:00 150 mm[Hg] [facility] Diastolic blood pressure 2023-10-11 16:51:00 87 mm[Hg] [facility] Heart rate 2023-10-11 16:03:00 73 /min [facility] Body temperature 2023-10-11 16:03:00 36.39 Steffanie [facility] Body height 2023-10-11 16:03:00 167.6 cm [facility] Body weight 2023-10-11 16:03:00 111.585 kg [facility] BMI 2023-10-11 16:03:00 39.71 kg/m2 [facility] Oxygen saturation in Arterial blood by Pulse oximetry 2023-10-11 16:03:00 100 /min [facility] Systolic blood pressure 2023-07-16 15:53:00 146 mm[Hg] [facility] Diastolic blood pressure 2023-07-16 15:53:00 94 mm[Hg] [facility] Heart rate 2023-07-16 15:39:00 71 /min [facility] Body temperature 2023-07-16 15:39:00 36.5 Steffanie [facility] Respiratory rate 2023-07-16 15:39:00 18 /min [facility] Body height 2023-07-16 15:39:00 165.1 cm [facility] Body weight 2023-07-16 15:39:00 108.41 kg [facility] BMI 2023-07-16 15:39:00 39.77 kg/m2 [facility] Systolic blood pressure 2023-06-22 17:23:00 120 mm[Hg] [facility] Diastolic blood pressure 2023-06-22 17:23:00 69 mm[Hg] [facility] Heart rate 2023-06-22 17:22:00 67 /min [facility] Body temperature 2023-06-22 17:22:00 36.67 Steffanie [facility] Respiratory rate 2023-06-22 17:22:00 17 /min [facility] Body height 2023-06-22 17:22:00 165.1 cm [facility] Body weight 2023-06-22 17:22:00 107.775 kg [facility] BMI 2023-06-22 17:22:00 39.54 kg/m2 [facility] Systolic blood pressure 2023-06-01 15:19:00 130 mm[Hg] [facility] Diastolic blood pressure 2023-06-01 15:19:00 84 mm[Hg] [facility] Heart rate 2023-06-01 15:19:00 83 /min [facility] Body temperature 2023-06-01 15:19:00 36.78 Steffanie [facility] Respiratory rate 2023-06-01 15:19:00 18 /min [facility] Body height 2023-06-01 15:19:00 167.6 cm [facility] Body weight 2023-06-01 15:19:00 108.863 kg [facility] BMI 2023-06-01 15:19:00 38.74 kg/m2 [facility] Systolic blood pressure 2023-05-26 21:30:00 125 mm[Hg] [facility] Diastolic blood pressure 2023-05-26 21:30:00 75 mm[Hg] [facility] Heart rate 2023-05-26 21:30:00 73 /min [facility] Body temperature 2023-05-26 21:30:00 36.39 Steffanie [facility] Respiratory rate 2023-05-26 21:30:00 18 /min [facility] Oxygen saturation in Arterial blood by Pulse oximetry 2023-05-26 21:30:00 99 /min [facility] Body height 2023-05-25 11:15:00 167.6 cm [facility] Body weight 2023-05-25 11:15:00 116.484 kg [facility] BMI 2023-05-25 11:15:00 41.45 kg/m2 [facility] Heart rate 2023-05-25 15:00:00 67 [facility] Oxygen saturation in Arterial blood by Pulse oximetry 2023-05-25 15:00:00 100 /min [facility] Systolic blood pressure 2023-05-25 13:00:00 134 mm[Hg] [facility] Diastolic blood pressure 2023-05-25 13:00:00 82 mm[Hg] [facility] Body temperature 2023-05-25 11:15:00 36.78 Steffanie [facility] Respiratory rate 2023-05-25 11:15:00 16 /min [facility] Body height 2023-05-25 11:15:00 167.6 cm [facility] Body weight 2023-05-25 11:15:00 116.484 kg [facility] BMI 2023-05-25 11:15:00 41.45 kg/m2 [facility] Respiratory rate 2023-05-25 14:44:00 15 /min [facility] Systolic blood pressure 2023-05-21 15:16:00 122 mm[Hg] [facility] Diastolic blood pressure 2023-05-21 15:16:00 77 mm[Hg] [facility] Heart rate 2023-05-21 15:16:00 74 /min [facility] Body temperature 2023-05-21 15:16:00 36.61 Steffanie [facility] Body height 2023-05-21 15:16:00 167.6 cm [facility] Body weight 2023-05-21 15:16:00 117.663 kg [facility] BMI 2023-05-21 15:16:00 41.87 kg/m2 [facility] Systolic blood pressure 2023-05-19 13:56:00 124 mm[Hg] [facility] Diastolic blood pressure 2023-05-19 13:56:00 81 mm[Hg] [facility] Heart rate 2023-05-19 13:56:00 116 /min [facility] 2023-05-19 13:56:00 36.61 Steffanie [facility] Respiratory rate 2023-05-19 13:56:00 16 /min [facility] Body height 2023-05-19 13:56:00 167.6 cm [facility] 2023-05-19 13:56:00 116.574 [facility] 2023-05-19 13:56:00 41.48 kg/m2 [facility] Systolic [facility] pressure 2023-05-17 16:04:00 127 mm[Hg] [facility] Diastolic blood pressure 2023-05-17 16:04:00 81 mm[Hg] [facility] Heart rate 2023-05-17 16:04:00 80 /min [facility] Body temperature 2023-05-17 16:04:00 36.78 Steffanie [facility] Body height 2023-05-17 16:04:00 167.6 cm [facility] Body weight 2023-05-17 16:04:00 117.028 kg [facility] BMI 2023-05-17 16:04:00 41.64 kg/m2 [facility] Systolic blood pressure 2023-05-12 14:14:00 115 mm[Hg] [facility] Diastolic blood pressure 2023-05-12 14:14:00 80 mm[Hg] [facility] Heart rate 2023-05-12 14:14:00 123 /min [facility] Body temperature 2023-05-12 14:14:00 36.28 Steffanie [facility] Respiratory rate 2023-05-12 14:14:00 16 /min [facility] Body height 2023-05-12 14:14:00 167.6 cm [facility] 2023-05-12 14:14:00 116.121 [facility] 2023-05-12 14:14:00 41.32 kg/m2 [facility] Sy[facility] 2023-05-05 13:42:00 119 mm[Hg] [facility] Diastolic blood pressure 2023-05-05 13:42:00 80 mm[Hg] [facility] Heart rate 2023-05-05 13:42:00 88 /min [facility] [facility] Body temperature 2023-05-05 13:42:00 36.83 Steffanie [facility] Respiratory rate 2023-05-05 13:42:00 16 /min [facility] Body height 2023-05-05 13:42:00 167.6 cm [facility] Body weight 2023-05-05 13:42:00 115.577 kg [facility] BMI 2023-05-05 13:42:00 41.13 kg/m2 [facility] Systolic blood pressure 2023-04-28 15:09:00 109 mm[Hg] [facility] Diastolic blood pressure 2023-04-28 15:09:00 73 mm[Hg] [facility] Heart rate 2023-04-28 15:09:00 85 /min [facility] Respiratory rate 2023-04-28 15:09:00 18 /min [facility] Body height 2023-04-28 15:09:00 167.6 cm [facility] Body weight 2023-04-28 15:09:00 116.574 kg [facility] BMI 2023-04-28 15:09:00 41.48 kg/m2 [facility] Systolic blood pressure 2023-04-21 15:08:00 109 mm[Hg] [facility] Diastolic blood pressure 2023-04-21 15:08:00 71 mm[Hg] [facility] Heart rate 2023-04-21 15:08:00 91 /min [facility] Body temperature 2023-04-21 15:08:00 36.72 Steffanie [facility] Respiratory rate 2023-04-21 15:08:00 18 /min [facility] Body height 2023-04-21 15:08:00 167.6 cm [facility] Body weight 2023-04-21 15:08:00 114.941 kg [facility] BMI 2023-04-21 15:08:00 40.90 kg/m2 [facility] Systolic blood pressure 2023-04-19 18:57:00 116 mm[Hg] [facility] Diastolic blood pressure 2023-04-19 18:57:00 72 mm[Hg] [facility] Heart rate 2023-04-19 18:57:00 88 /min [facility] Body temperature 2023-04-19 18:57:00 36.83 Steffanie [facility] Respiratory rate 2023-04-19 18:57:00 16 /min [facility] Body height 2023-04-19 18:57:00 167.6 cm [facility] Body weight 2023-04-19 18:57:00 114.17 kg [facility] BMI 2023-04-19 18:57:00 40.63 kg/m2 [facility] Oxygen saturation in Arterial blood by Pulse oximetry 2023-04-19 18:57:00 97 /min [facility] Diastolic blood pressure 2023-04-07 15:33:00 73 mm[Hg] [facility] Heart rate 2023-04-07 15:33:00 79 /min [facility] Body temperature 2023-04-07 15:33:00 36.78 Steffanie [facility] Respiratory rate 2023-04-07 15:33:00 17 /min [facility] Body height 2023-04-07 15:33:00 167.6 cm [facility] Body weight 2023-04-07 15:33:00 116.121 kg [facility] BMI 2023-04-07 15:33:00 41.32 kg/m2 [facility] Systolic blood pressure 2023-04-07 15:33:00 116 mm[Hg] [facility] Systolic blood pressure 2023-03-24 19:56:00 117 mm[Hg] [facility] Diastolic blood pressure 2023-03-24 19:56:00 74 mm[Hg] [facility] Heart rate 2023-03-24 19:56:00 79 /min [facility] Body temperature 2023-03-24 19:56:00 36.67 Steffanie [facility] Respiratory rate 2023-03-24 19:56:00 18 /min [facility] Body height 2023-03-24 19:56:00 167.6 cm [facility] Body weight 2023-03-24 19:56:00 116.257 kg [facility] BMI 2023-03-24 19:56:00 41.37 kg/m2 [facility] Systolic blood pressure 2023-03-10 21:00:00 114 mm[Hg] [facility] Diastolic blood pressure 2023-03-10 21:00:00 73 mm[Hg] [facility] Heart rate 2023-03-10 21:00:00 77 /min [facility] Body temperature 2023-03-10 21:00:00 36.94 Steffanie [facility] Respiratory rate 2023-03-10 21:00:00 16 /min [facility] Body height 2023-03-10 21:00:00 167.6 cm [facility] Body weight 2023-03-10 21:00:00 115.032 kg [facility] BMI 2023-03-10 21:00:00 40.93 kg/m2 [facility] Oxygen saturation in Arterial blood by Pulse oximetry 2023-03-10 21:00:00 98 /min [facility] Systolic blood pressure 2023-02-17 17:55:00 126 mm[Hg] [facility] Diastolic blood pressure 2023-02-17 17:55:00 79 mm[Hg] [facility] Heart rate 2023-02-17 17:55:00 75 /min [facility] Body temperature 2023-02-17 17:55:00 37 Steffanie [facility] Respiratory rate 2023-02-17 17:55:00 16 /min [facility] Body height 2023-02-17 17:55:00 167.6 cm [facility] Body weight 2023-02-17 17:55:00 111.993 kg [facility] BMI 2023-02-17 17:55:00 39.85 kg/m2 [facility] Oxygen saturation in Arterial blood by Pulse oximetry 2023-02-17 17:55:00 98 /min [facility] Systolic blood pressure 2023-01-20 21:04:00 116 mm[Hg] [facility] Diastolic blood pressure 2023-01-20 21:04:00 72 mm[Hg] [facility] Heart rate 2023-01-20 21:04:00 79 /min [facility] Body temperature 2023-01-20 21:04:00 37 Steffanie [facility] Respiratory rate 2023-01-20 21:04:00 16 /min [facility] Body height 2023-01-20 21:04:00 167.6 cm [facility] Body weight 2023-01-20 21:04:00 109.907 kg [facility] BMI 2023-01-20 21:04:00 39.11 kg/m2 [facility] Oxygen saturation in Arterial blood by Pulse oximetry 2023-01-20 21:04:00 98 /min [facility] Systolic blood pressure 2022-12-23 15:06:00 118 mm[Hg] [facility] Diastolic blood pressure 2022-12-23 15:06:00 76 mm[Hg] [facility] Heart rate 2022-12-23 15:06:00 77 /min [facility] Respiratory rate 2022-12-23 15:06:00 18 /min [facility] Body height 2022-12-23 15:06:00 167.6 cm [facility] Body weight 2022-12-23 15:06:00 105.688 kg [facility] BMI 2022-12-23 15:06:00 37.61 kg/m2 [facility] Systolic blood pressure 2022-11-25 16:19:00 116 mm[Hg] [facility] Diastolic blood pressure 2022-11-25 16:19:00 77 mm[Hg] [facility] Heart rate 2022-11-25 16:19:00 72 /min [facility] Respiratory rate 2022-11-25 16:19:00 18 /min [facility] Body height 2022-11-25 16:19:00 167.6 cm [facility] Body weight 2022-11-25 16:19:00 103.874 kg [facility] BMI 2022-11-25 16:19:00 36.96 kg/m2 [facility] Systolic blood pressure 2022-10-27 19:07:00 121 mm[Hg] [facility] Diastolic blood pressure 2022-10-27 19:07:00 81 mm[Hg] [facility] Heart rate 2022-10-27 19:07:00 71 /min [facility] Respiratory rate 2022-10-27 19:07:00 18 /min [facility] Body height 2022-10-27 19:07:00 167.6 cm [facility] Body weight 2022-10-27 19:07:00 103.42 kg [facility] BMI 2022-10-27 19:07:00 36.80 kg/m2 [facility] Systolic blood pressure 2020-07-02 17:17:00 132 mm[Hg] [facility] Diastolic blood pressure 2020-07-02 17:17:00 88 mm[Hg] [facility] Heart rate 2020-07-02 17:17:00 57 /min [facility] Body temperature 2020-07-02 17:17:00 36.83 Steffanie [facility] Respiratory rate 2020-07-02 17:17:00 18 /min [facility] Body height 2020-07-02 17:17:00 167.6 cm [facility] Body weight 2020-07-02 17:17:00 111.585 kg [facility] BMI 2020-07-02 17:17:00 39.71 kg/m2 [facility] Systolic blood pressure 2020-07-02 17:17:00 132 mm[Hg] [facility] Diastolic blood pressure 2020-07-02 17:17:00 88 mm[Hg] [facility] Heart rate 2020-07-02 17:17:00 57 /min [facility] Body temperature 2020-07-02 17:17:00 36.83 Steffanie [facility] Respiratory rate 2020-07-02 17:17:00 18 /min [facility] Body height 2020-07-02 17:17:00 167.6 cm [facility] Body weight 2020-07-02 17:17:00 111.585 kg [facility] BMI 2020-07-02 17:17:00 39.71 kg/m2 [facility] Systolic blood pressure 2020-06-11 20:35:00 108 mm[Hg] [facility] Diastolic blood pressure 2020-06-11 20:35:00 70 mm[Hg] [facility] Heart rate 2020-06-11 20:35:00 67 /min [facility] Body temperature 2020-06-11 20:35:00 36.72 Steffanie [facility] Respiratory rate 2020-06-11 20:35:00 18 /min [facility] Body height 2020-06-11 20:35:00 167.6 cm [facility] Body weight 2020-06-11 20:35:00 111.676 kg [facility] BMI 2020-06-11 20:35:00 39.74 kg/m2 [facility] Systolic blood pressure 2020-06-11 20:35:00 108 mm[Hg] [facility] Diastolic blood pressure 2020-06-11 20:35:00 70 mm[Hg] [facility] Heart rate 2020-06-11 20:35:00 67 /min [facility] Body temperature 2020-06-11 20:35:00 36.72 Steffanie [facility] Respiratory rate 2020-06-11 20:35:00 18 /min [facility] Body height 2020-06-11 20:35:00 167.6 cm [facility] Body weight 2020-06-11 20:35:00 111.676 kg [facility] BMI 2020-06-11 20:35:00 39.74 kg/m2 [facility] Systolic blood pressure 2020-06-04 22:30:00 121 mm[Hg] [facility] Diastolic blood pressure 2020-06-04 22:30:00 67 mm[Hg] [facility] Heart rate 2020-06-04 22:30:00 68 /min [facility] Body temperature 2020-06-04 22:30:00 37 Steffanie [facility] Respiratory rate 2020-06-04 22:30:00 18 /min [facility] Oxygen saturation in Arterial blood by Pulse oximetry 2020-06-04 22:30:00 97 /min [facility] Body height 2020-06-03 11:00:00 167.6 cm [facility] Body weight 2020-06-03 11:00:00 117.391 kg [facility] BMI 2020-06-03 11:00:00 41.79 kg/m2 [facility] Systolic blood pressure 2020-06-04 22:30:00 121 mm[Hg] [facility] Diastolic blood pressure 2020-06-04 22:30:00 67 mm[Hg] [facility] Heart rate 2020-06-04 22:30:00 68 /min [facility] Body temperature 2020-06-04 22:30:00 37 Steffanie [facility] Respiratory rate 2020-06-04 22:30:00 18 /min [facility] Oxygen saturation in Arterial blood by Pulse oximetry 2020-06-04 22:30:00 97 /min [facility] Body height 2020-06-03 11:00:00 167.6 cm [facility] Body weight 2020-06-03 11:00:00 117.391 kg [facility] BMI 2020-06-03 11:00:00 41.79 kg/m2 [facility] Systolic blood pressure 2020-05-28 21:25:00 113 mm[Hg] [facility] Diastolic blood pressure 2020-05-28 21:25:00 75 mm[Hg] [facility] Heart rate 2020-05-28 21:25:00 73 /min [facility] Body temperature 2020-05-28 21:25:00 36.89 Steffanie [facility] Respiratory rate 2020-05-28 21:25:00 18 /min [facility] Body height 2020-05-28 21:25:00 167.6 cm [facility] Body weight 2020-05-28 21:25:00 118.389 kg [facility] BMI 2020-05-28 21:25:00 42.13 kg/m2 [facility] Systolic blood pressure 2020-05-28 21:25:00 113 mm[Hg] [facility] Diastolic blood pressure 2020-05-28 21:25:00 75 mm[Hg] [facility] Heart rate 2020-05-28 21:25:00 73 /min [facility] Body temperature 2020-05-28 21:25:00 36.89 Steffanie [facility] Respiratory rate 2020-05-28 21:25:00 18 /min [facility] Body height 2020-05-28 21:25:00 167.6 cm [facility] Body weight 2020-05-28 21:25:00 118.389 kg [facility] BMI 2020-05-28 21:25:00 42.13 kg/m2 [facility] Systolic blood pressure 2020-05-22 21:51:00 126 mm[Hg] [facility] Diastolic blood pressure 2020-05-22 21:51:00 85 mm[Hg] [facility] Heart rate 2020-05-22 21:51:00 77 /min [facility] Body temperature 2020-05-22 21:51:00 36.89 Steffanie [facility] Respiratory rate 2020-05-22 21:51:00 18 /min [facility] Body height 2020-05-22 21:51:00 167.6 cm [facility] Body weight 2020-05-22 21:51:00 117.935 kg [facility] BMI 2020-05-22 21:51:00 41.97 kg/m2 [facility] Systolic blood pressure 2020-05-06 21:31:00 127 mm[Hg] [facility] Diastolic blood pressure 2020-05-06 21:31:00 74 mm[Hg] [facility] Heart rate 2020-05-06 21:31:00 83 /min [facility] Body temperature 2020-05-06 21:31:00 37 Steffanie [facility] Respiratory rate 2020-05-06 21:31:00 18 /min [facility] Body height 2020-05-06 21:31:00 167.6 cm [facility] Body weight 2020-05-06 21:31:00 115.214 kg [facility] BMI 2020-05-06 21:31:00 41.00 kg/m2 [facility] Systolic blood pressure 2020-04-18 16:08:00 124 mm[Hg] [facility] Diastolic blood pressure 2020-04-18 16:08:00 73 mm[Hg] [facility] Heart rate 2020-04-18 16:08:00 82 /min [facility] Body temperature 2020-04-18 16:08:00 36.83 Steffanie [facility] Respiratory rate 2020-04-18 16:08:00 18 /min [facility] Body height 2020-04-18 16:08:00 167.6 cm [facility] Body weight 2020-04-18 16:08:00 114.034 kg [facility] BMI 2020-04-18 16:08:00 40.58 kg/m2 [facility] Systolic blood pressure 2020-04-05 19:30:00 113 mm[Hg] [facility] Diastolic blood pressure 2020-04-05 19:30:00 72 mm[Hg] [facility] Heart rate 2020-04-05 19:30:00 80 /min [facility] Body temperature 2020-04-05 19:30:00 36.78 Steffanie [facility] Respiratory rate 2020-04-05 19:30:00 18 /min [facility] Body height 2020-04-05 19:30:00 167.6 cm [facility] Body weight 2020-04-05 19:30:00 112.583 kg [facility] BMI 2020-04-05 19:30:00 40.06 kg/m2 [facility] Body weight 2020-03-15 14:13:00 109.77 kg [facility] BMI 2020-03-15 14:13:00 39.06 kg/m2 [facility] Systolic blood pressure 2020-03-15 14:13:00 117 mm[Hg] [facility] Diastolic blood pressure 2020-03-15 14:13:00 69 mm[Hg] [facility] Heart rate 2020-03-15 14:13:00 78 /min [facility] Body temperature 2020-03-15 14:13:00 36.89 Steffanie [facility] Respiratory rate 2020-03-15 14:13:00 18 /min [facility] Body height 2020-03-15 14:13:00 167.6 cm [facility] Procedures Procedure Date / Time Performed Performing Clinician Source PATIENT FINANCIAL RESPONSIBILITY - ALL FORMS 2023-10-11 06:01:00 Doctor Unassigned, [place] [facility] GLUCOSE FASTING 2023-05-26 11:17:00 Adum[facility] 2023-05-26 11:17:00 Adum, Dolores Gomez [facility] CBC WITH DIFF 2023-05-26 08:11:00 Adum, Dolores Wyatte [facility] CBC WITH DIFF 2023-05-26 08:11:00 Adum, Dolores Dodson [facility] CENTRAL NEURAXIAL BLOCK 2023-05-25 13:15:00 Bill Cox [facility] SECTION 2023-05-25 12:49:00 Adum, [facility] SAL[facility]OM[facility] 2023-05-25 12:49:00 Adum, Dolores Dodson [facility] SECTION 2023-05-25 12:49:00 Adum, Dolores [facility]OM[facility] 2023-05-25 12:49:00 [facility] 2023-05-25 11:25:00 Adum, Alice villalpandon Aiyana [facility] POCT GLUCOSE (AUTOMATED) 2023-05-25 11:25:00 Adum, Alice villalpandon Aiyana [facility] NON-STRESS TEST 2023-05-21 20:07:28 Adum, Dolores Bronson [facility] DISABILITY/FMLA 2023-05-21 05:01:00 Doctor Unass igned, [place] [facility] NON-STRESS TEST 2023-05-19 19:31:05 Adum, Dolores Bronson [facility] POCT URINALYSIS W/O SPECIFIC GRAVITY 2023-05-19 00:00:00 Adum, Dolores Bronson [facility] NON-STRESS TEST 2023-05-17 17:08:35 Kindra Griggs [facility] SECOND AND THIRD TRIMESTER ULTRASOUND 2023-05-17 14:46:00 Adum, Dolores Bronson [facility] NON-STRESS TEST 2023-05-12 15:37:44 Adum, Dolores Bronson [facility] FLU VACC ([id number]), 6 MO-64 YRS, .5ML, IM, QUAD (FLUCELVAX) 2023-05-12 14:29:00 Adum, Dolores Bronson [facility] DSU PRE-OP 2023-05-12 05:01:00 Doctor Unass igned, [place] [facility] DSU PRE-OP 2023-05-12 05:01:00 Doctor Unass igned, [place] [facility] POCT URINALYSIS W/O SPECIFIC GRAVITY 2023-05-12 00:00:00 Adum, Dolores Bronson [facility] NON-STRESS TEST 2023-05-05 14:15:29 Adum, Dolores Aiyana [facility] POCT URINALYSIS W/O SPECIFIC GRAVITY 2023-05-05 00:00:00 Adum, Dolores Aiyana [facility] NON-STRESS TEST 2023-04-28 16:21:53 Adum, Dolores Aiyana [facility] POCT URINALYSIS W/O SPECIFIC GRAVITY 2023-04-28 00:00:00 Adum, Dolores Bronson [facility] NON-STRESS TEST 2023-04-21 16:10:10 Adum, Dolores Bronson [facility] POCT URINALYSIS W/O SPECIFIC GRAVITY 2023-04-21 00:00:00 Adum, Dolores Bronson [facility] MEDICAL RELEASE/CLEARANCE FORMS 2023-04-07 05:01:00 Doctor Unassigned, [place] [facility] POCT URINALYSIS W/O SPECIFIC GRAVITY 2023-04-07 00:00:00 Adum, Dolores Bronson [facility] TDAP VACCINE, >11 YRS, IM 2023-03-24 20:07:43 Adum, Krista Bronson [facility] POCT URINALYSIS W/O SPECIFIC GRAVITY 2023-03-24 00:00:00 Adum, Dolores Bronson [facility] STERILIZATION CONSENT FORM 2023-03-10 05:01:00 Doctor Unassigned, [place] [facility] POCT URINALYSIS W/O SPECIFIC GRAVITY 2023-03-10 00:00:00 Adum, Dolores Bronson [facility] POCT URINALYSIS W/O SPECIFIC GRAVITY 2023-02-17 00:00:00 Adum, Dolores Bronson [facility] POCT URINALYSIS W/O SPECIFIC GRAVITY 2023-01-20 00:00:00 Adum, Dolores Bronson [facility] POCT URINALYSIS W/O SPECIFIC GRAVITY 2022-12-23 00:00:00 Adum, Dolores Bronson [facility] SCANNED LAB RESULTS 2022-11-30 05:01:00 Doctor Marita thomason, [place] [facility] POCT URINALYSIS W/O SPECIFIC GRAVITY 2022-11-25 00:00:00 Adum, Dolores Bronson [facility] US OB TRANSVAGINAL 2022-10-27 22:43:38 Adum, Dolores Bronson [facility] GC & CHLAMYDIA AMPLIFIED ASSAY 2022-10-27 20:07:00 Adum, Dolores Bronson [facility] HIGH RISK HPV-THIN PREP 2022-10-27 20:07:00 Adum, Marilee Bronson [facility] TRICHOMONAS AMPLIFIED ASSAY 2022-10-27 20:07:00 Adum, Dolores Bronson [facility] PAP SMEAR-LIQUID BASED-CP 2022-10-27 20:07:00 Adum, Krista Bronson [facility] MATERIAL ANALYST CLINIC ULTRASOUND 2022-10-27 05:01:00 Doc bryant Unassigned, [place] [facility] POCT TEST 2022-10-27 00:00:00 Adum, Dolores Bronson [facility] POCT URINALYSIS W/O SPECIFIC GRAVITY 2022-10-27 00:00:00 Adum, Dolores Bronson [facility] CONSENT FOR ORAL CONTRACEPTIVES 2020-07-02 06:01:00 Doctor Unassigned, [place] [facility] POCT TEST 2020-07-02 00:00:00 Jean Ricci [facility] DME/SUPPLY JUSTIFICATION 2020-06-14 06:01:00 Doc bryant Unassigned, [place] [facility] CBC WITH DIFF 2020-06-04 09:08:[address] [facility] VENOUS CORD GAS 2020-06-03 13:42:00 Kindra Griggs [facility] SECTION 2020-06-03 12:43:00 Kindra Griggs [facility] CBC WITH DIFF 2020-06-03 11:48:[address] [facility] HEPATITIS B SURFACE ANTIGEN 2020-06-03 11:48:00 Kindra Griggs [facility] ADC OR RUPINDER ONLY - RPR 2020-06-03 11:48:00 Stephania Griggs [facility] HIV 1/2 AG-AB WITH REFLEX 2020-06-03 11:48:00 Stephania Griggs [facility] HB ABO GROUPING 2020-06-03 11:44:00 Kindra Griggs [facility] RHO (D) IMMUNE GLOBULIN 2020-06-03 11:44:00 Kindra Griggs [facility] HOSPITAL ADMISSION 2020-06-03 05:01:00 Doctor Un assigned, [place] [facility] CONSENT/REFUSAL FOR DIAGNOSIS AND TREATMENT 2020-05-31 16:00:16 Doctor Unassigned, [place] [facility] ASSIGNMENT OF BENEFITS 2020-05-31 15:59:58 Docto r Unassigned, [place] [facility] POCT URINALYSIS W/O SPECIFIC GRAVITY 2020-05-28 00:00:00 Kindra Griggs [facility] >14 WEEKS US LIMITED 2020-05-22 22:26:46 Kindra Griggs [facility] FLU VACC ([id number]), 6+ MONTHS, IM, QUAD 2020-05-22 21:52:59 Kindra Griggs [facility] DSU PRE-OP 2020-05-22 05:01:00 Doctor Unass igned, [place] [facility] POCT URINALYSIS W/O SPECIFIC GRAVITY 2020-05-06 00:00:00 Kindra Griggs [facility] POCT URINALYSIS W/O SPECIFIC GRAVITY 2020-04-18 16:10:00 Eugene Ricci [facility] POCT URINALYSIS W/O SPECIFIC GRAVITY 2020-04-05 00:00:00 Kindra Griggs [facility] GLUCOSE 1 HOUR POST PRANDIAL 2020-03-15 16:38:00 Kindra Griggs [facility] CBC WITH DIFF 2020-03-15 16:38:[address] [facility] TDAP VACCINE, >11 YRS, IM 2020-03-15 14:22:25 Keiry Eugene [facility] POCT URINALYSIS W/O SPECIFIC GRAVITY 2020-03-15 00:00:00 Eugene Ricci [facility] AGREEMENTS AUTHORIZATIONS AND IRREVOCABLE ASSIGNMENTS (FORM 2001) 2020-01-25 05:01:00 Doctor Unassigned, [place] [facility] Encounters Start Date/Time End Date/Time Encounter Type Admission Type Attending Clinicians Care Facility Care Department Encounter ID Source 2024-07-25 10:30:00 2024-07-25 10:30:00 Outpatient R DOLORES ALCAZAR [facility] [id number] [facility] 2023-12-07 10:40:00 2023-12-07 10:40:00 Outpatient R [id number] 2023-11-29 09:40:00 2023-11-29 09:40:00 Outpatient R OBI-ANTELMO , BLANCA OBI-ANTELMO , BLANCA [facility] [id number] [facility] 2023-11-18 11:00:00 2023-11-18 11:00:00 Outpatient R OBI-ANTELMO , [facility] [id number] [facility] 2023-11-11 09:00:00 2023-11-11 09:00:00 Outpatient R OBI-ANTELMO BLAN[facility] [id number] 2023-10-28 00:00:00 2023-10-28 00:00:00 Patient Secure Msg Doctor Unassigned, [place] [facility] 1..840.114 350.1.13.10 4.2.7.2.686 [id number] 019 [id number] [facility] 2023-10-11 11:15:00 2023-10-11 11:30:00 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 Visit 2, Adc Lab Dawson-Antelmo [facility] 1.2.840.114 350.1.13.10 4.2.7.2.686 [id number] [facility] 2023-10-11 10:00:00 2023-10-11 10:59:04 Outpatient R OBI-ANTELMO BLANCA [facility] [id number] [facility] 2023-10-11 10:00:00 2023-10-11 10:59:04 Office Visit O[facility]ouie[facility] 1.2840.114 350.1.13.10 4.2.7.2.686 [id number] 044 [id number] [facility] 2023-10-11 00:00:00 2023-10-11 00:00:00 Orders Only Doctor Unassigned, [place] [facility] 1.2840.114 350.1.13.10 4.2.7.2.686 [id number] [facility] 2023-07-29 00:00:00 2023-07-29 00:00:00 Telephone Adum Dolores [facility] 1.2.840.114 350.1.13.10 4.2.7.2.686 [id number] 134 [id number] [facility] 2023-07-22 09:20:00 2023-07-22 09:20:00 Outpatient R OBI-ANTELMO , BLANCA OBI-ANTELMO , BLANCA [facility] [id number] [facility] 2023-07-16 10:15:00 2023-07-16 10:30:00 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 Visit 2, Adc Lab Ottoniel [facility] BUILDING 1.2.84.114 350.1.13.10 4.2.7.2.686 [id number] [facility] 2023-07-16 10:15:00 2023-07-16 10:27:15 [facility] [id number] [facility] 2023-07-16 09:45:00 2023-07-16 10:13:18 [facility] 1.2.840.114 350.1.13.10 4.2.7.2.686 [id number] 134 [id number] [facility] 2023-06-22 11:15:00 2023-06-22 11:50:05 Outpatient R ADUM, [facility] [id number] [facility] 2023-06-22 11:15:00 2023-06-22 11:50:05 Routine Visit Adum, Dolores Bronson [facility] BUILDING 1.2.840.114 350.1.13.10 4.2.7.2.686 [id number] 134 [id number] [facility] 2023-06-01 10:00:00 2023-06-01 10:19:11 Outpatient R ADUM, DOLORES [facility] [id number] [facility] 2023-06-01 10:00:00 2023-06-01 10:19:11 Nurse Visit Nurse, [facility] Adum, Dolores Bronson [facility] 1.2.840.114 350.1.13.10 4.2.7.2.686 [id number] 134 [id number] [facility] 2023-05-25 05:57:00 2023-05-26 18:30:00 Inpatient P ADUM, DOLORES [facility] [id number] [facility] 2023-05-25 05:57:00 2023-05-26 18:30:00 Hospital Encounter Adum, Dolores [facility] 1.2840.114 350.1.13.10 4.2.7.2.686 [id number] 083 [id number] [facility] 2023-05-26 00:00:00 2023-05-26 00:00:00 Telephone Adum, Dolores [facility] 1.2.840.114 350.1.13.10 4.2.7.2.686 [id number] 134 [id number] [facility] 2023-05-26 00:00:00 2023-05-26 00:00:00 Telephone Adum, Dolores [facility] BUILDING 1.2.840.114 350.1.13.10 4.2.7.2.686 [id number] 134 [id number] [facility] 2023-05-25 08:00:00 2023-05-25 10:14:00 Surgery AdDolores gilliam [facility] 1.2.840.114 350.1.13.10 4.2.7.2.686 [id number] [id number] [facility] 2023-05-25 08:05:00 2023-05-25 09:50:00 Anesthesia Event ReneElianeOdettebethany Jhaveri Sreekanth Del Valle [facility] 1.2840.114 350.1.13.10 4.2.7.2.686 [id number] 013 [id number] [facility] 2023-05-24 10:45:00 2023-05-24 11:00:00 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 Visit Pob, Adc Lab Main Admarlo [facility] PROFESSIO NAL BUILDING 1.20.114 350.1.13.10 4.2.7.2.686 [id number] 353 [id number] [facility] 2023-05-24 10:45:00 2023-05-24 10:45:00 Outpatient R BENMARLO [facility] [id number] [facility] 2023-05-21 10:00:00 2023-05-21 10:53:47 Outpatient R BENMARLO [facility] [id number] [facility] 2023-05-21 10:00:00 2023-05-21 10:53:47 Routine Visit Room, [facility] N[facility] Admarlo [facility] PROFESSIO NAL BUILDING 1.20.114 350.1.13.10 4.2.7.2.686 [id number] 134 [id number] [facility] 2023-05-21 00:00:00 2023-05-21 00:00:00 Orders Only Doctor Unassigned, [place] [facility] 1.2840.114 350.1.13.10 4.2.7.2.686 [id number] [id number] [facility] 2023-05-19 09:00:00 2023-05-19 11:06:35 Outpatient R DOLORES ALCAZAR [facility] [id number] [facility] 2023-05-19 09:00:00 2023-05-19 11:06:35 [facility]ine [facility], [facility] Ad[facility]ores [facility] 1.840.114 350.1.13.10 4.2.7.2.686 [id number] 134 [id number] [facility] 2023-05-19 10:00:00 2023-05-19 10:00:00 Outpatient R [facility] [id number] [facility] 2023-05-18 10:00:00 2023-05-18 10:00:00 Outpatient R [facility] [id number] [facility] 2023-05-17 09:00:00 2023-05-17 11:39:25 Routine Visit Room, [facility] Gi Vance [facility] 1..840.114 350.1.13.10 4.2.7.2.686 [id number] 134 [id number] [facility] 2023-05-17 09:30:00 2023-05-17 10:32:10 Outpatient P GI VANCE SHANNON [facility] [id number] [facility] 2023-05-17 09:30:00 2023-05-17 10:32:10 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 Visit Ultrasound, Jens-Gi Lazcano [facility]ILD [facility] 1.840.114 350.1.13.10 4.2.7.2.686 [id number] [facility] 2023-05-14 08:00:00 2023-05-14 08:28:26 Outpatient R OTOTNIEL DOLORES [facility] [id number] [facility] 2023-05-14 08:00:00 2023-05-14 08:15:00 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, Jnes Castellanos, Critical [facility] 1.114 350.1.13.10 4.2.7.2.686 [id number] 353 [id number] [facility] 2023-05-12 09:00:00 2023-05-12 10:08:52 Outpatient R ADUM, [facility] [id number] [facility] 2023-05-12 09:00:00 2023-05-12 10:08:52 Routine Visit 1, [facility] 1.114 350.1.13.10 4.2.7.2.686 [id number] 134 [id number] [facility] 2023-05-05 08:00:00 2023-05-05 09:19:38 Outpatient R ADUM, [facility] [id number] [facility] 2023-05-05 08:00:00 2023-05-05 09:19:38 Routine Visit 1, [facility] 1.114 350.1.13.10 4.2.7.2.686 [id number] 134 [id number] [facility] 2023-04-28 10:00:00 2023-04-28 11:20:17 Outpatient R ADUM, [facility] [id number] [facility] 2023-04-28 10:00:00 2023-04-28 11:20:17 Routine Visit 1, [facility], [facility] 1.114 350.1.13.10 4.2.7.2.686 [id number] 134 [id number] [facility] 2023-04-21 10:00:00 2023-04-21 11:11:36 [facility] 1.2.114 350.1.13.10 4.2.7.2.686 [id number] 134 [id number] [facility] 2023-04-21 10:00:00 2023-04-21 11:11:36 Outpatient R ADUM [facility] [id number] [facility] 2023-04-20 00:00:00 2023-04-20 00:00:00 Telephone Adum, [facility] 1.84.114 350.1.13.10 4.2.7.2.686 [id number] 134 [id number] [facility] 2023-04-19 13:30:00 2023-04-19 13:55:32 Outpatient R ADMARLO [facility] [id number] [facility] 2023-04-19 13:30:00 2023-04-19 13:55:32 [facility] 1.284.114 350.1.13.10 4.2.7.2.686 [id number] 134 [id number] [facility] 2023-04-08 08:30:00 2023-04-08 08:30:00 Outpatient R [facility] [id number] [facility] 2023-04-07 16:15:00 2023-04-07 16:15:00 Routine Visit Ad [facility] 1.84.114 350.1.13.10 4.2.7.2.686 [id number] 134 [id number] [facility] 2023-04-07 16:15:00 2023-04-07 11:10:10 Outpatient R ADMARLO [facility] [id number] [facility] 2023-04-07 00:00:00 2023-04-07 00:00:00 Orders Only Doctor Unassigned, [place] [facility] 1..114 350.1.13.10 4.2.7.2.686 [id number] [id number] [facility] 2023-04-07 00:00:00 2023-04-07 00:00:00 Telephone Adum, [facility] 1..114 350.1.13.10 4.2.7.2.686 [id number] 134 [id number] [facility] 2023-03-24 14:45:00 2023-03-24 15:40:19 Outpatient R OTTONIEL [facility] [id number] [facility] 2023-03-24 14:45:00 2023-03-24 15:40:[address] [facility] 1..114 350.1.13.10 4.2.7.2.686 [id number] 134 [id number] [facility] 2023-03-24 13:45:00 2023-03-24 13:45:00 Outpatient R OTTONIEL [facility] [id number] [facility] 2023-03-22 08:00:00 2023-03-22 11:49:53 Outpatient R OTTONIEL [facility] [id number] [facility] 2023-03-22 08:00:00 2023-03-22 08:15:00 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, Ang - Db Ottoniel [facility]STACE[facility] 1.840.114 350.1.13.10 4.2.7.2.686 [id number] 353 [id number] [facility] 2023-03-10 16:00:00 2023-03-10 16:32:46 Outpatient R OTTONIEL [facility] [id number] [facility] 2023-03-10 16:00:00 2023-03-10 16:32:46 Routine Visit Adum, [facility] 1.20.114 350.1.13.10 4.2.7.2.686 [id number] 134 [id number] [facility] 2023-03-10 00:00:00 2023-03-10 00:00:00 Orders Only Doctor Unassigned, [place] [facility] 1.2840.114 350.1.13.10 4.2.7.2.686 [id number] [id number] [facility] 2023-03-09 09:00:00 2023-03-09 12:03:38 Outpatient R ADUM, [facility] [id number] [facility] 2023-03-09 09:00:00 2023-03-09 09:15:00 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, Jens Castellanosum, [facility] 1.114 350.1.13.10 4.2.7.2.686 [id number] 353 [id number] [facility] 2023-02-17 13:00:00 2023-02-17 13:12:01 Outpatient R ADUM, [facility] [id number] [facility] 2023-02-17 13:00:00 2023-02-17 13:12:01 Routine Visit Adum, [facility] 1.20.114 350.1.13.10 4.2.7.2.686 [id number] 134 [id number] [facility] 2023-02-03 15:00:00 2023-02-03 16:00:00 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 Visit Ultrasound, Heath Longoria [facility] 1.20.114 350.1.13.10 4.2.7.2.686 [id number] [facility] 2023-02-03 15:00:00 2023-02-03 15:00:00 Outpatient P HEATH GALLO COREY [facility] [id number] [facility] 2023-01-20 16:00:00 2023-01-20 16:32:43 Outpatient R OTTONIEL [facility] [id number] [facility] 2023-01-20 16:00:00 2023-01-20 16:32:43 Routine Visit [facility] 1.840.114 350.1.13.10 4.2.7.2.686 [id number] 134 [id number] [facility] 2022-12-24 13:30:00 2022-12-24 13:45:00 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, Jens - Sukhjinder Alcazar [facility]ILD[facility] 1..840.114 350.1.13.10 4.2.7.2.686 [id number] 353 [id number] [facility] 2022-12-24 13:30:00 2022-12-24 13:30:00 Outpatient R OTTONIEL [facility] [id number] [facility] 2022-12-23 10:00:00 2022-12-23 10:35:37 Outpatient R OTTONIEL [facility] [id number] [facility] 2022-12-23 10:00:00 2022-12-23 10:35:37 Routine Visit Ottoniel [facility] 1.840.114 350.1.13.10 4.2.7.2.686 [id number] 134 [id number] [facility] 2022-12-08 00:00:00 2022-12-08 00:00:[address] 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, Jens - Db Ottoniel, [facility] BUILDING 1.0114 350.1.13.10 4.2.7.2.686 [id number] 353 [id number] [facility] 2022-11-30 09:00:00 2022-11-30 09:00:00 Outpatient R OTTONIEL [facility] [id number] [facility] 2022-11-30 00:00:00 2022-11-30 00:00:00 Orders Only Doctor Unassigned, [place] [facility] 1.0.114 350.1.13.10 4.2.7.2.686 [id number] [facility] 2022-11-25 11:15:00 2022-11-25 11:38:29 Outpatient R OTTONIEL [facility] [id number] [facility] 2022-11-25 11:15:00 2022-11-25 11:38:[address] 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, Jens - Sukhjinder Alcazar, [facility] BUILDING 1.114 350.1.13.10 4.2.7.2.686 [id number] 353 [id number] [facility] 2022-11-19 09:00:00 2022-11-19 09:00:00 Outpatient R OTTONIEL [facility] [id number] [facility] 2022-10-27 14:00:00 2022-10-27 15:35:40 Outpatient DOLORES MCKEON [facility] [id number] [facility] 2022-10-27 14:00:00 2022-10-27 15:35:40 Initial Visit Benmarlo Dolores Bronson [facility] 1.840.114 350.1.13.10 4.2.7.2.686 [id number] 134 [id number] [facility] 2022-10-27 00:00:00 2022-10-27 00:00:00 Orders Only Doctor Unassigned, [place] [facility] 1.840.114 350.1.13.10 4.2.7.2.686 [id number] [facility] 2021-01-14 14:30:00 2021-01-14 14:30:00 Outpatient EUGENE VEGA [facility] [id number] [facility] 2020-12-30 09:00:00 2020-12-30 09:00:00 Outpatient EUGENE VEGA [facility] [id number] [facility] 2020-12-07 13:15:00 2020-12-07 13:15:00 Outpatient KAYLEEN SCHAEFER [facility] [id number] [facility] 2020-11-25 00:00:00 2020-11-25 00:00:00 RefKindra Skinner [facility] 1.840.114 350.1.13.10 4.2.7.2.686 [id number] 134 [id number] [facility] 2020-11-16 13:20:00 2020-11-16 13:20:00 Outpatient [facility] [id number] [facility] 2020-07-02 11:06:01 2020-07-02 11:21:01 Routine Visit Eugene Ricci [facility] Building 1.2.840.114 350.1.13.10 4.2.7.2.686 [id number] 134 [id number] 2020-07-02 11:06:01 2020-07-02 11:21:01 Routine Visit Eugene Ricci [facility] 1.2.840.114 350.1.13.10 4.2.7.2.686 [id number] 134 [id number] [facility] 2020-07-02 11:00:00 2020-07-02 11:00:00 Outpatient R KEIRY [facility] [id number] [facility] 2020-07-02 00:00:00 2020-07-02 00:00:00 Orders Only Doctor Unassigned, [place] [facility] 1.2.840.114 350.1.13.10 4.2.7.2.686 [id number] [id number] 2020-07-02 00:00:00 2020-07-02 00:00:00 Orders Only Doctor Unassigned, [place] [facility] 1.2.840.114 350.1.13.10 4.2.7.2.686 [id number] 009 [id number] [facility] 2020-06-14 00:00:00 2020-06-14 00:00:00 Telephone Kindra Griggs [facility] 1.2.840.114 350.1.13.10 4.2.7.2.686 [id number] 134 [id number] [facility] 2020-06-14 00:00:00 2020-06-14 00:00:00 Orders Only Doctor Unassigned, [place] [facility] 1.2.840.114 350.1.13.10 4.2.7.2.686 [id number] [facility] 2020-06-14 00:00:00 2020-06-14 00:00:00 Telephone Griggs, Kindra Cam [facility] Building 1.2.840.114 350.1.13.10 4.2.7.2.686 [id number] 134 [id number] 2020-06-14 00:00:00 2020-06-14 00:00:00 Orders Only Doctor Unassigned, [place] [facility] 1.2.840.114 350.1.13.10 4.2.7.2.686 [id number] 009 [id number] 2020-06-11 14:14:54 2020-06-11 14:37:51 Nurse Visit Nurse, [facility] Kindra Griggs [facility] 1.2.840.114 350.1.13.10 4.2.7.2.686 [id number] 134 [id number] [facility] 2020-06-11 14:14:54 2020-06-11 14:37:51 Nurse Visit Nurse, [facility] 1.2.840.114 350.1.13.10 4.2.7.2.686 [id number] 134 [id number] 2020-06-11 14:00:00 2020-06-11 14:00:00 Outpatient R [facility] [id number] [facility] 2020-06-03 05:33:00 2020-06-04 18:30:00 Hospital Encounter Kindra Griggs [facility] 1.2.840.114 350.1.13.10 4.2.7.2.686 [id number] [id number] [facility] 2020-06-03 05:33:00 2020-06-04 18:30:00 Hospital Encounter Kindra Griggs [facility] 1.2.840.114 350.1.13.10 4.2.7.2.686 [id number] 083 [id number] 2020-06-03 05:33:00 2020-06-03 05:33:00 Outpatient P KINDRA GRIGGS [facility] [id number] [facility] 2020-06-03 00:00:00 2020-06-03 00:00:00 Orders Only Doctor Unassigned, [place] [facility] 1.2.840.114 350.1.13.10 4.2.7.2.686 [id number] [id number] [facility] 2020-06-03 00:00:00 2020-06-03 00:00:00 Orders Only Doctor Unassigned, [place] [facility] 1.2.840.114 350.1.13.10 4.2.7.2.686 [id number] [id number] 2020-05-31 10:58:53 2020-05-31 11:13:53 Laboratory Only Only, Adc Test Kindra Griggs [facility] 1.2.840.114 350.1.13.10 4.2.7.2.686 [id number] [facility] 2020-05-31 10:15:00 2020-05-31 10:15:00 Outpatient R [facility] [id number] [facility] 2020-05-29 00:00:00 2020-05-29 00:00:00 Telephone Kindra Griggs [facility] 1.2840.114 350.1.13.10 4.2.7.2.686 [id number] 134 [id number] [facility] 2020-05-28 16:00:11 2020-05-28 16:49:53 Routine Visit Kindra Griggs [facility] 1.2.840.114 350.1.13.10 4.2.7.2.686 [id number] 134 [id number] [facility] 2020-05-28 16:00:11 2020-05-28 16:49:53 Routine Visit Kindra Griggs [facility] 1.2.840.114 350.1.13.10 4.2.7.2.686 [id number] 134 [id number] 2020-05-28 15:53:23 2020-05-28 16:08:23 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 1.2.840.114 350.1.13.10 4.2.7.2.686 [id number] 134 [id number] [facility] 2020-05-22 16:09:56 2020-05-22 17:21:44 Routine Visit Kindra Griggs [facility] Building 1.2.840.114 350.1.13.10 4.2.7.2.686 [id number] 134 [id number] [facility] 2020-05-22 16:15:00 2020-05-22 16:15:00 Outpatient R KINDRA GRIGGS [facility] [id number] [facility] 2020-05-20 11:15:00 2020-05-20 11:15:00 Outpatient R EUGENE RICCI [facility] [id number] [facility] 2020-05-20 10:31:01 2020-05-20 10:46:01 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 Visit 2, [facility] 1.2.840.114 350.1.13.10 4.2.7.2.686 [id number] 353 [id number] [facility] 2020-05-06 15:51:49 2020-05-20 10:35:13 Routine Visit Kindra Griggs [facility] Building 1.2.840.114 350.1.13.10 4.2.7.2.686 [id number] 134 [id number] [facility] 2020-05-06 16:00:00 2020-05-06 16:00:00 Outpatient R KINDRA GRIGGS [facility] [id number] [facility] 2020-05-02 09:00:00 2020-05-02 09:00:00 Outpatient [facility] [id number] [facility] 2020-04-19 16:00:00 2020-04-19 16:00:00 Outpatient R [facility] [id number] [facility] 2020-04-18 11:00:18 2020-04-18 11:15:18 Routine Visit BurkeEugene cordero [facility] 1.2.840.114 350.1.13.10 4.2.7.2.686 [id number] 134 [id number] [facility] 2020-04-18 10:45:00 2020-04-18 10:45:00 Outpatient R EUGENE RICCI [facility] [id number] [facility] 2020-04-18 00:00:00 2020-04-18 00:00:00 Letter (Out) Kindra Griggs [facility] 1.2.840.114 350.1.13.10 4.2.7.2.686 [id number] 134 [id number] [facility] 2020-04-18 00:00:00 2020-04-18 00:00:00 Letter (Out) Kindra Griggs [facility] 1.2.840.114 350.1.13.10 4.2.7.2.686 [id number] 134 [id number] [facility] 2020-04-05 16:00:00 2020-04-05 16:00:00 Outpatient R KINDRA GRIGGS [facility] [id number] [facility] 2020-04-05 14:13:39 2020-04-05 14:45:49 Routine Visit Kindra Griggs [facility] 1.2.840.114 350.1.13.10 4.2.7.2.686 [id number] 134 [id number] [facility] 2020-04-05 14:15:00 2020-04-05 14:15:00 Outpatient R KINDRA GRIGGS [facility] [id number] [facility] 2020-03-29 08:15:00 2020-03-29 08:15:00 Outpatient R KINDRA GRIGGS [facility] [id number] [facility] 2020-03-26 13:00:00 2020-03-26 13:00:00 Outpatient R KINDRA GRIGGS [facility] [id number] [facility] 2020-03-26 09:24:04 2020-03-26 09:39:04 Telemedici ne Visit Kindra Griggs [facility] [place] [facility] 1.2.840.114 350.1.13.10 4.2.7.2.686 [id number] 134 [id number] [facility] 2020-03-15 15:37:33 2020-03-15 16:07:33 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 Visit Ultrasound, Adc [facility] 1.2.840.114 350.1.13.10 4.2.7.2.686 [id number] 134 [id number] [facility] 2020-03-15 10:34:25 2020-03-15 10:49:25 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 Visit 2, Adc Lab Kindra Griggs [facility] 1.2.840.114 350.1.13.10 4.2.7.2.686 [id number] [facility] 2020-03-15 08:54:47 2020-03-15 09:40:37 Routine Visit Eugene Ricci [facility] Building 1.2.840.114 350.1.13.10 4.2.7.2.686 [id number] 134 [id number] [facility] 2020-03-15 08:45:00 2020-03-15 08:45:00 Outpatient R EUGENE RICCI [facility] [id number] [facility] 2020-02-14 11:30:00 2020-02-14 11:30:00 Outpatient R KINDRA GRIGGS [facility] [id number] [facility] 2020-02-14 08:14:55 2020-02-14 08:29:55 Telemedici ne Visit Kindra Griggs [facility] 1..840.114 350.1.13.10 4.2.7.2.686 [id number] 134 [id number] [facility] 2020-02-05 09:45:00 2020-02-05 09:45:00 Outpatient R KINDRA GRIGGS [facility] [id number] [facility] 2020-02-04 09:09:34 2020-02-04 09:29:34 Laboratory Only Lab, Adc Fam Pob Estephania Puentes [facility] Office Building One 1..840.114 350.1.13.10 4.2.7.2.686 [id number] [facility] 2020-02-04 09:00:00 2020-02-04 09:00:00 Outpatient R [facility] [id number] [facility] 2020-02-01 00:00:00 2020-02-01 00:00:00 Telephone Anson Kindra [facility] 1..840.114 350.1.13.10 4.2.7.2.686 [id number] [facility] 2020-01-25 13:28:32 2020-01-25 13:43:32 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 Visit 2, [facility] 1.84.114 350.1.13.10 4.2.7.2.686 [id number] [facility] 2020-01-25 13:30:00 2020-01-25 13:30:00 Outpatient R KINDRA GRIGGS [facility] [id number] [facility] 2020-01-25 00:00:00 2020-01-25 00:00:00 Orders Only Doctor Unassigned, [place] [facility] 1.114 350.1.13.10 4.2.7.2.686 [id number] [facility] 2020-01-23 13:49:51 2020-01-23 15:04:51 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 Visit Ultrasound, Jatinder Monroe [facility] MATERIAL ANALYST [facility] 1..114 350.1.13.10 4.2.7.2.686 [id number] [facility] 2020-01-23 14:00:00 2020-01-23 14:00:00 Outpatient P [facility] [id number] [facility] 2020-01-05 07:55:00 2020-01-05 09:38:04 [facility]ici ne [facility].114 350.1.13.10 4.2.7.2.686 [id number] [facility] 2020-01-05 09:15:00 2020-01-05 09:15:00 Outpatient R KEIRY [facility] [id number] [facility] 2020-01-05 00:00:00 2020-01-05 00:00:00 Case Management Keiry [facility] 1.84.114 350.1.13.10 4.2.7.2.686 [id number] [facility] 2020-01-02 11:15:00 2020-01-02 11:15:00 Outpatient EUGENE VEGA [facility] [id number] [facility] 2019-12-14 00:00:00 2019-12-14 00:00:00 Telephone Kindra Griggs [facility] 1.2.840.114 350.1.13.10 4.2.7.2.686 [id number] [facility] 2019-12-14 00:00:00 2019-12-14 00:00:00 Telephone Kindra Grgigs [facility] 1.2.840.114 350.1.13.10 4.2.7.2.686 [id number] [facility] 2019-12-11 10:00:00 2019-12-11 10:00:00 Outpatient R [facility] [id number] [facility] 2019-12-11 00:00:00 2019-12-11 00:00:00 Telephone Kindra Griggs [facility] 1.2.840.114 350.1.13.10 4.2.7.2.686 [id number] [facility] 2019-12-07 00:00:00 2019-12-07 00:00:00 Telephone Kindra Griggs [facility] 1.2.840.114 350.1.13.10 4.2.7.2.686 [id number] [facility] 2019-12-04 09:30:00 2019-12-04 09:30:00 Outpatient R KINDRA GRIGGS [facility] [id number] [facility] Results Test Description Test Time Test Comments Results Result Co mments Source [facility] [id number] 12:26:30* Test Item Value Reference Range Interpretation Comme nts GLU FASTNG (test code = 3605031475) 93 mg/dL 70-110 Lab Interpretation (test cod e = 13643-0) Normal [facility] GLUCOSE (AUTOMATED)2023-05-25 11:27:27* Test Item Value Reference Range Interpretation Comme nts POCT GLU (test code = 4607617634) 87 mg/dL 70-110 Lab Interpretation (test cod e = 01268-3) Normal [facility] GLUCOSE (AUTOMATED)2023-05-25 11:27:27* Test Item Value Reference Range Interpretation Comme nts POCT GLU (test code = 4840119237) 87 mg/dL 70-110 Lab Interpretation (test cod e = 44476-4) Normal [facility] URINALYSIS W/O SPECIFIC [id number] 14:06:00* Test Item Value Reference Range Interpretation [...] = 3257) N/A Negative - Negati ve [facility] URINALYSIS W/O SPECIFIC [id number] 14:14:00* Test Item Value Reference Range Interpretation [...] = 3257) n/a Negative - Negati ve [facility] URINALYSIS W/O SPECIFIC [id number] 14:59:00* Test Item Value Reference Range Interpretation [...] = 3257) n/a Negative - Negati ve [facility] URINALYSIS W/O SPECIFIC [id number] 14:59:00* Test Item Value Reference Range Interpretation [...] = 3257) n/a Negative - Negati ve [facility] URINALYSIS W/O SPECIFIC [id number] 14:59:00* Test Item Value Reference Range Interpretation [...] = 3257) n/a Negative - Negati ve [facility] URINALYSIS W/O SPECIFIC [id number] 16:12:00* Test Item Value Reference Range Interpretation [...] = 3257) N/A Negative - Negati ve [facility] URINALYSIS W/O SPECIFIC [id number] 15:04:00* Test Item Value Reference Range Interpretation [...] = 3257) n/a Negative - Negati ve [facility] URINALYSIS W/O SPECIFIC [id number] 15:30:00* Test Item Value Reference Range Interpretation [...] = 3257) n/a Negative - Negati ve [facility] URINALYSIS W/O SPECIFIC [id number] 20:00:00* Test Item Value Reference Range Interpretation [...] = 3257) n/a Negative - Negati ve [facility] URINALYSIS W/O SPECIFIC [id number] 20:00:00* Test Item Value Reference Range Interpretation [...] = 3257) n/a Negative - Negati ve [facility] URINALYSIS W/O SPECIFIC [id number] 20:00:00* Test Item Value Reference Range Interpretation [...] = 3257) n/a Negative - Negati ve [facility] URINALYSIS W/O SPECIFIC [id number] 20:00:00* Test Item Value Reference Range Interpretation [...] = 3257) n/a Negative - Negati ve [facility] URINALYSIS W/O SPECIFIC [id number] 21:00:00* Test Item Value Reference Range Interpretation [...] = 3257) n/a Negative - Negati ve [facility] URINALYSIS W/O SPECIFIC [id number] 21:00:00* Test Item Value Reference Range Interpretation [...] = 3257) n/a Negative - Negati ve [facility] URINALYSIS W/O SPECIFIC [id number] 18:14:00* Test Item Value Reference Range Interpretation [...] = 3257) n/a Negative - Negati ve [facility] URINALYSIS W/O SPECIFIC [id number] 21:07:00* Test Item Value Reference Range Interpretation [...] = 3257) n/a Negative - Negati ve [facility] URINALYSIS W/O SPECIFIC [id number] 15:09:00* Test Item Value Reference Range Interpretation [...] = 3257) N/A Negative - Negati ve [facility] URINALYSIS W/O SPECIFIC [id number] 16:22:00* Test Item Value Reference Range Interpretation [...] = 3257) N/A Negative - Negati ve [facility] URINALYSIS W/O SPECIFIC [id number] 16:22:00* Test Item Value Reference Range Interpretation [...] = 3257) N/A Negative - Negati ve [facility] URINALYSIS W/O SPECIFIC [id number] 19:16:00* Test Item Value Reference Range Interpretation [...] = 3257) N/A Negative - Negati ve [facility] [id number] 19:16:00* Test Item Value Reference Range Interpretation Comme nts POCT PREG (test code = 1605) Positive On board controls acceptable with C Line (test code = 3574) Yes POCT PREG LOT # (test code = 3575) POCT PREG TEST DATE ( test code = 3576) [facility] [id number] 17:20:00* Test Item Value Reference Range Interpretation Comme nts POCT PREG (test code = 1605) Negative On board controls acceptable with C Line (test code = 3574) Yes POCT PREG LOT # (test code = 3575) POCT PREG TEST DATE ( test code = 3576) Lab Interpretation (test cod e = 60669-0) Normal [facility] with [id number] 10:06:00* Test Item Value Reference Range Interpretation [...] 34.4 g/dL 31.6-35.1 RDW-SD (test code = 79966-2) 40.2 fL 39-49.9 RDW-CV (test code = 788-0) 12.6 % 12-15.5 PLT (test code = 777-3) See_Comment [Automated messa ge] The system which generated this result transmitted reference range: 166 - 358 10*3/?L. The reference range was not used to interpret this result as normal/abnormal. MPV (test code = 72416-8) 10.4 fL 9.5-12.9 NRBC/100 WBC (test code = 2272418058) See_Comment [Automated me ssage] The system which generated this result transmitted reference range: 0.0 - 10.0 /100 WBCs. The reference range was not used to interpret this result as normal/abnormal. NRBC x10^3 (test code = 7612310199) <0.01 See_Comment [Automated messa ge] The system which generated this result transmitted reference range: 10*3/?L. The reference range was not used to interpret this result as normal/abnormal. GRAN MAT (NEUT) % (test code = 770-8) 67.7 % IMM GRAN % (test code = 1403920400) 0.20 % LYMPH % (test code = 736-9) 26.2 % MONO % (test code = 5905-5) 4.6 % EOS % (test code = 713-8) 1.1 % BASO % (test code = 706-2) 0.2 % GRAN MAT x10^3(ANC) (test code = 5757357110) 5.41 10*3/uL 1.88-7.09 IMM GRAN x10^3 (test code = 0637672698) <0.03 0-0.06 LYMPH x10^3 (test code = 731-0) 2.10 10*3/uL 1.32-3.29 MONO x10^3 (test code = 742-7) 0.37 10*3/uL 0.33-0.92 EOS x10^3 (test code = 711-2) 0.09 10*3/uL 0.03-0.39 BASO x10^3 (test code = 704-7) <0.03 0.01-0.07 Lab Interpretation (test code = 57664-6) Abnormal [facility] ONLY - [id number] 06:12:00* Test Item Value Reference Range Interpretation Comme nts RPR (Qualitative) (test code = 82186-3) Nonreactive Nonreactive Lab Interpretation (test cod e = 18652-9) Normal [facility] (D) IMMUNE [id number] 17:33:53* Test Item Value Reference Range Interpretation Comme nts RHIG CANDIDATE? (test code = 5055) No- see comment Patient is not a candidate for RhIg- Patient is Rh Positive.Performed at [facility] Laboratory Services - [facility] Blood [address] [place] [id number] Free: [phone] No. [id number] [facility] CenterHEPATITIS B SURFACE [id number] 15:45:00 * Test Item Value Reference Range Interpretation Comme nts HBsAg Semi-Quantitative (olayinka t code = 5195-3) Negative Negative [facility] CenterHIV 1/2 AG-AB WITH [id number] 14:03:00* Test Item Value Reference Range Interpretation Comme nts HIV Semi-quantitative (test code = 38528-0) Negative Negative JUAN FRANCISCO (test code = JUAN FRANCISCO) Non-reactive for HIV-1 antigen and HIV-1/HIV-2 antibodies. ?No laboratory evidence of HIV infection. ?Repeat in 2-4 weeks if acute HIV infection is suspected. [facility] CenterVenous Cord [id number] 13:53:00* Test Item Value Reference Range Interpretation Comme nts VENOUS BASE EXCESS, CORD (test code = 7026630784) mEq/L VENOUS PH, CORD (test code = 5281416536) 7.25-7.45 VENOUS PC02, CORD (test code = 9687426240) See_Comment [Automated messa ge] The system which generated this result transmitted reference range: 27 - 49 mmHg. The reference range was not used to interpret this result as normal/abnormal. VENOUS PO2, CORD (test code = 7518393024) See_Comment [Automated me ssage] The system which generated this result transmitted reference range: 17 - 41 mmHg. The reference range was not used to interpret this result as normal/abnormal. VENOUS BICARBONATE, CORD (test code = 7349346643) See_Comment [Automated messa ge] The system which generated this result transmitted reference range: 12 - 29 mEq/L. The reference range was not used to interpret this result as normal/abnormal. [facility] BranchAr[facility]ial Cord [id number] 13:50:00* Test Item Value Reference Range Interpretation Comme nts BASE EXCESS, CORD (test code = 1659412440) mEq/L AC PH, CORD (BEAKER) (test code = 8657465849) 7.18-7.38 PC02, CORD (test code = 6727131570) See_Comment [Automated messa ge] The system which generated this result transmitted reference range: 32 - 66 mmHg. The reference range was not used to interpret this result as normal/abnormal. PO2, CORD (test code = 1704338525) See_Comment [Automated messa ge] The system which generated this result transmitted reference range: 10 - 30 mmHg. The reference range was not used to interpret this result as normal/abnormal. BICARBONATE, CORD (test code = 5082031904) See_Comment [Automated messa ge] The system which generated this result transmitted reference range: 17 - 27 mEq/L. The reference range was not used to interpret this result as normal/abnormal. [facility] CenterType and Screen - ONCE [id number] 13:13:48* Test Item Value Reference Range Interpretation Comme nts ABO & RH (test code = 20) A Positive Performed at [facility] Laboratory [facility] Blood [address] [place] [address] Free: [phone] No. [id number] IAT (test code = 1185) Negative Performed at [facility] Blood [address] Free: [phone] No. [id number] [facility] CenterCBC WITH [id number] 12:08:00* Test Item Value Reference Range Interpretation [...] 33.3 g/dL 31.6-35.1 RDW-SD (test code = 17502-8) 39.5 fL 39-49.9 RDW-CV (test code = 788-0) 12.6 % 12-15.5 PLT (test code = 777-3) See_Comment [Automated messa ge] The system which generated this result transmitted reference range: 166 - 358 10*3/?L. The reference range was not used to interpret this result as normal/abnormal. MPV (test code = 22247-5) 10.2 fL 9.5-12.9 NRBC/100 WBC (test code = 2686015930) See_Comment [Automated Fashionspace ssage] The system which generated this result transmitted reference range: 0.0 - 10.0 /100 WBCs. The reference range was not used to interpret this result as normal/abnormal. NRBC x10^3 (test code = 9039375861) <0.01 See_Comment [Automated messa ge] The system which generated this result transmitted reference range: 10*3/?L. The reference range was not used to interpret this result as normal/abnormal. GRAN MAT (NEUT) % (test code = 770-8) 61.3 % IMM GRAN % (test code = 1912093953) 0.30 % LYMPH % (test code = 736-9) 31.8 % MONO % (test code = 5905-5) 3.6 % EOS % (test code = 713-8) 2.4 % BASO % (test code = 706-2) 0.6 % GRAN MAT x10^3(ANC) (test code = 6880571292) 4.04 10*3/uL 1.88-7.09 IMM GRAN x10^3 (test code = 7534479625) <0.03 0-0.06 LYMPH x10^3 (test code = 731-0) 2.10 10*3/uL 1.32-3.29 MONO x10^3 (test code = 742-7) 0.24 10*3/uL 0.33-0.92 L EOS x10^3 (test code = 711-2) 0.16 10*3/uL 0.03-0.39 BASO x10^3 (test code = 704-7) 0.04 10*3/uL 0.01-0.07 Lab Interpretation (test code = 85832-0) Abnormal [facility] URINALYSIS W/O SPECIFIC [id number] 21:31:00* Test Item Value Reference Range Interpretation [...] = 3257) N/A Negative - Negati ve [facility] URINALYSIS W/O SPECIFIC [id number] 21:31:00* Test Item Value Reference Range Interpretation [...] = 3257) N/A Negative - Negati ve [facility] URINALYSIS W/O SPECIFIC [id number] 21:31:00* Test Item Value Reference Range Interpretation [...] = 3257) N/A Negative - Negati ve [facility]>14 WEEKS US [id number] 22:27:09Limited USG for presentation: ?Cephalic Kindra Griggs MD ?05/22/2020 ?5:27 [facility]>14 WEEKS US LIMITED 2020-05-22 22:27:09Limited USG for presentation: ?Cephalic Kindra Griggs MD ?05/22/2020 ?5:27 PMO[facility] CenterPOVT URINALYSIS W/O SPECIFIC [id number] 21:32:00* Test Item Value Reference Range Interpretation [...] = 3257) n/a Negative - Negati ve [facility] CenterPOCT URINALYSIS W/O SPECIFIC [id number] 21:32:00* Test Item Value Reference Range Interpretation [...] = 3257) n/a Negative - Negati ve [facility] CenterPOCT URINALYSIS W/O SPECIFIC [id number] 16:10:00* Test Item Value Reference Range Interpretation [...] = 3257) n/a Negative - Negati ve [facility] CenterPOVT URINALYSIS W/O SPECIFIC [id number] 19:32:00* Test Item Value Reference Range Interpretation [...] ve Lab Interpretation (test cod e = 56736-7) Normal [facility] CenterGlucose 1 Hour Post [id number] 18:01:00* Test Item Value Reference Range Interpretation Comme nts GLUC 1 HR (test code = 8835754579) 109 mg/dL 120-170 L Lab Interpretation (test cod e = 02183-6) Abnormal [facility] CenterCB with [id number] 17:48:00* Test Item Value Reference Range Interpretation [...] 33.7 g/dL 31.6-35.1 RDW-SD (test code = 53995-0) 41.6 fL 39-49.9 RDW-CV (test code = 788-0) 12.3 % 12-15.5 PLT (test code = 777-3) See_Comment [Automated Petflowa ge] The system which generated this result transmitted reference range: 166 - 358 10*3/?L. The reference range was not used to interpret this result as normal/abnormal. MPV (test code = 59497-2) 9.6 fL 9.5-12.9 NRBC/100 WBC (test code = 6398722072) See_Comment [Automated Fashionspace ssage] The system which generated this result transmitted reference range: 0.0 - 10.0 /100 WBCs. The reference range was not used to interpret this result as normal/abnormal. NRBC x10^3 (test code = 2913988132) <0.01 See_Comment [Automated Petflowa ge] The system which generated this result transmitted reference range: 10*3/?L. The reference range was not used to interpret this result as normal/abnormal. GRAN MAT (NEUT) % (test code = 770-8) 74.3 % IMM GRAN % (test code = 0423934127) 0.40 % LYMPH % (test code = 736-9) 19.4 % MONO % (test code = 5905-5) 3.7 % EOS % (test code = 713-8) 1.8 % BASO % (test code = 706-2) 0.4 % GRAN MAT x10^3(ANC) (test code = 4454682209) 5.87 10*3/uL 1.88-7.09 IMM GRAN x10^3 (test code = 3981462649) 0.03 10*3/uL 0-0.06 LYMPH x10^3 (test code = 731-0) 1.53 10*3/uL 1.32-3.29 MONO x10^3 (test code = 742-7) 0.29 10*3/uL 0.33-0.92 L EOS x10^3 (test code = 711-2) 0.14 10*3/uL 0.03-0.39 BASO x10^3 (test code = 704-7) 0.03 10*3/uL 0.01-0.07 Lab Interpretation (test code = 48986-8) Abnormal [facility]PO[facility] URIN[facility]IS W/O SPECIFIC [id number] 14:15:00* Test Item Value Reference Range Interpretation [...] = 3257) n/a Negative - Negati ve [facility] Notes Date/Time Note Provider Source 2023-10-11 11:15:00 Images from the original note were not included. Venipuncture collection performed by clean technique on the left anticubitus. Total of 1 attempts were made. Slight pressure and a bandage/dressing were applied to the site(s). The patient experienced no complications. The following specimens were processed according to instructions and sent to [facility] laboratories per lab order on 10/11/2023 : LT BLUE SST 1 RED LAV 2 PPT DK GREEN (LiHep) DK GREEN (SodH) SANDOVAL DK BLUE (K2) DK BLUE (S) ACD Blood Culture NIPT/NTD [facility] 2023-07-29 09:14:29 Called pt x2 regarding paperwork. Paperwork was faxed on 07.19.23, but is missing patient signature on second page. 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 Karina Hamlin MA 07/29/2023 9:16 AM [facility] 2023-04-23 16:01:19 Formatting of this n ote might be different from the original. Spoke to pharmacy. Will change Novolin N to Humulin N with same instructions. Pt advised. MARIA DE JESUS BUSH RN 04/23/2023 4:03 PM Maria De Jesus Bush RN [facility] 2023-04-21 10:00:00 Formatting of this n [...] 1 week with NST Dolores Alcazar MD [facility] 2023-04-20 17:04:09 Formatting of this n ote might be different from the original. Spoke with patient, states that Maria De Jesus PAGE called and LM. Forwarding message. Gi Taylor RN 04/20/2023 5:04 PM [facility] [employer] 2023-04-20 16:50:54 Formatting of this n ote might be different from the original. Pt is returning a call to the clinic in regards to her insulin. Aidan Cardona [facility] 2023-04-07 16:15:00 Formatting of this n [...] OB clinic or antepartum unit at the [facility] - POCT URINALYSIS W/O SPECIFIC GRAVITY 3. Previous section complicating ERLTCS at 41 with sterilization 4. Insulin controlled gestational diabetes mellitus (GDM) in third trimester - BS reviewed. FSBS 13/13 2hr post BF 08/19, 2hr post lunch [...] for visit and NST Dolores Alcazar MD [facility] [employer] 2023-04-07 12:00:53 Formatting of this n ote might be different from the original. Patient dropped of a dental clearance form that needs to be filled out and faxed back to [facility]. Form filled out, signed by Dr. Alcazar, and faxed to [facility]. Voicemail left for patient informing her of message. Will scan and upload a copy to [employer]. [facility] 2023-03-24 14:45:00 Formatting of this n [...] OB clinic or antepartum unit at the [facility] 3. Previous section complicating ERLTCS with bilateral [...] 2 weeks or PRN Dolores Alcazar MD [facility] 2023-03-24 14:45:00 Addended by: AYDEE MCKEON on: 03/24/2023 03:53 PM Modules accepted: Orders [facility] 2023-03-24 14:45:00 Addended by: AYDEE MCKEON on: 03/24/2023 03:57 PM Modules accepted: Orders [facility] 2023-03-22 08:00:00 Formatting of this n ote is different from the original. Images from the original note were not included. Venipuncture collection performed by clean technique on the left anticubitus. Total of 4 attempts were made. Slight pressure and a bandage/dressing were applied to the site(s). The patient experienced no complications. The following specimens were processed according to instructions and sent to [facility] laboratories per lab order on 03/22/2023 : Given 100gm glucola. LT BLUE SST 4 RED LAV PPT DK GREEN (LiHep) DK GREEN (SodH) SANDOVAL DK BLUE (K2) DK BLUE (S) ACD Blood Culture NIPT/NTD [facility] 2023-03-10 16:00:00 Formatting of this n [...] 2 weeks or PRN Dolores Alcazar MD [facility] 2023-03-09 09:00:00 Formatting of this n ote might be different from the original. Per PT she fasting for labs. Loaded PT with 50mg of Fruit punch Glucola start 929 finished 930. Marina Campos [facility] 2023-03-09 09:00:00 Formatting of this n ote might be different from the original. Lab orders Verified By Demetrius Morfin 03/09/2023 9:33 AM [facility] 2023-03-09 09:00:00 Formatting of this n ote is different from the original. Images from the original note were not included. Venipuncture collection performed by clean technique on the left anticubitus. Total of 1 attempts were made. Slight pressure and a bandage/dressing were applied to the site(s). The patient experienced no complications. The following specimens were processed according to instructions and sent to [facility] laboratories per lab order on 03/09/2023 LT BLUE SST 2 RED 1 LAV 2 PPT DK GREEN (LiHep) DK GREEN (SodH) SANDOVAL DK BLUE (K2) DK BLUE (S) ACD Blood Culture NIPT/NTD [facility]
[2024-06-28] MEDS ORDERED: ONDANSETRON 4 MG/2 ML VIAL ONE (22:10)
[2024-06-28] MEDS ORDERED: FAMOTIDINE 20 MG/2 ML VIAL IV ONE (22:10)
[2024-06-28] MEDS ORDERED: NA CHLORIDE 0.9% 1,000 ML ONE ×2 (22:10→23:53)
[2024-06-28] MEDS ORDERED: KETOROLAC 30 MG/ML INJ ONE (22:10)
[2024-06-28 22:23] LABS: Specific Gravity > 1.030 (1.005-1.030)
[2024-06-28 22:26] LABS: Absolute Basophils 0.1 K/uL (0-0.5); Absolute Eosinophils 0.3 K/uL (0-0.5); Absolute Lymphocytes (CBC) 1.4 K/uL (0.7-4.9); Absolute Monocytes 0.6 K/uL (0.1-1.3); Absolute Neutrophil 14.8 K/uL (1.8-8.0); Basophils % 0.7 % (0-1.3); Eosinophils % 1.7 % (0-4.4); Hematocrit 44.2 % (36.0-45.0); Hemoglobin 14.8 g/dL (12.0-15.0); MCH 32.9 pg (27.0-35.0); MCHC 33.6 g/dL (32.0-36.0); MPV 7.2 fL (7.6-11.3); Monocytes % 3.4 % (3.3-12.3); Neutrophils % 86.2 % (41.7-73.7); Platelets 234 thou/uL (152-406); RBC Red Blood Cell Count 4.51 M/uL (3.86-4.86); Red Cell Distribution Width 13.9 % (12.1-15.2)
[2024-06-28 22:26] LABS: Specific Gravity > 1.030 (1.005-1.030); Urine Bacteria None Seen /HPF (<20); Urine Bilirubin 2+ (Negative); Urine Blood 1+ (Negative); Urine Clarity Extremely Turbid (Clear); Urine Color Dark-Yellow (Yellow); Urine Crystals Unidentified Few /HPF (None Seen); Urine Culture Reflex Order REFLEXED; Urine Glucose NEGATIVE (Negative); Urine Ketones TRACE (Negative); Urine Microscopic Reflex YN ORDER UMIC; Urine Mucus 4+ /HPF (None Seen); Urine Nitrite NEGATIVE (Negative); Urine Protein 2+ (Negative); Urine RBC 21-50 /HPF (None Seen); Urine Urobilinogen 4+ (Over) (Normal); Urine WBC Clump Occasional /HPF (None Seen)
[2024-06-28 22:44] LABS: Albumin 3.2 g/dL (3.4-5.0); Albumin/Globulin Ratio 0.5 (1.1-1.8); Anion Gap 13.8 mEq/L (5.0-15.0); Bilirubin Total 1.5 mg/dL (0.2-1.0); Globulin 6.3 g/dL (2.3-3.5); Potassium 3.8 mEq/L (3.5-5.1); Protein, Total 9.5 g/dL (6.4-8.2)
[2024-06-28 23:26] LABS: Band Neutrophils 18 % (0-1); Blood Morphology Comment NOT SEEN (NOT SEEN); Differential Total Cells Count 100; Lymphocytes 12 % (15-42); Monocytes 4 % (0-10); Platelet Estimate ADEQ; Reactive Lymphocytes 2 %; Segmented Neutrophils 63 % (40-80)
[2024-06-28] MEDS ORDERED: NA CHLORIDE 0.9% 100 ML ONE (23:53)
[2024-06-28] MEDS ORDERED: PIPERACIL/TAZO 3.375 GM VIAL IV ONE (23:53)
--- NOTE | 2024-06-29 00:19 | RAD REPORT ---
EXAM DESCRIPTION: CT ABDOMEN PELVIS WITH IV CONTRAST CLINICAL HISTORY: Right upper abdomen pain. COMPARISON: CT Abdomen pelvis with IV contrast 06/20/2024 TECHNIQUE: Contiguous axial images of the abdomen and pelvis were obtained after the administration of intraveno us contrast followed by reconstruction images.This exam was performed according to our departmental dose-optimization program, which includes automated exposure control, adjustment of the mA and/or kV according to patient size and/or use of iterative reconstruction technique. FINDINGS: There is a small amount of free fluid in the abdomen and pelvis. There is a left adnexal cyst measuri ng approximately 3.3 cm. No further follow-up of this cyst recommended. Patient is status post cholecystectomy. The liver, spleen, pancreas and kidneys are within normal limits. There is no hydronephrosis or renal stones. Adrenal glands are within normal limits. Aorta is of normal caliber and tapering. There is no stranding of the mesenteric fat to suggest an inflammatory response. There is no bowel obstruction . The appendix is within normal limits. There is no pericecal inflammation. IMPRESSION: Status post cholecystectomy. Free fluid in the abdomen and pelvis worrisome for a bile leak. Correlat ion with a HIDA scan is recommended for further evaluation. Electronically signed by: Yonatan Hamlin MD 06/29/2024 12:14 AM [facility] Due to temporary technical issues with the [employer] reporting system, reports are being gabriela d by the in-house radiologist without review as a courtesy to ensure prompt reporting the interpreting radiologist is fully responsible for the content of the report. Transcribed Date/Time: 06/29/2024 12:19 AM
--- NOTE | 2024-06-29 01:28 | EDPHYS ---
Physician Documentation [facility] Name: Cecelia Polk Age: 33 yrs Sex: Female : 1990 Arrival Date: 06/28/2024 Time: 21:39 Bed X-Ray Private MD: ED Physician Sudeep Owens HPI: 06/28 22:10 This 33 yrs old [place] Female presents to ER via Ambulatory with complaints of Post cp Surgical Pain, INCISION SITE DISCOLORATION AND PAIN, Abdominal Swelling. 22:10 The patient presents with abdominal pain in the right upper quadrant. cp 22:10 Onset: The symptoms/episode began/occurred today. The symptoms radiate to right back. cp Associated signs and symptoms: Pertinent positives: nausea, Pertinent negatives: constipation, diarrhea, dysuria, fever, headache, hematuria, shortness of breath, vomiting. The symptoms are described as constant. 22:10 Modifying factors: the symptoms are aggravated by pressure. Severity of pain: in the emergency department the pain is unchanged despite home interventions. Patient reports having cholecystectomy performed by DR Doir last week on Wednesday without complications. Patient reports she was doing well and did not have to take any pain medications for past 2 days. 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 - Infectious Disease History:: Denies. - Social history:: Smoking status: Patient denies any tobacco usage or history of. ROS: 22:15 Constitutional: Negative for body aches, chills, fever, cp 22:15 Eyes: Negative for injury, pain, redness, and discharge, cp 22:15 ENT: Negative for drainage from ear(s), ear pain, sore throat, difficulty swallowing, difficulty handling secretions, 22:15 Cardiovascular: Negative for chest pain, palpitations, 22:15 Respiratory: Negative for cough, shortness of breath, wheezing, 22:15 Abdomen/GI: Positive for abdominal pain, nausea, of the right upper quadrant, Negative for vomiting, diarrhea, constipation, 22:15 : Negative for urinary symptoms, vaginal bleeding, cp 22:15 Neuro: Negative for altered mental status, headache, weakness, 22:15 All other systems are negative, cp Exam: 22:20 Constitutional: The patient appears in no acute distress, alert, awake, cp non-diaphoretic, non-toxic, well developed, well nourished, uncomfortable, overweight 22:20 Head/Face: Normocephalic, atraumatic. cp 22:20 Eyes: Periorbital structures: appear normal, Conjunctiva: normal, no exudate, no injection, Sclera: no appreciated abnormality, Lids and lashes: appear normal, bilaterally, 22:20 ENT: External ear(s): are unremarkable, Nose: is normal, Mouth: Lips: moist, Oral mucosa: pink and intact, moist, Posterior pharynx: Airway: no evidence of obstruction, patent, 22:20 Chest/axilla: Inspection: normal, 22:20 Cardiovascular: Rate: tachycardic, Rhythm: regular, 22:20 Respiratory: the patient does not display signs of respiratory distress, Respirations: normal, no use of accessory muscles, no retractions, labored breathing, is not present, Breath sounds: are clear throughout, no decreased breath sounds, no stridor, no wheezing, 22:20 Abdomen/GI: Inspection: bruising, Bowel sounds: active, all quadrants, Palpation: soft, in all quadrants, moderate abdominal tenderness, in the right upper quadrant, rebound tenderness, is not appreciated, voluntary guarding, is elicited in the right upper quadrant, 22:20 Back: pain, that is moderate, of the mid back area, 22:20 Skin: abdominal incisions appear to be healing well with no erythema and/or drainage expressed. 22:20 Neuro: Orientation: to person, place \T\ time. Mentation: is normal, Motor: moves all fours, strength is normal, Sensation: is normal, Vital Signs: 21:49 BP 148 / 120; Pulse 118; Resp 18; Temp 98; Pulse Ox 100% on R/A; Weight 92.08 kg; al5 Height 5 ft. 6 in. ; Pain 6/10; 22:30 BP 139 / 101; Pulse 97; Resp 20; Pulse Ox 100% ; me1 23:00 BP 160 / 102; Pulse 99; Resp 18; Pulse Ox 100% ; me1 06/29 00:15 BP 137 / 103; Pulse 97; Resp 16; Pulse Ox 100% on R/A; jb4 06/28 21:49 Body Mass Index 32.76 (92.08 kg, 167.64 cm) al5 06/28 21:49 Pain Scale: Adult al5 MDM: 06/28 21:57 Medical Screening Exam initiated cp 23:00 Differential diagnosis: gastritis, pancreatitis, Peptic Ulcer Disease, Perf. Duodenal cp Ulcer, Perf. Gastric Ulcer, Peritonitis, Ureterolithiasis, urinary tract infection, choledocholithiasis, bile leak. 06/29 01:00 Management of patient was discussed with the following: Pitting Machine Operator: DR Barby watson cp consult and requests admission to hospitalist service and HIDA scan procedure later this morning. 01:04 Data reviewed: vital signs, nurses notes, lab test result(s), radiologic studies, CT cp scan. I considered the following discharge prescriptions or medication management in the emergency department Medications were administered in the Emergency Department. See MAR. Counseling: I had a detailed discussion with the patient and/or guardian regarding the historical points, exam findings, and any diagnostic results supporting the discharge/admit diagnosis, lab results, radiology results, the need for further work-up and treatment in the hospital. Response to treatment: the patient's symptoms have mildly improved after treatment. 01:18 Management of patient was discussed with the following: Pitting Machine Operator: message left on cp voicemail of DR Benjamin. 01:19 Management of patient was discussed with the following: Hospitalist: DR Ta watson cp admit to service after discussion. 01:30 Post IV fluid administration reassessment for Sepsis: Client not prescribed the 30 cp mL/kg IVF due to: normal lactate. 2 liters NS given Sepsis focused reassessment complete. Heart: Regular rate/rhythm noted. Lungs: Noted to be clear bilaterally. Current vital signs reviewed: Yes. 06/28 22:03 Order name: CBC with Diff; Complete Time: 00:21 cp 06/29 00:21 Interpretation: Normal except: WBC 17.10; MPV 7.2; DENNYS% 86.2; LYM% 8.0; NEUT A 14.8. cp 06/28 22:03 Order name: CMP; Complete Time: 23:01 cp 06/29 00:24 Interpretation: Normal except: NA 129; CL 96; GLUC 136; CRE 1.17; GFR 64; AST 66; BILIT cp 1.5; TP 9.5; ALB 3.2; GLOB 6.3; A/G 0.5; ALK 254. 06/28 22:03 Order name: Lipase; Complete Time: 23:01 06/29 00:55 Interpretation: Reviewed. 06/28 22:03 Order name: Test, Urine; Complete Time: 23:01 06/28 22:03 Order name: Urinalysis w/ reflexes; Complete Time: 23:01 06/29 00:56 Interpretation: Normal except: UCLA Extremely Turbid; Urine SG > 1.030; UBILI 2+; UKET cp TRACE; UBLD 1+; UPROT 2+; UUROB 4+ (Over); UWBC 10-20; URBC 21-50; MUCUS 4+; HYAL >20; UWBC Clump Occasional. 06/28 22:29 Order name: Urine Culture EDOK 06/28 22:42 Order name: Manual Differential; Complete Time: 00:21 EDOK 06/29 00:21 Interpretation: Normal except: BANDS [F] 18; LYM 12. 06/28 23:03 Order name: Lactate w/ 2H reflex if indic.; Complete Time: 00:21 06/29 01:03 Interpretation: Reviewed. 06/28 23:03 Order name: Blood Culture Adult (2) 06/29 01:36 Order name: Urinalysis w/ reflexes EDOK 06/29 01:36 Order name: CBC with Automated Diff EDOK 06/29 01:36 Order name: CBC with Automated Diff EDOK 06/29 01:36 Order name: Comprehensive Metabolic Panel EDOK 06/29 01:36 Order name: Comprehensive Metabolic Panel EDOK 06/28 23:02 Order name: CT Abd/Pelvis - IV Contrast Only; Complete Time: 00:21 06/29 01:40 Order name: Hepatobiliary System W/ Ph EDOK 06/29 13:21 Order name: NM; Complete Time: 14:04 EDOK 06/29 13:56 Order name: MRI; Complete Time: 14:04 EDOK 06/29 01:36 Order name: CONS Physician Consult EDOK 06/28 22:03 Order name: IV Saline Lock; Complete Time: 22:28 06/28 22:03 Order name: Labs collected and sent; Complete Time: 22:28 cp Administered Medications: 11/20 22:27 Drug: Famotidine IVP 20 mg IVP once; dilute with 10 mL 0.9% NaCl; give over 2 minutes me1 Route: IVP; Site: left antecubital; 23:51 Follow up: Response: No adverse reaction me1 22:27 Drug: TORadol - Ketorolac IVP 15 mg IVP once Route: IVP; Site: left antecubital; me1 23:51 Follow up: Response: No adverse reaction; Pain is decreased me1 22:27 Drug: Ondansetron IVP 4 mg IVP once; over 2 minutes Route: IVP; Site: left antecubital; me1 23:51 Follow up: Response: Nausea is decreased me1 22:27 Drug: NS 0.9% IV 1000 ml IV at 1 bolus Per protocol; to be given as a bolus over 60 me1 minutes Route: IV; Rate: 1 bolus; Site: left antecubital; 06/29 00:16 Drug: NS 0.9% IV 1000 ml IV at 1000 ml once; to be given as a bolus over 60 minutes jb4 Route: IV; Rate: 1000 ml; Site: right antecubital; 00:17 Drug: Piperacillin-Tazobactam IVPB 3.375 grams IVPB once over 60 mins; (mix in NS 100 jb4 mL) Route: IVPB; Infused Over: 60 mins; Site: right antecubital; 01:57 Drug: HYDROmorphone IVP 1 mg IVP once Route: IVP; Site: right antecubital; jb4 01:57 Drug: Ondansetron IVP 4 mg IVP once; over 2 minutes Route: IVP; Site: right antecubital;jb4 Disposition: 07:31 Co-signature as Attending Physician, Sudeep Owens MD I agree with the assessment sp4 and plan of care. I reviewed the patient's care provided by the Advanced Practice Provider and agree with the diagnosis and treatment plan. Disposition Summary: 06/29/24 01:28 Hospitalization Ordered Notes: Hospitalization Status: Inpatient Admission cp Provider: Jered Chappell cp Condition: Stable cp Problem: new cp Symptoms: have improved cp Bed/Room Type: Standard cp Location: Telemetry/MedSurg (Inpatient)(06/29/24 13:20) em1 Room Assignment: 222(11/21/24 13:20) em1 Diagnosis - Nausea cp - Upper abdominal pain, unspecified cp - Abnormal results of liver function studies cp - Abnormal findings on diagnostic imaging of liver and biliary tract cp - Sepsis, unspecified organism cp Discharge Instructions: - Discharge Summary Sheet jb4 Forms: - Medication Reconciliation Form cp - Leadership Thank You Letter cp - SBAR form jb4 Critical care time excluding procedures: 14:09 Critical care time: Bedside Care: 7 minutes, Consultation: 25 minutes. Total time: 32 cp minutes Signatures: Dispatcher [employer] EDOK Dilan Fernandez em1 Heath Malone PA PA cp Piero Villar, RN RN jb4 Rocio Pressley RN RN lg3 Sudeep Owens MD MD sp4 Halle Reddy RN RN me1 Flower Christianson RN RN al5 Corrections: (The following items were deleted from the chart) 02:08 01:28 Telemetry/MedSurg (Inpatient) cp lg3 02:08 01:28 cp lg3 13:20 02:08 [facility] ER HOLD lg3 em1 13:20 02:08 ERHOLD- lg3 em1
--- NOTE | 2024-06-29 01:28 | ER ---
Nurse's Notes [facility] Name: Cecelia Polk Age: 33 yrs Sex: Female : 1990 Arrival Date: 06/28/2024 Time: 21:39 Bed X-Ray Private MD: Diagnosis: Nausea;Upper abdominal pain, unspecified;Abnormal results of liver function studies;Abnormal findings on diagnostic imaging of liver and biliary tract;Sepsis, unspecified organism Presentation: 06/28 21:49 Chief complaint: Patient states: c/o R sided rib pain that radiates to the epigastric al5 area along with nausea starting today. patient states she took the zofran prescribed to her with no relief. patient recently had cholecystectomy done last Wednesday by Dr. Dior. patient also states she has started to notice some yellowing around the the R side middle of her stomach starting today. Coronavirus screen: At this time, the client does not indicate any symptoms associated with coronavirus-19. Ebola Screen: No symptoms or risks identified at this time. Initial Sepsis Screen: Does the patient meet any 2 criteria? HR > 90 bpm. No. Patient's initial sepsis screen is negative. Does the patient have a suspected source of infection? No. Patient's initial sepsis screen is negative. Risk Assessment: Do you want to hurt yourself or someone else? Patient reports no desire to harm self or others. Onset of symptoms was June 28, 2024. 21:49 Method Of Arrival: Ambulatory al5 21:49 Acuity: CRISTOBAL 3 al5 Triage Assessment: 21:54 General: Appears in no apparent distress. uncomfortable, Behavior is calm, cooperative. al5 Pain: Complains of pain in right upper quadrant Pain radiates to epigastric area Pain currently is 6 out of 10 on a pain scale. EENT: No signs and/or symptoms were reported regarding the EENT system. Neuro: Level of Consciousness is awake, alert, obeys commands, Oriented to person, place, time, situation. Cardiovascular: Capillary refill < 3 seconds Patient's skin is warm and dry. Respiratory: Airway is patent Respiratory effort is even, unlabored, Respiratory pattern is regular, symmetrical. GI: Abdomen is round non-distended, Reports upper abdominal pain, bloating, intolerance of food, nausea, Pain is 6 out of 10 on a pain scale. vomiting. : No signs and/or symptoms were reported regarding the genitourinary system. Derm: Skin is intact, is healthy with good turgor, Skin is pink, warm \T\ dry. normal. Musculoskeletal: No signs and/or symptoms reported regarding the musculoskeletal system. 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 - Infectious Disease History:: Denies. - Social history:: Smoking status: Patient denies any tobacco usage or history of. Screenin:17 [facility] ED Fall Risk Assessment (Adult) History of falling in the last 3 months, me1 including since admission No falls in past 3 months (0 pts) Confusion or Disorientation No (0 pts) Intoxicated or Sedated No (0 pts) Impaired Gait No (0 pts) Mobility Assist Device Used No (0 pt) Altered Elimination No (0 pt) Score/Fall Risk Level 0 - 2 = Low Risk Maintained a safe environment, Provided non-skid footwear, Hourly rounding (assess needs \T\ fall precautionary measures) done. Abuse screen: Denies threats or abuse. Nutritional screening: No deficits noted. Tuberculosis screening: No symptoms or risk factors identified. Assessment: 22:17 General: Appears in no apparent distress. uncomfortable, well groomed, well developed, me1 well nourished, Behavior is calm, cooperative, appropriate for age, Reports Pain that starts in RUQ and radiates to epigastric area 6/10, stabbing. Noticed a yellow area today on mid right abdomen that is tender. Pain: Complains of pain in right upper quadrant Pain radiates to epigastric area Pain currently is 6 out of 10 on a pain scale. Quality of pain is described as sharp, Pain began 2 hours ago. Is continuous. Neuro: Level of Consciousness is awake, alert, obeys commands, Oriented to person, place, time, situation, Appropriate for age. Cardiovascular: Patient's skin is warm and dry. Respiratory: Airway is patent Respiratory effort is even, unlabored, Respiratory pattern is regular, symmetrical. GI: Abdomen is round Bowel sounds present X 4 quads. Abd is soft X 4 quads. : No signs and/or symptoms were reported regarding the genitourinary system. EENT: No signs and/or symptoms were reported regarding the EENT system. Derm: Skin is healthy with good turgor, Skin is pink, warm \T\ dry. Wound noted abdomen Wound is surgical incision sites x 4. Musculoskeletal: No signs and/or symptoms reported regarding the musculoskeletal system. 06/29 00:00 Reassessment: Patient appears in no apparent distress at this time. Patient and/or jb4 family updated on plan of care and expected duration. Pain level reassessed. Patient is alert, oriented x 3, equal unlabored respirations, skin warm/dry/pink. received report from KAYLEE Neri. Vital Signs: 06/28 21:49 BP 148 / 120; Pulse 118; Resp 18; Temp 98; Pulse Ox 100% on R/A; Weight 92.08 kg; al5 Height 5 ft. 6 in. ; Pain 6/10; 22:30 BP 139 / 101; Pulse 97; Resp 20; Pulse Ox 100% ; me1 23:00 BP 160 / 102; Pulse 99; Resp 18; Pulse Ox 100% ; me1 06/29 00:15 BP 137 / 103; Pulse 97; Resp 16; Pulse Ox 100% on R/A; jb4 06/28 21:49 Body Mass Index 32.76 (92.08 kg, 167.64 cm) al5 06/28 21:49 Pain Scale: Adult al5 ED Course: 06/28 21:40 Patient arrived in ED. jj6 21:49 Heath Malone PA is PHCP. cp 21:49 Sudeep Owens MD is Attending Physician. cp 21:54 Triage completed. al5 21:56 Arm band placed on left wrist. Patient placed in waiting room. al5 22:03 Halle Reddy, RN is Primary Nurse. me1 22:17 Patient has correct armband on for positive identification. Bed in low position. Call [facility] light in reach. Side rails up X 1. Provided Education on: POC. Verbalized understanding. . Client placed on continuous cardiac and pulse oximetry monitoring. NIBP monitoring applied. Pulse ox on. NIBP on. 22:17 Test, Urine Sent. me1 22:17 Urinalysis w/ reflexes Sent. me1 22:17 Urine collected: clean catch specimen, tea colored. me1 22:17 No provider procedures requiring assistance completed. me1 22:27 Initial lab(s) drawn, by me, sent to lab. Inserted saline lock: 20 gauge in left me1 antecubital area, using aseptic technique. 23:23 First set of blood cultures drawn Straight needle 23G. ty 23:41 Initial lab(s) drawn, by me, sent to lab. Second set of blood cultures drawn by me. ty 23:47 Blood Culture Adult (2) Sent. ty 23:47 Lactate w/ 2H reflex if indic. Sent. ty 23:48 CT Abd/Pelvis - IV Contrast Only In Process Unspecified. EDMS 06/29 01:27 Jered Chappell MD is Hospitalizing Provider. cp 14:25 Patient admitted, IV remains in place. kc6 Administered Medications: 06/28 22:27 Drug: Famotidine IVP 20 mg IVP once; dilute with 10 mL 0.9% NaCl; give over 2 minutes me1 Route: IVP; Site: left antecubital; 23:51 Follow up: Response: No adverse reaction me1 22:27 Drug: TORadol - Ketorolac IVP 15 mg IVP once Route: IVP; Site: left antecubital; me1 23:51 Follow up: Response: No adverse reaction; Pain is decreased me1 22:27 Drug: Ondansetron IVP 4 mg IVP once; over 2 minutes Route: IVP; Site: left antecubital; me1 23:51 Follow up: Response: Nausea is decreased me1 22:27 Drug: NS 0.9% IV 1000 ml IV at 1 bolus Per protocol; to be given as a bolus over 60 me1 minutes Route: IV; Rate: 1 bolus; Site: left antecubital; 06/29 00:16 Drug: NS 0.9% IV 1000 ml IV at 1000 ml once; to be given as a bolus over 60 minutes jb4 Route: IV; Rate: 1000 ml; Site: right antecubital; 00:17 Drug: Piperacillin-Tazobactam IVPB 3.375 grams IVPB once over 60 mins; (mix in NS 100 jb4 mL) Route: IVPB; Infused Over: 60 mins; Site: right antecubital; 01:57 Drug: HYDROmorphone IVP 1 mg IVP once Route: IVP; Site: right antecubital; jb4 01:57 Drug: Ondansetron IVP 4 mg IVP once; over 2 minutes Route: IVP; Site: right antecubital;jb4 Medication: 06/28 22:17 VIS not applicable for this client. me1 Outcome: 06/29 01:28 Decision to Hospitalize by Provider. cp 14:25 Admitted to Med/surg accompanied by tech, via wheelchair, room 222, with chart, kc6 14:25 Condition: good 14:25 Instructed on the need for admit, 14:25 Patient left the ED. kc6 Signatures: Dispatcher [employer] EDMS Heath Malone PA PA cp Piero Villar, RN RN jb4 Lilian Knox6 Charisse Vela RN RN kc6 Halle Reddy RN RN me1 Leonel Crawley Amanda RN RN al5 Corrections: (The following items were deleted from the chart) 06/28 21:57 21:56 Arm band placed on left wrist. Patient placed in waiting room, on a stretcher, al5al5 22:04 21:49 Chief complaint: Patient states: c/o R sided rib pain that radiates to the me1 epigastric area along with nausea starting today. patient states she took the zofran prescribed to her with no relief. patient recently had cholecystectomy done last Wednesday by Dr. Dior. patient also states she has started to notice some yellowing around the the R side middle of her stomach starting today. al5
[2024-06-29] MEDS ORDERED: ACETAMINOPHEN 325 MG TABLET PO PRN (01:30)
[2024-06-29] MEDS ORDERED: HYDROCODONE/APAP 5/325 MG TAB PO PRN (01:34)
--- NOTE | 2024-06-29 01:39 | P.HP ---
Certification for Inpatient Patient admitted to: Inpatient With expected LOS: >2 Midnights Practitioner: I am a practitioner with admitting privileges, knowledge of patient current condition, hospital course, and medical plan of care. Services: Services provided to patient in accordance with Admission requirements found in Title 42 Section 412.3 of the Code of Federal Regulations Patient History Date of Service: 06/29/24 Reason for admission: Abdominal Pain History of Present Illness: 33 yrs old Female presents to ER with complaints of Post Surgical Pain, and abdominal Swelling.. Patient had a recent cholecystectomy on Wednesday. Tolerated the procedure well. She started having pain 2 days ago and has been progressively getting worse. Located in right upper quadrant and radiating diffusely. Associated with abdominal distention. Also has some nausea but no vomiting. Denies any chest pain or shortness of breath. No fevers or chills. No sick contacts. Patient was assessed in the ER and had a CT of the abdomen pelvis which showed Status post cholecystectomy. Free fluid in the abdomen and pelvis worrisome for a bile leak. Correlation with a HIDA scan is recommended for further evaluation. Patient was admitted for further management and surgical consult Allergies No Known Drug Allergies Allergy (Verified 06/20/24 07:17) Rash Home medications list reviewed: Yes Home Medications: Hydrocodone 7.5/APAP 325 [[place] 7.5/325 mg*] 1 tab PO Q6HP PRN #20 tab 06/21/24 chlordiazePOXIDE HCl [Chlordiazepoxide HCl] 10 mg PO TID #35 cap 06/21/24 Ondansetron [Zofran] 4 mg PO Q6H PRN #20 tab 06/22/24 - Past Medical/Surgical History Past Medical History: Reviewed- Non-Contributory Past Surgical History: Reviewed- Non-Contributory -: - Family History Family History: Reviewed- Non-Contributory - Social History Smoking Status: Never smoker Alcohol use: Yes Caffeine use: Yes Review of Systems 10-point ROS is otherwise unremarkable Physical Examination - Vital Signs Temperature: 98.2 F Blood Pressure: 122/78 Pulse: 76 Respirations: 18 Pulse Ox (%): 94 - Physical Exam General: Alert, Oriented x3, Mild distress HEENT: Atraumatic, Normocephalic Neck: Supple, JVD not distended Respiratory: Clear to auscultation bilaterally, Normal air movement Cardiovascular: Regular rate/rhythm, Normal S1 S2 Capillary refill: <2 Seconds Gastrointestinal: Soft and benign, Distended, Tenderness Musculoskeletal: No clubbing Integumentary: No rashes, No breakdown Neurological: Normal speech, Normal strength at 5/5 x4 extr, Normal reflexes 2+, Normal affect Lymphatics: No axilla or inguinal lymphadenopathy - Studies Laboratory Data (last 24 hrs) 06/28/24 06/28/24 22:19 22:19 WBC 17.10 H Hgb 14.8 Hct 44.2 Plt Count 234 Sodium 129 L Potassium 3.8 BUN 7 Creatinine 1.17 H Glucose 136 H Total Bilirubin 1.5 H AST 66 H ALT 26 Alkaline Phosphatase 254 H Lipase 167 H Assessment and Plan - Plan Postsurgical pain Status post cholecystectomy Elevated LFTs noted Pain control N.p.o. for now CT findings noted 33-year-old female Status post cholecystectomy. Free fluid in the abdomen and pelvis worrisome for a bile leak. Correlation with a HIDA scan is recommended for further evaluation. Will obtain HIDA scan Surgical consult Also consult GI for possible biliary leak UTI Started on IV Antibiotics Hyponatremia Electrolytes monitor and replace accordingly IV hydration Acute kidney injury Monitor renal parameters Electrolytes monitor and replace accordingly GI/DVT prophylaxis Advanced directive full code Discharge Plan: Home Plan to discharge in: 48 Hours - Advance Directives Does patient have a Living Will: No Does patient have a Durable POA for Healthcare: No - Code Status/Comfort Care Code Status: Full Code Time Spent Managing Pts Care (In Minutes): 48
[2024-06-29] MEDS ORDERED: HYDROMORPHONE HCL 1 MG/ML INJ ONE (01:51)
[2024-06-29] MEDS ORDERED: ONDANSETRON 4 MG/2 ML VIAL ONE ×2 (01:51→08:15)
[2024-06-29] MEDS: D5 0.45 NS 1,000 ML IV SCH (02:00)
[2024-06-29] MEDS ORDERED: D5 0.45 NS 1,000 ML IV ONE (04:32)
[2024-06-29 04:44] VITALS: BMI 32.3
[2024-06-29] MEDS: D5 0.9 NS 1,000 ML IV SCH (08:00)
[2024-06-29] MEDS ORDERED: ENOXAPARIN 40 MG/0.4 ML SQ ONE (08:15)
[2024-06-29] MEDS ORDERED: NA CHLORIDE 0.9% 100 ML ONE (08:15)
[2024-06-29] MEDS ORDERED: PIPERACIL/TAZO 3.375 GM VIAL IV ONE (08:15)
[2024-06-29] MEDS ORDERED: MORPHINE 2 MG/ML SYR ONE (08:15)
[2024-06-29] MEDS ORDERED: D5 0.9 NS 1,000 ML IV ONE (08:16)
[2024-06-29] MEDS: ENOXAPARIN 40 MG/0.4 ML SQ SCH (09:00)
[2024-06-29] MEDS: PIPER TAZO 3.375 GM in NA CHLORIDE 0.9% 100 ML IV SCH (09:00)
[2024-06-29] MEDS: MORPHINE 2 MG/ML SYR IV PRN (09:15)
[2024-06-29] MEDS: ONDANSETRON 4 MG/2 ML VIAL IV PRN (09:15)
--- NOTE | 2024-06-29 12:04 | CON ---
Date of Consultation: 06/29/2024 Reason For Consultation: Abdominal pain. History Of Present Illness: The patient is a 33-year-old female who underwent a laparoscopic cholecy stectomy and lysis of adhesions 9 days ago following episode of acute on chronic cholecystitis. [facility] surgery, patient was found to have significant cirrhosis. She was discharged after surgery and wa s supposed to follow up with a liver specialist, which she has not done yet and she started having in creasing pain and swelling in her abdomen associated with nausea and she came to the emergency room. Workup was done. The patient was found to have fluid around the liver and in the pelvis and bile le ak needed to be ruled out. She denies any sore throat, runny nose, cough, headaches, or dizziness. No chest pain. No fevers or chills. Review of Systems: Otherwise, unremarkable. Past Medical History: Cirrhosis, otherwise, negative. Past Surgical History: and recent laparoscopic cholecystectomy. Allergies: NO ALLERGIES. Social History: The patient does not smoke, and does drink alcohol. Family History: Noncontributory. Physical Examination: Vital Signs: Currently are stable. Her blood pressure is borderline and her heart rate is in the 90 s. She is afebrile. General: She is awake, alert, oriented x3. Head and Neck: There is no evidence of icterus. No neck masses. No JVD. Throat clear. Neck suppl e. Chest: Clear. Heart: S1, S2. Abdomen: Soft, slightly distended. Mild tenderness on the right upper quadrant, epigastric region a nd right side of the abdomen. No rigidity or guarding, and no evidence of peritonitis. Extremities: Adequately perfused. Nontender. Neuro: Nonfocal. Laboratory Data: Reviewed. Her white count is 17.1, with a left shift. H and H are 14.8 and 44.2, platelets of 234. Chemistry reviewed. Her sodium is 129. Her creatinine is 1.17. Lactic acid is 1 .3, total bilirubin is 1.5, AST 66, alkaline phosphatase is 254, and lipase is 167. CT of the abdome n and pelvis reviewed shows status post cholecystectomy, free fluid in the abdomen and pelvis, worris ome for a bile leak. Correlation with HIDA scan is recommended. Assessment: 33-year-old female with intraperitoneal fluid following a recent laparoscopic cholecyste ctomy, possible bile leak is present. Recommendations: Admit, NPO, IV fluid, IV antibiotics. We will get a HIDA scan. Based on the resul t, we will proceed accordingly. The patient may need a stent in the biliary tree as well as a draina ge procedure by Interventional Radiology. We will follow this patient while in the hospital. There is no need for any acute surgical intervention, at this time. I will discuss the case with the [place] hospitalist team as soon as the HIDA scan is done. COLTON/ABHI Voice ID: [id number] Report ID: [id number]
--- NOTE | 2024-06-29 13:21 | RAD REPORT ---
EXAMINATION: NUCLEAR MEDICINE HIDA SCAN CLINICAL INDICATION: Female, 33 years old. Abdominal Pain TECHNIQUE: Hepatobiliary imaging was acquired over the abdomen for 60 minutes following intravenous a dministration of radiotracer. RADIOPHARMACEUTICAL: 6.3 mCi Technetium 99m Mebrofenin. COMPARISON: CT dated 06/28/2024 FINDINGS: Normal hepatic uptake and excretion with appropriate clearance of background blood pool activity. Normal visualization of biliary and small bowel activity. No free flow of radiotracer into the abdomen to suggest mild leakage. IMPRESSION: No finding to indicate active bile leak.
--- NOTE | 2024-06-29 13:56 | RAD REPORT ---
EXAMINATION: MR CHOLANGIOGRAM CLINICAL INDICATION: Female, 33 years old. recent benedicto, ruq pain, elevate lft's/wbc TECHNIQUE: Multiplanar, multisequence MR imaging of the abdomen without intravenous contrast, and wit h specific attention to the biliary system. Unless otherwise specified, incidental findings do not require dedicated imaging follow-up. 3D MIP reconstruction performed. COMPARISON: No prior exam. FINDINGS: GALLBLADDER: Surgically absent. BILE DUCTS: No biliary ductal dilatation. LIVER: Normal in size, contour, and signal without evidence of fatty infiltration or iron deposition. No focal lesion. PANCREAS: Normal signal. No mass, ductal dilation, or brandon-pancreatic fluid. LYMPH NODES: No lymphadenopathy. ADDITIONAL FINDINGS: Mild free fluid in the upper abdomen. IMPRESSION: Mild free fluid in the upper abdomen. Postsurgical changes of recent cholecystectomy with no biliary abnormality seen.
[2024-06-29 15:12] VITALS: O2SAT 100
--- NOTE | 2024-06-30 02:49 | CON ---
Date of Consultation: 06/29/2024 Reason For Consultation: Right upper quadrant pain, possible bile leak. History Of Present Illness: This patient is a 33-year-old female with history of cholecystitis, chol elithiasis. Laparoscopic cholecystectomy and . The patient had a laparoscopic cholecystect jalil 9 days ago, started having pain approximately 1 day ago, maximum 8/10, now down to 7/10 in the ho spital, IV fluids, IV antibiotics, and p.r.n. pain medicines, antiemetics. The patient states the pa in reached a level of 8/10, now down to 7/10, associated with nausea, vomiting, bloating. She denies any fevers, chills, jaundice, change in urine color, dysuria, hematuria, significant cough, or other . She has been somewhat decreased in her p.o. intake, however. CT scan of abdomen and pelvis in [facility] room revealed cystectomy changes, small amount of free fluid in the abdomen, and pelvis. HIDA scan revealed no bile leak, tracer was seen in the liver going to the biliary tree into the small nelsy wel as expected. MRCP revealed only mild free fluid in the upper abdomen. The patient has a white c ount of 17.1 with a possible urinary tract infection versus lung disorder versus other. Sodium low a t 129. This could be from lung process or dehydration or other. Past Medical History: Significant for cholelithiasis, cholecystitis. Laparoscopic cholecystectomy, and . Home Medications: None. Allergies: NKDA. Social History: She is , 3 children. No tobacco. Occasional alcohol. Family History: Father is alive with colon cancer, diagnosed in his 50s. Also has diabetes and hype rtension. Mother with hypertension, diabetes, and is alive. Home Medications: Include [place], chlordiazepoxide, and Zofran. Allergies: NKDA. Review of Systems: The patient has right upper quadrant pain with nausea, vomiting, but there are no fevers, chills, nig ht sweats, jaundice, change in urine color, dysuria, melena, hematochezia, hematemesis, coffee-ground emesis, hematuria, dysuria, polydipsia, hemoptysis, epistaxis, chest pain, shortness of breath, seiz ure, syncope, muscle aches, joint aches, depression, anxiety, or other. Physical Examination: Vital signs: : She is 5 feet 6 inches, 200 pounds. BMI of 32.3 kg/m2. She has a temperature 96.8 d egrees Fahrenheit, pulse 105, respirations 16, blood pressure 136/84, O2 saturation 100%. General: She is an obese female, lying in bed, in no acute distress. She has a 7/10 pain in her belly, but looks comfortable watching cartoons on TV with her in the room. HEENT: Normocephalic, atraumatic. Anicteric. Pupils equal, round, and reactive to light. Extraocu lar movements are intact. Oropharynx clear. Neck: Supple. No masses. Respirations: Clear to ausculation bilaterally. Cardiac: Regular rate and rhythm. No gallops. Abdomen: She did have pain in the midepigastric right upper quadrant area with mild guarding, but no peritoneal or Dougherty signs. No rebound. Extremities: No clubbing, cyanosis, or edema. Neuro: Alert and oriented x3. Grossly nonfocal. 5/5 motor. Sensation to light touch. Laboratory Data: Patient has a white count of 17.1, hemoglobin 14.8, hematocrit 44.3, MCV of 98, lam telet count 234, polys 86%, lymphocytes 8%, monocytes 3%, eosinophils 2%. The patient's sodium 139, potassium 3.8, chloride 196, bicarb 23, BUN of 7, creatinine of 1.2, glucose 136, lactate of 1.3, sarbjit cium 9.7, total bilirubin 1.5, AST of 66, ALT 26, alkaline phosphatase 254, total protein 9.5, albumi n 3.2, lipase 167. UA revealed specific gravity of greater than 1.030, extremely turbid, trace k[place] es, 1+ blood, 2+ bilirubin, 4+ urobilinogen, 21 to 50 rbc's, 10 to 20 white blood cells, occasional w aileen cell clumps, no squamous epithelial cells, no bacteria seen, greater than 20 hyaline casts, 4+ m ucus, 2+ protein, negative test. CT abdomen and pelvis revealed cholecystectomy changes, f ree fluid small amount in the abdomen and pelvis. HIDA scan revealed no bile leak, tracer in the edmund er going through biliary tree to small bowel as expected. No bile leak seen. MRCP revealed mild juni e fluid in the upper abdomen. Impression: Postop laparoscopic cholecystectomy pain with inflammation and fluid, possible infection with CT revealing cholecystectomy, small amount of free fluid in the abdomen and pelvis. HIDA scan revealed no bile leak. MRCP revealed free fluid in the upper abdomen. The patient with right upper quadrant pain x1 day, 8, now 710 with nausea, vomiting, bloating. No fevers or chills. A white count of 17.1. 1.Sepsis. White count 17.1, possibly secondary to urinary tract infection, postop cholecystectomy, peritonitis, ascending cholangitis, or other. 2.History of hyponatremia. Sodium of 129, probably due to dehydration versus SIADH . 3.History of cholecystitis, cholelithiasis. Laparoscopic cholecystectomy, . Recommendation: 1.Check blood cultures, urine culture. 2.Continue IV fluids, IV antibiotics. 3.Continue p.r.n. pain medications and antiemetics. 4.Monitor labs. 5.Consider ascending cholangitis or peritonitis or other source of infection. 6.Check chest x-ray now SIADH with low sodium 129 and double cover for gram-negative bacter ia in setting of possible peritoneal infection status post laparoscopic cholecystectomy or other. ASHLEY/ABHI Voice ID: [id number] Report ID: [id number]
[2024-06-30 04:26] LABS: Absolute Basophils 0.1 K/uL (0-0.5); Absolute Eosinophils 0.5 K/uL (0-0.5); Absolute Monocytes 0.5 K/uL (0.1-1.3); Absolute Neutrophil 10.6 K/uL (1.8-8.0); Basophils % 0.8 % (0-1.3); Eosinophils % 4.3 % (0-4.4); Hematocrit 38.8 % (36.0-45.0); Hemoglobin 12.8 g/dL (12.0-15.0); Lymphocytes % 7.6 % (15.3-44.8); MCV 99.9 fL (80-100); Monocytes % 4.1 % (3.3-12.3); Neutrophils % 83.2 % (41.7-73.7); Platelets 170 thou/uL (152-406); RBC Red Blood Cell Count 3.88 M/uL (3.86-4.86); Red Cell Distribution Width 14.1 % (12.1-15.2)
[2024-06-30 05:07] LABS: Albumin 2.3 g/dL (3.4-5.0); Albumin/Globulin Ratio 0.5 (1.1-1.8); Globulin 4.5 g/dL (2.3-3.5); Protein, Total 6.8 g/dL (6.4-8.2)
[2024-06-30 06:05] LABS: Magnesium 2.1 mg/dL (1.6-2.4); Phosphorus 2.7 mg/dL (2.5-4.9)
[2024-06-30] MEDS: Levofloxacin500mg IV 500 MG/100 ML BAG IV SCH (07:15)
--- NOTE | 2024-06-30 08:55 | RAD REPORT ---
EXAMINATION: TWO VIEW CHEST XR CLINICAL INDICATION: Female, 33 years old. [facility] MAIN sepsis, low sodium, ?SIADH? TECHNIQUE: 2 view radiographs of the chest were performed. COMPARISON: 02/04/2024 FINDINGS: The lungs are well inflated and clear. No pneumothorax or sizable effusion. The heart is normal in si ze. Mediastinal contours are unremarkable. IMPRESSION: No acute or significant abnormalities.
--- NOTE | 2024-06-30 10:17 | P.PN ---
Date of Service: 06/30/24 Subjective Nausea improved, no fever, no vomiting, voiding well, pain decreased and more epigastic in location Physical Examination - Vital Signs Temperature: 98.2 F Blood Pressure: 122/78 Pulse: 76 Respirations: 18 Pulse Ox (%): 94 - Physical Exam General: Alert, Oriented x3, no distress HEENT: Atraumatic, Normocephalic Neck: Supple, JVD not distended Respiratory: Clear to auscultation bilaterally, Normal air movement Cardiovascular: Regular rate/rhythm, Normal S1 S2 Capillary refill: <2 Seconds Gastrointestinal: Soft and benign, Distended, Tenderness decreased from 06/29/24 and more midline/epigastric Musculoskeletal: No clubbing Integumentary: No rashes, No breakdown Neurological: Normal speech, Normal strength at 5/5 x4 extr, Normal reflexes 2+, Normal affect Lymphatics: No axilla or inguinal lymphadenopathy Assessment and Plan Postsurgical pain Status post cholecystectomy Elevated LFTs noted Pain control N.p.o. for now CT findings noted 33-year-old female Status post cholecystectomy. Free fluid in the abdomen and pelvis worrisome for a bile leak. Correlation with a HIDA scan is recommended for further evaluation. Will obtain HIDA scan Surgical consult Also consult GI for possible biliary leak 06/30/[address] Dior and Dr. Benjamin Ms. Polk is improving with Zosyn Will advance diet slowly and see how much she improves overnight HIDA and MRCP do not indicate a bile leak or any obstructions LFTs normalized WBC trending down from 17.2 to 12.7. Blood cultures without growth One dose IV Levaquin given today. UTI Started on IV Antibiotics Urine culture without growth Last sample with >20 casts - will reassess urine micro tomorrow Hyponatremia Electrolytes monitor and replace accordingly IV hydration Normalized post IVF Acute kidney injury Monitor renal parameters Electrolytes monitor and replace accordingly Creatinine returned to normal Clear liquid diet and then will change IVF from D5NS GI/DVT prophylaxis Advanced directive full code Discharge Plan: Home Plan to discharge in: 24 Hours - Advance Directives Does patient have a Living Will: No Does patient have a Durable POA for Healthcare: No - Code Status/Comfort Care Code Status: Full Code Time Spent Managing Pts Care (In Minutes): 50 <Michelle Wynne - Last Filed: 06/30/24 10:18> Postoperative localized fluid collection in the right upper quadrant and hypertrophy of the left hepatic lobe by CT scan, and leukocytosis could be reactive secondary to operation, per general surgeon patient has a early sign of liver cirrhosis during laparoscopic cholecystectomy, patient admitted to drinking alcohol excessively. She does not have any signs of decompensated liver cirrhosis, therefore most likely postoperative fluid collection rather than ascites due to liver cirrhosis. <KACI Aguirre - Last Filed: 06/30/24 15:48>
[2024-06-30] MEDS: FLU (Fluarix Triv) TS24-25(6MOS UP)/PF 45 MCG/0.5 ML Syringe IM ONE (10:45)
[2024-06-30 15:33] LABS: Specific Gravity 1.013 (1.005-1.030); Urine Bilirubin NEGATIVE (Negative); Urine Blood Negative (Negative); Urine Clarity Clear (Clear); Urine Color Yellow (Yellow); Urine Glucose NEGATIVE (Negative); Urine Ketones NEGATIVE (Negative); Urine Microscopic Reflex YN NO UMIC; Urine Nitrite NEGATIVE (Negative); Urine Protein NEGATIVE (Negative); Urine Urobilinogen 2+ (Normal); Urine pH 6.5 (5.0-7.0)
--- NOTE | 2024-06-30 17:54 | P.PN ---
Subjective Date of Service: 06/30/24 Chief Complaint: RUQ abdominal pain, abnormal CT, s/p lap benedicto, no bile leak by HIDA Subjective: Improving (Feels much better, tolerating CLs. WBC 17 to 12 overnight on IV antibiotics.) Review of Systems 10-point ROS is otherwise unremarkable General: Weakness (Improving.) Gastrointestinal: Abdominal Pain (Improving.) Physical Examination - Vital Signs Temperature: 96.8 F Blood Pressure: 158/103 Pulse: 102 Respirations: 15 Pulse Ox (%): 100 - Physical Exam General: Alert, In no apparent distress, Oriented x3, Cooperative HEENT: Atraumatic, Normocephalic, PERRLA, EOMI Neck: Supple Respiratory: Normal air movement Cardiovascular: Normal pulses Gastrointestinal: No rebound, No guarding, Tenderness (Improving.) Neurological: Normal speech, Normal strength at 5/5 x4 extr Assessment And Plan - Current Problems (Diagnosis) (1) Peritonitis Current Visit: Yes Status: Acute (2) RUQ abdominal pain Current Visit: Yes Status: Acute (3) Lactic acidosis Current Visit: No Status: Acute (4) Nausea & vomiting Current Visit: No Status: Acute Qualifiers: Vomiting type: bilious vomiting Qualified Code(s): R11.14 - Bilious vomiting (5) Sepsis Current Visit: No Status: Acute Qualifiers: Sepsis acute organ dysfunction status: without acute organ dysfunction - Plan REC: 1) continue IV antibiotics, once WBC normal switch po as per surgery instructions 2) advance diet to FLs 3) probable discharge tomorrow
[2024-06-30] MEDS: SIMETHICONE 125 MG TAB PO SCH (20:26)
[2024-07-01 05:22] LABS: Sqamous Epithelial <5 /HPF (None Seen); Urine Bacteria None Seen /HPF (<20); Urine Culture Reflex Order NOT NEEDED; Urine Micro Reflex YN NO BILL MICROSCOPIC; Urine Mucus Slight /HPF (None Seen); Urine RBC None Seen /HPF (None Seen); Urine WBC <5 /HPF (<5)
[2024-07-01 07:25] LABS: Absolute Basophils 0.1 K/uL (0-0.5); Absolute Eosinophils 0.4 K/uL (0-0.5); Absolute Monocytes 0.6 K/uL (0.1-1.3); Absolute Neutrophil 12.1 K/uL (1.8-8.0); Basophils % 0.8 % (0-1.3); Eosinophils % 3.1 % (0-4.4); Hematocrit 40.4 % (36.0-45.0); Hemoglobin 13.5 g/dL (12.0-15.0); Lymphocytes % 7.2 % (15.3-44.8); MCH 33.2 pg (27.0-35.0); MCHC 33.4 g/dL (32.0-36.0); MCV 99.5 fL (80-100); MPV 6.8 fL (7.6-11.3); Monocytes % 3.9 % (3.3-12.3); Platelets 179 thou/uL (152-406); RBC Red Blood Cell Count 4.06 M/uL (3.86-4.86); Red Cell Distribution Width 14.3 % (12.1-15.2)
[2024-07-01 07:49] LABS: AST/SGOT 33 U/L (15-37); Albumin 2.1 g/dL (3.4-5.0); Albumin/Globulin Ratio 0.5 (1.1-1.8); Alkaline Phosphatase 195 U/L (45-117); Anion Gap 6.2 mEq/L (5.0-15.0); Bicarbonate 28 mEq/L (21-32); Bilirubin Total 0.9 mg/dL (0.2-1.0); Globulin 4.1 g/dL (2.3-3.5); Glomerular Filtration Rate 130 ml/min (=/>90); Glucose Level 126 mg/dL (74-106); Potassium 4.2 mEq/L (3.5-5.1); Protein, Total 6.2 g/dL (6.4-8.2); Sodium Level 134 mEq/L (136-145)
[2024-07-01 07:54] LABS: ALT/SGPT < 14 U/L (13-56); BUN Blood Urea Nitrogen < 3 mg/dL (7-18)
--- NOTE | 2024-07-01 10:22 | P.PN ---
Date of Service: 07/01/24 Subjective Nausea improved, no fever, no vomiting, voiding well, pain decreased and more epigastic in location. WBC was trending down to 12.7 but is at 14 today. Physical Examination - Vital Signs reviewed - Physical Exam General: Alert, Oriented x3, no distress HEENT: Atraumatic, Normocephalic Neck: Supple, JVD not distended Respiratory: Clear to auscultation bilaterally, Normal air movement Cardiovascular: Regular rate/rhythm, Normal S1 S2 Capillary refill: <2 Seconds Gastrointestinal: Soft and benign, Distended (gas x, relieved), Tenderness decreased from 06/29/24 and more midline/epigastric, log deck tender at midline/epigastrics area 07/01/24 Musculoskeletal: No clubbing Integumentary: No rashes, No breakdown Neurological: Normal speech, Normal strength at 5/5 x4 extr, Normal reflexes 2+, Normal affect Lymphatics: No axilla or inguinal lymphadenopathy Assessment and Plan Postsurgical pain Status post cholecystectomy Elevated LFTs noted 33-year-old female Status post cholecystectomy. Free fluid in the abdomen and pelvis worrisome for a bile leak. Correlation with a HIDA scan is recommended for further evaluation. HIDA scan negative Surgical consult - Dr Dior following Dr. Benjamin following 06/30/[address] Dior and Dr. Benjamin Ms. Polk is improving with Zosyn Will advance diet slowly and see how much she improves overnight HIDA and MRCP do not indicate a bile leak or any obstructions LFTs normalized 07/01/24 WBC trending down from 17.2 to 12.7 but is up to 14.2 - discussed with Dr. Dior. Will keep on IV abx overnight and reassess. Blood/urine cultures without growth One dose IV Levaquin given 06/30/24. abnormal urine micro Started on IV Antibiotics Urine culture without growth Last sample with >20 casts - will reassess urine micro tomorrow - resolved 07/01/24 Hyponatremia resolved Acute kidney injury resolved GI/DVT prophylaxis Advanced directive full code Discharge Plan: Home Plan to discharge in: 24 Hours - Advance Directives Does patient have a Living Will: No Does patient have a Durable POA for Healthcare: No - Code Status/Comfort Care Code Status: Full Code Time Spent Managing Pts Care (In Minutes): 50
--- NOTE | 2024-07-01 14:26 | P.PN ---
Subjective Date of Service: 07/01/24 Chief Complaint: RUQ abdominal pain, abnormal CT, s/p lap benedicto, no bile leak by HIDA Subjective: New changes (WBC has increased overnight from 12 to 14K. She feels fine, without RUQ pain.) Review of Systems 10-point ROS is otherwise unremarkable General: Weakness (Improved.) Physical Examination - Vital Signs Temperature: 97.5 F Blood Pressure: 155/93 Pulse: 104 Respirations: 16 Pulse Ox (%): 100 - Physical Exam General: Alert, In no apparent distress, Oriented x3, Cooperative HEENT: Atraumatic, Normocephalic, PERRLA Neck: Supple Respiratory: Normal air movement Cardiovascular: Normal pulses Gastrointestinal: Soft and benign, No tenderness, No rebound, No guarding Neurological: Normal speech, Normal strength at 5/5 x4 extr - Studies Microbiology Data (last 24 hrs): 06/28/24 22:14 Clean Catch Urine [place] Count - Final No growth. 06/28/24 22:14 Clean Catch Urine - Final No growth. Assessment And Plan - Current Problems (Diagnosis) (1) Peritonitis Current Visit: Yes Status: Acute (2) RUQ abdominal pain Current Visit: Yes Status: Acute (3) Lactic acidosis Current Visit: No Status: Acute (4) Nausea & vomiting Current Visit: No Status: Acute Qualifiers: Vomiting type: bilious vomiting Qualified Code(s): R11.14 - Bilious vomiting (5) Sepsis Current Visit: No Status: Acute Qualifiers: Sepsis acute organ dysfunction status: without acute organ dysfunction - Plan REC: 1) continue IV antibiotics, once WBC normal switch po as per surgery instructions 2) advance diet to heart healthy, avoid sugar 3) add Levaquin
[2024-07-01] MEDS: Levofloxacin500mg IV 500 MG/100 ML BAG IV SCH (15:22)
[2024-07-02 06:44] LABS: Absolute Eosinophils 0.4 K/uL (0-0.5); Absolute Lymphocytes (CBC) 1.1 K/uL (0.7-4.9); Absolute Monocytes 0.5 K/uL (0.1-1.3); Basophils % 0.2 % (0-1.3); Eosinophils % 2.3 % (0-4.4); Hemoglobin 13.6 g/dL (12.0-15.0); Lymphocytes % 6.7 % (15.3-44.8); MCH 33.5 pg (27.0-35.0); MCV 98.7 fL (80-100); MPV 6.7 fL (7.6-11.3); Monocytes % 3.4 % (3.3-12.3); Neutrophils % 87.4 % (41.7-73.7); Nucleated Red Blood Cells % 0.1 % (0-0); Platelets 201 thou/uL (152-406); RBC Red Blood Cell Count 4.05 M/uL (3.86-4.86); Red Cell Distribution Width 14.2 % (12.1-15.2)
[2024-07-02 06:58] LABS: AST/SGOT 27 U/L (15-37); Albumin/Globulin Ratio 0.5 (1.1-1.8); Alkaline Phosphatase 195 U/L (45-117); Anion Gap 8.5 mEq/L (5.0-15.0); Bicarbonate 27 mEq/L (21-32); Bilirubin Total 0.8 mg/dL (0.2-1.0); Globulin 3.9 g/dL (2.3-3.5); Glomerular Filtration Rate 125 ml/min (=/>90); Glucose Level 141 mg/dL (74-106); Potassium 4.5 mEq/L (3.5-5.1); Protein, Total 5.9 g/dL (6.4-8.2); Sodium Level 134 mEq/L (136-145)
[2024-07-02 07:10] LABS: ALT/SGPT < 14 U/L (13-56); BUN Blood Urea Nitrogen < 3 mg/dL (7-18)
[2024-07-02 08:49] LABS: Blood Morphology Comment NOT SEEN (NOT SEEN); Differential Total Cells Count 100; Lymphocytes 5 % (15-42); Monocytes 1 % (0-10); Platelet Estimate ADEQ; Platelets, Giant NOTED; Segmented Neutrophils 94 % (40-80)
--- NOTE | 2024-07-02 10:04 | P.PN ---
Date of Service: 07/02/24 Subjective Nausea improved, no fever, voiding well, pain decreased and more epigastic in location. WBC was trending down to 12.7 but is at 14 07/01/24 and today is 16.0. Physical Examination - Vital Signs reviewed - Physical Exam General: Alert, Oriented x3, no distress HEENT: Atraumatic, Normocephalic Neck: Supple, JVD not distended Respiratory: Clear to auscultation bilaterally, Normal air movement Cardiovascular: Regular rate/rhythm, Normal S1 S2 Capillary refill: <2 Seconds Gastrointestinal: Soft and benign, Distended (gas x, relieved), Tenderness decreased from 06/29/24 and more midline/epigastric, slide forming machine tender at midline/epigastrics area 07/01/24 - 07/02/24 Musculoskeletal: No clubbing Integumentary: No rashes, No breakdown Neurological: Normal speech, Normal strength at 5/5 x4 extr, Normal reflexes 2+, Normal affect Lymphatics: No axilla or inguinal lymphadenopathy Assessment and Plan Postsurgical pain Status post cholecystectomy Elevated LFTs noted 33-year-old female Status post cholecystectomy. Free fluid in the abdomen and pelvis worrisome for a bile leak. Correlation with a HIDA scan is recommended for further evaluation. HIDA scan negative Surgical consult - Dr Dior following Dr. Benjamin following 06/30/[address] Dior and Dr. Benjamin Ms. Polk is improving with Zosyn Will advance diet slowly and see how much she improves overnight HIDA and MRCP do not indicate a bile leak or any obstructions LFTs normalized 07/01/24 WBC trending down from 17.2 to 12.7 but is up to 14.2 - discussed with Dr. Dior. Will keep on IV abx overnight and reassess. Blood/urine cultures without growth One dose IV Levaquin given 06/30/24. 07/02/24 po Levaquin reinitiated pt ambulating in hallway WBC again up to 16. Discussed with patient. She admits to two episodes of vomiting. Would that be enough to bump WBC?. will reassess WBC at 1630. She did advance her diet after the vomiting 07/01/24 but tolerated it well. Will increases gas x to QID scheduled abnormal urine micro Started on IV Antibiotics Urine culture without growth Last sample with >20 casts - will reassess urine micro tomorrow - resolved 07/01/24 Hyponatremia resolved Acute kidney injury resolved GI/DVT prophylaxis Advanced directive full code Discharge Plan: Home Plan to discharge in: 24 Hours - Advance Directives Does patient have a Living Will: No Does patient have a Durable POA for Healthcare: No - Code Status/Comfort Care Code Status: Full Code Time Spent Managing Pts Care (In Minutes): 50
--- NOTE | 2024-07-02 13:17 | P.PN ---
Subjective Date of Service: 07/02/24 Chief Complaint: RUQ abdominal pain, abnormal CT, s/p lap benedicto, no bile leak by HIDA Subjective: New changes (Increasing WBC to 16 but no other major changes; labs otherwise stable. RUQ pain not worse, almost gone. On IVF D5NS which is to be stopped after IV antibiotics hanging is completed. Tolerating po well.) Review of Systems 10-point ROS is otherwise unremarkable Gastrointestinal: Abdominal Pain (Improved. ) Physical Examination - Vital Signs Temperature: 97.6 F Blood Pressure: 134/13 Pulse: 115 Respirations: 20 Pulse Ox (%): 99 - Physical Exam General: Alert, In no apparent distress, Oriented x3, Cooperative HEENT: Atraumatic, Normocephalic, PERRLA, EOMI Neck: Supple Respiratory: Normal air movement Cardiovascular: Regular rate/rhythm Gastrointestinal: No rebound, No guarding (obese), Tenderness (Improved. ) Neurological: Normal speech, Normal strength at 5/5 x4 extr Assessment And Plan - Current Problems (Diagnosis) (1) Peritonitis Current Visit: Yes Status: Acute (2) RUQ abdominal pain Current Visit: Yes Status: Acute (3) Lactic acidosis Current Visit: No Status: Acute (4) Nausea & vomiting Current Visit: No Status: Acute Qualifiers: Vomiting type: bilious vomiting Qualified Code(s): R11.14 - Bilious vomiting (5) Sepsis Current Visit: No Status: Acute Qualifiers: Sepsis acute organ dysfunction status: without acute organ dysfunction - Plan REC: 1) continue IV antibiotics, once WBC normal switch po as per surgery instructions 2) d/c IVF D5NS as ordered by IM 3) if WBC has not improved by tomorrow AM, recheck HIDA scan
[2024-07-02] MEDS: SIMETHICONE 125 MG TAB PO SCH (14:50)
[2024-07-02] MEDS: POLYETHYL GLY 3350 17 GM/DOSE PO PRN (17:35)
[2024-07-02] MEDS: lisinopriL 10 MG TAB PO SCH (20:37)
[2024-07-03 05:00] LABS: AST/SGOT 27 U/L (15-37); Albumin 1.9 g/dL (3.4-5.0); Albumin/Globulin Ratio 0.5 (1.1-1.8); Alkaline Phosphatase 202 U/L (45-117); Anion Gap 7.9 mEq/L (5.0-15.0); BUN Blood Urea Nitrogen 3 mg/dL (7-18); Bicarbonate 25 mEq/L (21-32); Bilirubin Total 1.1 mg/dL (0.2-1.0); Glomerular Filtration Rate 130 ml/min (=/>90); Glucose Level 137 mg/dL (74-106); Potassium 3.9 mEq/L (3.5-5.1); Protein, Total 5.9 g/dL (6.4-8.2); Sodium Level 128 mEq/L (136-145)
[2024-07-03 05:01] LABS: Absolute Basophils 0.1 K/uL (0-0.5); Absolute Eosinophils 0.5 K/uL (0-0.5); Absolute Lymphocytes (CBC) 1.3 K/uL (0.7-4.9); Absolute Monocytes 0.5 K/uL (0.1-1.3); Absolute Neutrophil 12.3 K/uL (1.8-8.0); Basophils % 0.6 % (0-1.3); Eosinophils % 3.2 % (0-4.4); Hematocrit 39.1 % (36.0-45.0); Hemoglobin 13.3 g/dL (12.0-15.0); Lymphocytes % 8.9 % (15.3-44.8); MCH 33.2 pg (27.0-35.0); MCHC 34.1 g/dL (32.0-36.0); MCV 97.5 fL (80-100); MPV 6.9 fL (7.6-11.3); Monocytes % 3.5 % (3.3-12.3); Neutrophils % 83.8 % (41.7-73.7); Platelets 202 thou/uL (152-406); RBC Red Blood Cell Count 4.01 M/uL (3.86-4.86); Red Cell Distribution Width 13.7 % (12.1-15.2)
[2024-07-03 05:05] LABS: ALT/SGPT < 14 U/L (13-56)
[2024-07-03 11:19] LABS: Protime INR 1.72
[2024-07-03] MEDS: METRONIDAZOLE 500mg IVPB 500 MG/100 ML BAG IV SCH (13:37)
--- NOTE | 2024-07-03 15:39 | PN ---
Date of Progress Note: 07/03/2024 Subjective: The patient is awake, alert, tolerating some food. However, she is complaining of some epigastric discomfort. No nausea or vomiting. Her vital signs are stable. She is afebrile. Laboratory Data: Reviewed. White count is 14.7. There is a slight left shift. Chemistry shows a s odium of 128, total bilirubin is 1.1, alkaline phosphatase is 202. The remainder of the LFTs are wit hin normal limits and protein levels are low. Her abdominal exam shows fluid present inside the abdo men, but there is no peritonitis. Mild tenderness in the epigastric region. Assessment: Status post laparoscopic cholecystectomy with ascites, etiology unclear as the patient's HIDA scan was negative. MRCP was essentially negative. She does have cirrhosis and this may be sec ondary to that. Recommendations: I discussed the case with Dr. Mcarthur and we will get Radiology to do a paracentesis f or diagnostic and therapeutic purposes and based on the result, we will make further recommendation. At this time, the patient does not need any surgical intervention and I will discuss the case furthe r with a machine set up technician, Dr. Benjamin. /MODL Voice ID: [id number] Report ID: [id number]
--- NOTE | 2024-07-03 18:04 | RAD REPORT ---
EXAMINATION: US Abdomen Exam Limited CLINICAL HISTORY: [facility] MAIN ASCITES CHECK COMPARISON: CT abdomen pelvis 06/28/2024 and MRI abdomen 06/29/2020. TECHNIQUE: Limited four-quadrant abdominal grayscale sonographic images. FINDINGS: Moderate ascites most pronounced in the lower quadrant left upper quadrant. IMPRESSION: Moderate ascites as above.
[2024-07-04 04:42] LABS: Absolute Eosinophils 0.5 K/uL (0-0.5); Absolute Lymphocytes (CBC) 1.5 K/uL (0.7-4.9); Absolute Monocytes 0.7 K/uL (0.1-1.3); Absolute Neutrophil 9.7 K/uL (1.8-8.0); Basophils % 0.4 % (0-1.3); Eosinophils % 4.3 % (0-4.4); Hematocrit 39.1 % (36.0-45.0); Hemoglobin 13.3 g/dL (12.0-15.0); MCH 32.9 pg (27.0-35.0); MCV 96.9 fL (80-100); MPV 7.2 fL (7.6-11.3); Monocytes % 5.3 % (3.3-12.3); Nucleated Red Blood Cells % 0.1 % (0-0); Platelets 202 thou/uL (152-406); RBC Red Blood Cell Count 4.04 M/uL (3.86-4.86)
[2024-07-04 04:51] LABS: AST/SGOT 32 U/L (15-37); Albumin/Globulin Ratio 0.5 (1.1-1.8); Alkaline Phosphatase 209 U/L (45-117); Anion Gap 9.9 mEq/L (5.0-15.0); BUN Blood Urea Nitrogen 4 mg/dL (7-18); Bicarbonate 24 mEq/L (21-32); Bilirubin Total 1.1 mg/dL (0.2-1.0); Glomerular Filtration Rate 134 ml/min (=/>90); Glucose Level 127 mg/dL (74-106); Potassium 3.9 mEq/L (3.5-5.1); Sodium Level 127 mEq/L (136-145)
[2024-07-04 05:02] LABS: ALT/SGPT < 14 U/L (13-56)
--- NOTE | 2024-07-04 09:38 | RAD REPORT ---
PROCEDURE: ULTRASOUND GUIDED PARACENTESIS CLINICAL INDICATION: ascites PROCEDURE DETAILS: Consent: Informed consent for the procedure including risks, benefits and alternatives was obtained a nd time-out was performed prior to the procedure. Preparation: The site was prepared and draped using maximal sterile barrier technique including cutan eous antisepsis. Procedure: Initial limited abdominal ultrasound was performed and a large amount of ascites was seen. A safe window for paracentesis was identified with ultrasound to oliver a suitable access site. Local anesthesia was administered. The peritoneal cavity was accessed, and fluid return confirmed pos ition. A 8F pigtail drainage catheter was placed and ascites was drained. The catheter was removed, and a sterile bandage was applied. Following the procedure, albumin was administered per protocol. IMPRESSION: Ultrasound guided paracentesis, yielding 2100 mL of yellow fluid. PLAN: Aspirated fluid was sent for analysis.
[2024-07-04 11:54] LABS: Appearance SLT. TURBID (CLEAR); Body Fluid Lymphocytes 78 %; Body Fluid Source PERITONEAL; Body Fluid WBC 432 /mm^3; Color of fluid Yellow (COLORLESS); Fluid Total Cells Count 100; Tube # SINGLE
[2024-07-05 04:50] LABS: Absolute Basophils 0.1 K/uL (0-0.5); Absolute Eosinophils 0.7 K/uL (0-0.5); Absolute Lymphocytes (CBC) 1.6 K/uL (0.7-4.9); Absolute Monocytes 0.6 K/uL (0.1-1.3); Absolute Neutrophil 10.8 K/uL (1.8-8.0); Basophils % 0.4 % (0-1.3); Eosinophils % 4.8 % (0-4.4); Hematocrit 38.4 % (36.0-45.0); Hemoglobin 12.7 g/dL (12.0-15.0); Lymphocytes % 11.8 % (15.3-44.8); MCH 32.3 pg (27.0-35.0); MCHC 32.9 g/dL (32.0-36.0); MCV 98.2 fL (80-100); MPV 7.4 fL (7.6-11.3); Monocytes % 4.5 % (3.3-12.3); Neutrophils % 78.5 % (41.7-73.7); Platelets 185 thou/uL (152-406); RBC Red Blood Cell Count 3.91 M/uL (3.86-4.86)
[2024-07-05 04:55] LABS: Anion Gap 8.9 mEq/L (5.0-15.0); Potassium 3.9 mEq/L (3.5-5.1)
--- NOTE | 2024-07-05 10:13 | P.DS ---
Admission Date: 06/29/24 Discharge Date: 07/05/24 Disposition: ROUTINE DISCHARGE Reason for Admission: RUQ abdominal pain, abnormal CT, s/p lap benedicto, no bile leak by HIDA Brief History of Present Illness: 33 yrs old Female presents to ER with complaints of Post Surgical Pain, and abdominal Swelling.. Patient had a recent cholecystectomy on Wednesday. Tolerated the procedure well. She started having pain 2 days ago and has been progressively getting worse. Located in right upper quadrant and radiating diffusely. Associated with abdominal distention. Also has some nausea but no vomiting. Denies any chest pain or shortness of breath. No fevers or chills. No sick contacts. Patient was assessed in the ER and had a CT of the abdomen pelvis which showed Status post cholecystectomy. Free fluid in the abdomen and pelvis worrisome for a bile leak. Correlation with a HIDA scan is recommended for further evaluation. Patient was admitted for further management and surgical consult - Physical Exam General: Alert, Oriented HEENT: Atraumatic, Normocephalic Neck: Supple, JVD not distended Respiratory: Clear to auscultation bilaterally, Normal air movement Cardiovascular: Regular rate/rhythm, Normal S1 S2 Capillary refill: <2 Seconds Gastrointestinal: Soft and benign, tenderness Musculoskeletal: No clubbing Integumentary: No rashes, No breakdown Neurological: Normal speech, Normal strength at 5/5 x4 extr, Normal reflexes 2+, Normal affect Lymphatics: No axilla or inguinal lymphadenopathy Hospital Course: 33 yrs old Female presents to ER with complaints of Post Surgical Pain, and abdominal Swelling.. Patient had a recent cholecystectomy on Wednesday. Tolerated the procedure well. She started having pain 2 days ago and has been progressively getting worse. Located in right upper quadrant and radiating diffusely. Associated with abdominal distention. Also has some nausea but no vomiting. Denies any chest pain or shortness of breath. No fevers or chills. No sick contacts. Patient was assessed in the ER and had a CT of the abdomen pelvis which showed Status post cholecystectomy. Free fluid in the abdomen and pelvis worrisome for a bile leak. Correlation with a HIDA scan is recommended for further evaluation. Patient was admitted for further management and surgical consult, GI consult to evaluate, had noted decompensated liver disease with ascites, treated with paracentesis. Was treated with IV antibiotics for peritonitis which improved. Diet was advanced. Tolerating diet.m Discharge home follow-up with GI/surgery after discharge on po antibiotics, Case discussed with GI/Surgery prior to discharge. discharge on PO antibiotics Assessment Status post cholecystectomy postoperative complication of peritonitis-no lifting greater 10 lbs after discharge Right upper quadrant pain-due to peritonitis- improved, discharge on PO antibiotics Was noted to have sepsis with lactic acidosis, improved. treated with IV fluids, IV antibiotic whileinpatient Decompensated liver disease is status post paracentesis will need to follow-up with GI/hepatology after discharge Nausea and vomiting proved with antiemetics, Hypertension started on lisinopril while inpatient Continue home medicines as previously prescribed GOAL: Clear understanding of disease process INSTRUCTIONS: Physician Discharge Instructions: -Follow-up with PCP in 1 to 2 weeks -Please call Dr. Mcarthur at [phone] if any questions regarding hospital stay -Please call nursing station at [phone] if any nursing or medication questions -Return to the emergency room if symptoms worsen Diet: ADA, low sodium Activity: Fall precautions Vital Signs/Physical Exam: Temp Pulse Resp BP Pulse Ox 97.2 F 94 H 16 135/88 99 07/05/24 08:00 07/05/24 08:00 07/05/24 08:00 07/05/24 08:00 07/05/24 08:00 Laboratory Data at Discharge: WBC 13.70 thou/uL (4.3-10.9) H 07/05/24 04:16 Hgb 12.7 g/dL (12.0-15.0) 07/05/24 04:16 Hct 38.4 % (36.0-45.0) 07/05/24 04:16 Plt Count 185 thou/uL (152-406) 07/05/24 04:16 PT 19.0 SECONDS (9.4-12.5) H 07/03/24 10:58 INR 1.72 07/03/24 10:58 APTT 37.0 SECONDS (24.3-36.9) H 07/03/24 10:58 Sodium 127 mEq/L (136-145) L 07/05/24 04:16 Potassium 3.9 mEq/L (3.5-5.1) 07/05/24 04:16 BUN 3 mg/dL (7-18) L 07/05/24 04:16 Creatinine 0.36 mg/dL (0.55-1.02) L 07/05/24 04:16 Glucose 131 mg/dL (74-106) H 07/05/24 04:16 Phosphorus Cancelled 06/30/24 05:00 Magnesium Cancelled 06/30/24 05:00 Total Bilirubin 1.1 mg/dL (0.2-1.0) H 07/04/24 04:07 AST 32 U/L (15-37) 07/04/24 04:07 ALT < 14 U/L (13-56) 07/04/24 04:07 Alkaline Phosphatase 209 U/L (45-117) H 07/04/24 04:07 Lipase 43 U/L (13-75) 07/01/24 06:48 Home Medications: Hydrocodone 7.5/APAP 325 [[place] 7.5/325 mg*] 1 tab PO Q6HP PRN #20 tab 06/21/24 Ondansetron [Zofran] 4 mg PO Q6H PRN #20 tab 06/22/24 levoFLOXacin [Levaquin] 750 mg PO DAILY 4 Days #4 tab 07/05/24 metroNIDAZOLE [Flagyl] 500 mg PO Q12H 4 Days #8 tab 07/05/24 New Medications: metroNIDAZOLE [Flagyl] 500 mg PO Q12H 4 Days #8 tab levoFLOXacin [Levaquin] 750 mg PO DAILY 4 Days #4 tab Physician Discharge Instructions: Follow up with an Internal Medicine Physician of your choice: CHANDRIKA MARINA MD [address] [facility] [address] [place], [place] [address] ACCEPTING NEW PATIENTS! ALEJANDRO CARRIZALES MD [address] [facility], [place] [address] DI CARBAJAL MD [address] [place] [address] LIZZETH SILVA MD [address] [facility] [place] [address] HERNAN ABRAMS MD [address] [place] [address] Follow up with a Family Medicine Physician of your choice: TERRI COLIN MD [address] [facility], [address] [place] [address] ACCEPTING NEW PATIENTS! CHANDRIKA MARINA MD [address] [facility], [address] [place] [address] ACCEPTING NEW PATIENTS! ZACARIAS STEEN, DO [address] [place] [address] CHRIS BUENO MD [address] [facility], [facility] [address] [place] [address] OCTAVIO ENGLISH MD [address] [facility], [facility] [address] [place] [address] AURORA ZHU MD [address] [facility], [facility] [place] [address] NALINI CARBAJAL MD [address] [place] [address] YULY VARGAS, [facility] [address] [facility], [address] [place] [address] CONTRERAS CHIN MD [address] [facility], [address] [place] [address] ROSELINE CHIN APRN [facility] [address] [facility], [address] [place] [address] NADINE HERNANDEZ DO [address] [facility], [address] [place] [address] Activity: No lifting more than 10 lbs Followup: NONE,NONE [Primary Care Provider] - Ignacio Dior MD [ACTIVE - CAN ADMIT] - 1-2 Weeks Chris Benjamin MD [ASSOCIATE-ACTIVE - CAN ADMIT] - 1-2 Weeks Time spent managing pt's care (in minutes): 45
[2024-07-05 13:01] VITALS: BP 134/88; TEMP 97.5
[2024-07-10 16:51] LABS: TOTAL PROTEIN,PERITONEAL FLUID 3.4 g/dL
== END 2024-07-05 12:36 | disposition home or self-care (01) | DRG 393 ==
LOC: ER 21:39 → ERHOLD 06-29 01:30 → 2ND 06-29 14:03
PROVIDERS: ADMIT Family Medicine; ATTEND Hospitalist
DX: K91.89 Other postprocedural complications and disorders of digestive system (principal); A41.9 Sepsis, unspecified organism; K65.9 Peritonitis, unspecified; N39.0 Urinary tract infection, site not specified; N17.9 Acute kidney failure, unspecified; R18.8 Other ascites; K83.09 Other cholangitis; E22.2 Syndrome of inappropriate secretion of antidiuretic hormone; E87.20 Acidosis, unspecified; G89.18 Other acute postprocedural pain; K74.60 Unspecified cirrhosis of liver; R10.0 Acute abdomen; R94.5 Abnormal results of liver function studies; Z90.49 Acquired absence of other specified parts of digestive tract
CPT/HCPCS: 36415; 49083; 71046; 74177; 74181; 76705; 78226; 80048; 80053; 81001; 81003; 81015; 81025; 82042; 82247; 82945; 83605; 83615; 83690; 83735; 84100; 84157; 85025; 85610; 85730; 87040; 87070; 87086; 87088; 89050; 99285; A9537; J1171; J1650; J2270; J2405; J2543; J7030; J7042; J7799; Q9967

== ENCOUNTER 2024-07-08 21:11 | Emergency (ER) | payer OTHER ==
--- OUTSIDE RECORDS SUMMARY | 2024-07-08 21:17 | XMS REPORT | Continuity of Care Document ---
Author Name Unknown Address [address] [facility] [address] [place] [address] [facility] thconnect Address [address] [facility] [address] [place] [address] Care Team Providers Care Board Winder Name Role Phone Blanca Doss MD Primary Care Physician + [phone] DOLORES ALCAZAR Attending Clinician Unavailable BLANCA DOSS Attending Clinician Unavailab BLANCA Patterson Attending Clinician Unavailab le Doctor Unassigned, Andres Attending Clinician U navailable 2, [facility] Attending Clinician Unavailable Dolores Alcazar MD Attending Clinician [phone] Nurse, [facility] Attending Clinician Un available Odette Rene MD Attending Clinician [phone] Sreekanth Jhaveri MD Attending Clinician [phone] Pob, [facility] Main Attending Clinician Unavailabl e Room, [facility] Attending Clinician Unavailable 1, [facility] Room Attending Clinician Unavailable Gi Vance MD Attending Clinician [phone] GI VANCE Attending Clinician Unavailable GI VANCE Attending Clinician Unavailable Ultrasound, Ang-Mfm Attending Clinician Unavaila ble Lab, Ang - Db Attending Clinician Unavailable Nurse, [facility] Attending Clinician Unavailable Heath Gallo DO Attending Clinician [phone] HEATH GALLO Attending Clinician Unavailable EUGENE RICCI Attending Clinician Unavailable KAYLEEN SCHAEFER Attending Clinician Unavailable Kindra Griggs MD Attending Clinician [phone] Eugene Ricci PA-C Attending Clinician [phone] KINDRA GRIGGS Attending Clinician Unavailable Only, [facility] Test Attending Clinician Unavailable Ultrasound, [facility] Mfm Attending Clinician Unavaila ble Lab, [facility] Fam Pob I Attending Clinician Unavailab le Anene SCLEROSCOPE TESTER, Estephania Attending Clinician [phone] Jatinder Yeh MD Attending Clinician [phone] DOLORES ALCAZAR Admitting Clinician Unavailable Dolores Alcazar MD Admitting Clinician [phone] Kindra Griggs MD Admitting Clinician [phone] KINDRA GRIGGS Admitting Clinician Unavailable Payers Payer Name Policy Type Policy Number Effective Date Expirati on Date Source [facility] [id number] 2022 00:00:[place] [facility] [id number] 2022 00:00:00 Problems Condition Name Condition Details Condition Category Status Onset Date Resolution Date Last Treatment Date Treating Clinician Comments Source Liveborn infant, of lackey , born in hospital by delivery Liveborn , of lackey , born in hospital by delivery Disease Active 2022-08 00:00: 00 [facility] Encounter for female sterilizat ion procedure Encounter for female sterilizat ion procedure Disease Active 2022-08 00:00: 00 [facility] Polyhydram nios, antepartum , single or unspecifie d fetus Polyhydram nios, antepartum , single or unspecifie d fetus Disease Active 2022-08 0- 00:00: 00 [facility] Excessive growth affecting , antepartum , single or unspecifie d fetus Excessive growth affecting , antepartum , single or unspecifie d fetus Disease Active 2022-08 0- 00:00: 00 [facility] High-risk in third trimester High-risk in third trimester Disease Active 2023-0 9-27 00:00: 00 [facility] 34 weeks gestation of 34 weeks gestation of Disease Active 0 9-27 00:00: 00 [facility] 36 weeks gestation of 36 weeks gestation of Disease Active 0 9-27 00:00: 00 [facility] 37 weeks gestation of 37 weeks gestation of Disease Active 0 9-27 00:00: 00 [facility] Insulin controlled gestationa l diabetes mellitus (GDM) in third trimester Insulin controlled gestationa l diabetes mellitus (GDM) in third trimester Disease Active 0 8-30 00:00: 00 [facility] Previous section complicati ng Previous section complicati ng Disease Active 0 3-21 00:00: 00 [facility] High-risk in first trimester High-risk in first trimester Disease Active 0 3-21 00:00: 00 [facility] 7 weeks gestation of 7 weeks gestation of Disease Active 0 3-21 00:00: 00 [facility] 39 weeks gestation of 39 weeks gestation of Disease Active 1 0-26 00:00: 00 [facility] Liveborn , of lackey , born in hospital by delivery Liveborn , of lackey , born in hospital by delivery Disease Active 1 0-26 00:00: 00 [facility] Morbid obesity with body mass index of 40.0-49.9 Morbid obesity with body mass index of 40.0-49.9 Disease Active 2019-0 8-28 00:00: 00 [facility] Obesity (BMI 30-39.9) Obesity (BMI 30-39.9) Disease Active 0 4-20 00:00: 00 [facility] Mild intermitte nt asthma without complicati on Mild intermitte nt asthma without complicati on Disease Active 0 4-20 00:00: 00 [facility] Supervisio n of other normal Supervisio n of other normal Disease Active 0 4-20 00:00: 00 [facility] Previous section Previous section Disease Active 11-26 00:00: 00 [facility] Allergies, Adverse Reactions, Alerts Allergy Name Allergy Type Status Severity Reaction(s) Onset Date Inactive Date Treating Clinician Comments Source NO KNOWN ALLERGIE S Drug Class Active [facility] Social History Social Habit Start Date Stop Date Quantity Comments Source ASSERTION 2022-09-19 00:00:00 [facility] Alcohol intake 2023-10-11 00:00:00 2023-10-11 00:00:00 Ex-drinker (finding) [facility] History of Social function 2023-10-11 00:00:00 2023-10-11 00:00:00 [facility] Exposure to SARS-CoV-2 (event) 2023-01-09 00:00:00 2023-01-19 11:04:00 Not sure [facility] Tobacco use and exposure 2022-10-27 00:00:00 2022-10-27 00:00:00 Smokeless tobacco non-user [facility] Sex Assigned At 1990 00:00:00 1990 00:00:00 [facility] Smoking Status Start Date Stop Date Source Never smoked tobacco [facility] Medications Ordered Medication Name Filled Medication Name Start Date Stop Date Current Medication? Ordering Clinician Indication Dosage Frequency Signature (SIG) Comments Components Source losartan 25 mg tablet 10-10 00:00: 00 Yes [id number] 25mg Take 1 tablet by mouth in the morning. [facility] ibuprofen (IBU) tablet 600 mg 2022-08 17:00: 00 Yes 600mg 600 mg, Oral, Q6H, First dose on Wed05/26/23 at 1200, Until Discontinu ed, Routine [facility] vit no.124/iron /folic ( VITAMIN ORAL) 2022-08 11:26: 39 05-26 00:00 :00 No Take by mouth. [facility] HYDROcodone -acetaminop hen (NORCO 5) 5-325 mg tablet 1 tablet 2022-08 02:00: 00 Yes 1{tbl} 1 tablet, Oral, Q6HPRN, Starting on Wed05/25/23 at 2100, Until Discontinu ed, Routine, Pain (scale 4-6), Alternate with Ibuprofen [facility] HYDROcodone -acetaminop hen (NORCO 5) 5-325 mg tablet 2 tablet 2022-08 02:00: 00 Yes 2{tbl} 2 tablet, Oral, Q6HPRN, Starting on Wed05/25/23 at 2100, Until Discontinu ed, Routine, Pain (scale 7-10), Alternate with Ibuprofen [facility] vitamin w/FA tablet 2022-08 00:00: 00 Yes [id number] 1{tbl} Take 1 tablet by mouth in the morning. [facility] ibuprofen 600 mg tablet 2022-08 00:00: 00 06-22 00:00 :00 No [id number] 600mg Take 1 tablet by mouth every 6 (six) hours. [facility] gabapentin 300 mg capsule 2022-08 00:00: 00 06-22 00:00 :00 No [id number] 300mg Take 1 capsule by mouth in the morning and 1 capsule at noon and 1 capsule in the evening. [facility] HYDROcodone -acetaminop hen 5-325 mg tablet 2022-08 00:00: 00 06-03 04:59 :00 No [id number] 1{tbl} Take 1 tablet by mouth every 6 (six) hours as needed for Pain (scale 4-6) (Alternate with Ibuprofen) for up to 7 days. Indication s: acute pain [facility] acetaminoph en ADULT (OFIRMEV) injection 1,000 mg 2022-08 20:00: 00 05-25 21:17 :00 No 1000mg 1,000 mg, IV Infusion, at 400 mL/hr Administer over 15 Minutes, ONCE, 1 dose, On Wed05/25/23 at 1500, Routine
Indicatio n: Perioperat chantal Patient [facility] gabapentin (NEURONTIN) capsule 300 mg 2022-08 19:00: 00 Yes 300mg 300 mg, Oral, TID, First dose on Wed05/25/23 at 1400, Until Discontinu ed, Routine [facility] ketorolac (TORADOL) injection 30 mg 2022-08 17:00: 00 05-26 11:07 :00 No 30mg 30 mg, Slow IV Push, Q6H, 4 doses, First dose on Wed05/25/23 at 1200, Last dose on Wed05/26/23 at 0600, Routine [facility] lactated ringers IV infusion 1,000 mL 2022-08 15:45: 00 05-25 16:56 :44 No 1000mL at 125 mL/hr, 1,000 mL, IV Infusion, ONCE, 1 dose, On Wed05/25/23 at 1045, Routine [facility] diphenhydrA MINE (BENADRYL) injection 25 mg 2022-08 14:50: 30 Yes 25mg 25 mg, Slow IV Push, Q6HPRN, Starting on Wed05/25/23 at 0950, Until Discontinu ed, Routine, Itching [facility] diphenhydrA MINE (BENADRYL) tablet 25 mg 2022-08 14:50: 30 Yes 25mg 25 mg, Oral, Q6HPRN, Starting on Wed05/25/23 at 0950, Until Discontinu ed, Routine, Sleep, Itching [facility] ondansetron (ZOFRAN (PF)) injection 4 mg 2022-08 14:50: 30 Yes 4mg 4 mg, Slow IV Push, Q8HPRN, Starting on Wed05/25/23 at 0950, Until Discontinu ed, Routine, Nausea and Vomiting (N/V) [facility] bisacodyL (DULCOLAX) suppository 10 mg 2022-08 14:50: 30 Yes 10mg 10 mg, Rectal, QDAILYPRN, Starting on Wed05/25/23 at 0950, Until Discontinu ed, Routine, Constipati on [facility] simethicone (GAS RELIEF (SIMETHICON E)) chewable tablet 160 mg 2022-08 14:50: 30 Yes 160mg 160 mg, Oral, PC+HSPRN, Starting on Wed05/25/23 at 0950, Until Discontinu ed, Routine, Gas [facility] docusate (COLACE) capsule 200 mg 2022-08 14:50: 30 Yes 200mg 200 mg, Oral, QDAILYPRN, Starting on Wed05/25/23 at 0950, Until Discontinu ed, Routine, Constipati on [facility] magnesium hydroxide (MILK OF MAGNESIA) 400 mg/5 mL suspension 30 mL 2022-08 14:50: 30 Yes 30mL 30 mL, Oral, QDAILYPRN, Starting on Wed05/25/23 at 0950, Until Discontinu ed, Routine, Constipati on [facility] lactated ringers IV infusion 1,000 mL 2022-08 14:50: 30 Yes 1000mL at 125 mL/hr, 1,000 mL, IV Infusion, PRN, 1 dose, Starting on Wed05/25/23 at 0950, Until Discontinu ed, Routine [facility] acetaminoph en ADULT (OFIRMEV) injection 2022-08 13:59: 00 05-25 14:50 :13 No IV Infusion, Administer over 15 Minutes, ONCE INTRA PROCEDURE, Starting on Wed05/25/23 at 0859, Until Wed05/25/23 at 0950, Routine, Intra-op [facility] oxytocin (PITOCIN) 30 units in NS 500 mL IV infusion 2022-08 13:51: 00 05-25 14:50 :13 No IV Infusion, CONTINUOUS PRN, Starting on Wed05/25/23 at 0851, Until Wed05/25/23 at 0950, Routine, Intra-op [facility] NaCl 0.9% (NS) IV infusion 2022-08 13:50: 00 05-25 14:50 :13 No IV Infusion, CONTINUOUS PRN, Starting on Wed05/25/23 at 0850, Until Wed05/25/23 at 0950, Routine, [facility] sodium chloride 0.9 % irrigation solution 2022-08 13:35: 00 Yes PRN, Starting on Wed05/25/23 at 0835, Until Discontinu ed, Intra-op [facility] ondansetron (ZOFRAN (PF)) injection 2022-08 13:26: 00 05-25 14:50 :13 No Slow IV Push, ONCE INTRA PROCEDURE, Starting on Wed05/25/23 at 0826, Until Wed05/25/23 at 0950, Routine, Intra-op [facility] PHENYLephri ne 1000 mcg/10 mL in 0.9% NaCl syringe 2022-08 13:18: 00 05-25 14:50 :13 No Intravenou s, CONTINUOUS PRN, Starting on Wed05/25/23 at 0818, Until Wed05/25/23 at 0950, Routine, Intra-op [facility] ePHEDrine 25 mg/5 mL (5 mg/mL) syringe 2022-08 13:16: 00 05-25 14:50 :13 No Intravenou s, ONCE INTRA PROCEDURE, Starting on Wed05/25/23 at 0816, Until Wed05/25/23 at 0950, Routine, Intra-op [facility] morpHINE PF (DURAMORPH- PF) injection 2022-08 13:15: 00 05-25 14:50 :13 No Epidural, ONCE INTRA PROCEDURE, Starting on Wed05/25/23 at 0815, Until Wed05/25/23 at 0950, Routine, Intra-op [facility] bupivacaine -dextrose-w ater-pf (MARCAINE SPINAL (PF)) 0.75 % (7.5 mg/mL) injection 2022-08 13:15: 00 05-25 14:50 :13 No Intraspina l, ONCE INTRA PROCEDURE, Starting on Wed05/25/23 at 0815, Until Wed05/25/23 at 0950, Routine, Intra-op [facility] ceFAZolin (ANCEF) injection 2022-08 13:09: 00 05-25 14:50 :13 No IV Piggyback, ONCE INTRA PROCEDURE, Starting on Wed05/25/23 at 0809, Until Wed05/25/23 at 0950, DARIA, Intra-op [facility] lactated ringers IV infusion 2022-08 13:05: 00 05-25 14:50 :13 No IV Infusion, CONTINUOUS PRN, Starting on Wed05/25/23 at 0805, Until Wed05/25/23 at 0950, Routine, Intra-op [facility] acetaminoph en (TYLENOL) tablet 650 mg 2022-08 11:15: 00 05-25 12:30 :00 No 650mg 650 mg, Oral, ONCE, 1 dose, On Wed05/25/23 at 0615, Routine [facility] lactated ringers IV infusion 1,000 mL 2022-08 11:15: 00 05-25 14:59 :09 No 1000mL at 125 mL/hr, 1,000 mL, IV Infusion, CONTINUOUS , Starting on Wed05/25/23 at 0615, Until Wed05/25/23 at 0959, Routine [facility] lactated ringers IV infusion 500 mL 2022-08 11:15: 00 05-25 12:52 :00 No 500mL at 999 mL/hr, 500 mL, IV Infusion, ONCE, 1 dose, On Wed05/25/23 at 0615, Routine [facility] sodium citrate-cit rach acid (BICITRA) 500-334 mg/5 mL solution 30 mL 2022-08 11:02: 54 05-25 12:52 :00 No 30mL 30 mL, Oral, PRE-PROCED URE ONCE, 1 dose, Starting on Wed05/25/23 at 0602, Until Wed05/27/23 at 2359, Routine, Surgery/Pr ocedure [facility] vit no.124/iron /folic ( VITAMIN ORAL) 2022-08 05:57: 56 Yes Take by mouth. [facility] ACCU-CHEK SOFTCLIX LANCETS [facility] 9-10 00:00: 00 05-26 00:00 :00 No [facility] Insulin Syringes, Disposable, 1 mL Syrg 04-07 00:00: 00 05-26 00:00 :00 No Use as directed [facility] insulin NPH (NOVOLIN N NPH U-100 INSULIN) 100 unit/mL injection 04-07 00:00: 00 05-26 00:00 :00 No Inject 15 units subcutaneo usly every night at 10 pm. [facility] BD VEO INSULIN SYRINGE UF 1 mL 31 gauge x 15/64" Syrg 04-07 00:00: 00 05-26 00:00 :00 No 10mg Take 10 mg by mouth. [facility] Blood-Gluco se Meter (ACCU-CHEK GUIDE GLUCOSE METER) [facility] 16 00:00: 00 05-26 00:00 :00 No Check blood sugar 4 times a day [facility] lancets 33 gauge [facility] 16 00:00: 00 05-26 00:00 :00 No Check blood sugar 4 times a day [facility] blood sugar diagnostic (ACCU-CHEK GUIDE TEST STRIPS) strip 03-24 00:00: 00 05-26 00:00 :00 No Check blood glucose 4 times a day [facility] Alcohol Swabs (ALCOHOL WIPES) [facility] 16 00:00: 00 05-26 00:00 :00 No Apply to area(s) 4 (four) times daily. [facility] ferrous sulfate (IRON, FERROUS SULFATE,) 325 mg (65 mg iron) tablet 03-10 00:00: 00 06-22 00:00 :00 No [id number] 325mg Take 1 tablet by mouth in the morning and 1 tablet in the evening. [facility] vit no.124/iron /folic ( VITAMIN ORAL) 11-25 11:20: 25 Yes Take by mouth. [facility] norethindro ne 0.35 mg tablet 2019-08 00:00: 00 10-29 00:00 :00 No [id number] 1{tbl} Take 1 tablet by mouth daily. [facility] ibuprofen (IBU) tablet 600 mg 2019-08 05:00: 00 Yes 600mg 600 mg, Oral, Q6H ABX, First dose on Wed06/05/20 at 0000, Until Discontinu ed, Routine [facility] PNV 102-iron-fo late 1-dss-dha 90 mg iron-1 mg -50 mg-200 mg Cap 2019-08 15:53: 17 06-04 00:00 :00 No Take by mouth. [facility] HYDROcodone -acetaminop hen (NORCO 5) 5-325 mg tablet 1 tablet 2019-08 15:49: 16 Yes 1{tbl} 1 tablet, Oral, Q6HPRN, Starting Wed06/04/20 at 1049, Until Discontinu ed, Routine, Pain (scale 7-10) [facility] acetaminoph en (TYLENOL) tablet 650 mg 2019-08 13:45: 00 Yes 650mg 650 mg, Oral, Q6H ABX, First dose on Wed06/04/20 at 0845, Until Discontinu ed, Routine [facility] ketorolac (TORADOL) injection 30 mg 2019-08 05:00: 00 06-04 22:40 :00 No 30mg 30 mg, Slow IV Push, Q6H ABX, 4 doses, First dose on Wed06/04/20 at 0000, Last dose on Wed06/04/20 at 1800, Routine
physics faculty member approving Restricted medication : KINDRA GRIGGS [facility] gabapentin (NEURONTIN) capsule 300 mg 2019-08 03:00: 00 Yes 300mg 300 mg, Oral, Q8H, First dose (after last modificati on) on Wed06/03/20 at 2200, Until Discontinu ed, Routine [facility] acetaminoph en 325 mg tablet 2019-08 00:00: 10-29 00:00 :00 No [id number] 650mg Take 2 tablets by mouth every 6 (six) hours as needed for Pain (scale 1-3) or Pain (scale 4-6). [facility] vitamin w/FA tablet 2019-08 00:00: 10-29 00:00 :00 No [id number] 1{tbl} Take 1 tablet by mouth daily. [facility] ferrous sulfate 325 mg (65 mg iron) tablet 2019-08 00:00: 10-29 00:00 :00 No [id number] 325mg Take 1 tablet by mouth 2 (two) times daily. [facility] ibuprofen 600 mg tablet 2019-08 00:00: 10-29 00:00 :00 No [id number] 600mg Take 1 tablet by mouth every 6 (six) hours as needed for Pain (scale 1-3) or Pain (scale 4-6) (Pain). Take with food or milk. [facility] docusate calcium 240 mg capsule 2019-08 00:00: 00 07-02 00:00 :00 No [id number] 240mg Take 1 capsule by mouth once daily as needed for Constipati on. [facility] HYDROcodone -acetaminop hen 5-325 mg tablet 2019-08 00:00: 00 06-12 05:59 :00 No [id number] 1{tbl} Take 1 tablet by mouth every 6 (six) hours as needed for Pain (scale 7-10) for up to 7 days. Indication s: acute pain [facility] gabapentin 300 mg capsule 2019-08 00:00: 06-10 05:59 :00 No [id number] 300mg Take 1 capsule by mouth every 8 (eight) hours for 5 days. [facility] acetaminoph en ADULT (OFIRMEV) injection 1,000 mg 2019-08 19:45: 00 06-03 19:59 :00 No 1000mg 1,000 mg, IV Infusion, Administer over 15 Minutes, ONCE, 1 dose, Wed06/03/20 at 1445, Routine, PACU
In dication: Perioperat chantal Patient [facility] gabapentin (NEURONTIN) capsule 300 mg 2019-08 19:00: 00 06-03 22:40 :54 No 300mg 300 mg, Oral, TID, First dose on Wed06/03/20 at 1400, Until Discontinu ed, Routine [facility] simethicone (GAS RELIEF (SIMETHICON E)) chewable tablet 160 mg 2019-08 18:00: 00 Yes 160mg 160 mg, Oral, PC+HS, First dose on Wed06/03/20 at 1300, Until Discontinu ed, Routine [facility] lactated ringers IV infusion 1,000 mL 2019-08 16:30: 00 Yes 1000mL at 75 mL/hr, 1,000 mL, IV Infusion, CONTINUOUS , Starting Wed06/03/20 at 1130, Until Discontinu ed, Routine, PACU [facility] rho(D) immune globulin (RHOGAM) syringe 300 mcg 2019-08 16:25: 26 Yes 300ug 300 mcg, Intramuscu lar, ONCE, For 1 dose, Conditiona l, Routine [facility] ondansetron (ZOFRAN (PF)) injection 4 mg 2019-08 16:25: 13 Yes 4mg 4 mg, Slow IV Push, Q8HPRN, Starting Wed06/03/20 at 1125, Until Discontinu ed, Routine, Nausea and Vomiting (N/V) [facility] magnesium hydroxide (MILK OF MAGNESIA) 400 mg/5 mL suspension 30 mL 2019-08 16:25: 13 Yes 30mL 30 mL, Oral, QDAILYPRN, Starting Wed06/03/20 at 1125, Until Discontinu ed, Routine, Constipati on [facility] diphenhydrA MINE (BENADRYL) tablet 25 mg 2019-08 16:25: 12 Yes 25mg 25 mg, Oral, Q6HPRN, Starting Wed06/03/20 at 1125, Until Discontinu ed, Routine, Sleep, Itching [facility] bisacodyL (DULCOLAX) suppository 10 mg 2019-08 16:25: 12 Yes 10mg 10 mg, Rectal, QDAILYPRN, Starting Wed06/03/20 at 1125, Until Discontinu ed, Routine, Constipati on [facility] docusate calcium (SURFAK) capsule 240 mg 2019-08 16:25: 12 Yes 240mg 240 mg, Oral, QDAILYPRN, Starting Wed06/03/20 at 1125, Until Discontinu ed, Routine, Constipati on [facility] ondansetron (ZOFRAN (PF)) injection 4 mg 2019-08 16:24: 51 Yes 4mg 4 mg, Slow IV Push, PRN, 1 dose, Starting Wed06/03/20 at 1124, Until Discontinu ed, Routine, Nausea and Vomiting (N/V), PACU [facility] mupirocin (BACTROBAN OINT) 2 % skin ointment 2019-08 14:20: 00 Yes Intra-op [facility] lactated ringers IV infusion 500 mL 2019-08 13:30: 00 06-03 12:37 :00 No 500mL at 999 mL/hr, 500 mL, IV Infusion, ONCE, 1 dose, Wed06/03/20 at 0830, Routine [facility] sodium chloride 0.9 % irrigation solution 2019-08 13:28: 00 Yes PRN, Starting Wed06/03/20 at 0828, Until Discontinu ed, Intra-op [facility] sodium citrate-cit rach acid (BICITRA) 500-334 mg/5 mL solution 30 mL 2019-08 12:23: 52 06-03 12:36 :00 No 30mL 30 mL, Oral, PRE-PROCED URE ONCE, 1 dose, Starting Wed06/03/20 at 0723, Until Wed06/03/20 at 0736, Routine, Surgery [facility] PNV 102-iron-fo late 1-dss-dha 90 mg iron-1 mg -50 mg-200 mg Cap 2020-0 4-20 14:01: 37 Yes Take by mouth. [facility] albuterol 90 mcg/actuati on inhaler 2019-0 4-20 00:00: 00 06-04 00:00 :00 No [id number] 2{puff} Inhale 2 Puffs every 6 (six) hours as needed for Wheezing, Shortness of Breath, Bronchospa sm or Chest tightness. [facility] Immunizations Ordered Immunization Name Filled Immunization Name Date Status Comments Source TDAP 2023-03-24 00:00:00 Completed [facility] TDAP 2023-03-24 00:00:00 Completed [facility] TDAP 2023-03-24 00:00:00 Completed [facility] TDAP 2023-03-24 00:00:00 Completed [facility] TDAP 2023-03-24 00:00:00 Completed [facility] TDAP 2023-03-24 00:00:00 Completed [facility] TDAP 2023-03-24 00:00:00 Completed [facility] SARS-COV-2 COVID-19 PFIZER VACCINE 2020-12-07 00:00:00 Completed [facility] SARS-COV-2 COVID-19 PFIZER VACCINE 2020-12-07 00:00:00 Completed [facility] SARS-COV-2 COVID-19 PFIZER VACCINE 2020-12-07 00:00:00 Completed [facility] SARS-COV-2 COVID-19 PFIZER VACCINE 2020-12-07 00:00:00 Completed [facility] SARS-COV-2 COVID-19 PFIZER VACCINE 2020-12-07 00:00:00 Completed [facility] SARS-COV-2 COVID-19 PFIZER VACCINE 2020-12-07 00:00:00 Completed [facility] SARS-COV-2 COVID-19 PFIZER VACCINE 2020-12-07 00:00:00 Completed [facility] SARS-COV-2 COVID-19 PFIZER VACCINE 2020-12-07 00:00:00 Completed [facility] SARS-COV-2 COVID-19 PFIZER VACCINE 2020-12-07 00:00:00 Completed [facility] SARS-COV-2 COVID-19 PFIZER VACCINE 2020-12-07 00:00:00 Completed [facility] SARS-COV-2 COVID-19 PFIZER VACCINE 2020-12-07 00:00:00 Completed [facility] SARS-COV-2 COVID-19 PFIZER VACCINE 2020-12-07 00:00:00 Completed [facility] SARS-COV-2 COVID-19 PFIZER VACCINE 2020-12-07 00:00:00 Completed [facility] SARS-COV-2 COVID-19 PFIZER VACCINE 2020-12-07 00:00:00 Completed [facility] SARS-COV-2 COVID-19 PFIZER VACCINE 2020-12-07 00:00:00 Completed [facility] SARS-COV-2 COVID-19 PFIZER VACCINE 2020-12-07 00:00:00 Completed [facility] SARS-COV-2 COVID-19 PFIZER VACCINE 2020-12-07 00:00:00 Completed [facility] SARS-COV-2 COVID-19 PFIZER VACCINE 2020-12-07 00:00:00 Completed [facility] SARS-COV-2 COVID-19 PFIZER VACCINE 2020-12-07 00:00:00 Completed [facility] [facility] SARS-COV-2 COVID-19 PFIZER VACCINE 2020-12-07 00:00:00 Completed [facility] SARS-COV-2 COVID-19 PFIZER VACCINE 2020-12-07 00:00:00 Completed [facility] SARS-COV-2 COVID-19 PFIZER VACCINE 2020-12-07 00:00:00 Completed [facility] SARS-COV-2 COVID-19 PFIZER VACCINE 2020-12-07 00:00:00 Completed [facility] SARS-COV-2 COVID-19 PFIZER VACCINE 2020-11-16 00:00:00 Completed [facility] SARS-COV-2 COVID-19 PFIZER VACCINE 2020-11-16 00:00:00 Completed [facility] SARS-COV-2 COVID-19 PFIZER VACCINE 2020-11-16 00:00:00 Completed [facility] SARS-COV-2 COVID-19 PFIZER VACCINE 2020-11-16 00:00:00 Completed [facility] SARS-COV-2 COVID-19 PFIZER VACCINE 2020-11-16 00:00:00 Completed [facility] SARS-COV-2 COVID-19 PFIZER VACCINE 2020-11-16 00:00:00 Completed [facility] SARS-COV-2 COVID-19 PFIZER VACCINE 2020-11-16 00:00:00 Completed [facility] SARS-COV-2 COVID-19 PFIZER VACCINE 2020-11-16 00:00:00 Completed [facility] SARS-COV-2 COVID-19 PFIZER VACCINE 2020-11-16 00:00:00 Completed [facility] SARS-COV-2 COVID-19 PFIZER VACCINE 2020-11-16 00:00:00 Completed [facility] SARS-COV-2 COVID-19 PFIZER VACCINE 2020-11-16 00:00:00 Completed [facility] SARS-COV-2 COVID-19 PFIZER VACCINE 2020-11-16 00:00:00 Completed [facility] SARS-COV-2 COVID-19 PFIZER VACCINE 2020-11-16 00:00:00 Completed [facility] SARS-COV-2 COVID-19 PFIZER VACCINE 2020-11-16 00:00:00 Completed [facility] SARS-COV-2 COVID-19 PFIZER VACCINE 2020-11-16 00:00:00 Completed [facility] SARS-COV-2 COVID-19 PFIZER VACCINE 2020-11-16 00:00:00 Completed [facility] SARS-COV-2 COVID-19 PFIZER VACCINE 2020-11-16 00:00:00 Completed [facility] SARS-COV-2 COVID-19 PFIZER VACCINE 2020-11-16 00:00:00 Completed [facility] SARS-COV-2 COVID-19 PFIZER VACCINE 2020-11-16 00:00:00 Completed [facility] SARS-COV-2 COVID-19 PFIZER VACCINE 2020-11-16 00:00:00 Completed [facility] SARS-COV-2 COVID-19 PFIZER VACCINE 2020-11-16 00:00:00 Completed [facility] SARS-COV-2 COVID-19 PFIZER VACCINE 2020-11-16 00:00:00 Completed [facility] SARS-COV-2 COVID-19 PFIZER VACCINE 2020-11-16 00:00:00 Completed [facility] SARS-COV-2 COVID-19 PFIZER VACCINE 2020-11-16 00:00:00 Completed [facility] Influenza Virus Vaccine Quad .5 mL IM 6+ MO (FLUZONE/FLULAVAL/F LUARIX) 2020-05-22 00:00:00 Completed [facility] Influenza Virus Vaccine Quad .5 mL IM 6+ MO (FLUZONE/FLULAVAL/F LUARIX) 2020-05-22 00:00:00 Completed [facility] Influenza Virus Vaccine Quad .5 mL IM 6+ MO (FLUZONE/FLULAVAL/F LUARIX) 2020-05-22 00:00:00 Completed [facility] Influenza Virus Vaccine Quad .5 mL IM 6+ MO (FLUZONE/FLULAVAL/F LUARIX) 2020-05-22 00:00:00 Completed [facility] Influenza Virus Vaccine Quad .5 mL IM 6+ MO 2020-05-22 00:00:00 Completed [facility] Influenza Virus Vaccine Quad .5 mL IM 6+ MO 2020-05-22 00:00:00 Completed [facility] Influenza Virus Vaccine Quad .5 mL IM 6+ MO 2020-05-22 00:00:00 Completed [facility] Influenza Virus Vaccine Quad .5 mL IM 6+ MO 2020-05-22 00:00:00 Completed [facility] Influenza Virus Vaccine Quad .5 mL IM 6+ MO 2020-05-22 00:00:00 Completed [facility] Influenza Virus Vaccine Quad .5 mL IM 6+ MO 2020-05-22 00:00:00 Completed [facility] Influenza Virus Vaccine Quad .5 mL IM 6+ MO 2020-05-22 00:00:00 Completed [facility] Influenza Virus Vaccine Quad .5 mL IM 6+ MO 2020-05-22 00:00:00 Completed [facility] Influenza Virus Vaccine Quad .5 mL IM 6+ MO 2020-05-22 00:00:00 Completed [facility] Influenza Virus Vaccine Quad .5 mL IM 6+ MO 2020-05-22 00:00:00 Completed [facility] Influenza Virus Vaccine Quad .5 mL IM 6+ MO 2020-05-22 00:00:00 Completed [facility] Influenza Virus Vaccine Quad .5 mL IM 6+ MO 2020-05-22 00:00:00 Completed [facility] Influenza Virus Vaccine Quad .5 mL IM 6+ MO 2020-05-22 00:00:00 Completed [facility] Influenza Virus Vaccine Quad .5 mL IM 6+ MO 2020-05-22 00:00:00 Completed [facility] Influenza Virus Vaccine Quad .5 mL IM 6+ MO 2020-05-22 00:00:00 Completed [facility] Influenza Virus Vaccine Quad .5 mL IM 6+ MO 2020-05-22 00:00:00 Completed [facility] Influenza Virus Vaccine Quad .5 mL IM 6+ MO 2020-05-22 00:00:00 Completed [facility] Influenza Virus Vaccine Quad .5 mL IM 6+ MO 2020-05-22 00:00:00 Completed [facility] Influenza Virus Vaccine Quad .5 mL IM 6+ MO 2020-05-22 00:00:00 Completed [facility] Influenza Virus Vaccine Quad .5 mL IM 6+ MO 2020-05-22 00:00:00 Completed [facility] Influenza Virus Vaccine Quad .5 mL IM 6+ MO 2020-05-22 00:00:00 Completed [facility] Influenza Virus Vaccine Quad .5 mL IM 6+ MO 2020-05-22 00:00:00 Completed [facility] Influenza Virus Vaccine Quad .5 mL IM 6+ MO 2020-05-22 00:00:00 Completed [facility] Influenza Virus Vaccine Quad .5 mL IM 6+ MO 2020-05-22 00:00:00 Completed [facility] Influenza Virus Vaccine Quad .5 mL IM 6+ MO 2020-05-22 00:00:00 Completed [facility] Influenza Virus Vaccine Quad .5 mL IM 6+ MO 2020-05-22 00:00:00 Completed [facility] Influenza Virus Vaccine Quad .5 mL IM 6+ MO 2020-05-22 00:00:00 Completed [facility] Influenza Virus Vaccine Quad .5 mL IM 6+ MO 2020-05-22 00:00:00 Completed [facility] Influenza Virus Vaccine Quad .5 mL IM 6+ MO 2020-05-22 00:00:00 Completed [facility] Influenza Virus Vaccine Quad .5 mL IM 6+ MO 2020-05-22 00:00:00 Completed [facility] Influenza Virus Vaccine Quad .5 mL IM 6+ MO 2020-05-22 00:00:00 Completed [facility] Influenza Virus Vaccine Quad .5 mL IM 6+ MO 2020-05-22 00:00:00 Completed [facility] Influenza Virus Vaccine Quad .5 mL IM 6+ MO 2020-05-22 00:00:00 Completed [facility] TDAP 2020-03-15 00:00:00 Completed [facility] TDAP 2020-03-15 00:00:00 Completed [facility] TDAP 2020-03-15 00:00:00 Completed [facility] TDAP 2020-03-15 00:00:00 Completed [facility] TDAP 2020-03-15 00:00:00 Completed [facility] TDAP 2020-03-15 00:00:00 Completed [facility] TDAP 2020-03-15 00:00:00 Completed [facility] TDAP 2020-03-15 00:00:00 Completed [facility] TDAP 2020-03-15 00:00:00 Completed [facility] TDAP 2020-03-15 00:00:00 Completed [facility] TDAP 2020-03-15 00:00:00 Completed [facility] TDAP 2020-03-15 00:00:00 Completed [facility] TDAP 2020-03-15 00:00:00 Completed [facility] TDAP 2020-03-15 00:00:00 Completed [facility] TDAP 2020-03-15 00:00:00 Completed [facility] TDAP 2020-03-15 00:00:00 Completed [facility] TDAP 2020-03-15 00:00:00 Completed [facility] TDAP 2020-03-15 00:00:00 Completed [facility] TDAP 2020-03-15 00:00:00 Completed [facility] TDAP 2020-03-15 00:00:00 Completed [facility] TDAP 2020-03-15 00:00:00 Completed [facility] TDAP 2020-03-15 00:00:00 Completed [facility] TDAP 2020-03-15 00:00:00 Completed [facility] TDAP 2020-03-15 00:00:00 Completed [facility] TDAP 2020-03-15 00:00:00 Completed [facility] TDAP 2020-03-15 00:00:00 Completed [facility] TDAP 2020-03-15 00:00:00 Completed [facility] TDAP 2020-03-15 00:00:00 Completed [facility] TDAP 2020-03-15 00:00:00 Completed [facility] TDAP 2020-03-15 00:00:00 Completed [facility] TDAP 2020-03-15 00:00:00 Completed [facility] TDAP 2020-03-15 00:00:00 Completed [facility] TDAP 2020-03-15 00:00:00 Completed [facility] TDAP 2020-03-15 00:00:00 Completed [facility] TDAP 2020-03-15 00:00:00 Completed [facility] TDAP 2020-03-15 00:00:00 Completed [facility] TDAP 2020-03-15 00:00:00 Completed [facility] TDAP 2020-03-15 00:00:00 Completed [facility] TDAP 2020-03-15 00:00:00 Completed [facility] TDAP 2020-03-15 00:00:00 Completed [facility] TDAP 2020-03-15 00:00:00 Completed [facility] TDAP 2020-03-15 00:00:00 Completed [facility] TDAP 2020-03-15 00:00:00 Completed [facility] TDAP 2020-03-15 00:00:00 Completed [facility] TDAP 2020-03-15 00:00:00 Completed [facility] TDAP 2020-03-15 00:00:00 Completed [facility] TDAP 2020-03-15 00:00:00 Completed [facility] TDAP Unknown Completed [facility] Influenza Virus Vaccine Quad .5 mL IM 6+ MO (FLUZONE/FLULAVAL/F LUARIX) Unknown Completed [facility] SARS-COV-2 COVID-19 PFIZER VACCINE Unknown Completed [facility] TDAP Unknown Completed [facility] Influenza Virus Vaccine Quad .5 mL IM 6+ MO (FLUZONE/FLULAVAL/F LUARIX) Unknown Completed [facility] SARS-COV-2 COVID-19 PFIZER VACCINE Unknown Completed [facility] TDAP Unknown Completed [facility] Influenza Virus Vaccine Quad .5 mL IM 6+ MO (FLUZONE/FLULAVAL/F LUARIX) Unknown Completed [facility] SARS-COV-2 COVID-19 PFIZER VACCINE Unknown Completed [facility] Influenza Virus Vaccine Quad IM, Preserv and ABX Free 6 MO-64 YRS (FLUCELVAX) Unknown Completed [facility] TDAP Unknown Completed [facility] Influenza Virus Vaccine Quad .5 mL IM 6+ MO (FLUZONE/FLULAVAL/F LUARIX) Unknown Completed [facility] SARS-COV-2 COVID-19 PFIZER VACCINE Unknown Completed [facility] Influenza Virus Vaccine Quad IM, Preserv and ABX Free 6 MO-64 YRS (FLUCELVAX) Unknown Completed [facility] TDAP Unknown Completed [facility] Influenza Virus Vaccine Quad .5 mL IM 6+ MO (FLUZONE/FLULAVAL/F LUARIX) Unknown Completed [facility] SARS-COV-2 COVID-19 PFIZER VACCINE Unknown Completed [facility] Influenza Virus Vaccine Quad IM, Preserv and ABX Free 6 MO-64 YRS (FLUCELVAX) Unknown Completed [facility] TDAP Unknown Completed [facility] Influenza Virus Vaccine Quad .5 mL IM 6+ MO (FLUZONE/FLULAVAL/F LUARIX) Unknown Completed [facility] SARS-COV-2 COVID-19 PFIZER VACCINE Unknown Completed [facility] Influenza Virus Vaccine Quad IM, Preserv and ABX Free 6 MO-64 YRS (FLUCELVAX) Unknown Completed [facility] TDAP Unknown Completed [facility] Influenza Virus Vaccine Quad .5 mL IM 6+ MO (FLUZONE/FLULAVAL/F LUARIX) Unknown Completed [facility] SARS-COV-2 COVID-19 PFIZER VACCINE Unknown Completed [facility] Influenza Virus Vaccine Quad IM, Preserv and ABX Free 6 MO-64 YRS (FLUCELVAX) Unknown Completed [facility] TDAP Unknown Completed [facility] Influenza Virus Vaccine Quad .5 mL IM 6+ MO (FLUZONE/FLULAVAL/F LUARIX) Unknown Completed [facility] SARS-COV-2 COVID-19 PFIZER VACCINE Unknown Completed [facility] Influenza Virus Vaccine Quad IM, Preserv and ABX Free 6 MO-64 YRS (FLUCELVAX) Unknown Completed [facility] TDAP Unknown Completed [facility] Influenza Virus Vaccine Quad .5 mL IM 6+ MO (FLUZONE/FLULAVAL/F LUARIX) Unknown Completed [facility] SARS-COV-2 COVID-19 PFIZER VACCINE Unknown Completed [facility] Influenza Virus Vaccine Quad IM, Preserv and ABX Free 6 MO-64 YRS (FLUCELVAX) Unknown Completed [facility] TDAP Unknown Completed [facility] Influenza Virus Vaccine Quad .5 mL IM 6+ MO (FLUZONE/FLULAVAL/F LUARIX) Unknown Completed [facility] SARS-COV-2 COVID-19 PFIZER VACCINE Unknown Completed [facility] Influenza Virus Vaccine Quad IM, Preserv and ABX Free 6 MO-64 YRS (FLUCELVAX) Unknown Completed [facility] TDAP Unknown Completed [facility] Influenza Virus Vaccine Quad .5 mL IM 6+ MO (FLUZONE/FLULAVAL/F LUARIX) Unknown Completed [facility] SARS-COV-2 COVID-19 PFIZER VACCINE Unknown Completed [facility] Influenza Virus Vaccine Quad IM, Preserv and ABX Free 6 MO-64 YRS (FLUCELVAX) Unknown Completed [facility] TDAP Unknown Completed [facility] Influenza Virus Vaccine Quad .5 mL IM 6+ MO (FLUZONE/FLULAVAL/F LUARIX) Unknown Completed [facility] SARS-COV-2 COVID-19 PFIZER VACCINE Unknown Completed [facility] Influenza Virus Vaccine Quad IM, Preserv and ABX Free 6 MO-64 YRS (FLUCELVAX) Unknown Completed [facility] TDAP Unknown Completed [facility] Influenza Virus Vaccine Quad .5 mL IM 6+ MO (FLUZONE/FLULAVAL/F LUARIX) Unknown Completed [facility] SARS-COV-2 COVID-19 PFIZER VACCINE Unknown Completed [facility] Influenza Virus Vaccine Quad IM, Preserv and ABX Free 6 MO-64 YRS (FLUCELVAX) Unknown Completed [facility] TDAP Unknown Completed [facility] Influenza Virus Vaccine Quad .5 mL IM 6+ MO (FLUZONE/FLULAVAL/F LUARIX) Unknown Completed [facility] SARS-COV-2 COVID-19 PFIZER VACCINE Unknown Completed [facility] Influenza Virus Vaccine Quad IM, Preserv and ABX Free 6 MO-64 YRS (FLUCELVAX) Unknown Completed [facility] TDAP Unknown Completed [facility] Influenza Virus Vaccine Quad .5 mL IM 6+ MO (FLUZONE/FLULAVAL/F LUARIX) Unknown Completed [facility] SARS-COV-2 COVID-19 PFIZER VACCINE Unknown Completed [facility] Influenza Virus Vaccine Quad IM, Preserv and ABX Free 6 MO-64 YRS (FLUCELVAX) Unknown Completed [facility] TDAP Unknown Completed [facility] Influenza Virus Vaccine Quad .5 mL IM 6+ MO (FLUZONE/FLULAVAL/F LUARIX) Unknown Completed [facility] SARS-COV-2 COVID-19 PFIZER VACCINE Unknown Completed [facility] Influenza Virus Vaccine Quad IM, Preserv and ABX Free 6 MO-64 YRS (FLUCELVAX) Unknown Completed [facility] TDAP Unknown Completed [facility] Influenza Virus Vaccine Quad .5 mL IM 6+ MO (FLUZONE/FLULAVAL/F LUARIX) Unknown Completed [facility] SARS-COV-2 COVID-19 PFIZER VACCINE Unknown Completed [facility] Influenza Virus Vaccine Quad IM, Preserv and ABX Free 6 MO-64 YRS (FLUCELVAX) Unknown Completed [facility] TDAP Unknown Completed [facility] Influenza Virus Vaccine Quad .5 mL IM 6+ MO (FLUZONE/FLULAVAL/F LUARIX) Unknown Completed [facility] SARS-COV-2 COVID-19 PFIZER VACCINE Unknown Completed [facility] Influenza Virus Vaccine Quad IM, Preserv and ABX Free 6 MO-64 YRS (FLUCELVAX) Unknown Completed [facility] TDAP Unknown Completed [facility] Influenza Virus Vaccine Quad .5 mL IM 6+ MO (FLUZONE/FLULAVAL/F LUARIX) Unknown Completed [facility] SARS-COV-2 COVID-19 PFIZER VACCINE Unknown Completed [facility] Influenza Virus Vaccine Quad IM, Preserv and ABX Free 6 MO-64 YRS (FLUCELVAX) Unknown Completed [facility] TDAP Unknown Completed [facility] Influenza Virus Vaccine Quad .5 mL IM 6+ MO (FLUZONE/FLULAVAL/F LUARIX) Unknown Completed [facility] SARS-COV-2 COVID-19 PFIZER VACCINE Unknown Completed [facility] Influenza Virus Vaccine Quad IM, Preserv and ABX Free 6 MO-64 YRS (FLUCELVAX) Unknown Completed [facility] TDAP Unknown Completed [facility] Influenza Virus Vaccine Quad .5 mL IM 6+ MO (FLUZONE/FLULAVAL/F LUARIX) Unknown Completed [facility] SARS-COV-2 COVID-19 PFIZER VACCINE Unknown Completed [facility] Influenza Virus Vaccine Quad IM, Preserv and ABX Free 6 MO-64 YRS (FLUCELVAX) Unknown Completed [facility] TDAP Unknown Completed [facility] Influenza Virus Vaccine Quad .5 mL IM 6+ MO (FLUZONE/FLULAVAL/F LUARIX) Unknown Completed [facility] SARS-COV-2 COVID-19 PFIZER VACCINE Unknown Completed [facility] Influenza Virus Vaccine Quad IM, Preserv and ABX Free 6 MO-64 YRS (FLUCELVAX) Unknown Completed [facility] TDAP Unknown Completed [facility] Influenza Virus Vaccine Quad .5 mL IM 6+ MO (FLUZONE/FLULAVAL/F LUARIX) Unknown Completed [facility] SARS-COV-2 COVID-19 PFIZER VACCINE Unknown Completed [facility] Influenza Virus Vaccine Quad IM, Preserv and ABX Free 6 MO-64 YRS (FLUCELVAX) Unknown Completed [facility] TDAP Unknown Completed [facility] Influenza Virus Vaccine Quad .5 mL IM 6+ MO (FLUZONE/FLULAVAL/F LUARIX) Unknown Completed [facility] SARS-COV-2 COVID-19 PFIZER VACCINE Unknown Completed [facility] Influenza Virus Vaccine Quad IM, Preserv and ABX Free 6 MO-64 YRS (FLUCELVAX) Unknown Completed [facility] Vital Signs Vital Name Observation Time Observation Value Comments Lesa corona Systolic blood pressure 2023-10-11 16:51:00 150 mm[Hg] [facility] Diastolic blood pressure 2023-10-11 16:51:00 87 mm[Hg] [facility] Heart rate 2023-10-11 16:03:00 73 /min [facility] Body temperature 2023-10-11 16:03:00 36.39 Steffanie [facility] Body height 2023-10-11 16:03:00 167.6 cm [facility] Body weight 2023-10-11 16:03:00 111.585 kg [facility] BMI 2023-10-11 16:03:00 39.71 kg/m2 [facility] Oxygen saturation in Arterial blood by Pulse oximetry 2023-10-11 16:03:00 100 /min [facility] Systolic blood pressure 2023-07-16 15:53:00 146 mm[Hg] [facility] Diastolic blood pressure 2023-07-16 15:53:00 94 mm[Hg] [facility] Heart rate 2023-07-16 15:39:00 71 /min [facility] Body temperature 2023-07-16 15:39:00 36.5 Steffanie [facility] Respiratory rate 2023-07-16 15:39:00 18 /min [facility] Body height 2023-07-16 15:39:00 165.1 cm [facility] Body weight 2023-07-16 15:39:00 108.41 kg [facility] BMI 2023-07-16 15:39:00 39.77 kg/m2 [facility] Systolic blood pressure 2023-06-22 17:23:00 120 mm[Hg] [facility] Diastolic blood pressure 2023-06-22 17:23:00 69 mm[Hg] [facility] Heart rate 2023-06-22 17:22:00 67 /min [facility] Body temperature 2023-06-22 17:22:00 36.67 Steffanie [facility] Respiratory rate 2023-06-22 17:22:00 17 /min [facility] Body height 2023-06-22 17:22:00 165.1 cm [facility] Body weight 2023-06-22 17:22:00 107.775 kg [facility] BMI 2023-06-22 17:22:00 39.54 kg/m2 [facility] Systolic blood pressure 2023-06-01 15:19:00 130 mm[Hg] [facility] Diastolic blood pressure 2023-06-01 15:19:00 84 mm[Hg] [facility] Heart rate 2023-06-01 15:19:00 83 /min [facility] Body temperature 2023-06-01 15:19:00 36.78 Steffanie [facility] Respiratory rate 2023-06-01 15:19:00 18 /min [facility] Body height 2023-06-01 15:19:00 167.6 cm [facility] [facility] 2023-06-01 15:19:00 108.863 kg [facility] BMI 2023-06-01 15:19:00 38.74 kg/m2 [facility] Systolic blood pressure 2023-05-26 21:30:00 125 mm[Hg] [facility] Diastolic blood pressure 2023-05-26 21:30:00 75 mm[Hg] [facility] Heart rate 2023-05-26 21:30:00 73 /min [facility] Body temperature 2023-05-26 21:30:00 36.39 Steffanie [facility] Respiratory rate 2023-05-26 21:30:00 18 /min [facility] Oxygen saturation in Arterial blood by Pulse oximetry 2023-05-26 21:30:00 99 /min [facility] Body height 2023-05-25 11:15:00 167.6 cm [facility] Body weight 2023-05-25 11:15:00 116.484 kg [facility] BMI 2023-05-25 11:15:00 41.45 kg/m2 [facility] Heart rate 2023-05-25 15:00:00 67 /min [facility] Oxygen saturation in Arterial blood by Pulse oximetry 2023-05-25 15:00:00 100 /min [facility] Systolic blood pressure 2023-05-25 13:00:00 134 mm[Hg] [facility] Diastolic blood pressure 2023-05-25 13:00:00 82 mm[Hg] [facility] Body temperature 2023-05-25 11:15:00 36.78 Steffanie [facility] Respiratory rate 2023-05-25 11:15:00 16 /min [facility] Body height 2023-05-25 11:15:00 167.6 cm [facility] Body weight 2023-05-25 11:15:00 116.484 kg [facility] BMI 2023-05-25 11:15:00 41.45 kg/m2 [facility] Respiratory rate 2023-05-25 14:44:00 15 /min [facility] Systolic blood pressure 2023-05-21 15:16:00 122 mm[Hg] [facility] Diastolic blood pressure 2023-05-21 15:16:00 77 mm[Hg] [facility] Heart rate 2023-05-21 15:16:00 74 /min [facility] Body temperature 2023-05-21 15:16:00 36.61 Steffanie [facility] Body height 2023-05-21 15:16:00 167.6 cm [facility] Body weight 2023-05-21 15:16:00 117.663 kg [facility] BMI 2023-05-21 15:16:00 41.87 kg/m2 [facility] Systolic blood pressure 2023-05-19 13:56:00 124 mm[Hg] [facility] Diastolic blood pressure 2023-05-19 13:56:00 81 mm[Hg] [facility] Heart rate 2023-05-19 13:56:00 116 /min [facility] 2023-05-19 13:56:00 36.61 Steffanie [facility] Respiratory rate 2023-05-19 13:56:00 16 /min [facility] Body height 2023-05-19 13:56:00 167.6 cm [facility] 2023-05-19 13:56:00 116.574 kg [facility] 2023-05-19 13:56:00 41.48 kg/m2 [facility] Sy[facility] pressure 2023-05-17 16:04:00 127 mm[Hg] [facility] Diastolic blood pressure 2023-05-17 16:04:00 81 mm[Hg] [facility] Heart rate 2023-05-17 16:04:00 80 /min [facility] Body temperature 2023-05-17 16:04:00 36.78 Steffanie [facility] Body height 2023-05-17 16:04:00 167.6 cm [facility] Body weight 2023-05-17 16:04:00 117.028 kg [facility] BMI 2023-05-17 16:04:00 41.64 kg/m2 [facility] Systolic blood pressure 2023-05-12 14:14:00 115 mm[Hg] [facility] Diastolic blood pressure 2023-05-12 14:14:00 80 mm[Hg] [facility] Heart rate 2023-05-12 14:14:00 123 /min [facility] Body temperature 2023-05-12 14:14:00 36.28 Steffanie [facility] Respiratory rate 2023-05-12 14:14:00 16 /min [facility] Body height 2023-05-12 14:14:00 167.6 cm [facility] Body weight 2023-05-12 14:14:00 116.121 kg [facility] BMI 2023-05-12 14:14:00 41.32 kg/m2 [facility] Sy[facility] pressure 2023-05-05 13:42:00 119 mm[Hg] [facility] Diastolic blood pressure 2023-05-05 13:42:00 80 mm[Hg] [facility] Heart rate 2023-05-05 13:42:00 88 /min [facility] Body temperature 2023-05-05 13:42:00 36.83 Steffanie [facility] Respiratory rate 2023-05-05 13:42:00 16 /min [facility] Body height 2023-05-05 13:42:00 167.6 cm [facility] Body weight 2023-05-05 13:42:00 115.577 kg [facility] BMI 2023-05-05 13:42:00 41.13 kg/m2 [facility] Systolic blood pressure 2023-04-28 15:09:00 109 mm[Hg] [facility] Diastolic blood pressure 2023-04-28 15:09:00 73 mm[Hg] [facility] Heart rate 2023-04-28 15:09:00 85 /min [facility] Respiratory rate 2023-04-28 15:09:00 18 /min [facility] Body height 2023-04-28 15:09:00 167.6 cm [facility] Body weight 2023-04-28 15:09:00 116.574 kg [facility] BMI 2023-04-28 15:09:00 41.48 kg/m2 [facility] Systolic blood pressure 2023-04-21 15:08:00 109 mm[Hg] [facility] Diastolic blood pressure 2023-04-21 15:08:00 71 mm[Hg] [facility] Heart rate 2023-04-21 15:08:00 91 /min [facility] Body temperature 2023-04-21 15:08:00 36.72 Steffanie [facility] Respiratory rate 2023-04-21 15:08:00 18 /min [facility] Body height 2023-04-21 15:08:00 167.6 cm [facility] Body weight 2023-04-21 15:08:00 114.941 kg [facility] BMI 2023-04-21 15:08:00 40.90 kg/m2 [facility] Systolic blood pressure 2023-04-19 18:57:00 116 mm[Hg] [facility] Diastolic blood pressure 2023-04-19 18:57:00 72 mm[Hg] [facility] Heart rate 2023-04-19 18:57:00 88 /min [facility] Body temperature 2023-04-19 18:57:00 36.83 Steffanie [facility] Respiratory rate 2023-04-19 18:57:00 16 /min [facility] Body height 2023-04-19 18:57:00 167.6 cm [facility] Body weight 2023-04-19 18:57:00 114.17 kg [facility] BMI 2023-04-19 18:57:00 40.63 kg/m2 [facility] Oxygen saturation in Arterial blood by Pulse oximetry 2023-04-19 18:57:00 97 /min [facility] Diastolic blood pressure 2023-04-07 15:33:00 73 mm[Hg] [facility] Heart rate 2023-04-07 15:33:00 79 /min [facility] Body temperature 2023-04-07 15:33:00 36.78 Steffanie [facility] Respiratory rate 2023-04-07 15:33:00 17 /min [facility] Body height 2023-04-07 15:33:00 167.6 cm [facility] Body weight 2023-04-07 15:33:00 116.121 kg [facility] BMI 2023-04-07 15:33:00 41.32 kg/m2 [facility] Systolic blood pressure 2023-04-07 15:33:00 116 mm[Hg] [facility] Systolic blood pressure 2023-03-24 19:56:00 117 mm[Hg] [facility] Diastolic blood pressure 2023-03-24 19:56:00 74 mm[Hg] [facility] Heart rate 2023-03-24 19:56:00 79 /min [facility] Body temperature 2023-03-24 19:56:00 36.67 Steffanie [facility] Respiratory rate 2023-03-24 19:56:00 18 /min [facility] Body height 2023-03-24 19:56:00 167.6 cm [facility] Body weight 2023-03-24 19:56:00 116.257 kg [facility] BMI 2023-03-24 19:56:00 41.37 kg/m2 [facility] Systolic blood pressure 2023-03-10 21:00:00 114 mm[Hg] [facility] Diastolic blood pressure 2023-03-10 21:00:00 73 mm[Hg] [facility] Heart rate 2023-03-10 21:00:00 77 /min [facility] Body temperature 2023-03-10 21:00:00 36.94 Steffanie [facility] Respiratory rate 2023-03-10 21:00:00 16 /min [facility] Body height 2023-03-10 21:00:00 167.6 cm [facility] Body weight 2023-03-10 21:00:00 115.032 kg [facility] BMI 2023-03-10 21:00:00 40.93 kg/m2 [facility] Oxygen saturation in Arterial blood by Pulse oximetry 2023-03-10 21:00:00 98 /min [facility] Systolic blood pressure 2023-02-17 17:55:00 126 mm[Hg] [facility] Diastolic blood pressure 2023-02-17 17:55:00 79 mm[Hg] [facility] Heart rate 2023-02-17 17:55:00 75 /min [facility] Body temperature 2023-02-17 17:55:00 37 Steffanie [facility] Respiratory rate 2023-02-17 17:55:00 16 /min [facility] Body height 2023-02-17 17:55:00 167.6 cm [facility] Body weight 2023-02-17 17:55:00 111.993 kg [facility] BMI 2023-02-17 17:55:00 39.85 kg/m2 [facility] Oxygen saturation in Arterial blood by Pulse oximetry 2023-02-17 17:55:00 98 /min [facility] Systolic blood pressure 2023-01-20 21:04:00 116 mm[Hg] [facility] Diastolic blood pressure 2023-01-20 21:04:00 72 mm[Hg] [facility] Heart rate 2023-01-20 21:04:00 79 /min [facility] Body temperature 2023-01-20 21:04:00 37 Steffanie [facility] Respiratory rate 2023-01-20 21:04:00 16 /min [facility] Body height 2023-01-20 21:04:00 167.6 cm [facility] Body weight 2023-01-20 21:04:00 109.907 kg [facility] BMI 2023-01-20 21:04:00 39.11 kg/m2 [facility] Oxygen saturation in Arterial blood by Pulse oximetry 2023-01-20 21:04:00 98 /min [facility] Systolic blood pressure 2022-12-23 15:06:00 118 mm[Hg] [facility] Diastolic blood pressure 2022-12-23 15:06:00 76 mm[Hg] [facility] Heart rate 2022-12-23 15:06:00 77 /min [facility] Respiratory rate 2022-12-23 15:06:00 18 /min [facility] Body height 2022-12-23 15:06:00 167.6 cm [facility] Body weight 2022-12-23 15:06:00 105.688 kg [facility] BMI 2022-12-23 15:06:00 37.61 kg/m2 [facility] Systolic blood pressure 2022-11-25 16:19:00 116 mm[Hg] [facility] Diastolic blood pressure 2022-11-25 16:19:00 77 mm[Hg] [facility] Heart rate 2022-11-25 16:19:00 72 /min [facility] Respiratory rate 2022-11-25 16:19:00 18 /min [facility] Body height 2022-11-25 16:19:00 167.6 cm [facility] Body weight 2022-11-25 16:19:00 103.874 kg [facility] BMI 2022-11-25 16:19:00 36.96 kg/m2 [facility] Systolic blood pressure 2022-10-27 19:07:00 121 mm[Hg] [facility] Diastolic blood pressure 2022-10-27 19:07:00 81 mm[Hg] [facility] Heart rate 2022-10-27 19:07:00 71 /min [facility] Respiratory rate 2022-10-27 19:07:00 18 /min [facility] Body height 2022-10-27 19:07:00 167.6 cm [facility] Body weight 2022-10-27 19:07:00 103.42 kg [facility] BMI 2022-10-27 19:07:00 36.80 kg/m2 [facility] Systolic blood pressure 2020-07-02 17:17:00 132 mm[Hg] [facility] Diastolic blood pressure 2020-07-02 17:17:00 88 mm[Hg] [facility] Heart rate 2020-07-02 17:17:00 57 /min [facility] Body temperature 2020-07-02 17:17:00 36.83 Steffanie [facility] Respiratory rate 2020-07-02 17:17:00 18 /min [facility] Body height 2020-07-02 17:17:00 167.6 cm [facility] Body weight 2020-07-02 17:17:00 111.585 kg [facility] BMI 2020-07-02 17:17:00 39.71 kg/m2 [facility] Systolic blood pressure 2020-07-02 17:17:00 132 mm[Hg] [facility] Diastolic blood pressure 2020-07-02 17:17:00 88 mm[Hg] [facility] Heart rate 2020-07-02 17:17:00 57 /min [facility] Body temperature 2020-07-02 17:17:00 36.83 Steffanie [facility] Respiratory rate 2020-07-02 17:17:00 18 /min [facility] Body height 2020-07-02 17:17:00 167.6 cm [facility] Body weight 2020-07-02 17:17:00 111.585 kg [facility] BMI 2020-07-02 17:17:00 39.71 kg/m2 [facility] Systolic blood pressure 2020-06-11 20:35:00 108 mm[Hg] [facility] Diastolic blood pressure 2020-06-11 20:35:00 70 mm[Hg] [facility] Heart rate 2020-06-11 20:35:00 67 /min [facility] Body temperature 2020-06-11 20:35:00 36.72 Steffanie [facility] Respiratory rate 2020-06-11 20:35:00 18 /min [facility] Body height 2020-06-11 20:35:00 167.6 cm [facility] Body weight 2020-06-11 20:35:00 111.676 kg [facility] BMI 2020-06-11 20:35:00 39.74 kg/m2 [facility] Systolic blood pressure 2020-06-11 20:35:00 108 mm[Hg] [facility] Diastolic blood pressure 2020-06-11 20:35:00 70 mm[Hg] [facility] Heart rate 2020-06-11 20:35:00 67 /min [facility] Body temperature 2020-06-11 20:35:00 36.72 Steffanie [facility] Respiratory rate 2020-06-11 20:35:00 18 /min [facility] Body height 2020-06-11 20:35:00 167.6 cm [facility] Body weight 2020-06-11 20:35:00 111.676 kg [facility] BMI 2020-06-11 20:35:00 39.74 kg/m2 [facility] Systolic blood pressure 2020-06-04 22:30:00 121 mm[Hg] [facility] Diastolic blood pressure 2020-06-04 22:30:00 67 mm[Hg] [facility] Heart rate 2020-06-04 22:30:00 68 /min [facility] Body temperature 2020-06-04 22:30:00 37 Steffanie [facility] Respiratory rate 2020-06-04 22:30:00 18 /min [facility] Oxygen saturation in Arterial blood by Pulse oximetry 2020-06-04 22:30:00 97 /min [facility] Body height 2020-06-03 11:00:00 167.6 cm [facility] Body weight 2020-06-03 11:00:00 117.391 kg [facility] BMI 2020-06-03 11:00:00 41.79 kg/m2 [facility] Systolic blood pressure 2020-06-04 22:30:00 121 mm[Hg] [facility] Diastolic blood pressure 2020-06-04 22:30:00 67 mm[Hg] [facility] Heart rate 2020-06-04 22:30:00 68 /min [facility] Body temperature 2020-06-04 22:30:00 37 Steffanie [facility] Respiratory rate 2020-06-04 22:30:00 18 /min [facility] Oxygen saturation in Arterial blood by Pulse oximetry 2020-06-04 22:30:00 97 /min [facility] Body height 2020-06-03 11:00:00 167.6 cm [facility] Body weight 2020-06-03 11:00:00 117.391 kg [facility] BMI 2020-06-03 11:00:00 41.79 kg/m2 [facility] Systolic blood pressure 2020-05-28 21:25:00 113 mm[Hg] [facility] Diastolic blood pressure 2020-05-28 21:25:00 75 mm[Hg] [facility] Heart rate 2020-05-28 21:25:00 73 /min [facility] Body temperature 2020-05-28 21:25:00 36.89 Steffanie [facility] Respiratory rate 2020-05-28 21:25:00 18 /min [facility] Body height 2020-05-28 21:25:00 167.6 cm [facility] Body weight 2020-05-28 21:25:00 118.389 kg [facility] BMI 2020-05-28 21:25:00 42.13 kg/m2 [facility] Systolic blood pressure 2020-05-28 21:25:00 113 mm[Hg] [facility] Diastolic blood pressure 2020-05-28 21:25:00 75 mm[Hg] [facility] Heart rate 2020-05-28 21:25:00 73 /min [facility] Body temperature 2020-05-28 21:25:00 36.89 Steffanie [facility] Respiratory rate 2020-05-28 21:25:00 18 /min [facility] Body height 2020-05-28 21:25:00 167.6 cm [facility] Body weight 2020-05-28 21:25:00 118.389 kg [facility] BMI 2020-05-28 21:25:00 42.13 kg/m2 [facility] Systolic blood pressure 2020-05-22 21:51:00 126 mm[Hg] [facility] Diastolic blood pressure 2020-05-22 21:51:00 85 mm[Hg] [facility] Heart rate 2020-05-22 21:51:00 77 /min [facility] Body temperature 2020-05-22 21:51:00 36.89 Steffanie [facility] Respiratory rate 2020-05-22 21:51:00 18 /min [facility] Body height 2020-05-22 21:51:00 167.6 cm [facility] Body weight 2020-05-22 21:51:00 117.935 kg [facility] BMI 2020-05-22 21:51:00 41.97 kg/m2 [facility] Systolic blood pressure 2020-05-06 21:31:00 127 mm[Hg] [facility] Diastolic blood pressure 2020-05-06 21:31:00 74 mm[Hg] [facility] Heart rate 2020-05-06 21:31:00 83 /min [facility] Body temperature 2020-05-06 21:31:00 37 Steffanie [facility] Respiratory rate 2020-05-06 21:31:00 18 /min [facility] Body height 2020-05-06 21:31:00 167.6 cm [facility] Body weight 2020-05-06 21:31:00 115.214 kg [facility] BMI 2020-05-06 21:31:00 41.00 kg/m2 [facility] Systolic blood pressure 2020-04-18 16:08:00 124 mm[Hg] [facility] Diastolic blood pressure 2020-04-18 16:08:00 73 mm[Hg] [facility] Heart rate 2020-04-18 16:08:00 82 /min [facility] Body temperature 2020-04-18 16:08:00 36.83 Steffanie [facility] Respiratory rate 2020-04-18 16:08:00 18 /min [facility] Body height 2020-04-18 16:08:00 167.6 cm [facility] Body weight 2020-04-18 16:08:00 114.034 kg [facility] BMI 2020-04-18 16:08:00 40.58 kg/m2 [facility] Systolic blood pressure 2020-04-05 19:30:00 113 mm[Hg] [facility] Diastolic blood pressure 2020-04-05 19:30:00 72 mm[Hg] [facility] Heart rate 2020-04-05 19:30:00 80 /min [facility] Body temperature 2020-04-05 19:30:00 36.78 Steffanie [facility] Respiratory rate 2020-04-05 19:30:00 18 /min [facility] Body height 2020-04-05 19:30:00 167.6 cm [facility] Body weight 2020-04-05 19:30:00 112.583 kg [facility] BMI 2020-04-05 19:30:00 40.06 kg/m2 [facility] Body weight 2020-03-15 14:13:00 109.77 kg [facility] BMI 2020-03-15 14:13:00 39.06 kg/m2 [facility] Systolic blood pressure 2020-03-15 14:13:00 117 mm[Hg] [facility] Diastolic blood pressure 2020-03-15 14:13:00 69 mm[Hg] [facility] Heart rate 2020-03-15 14:13:00 78 /min [facility] Body temperature 2020-03-15 14:13:00 36.89 Steffanie [facility] Respiratory rate 2020-03-15 14:13:00 18 /min [facility] Body height 2020-03-15 14:13:00 167.6 cm [facility] Procedures Procedure Date / Time Performed Performing Clinician Source PATIENT FINANCIAL RESPONSIBILITY - ALL FORMS 2023-10-11 06:01:00 Doctor Unassigned, Andres [facility] GLUCOSE FASTING 2023-05-26 11:17:00 [facility] 2023-05-26 11:17:00 Adum, Dolores Gomez [facility] CBC WITH DIFF 2023-05-26 08:11:00 Adum, Dolores Wyatte [facility] CBC WITH DIFF 2023-05-26 08:11:00 Adum, Dolores oDdson [facility] CENTRAL NEURAXIAL BLOCK 2023-05-25 13:15:00 Bill Cox [facility] SECTION 2023-05-25 12:49:00 Adum, [facility] 2023-05-25 12:49:00 Adum, Dolores Dodson [facility] SECTION 2023-05-25 12:49:00 Adum, [facility] 2023-05-25 12:49:00 [facility] 2023-05-25 11:25:00 Adum, Alice villalpandon Aiyana [facility] POCT GLUCOSE (AUTOMATED) 2023-05-25 11:25:00 Adum, Alice villalpandon Aiyana [facility] NON-STRESS TEST 2023-05-21 20:07:28 Adum, Dolores Bronson [facility] DISABILITY/FMLA 2023-05-21 05:01:00 Doctor Unass igned, Andres [facility] NON-STRESS TEST 2023-05-19 19:31:05 Adum, Dolores Bronson [facility] POCT URINALYSIS W/O SPECIFIC GRAVITY 2023-05-19 00:00:00 Adum, Dolores Bronson [facility] NON-STRESS TEST 2023-05-17 17:08:35 Kindra Griggs [facility] SECOND AND THIRD TRIMESTER ULTRASOUND 2023-05-17 14:46:00 Adum, Dolorse Bronson [facility] NON-STRESS TEST 2023-05-12 15:37:44 Adum, Dolores Bronson [facility] FLU VACC ([id number]), 6 MO-64 YRS, .5ML, IM, QUAD (FLUCELVAX) 2023-05-12 14:29:00 Adum, Dolores Bronson [facility] DSU PRE-OP 2023-05-12 05:01:00 Doctor Unass igned, Andres [facility] DSU PRE-OP 2023-05-12 05:01:00 Doctor Unass igned, Andres [facility] POCT URINALYSIS W/O SPECIFIC GRAVITY 2023-05-12 00:00:00 Adum, Dolores Bronson [facility] NON-STRESS TEST 2023-05-05 14:15:29 Adum, Dolores Aiyana [facility] POCT URINALYSIS W/O SPECIFIC GRAVITY 2023-05-05 00:00:00 Adum, Dolores Aiyana [facility] NON-STRESS TEST 2023-04-28 16:21:53 Adum, Dolores Aiyana [facility] POCT URINALYSIS W/O SPECIFIC GRAVITY 2023-04-28 00:00:00 Adum, Dolores Bronson [facility] NON-STRESS TEST 2023-04-21 16:10:10 Adum, Dolores [facility] POCT URINALYSIS W/O SPECIFIC GRAVITY 2023-04-21 00:00:00 Adum, Dolores [facility] MEDICAL RELEASE/CLEARANCE FORMS 2023-04-07 05:01:00 Doctor Unassigned, [facility] POCT URINALYSIS W/O SPECIFIC GRAVITY 2023-04-07 00:00:00 Adum, Dolores [facility] TDAP VACCINE, >11 YRS, IM 2023-03-24 20:07:43 Adum, Krista [facility] POCT URINALYSIS W/O SPECIFIC GRAVITY 2023-03-24 00:00:00 Adum, Dolores [facility] STERILIZATION CONSENT FORM 2023-03-10 05:01:00 Doctor Unassigned, [facility] POCT URINALYSIS W/O SPECIFIC GRAVITY 2023-03-10 00:00:00 Adum, Dolores [facility] POCT URINALYSIS W/O SPECIFIC GRAVITY 2023-02-17 00:00:00 Adum, Dolores [facility] POCT URINALYSIS W/O SPECIFIC GRAVITY 2023-01-20 00:00:00 Adum, Dolores [facility] POCT URINALYSIS W/O SPECIFIC GRAVITY 2022-12-23 00:00:00 Adum, Dolores [facility] SCANNED LAB RESULTS 2022-11-30 05:01:00 Doctor Marita thomason, [facility] POCT URINALYSIS W/O SPECIFIC GRAVITY 2022-11-25 00:00:00 Adum, Dolores [facility] US OB TRANSVAGINAL 2022-10-27 22:43:38 Adum, Dolores [facility] GC & CHLAMYDIA AMPLIFIED ASSAY 2022-10-27 20:07:00 Adum, Dolores [facility] HIGH RISK HPV-THIN PREP 2022-10-27 20:07:00 Adum, Marilee [facility] TRICHOMONAS AMPLIFIED ASSAY 2022-10-27 20:07:00 Adum, Dolores [facility] PAP SMEAR-LIQUID BASED-CP 2022-10-27 20:07:00 Adum, Krista [facility] CNC SUPERVISOR CLINIC ULTRASOUND 2022-10-27 05:01:00 Doc bryant Unassigned, [facility] POCT TEST 2022-10-27 00:00:00 Adum, Dolores [facility] POCT URINALYSIS W/O SPECIFIC GRAVITY 2022-10-27 00:00:00 Adum, Dolores [facility] CONSENT FOR ORAL CONTRACEPTIVES 2020-07-02 06:01:00 Doctor Unassigned, [facility] POCT TEST 2020-07-02 00:00:00 Jean [facility] DME/SUPPLY JUSTIFICATION 2020-06-14 06:01:00 Doc bryant Unassigned, [facility] CBC WITH DIFF 2020-06-04 09:08:00 Kindra Griggs [facility] VENOUS CORD GAS 2020-06-03 13:42:00 Kindra Griggs [facility] SECTION 2020-06-03 12:43:00 Kindra Griggs [facility] CBC WITH DIFF 2020-06-03 11:48:00 Kindra Griggs [facility] HEPATITIS B SURFACE ANTIGEN 2020-06-03 11:48:00 Kindra Griggs [facility] ADC OR RUPINDER ONLY - RPR 2020-06-03 11:48:00 Stephania Griggs [facility] HIV 1/2 AG-AB WITH REFLEX 2020-06-03 11:48:00 Stephania Griggs [facility] HB ABO GROUPING 2020-06-03 11:44:00 Kindra Griggs [facility] RHO (D) IMMUNE GLOBULIN 2020-06-03 11:44:00 Kindra Griggs [facility] HOSPITAL ADMISSION 2020-06-03 05:01:00 Doctor Un assigned, [facility] CONSENT/REFUSAL FOR DIAGNOSIS AND TREATMENT 2020-05-31 16:00:16 Doctor Unassigned, [facility] ASSIGNMENT OF BENEFITS 2020-05-31 15:59:58 Docto r Unassigned, [facility] POCT URINALYSIS W/O SPECIFIC GRAVITY 2020-05-28 00:00:00 Kindra Griggs [facility] >14 WEEKS US LIMITED 2020-05-22 22:26:46 Kindra Griggs [facility] FLU VACC ([phone]), 6+ MONTHS, IM, QUAD 2020-05-22 21:52:59 Kindra Griggs [facility] DSU PRE-OP 2020-05-22 05:01:00 Doctor Unass igned, [facility] POCT URINALYSIS W/O SPECIFIC GRAVITY 2020-05-06 00:00:00 Kindra Griggs [facility] POCT URINALYSIS W/O SPECIFIC GRAVITY 2020-04-18 16:10:00 Eugene Ricci [facility] POCT URINALYSIS W/O SPECIFIC GRAVITY 2020-04-05 00:00:00 Kindra Griggs [facility] GLUCOSE 1 HOUR POST PRANDIAL 2020-03-15 16:38:00 Kindra Griggs [facility] CBC WITH DIFF 2020-03-15 16:38:00 Kindra Griggs [facility] TDAP VACCINE, >11 YRS, IM 2020-03-15 14:22:25 Keiry Eugene [facility] POCT URINALYSIS W/O SPECIFIC GRAVITY 2020-03-15 00:00:00 Eugene Ricci [facility] AGREEMENTS AUTHORIZATIONS AND IRREVOCABLE ASSIGNMENTS (FORM 2001) 2020-01-25 05:01:00 Doctor Unassigned, [facility] Encounters Start Date/Time End Date/Time Encounter Type Admission Type Attending Clinicians Care Facility Care Department Encounter ID Source 2024-07-25 10:30:00 2024-07-25 10:30:00 Outpatient R DOLORES ALCAZAR [facility] [id number] [facility] 2023-12-07 10:40:00 2023-12-07 10:40:00 Outpatient R OBI-ANTELMOBLANCA [facility] [id number] [facility] 2023-11-29 09:40:00 2023-11-29 09:40:00 Outpatient R OBI-ANTELMO , BLANCA OBI-ANTELMO , BLANCA [facility] [id number] [facility] 2023-11-18 11:00:00 2023-11-18 11:00:00 Outpatient R OBI-ANTELMO , BLANCA [facility] [id number] [facility] 2023-11-11 09:00:00 2023-11-11 09:00:00 Outpatient R OBI-ANTELMO BLANCA [facility] [id number] [facility] 2023-10-28 00:00:00 2023-10-28 00:00:00 Patient Secure Msg Doctor Unassigned, Andres [facility] 1..840.114 350.1.13.10 4.2.7.2.686 [id number] [facility] 2023-10-11 11:15:00 2023-10-11 11:30:00 Fitness Sales Consultant Visit 2, Adc Lab Dawson-Antelmo [facility] 1.2.840.114 350.1.13.10 4.2.7.2.686 [id number] [facility] 2023-10-11 10:00:00 2023-10-11 10:59:04 Outpatient R OBI-ANTELMO BLANCA [facility] [id number] [facility] 2023-10-11 10:00:00 2023-10-11 10:59:04 Office [facility] 1.2840.114 350.1.13.10 4.2.7.2.686 [id number] [facility] 2023-10-11 00:00:00 2023-10-11 00:00:00 Orders Only Doctor Unassigned, Andres [facility] 1.2840.114 350.1.13.10 4.2.7.2.686 [id number] [facility] 2023-07-29 00:00:00 2023-07-29 00:00:00 Telephone Adum Dolores [facility] 1.2.840.114 350.1.13.10 4.2.7.2.686 [id number] [facility] 2023-07-22 09:20:00 2023-07-22 09:20:00 Outpatient R OBI-ANTELMO , BLANCA OBI-ANTELMO , BLANCA [facility] [id number] [facility] 2023-07-16 10:15:00 2023-07-16 10:30:00 Fitness Sales Consultant Visit 2, Adc Lab Ottoniel [facility] BUILDING 1.2.84.114 350.1.13.10 4.2.7.2.686 [id number] [facility] 2023-07-16 10:15:00 2023-07-16 10:27:15 [id number] 2023-07-16 09:45:00 2023-07-16 10:13:18 [facility] 1.2.840.114 350.1.13.10 4.2.7.2.686 [id number] [facility] 2023-06-22 11:15:00 2023-06-22 11:50:05 Outpatient R ADUM, [facility] [id number] [facility] 2023-06-22 11:15:00 2023-06-22 11:50:05 Routine Visit Adum, Dolores Bronson [facility] 1.2.840.114 350.1.13.10 4.2.7.2.686 [id number] 134 [id number] [facility] 2023-06-01 10:00:00 2023-06-01 10:19:11 Outpatient R ADUM, DOLORES [facility] [id number] [facility] 2023-06-01 10:00:00 2023-06-01 10:19:11 Nurse Visit Nurse, [facility] Adum, Dolores Bronson [facility] 1.2.840.114 350.1.13.10 4.2.7.2.686 [id number] 134 [id number] [facility] 2023-05-25 05:57:00 2023-05-26 18:30:00 Inpatient P ADUM, DOLORES [facility] CARLOS [id number] [facility] 2023-05-25 05:57:00 2023-05-26 18:30:00 Hospital Encounter Adum, Dolores [facility] 1.2840.114 350.1.13.10 4.2.7.2.686 [id number] [facility] 2023-05-26 00:00:00 2023-05-26 00:00:00 Telephone Adum, Dolores [facility] 1.2.840.114 350.1.13.10 4.2.7.2.686 [id number] 134 [id number] [facility] 2023-05-26 00:00:00 2023-05-26 00:00:00 Telephone Adum, Dolores [facility] 1.2.840.114 350.1.13.10 4.2.7.2.686 [id number] 134 [id number] [facility] 2023-05-25 08:00:00 2023-05-25 10:14:00 Surgery AdDolores gilliam [facility] 1.2.840.114 350.1.13.10 4.2.7.2.686 [id number] [id number] [facility] 2023-05-25 08:05:00 2023-05-25 09:50:00 Anesthesia Event ReneElianeOdettebethany Jhaveri Sreekanth Del Valle [facility] 1.2840.114 350.1.13.10 4.2.7.2.686 [id number] [facility] 2023-05-24 10:45:00 2023-05-24 11:00:00 Fitness Sales Consultant Visit Pob, Adc Lab Main Admarlo [facility] BUILDING 1.20.114 350.1.13.10 4.2.7.2.686 [id number] [facility] 2023-05-24 10:45:00 2023-05-24 10:45:00 Outpatient R BENMARLO [facility] [id number] [facility] 2023-05-21 10:00:00 2023-05-21 10:53:47 Outpatient R BENMARLO [facility] [id number] [facility] 2023-05-21 10:00:00 2023-05-21 10:53:47 Routine Visit Room, [facility] Admarlo [facility] BUILD[facility] 1.20.114 350.1.13.10 4.2.7.2.686 [id number] 134 [id number] [facility] 2023-05-21 00:00:00 2023-05-21 00:00:00 Orders Only Doctor Unassigned, Andres [facility] 1.2840.114 350.1.13.10 4.2.7.2.686 [id number] [facility] 2023-05-19 09:00:00 2023-05-19 11:06:35 Outpatient R DOLORES ALCAZAR [facility] [id number] [facility] 2023-05-19 09:00:00 2023-05-19 11:06:35 [facility] 1.840.114 350.1.13.10 4.2.7.2.686 [id number] 134 [id number] [facility] 2023-05-19 10:00:00 2023-05-19 10:00:00 Outpatient R [facility] [id number] [facility] 2023-05-18 10:00:00 2023-05-18 10:00:00 Outpatient R [facility] [id number] [facility] 2023-05-17 09:00:00 2023-05-17 11:39:25 Routine Visit Room, [facility] Vance [facility] 1..840.114 350.1.13.10 4.2.7.2.686 [id number] [facility] 2023-05-17 09:30:00 2023-05-17 10:32:10 Outpatient P GI VANCE SHANNON [facility] [id number] [facility] 2023-05-17 09:30:00 2023-05-17 10:32:10 Fitness Sales Consultant Visit Ultrasound, Jens-Gi Lazcano [facility] CNC SUPERVISOR [facility] MATERNAL & [facility]ILD [facility] 1.840.114 350.1.13.10 4.2.7.2.686 [id number] [facility] 2023-05-14 08:00:00 2023-05-14 08:28:26 Outpatient R OTTONIEL DOLORES [facility] [id number] [facility] 2023-05-14 08:00:00 2023-05-14 08:15:00 Fitness Sales Consultant Visit Lab, Jens Castellanos, [facility] 1.114 350.1.13.10 4.2.7.2.686 [id number] [facility] 2023-05-12 09:00:00 2023-05-12 10:08:52 Outpatient R ADUM, [facility] [id number] [facility] 2023-05-12 09:00:00 2023-05-12 10:08:52 Routine Visit 1, [facility] 1.114 350.1.13.10 4.2.7.2.686 [id number] 134 [id number] [facility] 2023-05-05 08:00:00 2023-05-05 09:19:38 Outpatient R ADUM, [facility] [id number] [facility] 2023-05-05 08:00:00 2023-05-05 09:19:38 Routine Visit 1, [facility], [facility] 1.114 350.1.13.10 4.2.7.2.686 [id number] [facility] 2023-04-28 10:00:00 2023-04-28 11:20:17 Outpatient R ADUM, [facility] [id number] [facility] 2023-04-28 10:00:00 2023-04-28 11:20:17 Routine Visit 1, [facility], [facility] 1.114 350.1.13.10 4.2.7.2.686 [id number] [facility] 2023-04-21 10:00:00 2023-04-21 11:11:36 [facility] 1.2.114 350.1.13.10 4.2.7.2.686 [id number] [facility] 2023-04-21 10:00:00 2023-04-21 11:11:36 Outpatient R ADUM [facility] [id number] [facility] 2023-04-20 00:00:00 2023-04-20 00:00:00 Telephone Adum, [facility] 1.84.114 350.1.13.10 4.2.7.2.686 [id number] 134 [id number] [facility] 2023-04-19 13:30:00 2023-04-19 13:55:32 Outpatient R ADMARLO [facility] [id number] [facility] 2023-04-19 13:30:00 2023-04-19 13:55:32 [facility] 1.284.114 350.1.13.10 4.2.7.2.686 [id number] [facility] 2023-04-08 08:30:00 2023-04-08 08:30:00 Outpatient R [facility] [id number] [facility] 2023-04-07 16:15:00 2023-04-07 16:15:00 Routine Visit Ad [facility] 1.84.114 350.1.13.10 4.2.7.2.686 [id number] [facility] 2023-04-07 16:15:00 2023-04-07 11:10:10 Outpatient R ADMARLO [facility] [id number] [facility] 2023-04-07 00:00:00 2023-04-07 00:00:00 Orders Only Doctor Unassigned, Andres [facility] 1..114 350.1.13.10 4.2.7.2.686 [id number] [facility] 2023-04-07 00:00:00 2023-04-07 00:00:00 Telephone Adum, [facility] 1..114 350.1.13.10 4.2.7.2.686 [id number] [facility] 2023-03-24 14:45:00 2023-03-24 15:40:19 Outpatient R OTTONIEL [facility] [id number] [facility] 2023-03-24 14:45:00 2023-03-24 15:40:19 Routine Visit Ottoniel [facility] 1..114 350.1.13.10 4.2.7.2.686 [id number] [facility] 2023-03-24 13:45:00 2023-03-24 13:45:00 Outpatient R OTTONIEL [facility] [id number] [facility] 2023-03-22 08:00:00 2023-03-22 11:49:53 Outpatient R OTTONIEL [facility] [id number] [facility] 2023-03-22 08:00:00 2023-03-22 08:15:00 Fitness Sales Consultant Visit Lab, Ang - Db Ottoniel [facility]?STACEYSameera [facility] 1.840.114 350.1.13.10 4.2.7.2.686 [id number] [facility] 2023-03-10 16:00:00 2023-03-10 16:32:46 Outpatient R OTTONIEL [facility] [id number] [facility] 2023-03-10 16:00:00 2023-03-10 16:32:46 Routine Visit Adum, [facility] 1.20.114 350.1.13.10 4.2.7.2.686 [id number] 134 [id number] [facility] 2023-03-10 00:00:00 2023-03-10 00:00:00 Orders Only Doctor Unassigned, Andres [facility] 1.2840.114 350.1.13.10 4.2.7.2.686 [id number] [facility] 2023-03-09 09:00:00 2023-03-09 12:03:38 Outpatient R ADUM, [facility] [id number] [facility] 2023-03-09 09:00:00 2023-03-09 09:15:00 Fitness Sales Consultant Visit Lab, Jens [facility]ell[facility]um, [facility] 1.114 350.1.13.10 4.2.7.2.686 [id number] [facility] 2023-02-17 13:00:00 2023-02-17 13:12:01 Outpatient R ADUM, [facility] [id number] [facility] 2023-02-17 13:00:00 2023-02-17 13:12:01 Routine Visit Adum, [facility] 1.20.114 350.1.13.10 4.2.7.2.686 [id number] [facility] 2023-02-03 15:00:00 2023-02-03 16:00:00 Fitness Sales Consultant Visit Ultrasound, Heath Longoria [facility] CNC SUPERVISOR [facility] MATERNAL & [facility] 1.20.114 350.1.13.10 4.2.7.2.686 [id number] [facility] 2023-02-03 15:00:00 2023-02-03 15:00:00 Outpatient P HEATH GALLO COREY [facility] [id number] [facility] 2023-01-20 16:00:00 2023-01-20 16:32:43 Outpatient R OTTONIEL [facility] [id number] [facility] 2023-01-20 16:00:00 2023-01-20 16:32:43 Routine Visit [facility] 1.840.114 350.1.13.10 4.2.7.2.686 [id number] [facility] 2022-12-24 13:30:00 2022-12-24 13:45:00 Fitness Sales Consultant Visit Lab, Jens - Sukhjinder Alcazar [facility] 1..840.114 350.1.13.10 4.2.7.2.686 [id number] [facility] 2022-12-24 13:30:00 2022-12-24 13:30:00 Outpatient R OTTONIEL [facility] [id number] [facility] 2022-12-23 10:00:00 2022-12-23 10:35:37 Outpatient R OTTONIEL [facility] [id number] [facility] 2022-12-23 10:00:00 2022-12-23 10:35:37 Routine Visit Ottoniel [facility] 1.840.114 350.1.13.10 4.2.7.2.686 [id number] 134 [id number] [facility] 2022-12-08 00:00:00 2022-12-08 00:00:00 Telephone Admarlo [facility] 1.2.840.114 350.1.13.10 4.2.7.2.686 [id number] [facility] 2022-11-30 09:00:00 2022-11-30 09:15:00 Fitness Sales Consultant Visit Lab, Jens - Db Ottoniel, [facility] MED[facility] OFFICE BUILD[facility] 1.0114 350.1.13.10 4.2.7.2.686 [id number] [facility] 2022-11-30 09:00:00 2022-11-30 09:00:00 Outpatient R OTTONIEL [facility] [id number] [facility] 2022-11-30 00:00:00 2022-11-30 00:00:00 Orders Only Doctor Unassigned, Andres [facility] 1.0.114 350.1.13.10 4.2.7.2.686 [id number] [facility] 2022-11-25 11:15:00 2022-11-25 11:38:29 Outpatient R OTTONIEL [facility] [id number] [facility] 2022-11-25 11:15:00 2022-11-25 11:38:29 Routine Visit Ottoniel [facility] 1.114 350.1.13.10 4.2.7.2.686 [id number] [facility] 2022-11-19 09:00:00 2022-11-19 10:06:27 Fitness Sales Consultant Visit Lab, Jens - Sukhjinder Alcazar, [facility] MED[facility] OFFICE BUILD[facility] 1.114 350.1.13.10 4.2.7.2.686 [id number] [facility] 2022-11-19 09:00:00 2022-11-19 09:00:00 Outpatient R OTTONIEL [facility] [id number] [facility] 2022-10-27 14:00:00 2022-10-27 15:35:40 Outpatient DOLORES MCKEON [facility] [id number] [facility] 2022-10-27 14:00:00 2022-10-27 15:35:40 Initial Visit Benmarlo Dolores Bronson [facility] 1.840.114 350.1.13.10 4.2.7.2.686 [id number] 134 [id number] [facility] 2022-10-27 00:00:00 2022-10-27 00:00:00 Orders Only Doctor Unassigned, Andres [facility] 1.840.114 350.1.13.10 4.2.7.2.686 [id number] [facility] 2021-01-14 14:30:00 2021-01-14 14:30:00 Outpatient EUGENE VEGA [facility] [id number] [facility] 2020-12-30 09:00:00 2020-12-30 09:00:00 Outpatient EUGENE VEGA [facility] [id number] [facility] 2020-12-07 13:15:00 2020-12-07 13:15:00 Outpatient KAYLEEN SCHAEFER [facility] [id number] [facility] 2020-11-25 00:00:00 2020-11-25 00:00:00 RefKindra Skinner [facility] 1.840.114 350.1.13.10 4.2.7.2.686 [id number] [facility] 2020-11-16 13:20:00 2020-11-16 13:20:00 Outpatient [facility] [id number] [facility] 2020-07-02 11:06:01 2020-07-02 11:21:01 Routine Visit Eugene [facility] 1.2.840.114 350.1.13.10 4.2.7.2.686 [id number] 134 [id number] 2020-07-02 11:06:01 2020-07-02 11:21:01 Routine Visit Eugene Ricci [facility] 1.2.840.114 350.1.13.10 4.2.7.2.686 [id number] [facility] 2020-07-02 11:00:00 2020-07-02 11:00:00 Outpatient R [facility]Y [facility] [id number] [facility] 2020-07-02 00:00:00 2020-07-02 00:00:00 Orders Only Doctor Unassigned, Andres [facility] 1.2.840.114 350.1.13.10 4.2.7.2.686 [id number] 2020-07-02 00:00:00 2020-07-02 00:00:00 Orders Only Doctor Unassigned, Andres [facility] 1.2.840.114 350.1.13.10 4.2.7.2.686 [id number] [facility] 2020-06-14 00:00:00 2020-06-14 00:00:00 Telephone Kindra Griggs [facility] 1.2.840.114 350.1.13.10 4.2.7.2.686 [id number] [facility] 2020-06-14 00:00:00 2020-06-14 00:00:00 Orders Only Doctor Unassigned, Andres [facility] 1.2.840.114 350.1.13.10 4.2.7.2.686 [id number] [facility] 2020-06-14 00:00:00 2020-06-14 00:00:00 Telephone Griggs, Kindra [facility] 1.2.840.114 350.1.13.10 4.2.7.2.686 [id number] 2020-06-14 00:00:00 2020-06-14 00:00:00 Orders Only Doctor Unassigned, Andres [facility] 1.2.840.114 350.1.13.10 4.2.7.2.686 [id number] 2020-06-11 14:14:54 2020-06-11 14:37:51 Nurse Visit Nurse, [facility] Kindra Griggs [facility] 1.2.840.114 350.1.13.10 4.2.7.2.686 [id number] [facility] 2020-06-11 14:14:54 2020-06-11 14:37:51 Nurse Visit Nurse, [facility] 1.2.840.114 350.1.13.10 4.2.7.2.686 [id number] 2020-06-11 14:00:00 2020-06-11 14:00:00 Outpatient [facility] [id number] [facility] 2020-06-03 05:33:00 2020-06-04 18:30:00 Hospital Encounter Kindra Griggs [facility] 1.2.840.114 350.1.13.10 4.2.7.2.686 [id number] [facility] 2020-06-03 05:33:00 2020-06-04 18:30:00 Hospital Encounter Kindra Griggs [facility] 1.2.840.114 350.1.13.10 4.2.7.2.686 [id number] 2020-06-03 05:33:00 2020-06-03 05:33:00 Outpatient P KINDRA GRIGGS [facility] [id number] [facility] 2020-06-03 00:00:00 2020-06-03 00:00:00 Orders Only Doctor Unassigned, Andres [facility] 1.2.840.114 350.1.13.10 4.2.7.2.686 [id number] [facility] 2020-06-03 00:00:00 2020-06-03 00:00:00 Orders Only Doctor Unassigned, Andres [facility] 1.2.840.114 350.1.13.10 4.2.7.2.686 [id number] 2020-05-31 10:58:53 2020-05-31 11:13:53 Laboratory Only Only, Adc Test Kindra Griggs [facility] 1.2.840.114 350.1.13.10 4.2.7.2.686 [id number] [facility] 2020-05-31 10:15:00 2020-05-31 10:15:00 Outpatient R [facility] [id number] [facility] 2020-05-29 00:00:00 2020-05-29 00:00:00 Telephone Kindra Griggs [facility] 1.2840.114 350.1.13.10 4.2.7.2.686 [id number] [facility] 2020-05-28 16:00:11 2020-05-28 16:49:53 Routine Visit Kindra Griggs [facility] 1.2.840.114 350.1.13.10 4.2.7.2.686 [id number] [facility] 2020-05-28 16:00:11 2020-05-28 16:49:53 Routine Visit Kindra Griggs [facility] 1.2.840.114 350.1.13.10 4.2.7.2.686 [id number] 134 [id number] 2020-05-28 15:53:23 2020-05-28 16:08:23 Fitness Sales Consultant Visit 2, Adc Lab [facility] 1.2.840.114 350.1.13.10 4.2.7.2.686 [id number] [facility] 2020-05-28 16:00:00 2020-05-28 16:00:00 Outpatient R KINDRA GRIGGS [facility] [id number] [facility] 2020-05-23 00:00:00 2020-05-23 00:00:00 Prep For Surgery [facility] 1.2.840.114 350.1.13.10 4.2.7.2.686 [id number] [facility] 2020-05-22 16:09:56 2020-05-22 17:21:44 Routine Visit Kindra Griggs [facility] Building 1.2.840.114 350.1.13.10 4.2.7.2.686 [id number] [facility] 2020-05-22 16:15:00 2020-05-22 16:15:00 Outpatient R KINDRA GRIGGS [facility] [id number] [facility] 2020-05-20 11:15:00 2020-05-20 11:15:00 Outpatient R EUGENE RICCI [facility] [id number] [facility] 2020-05-20 10:31:01 2020-05-20 10:46:01 Fitness Sales Consultant Visit 2, Adc [facility] 1.2.840.114 350.1.13.10 4.2.7.2.686 [id number] [facility] 2020-05-06 15:51:49 2020-05-20 10:35:13 Routine Visit Kindra Griggs [facility] Building 1.2.840.114 350.1.13.10 4.2.7.2.686 [id number] [facility] 2020-05-06 16:00:00 2020-05-06 16:00:00 Outpatient R KINDRA GRIGGS [facility] [id number] [facility] 2020-05-02 09:00:00 2020-05-02 09:00:00 Outpatient R [facility] [id number] [facility] 2020-04-19 16:00:00 2020-04-19 16:00:00 Outpatient R [facility] [id number] [facility] 2020-04-18 11:00:18 2020-04-18 11:15:18 Routine Visit BurkeEugene cordero [facility] 1.2.840.114 350.1.13.10 4.2.7.2.686 [id number] 134 [id number] [facility] 2020-04-18 10:45:00 2020-04-18 10:45:00 Outpatient R EUGENE RICCI [facility] [id number] [facility] 2020-04-18 00:00:00 2020-04-18 00:00:00 Letter (Out) Kindra Griggs [facility] 1.2.840.114 350.1.13.10 4.2.7.2.686 [id number] 134 [id number] [facility] 2020-04-18 00:00:00 2020-04-18 00:00:00 Letter (Out) Kindra Griggs [facility] 1.2.840.114 350.1.13.10 4.2.7.2.686 [id number] [facility] 2020-04-05 16:00:00 2020-04-05 16:00:00 Outpatient R KINDRA GRIGGS [facility] [id number] [facility] 2020-04-05 14:13:39 2020-04-05 14:45:49 Routine Visit Kindra Griggs [facility] Surjit Abbott nal Building 1.2.840.114 350.1.13.10 4.2.7.2.686 [id number] 134 [id number] [facility] 2020-04-05 14:15:00 2020-04-05 14:15:00 Outpatient R KINDAR GRIGGS [facility] [id number] [facility] 2020-03-29 08:15:00 2020-03-29 08:15:00 Outpatient R KINDRA GRIGGS [facility] [id number] [facility] 2020-03-26 13:00:00 2020-03-26 13:00:00 Outpatient R KINDRA GRIGGS [facility] [id number] [facility] 2020-03-26 09:24:04 2020-03-26 09:39:04 Telemedici ne Visit Kindra Griggs [facility] 1.2.840.114 350.1.13.10 4.2.7.2.686 [id number] [facility] 2020-03-15 15:37:33 2020-03-15 16:07:33 Fitness Sales Consultant Visit Ultrasound, Adc [facility]ugene [facility] Building 1.2.840.114 350.1.13.10 4.2.7.2.686 [id number] 134 [id number] [facility] 2020-03-15 10:34:25 2020-03-15 10:49:25 Fitness Sales Consultant Visit 2, Adc Lab Kindra Griggs [facility] 1.2.840.114 350.1.13.10 4.2.7.2.686 [id number] [facility] 2020-03-15 08:54:47 2020-03-15 09:40:37 Routine Visit [facility] 1.2.840.114 350.1.13.10 4.2.7.2.686 [id number] [facility] 2020-03-15 08:45:00 2020-03-15 08:45:00 Outpatient R EUGENE RICCI [facility] [id number] [facility] 2020-02-14 11:30:00 2020-02-14 11:30:00 Outpatient R KINDRA GRIGGS [facility] [id number] [facility] 2020-02-14 08:14:55 2020-02-14 08:29:55 Telemedici ne Visit Kindra Griggs [facility] Building 1..840.114 350.1.13.10 4.2.7.2.686 [id number] [facility] 2020-02-05 09:45:00 2020-02-05 09:45:00 Outpatient R KINDRA GRIGGS [facility] [id number] [facility] 2020-02-04 09:09:34 2020-02-04 09:29:34 Laboratory Only Lab, Adc Fam Pob Estephania Puentes [facility] Office Building One 1..840.114 350.1.13.10 4.2.7.2.686 [id number] [facility] 2020-02-04 09:00:00 2020-02-04 09:00:00 Outpatient R [facility] [id number] [facility] 2020-02-01 00:00:00 2020-02-01 00:00:00 Telephone Anson Kindra [facility] Building 1..840.114 350.1.13.10 4.2.7.2.686 [id number] 134 [id number] [facility] 2020-01-25 13:28:32 2020-01-25 13:43:32 Fitness Sales Consultant Visit 2, Adc [facility] 1.84.114 350.1.13.10 4.2.7.2.686 [id number] [facility] 2020-01-25 13:30:00 2020-01-25 13:30:00 Outpatient R KINDRA GRIGGS [facility] [id number] [facility] 2020-01-25 00:00:00 2020-01-25 00:00:00 Orders Only Doctor Unassigned, Andres [facility] 1.114 350.1.13.10 4.2.7.2.686 [id number] [facility] 2020-01-23 13:49:51 2020-01-23 15:04:51 Fitness Sales Consultant Visit Ultrasound, Jatinder Monroe [facility] CNC SUPERVISOR [facility] 1..114 350.1.13.10 4.2.7.2.686 [id number] [facility] 2020-01-23 14:00:00 2020-01-23 14:00:00 Outpatient P [facility] [id number] [facility] 2020-01-05 07:55:00 2020-01-05 09:38:04 [facility]medici ne [facility] 1.840.114 350.1.13.10 4.2.7.2.686 [id number] [facility] 2020-01-05 09:15:00 2020-01-05 09:15:00 Outpatient R [facility] [id number] [facility] 2020-01-05 00:00:00 2020-01-05 00:00:00 Case Management [facility] 1.84.114 350.1.13.10 4.2.7.2.686 [id number] [facility] 2020-01-02 11:15:00 2020-01-02 11:15:00 Outpatient EUGENE VEGA [facility] [id number] [facility] 2019-12-14 00:00:00 2019-12-14 00:00:00 Telephone [facility] Griggs [facility] 1.2.840.114 350.1.13.10 4.2.7.2.686 [id number] 134 [id number] [facility] 2019-12-14 00:00:00 2019-12-14 00:00:00 Telephone Kindra Griggs [facility] Building 1.2.840.114 350.1.13.10 4.2.7.2.686 [id number] [facility] 2019-12-11 10:00:00 2019-12-11 10:00:00 Outpatient R [facility] [id number] [facility] 2019-12-11 00:00:00 2019-12-11 00:00:00 Telephone Kindra Griggs [facility] 1.2.840.114 350.1.13.10 4.2.7.2.686 [id number] 134 [id number] [facility] 2019-12-07 00:00:00 2019-12-07 00:00:00 Telephone Kindra Griggs [facility] Building 1.2.840.114 350.1.13.10 4.2.7.2.686 [id number] [facility] 2019-12-04 09:30:00 2019-12-04 09:30:00 Outpatient R KINDRA GRIGGS [facility] [id number] [facility] Results Test Description Test Time Test Comments Results Result Co mments Source [facility] [id number] 12:26:30* Test Item Value Reference Range Interpretation Comme nts GLU FASTNG (test code = 2147543624) 93 mg/dL 70-110 Lab Interpretation (test cod e = 30512-2) Normal [facility] GLUCOSE (AUTOMATED)2023-05-25 11:27:27* Test Item Value Reference Range Interpretation Comme nts POCT GLU (test code = 9685145488) 87 mg/dL 70-110 Lab Interpretation (test cod e = 79599-7) Normal [facility] GLUCOSE (AUTOMATED)2023-05-25 11:27:27* Test Item Value Reference Range Interpretation Comme nts POCT GLU (test code = 5047321179) 87 mg/dL 70-110 Lab Interpretation (test cod e = 87398-2) Normal [facility] URINALYSIS W/O SPECIFIC [id number] 14:06:00* Test Item Value Reference Range Interpretation [...] = 3257) N/A Negative - Negati ve [facility] URINALYSIS W/O SPECIFIC [id number] 14:14:00* Test Item Value Reference Range Interpretation [...] = 3257) n/a Negative - Negati ve [facility] URINALYSIS W/O SPECIFIC [id number] 14:59:00* Test Item Value Reference Range Interpretation [...] = 3257) n/a Negative - Negati ve [facility] URINALYSIS W/O SPECIFIC [id number] 14:59:00* Test Item Value Reference Range Interpretation [...] = 3257) n/a Negative - Negati ve [facility] URINALYSIS W/O SPECIFIC [id number] 14:59:00* Test Item Value Reference Range Interpretation [...] = 3257) n/a Negative - Negati ve [facility] URINALYSIS W/O SPECIFIC [id number] 16:12:00* Test Item Value Reference Range Interpretation [...] = 3257) N/A Negative - Negati ve [facility] URINALYSIS W/O SPECIFIC [id number] 15:04:00* Test Item Value Reference Range Interpretation [...] = 3257) n/a Negative - Negati ve [facility] URINALYSIS W/O SPECIFIC [id number] 15:30:00* Test Item Value Reference Range Interpretation [...] = 3257) n/a Negative - Negati ve [facility] URINALYSIS W/O SPECIFIC [id number] 20:00:00* Test Item Value Reference Range Interpretation [...] = 3257) n/a Negative - Negati ve [facility] URINALYSIS W/O SPECIFIC [id number] 20:00:00* Test Item Value Reference Range Interpretation [...] = 3257) n/a Negative - Negati ve [facility] URINALYSIS W/O SPECIFIC [id number] 20:00:00* Test Item Value Reference Range Interpretation [...] = 3257) n/a Negative - Negati ve [facility] URINALYSIS W/O SPECIFIC [id number] 20:00:00* Test Item Value Reference Range Interpretation [...] = 3257) n/a Negative - Negati ve [facility] URINALYSIS W/O SPECIFIC [id number] 21:00:00* Test Item Value Reference Range Interpretation [...] = 3257) n/a Negative - Negati ve [facility] URINALYSIS W/O SPECIFIC [id number] 21:00:00* Test Item Value Reference Range Interpretation Comme nts POCT PH U (test code = 3254) n/a 5-8 POCT U LEUK EST (test code = 3263) n/a Negative - Negative POCT U NIT (test code = 3262) n/a Negative - Negati ve POCT U PROT (test code = 3259) negative Negative - Negat chanatl POCT U GLU (test code = 3256) negative Negative - Negati ve POCT U KETONE (test code = 3258) n/a Negative - Neg ative POCT U BLD (test code = 3257) n/a Negative - Negati ve [facility] URINALYSIS W/O SPECIFIC [id number] 18:14:00* Test Item Value Reference Range Interpretation [...] = 3257) n/a Negative - Negati ve [facility] URINALYSIS W/O SPECIFIC [id number] 21:07:00* Test Item Value Reference Range Interpretation [...] = 3257) n/a Negative - Negati ve [facility] URINALYSIS W/O SPECIFIC [id number] 15:09:00* Test Item Value Reference Range Interpretation [...] = 3257) N/A Negative - Negati ve [facility] URINALYSIS W/O SPECIFIC [id number] 16:22:00* Test Item Value Reference Range Interpretation [...] = 3257) N/A Negative - Negati ve [facility] URINALYSIS W/O SPECIFIC [id number] 16:22:00* Test Item Value Reference Range Interpretation [...] = 3257) N/A Negative - Negati ve [facility] URINALYSIS W/O SPECIFIC [id number] 19:16:00* Test Item Value Reference Range Interpretation [...] = 3257) N/A Negative - Negati ve [facility] [id number] 19:16:00* Test Item Value Reference Range Interpretation Comme nts POCT PREG (test code = 1605) Positive On board controls acceptable with C Line (test code = 3574) Yes POCT PREG LOT # (test code = 3575) POCT PREG TEST DATE ( test code = 3576) [facility] [id number] 17:20:00* Test Item Value Reference Range Interpretation Comme nts POCT PREG (test code = 1605) Negative On board controls acceptable with C Line (test code = 3574) Yes POCT PREG LOT # (test code = 3575) POCT PREG TEST DATE ( test code = 3576) Lab Interpretation (test cod e = 13464-8) Normal [facility] with [id number] 10:06:00* Test Item Value Reference Range Interpretation [...] 34.4 g/dL 31.6-35.1 RDW-SD (test code = 49938-8) 40.2 fL 39-49.9 RDW-CV (test code = 788-0) 12.6 % 12-15.5 PLT (test code = 777-3) See_Comment [Automated messa ge] The system which generated this result transmitted reference range: 166 - 358 10*3/?L. The reference range was not used to interpret this result as normal/abnormal. MPV (test code = 44901-5) 10.4 fL 9.5-12.9 NRBC/100 WBC (test code = 7923469103) See_Comment [Automated me ssage] The system which generated this result transmitted reference range: 0.0 - 10.0 /100 WBCs. The reference range was not used to interpret this result as normal/abnormal. NRBC x10^3 (test code = 0116790669) <0.01 See_Comment [Automated messa ge] The system which generated this result transmitted reference range: 10*3/?L. The reference range was not used to interpret this result as normal/abnormal. GRAN MAT (NEUT) % (test code = 770-8) 67.7 % IMM GRAN % (test code = 9939876104) 0.20 % LYMPH % (test code = 736-9) 26.2 % MONO % (test code = 5905-5) 4.6 % EOS % (test code = 713-8) 1.1 % BASO % (test code = 706-2) 0.2 % GRAN MAT x10^3(ANC) (test code = 1671831635) 5.41 10*3/uL 1.88-7.09 IMM GRAN x10^3 (test code = 7533698466) <0.03 0-0.06 LYMPH x10^3 (test code = 731-0) 2.10 10*3/uL 1.32-3.29 MONO x10^3 (test code = 742-7) 0.37 10*3/uL 0.33-0.92 EOS x10^3 (test code = 711-2) 0.09 10*3/uL 0.03-0.39 BASO x10^3 (test code = 704-7) <0.03 0.01-0.07 Lab Interpretation (test code = 87370-6) Abnormal [facility] ONLY - [id number] 06:12:00* Test Item Value Reference Range Interpretation Comme nts RPR (Qualitative) (test code = 85244-7) Nonreactive Nonreactive Lab Interpretation (test cod e = 91445-6) Normal [facility]villeRHO (D) IMMUNE [id number] 17:33:53* Test Item Value Reference Range Interpretation Comme nts RHIG CANDIDATE? (test code = 5055) No- see comment Patient is not a candidate for RhIg- Patient is Rh Positive.Performed at [facility] Laboratory Services - [facility] Blood [address] [place] [phone] Free: [phone] No. [id number] [facility] BrownsvilleHEPATITIS B SURFACE [id number] 15:45:00 * Test Item Value Reference Range Interpretation Comme nts HBsAg Semi-Quantitative (olayinka t code = 5195-3) Negative Negative [facility]villeHIV 1/2 AG-AB WITH [id number] 14:03:00* Test Item Value Reference Range Interpretation Comme nts HIV Semi-quantitative (test code = 96778-3) Negative Negative JUAN FRANCISCO (test code = JUAN FRANCISCO) Non-reactive for HIV-1 antigen and HIV-1/HIV-2 antibodies. ?No laboratory evidence of HIV infection. ?Repeat in 2-4 weeks if acute HIV infection is suspected. [facility]villeVenous Cord [id number] 13:53:00* Test Item Value Reference Range Interpretation Comme nts VENOUS BASE EXCESS, CORD (test code = 0061082815) mEq/L VENOUS PH, CORD (test code = 7144242400) 7.25-7.45 VENOUS PC02, CORD (test code = 4876183190) See_Comment [Automated messa ge] The system which generated this result transmitted reference range: 27 - 49 mmHg. The reference range was not used to interpret this result as normal/abnormal. VENOUS PO2, CORD (test code = 6062559039) See_Comment [Automated me ssage] The system which generated this result transmitted reference range: 17 - 41 mmHg. The reference range was not used to interpret this result as normal/abnormal. VENOUS BICARBONATE, CORD (test code = 4868360530) See_Comment [Automated messa ge] The system which generated this result transmitted reference range: 12 - 29 mEq/L. The reference range was not used to interpret this result as normal/abnormal. [facility] [id number] 13:50:00* Test Item Value Reference Range Interpretation Comme nts BASE EXCESS, CORD (test code = 2907060899) mEq/L AC PH, CORD (BEAKER) (test code = 7661431291) 7.18-7.38 PC02, CORD (test code = 3962854967) See_Comment [Automated messa ge] The system which generated this result transmitted reference range: 32 - 66 mmHg. The reference range was not used to interpret this result as normal/abnormal. PO2, CORD (test code = 1222349529) See_Comment [Automated messa ge] The system which generated this result transmitted reference range: 10 - 30 mmHg. The reference range was not used to interpret this result as normal/abnormal. BICARBONATE, CORD (test code = 5109719838) See_Comment [Automated messa ge] The system which generated this result transmitted reference range: 17 - 27 mEq/L. The reference range was not used to interpret this result as normal/abnormal. [facility]villeType and Screen - ONCE [id number] 13:13:48* Test Item Value Reference Range Interpretation Comme nts ABO & RH (test code = 20) A Positive Performed at [facility] Laboratory [facility] Blood [address] [place] [address] Free: [phone] No. [id number] IAT (test code = 1185) Negative Performed at [facility] Blood [address] Free: [phone] No. [id number] [facility] BrownsvilleCBC WITH [id number] 12:08:00* Test Item Value Reference Range Interpretation [...] 33.3 g/dL 31.6-35.1 RDW-SD (test code = 91481-6) 39.5 fL 39-49.9 RDW-CV (test code = 788-0) 12.6 % 12-15.5 PLT (test code = 777-3) See_Comment [Automated messa ge] The system which generated this result transmitted reference range: 166 - 358 10*3/?L. The reference range was not used to interpret this result as normal/abnormal. MPV (test code = 97967-5) 10.2 fL 9.5-12.9 NRBC/100 WBC (test code = 8099952246) See_Comment [Automated [place] [employer] ssage] The system which generated this result transmitted reference range: 0.0 - 10.0 /100 WBCs. The reference range was not used to interpret this result as normal/abnormal. NRBC x10^3 (test code = 5748859295) <0.01 See_Comment [Automated messa ge] The system which generated this result transmitted reference range: 10*3/?L. The reference range was not used to interpret this result as normal/abnormal. GRAN MAT (NEUT) % (test code = 770-8) 61.3 % IMM GRAN % (test code = 6704460469) 0.30 % LYMPH % (test code = 736-9) 31.8 % MONO % (test code = 5905-5) 3.6 % EOS % (test code = 713-8) 2.4 % BASO % (test code = 706-2) 0.6 % GRAN MAT x10^3(ANC) (test code = 3534280529) 4.04 10*3/uL 1.88-7.09 IMM GRAN x10^3 (test code = 6818863918) <0.03 0-0.06 LYMPH x10^3 (test code = 731-0) 2.10 10*3/uL 1.32-3.29 MONO x10^3 (test code = 742-7) 0.24 10*3/uL 0.33-0.92 L EOS x10^3 (test code = 711-2) 0.16 10*3/uL 0.03-0.39 BASO x10^3 (test code = 704-7) 0.04 10*3/uL 0.01-0.07 Lab Interpretation (test code = 62901-8) Abnormal [facility] URINALYSIS W/O SPECIFIC [id number] 21:31:00* Test Item Value Reference Range Interpretation [...] = 3257) N/A Negative - Negati ve [facility] URINALYSIS W/O SPECIFIC [id number] 21:31:00* Test Item Value Reference Range Interpretation [...] = 3257) N/A Negative - Negati ve [facility] URINALYSIS W/O SPECIFIC [id number] 21:31:00* Test Item Value Reference Range Interpretation [...] = 3257) N/A Negative - Negati ve [facility]>14 WEEKS US [id number] 22:27:09Limited USG for presentation: ?Cephalic Kindra Griggs MD ?05/22/2020 ?5:27 PM[facility]>14 WEEKS US LIMITED 2020-05-22 22:27:09Limited USG for presentation: ?Cephalic Kindra Griggs MD ?05/22/2020 ?5:27 PM[facility] BrownsvillePOPR URINALYSIS W/O SPECIFIC [id number] 21:32:00* Test Item Value Reference Range Interpretation [...] = 3257) n/a Negative - Negati ve [facility] BrownsvillePOCT URINALYSIS W/O SPECIFIC [id number] 21:32:00* Test Item Value Reference Range Interpretation [...] = 3257) n/a Negative - Negati ve [facility]villePOCT URINALYSIS W/O SPECIFIC [id number] 16:10:00* Test Item Value Reference Range Interpretation [...] = 3257) n/a Negative - Negati ve [facility] BrownsvillePOPR URINALYSIS W/O SPECIFIC [id number] 19:32:00* Test Item Value Reference Range Interpretation [...] ve Lab Interpretation (test cod e = 81220-9) Normal [facility] BrownsvilleGlucose 1 Hour Post [id number] 18:01:00* Test Item Value Reference Range Interpretation Comme nts GLUC 1 HR (test code = 8625035831) 109 mg/dL 120-170 L Lab Interpretation (test cod e = 10164-3) Abnormal [facility]villeCB with [id number] 17:48:00* Test Item Value Reference Range Interpretation [...] 33.7 g/dL 31.6-35.1 RDW-SD (test code = 50251-2) 41.6 fL 39-49.9 RDW-CV (test code = 788-0) 12.3 % 12-15.5 PLT (test code = 777-3) See_Comment [Automated [place] ge] The system which generated this result transmitted reference range: 166 - 358 10*3/?L. The reference range was not used to interpret this result as normal/abnormal. MPV (test code = 99575-1) 9.6 fL 9.5-12.9 NRBC/100 WBC (test code = 0535785164) See_Comment [Automated [employer] ssage] The system which generated this result transmitted reference range: 0.0 - 10.0 /100 WBCs. The reference range was not used to interpret this result as normal/abnormal. NRBC x10^3 (test code = 9189299598) <0.01 See_Comment [Automated [place] ge] The system which generated this result transmitted reference range: 10*3/?L. The reference range was not used to interpret this result as normal/abnormal. GRAN MAT (NEUT) % (test code = 770-8) 74.3 % IMM GRAN % (test code = 2823054162) 0.40 % LYMPH % (test code = 736-9) 19.4 % MONO % (test code = 5905-5) 3.7 % EOS % (test code = 713-8) 1.8 % BASO % (test code = 706-2) 0.4 % GRAN MAT x10^3(ANC) (test code = 7427556037) 5.87 10*3/uL 1.88-7.09 IMM GRAN x10^3 (test code = 1630941924) 0.03 10*3/uL 0-0.06 LYMPH x10^3 (test code = 731-0) 1.53 10*3/uL 1.32-3.29 MONO x10^3 (test code = 742-7) 0.29 10*3/uL 0.33-0.92 L EOS x10^3 (test code = 711-2) 0.14 10*3/uL 0.03-0.39 BASO x10^3 (test code = 704-7) 0.03 10*3/uL 0.01-0.07 Lab Interpretation (test code = 85631-3) [facility] SPECIFIC [id number] 14:15:00* Test Item Value Reference Range Interpretation [...] = 3257) n/a Negative - Negati ve [facility] Notes Date/Time Note Provider Source 2023-10-11 11:15:00 Images from the original note were not included. Venipuncture collection performed by clean technique on the left anticubitus. Total of 1 attempts were made. Slight pressure and a bandage/dressing were applied to the site(s). The patient experienced no complications. The following specimens were processed according to instructions and sent to [facility] laboratories per lab order on 10/11/2023 : LT BLUE SST 1 RED LAV 2 PPT DK GREEN (LiHep) DK GREEN (SodH) SANDOVAL DK BLUE (K2) DK BLUE (S) ACD Blood Culture NIPT/NTD [facility] 2023-07-29 09:14:29 Called pt x2 regarding paperwork. Paperwork was faxed on 07.19.23, but is missing patient signature on second page. 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 Karina Hamlin MA 07/29/2023 9:16 AM [facility] 2023-04-23 16:01:19 Formatting of this n ote might be different from the original. Spoke to pharmacy. Will change Novolin N to Humulin N with same instructions. Pt advised. MARIA DE JESUS BUSH RN 04/23/2023 4:03 PM Maria De Jesus Bush RN [facility] 2023-04-21 10:00:00 Formatting of this n ote [...] 1 week with NST Dolores Alcazar MD [facility] 2023-04-20 17:04:09 Formatting of this n ote might be different from the original. Spoke with patient, states that Maria De Jesus PAGE called and LM. Forwarding message. Gi Taylor RN 04/20/2023 5:04 PM [facility] [employer] 2023-04-20 16:50:54 Formatting of this n ote might be different from the original. Pt is returning a call to the clinic in regards to her insulin. Aidan Cardona [facility] 2023-04-07 16:15:00 Formatting of this n ote [...] OB clinic or antepartum unit at the [facility] - POCT URINALYSIS W/O SPECIFIC GRAVITY [...] for visit and NST Dolores Alcazar MD [facility] [employer] 2023-04-07 12:00:53 Formatting of this n ote might be different from the original. Patient dropped of a dental clearance form that needs to be filled out and faxed back to [facility]. Form filled out, signed by Dr. Alcazar, and faxed to [facility]. Voicemail left for patient informing her of message. Will scan and upload a copy to [employer]. [facility] 2023-03-24 14:45:00 Formatting of this n ote [...] OB clinic or antepartum unit at the [facility] 3. Previous section complicating ERLTCS with [...] 2 weeks or PRN Dolores Alcazar MD [facility] 2023-03-24 14:45:00 Addended by: AYDEE MCKEON on: 03/24/2023 03:53 PM Modules accepted: Orders [facility] 2023-03-24 14:45:00 Addended by: AYDEE MCKEON on: 03/24/2023 03:57 PM Modules accepted: Orders [facility] 2023-03-22 08:00:00 Formatting of this n ote is different from the original. Images from the original note were not included. Venipuncture collection performed by clean technique on the left anticubitus. Total of 4 attempts were made. Slight pressure and a bandage/dressing were applied to the site(s). The patient experienced no complications. The following specimens were processed according to instructions and sent to [facility] laboratories per lab order on 03/22/2023 : Given 100gm glucola. LT BLUE SST 4 RED LAV PPT DK GREEN (LiHep) DK GREEN (SodH) SANDOVAL DK BLUE (K2) DK BLUE (S) ACD Blood Culture NIPT/NTD [facility] 2023-03-10 16:00:00 Formatting of this n ote [...] 2 weeks or PRN Dolores Alcazar MD [facility] 2023-03-09 09:00:00 Formatting of this n ote might be different from the original. Per PT she fasting for labs. Loaded PT with 50mg of Fruit punch Glucola start 929 finished 930. Marina Campos [facility] 2023-03-09 09:00:00 Formatting of this n ote might be different from the original. Lab orders Verified By Demetrius Morfin 03/09/2023 9:33 AM [facility] 2023-03-09 09:00:00 Formatting of this n ote is different from the original. Images from the original note were not included. Venipuncture collection performed by clean technique on the left anticubitus. Total of 1 attempts were made. Slight pressure and a bandage/dressing were applied to the site(s). The patient experienced no complications. The following specimens were processed according to instructions and sent to [facility] laboratories per lab order on 03/09/2023 LT BLUE SST 2 RED 1 LAV 2 PPT DK GREEN (LiHep) DK GREEN (SodH) SANDOVAL DK BLUE (K2) DK BLUE (S) ACD Blood Culture NIPT/NTD [facility]
--- NOTE | 2024-07-08 22:10 | RAD REPORT ---
EXAM: Knee Right 3 View INDICATION: fall onto knee;Pain COMPARISON: None FINDINGS: No acute fracture. No significant knee effusion. No significant focal degenerative changes. Other: n/a IMPRESSION: No evidence of acute osseous abnormality involving the imaged knee.
--- NOTE | 2024-07-09 01:02 | EDPHYS ---
Physician Documentation [facility] Name: Cecelia Polk Age: 33 yrs Sex: Female : 1990 Arrival Date: 07/08/2024 Time: 21:11 Bed 11 Private MD: ED Physician Sudeep Owens HPI: 07/08 21:55 This 33 yrs old [place] Female presents to ER via EMS with complaints of Knee Pain - cp right. 21:55 The patient presents with an injury, pain, that is acute. The complaints affect the cp medial aspect of right knee and right knee. 21:55 Context: patient reports right knee became weak, causing her to fall onto knee in home cp today. 21:55 Associated signs and symptoms: The patient has no apparent associated signs or cp symptoms. Treatment prior to arrival includes: no previous treatment. 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 - Infectious Disease History:: Denies. - Social history:: Smoking status: Patient denies any tobacco usage or history of. ROS: 22:00 MS/extremity: Positive for pain, of the right knee, cp 22:00 Constitutional: Negative for body aches, chills, fever, poor PO intake, cp 22:00 Eyes: Negative for injury, pain, redness, and discharge, cp 22:00 Neck: Negative for pain with movement, pain at rest, stiffness, 22:00 Cardiovascular: Negative for chest pain, 22:00 Respiratory: Negative for cough, shortness of breath, wheezing, 22:00 Abdomen/GI: Negative for abdominal pain, vomiting, diarrhea, constipation, 22:00 Back: Negative for pain at rest, pain with movement, 22:00 Neuro: Negative for altered mental status, headache, 22:00 All other systems are negative, Exam: 22:05 Constitutional: The patient appears in no acute distress, alert, awake, well developed, cp well nourished, obese, uncomfortable, 22:05 Head/Face: Normocephalic, atraumatic. cp 22:05 Eyes: Periorbital structures: appear normal, Sclera: no appreciated abnormality, Lids and lashes: appear normal, bilaterally, 22:05 Neck: ROM/movement: is normal, is supple, without pain, no range of motions limitations, 22:05 Chest/axilla: Inspection: normal, 22:05 Cardiovascular: Rate: tachycardic, 22:05 Respiratory: the patient does not display signs of respiratory distress, Respirations: normal, no use of accessory muscles, no retractions, labored breathing, is not present, 22:05 Abdomen/GI: Inspection: abdomen appears normal, 22:05 Back: pain, is absent, ROM is normal, 22:05 Musculoskeletal/extremity: Extremities: noted in the right knee: tenderness, mild swelling and ecchymosis noted medial side of right knee, There is no evidence of decreased ROM, deformity, ROM: limited passive range of motion due to pain, in the right knee, Perfusion: the extremity is normally perfused throughout, the right foot and right leg Sensation intact. 22:05 Skin: cellulitis, is not appreciated, no rash present. Vital Signs: 21:34 BP 148 / 89; Resp 19; Temp 96.9(TE); Pulse Ox 98% on R/A; MAP 105 mmHg; Weight 92.08 tm6 kg; Height 5 ft. 6 in. ; Pain /; 23:47 BP 115 / 88; Pulse 111; Resp 18; Temp 97.8(O); Pulse Ox 98% on R/A; Weight 92.08 kg; oe Height 5 ft. 6 in. ; 07/09 01:24 BP 121 / 87; Pulse 91; Resp 17 S; Temp 97.5(O); Pulse Ox 99% on R/A; lg3 07/08 23:47 Body Mass Index 32.76 (92.08 kg, 167.64 cm) oe 07/08 21:34 Pain Scale: Adult tm6 MDM: 07/08 21:47 Medical Screening Exam initiated cp 07/09 01:00 Data reviewed: vital signs, nurses notes, radiologic studies, plain films. cp 01:00 Differential diagnosis: dislocation, closed fracture, contusion, sprain. I considered cp the following discharge prescriptions or medication management in the emergency department Medications were administered in the Emergency Department. See MAR. Independent interpretation of the following test(s) in the Emergency Department X-Ray: My interpretation is images of right knee negative for fracture. Counseling: I had a detailed discussion with the patient and/or guardian regarding the historical points, exam findings, and any diagnostic results supporting the discharge/admit diagnosis, radiology results, the need for outpatient follow up, a orthopedic surgeon, to return to the emergency department if symptoms worsen or persist or if there are any questions or concerns that arise at home. Response to treatment: the patient's symptoms have mildly improved after treatment, and as a result, I will discharge patient. 07/08 21:25 Order name: XRAY Knee RIGHT 3 view; Complete Time: 23:23 cp 07/08 23:23 Interpretation: Report reviewed. cp 07/09 01:00 Order name: Knee Immobilizer; Complete Time: cp 07/09 01:00 Order name: Crutches; Complete Time: cp Administered Medications: 01:14 Drug: Hydrocodone-Acetaminophen PO (7.5 mg-325 mg) 1 tabs PO once; RASS on ADMIN: lg3 Combtv4, Very Agttd3, Agttd2, Rstlss1, AlertClm0, Drwsy-1, Lt Sdtn-2, Mod Sdtn-3, Dp Sdtn-4, UnArsble-5 Route: PO; :27 Follow up: Response: No adverse reaction; RASS: Alert and Calm (0) lg3 01:14 Drug: Ibuprofen PO 800 mg PO once Route: PO; lg3 01:27 Follow up: Response: No adverse reaction lg3 Disposition: 18:40 Co-signature as Attending Physician, Sudeep Owens MD I agree with the assessment sp4 and plan of care. I reviewed the patient's care provided by the Advanced Practice Provider and agree with the diagnosis and treatment plan. Disposition Summary: 07/09/24 01:01 Discharge Ordered Notes: Location: Home cp Problem: new cp Symptoms: have improved cp Condition: Stable cp Diagnosis - Pain in right knee cp Followup: cp - With: Chuck Hernandez MD - When: 1 week - Reason: Recheck today's complaints Discharge Instructions: - Discharge Summary Sheet cp - How to Use a Knee Immobilizer cp - Acute Knee Pain, Adult cp Forms: - Medication Reconciliation Form cp - Antibiotic Education cp - Prescription Opioid Use cp - Patient Portal Instructions cp - Leadership Thank You Letter cp Prescriptions: - Anaprox DS 550 mg Oral Tablet - take 1 tablet ORAL route every 12 hours As needed; 20 tablet; Refills: 0, cp Product Selection Permitted Signatures: Dispatcher [employer] EDHeath Farr PA PA cp Able, Lacie, RN RN lg3 Sudeep Owens MD MD sp4 Demetrio Mccarthy RN RN tm6
--- NOTE | 2024-07-09 01:02 | ER ---
Nurse's Notes [facility] Name: Cecelia Polk Age: 33 yrs Sex: Female : 1990 Arrival Date: 07/08/2024 Time: 21:11 Bed 11 Private MD: Diagnosis: Pain in right knee Presentation: 07/08 21:22 Chief complaint: EMS states: been weak since her benedicto, fell today coming out of the 6 bathroom on right knee. Swelling to right knee. Pain 04/18. Fentanyl 50mcg intranasally. Coronavirus screen: Client denies travel out of the [place] in the last 14 days. Ebola Screen: Patient negative for fever greater than or equal to 101.5 degrees Fahrenheit, and additional compatible Ebola Virus Disease symptoms Patient denies exposure to infectious person. Patient denies travel to an Ebola-affected area in the 21 days before illness onset. No symptoms or risks identified at this time. Initial Sepsis Screen: Does the patient meet any 2 criteria? No. Patient's initial sepsis screen is negative. Does the patient have a suspected source of infection? No. Patient's initial sepsis screen is negative. Risk Assessment: Do you want to hurt yourself or someone else? Patient reports no desire to harm self or others. Onset of symptoms was July 08, 2024. 21:22 Method Of Arrival: EMS: [facility] 6 21:22 Acuity: CRISTOBAL 4 tm6 21:34 Care prior to arrival: Medication(s) given: 50mcg fentanyl intranasally. tm6 Triage Assessment: 21:34 General: Appears in no apparent distress. uncomfortable, Behavior is calm, cooperative. tm6 Pain: Complains of pain in right knee Pain currently is 6 out of 10 on a pain scale. EENT: No signs and/or symptoms were reported regarding the EENT system. Neuro: Level of Consciousness is awake, alert, obeys commands, Oriented to person, place, time, situation. Cardiovascular: Patient's skin is warm and dry. Respiratory: Airway is patent Respiratory effort is even, unlabored, Respiratory pattern is regular, symmetrical. GI: No signs and/or symptoms were reported involving the gastrointestinal system. Abdomen is round non-distended. : No signs and/or symptoms were reported regarding the genitourinary system. Derm: No signs and/or symptoms reported regarding the dermatologic system. Musculoskeletal: Reports pain in right knee. 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 - Infectious Disease History:: Denies. - Social history:: Smoking status: Patient denies any tobacco usage or history of. Screenin/01 01:24 [facility] ED Fall Risk Assessment (Adult) History of falling in the last 3 months, lg3 including since admission Yes- single mechanical fall (1 pt) Confusion or Disorientation No (0 pts) Intoxicated or Sedated No (0 pts) Impaired Gait No (0 pts) Mobility Assist Device Used No (0 pt) Altered Elimination No (0 pt) Score/Fall Risk Level 0 - 2 = Low Risk Oriented to surroundings, Maintained a safe environment, Educated pt \T\ family on fall prevention, incl call for assistance when getting out of bed, Assessed \T\ reinforced patient's understanding of fall precautions. Abuse screen: Denies threats or abuse. Denies injuries from another. Nutritional screening: No deficits noted. Tuberculosis screening: No symptoms or risk factors identified. Assessment: :24 General: Appears in no apparent distress. comfortable, Behavior is calm, cooperative. lg3 Pain: Complains of pain in right knee Pain currently is 5 out of 10 on a pain scale. Neuro: No deficits noted. [place] Agitation-Sedation Scale (RASS): 0 - Alert and Calm Level of Consciousness is awake, alert, obeys commands, Oriented to person, place, time, situation, Appropriate for age. Cardiovascular: No deficits noted. Denies chest pain, shortness of breath, Capillary refill < 3 seconds Clubbing of nail beds is absent JVD is absent Patient's skin is warm and dry. Respiratory: No deficits noted. Airway is patent Respiratory effort is even, unlabored, Respiratory pattern is regular, symmetrical. GI: No deficits noted. No signs and/or symptoms were reported involving the gastrointestinal system. Abdomen is round non-distended, obese. : No signs and/or symptoms were reported regarding the genitourinary system. EENT: No deficits noted. No signs and/or symptoms were reported regarding the EENT system. Derm: No deficits noted. Skin is intact, is healthy with good turgor, Skin is dry, Skin is normal, Skin temperature is warm. Musculoskeletal: Circulation, motion, and sensation intact. Range of motion: intact in all extremities, Swelling present in right knee Reports pain in right knee. Vital Signs: 07/08 21:34 BP 148 / 89; Resp 19; Temp 96.9(TE); Pulse Ox 98% on R/A; MAP 105 mmHg; Weight 92.08 tm6 kg; Height 5 ft. 6 in. ; Pain 6/10; 23:47 BP 115 / 88; Pulse 111; Resp 18; Temp 97.8(O); Pulse Ox 98% on R/A; Weight 92.08 kg; oe Height 5 ft. 6 in. ; 07/09 01:24 BP 121 / 87; Pulse 91; Resp 17 S; Temp 97.5(O); Pulse Ox 99% on R/A; lg3 07/08 23:47 Body Mass Index 32.76 (92.08 kg, 167.64 cm) oe 07/08 21:34 Pain Scale: Adult tm6 ED Course: 07/08 21:14 Patient arrived in ED. im 21:18 Heath Malone PA is PHCP. cp 21:18 Sudeep Owens MD is Attending Physician. cp 21:24 Triage completed. tm6 21:24 Arm band placed on right wrist. tm6 21:57 XRAY Knee RIGHT 3 view In Process Unspecified. EDMS 07/09 01:00 Chuck Hernandez MD is Referral Physician. cp 01:20 Crutch training done. Knee immobilizer applied on right knee. ty 01:24 Patient has correct armband on for positive identification. Bed in low position. Call lg3 light in reach. Side rails up X 1. Door closed. Noise minimized. Warm blanket given. Pillow given. 01:24 No provider procedures requiring assistance completed. Patient did not have IV access lg3 during this emergency room visit. Administered Medications: 01:14 Drug: Hydrocodone-Acetaminophen PO (7.5 mg-325 mg) 1 tabs PO once; RASS on ADMIN: lg3 Combtv4, Very Agttd3, Agttd2, Rstlss1, AlertClm0, Drwsy-1, Lt Sdtn-2, Mod Sdtn-3, Dp Sdtn-4, UnArsble-5 Route: PO; : Follow up: Response: No adverse reaction; RASS: Alert and Calm (0) lg3 01:14 Drug: Ibuprofen PO 800 mg PO once Route: PO; lg3 : Follow up: Response: No adverse reaction lg3 Medication: 01:24 VIS not applicable for this client. lg3 Outcome: 01:01 Discharge ordered by . cp :24 Discharged to home via wheelchair, with crutches, lg3 :24 Condition: stable 01:24 Discharge instructions given to patient, Instructed on discharge instructions, follow up and referral plans. medication usage, crutch walking, Demonstrated understanding of instructions, follow-up care, medications, crutch walking, Prescriptions given X 1, Patient left the ED. lg3 Signatures: Dispatcher [employer] EDMS Heath Malone PA PA cp Espinosa, [place] oe Able, Lacie, RN RN lg3 Carmen Robles Tawney, RN RN tm6 Leonel Crawley
[2024-07-09] MEDS ORDERED: HYDROCODONE/APAP 7.5/325 MG TAB ONE (01:05)
[2024-07-09] MEDS ORDERED: IBUPROFEN 400 MG TAB ONE (01:05)
[2024-07-09 04:36] VITALS: BP 121/87; TEMP 97.5; O2SAT 99
== END 2024-07-09 01:27 | disposition home or self-care (01) ==
LOC: ER 21:11
DX: M25.561 Pain in right knee (principal)
CPT/HCPCS: 99284